=== PATIENT | female | born 1965 | race Caucasian/White ===

== ENCOUNTER 2024-03-03 18:10 | Inpatient (IN) | payer OTHER ==
--- NOTE | 2024-03-03 18:39 | ED ---
Wound/Laceration HPI - General Chief Complaint: Wound/Laceration Stated Complaint: Infection/Wound in foot Time Seen by Provider: 03/03/24 18:16 Source: patient, RN/MD, RN notes reviewed Mode of arrival: EMS Limitations: no limitations - History of Present Illness Initial Comments: 58-year-old female with a history of type 2 diabetes history of heart disease hypertension former smoker who for the past several days has had redness and some swelling to the left foot and she started getting black coloration to the fifth toe on that foot. She presented to [facility] today with diagnosed with a diabetic foot infection. She is transferred here for higher level of care. She has had some chills no fevers or sweats however she was found to have elevated white blood cell count. She was started on IV antibiotics at that facility and transferred here. - Related Data Home Medications Medication Instructions Recorded Confirmed Albuterol Inhaler [Ventolin Hfa 2 puff INHALATION RT-Q6H PRN 06/23/15 03/03/24 Inhaler] Lisinopril/Hydrochlorothiazide 1 tab PO DAILY 06/23/15 03/03/24 [Zestoretic 20-25] Aspirin EC [Ecotrin Low Dose] 81 mg PO DAILY 03/03/24 03/03/24 Cetirizine HCl [Zyrtec] 10 mg PO DAILY PRN 03/03/24 03/03/24 Fluticasone Nasal [place] [Flonase 1 spray EA NOSTRIL DAILY PRN 03/03/24 03/03/24 Nasal [place]] Insulin Glargine,Hum.rec.anlog 20 - 40 units SQ HS 03/03/24 03/03/24 [Lantus Solostar Pen] Insulin Regular [humuLIN R] 20 - 40 units SQ DAILY 03/03/24 03/03/24 Metoprolol Tartrate [Lopressor] 50 mg PO BID 03/03/24 03/03/24 Allergies Allergy/AdvReac Type Severity Reaction Status Date / Time ciprofloxacin [From Cipro] AdvReac Nausea & Verified 03/03/24 18:52 Vomiting ciprofloxacin HCl AdvReac Nausea & Verified 03/03/24 18:52 [From Cipro] Vomiting clindamycin AdvReac Nausea & Verified 03/03/24 18:52 Vomiting sulfamethoxazole AdvReac Nausea & Verified 03/03/24 18:52 [From Bactrim] Vomiting trimethoprim [From Bactrim] AdvReac Nausea & Verified 03/03/24 18:52 Vomiting Review of Systems ROS Statement: Those systems with pertinent positive or pertinent negative responses have been documented in the HPI. ROS Other: All systems not noted in ROS Statement are negative. Past Medical History Past Medical History: Asthma, Diabetes Mellitus, Hypertension Additional Past Medical History / Comment(s): diabetes is diet controlled. retinitis pigmentosa (losing peripheral vision) History of Any Multi-Drug Resistant Organisms: None Reported Additional Past Surgical History / Comment(s): boil under armpit (2000) Past Anesthesia/Blood Transfusion Reactions: No Reported Reaction Past Psychological History: Anxiety Past Alcohol Use History: None Reported Past Drug Use History: None Reported - Past Family History Mother Family Medical History: Hypertension Additional Family Medical History / Comment(s): borderline diabetic Father Family Medical History: Cancer Additional Family Medical History / Comment(s): leukemia, stents placed, at 81 years old General Exam - General Exam Comments Initial Comments: This is a well-developed well-nourished awake alert oriented x 4 female Limitations: no limitations General appearance: alert, in no apparent distress Head exam: Present: atraumatic, normocephalic, normal inspection Eye exam: Present: normal appearance, PERRL, EOMI. Absent: scleral icterus, conjunctival injection, periorbital swelling ENT exam: Present: normal exam, mucous membranes moist Neck exam: Present: normal inspection. Absent: tenderness, meningismus, lymphadenopathy Respiratory exam: Present: normal lung sounds bilaterally. Absent: respiratory distress, wheezes, rales, rhonchi, stridor Cardiovascular Exam: Present: regular rate, normal rhythm, normal heart sounds. Absent: systolic murmur, diastolic murmur, rubs, gallop, clicks GI/Abdominal exam: Present: soft, normal bowel sounds. Absent: distended, tenderness, guarding, rebound, rigid Extremities exam: Present: full ROM, normal capillary refill, other (Left foot demonstrates some numbness to the dorsal aspect of the left foot with erythema consistent with a cellulitis the left fifth toe demonstrates stigmata of diabetic foot infection with what appears to be early eschar formation.). Absent: tenderness, pedal edema, joint swelling, calf tenderness Back exam: Present: normal inspection Neurological exam: Present: alert, oriented X3, CN II-XII intact Psychiatric exam: Present: normal affect, normal mood Skin exam: Present: warm, dry, intact, normal color. Absent: rash Course Vital Signs 03/03/24 18:23 Temperature 98.8 F Pulse Rate 65 Respiratory 18 Rate Blood Pressure 183/73 O2 Sat by Pulse 96 Oximetry Medical Decision Making - Medical Decision Making I did discuss the findings with the patient and family members I did review the materials from [facility]. Patient will be admitted infectious disease and vascular surgery consultation. IV antibiotics was pt. sent in by a medical professional or institution (, [facility], [facility], urgent care, hospital, or jail...) When possible be specific @ -No Did you speak to anyone other than the patient for history (EMS, parent, family, police, friend...)? What history was obtained from this source @ -MS as well as the ER DrAsim [facility] Did you review nursing and triage notes (agree or disagree)? Why? @ -I reviewed and agree with nursing and triage notes Were old charts reviewed (outside hosp., previous admission, EMS record, old EKG, old radiological studies, urgent care reports/EKG's, jail records)? Report findings @ -2014 reported on charts as well as [facility] charting old charts were reviewed Differential Diagnosis (chest pain, altered mental status, abdominal pain women, abdominal pain men, vaginal bleeding, weakness, fever, dyspnea, syncope, headache, dizziness, GI bleed, back pain, seizure, CVA, palpatations, mental health, musculoskeletal)? @ -Diabetic foot infection EKG interpreted by me (3pts min.). @ -Indicated X-rays interpreted by me (1pt min.). @ -Reviewed from [facility] CT interpreted by me (1pt min.). @ -None done U/S interpreted by me (1pt. min.). @ -None done What testing was considered but not performed or refused? (CT, X-rays, U/S, labs)? Why? @ -None What meds were considered but not given or refused? Why? @ -None Did you discuss the management of the patient with other professionals (professionals i.e. , [facility], [employer] [facility] [employer], lab, RT, psych nurse, social services director, international relations professor, teacher, marketing and communications officer, bilingual case manager)? Give summary @ -Did discuss case with Tarah Sheikh covering Dr. Castillo's group Was smoking cessation discussed for >3mins.? @ -No Was critical care preformed (if so, how long)? @ -No Were there social determinants of health that impacted care today? How? (Homelessness, low income, unemployed, alcoholism, drug addiction, transportation, low edu. Level, literacy, decrease access to med. care, [facility], rehab)? @ -No Was there de-escalation of care discussed even if they declined (Discuss DNR or withdrawal of care, Hospice)? DNR status @ -No What co-morbidities impacted this encounter? (DM, HTN, Smoking, COPD, CAD, Cancer, CVA, ARF, Chemo, Hep., AIDS, mental health diagnosis, sleep apnea, morbid obesity)? @ -Diabetes, hypertension, coronary artery disease history of 3 stents Was patient admitted / discharged? Hospital course, mention meds given and route, prescriptions, significant lab abnormalities, going to OR and other pertinent info. @ -Hospital course the patient was admitted for inpatient IV antibiotics ID consultation vascular surgery consultation Undiagnosed new problem with uncertain prognosis? @ -No Drug Therapy requiring intensive monitoring for toxicity (Heparin, Nitro, Insulin, Cardizem)? @ -No Were any procedures done? @ -No Diagnosis/symptom? @ -Acute diabetic foot infection foot, diabetic peripheral neuropathy Acute, or Chronic, or Acute on Chronic? @ -Acute Uncomplicated (without systemic symptoms) or Complicated (systemic symptoms)? @ -Complicated Side effects of treatment? @ -No Exacerbation, Progression, or Severe Exacerbation? @ -No Poses a threat to life or bodily function? How? (Chest pain, USA, NC, pneumonia, PE, COPD, DKA, ARF, appy, cholecystitis, CVA, Diverticulitis, Homicidal, Suicidal, threat to staff... and all critical care pts) @ -Mental Disposition Clinical Impression: Diabetic infection of left foot, Peripheral neuropathy Disposition: ADMITTED IP TO THIS HOSP Condition: Stable Referrals: Dylon Cortes MD [Primary Care Provider] - 1-2 days Time of Disposition: 20:00 Decision Date: 03/03/24 Decision Time: 20:00
[2024-03-03] MEDS ORDERED: NALOXONE 0.4 MG/ML 1 ML VIAL IV PRN (21:13)
[2024-03-03] MEDS ORDERED: FLUTICASONE 50MCG/SPRAY NASAL 16GM EA NOSTRIL PRN (21:16)
[2024-03-03] MEDS ORDERED: ALBUTEROL NEBULIZED 2.5 MG/3 ML INHALATION PRN (21:16)
[2024-03-03] MEDS ORDERED: LORATADINE 10 MG TAB PO PRN (21:16)
[2024-03-03] MEDS ORDERED: DEXTROSE 50% SYRINGE 50 ML IVP PRN ×2 (21:19)
[2024-03-03] MEDS: SODIUM CHLORIDE 0.9% 1,000 ML IV SCH (21:40)
[2024-03-03] MEDS: PIPERACILLIN-TAZOBACTAM 3.375 GM in SODIUM CHLORIDE 0.9% 100 ML IVPB STA (21:40)
[2024-03-03 23:09] LABS: Glucose,Whole Blood 129 mg/dL (70-110)
[2024-03-04] MEDS: INSULIN ASPART (NovoLOG) 100 UNIT/ML VIAL SQ SCH (07:34)
[2024-03-04 07:37] LABS: Glucose,Whole Blood 148 mg/dL (70-110)
[2024-03-04 08:31] LABS: ALT 14 U/L (4-34); AST 19 U/L (14-36); African American GFR (CKD) 49 (>60 ml/min/1.73 sqM); Albumin 3.5 g/dL (3.5-5.0); Albumin/Globulin Ratio 1.2; Alkaline Phosphatase 89 U/L (38-126); Anion Gap 9 mmol/L; Blood Urea Nitrogen 31 mg/dL (7-17); Calcium 8.3 mg/dL (8.4-10.2); Carbon Dioxide 24 mmol/L (22-30); Chloride 107 mmol/L (98-107); Globulin 2.9 g/dL; Glucose 135 mg/dL (74-99); Non-African American GFR(CKD) 42 (>60 ml/min/1.73 sqM); Potassium 4.3 mmol/L (3.5-5.1); Sodium 140 mmol/L (137-145); Total Bilirubin 0.4 mg/dL (0.2-1.3); Total Protein 6.4 g/dL (6.3-8.2)
[2024-03-04] MEDS: PIPERACILLIN-TAZOBACTAM 3.375 GM in SODIUM CHLORIDE 0.9% 100 ML IVPB SCH (08:54)
[2024-03-04] MEDS: METOPROLOL TARTRATE 50 MG TAB PO SCH (08:56)
--- NOTE | 2024-03-04 10:14 | US ---
EXAMINATION TYPE: US arterial LE multi level DATE OF EXAM: 03/04/2024 9:33 AM CLINICAL INDICATION: Female, 58 years old with history of left fifth toe gangrene,diabetes; Left 5th toe gangrene. burning sensation left foot History of: Smoker: previous Hypertension: yes Diabetic: yes Hyperlipidemia: no TIA/CVA: no Previous Vascular Surgery: yes, 3 cardiac stents 10 years ago [place]: yes Claudication: no Gangrene: yes Doppler Waveforms: Right: Monophasic Left: Monophasic Right Brachial Pressure: 143 Left Brachial Pressure: deferred due to IV Ankle-Brachial Indices: Right: n/a Left: 0.87 (Vessel hardening > 1.4; Normal 0.9 - 1.4, Moderate 0.7 - 0.9, Severe 0.5-0.7) Toe Brachial Indices: Right: 0.70 Left: unable to obtain IMPRESSION: Mild peripheral vascular disease on the left and limited evaluation of the right with noncompressible vessels on the right.
[2024-03-04] MEDS: LISINOPRIL-HCTZ 20-25 MG 1 EACH TAB PO SCH (10:16)
[2024-03-04 11:05] LABS: Basophils # (A) 0.05 X 10*3/uL (0.00-0.10); Basophils % (A) 0.4 %; Eosinophils # (A) 0.22 X 10*3/uL (0.04-0.35); Eosinophils % (A) 1.8 %; HCT 30.9 % (37.2-46.3); HGB 9.5 g/dL (12.0-15.0); Lymphocytes # (A) 1.46 X 10*3/uL (0.90-5.00); MCH 26.5 pg (27.0-32.0); MCHC 30.7 g/dL (32.0-37.0); MCV 86.3 FL (80.0-97.0); Mean Platelet Volume 10.2 FL (9.5-12.2); Monocytes # (A) 0.83 X 10*3/uL (0.20-1.00); Monocytes % (A) 6.8 %; NRBC Per 100 WBC 0 X 10*3/uL (0.00-0.01); Neutrophils # (A) 9.53 X 10*3/uL (1.80-7.70); Neutrophils % (A) 78.6 %; Platelet Count 364 X 10*3/uL (140-440); RBC 3.58 X 10*6/uL (4.10-5.20); RDW 15.1 % (11.5-14.5); WBC 12.14 X 10*3/uL (4.50-10.00)
--- NOTE | 2024-03-04 12:15 | P.GSCN ---
History of Present Illness Consult date: 03/04/24 Reason for Consult: Left diabetic foot infection Requesting physician: Shahram Braun History of present illness: This is a pleasant 58-year-old who was transferred from [facility] for concerns of acute left diabetic foot infection. She has a past medical history including insulin-dependent diabetes for 25 to 30 years, coronary artery disease status post stenting, asthma and hypertension. She states she noticed the toe turning black about 4 to 5 days ago. States that there was some burning pain associated with it. Patient does admit that she cannot sustain walking long distances that she we will get weakness in her hips and thighs. Denies any known history of peripheral arterial disease. She has been afebrile. She currently denies any chest pain, shortness of breath, abdominal pain, nausea or vomiting. She denies any fevers or chills. Labs WBC 12.1 hemoglobin 9.5 platelet count 364,000 sodium 140 potassium 4.3 BUN 31 creatinine 1.36 GFR 42 glucose 135 Hemoglobin A1c 9.6 Review of Systems A 14 point review systems was completed all pertinent positives and negatives as stated in the HPI. Past Medical History Past Medical History: Asthma, Diabetes Mellitus, Hypertension Additional Past Medical History / Comment(s): diabetes is diet controlled. retinitis pigmentosa (losing peripheral vision) History of Any Multi-Drug Resistant Organisms: None Reported Additional Past Surgical History / Comment(s): boil under armpit (2000) Past Anesthesia/Blood Transfusion Reactions: No Reported Reaction Past Psychological History: Anxiety Past Alcohol Use History: None Reported Past Drug Use History: None Reported - Past Family History Mother Family Medical History: Hypertension Additional Family Medical History / Comment(s): borderline diabetic Father Family Medical History: Cancer Additional Family Medical History / Comment(s): leukemia, stents placed, at 81 years old Medications and Allergies Home Medications Medication Instructions Recorded Confirmed Type Albuterol Inhaler [Ventolin Hfa 2 puff INHALATION RT-Q6H PRN 06/23/15 03/03/24 History Inhaler] Lisinopril/Hydrochlorothiazide 1 tab PO DAILY 06/23/15 03/03/24 History [Zestoretic 20-25] Aspirin EC [Ecotrin Low Dose] 81 mg PO DAILY 03/03/24 03/03/24 History Cetirizine HCl [Zyrtec] 10 mg PO DAILY PRN 03/03/24 03/03/24 History Fluticasone Nasal [place] [Flonase 1 spray EA NOSTRIL DAILY PRN 03/03/24 03/03/24 History Nasal [place]] Insulin Glargine,Hum.rec.anlog 20 - 40 units SQ HS 03/03/24 03/03/24 History [Lantus Solostar Pen] Insulin Regular [humuLIN R] 20 - 40 units SQ DAILY 03/03/24 03/03/24 History Metoprolol Tartrate [Lopressor] 50 mg PO BID 03/03/24 03/03/24 History Allergies Allergy/AdvReac Type Severity Reaction Status Date / Time ciprofloxacin [From Cipro] AdvReac Nausea & Verified 03/03/24 18:52 Vomiting ciprofloxacin HCl AdvReac Nausea & Verified 03/03/24 18:52 [From Cipro] Vomiting clindamycin AdvReac Nausea & Verified 03/03/24 18:52 Vomiting sulfamethoxazole AdvReac Nausea & Verified 03/03/24 18:52 [From Bactrim] Vomiting trimethoprim [From Bactrim] AdvReac Nausea & Verified 03/03/24 18:52 Vomiting Surgical - Exam Vital Signs Temp Pulse Resp BP Pulse Ox 98.8 F 65 18 183/73 96 03/03/24 18:23 03/03/24 18:23 03/03/24 18:23 03/03/24 18:23 03/03/24 18:23 General appearance: The patient is alert, oriented, appears in no acute distress. HET: Head is normocephalic and atraumatic. Pupils are equal and reactive. Neck: Supple. Right carotid bruit. Heart: Regular. Lungs: Equal expansion, normal respiratory effort. Abdomen: Soft, nontender, nondistended. Extremities: Bilateral femoral pulses present. Nonpalpable popliteal, PT and DP pulses. Left foot swelling, fifth toe dry gangrene, warm to the touch with good capillary refill and sensorimotor intact. Neurological: No focal deficits. alert and oriented x 3. Results - Labs 03/04/24 07:12 03/04/24 07:12 Abnormal Lab Results - Last 24 Hours (Table) 03/03/24 03/04/24 03/04/24 Range/Units 23:07 07:12 07:33 BUN 31 H (7-17) mg/dL Creatinine 1.36 H (0.52-1.04) mg/dL Glucose 135 H (74-99) mg/dL POC Glucose (mg/dL) 129 H 148 H (70-110) mg/dL Calcium 8.3 L (8.4-10.2) mg/dL Diabetes panel 03/04/24 Range/Units 07:12 Sodium 140 (137-145) mmol/L Potassium 4.3 (3.5-5.1) mmol/L Chloride 107 (98-107) mmol/L Carbon Dioxide 24 (22-30) mmol/L BUN 31 H (7-17) mg/dL Creatinine 1.36 H (0.52-1.04) mg/dL Glucose 135 H (74-99) mg/dL Calcium 8.3 L (8.4-10.2) mg/dL AST 19 (14-36) U/L ALT 14 (4-34) U/L Alkaline Phosphatase 89 (38-126) U/L Total Protein 6.4 (6.3-8.2) g/dL Albumin 3.5 (3.5-5.0) g/dL Calcium panel 03/04/24 Range/Units 07:12 Calcium 8.3 L (8.4-10.2) mg/dL Albumin 3.5 (3.5-5.0) g/dL Pituitary panel 03/04/24 Range/Units 07:12 Sodium 140 (137-145) mmol/L Potassium 4.3 (3.5-5.1) mmol/L Chloride 107 (98-107) mmol/L Carbon Dioxide 24 (22-30) mmol/L BUN 31 H (7-17) mg/dL Creatinine 1.36 H (0.52-1.04) mg/dL Glucose 135 H (74-99) mg/dL Calcium 8.3 L (8.4-10.2) mg/dL Adrenal panel 03/04/24 Range/Units 07:12 Sodium 140 (137-145) mmol/L Potassium 4.3 (3.5-5.1) mmol/L Chloride 107 (98-107) mmol/L Carbon Dioxide 24 (22-30) mmol/L BUN 31 H (7-17) mg/dL Creatinine 1.36 H (0.52-1.04) mg/dL Glucose 135 H (74-99) mg/dL Calcium 8.3 L (8.4-10.2) mg/dL Total Bilirubin 0.4 (0.2-1.3) mg/dL AST 19 (14-36) U/L ALT 14 (4-34) U/L Alkaline Phosphatase 89 (38-126) U/L Total Protein 6.4 (6.3-8.2) g/dL Albumin 3.5 (3.5-5.0) g/dL - Imaging Comments: Arterial ultrasound bilateral lower extremities, bilateral lower extremity monophasic Doppler waveforms, right lower extremity noncompressible, left GREGG 0.87. Impression reports mild peripheral vascular disease on the left and limited evaluation of the right with noncompressible vessels on the right. Assessment and Plan Assessment: 1. Dry gangrene left fifth toe 2. Insulin-dependent diabetes mellitus 3. History of coronary artery disease status post stents 4. Hypertension Plan: 1. Lower extremity arterial duplex ordered and reviewed 2. Carotid duplex ordered for right carotid bruit 3. CT angiogram abdomen pelvis aorta with runoff ordered for tomorrow 4. Continue IV hydration for now for elevated creatinine 5. Recommend strict glycemic control 6. Further recommendations forthcoming based on clinical course Thank you for this consultation, we will continue to follow. The impression and plan of care has been dictated as directed. I performed a history and examination of this patient, discussed the same with the dictator. I agree with the dictator's note ,documented as a scribe. Any additional findings or plans will be noted.
[2024-03-04 12:26] LABS: Glucose,Whole Blood 264 mg/dL (70-110)
--- NOTE | 2024-03-04 12:37 | US ---
EXAMINATION TYPE: US carotid duplex BILAT DATE OF EXAM: 03/04/2024 COMPARISON: NONE CLINICAL INDICATION: Female, 58 years old with history of right carotid bruit; right carotid bruit TECHNIQUE: Carotid duplex ultrasound examination. Indirect Doppler criteria was utilized. FINDINGS: EXAM MEASUREMENTS: RIGHT: Peak Systolic Velocity (PSV) cm/sec ----- Right CCA: 98.7 ----- Right ICA: 116 ----- Right ECA: 127 ICA/CCA ratio: 1.18 RIGHT: End Diastole cm/sec ----- Right CCA: 15.6 ----- Right ICA: 23.0 ----- Right ECA: 3.3 LEFT: Peak Systolic Velocity (PSV) cm/sec ----- Left CCA: 133 ----- Left ICA: 122 ----- Left ECA: 201 ICA/CCA ratio: 0.92 LEFT: End Diastole cm/sec ----- Left CCA: 19.8 ----- Left ICA: 35.5 ----- Left ECA: 2.6 VERTEBRALS (direction of flow): Right Vertebral: Antegrade Left Vertebral: Antegrade Rhythm: Normal BINGO CLERK NOTES: Mild plaque bilateral bifurcations. Increased velocities left ECA IMPRESSION: Less than 50% stenosis of the bilateral carotid bifurcations. Criteria for Assigning % of Stenosis / Diameter reduction (Estimation based on the indirect measurements of the internal carotid artery velocities (ICA PSV). 1. Normal (no stenosis)=ICA PSV < 125 cm/s: ratio < 2.0: ICA EDV<40 cm/s. 2. Less than 50% stenosis=ICA PSV < 125 cm/s: ratio < 2.0: ICA EDV<40 cm/s. 3. 50 to 69% stenosis=ICA PSV of 125 to 230 cm/s: ration 2.0 ? 4.0: ICA EDV 40-100 cm/s. 4. Greater than 70% stenosis to near occlusion= ICA PSV > 230 cm/s: ratio > 4.0: ICA EDV > 100 cm/s. 5. Near occlusion= ICA PSV velocities may be low or undetectable: variable ratio and ICA EDV. 6. Total occlusion=unable to detect flow.
[2024-03-04] MEDS ORDERED: VANCOMYCIN IV PER PHARMACY 1 EACH MISC MISCELLANE PRN (12:46)
[2024-03-04] MEDS: VANCOMYCIN 1,500 MG in SODIUM CHLORIDE 0.9% 500 ML 500 ML IVPB ONE (13:40)
[2024-03-04 16:46] LABS: Glucose,Whole Blood 342 mg/dL (70-110)
[2024-03-04] MEDS: AMPICILLIN-SULBACTAM 3 GM in SODIUM CHLORIDE 0.9% 100 ML IVPB SCH (17:21)
[2024-03-04 22:44] LABS: Glucose,Whole Blood 277 mg/dL (70-110)
--- NOTE | 2024-03-04 23:03 | P.CONS ---
History of Present Illness - Reason for Consult Consult date: 03/04/24 Diabetic foot infection Requesting physician: Shahram Braun - Chief Complaint Left fifth toe discoloration and foot redness X few days - History of Present Illness Patient is a 58-year-old female with a past medical history significant for diabetes mellitus hypertension and asthma patient presenting to the hospital for evaluation of left fifth toe discoloration apparently the patient initially presented to [facility] with discoloration of the left foot with associated swelling and some redness to the left foot area and the patient was subsequently transferred to [facility] patient mention her symptom has been going on for about 4 to 5 days she is not very clear about any trauma to the left foot area noticed to have discoloration with associated swelling redness and some burning pain, mild to moderate intensity denies having any drainage and no high-grade fever on presentation to the hospital the patient was afebrile no fever have recorded subsequently patient was not tachycardic hypotensive or hypoxic did have a white count of 12.14 with a left shift creatinine was 1.36 liver enzymes are normal patient has been started on Zosyn infectious disease was consulted for further management of antibiotic therapy Review of Systems Positive point and negatives has been mentioned in the HPI, complete review of systems was performed and all other systems are negative Past Medical History Past Medical History: Asthma, Diabetes Mellitus, Hypertension Additional Past Medical History / Comment(s): diabetes is diet controlled. retinitis pigmentosa (losing peripheral vision) History of Any Multi-Drug Resistant Organisms: None Reported Additional Past Surgical History / Comment(s): boil under armpit (2000) Past Anesthesia/Blood Transfusion Reactions: No Reported Reaction Past Psychological History: Anxiety Past Alcohol Use History: None Reported Past Drug Use History: None Reported - Past Family History Mother Family Medical History: Hypertension Additional Family Medical History / Comment(s): borderline diabetic Father Family Medical History: Cancer Additional Family Medical History / Comment(s): leukemia, stents placed, at 81 years old Medications and Allergies Home Medications Medication Instructions Recorded Confirmed Type Albuterol Inhaler [Ventolin Hfa 2 puff INHALATION RT-Q6H PRN 06/23/15 03/03/24 History Inhaler] Lisinopril/Hydrochlorothiazide 1 tab PO DAILY 06/23/15 03/03/24 History [Zestoretic 20-25] Aspirin EC [Ecotrin Low Dose] 81 mg PO DAILY 03/03/24 03/03/24 History Cetirizine HCl [Zyrtec] 10 mg PO DAILY PRN 03/03/24 03/03/24 History Fluticasone Nasal [place] [Flonase 1 spray EA NOSTRIL DAILY PRN 03/03/24 03/03/24 History Nasal [place]] Insulin Glargine,Hum.rec.anlog 20 - 40 units SQ HS 03/03/24 03/03/24 History [Lantus Solostar Pen] Insulin Regular [humuLIN R] 20 - 40 units SQ DAILY 03/03/24 03/03/24 History Metoprolol Tartrate [Lopressor] 50 mg PO BID 03/03/24 03/03/24 History Clopidogrel [Plavix] 75 mg PO DAILY #30 tab 03/07/24 Rx Acetaminophen Tab [Tylenol] 650 mg PO Q6HR PRN tab 03/08/24 Rx Amoxic-Pot Clav 875-125Mg 1 tab PO BID 10 Days #20 tab 03/08/24 Rx [Augmentin 875-125] Atorvastatin [Lipitor] 40 mg PO HS #30 tab 03/08/24 Rx Allergies Allergy/AdvReac Type Severity Reaction Status Date / Time ciprofloxacin [From Cipro] AdvReac Nausea & Verified 03/03/24 18:52 Vomiting ciprofloxacin HCl AdvReac Nausea & Verified 03/03/24 18:52 [From Cipro] Vomiting clindamycin AdvReac Nausea & Verified 03/03/24 18:52 Vomiting sulfamethoxazole AdvReac Nausea & Verified 03/03/24 18:52 [From Bactrim] Vomiting trimethoprim [From Bactrim] AdvReac Nausea & Verified 03/03/24 18:52 Vomiting Physical Exam Vitals: Vital Signs Temp Pulse Resp BP Pulse Ox 03/04/24 10:15 82 17 164/74 99 03/04/24 08:58 98.1 F 88 18 143/60 96 03/04/24 06:00 83 18 123/51 98 03/04/24 00:00 90 18 131/54 98 03/03/24 18:23 98.8 F 65 18 183/73 96 Intake and Output 03/03/24 03/04/24 03/04/24 22:59 06:59 14:59 Other: Weight 83.915 kg GENERAL DESCRIPTION: Middle-aged [place] lying in bed, no distress. No tachypnea or accessory muscle of respiration use. HEENT: Shows Pallor , no scleral icterus. Oral mucous membrane is dry. No p haryngeal erythema or thrush NECK: Trachea central, no thyromegaly. LUNGS: Unlabored breathing. Clear to auscultation anteriorly. No wheeze or crackle. HEART: S1, S2, regular rate and rhythm. No loud murmur ABDOMEN: Soft, no tenderness , guarding or rigidity, no organomegaly EXTREMITIES: Left fifth toe with discoloration and did have swelling and redness to the left foot dorsum area SKIN: No rash, no masses palpable. NEUROLOGICAL: The patient is awake, alert, oriented x3, mood and affect normal. Results CBC & Chem 7: 03/08/24 12:10 03/08/24 12:10 Labs: Abnormal Lab Results - Last 24 Hours (Table) 03/03/24 03/04/24 03/04/24 Range/Units 23:07 07:12 07:33 BUN 31 H (7-17) mg/dL Creatinine 1.36 H (0.52-1.04) mg/dL Glucose 135 H (74-99) mg/dL POC Glucose (mg/dL) 129 H 148 H (70-110) mg/dL Calcium 8.3 L (8.4-10.2) mg/dL Assessment and Plan (1) Allergy to multiple antibiotics Status: Acute Code(s): Z88.1 - ALLERGY STATUS TO OTHER ANTIBIOTIC AGENTS SNOMED Code(s): 291775776 (2) Cellulitis of left foot Status: Acute Code(s): L03.116 - CELLULITIS OF LEFT LOWER LIMB SNOMED Code(s): 58682159078078403 (3) Diabetic infection of left foot Status: Acute Code(s): E11.628 - TYPE 2 DIABETES MELLITUS WITH OTHER SKIN COMPLICATIONS; L08.9 - LOCAL INFECTION OF THE SKIN AND SUBCUTANEOUS TISSUE, UNSP SNOMED Code(s): 30420597 (4) Gangrene of toe of left foot Status: Acute Code(s): I96 - GANGRENE, NOT ELSEWHERE CLASSIFIED SNOMED Code(s): 83424025355605961 Plan: 1patient presented hospital left fifth toe gangrene in this patient with underlying diabetes mellitus and diabetic foot infection we will need to cover for the polymicrobial ortiz associated with diabetic foot infection. Patient has not been on antibiotic in the recent past clinical notes resistant gram- negative pathogen 2-discontinue Zosyn 3-we will start patient on vancomycin pharmacy to dose and Unasyn 4-await decision for vascular surgery regarding debridement/amputation of the fifth toe along with deep culture We will follow on clinical condition and cultures to further adjust medication if needed Thank you for this consultation we will follow the patient along with you Dictation was produced using [employer] dictation software. please excuse any grammatical, word or spelling errors. Time with Patient: Greater than 30
[2024-03-04] MEDS: INSULIN DETEMIR (LEVEMIR) 100 UNIT/ML SYR SQ SCH (23:52)
[2024-03-05] MEDS: ACETAMINOPHEN TAB 325 MG TAB PO PRN (00:11)
--- NOTE | 2024-03-05 00:14 | P.HPIM ---
History of Present Illness H&P Date: 03/04/24 Chief Complaint: Left toe infection Patient is a 58-year-old female with known history of coronary disease status post stent placement, diabetes type 2 insulin-dependent, hypertension, asthma and history of retinitis pigmentosa, anxiety presents to ER with complaints of left fifth toe discoloration. Patient states that she has been having worsening discoloration and and chills on and off for the past 4 to 5 days. Denies any recent trauma. Patient was initially presented to [facility] [place] the hospital and subsequently transferred to [facility] for further management. She was also having subjective fevers at home. She was given antibiotics prior to transfer. Left lower extremity vascular study showed mild peripheral vascular disease on the left and limited evaluation of the right with noncompressible vessels on the right. Laboratory data showed WBC 12.1 hemoglobin 9.5 and platelets 364 Sodium 140 potassium 4.3 chloride 107 bicarbonate 24 BUN 31 creatinine 1.36 and blood sugar 135 and he is A1c 9.6 liver enzymes are not elevated. Review of Systems Constitutional: Patient denies any fever or chills . No generalized weakness or weight loss. Abdomen: Patient denied nausea vomiting and diarrhea and abdominal pain. Cardiovascular: Patient denies any chest pain or short of breath no palpitations. Respiratory: patient denied any cough is from production. No shortness of breath Neurologic: Patient denied any numbness or tingling headache. Musculoskeletal: Patient denies any complaints of joint swelling or deformity. Left fifth toe infection/discoloration Skin: Negative Psychiatric: Negative Endocrine: No heat or cold intolerance. No recent weight gain. Genitourinary: No dysuria or hematuria. All other 14 point ROS negative except the above Past Medical History Past Medical History: Asthma, Diabetes Mellitus, Hypertension Additional Past Medical History / Comment(s): diabetes is diet controlled. retinitis pigmentosa (losing peripheral vision) History of Any Multi-Drug Resistant Organisms: None Reported Additional Past Surgical History / Comment(s): boil under armpit (2000) Past Anesthesia/Blood Transfusion Reactions: No Reported Reaction Past Psychological History: Anxiety Past Alcohol Use History: None Reported Past Drug Use History: None Reported - Past Family History Mother Family Medical History: Hypertension Additional Family Medical History / Comment(s): borderline diabetic Father Family Medical History: Cancer Additional Family Medical History / Comment(s): leukemia, stents placed, at 81 years old Medications and Allergies Home Medications Medication Instructions Recorded Confirmed Type Albuterol Inhaler [Ventolin Hfa 2 puff INHALATION RT-Q6H PRN 06/23/15 03/03/24 History Inhaler] Lisinopril/Hydrochlorothiazide 1 tab PO DAILY 06/23/15 03/03/24 History [Zestoretic 20-25] Aspirin EC [Ecotrin Low Dose] 81 mg PO DAILY 03/03/24 03/03/24 History Cetirizine HCl [Zyrtec] 10 mg PO DAILY PRN 03/03/24 03/03/24 History Fluticasone Nasal [place] [Flonase 1 spray EA NOSTRIL DAILY PRN 03/03/24 03/03/24 History Nasal [place]] Insulin Glargine,Hum.rec.anlog 20 - 40 units SQ HS 03/03/24 03/03/24 History [Lantus Solostar Pen] Insulin Regular [humuLIN R] 20 - 40 units SQ DAILY 03/03/24 03/03/24 History Metoprolol Tartrate [Lopressor] 50 mg PO BID 03/03/24 03/03/24 History Allergies Allergy/AdvReac Type Severity Reaction Status Date / Time ciprofloxacin [From Cipro] AdvReac Nausea & Verified 03/03/24 18:52 Vomiting ciprofloxacin HCl AdvReac Nausea & Verified 03/03/24 18:52 [From Cipro] Vomiting clindamycin AdvReac Nausea & Verified 03/03/24 18:52 Vomiting sulfamethoxazole AdvReac Nausea & Verified 03/03/24 18:52 [From Bactrim] Vomiting trimethoprim [From Bactrim] AdvReac Nausea & Verified 03/03/24 18:52 Vomiting Physical Exam Vitals: Vital Signs Temp Pulse Resp BP Pulse Ox 03/04/24 08:58 98.1 F 88 18 143/60 96 03/04/24 06:00 83 18 123/51 98 03/04/24 00:00 90 18 131/54 98 03/03/24 18:23 98.8 F 65 18 183/73 96 Intake and Output 03/03/24 03/04/24 03/04/24 22:59 06:59 14:59 Other: Weight 83.915 kg PHYSICAL EXAMINATION: Patient is lying in the bed comfortably, no acute distress, awake alert and oriented.. HEENT: Normocephalic. Neck is supple. Pupils reactive. Nostrils clear. Oral cavity is moist. Neck reveals no JVD, carotid bruits, or thyromegaly. CHEST EXAMINATION: Trachea is central. Symmetrical expansion. Lung fernandes clear to auscultation and percussion. CARDIAC: Normal S1, S2 with no gallops. No murmurs ABDOMEN: Soft. Bowel sounds normal. No organomegaly. No abdominal bruits. Extremities: reveal no edema. Left fifth toe discoloration. No discharge noted. No clubbing or cyanosis Neurologically awake, alert, oriented x3 with well-coordinated movements. No focal deficits noted Skin: No rash or skin lesions. Psychiatric: Coperative. Nonsuicidal Musculoskeletal: No joint swelling or deformity. Normal range of motion. Results CBC & Chem 7: 03/04/24 07:12 03/05/24 07:05 Labs: Abnormal Lab Results - Last 24 Hours (Table) 03/03/24 03/04/24 03/04/24 Range/Units 23:07 07:12 07:33 BUN 31 H (7-17) mg/dL Creatinine 1.36 H (0.52-1.04) mg/dL Glucose 135 H (74-99) mg/dL POC Glucose (mg/dL) 129 H 148 H (70-110) mg/dL Calcium 8.3 L (8.4-10.2) mg/dL Thrombosis Risk Factor Assmnt - DVT/VTE Prophylaxis DVT/VTE Prophylaxis: Pharmacologic Prophylaxis ordered Assessment and Plan Assessment: Left fifth toe gangrene and diabetic foot infection Diabetes type 2 insulin-dependent uncontrolled with A1c level 9.6 Acute kidney injury with underlying CKD stage III Coronary disease with history of stent placement Hypertension Asthma Retinitis pigmentosa with loss of peripheral vision Anxiety Prior history of smoking DVT prophylaxis with heparin subcu Plan: Patient will be continued on antibiotics. He was given a dose of Zosyn in the ER. Continue with Unasyn and vancomycin as per ID recommendations. Vascular surgery was consulted for possible debridement and deep wound cultures. Aspirin is on hold. Continue the insulin regimen and titrate dose as needed. Albuterol elation as needed for shortness of breath. ID and vascular surgery is on board. Follow-up closely. Time with Patient: Greater than 30
[2024-03-05 07:42] LABS: Glucose,Whole Blood 271 mg/dL (70-110)
[2024-03-05 08:00] LABS: African American GFR (CKD) 42 (>60 ml/min/1.73 sqM); Anion Gap 11 mmol/L; Blood Urea Nitrogen 28 mg/dL (7-17); Calcium 8.1 mg/dL (8.4-10.2); Carbon Dioxide 21 mmol/L (22-30); Chloride 108 mmol/L (98-107); Glucose 280 mg/dL (74-99); Non-African American GFR(CKD) 37 (>60 ml/min/1.73 sqM); Potassium 4.5 mmol/L (3.5-5.1); Sodium 140 mmol/L (137-145)
--- NOTE | 2024-03-05 09:10 | P.PN ---
Subjective Progress Note Date: 03/05/24 Principal diagnosis: Gangrene left fifth toe Patient is seen and examined today as a follow-up. She went down for her CT angiogram this morning. Results are currently pending. She has been afebrile. She denies any fevers chills, abdominal pain, nausea or vomiting. No increase in pain in the left foot. Infectious diseases following patient, she is currently on Unasyn and vancomycin. Patient underwent carotid duplex yesterday which reported less than 50% stenosis of bilateral carotid bifurcations. Objective - Vital Signs Vital signs: Vital Signs Temp 98.6 F 03/05/24 07:15 Pulse 89 03/05/24 07:15 Resp 15 03/05/24 07:15 BP 175/71 03/05/24 07:15 Pulse Ox 95 03/05/24 07:15 FiO2 Intake & Output 03/04/24 03/05/24 03/05/24 18:59 06:59 18:59 Intake Total 590 Balance 590 Weight 83.915 kg Intake: Oral 590 Other: Voiding Method Toilet # Voids 1 - Exam General appearance: The patient is alert, oriented, appears in no acute distress. HET: Head is normocephalic and atraumatic. Pupils are equal and reactive. Neck: Supple. Abdomen: Soft, nondistended. Extremities: Left foot swelling, fifth toe dry gangrene. Neurological: No focal deficits. Alert and oriented x 3. - Labs CBC & Chem 7: 03/05/24 07:05 03/05/24 07:05 Labs: Abnormal Lab Results - Last 24 Hours (Table) 03/04/24 03/04/24 03/04/24 Range/Units 07:12 07:12 12:24 WBC 12.14 H (4.50-10.00) X 10*3/uL RBC 3.58 L (4.10-5.20) X 10*6/uL Hgb 9.5 L (12.0-15.0) g/dL Hct 30.9 L (37.2-46.3) % MCH 26.5 L (27.0-32.0) pg MCHC 30.7 L (32.0-37.0) g/dL RDW 15.1 H (11.5-14.5) % Immature Gran # 0.05 H (0.00-0.04) X 10*3/uL Neutrophils # 9.53 H (1.80-7.70) X 10*3/uL Chloride (98-107) mmol/L Carbon Dioxide (22-30) mmol/L BUN (7-17) mg/dL Creatinine (0.52-1.04) mg/dL Glucose (74-99) mg/dL POC Glucose (mg/dL) 264 H (70-110) mg/dL Hemoglobin A1c 9.6 H (<=6.0) % Calcium (8.4-10.2) mg/dL 03/04/24 03/04/24 03/05/24 Range/Units 16:43 22:41 07:05 WBC (4.50-10.00) X 10*3/uL RBC (4.10-5.20) X 10*6/uL Hgb (12.0-15.0) g/dL Hct (37.2-46.3) % MCH (27.0-32.0) pg MCHC (32.0-37.0) g/dL RDW (11.5-14.5) % Immature Gran # (0.00-0.04) X 10*3/uL Neutrophils # (1.80-7.70) X 10*3/uL Chloride 108 H (98-107) mmol/L Carbon Dioxide 21 L (22-30) mmol/L BUN 28 H (7-17) mg/dL Creatinine 1.53 H (0.52-1.04) mg/dL Glucose 280 H (74-99) mg/dL POC Glucose (mg/dL) 342 H 277 H (70-110) mg/dL Hemoglobin A1c (<=6.0) % Calcium 8.1 L (8.4-10.2) mg/dL 03/05/24 Range/Units 07:40 WBC (4.50-10.00) X 10*3/uL RBC (4.10-5.20) X 10*6/uL Hgb (12.0-15.0) g/dL Hct (37.2-46.3) % MCH (27.0-32.0) pg MCHC (32.0-37.0) g/dL RDW (11.5-14.5) % Immature Gran # (0.00-0.04) X 10*3/uL Neutrophils # (1.80-7.70) X 10*3/uL Chloride (98-107) mmol/L Carbon Dioxide (22-30) mmol/L BUN (7-17) mg/dL Creatinine (0.52-1.04) mg/dL Glucose (74-99) mg/dL POC Glucose (mg/dL) 271 H (70-110) mg/dL Hemoglobin A1c (<=6.0) % Calcium (8.4-10.2) mg/dL Assessment and Plan Assessment: 1. Dry gangrene left fifth toe 2. Insulin-dependent diabetes mellitus 3. History of coronary artery disease status post stents 4. Hypertension Plan: 1. Lower extremity arterial duplex ordered and reviewed 2. Carotid duplex ordered for right carotid bruit, less than 50% stenosis bilateral carotid bifurcations 3. CT angiogram abdomen pelvis aorta with runoff reviewed 4. Consistent carbohydrate diet 5. Recommend strict glycemic control 6. Will plan for abdominal aortogram with runoff on , 03/07/2024 Thank you for this consultation, we will continue to follow. The impression and plan of care has been dictated as directed. Dr. Haines I performed a history and examination of this patient, discussed the same with the dictator. I agree with the dictator's note ,documented as a scribe. Any additional findings or plans will be noted.
[2024-03-05] MEDS: HEPARIN SODIUM,PORCINE 5,000 UNIT/ML 1 ML VIAL SQ SCH (09:58)
[2024-03-05] MEDS: VANCOMYCIN 1,500 MG in SODIUM CHLORIDE 0.9% 500 ML 500 ML IVPB SCH (11:07)
--- NOTE | 2024-03-05 11:18 | CT ---
EXAMINATION TYPE: CT angio abd aorta w/Runoff CT DLP: 2531 mGycm, Automated exposure control for dose reduction was used. DATE OF EXAM: 03/05/2024 9:09 AM COMPARISON: None CLINICAL INDICATION:Female, 58 years old with history of left fifth toe gangrene, nonpalpable pulses; PHH, left fifth toe gangrene, nonpalpable pulses TECHNIQUE: Multiple thin slice sub-millimeter images were obtained after administration of contrast. 3-D reconstructed images and maximum intensity projection images were obtained. CT angio abd aorta w /Runoff CT Contrast: Contrast used:80 mL of Isovue 370 with IV Contrast, Oral contrast used: None FINDINGS: CTA Abdomen and pelvis: The abdominal aorta does not demonstrate aneurysmal dilatation. Atherosclero tic plaquing is identified within the abdominal aorta. There is a small caliber of the abdominal aort a. The origins of the superior mesenteric artery, renal arteries, catheter lab CT angiogram mesenteri c artery, and celiac axis are patent. There are 2 left and one right renal arteries. The iliac vessel s are normal in morphology the common iliac and external iliac arteries are patent. No significant st enosis. CTA Lower extremities: Right: The common femoral and superficial femoral arteries are patent. There is severe atheroscleroti c plaque along the course of the superficial femoral artery with scattered areas of high-grade stenos is. There is poor visualization of contrast within the vasculature especially in the popliteal artery which is diminutive with severe atherosclerotic plaque. Posterior and anterior tibial arteries are h eavily calcified and have limited evaluation there felt to be patent. Left: The common femoral and superficial femoral arteries are patent. There is severe atheroscleroti c plaque along the course of the superficial femoral artery with scattered areas of high-grade stenos is. There is poor visualization of contrast within the vasculature especially in the popliteal artery which is diminutive with severe atherosclerotic plaque. Posterior and anterior tibial arteries are h eavily calcified and have limited evaluation there felt to be patent. LOWER CHEST: The lower septal thickening with trace bilateral pleural effusions and cardiomegaly. No evidence of focal consolidation, pneumothorax. LIVER: Unremarkable GALLBLADDER AND BILE DUCTS: Layering high density gallstones in the gallbladder lumen. PANCREAS: Unremarkable. SPLEEN: Unremarkable. ADRENAL GLANDS: Unremarkable. KIDNEYS AND URETERS: No evidence of hydronephrosis or renal calculus. The ureters are unremarkable. Areas of cortical thinning within the right kidney suggestive of prior vascular insults. PELVIS BLADDER: Unremarkable REPRODUCTIVE: Arterial enhancing lesion within the left ovary which is asymmetric. ABDOMEN & PELVIS STOMACH AND BOWEL: No evidence of bowel obstruction. PERITONEUM: No evidence of pneumoperitoneum or free fluid. MUSCULOSKELETAL: No acute osseous abnormalities LYMPH NODES: No gross evidence for lymphadenopathy. SOFT TISSUE/ABDOMINAL WALL: Fat-containing umbilical hernia. IMPRESSION 1. Heavily calcified bilateral lower extremity arterial vasculature involving the superficial femora l arteries and extending inferiorly to the. Evaluation extending from the popliteal artery to the fee t is limited due to severe atherosclerotic plaque. There is diminutive caliber of the superficial fem oral arteries with multiple areas of high-grade stenosis. Consider [employer] angiogram for definitive evaluation of the arterial vasculature extending from the popliteal arteries to the feet. 2. Pulmonary vascular congestion and trace bilateral pleural effusions correlate serum BNP for conge stive heart failure. Few airspace opacities could also be sequela from heart failure. 3. Arterial enhancing region in the left ovary which is asymmetric.
[2024-03-05 11:40] LABS: Basophils # (A) 0.03 X 10*3/uL (0.00-0.10); Basophils % (A) 0.3 %; Eosinophils # (A) 0.14 X 10*3/uL (0.04-0.35); Eosinophils % (A) 1.4 %; HCT 27.8 % (37.2-46.3); HGB 8.4 g/dL (12.0-15.0); Lymphocytes # (A) 1.48 X 10*3/uL (0.90-5.00); Lymphocytes % (A) 15.2 %; MCH 25.8 pg (27.0-32.0); MCHC 30.2 g/dL (32.0-37.0); MCV 85.5 FL (80.0-97.0); Mean Platelet Volume 9.9 FL (9.5-12.2); Monocytes # (A) 0.66 X 10*3/uL (0.20-1.00); Monocytes % (A) 6.8 %; NRBC Per 100 WBC 0 X 10*3/uL (0.00-0.01); Neutrophils # (A) 7.39 X 10*3/uL (1.80-7.70); Neutrophils % (A) 75.9 %; Platelet Count 335 X 10*3/uL (140-440); RBC 3.25 X 10*6/uL (4.10-5.20); WBC 9.74 X 10*3/uL (4.50-10.00)
[2024-03-05 12:07] LABS: % Iron Saturation 7.22 (12.00-45.00); Iron 20 UG/DL (50-170); Total Iron Binding Capacity 277 UG/DL (228-460)
[2024-03-05 12:12] LABS: Glucose,Whole Blood 211 mg/dL (70-110)
[2024-03-05 15:15] VITALS: BMI 31.7
[2024-03-05 17:31] LABS: Glucose,Whole Blood 256 mg/dL (70-110)
[2024-03-05 20:34] LABS: Glucose,Whole Blood 262 mg/dL (70-110)
[2024-03-05] MEDS: PANTOPRAZOLE 40 MG TABLET PO SCH (21:54)
--- NOTE | 2024-03-05 23:23 | P.PN ---
Subjective Progress Note Date: 03/05/24 Patient is a 58-year-old female with known history of coronary disease status post stent placement, diabetes type 2 insulin-dependent, hypertension, asthma and history of retinitis pigmentosa, anxiety presents to ER with complaints of left fifth toe discoloration. Patient states that she has been having worsening discoloration and and chills on and off for the past 4 to 5 days. Denies any recent trauma. Patient was initially presented to [facility] in the hospital and subsequently transferred to [facility] for further management. She was also having subjective fevers at home. She was given antibiotics prior to transfer. Left lower extremity vascular study showed mild peripheral vascular disease on the left and limited evaluation of the right with noncompressible vessels on the right. Laboratory data showed WBC 12.1 hemoglobin 9.5 and platelets 364 Sodium 140 potassium 4.3 chloride 107 bicarbonate 24 BUN 31 creatinine 1.36 and blood sugar 135 and he is A1c 9.6 liver enzymes are not elevated. 03/05/2024 Patient is currently sitting in the chair. Awake active alert intact significant no complaints of chest pain or shortness of breath. No fever no chills. On room air. No cough or sputum production. Patient had CT angiogram of the abdomen aorta with runoff showed heavily calcified bilateral lower extremity arterial vasculature involving the superficial femoral arteries and extending inferiorly to the popliteal artery to the feet is limited due to severe atherosclerotic plaque. Pulmonary vascular congestion and trace bilateral pleural effusions correlate serum BNP for CHF. Diffuse airspace opacities could also be sequela of heart failure. Arterial enhancing lesion in the left ovary which is asymmetric. Laboratory data showed WBC 9.7 hemoglobin 8.4 and platelets 335 iron profile is consistent with deficiency. B12 331 Otherwise renal function worsened with creatinine level 1.53 and BUN 28. Patient is being continued on antibiotics Unasyn and vancomycin. ID and vascular surgery is on board. Current medications reviewed. Objective - Vital Signs Vital signs: Vital Signs Temp 97.8 F 03/05/24 20:00 Pulse 93 03/05/24 20:00 Resp 16 03/05/24 20:00 BP 163/74 03/05/24 20:00 Pulse Ox 97 03/05/24 20:00 FiO2 Intake & Output 03/05/24 03/05/24 03/06/24 06:59 18:59 06:59 Intake Total 590 360 Balance 590 360 Weight 83.915 kg 83.915 kg Intake: Oral 590 360 Other: Voiding Method Toilet Toilet # Voids 1 4 - Exam PHYSICAL EXAMINATION: Patient is lying in the bed comfortably, no acute distress, awake alert and oriented.. HEENT: Normocephalic. Neck is supple. Pupils reactive. Nostrils clear. Oral cavity is moist. Neck reveals no JVD, carotid bruits, or thyromegaly. CHEST EXAMINATION: Trachea is central. Symmetrical expansion. Lung fernandes clear to auscultation and percussion. CARDIAC: Normal S1, S2 with no gallops. No murmurs ABDOMEN: Soft. Bowel sounds normal. No organomegaly. No abdominal bruits. Extremities: reveal no edema. Left fifth toe discoloration. No discharge noted. No clubbing or cyanosis Neurologically awake, alert, oriented x3 with well-coordinated movements. No focal deficits noted Skin: No rash or skin lesions. Psychiatric: Coperative. Nonsuicidal Musculoskeletal: No joint swelling or deformity. Normal range of motion. - Labs CBC & Chem 7: 03/05/24 07:05 03/05/24 07:05 Labs: Abnormal Lab Results - Last 24 Hours (Table) 03/05/24 03/05/24 03/05/24 Range/Units 07:05 07:05 07:40 RBC 3.25 L (4.10-5.20) X 10*6/uL Hgb 8.4 L (12.0-15.0) g/dL Hct 27.8 L (37.2-46.3) % MCH 25.8 L (27.0-32.0) pg MCHC 30.2 L (32.0-37.0) g/dL RDW 15.0 H (11.5-14.5) % Chloride 108 H (98-107) mmol/L Carbon Dioxide 21 L (22-30) mmol/L BUN 28 H (7-17) mg/dL Creatinine 1.53 H (0.52-1.04) mg/dL Glucose 280 H (74-99) mg/dL POC Glucose (mg/dL) 271 H (70-110) mg/dL Calcium 8.1 L (8.4-10.2) mg/dL Iron 20 L (50-170) UG/DL % Saturation 7.22 L (12.00-45.00) Transferrin 198.0 L (204.0-354.0) mg/dL 03/05/24 03/05/24 03/05/24 Range/Units 12:09 17:30 20:33 RBC (4.10-5.20) X 10*6/uL Hgb (12.0-15.0) g/dL Hct (37.2-46.3) % MCH (27.0-32.0) pg MCHC (32.0-37.0) g/dL RDW (11.5-14.5) % Chloride (98-107) mmol/L Carbon Dioxide (22-30) mmol/L BUN (7-17) mg/dL Creatinine (0.52-1.04) mg/dL Glucose (74-99) mg/dL POC Glucose (mg/dL) 211 H 256 H 262 H (70-110) mg/dL Calcium (8.4-10.2) mg/dL Iron (50-170) UG/DL % Saturation (12.00-45.00) Transferrin (204.0-354.0) mg/dL Assessment and Plan Assessment: Left fifth toe gangrene and diabetic foot infection Diabetes type 2 insulin-dependent uncontrolled with A1c level 9.6 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 With underlying CKD stage III Iron deficiency anemia Coronary disease with history of stent placement Hypertension Asthma Retinitis pigmentosa with loss of peripheral vision Anxiety Prior history of smoking DVT prophylaxis with heparin subcu Plan: Patient will be continued on antibiotics. He was given a dose of Zosyn in the ER. Continue with Unasyn and vancomycin as per ID recommendations. Vascular surgery was consulted for possible debridement and deep wound cultures. Patient had current duplex and also abdominal aorta with runoff. Vascular surgery is planning for abdominal aortogram with runoff on , 03/07/2024 Aspirin is on hold. Will supplement IV iron once infection is controlled. Continue the insulin regimen and titrate dose as needed. Albuterol elation as needed for shortness of breath. ID and vascular surgery is on board. Follow-up closely. Time with Patient: Greater than 30
[2024-03-06] MEDS: CALCIUM CARBONATE 500 MG CHEWABLE PO PRN (01:42)
[2024-03-06 04:06] LABS: Glucose,Whole Blood 119 mg/dL (70-110)
[2024-03-06 07:10] LABS: Glucose,Whole Blood 122 mg/dL (70-110)
[2024-03-06] MEDS: INSULIN ASPART (NovoLOG) 100 UNIT/ML VIAL SQ SCH (08:04)
[2024-03-06 08:13] LABS: African American GFR (CKD) 62 (>60 ml/min/1.73 sqM); Anion Gap 8 mmol/L; Blood Urea Nitrogen 19 mg/dL (7-17); Calcium 8.8 mg/dL (8.4-10.2); Carbon Dioxide 23 mmol/L (22-30); Chloride 107 mmol/L (98-107); Glucose 108 mg/dL (74-99); Non-African American GFR(CKD) 54 (>60 ml/min/1.73 sqM); Potassium 4.2 mmol/L (3.5-5.1); Sodium 138 mmol/L (137-145)
--- NOTE | 2024-03-06 10:44 | P.PN ---
Subjective Progress Note Date: 03/06/24 Principal diagnosis: Gangrene left fifth toe Patient is seen and examined today as a follow-up. She states that she is having shortness of breath and lower extremity swelling. She does have asthma and he has not used her albuterol as ordered. Repeat BMP sodium 138 potassium 4 .2 BUN 19 creatinine 1.12 glucose 108. She has been afebrile. Oxygen saturation 93 to 100% on room air. Patient underwent CT angiogram yesterday reporting heavily calcified bilateral lower extremity arterial vasculature with severe arthrosclerotic plaque. Pulmonary vascular congestion and trace bilateral pleural effusion correlate serum BNP for congestive heart failure. Few airspace opacities could also be sequela from heart failure. Arterial enhancing region left ovary which is asymmetric. Objective - Vital Signs Vital signs: Vital Signs Temp 98.7 F 03/06/24 07:10 Pulse 88 03/06/24 07:10 Resp 17 03/06/24 07:10 BP 151/78 03/06/24 07:10 Pulse Ox 93 L 03/06/24 07:10 FiO2 Intake & Output 03/05/24 03/06/24 03/06/24 18:59 06:59 18:59 Intake Total 360 590 Output Total 286 Balance 360 304 Weight 83.915 kg Intake: Oral 360 590 Output: Post Void Residual 286 Other: Voiding Method Toilet Toilet # Voids 4 2 - Exam . General appearance: The patient is alert, oriented, appears in no acute distress. HET: Head is normocephalic and atraumatic. Pupils are equal and reactive. Neck: Supple. Heart: Regular. Lungs: Equal expansion, normal respiratory effort. Abdomen: Soft, nontender, nondistended. Extremities: Bilateral lower extremity edema. Left foot with erythema on dorsal aspect of foot, fifth toe dry gangrene. Good capillary refill. Neurological: No focal deficits. Strength and sensation are grossly intact. - Labs CBC & Chem 7: 03/05/24 07:05 03/06/24 06:59 Labs: Abnormal Lab Results - Last 24 Hours (Table) 03/05/24 03/05/24 03/05/24 Range/Units 07:05 07:05 12:09 RBC 3.25 L (4.10-5.20) X 10*6/uL Hgb 8.4 L (12.0-15.0) g/dL Hct 27.8 L (37.2-46.3) % MCH 25.8 L (27.0-32.0) pg MCHC 30.2 L (32.0-37.0) g/dL RDW 15.0 H (11.5-14.5) % BUN (7-17) mg/dL Creatinine (0.52-1.04) mg/dL Glucose (74-99) mg/dL POC Glucose (mg/dL) 211 H (70-110) mg/dL Iron 20 L (50-170) UG/DL % Saturation 7.22 L (12.00-45.00) Transferrin 198.0 L (204.0-354.0) mg/dL 03/05/24 03/05/24 03/06/24 Range/Units 17:30 20:33 04:03 RBC (4.10-5.20) X 10*6/uL Hgb (12.0-15.0) g/dL Hct (37.2-46.3) % MCH (27.0-32.0) pg MCHC (32.0-37.0) g/dL RDW (11.5-14.5) % BUN (7-17) mg/dL Creatinine (0.52-1.04) mg/dL Glucose (74-99) mg/dL POC Glucose (mg/dL) 256 H 262 H 119 H (70-110) mg/dL Iron (50-170) UG/DL % Saturation (12.00-45.00) Transferrin (204.0-354.0) mg/dL 03/06/24 03/06/24 Range/Units 06:59 07:08 RBC (4.10-5.20) X 10*6/uL Hgb (12.0-15.0) g/dL Hct (37.2-46.3) % MCH (27.0-32.0) pg MCHC (32.0-37.0) g/dL RDW (11.5-14.5) % BUN 19 H (7-17) mg/dL Creatinine 1.12 H (0.52-1.04) mg/dL Glucose 108 H (74-99) mg/dL POC Glucose (mg/dL) 122 H (70-110) mg/dL Iron (50-170) UG/DL % Saturation (12.00-45.00) Transferrin (204.0-354.0) mg/dL Assessment and Plan Assessment: 1. Dry gangrene left fifth toe 2. Bilateral lower extremity peripheral vascular disease 3. Insulin-dependent diabetes mellitus 4. Shortness of breath 4. History of coronary artery disease status post stents 5. Hypertension 6. Asthma Plan: 1. Lower extremity arterial duplex ordered and reviewed 2. Carotid duplex ordered for right carotid bruit, less than 50% stenosis bilateral carotid bifurcations 3. CT angiogram abdomen pelvis aorta with runoff reviewed 4. Consistent carbohydrate diet. N.p.o. after midnight 5. Recommend strict glycemic control 6. Chest x-ray ordered 7. Discontinue IV fluids 8. ROSETTA hose to bilateral lower extremities 9. Rest of medical management per primary medical team 10. Will plan for abdominal aortogram with runoff on , 03/07/2024 with possible intervention Thank you for this consultation, we will continue to follow. The impression and plan of care has been dictated as directed. Dr. Ledesma I performed a history and examination of this patient, discussed the same with the dictator. I agree with the dictator's note ,documented as a scribe. Any additional findings or plans will be noted.
[2024-03-06] MEDS: FUROSEMIDE 10 MG/ML 2 ML VIAL IV ONE (11:35)
[2024-03-06 12:23] LABS: Glucose,Whole Blood 277 mg/dL (70-110)
--- NOTE | 2024-03-06 13:15 | XR ---
EXAMINATION TYPE: XR chest 2V DATE OF EXAM: 03/06/2024 COMPARISON: 06/24/2015 HISTORY: 58 year-old female shortness of breath TECHNIQUE: Frontal and lateral views FINDINGS: Heart upper limits of normal in size. Mild hyperinflation. Mild interstitial densities. Patchy corrections sergeant ior basilar opacity on the lateral view and patchy medial right basilar opacity noted as well. No ple ural effusion. IMPRESSION: COPD with increased patchy medial right basilar and posterior basilar opacities. Correlate for atelec tasis versus developing pneumonia.
[2024-03-06] MEDS ORDERED: IPRATROPIUM-ALBUTEROL 3 ML NEB INHALATION PRN (14:39)
[2024-03-06 17:18] LABS: Glucose,Whole Blood 242 mg/dL (70-110)
[2024-03-06] MEDS: IPRATROPIUM-ALBUTEROL 3 ML NEB INHALATION SCH (19:43)
[2024-03-06 20:11] LABS: Glucose,Whole Blood 261 mg/dL (70-110)
--- NOTE | 2024-03-07 05:46 | P.PN ---
Subjective Progress Note Date: 03/06/24 Patient is a 58-year-old female with known history of coronary disease status post stent placement, diabetes type 2 insulin-dependent, hypertension, asthma and history of retinitis pigmentosa, anxiety presents to ER with complaints of left fifth toe discoloration. Patient states that she has been having worsening discoloration and and chills on and off for the past 4 to 5 days. Denies any recent trauma. Patient was initially presented to [facility] in the hospital and subsequently transferred to [facility] for further management. She was also having subjective fevers at home. She was given antibiotics prior to transfer. Left lower extremity vascular study showed mild peripheral vascular disease on the left and limited evaluation of the right with noncompressible vessels on the right. Laboratory data showed WBC 12.1 hemoglobin 9.5 and platelets 364 Sodium 140 potassium 4.3 chloride 107 bicarbonate 24 BUN 31 creatinine 1.36 and blood sugar 135 and he is A1c 9.6 liver enzymes are not elevated. 03/05/2024 Patient is currently sitting in the chair. Awake active alert intact significant no complaints of chest pain or shortness of breath. No fever no chills. On room air. No cough or sputum production. Patient had CT angiogram of the abdomen aorta with runoff showed heavily calcified bilateral lower extremity arterial vasculature involving the superficial femoral arteries and extending inferiorly to the popliteal artery to the feet is limited due to severe atherosclerotic plaque. Pulmonary vascular congestion and trace bilateral pleural effusions correlate serum BNP for CHF. Diffuse airspace opacities could also be sequela of heart failure. Arterial enh ancing lesion in the left ovary which is asymmetric. Laboratory data showed WBC 9.7 hemoglobin 8.4 and platelets 335 iron profile is consistent with deficiency. B12 331 Otherwise renal function worsened with creatinine level 1.53 and BUN 28. Patient is being continued on antibiotics Unasyn and vancomycin. ID and vascular surgery is on board. Current medications reviewed. 03/06/2024 Patient is seen in follow-up today with infectious disease and vascular surgery following. Patient scheduled to undergo abdominal angiogram with vascular surgery tomorrow. Patient reporting feeling bloated with swelling and lower extremity swelling and reports she feels it is secondary to antibiotics. Patient also had been on IV hydration which has been discontinued as patient is eating and drinking. Patient insisted on receiving a dose of Lasix for her continued swelling. Patient reports she cannot afford to gain weight. Patient is afebrile and denies chest pain or palpitations. Patient has been tolerating diet with no reported nausea or vomiting. Encouraged to increase activity as t olerated. Review of systems: Constitutional: No reports of fatigue, fever, or chills Cardiovascular: No reports of chest pain or palpitations Respiratory: reports of intermittent shortness of breath GI: No reports of nausea, vomiting, or diarrhea : No reports of dysuria or retention Neurovascular: No reports of weakness or numbness All medications have been reviewed PHYSICAL EXAMINATION: Patient is sitting up in the chair, no acute distress, awake alert and oriented.. Well-developed, elderly appearing, obese HEENT: Normocephalic. Neck is supple. Pupils reactive. Nostrils clear. Oral c avity is moist. Neck reveals no JVD, carotid bruits, or thyromegaly. CHEST EXAMINATION: Trachea is central. Symmetrical expansion. Lung fernandes clear to auscultation and percussion. CARDIAC: Normal S1, S2 with no gallops. No murmurs ABDOMEN: Soft. Obese. Bowel sounds normal. No organomegaly. No abdominal bruits. Extremities: reveal no edema. Left fifth toe discoloration. No discharge noted . No clubbing or cyanosis Neurologically awake, alert, oriented x3 with well-coordinated movements. No focal deficits noted Skin: No rash or skin lesions. Psychiatric: Cooperative. Non-suicidal, anxious. Musculoskeletal: No joint swelling or deformity. Normal range of motion. 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 With underlying CKD stage III Iron deficiency anemia Coronary disease with history of stent placement Hypertension Asthma, not in exacerbation Retinitis pigmentosa with loss of peripheral vision Obesity with a BMI of 31.8 Anxiety Prior history of smoking DVT prophylaxis with heparin subcu GI prophylaxis Full code Plan: Patient will be continued on antibiotics. Currently on vancomycin as per ID recommendations. Patient has been refusing reporting it is making her gain weight Vascular surgery following for possible debridement and deep wound cultures. Patient had current duplex and also abdominal aorta with runoff. Vascular surgery is planning for abdominal aortogram with runoff on , 03/07/2024 Aspirin is on hold. Will supplement IV iron once infection is controlled. Continue the current insulin regimen and titrate dose as needed. Albuterol as needed for shortness of breath. Encouraged to increase activity as tolerated. Recommend PT/OT therapy evaluation. Will follow-up on repeat labs. Due to multiple complex medical issues, prognosis is guarded The impression and plan of care has been dictated by Tarah Aguilar, Nurse Practitioner as directed. Dr. Neena MD I have performed a history and examination and MDM of this patient, discussed the same with the dictator, and agree with the dictator's assessment and plan as written ,documented as a scribe. Based on total visit time, I have performed more than 50% of the visit. Objective - Vital Signs Vital signs: Vital Signs Temp 98.7 F 03/06/24 07:10 Pulse 88 03/06/24 07:10 Resp 17 03/06/24 07:10 BP 151/78 03/06/24 07:10 Pulse Ox 93 L 03/06/24 07:10 FiO2 Intake & Output 03/05/24 03/06/24 03/06/24 18:59 06:59 18:59 Intake Total 360 590 Output Total 286 Balance 360 304 Weight 83.915 kg Intake: Oral 360 590 Output: Post Void Residual 286 Other: Voiding Method Toilet Toilet # Voids 4 2 - Labs CBC & Chem 7: 03/05/24 07:05 03/06/24 06:59 Labs: Abnormal Lab Results - Last 24 Hours (Table) 03/05/24 03/05/24 03/05/24 Range/Units 07:05 07:05 12:09 RBC 3.25 L (4.10-5.20) X 10*6/uL Hgb 8.4 L (12.0-15.0) g/dL Hct 27.8 L (37.2-46.3) % MCH 25.8 L (27.0-32.0) pg MCHC 30.2 L (32.0-37.0) g/dL RDW 15.0 H (11.5-14.5) % BUN (7-17) mg/dL Creatinine (0.52-1.04) mg/dL Glucose (74-99) mg/dL POC Glucose (mg/dL) 211 H (70-110) mg/dL Iron 20 L (50-170) UG/DL % Saturation 7.22 L (12.00-45.00) Transferrin 198.0 L (204.0-354.0) mg/dL 03/05/24 03/05/24 03/06/24 Range/Units 17:30 20:33 04:03 RBC (4.10-5.20) X 10*6/uL Hgb (12.0-15.0) g/dL Hct (37.2-46.3) % MCH (27.0-32.0) pg MCHC (32.0-37.0) g/dL RDW (11.5-14.5) % BUN (7-17) mg/dL Creatinine (0.52-1.04) mg/dL Glucose (74-99) mg/dL POC Glucose (mg/dL) 256 H 262 H 119 H (70-110) mg/dL Iron (50-170) UG/DL % Saturation (12.00-45.00) Transferrin (204.0-354.0) mg/dL 03/06/24 03/06/24 Range/Units 06:59 07:08 RBC (4.10-5.20) X 10*6/uL Hgb (12.0-15.0) g/dL Hct (37.2-46.3) % MCH (27.0-32.0) pg MCHC (32.0-37.0) g/dL RDW (11.5-14.5) % BUN 19 H (7-17) mg/dL Creatinine 1.12 H (0.52-1.04) mg/dL Glucose 108 H (74-99) mg/dL POC Glucose (mg/dL) 122 H (70-110) mg/dL Iron (50-170) UG/DL % Saturation (12.00-45.00) Transferrin (204.0-354.0) mg/dL
[2024-03-07 05:55] LABS: Glucose,Whole Blood 155 mg/dL (70-110)
[2024-03-07 07:05] LABS: Glucose,Whole Blood 133 mg/dL (70-110)
[2024-03-07] MEDS ORDERED: VANCOMYCIN TROUGH DUE 1 EACH MISC MISCELLANE ONE (08:00)
[2024-03-07 08:04] LABS: African American GFR (CKD) 66 (>60 ml/min/1.73 sqM); Anion Gap 11 mmol/L; Blood Urea Nitrogen 18 mg/dL (7-17); Calcium 9.1 mg/dL (8.4-10.2); Carbon Dioxide 22 mmol/L (22-30); Chloride 106 mmol/L (98-107); Glucose 124 mg/dL (74-99); Non-African American GFR(CKD) 57 (>60 ml/min/1.73 sqM); Potassium 3.9 mmol/L (3.5-5.1); Sodium 139 mmol/L (137-145)
[2024-03-07 08:11] LABS: NT-Pro-B-Type Natriuretic Pept 3300 pg/mL
[2024-03-07] MEDS ORDERED: LIDOCAINE 1% INJ 10MG/ML (20 ML MDV) ONE (11:08)
[2024-03-07] MEDS ORDERED: fentaNYL (PF) 50 MCG/ML 2 ML AMP ONE (11:08)
[2024-03-07] MEDS ORDERED: HEPARIN SODIUM 1,000 UN/ML (10ML VL) ONE (11:08)
[2024-03-07] MEDS: LIDOCAINE 1% INJ 10MG/ML (20 ML MDV) SQ ONE (11:37)
[2024-03-07] MEDS: MIDAZOLAM 2 MG/2 ML VIAL IVP ONE ×3 (11:37→12:12)
[2024-03-07] MEDS ORDERED: hydrALAZINE HCL 20 MG/ML 1 ML VIAL ONE (11:40)
[2024-03-07] MEDS: fentaNYL (PF) 50 MCG/1 ML VIAL IVP ONE ×3 (11:41→12:47)
[2024-03-07] MEDS: hydrALAZINE HCL 20 MG/ML 1 ML VIAL IVP ONE (11:52)
[2024-03-07] MEDS ORDERED: CLOPIDOGREL 75 MG TAB ONE (12:44)
[2024-03-07] MEDS: CLOPIDOGREL 75 MG TAB PO ONE (12:47)
[2024-03-07] MEDS: SODIUM CHLORIDE 0.9% 500 ML 500 ML IV ONE (12:48)
[2024-03-07] MEDS ORDERED: NALOXONE 0.4 MG/ML 1 ML VIAL IVP PRN (13:24)
--- NOTE | 2024-03-07 15:57 | P.OP ---
Date of Procedure: 03/07/24 Description of Procedure: Preoperative diagnosis: Diabetic foot ulceration, Hayti 5 peripheral arterial disease, left fifth toe gangrene Postoperative diagnosis: Same Procedure: Ultrasound-guided right common femoral artery access Right iliofemoral angiogram Selective left lower extremity angiogram third order to the distal popliteal artery Percutaneous transluminal balloon angioplasty of the left superficial femoral artery with a 5 x 200 drug-coated balloon Percutaneous transluminal stent placement 5 x 120 self-expanding noncovered stent Percutaneous closure Moderate conscious sedation time 79 minutes, personal monitoring certified RN administration and hemodynamic monitoring Surgeon: Jo Ledesma D.O. EBL: 10 cc] IV fluids: See records Urine output: Not measured Drains: None Complications: None immediately apparent Condition: Stable Operative indication and findings: Patient is a 58-year-old female with evidence of gangrene and diabetic foot infection on her left fifth toe. She had noncompressibility on her lower extremity toe images and due to this it was recommended she undergo an angiogram. She presents today for this. Risk and benefits were discussed, she seemingly understood and was willing to proceed. Procedure in detail: [Patient was taken to the special suite and placed in supine position. The bilateral groins were prepped and draped in usual sterile fashion. A preprocedural timeout performed, all parties were in agreement. Using ultrasound, the right common femoral artery was identified. It did appear to be small in nature. It was free of significant calcific disease. Ultrasound was utilized and a image was stored. Direct access was obtained. Seldinger technique was used to place a 5 Romansh sheath. A right iliofemoral angiogram was performed showing widely patent vessels without significant disease. Catheters and wires were then used to access the left iliac system. An angiogram was performed. The common, internal and external iliac arteries appear patent without significant disease. The common femoral artery appears patent without significant disease, there is a very high takeoff of the profunda which appeared patent without significant disease. The superficial femoral artery appeared patent with moderate diffuse disease further distally at the adductor canal. The popliteal artery appeared patent. The below-knee popliteal artery appeared patent. The anterior tibial artery was not visualized at its takeoff however did appear to have flow via collaterals further distally. The tibioperoneal trunk appeared patent, there is no significant visualize posterior tibial artery. The peroneal artery appeared patent to the level of the mid calf. Difficult to discern anterior tibial versus peroneal vessel at the ankle, likely anterior tibial based on brisk flow. Catheters and wires were then used and attempts were made to access the potential orifice of the anterior tibial. This was unsuccessful after multiple maneuvers. There was no orifice or visualized takeoff of the posterior tibial at this time. Attention was then turned towards the superficial femoral artery. A 5 x 200 drug-coated balloon was utilized and insufflated for prolonged hold. Repeat angiogram did show evidence of dissection with haziness which was uncertain if it was truly flow-limiting however given the appearance and area finally was decided to place a stent. A 5 x 120 stent was placed overlying the areas of concern and a repeat balloon of the 5 x 40 at the distal outflow was performed showing significant improvement of the visualized flow with brisk washing. Repeat left lower extremity angiogram was performed showing brisk flow through the superficial femoral artery. The 6 Romansh sheath was then replaced with a short 6 sheath and and a Vascade closure device was deployed in standard fashion. Manual pressure was held till hemostasis is adequate. The patient tolerated the procedure well.
[2024-03-07 17:35] LABS: Glucose,Whole Blood 254 mg/dL (70-110)
--- NOTE | 2024-03-07 19:50 | P.PN ---
Progress Note - Text Progress Note Date: 03/07/24 Patient is a 58-year-old female with known history of coronary disease status post stent placement, diabetes type 2 insulin-dependent, hypertension, asthma and history of retinitis pigmentosa, anxiety presents to ER with complaints of left fifth toe discoloration. Patient states that she has been having worsening discoloration and and chills on and off for the past 4 to 5 days. Denies any recent trauma. Patient was initially presented to [facility] in the hospital and subsequently transferred to [facility] for further management. She was also having subjective fevers at home. She was given antibiotics prior to transfer. Left lower extremity vascular study showed mild peripheral vascular disease on the left and limited evaluation of the right with noncompressible vessels on the right. Laboratory data showed WBC 12.1 hemoglobin 9.5 and platelets 364 Sodium 140 potassium 4.3 chloride 107 bicarbonate 24 BUN 31 creatinine 1.36 and blood sugar 135 and he is A1c 9.6 liver enzymes are not elevated. 03/05/2024 Patient is currently sitting in the chair. Awake active alert intact significant no complaints of chest pain or shortness of breath. No fever no chills. On room air. No cough or sputum production. Patient had CT angiogram of the abdomen aorta with runoff showed heavily calcified bilateral lower extremity arterial vasculature involving the superficial femoral arteries and extending inferiorly to the popliteal artery to the feet is limited due to severe atherosclerotic plaque. Pulmonary vascular congestion and trace bilateral pleural effusions correlate serum BNP for CHF. Diffuse airspace opacities could also be sequela of heart failure. Arterial enhancing lesion in the left ovary which is asymmetric. Laboratory data showed WBC 9.7 hemoglobin 8.4 and platelets 335 iron profile is consistent with deficiency. B12 331 Otherwise renal function worsened with creatinine level 1.53 and BUN 28. Patient is being continued on antibiotics Unasyn and vancomycin. ID and vascular surgery is on board. Current medications reviewed. 03/06/2024 Patient is seen in follow-up today with infectious disease and vascular surgery following. Patient scheduled to undergo abdominal angiogram with vascular surgery tomorrow. Patient reporting feeling bloated with swelling and lower extremity swelling and reports she feels it is secondary to antibiotics. Patient also had been on IV hydration which has been discontinued as patient is eating and drinking. Patient insisted on receiving a dose of Lasix for her continued swelling. Patient reports she cannot afford to gain weight. Patient is afebrile and denies chest pain or palpitations. Patient has been tolerating diet with no reported nausea or vomiting. Encouraged to increase activity as tolerated. March 07, 2024: Saw the patient this morning. NPO. Pending surgery this afternoon. Daughter at the bedside. Had multiple questions. Answered at length. Patient not been taking vancomycin counseled about renal function. ID was informed yesterday. Patient had smoked questions specific to the surgery. Will defer that to vascular. Later this afternoon, patient underwent right iliofemoral angiogram with runoff. Patient underwent PTCA of the left superficial femoral artery and stent placement. Active Medications Acetaminophen (Acetaminophen Tab 325 Mg Tab) 650 mg PO Q6HR PRN PRN Reason: Mild Pain or Fever > 100.5 Last Admin: 03/05/24 00:11 Dose: 650 mg Albuterol/Ipratropium (Ipratropium-Albuterol 3 Ml Neb) 3 ml INHALATION RT-TID PRN PRN Reason: Shortness Of Breath Or Wheezing Aspirin (Aspirin 81 Mg) 81 mg PO DAILY [facility] Calcium Carbonate/Glycine (Calcium Carbonate 500 Mg Chewable) 500 mg PO QID PRN PRN Reason: Heartburn Last Admin: 03/06/24 01:42 Dose: 500 mg Clopidogrel Bisulfate (Clopidogrel 75 Mg Tab) 75 mg PO DAILY [facility] Dextrose/Water (Dextrose 50% Syringe 50 Ml) 25 ml IVP PER PROTOCOL PRN; Protocol PRN Reason: Hypoglycemia Dextrose/Water (Dextrose 50% Syringe 50 Ml) 50 ml IVP PER PROTOCOL PRN; Protocol PRN Reason: Hypoglycemia Fluticasone Propionate (Fluticasone 50mcg/[place] Nasal 16gm) 1 spray EA NOSTRIL DAILY PRN PRN Reason: Allergy Symptoms Lisinopril/HCTZ (Lisinopril-Hctz 20-25 Mg 1 Each Tab) 1 each PO DAILY [facility] Last Admin: 03/07/24 08:44 Dose: 1 each Heparin Sodium (Porcine) (Heparin Sodium,Porcine 5,000 Unit/Ml 1 Ml Vial) 5,000 unit SQ Q8HR [facility] Last Admin: 03/07/24 17:29 Dose: 5,000 unit Ampicillin Sodium/Sulbactam (Sodium 3 gm/ Sodium Chloride) 100 mls @ 200 mls/hr IVPB Q8HR [facility]; Protocol Last Admin: 03/07/24 17:29 Dose: 200 mls/hr Vancomycin HCl 1,500 mg/ (Sodium Chloride) 500 mls @ 167 mls/hr IVPB Q24HR [facility] Last Admin: 03/07/24 08:28 Dose: Not Given Insulin Aspart (Insulin Aspart (Novolog) 100 Unit/Ml Vial) 10 unit SQ AC-TID [facility] Last Admin: 03/07/24 17:39 Dose: 10 unit Insulin Detemir (Insulin Detemir (Levemir) 100 Unit/Ml Syr) 40 unit SQ HS [facility] Last Admin: 03/06/24 20:30 Dose: 40 unit Loratadine (Loratadine 10 Mg Tab) 10 mg PO DAILY PRN PRN Reason: Allergy Symptoms Metoprolol Tartrate (Metoprolol Tartrate 50 Mg Tab) 50 mg PO BID [facility] Last Admin: 03/07/24 08:44 Dose: 50 mg Naloxone HCl (Naloxone 0.4 Mg/Ml 1 Ml Vial) 0.2 mg IV Q2M PRN PRN Reason: Opioid Reversal Naloxone HCl (Naloxone 0.4 Mg/Ml 1 Ml Vial) 0.2 mg IVP Q2M PRN PRN Reason: Opioid Reversal Pantoprazole Sodium (Pantoprazole 40 Mg Tablet) 40 mg PO DAILY [facility] Last Admin: 03/07/24 08:44 Dose: 40 mg On examination: VITAL SIGNS: [98.4, 86, 16, 124 x 74, 96% room air] GENERAL APPEARANCE: BMI 31.8, laying in bed. Some facial hair HEENT: Normal external appearance of nose and ear. Oral cavity normal EYES: Pupils equal. Conjunctiva normal. NECK: JVD not raised. Mass not palpable. RESPIRATORY: Respiratory effort normal. Lungs clear to auscultation. CARDIOVASCULAR: First and second sounds normal. No edema. ABDOMEN: Soft. Liver and spleen not palpable. No tenderness. No mass palpable. PSYCHIATRY: Alert and oriented x3. Mood and affect normal. EXTREMITIES: Left leg fifth toe gangrene three quarters distally. Tenderness with some surrounding redness INVESTIGATIONS, reviewed in the clinical context: March 07: Sodium 139 potassium 3.9 BUN 18 creatinine 1.07 February 6: Creatinine 1.36 CT angiogram: Heavily calcified bilateral lower extremity arterial vasculature involving the superficial femoral arteries. Extending inferiorly. Extending into the femoral artery then is limited due to severe atherosclerotic plaque. Multiple areas of high-grade stenosis. Assessment and plan: -Acute left fifth toe gangrene and diabetic foot infection, secondary to diabetes and PAD IV Unasyn. IV vancomycin.-Being followed by ID Being followed by Dr. Ledesma from vascular -Severe peripheral arterial disease As per CT angiogram. Patient on Plavix. 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 With underlying CKD stage III Vancomycin has been held. Follow labs -Iron deficiency anemia -Coronary disease with history of stent placement Plavix. Aspirin-on hold -Essential hypertension Lopressor 50 mg twice daily. Zestoretic 20/25 -Intubated asthma, not in exacerbation Albuterol as needed -Retinitis pigmentosa with loss of peripheral vision -Obesity with a BMI of 31.8 Weight loss measures -Anxiety -Full code
[2024-03-07 19:55] LABS: Glucose,Whole Blood 163 mg/dL (70-110)
[2024-03-07] MEDS: ATORVASTATIN 40 MG TAB PO SCH (20:09)
--- NOTE | 2024-03-07 22:07 | P.PN ---
Subjective Progress Note Date: 03/05/24 Principal diagnosis: Reason for follow-up is left fifth toe gangrene and diabetic foot infection Patient is a 58-year-old female with a past medical history significant for diabetes mellitus hypertension and asthma patient presenting to the hospital for evaluation of left fifth toe discoloration patient has been diagnosed with left fifth toe gangrene diabetic foot infection. On today's evaluation that is 03/05/2024, Patient is afebrile patient is currently on room air however is complaining of shortness of breath, the patient denies any chest pain or cough, the patient denies any nausea vomiting did not have any abdominal pain and no diarrhea denies pain to the left fifth toe. Patient white count has normalized to 9.74 creatinine is 1.53 Objective - Vital Signs Vital signs: Vital Signs Temp 98.0 F 03/05/24 12:06 Pulse 83 03/05/24 12:06 Resp 16 03/05/24 12:06 BP 143/74 03/05/24 12:06 Pulse Ox 98 03/05/24 12:06 FiO2 Intake & Output 03/04/24 03/05/24 03/05/24 18:59 06:59 18:59 Intake Total 590 Balance 590 Weight 83.915 kg 83.915 kg Intake: Oral 590 Other: Voiding Method Toilet Toilet # Voids 1 - Exam GENERAL DESCRIPTION: Middle-aged female lying in bed in no distress RESPIRATORY SYSTEM: Unlabored breathing , decreased breath sounds at bases HEART: S1 S2 regular rate and rhythm , ABDOMEN: Soft , no tenderness EXTREMITIES: Left fifth toe with some necrotic changes swelling redness to the dorsum of the foot - Labs CBC & Chem 7: 03/05/24 07:05 03/07/24 07:01 Labs: Abnormal Lab Results - Last 24 Hours (Table) 03/04/24 03/04/24 03/05/24 Range/Units 16:43 22:41 07:05 RBC 3.25 L (4.10-5.20) X 10*6/uL Hgb 8.4 L (12.0-15.0) g/dL Hct 27.8 L (37.2-46.3) % MCH 25.8 L (27.0-32.0) pg MCHC 30.2 L (32.0-37.0) g/dL RDW 15.0 H (11.5-14.5) % Chloride (98-107) mmol/L Carbon Dioxide (22-30) mmol/L BUN (7-17) mg/dL Creatinine (0.52-1.04) mg/dL Glucose (74-99) mg/dL POC Glucose (mg/dL) 342 H 277 H (70-110) mg/dL Calcium (8.4-10.2) mg/dL Iron (50-170) UG/DL % Saturation (12.00-45.00) Transferrin (204.0-354.0) mg/dL 03/05/24 03/05/24 03/05/24 Range/Units 07:05 07:40 12:09 RBC (4.10-5.20) X 10*6/uL Hgb (12.0-15.0) g/dL Hct (37.2-46.3) % MCH (27.0-32.0) pg MCHC (32.0-37.0) g/dL RDW (11.5-14.5) % Chloride 108 H (98-107) mmol/L Carbon Dioxide 21 L (22-30) mmol/L BUN 28 H (7-17) mg/dL Creatinine 1.53 H (0.52-1.04) mg/dL Glucose 280 H (74-99) mg/dL POC Glucose (mg/dL) 271 H 211 H (70-110) mg/dL Calcium 8.1 L (8.4-10.2) mg/dL Iron 20 L (50-170) UG/DL % Saturation 7.22 L (12.00-45.00) Transferrin 198.0 L (204.0-354.0) mg/dL Assessment and Plan (1) Gangrene of toe of left foot Current Visit: Yes Status: Acute Code(s): I96 - GANGRENE, NOT ELSEWHERE C LASSIFIED SNOMED Code(s): 95383155879790029 (2) Cellulitis of left foot Current Visit: Yes Status: Acute Code(s): L03.116 - CELLULITIS OF LEFT LOWER LIMB SNOMED Code(s): 07559587976357471 (3) Allergy to multiple antibiotics Current Visit: Yes Status: Acute Code(s): Z88.1 - ALLERGY STATUS TO OTHER ANTIBIOTIC AGENTS SNOMED Code(s): 838242613 (4) Diabetic infection of left foot Current Visit: Yes Status: Acute Code(s): E11.628 - TYPE 2 DIABETES MELLITUS WITH OTHER SKIN COMPLICATIONS; L08.9 - LOCAL INFECTION OF THE SKIN AND [place] BCUTANEOUS TISSUE, UNSP SNOMED Code(s): 72183550 Plan: 1patient presented hospital left fifth toe gangrene in this patient with underlying diabetes mellitus and diabetic foot infection we will need to cover for the polymicrobial ortiz associated with diabetic foot infection. Patient has not been on antibiotic in the recent past clinical notes resistant gram- negative pathogen 2-patient is currently waiting for vascular workup 3-patient did have normalization of the white count and will continue with vancomycin pharmacy to dose and Unasyn Dictation was produced using [employer] dictation software. please excuse any grammatical, word or spelling errors. Time with Patient: Less than 30
--- NOTE | 2024-03-07 22:09 | P.PN ---
Subjective Progress Note Date: 03/06/24 Principal diagnosis: Reason for follow-up is left fifth toe gangrene and diabetic foot infection Patient is a 58-year-old female with a past medical history significant for diabetes mellitus hypertension and asthma patient presenting to the hospital for evaluation of left fifth toe discoloration patient has been diagnosed with left fifth toe gangrene diabetic foot infection. On today's evaluation that is 03/06/2024, patient has been afebrile, patient is breathing comfortably and is currently on room air, patient denies having any significant cough no chest pain no complaining of some shortness of breath, patient denies nausea vomiting or diarrhea and no abdominal pain, patient denies pain to the left fifth toe with analysis of the patient has been refusing her antibiotics especially vancomycin No CBC was done today creatinine has improved to 1.12. Objective - Vital Signs Vital signs: Vital Signs Temp 98.4 F 03/06/24 13:29 Pulse 84 03/06/24 13:29 Resp 18 03/06/24 13:29 BP 178/83 03/06/24 13:29 Pulse Ox 98 03/06/24 13:29 FiO2 Intake & Output 03/05/24 03/06/24 03/06/24 18:59 06:59 18:59 Intake Total 360 590 Output Total 286 Balance 360 304 Weight 83.915 kg Intake: Oral 360 590 Output: Post Void Residual 286 Other: Voiding Method Toilet Toilet Toilet # Voids 4 2 - Exam GENERAL DESCRIPTION: Middle-aged female lying in bed in no distress RESPIRATORY SYSTEM: Unlabored breathing , decreased breath sounds at bases HEART: S1 S2 regular rate and rhythm , ABDOMEN: Soft , no tenderness EXTREMITIES: Left fifth toe with some necrotic changes swelling redness to the dorsum of the foot - Labs CBC & Chem 7: 03/05/24 07:05 03/07/24 07:01 Labs: Abnormal Lab Results - Last 24 Hours (Table) 03/05/24 03/05/24 03/05/24 Range/Units 07:05 17:30 20:33 BUN (7-17) mg/dL Creatinine (0.52-1.04) mg/dL Glucose (74-99) mg/dL POC Glucose (mg/dL) 256 H 262 H (70-110) mg/dL RBC Folate 993 H (280 - 791) ng/mL 03/06/24 03/06/24 03/06/24 Range/Units 04:03 06:59 07:08 BUN 19 H (7-17) mg/dL Creatinine 1.12 H (0.52-1.04) mg/dL Glucose 108 H (74-99) mg/dL POC Glucose (mg/dL) 119 H 122 H (70-110) mg/dL RBC Folate (280 - 791) ng/mL 03/06/24 Range/Units 12:06 BUN (7-17) mg/dL Creatinine (0.52-1.04) mg/dL Glucose (74-99) mg/dL POC Glucose (mg/dL) 277 H (70-110) mg/dL RBC Folate (280 - 791) ng/mL Assessment and Plan (1) Allergy to multiple antibiotics Current Visit: Yes Status: Acute Code(s): Z88.1 - ALLERGY STATUS TO OTHER ANTIBIOTIC AGENTS SNOMED Code(s): 931924059 (2) Cellulitis of left foot Current Visit: Yes Status: Acute Code(s): L03.116 - CELLULITIS OF LEFT LOWER LIMB SNOMED Code(s): 37879772644639251 (3) Diabetic infection of left foot Current Visit: Yes Status: Acute Code(s): E11.628 - TYPE 2 DIABETES MELLITUS WITH OTHER SKIN COMPLICATIONS; L08.9 - LOCAL INFECTION OF THE SKIN AND SUBCUTANEOUS TISSUE, UNSP SNOMED Code(s): 96177700 (4) Gangrene of toe of left foot Current Visit: Yes Status: Acute Code(s): I96 - GANGRENE, NOT ELSEWHERE CLASSIFIED SNOMED Code(s): 22499541709518279 Plan: 1patient [facility] left fifth toe gangrene in this patient with underlying diabetes mellitus and diabetic foot infection we will need to cover for the polymicrobial ortiz associated with diabetic foot infection. Patient has not been on antibiotic in the recent past clinical notes resistant gram- negative pathogen 2-patient is currently waiting for angiogram and possible angioplasty tomorrow 3-patient has been concerned about swelling and attributing it to the antibiotics it was explained to the patient in layman terms antibiotics are not causing any of the symptoms possibly benefit from diuretics advised to continue with both antibiotics to prevent any worsening infection all questions were answered continue vancomycin and Unasyn did have improvement in her kidney function Dictation was produced using [employer] software. please excuse any grammatical, word or spelling errors. Time with Patient: Less than 30
--- NOTE | 2024-03-07 22:12 | P.PN ---
Subjective Progress Note Date: 03/07/24 Principal diagnosis: Reason for follow-up is left fifth toe gangrene and diabetic foot infection Patient is a 58-year-old female with a past medical history significant for diabetes mellitus hypertension and asthma patient presenting to the hospital for evaluation of left fifth toe discoloration patient has been diagnosed with left fifth toe gangrene diabetic foot infection. Patient is status post selective left lower extremity angiogram balloon angioplasty and per cutaneous transluminal stent placement procedure completed on 03/07/2024 On today's evaluation that is 03/07/2024,the patient denies any fever or any chills, patient is complaining of some shortness of breath but no chest pain or cough no nausea no vomiting no abdominal pain or pain to the left lower extremity. No CBC was done today patient creatinine has improved to 1.07 no cultures done Objective - Vital Signs Vital signs: Vital Signs Temp 98.4 F 03/07/24 06:59 Pulse 86 03/07/24 06:59 Resp 16 03/07/24 06:59 BP 124/74 03/07/24 06:59 Pulse Ox 96 03/07/24 06:59 FiO2 Intake & Output 03/06/24 03/07/24 03/07/24 18:59 06:59 18:59 Intake Total 1770 100 125 Balance 1770 100 125 Intake: IV 125 Intake, IV Titration 1530 100 Amount Ampicillin-Sulbactam 3 gm 100 In Sodium Chloride 0.9% 100 ml @ 200 mls/hr IVPB Q8HR [facility] Rx#:[id number] Sodium Chloride 0.9% 1, 1530 000 ml @ 75 mls/hr IV . [id number] [facility] Rx#:[id number] Oral 240 Other: Voiding Method Toilet Toilet # Voids 3 1 - Exam GENERAL DESCRIPTION: Middle-aged female lying in bed in no distress RESPIRATORY SYSTEM: Unlabored breathing , decreased breath sounds at bases HEART: S1 S2 regular rate and rhythm , ABDOMEN: Soft , no tenderness EXTREMITIES: Left foot is currently dressed - Labs CBC & Chem 7: 03/05/24 07:05 03/07/24 07:01 Labs: Abnormal Lab Results - Last 24 Hours (Table) 03/06/24 03/06/24 03/07/24 Range/Units 17:15 20:10 05:44 BUN (7-17) mg/dL Creatinine (0.52-1.04) mg/dL Glucose (74-99) mg/dL POC Glucose (mg/dL) 242 H 261 H 155 H (70-110) mg/dL 03/07/24 03/07/24 Range/Units 07:01 07:04 BUN 18 H (7-17) mg/dL Creatinine 1.07 H (0.52-1.04) mg/dL Glucose 124 H (74-99) mg/dL POC Glucose (mg/dL) 133 H (70-110) mg/dL Assessment and Plan (1) Allergy to multiple antibiotics Current Visit: Yes Status: Acute Code(s): Z88.1 - ALLERGY STATUS TO OTHER ANTIBIOTIC AGENTS SNOMED Code(s): 919503834 (2) Cellulitis of left foot Current Visit: Yes Status: Acute Code(s): L03.116 - CELLULITIS OF LEFT LOWER LIMB SNOMED Code(s): 68840172236262840 (3) Diabetic infection of left foot Current Visit: Yes Status: Acute Code(s): E11.628 - TYPE 2 DIABETES MELLITUS WITH OTHER SKIN COMPLICATIONS; L08.9 - LOCAL INFECTION OF THE SKIN AND SUBCUTANEOUS TISSUE, UNSP SNOMED Code(s): 13962756 (4) Gangrene of toe of left foot Current Visit: Yes Status: Acute Code(s): I96 - GANGRENE, NOT ELSEWHERE CLASSIFIED SNOMED Code(s): 48846161621754676 Plan: 1patient [facility] left fifth toe gangrene in this patient with underlying diabetes mellitus and diabetic foot infection we will need to cover for the polymicrobial ortiz associated with diabetic foot infection. Patient has not been on antibiotic in the recent past clinical notes resistant gram- negative pathogen 2-patient is status post selective left lower extremity angiogram and an angioplasty completed on 03/07/2024 3-patient unfortunately has been refusing vancomycin despite explaining in layman terms importance of taking her antibiotics we will continue with the Unasyn and vancomycin as no reason to discontinue vancomycin or switch especially with improvement in her kidney function Dictation was produced using [employer] dictation software. please excuse any gra mmatical, word or spelling errors. Time with Patient: Less than 30
[2024-03-08 06:05] VITALS: RESP 16
[2024-03-08 06:11] LABS: Glucose,Whole Blood 93 mg/dL (70-110)
[2024-03-08] MEDS: ASPIRIN 81 MG PO SCH (08:26)
[2024-03-08] MEDS: CLOPIDOGREL 75 MG TAB PO SCH (08:26)
--- NOTE | 2024-03-08 11:02 | P.PN ---
Subjective Progress Note Date: 03/08/24 Principal diagnosis: Gangrene left fifth toe, peripheral arterial disease Patient is seen and examined today as a follow-up. Yesterday she underwent angiogram of the left lower extremity with percutaneous balloon angioplasty and stent placement of the left superficial femoral artery with percutaneous closure. She denies any pain, swelling or bleeding from the right groin access site. She denies any significant amount of pain of the left lower extremity. She still has some swelling to bilateral lower extremities. She continues to be afebrile. She continues to refuse IV vancomycin as recommended by infectious disease. She has been started on Plavix 75 mg daily. Primary medical physician Dr. Allen recommended a atorvastatin 40 mg at bedtime however patient refused that as well. Objective - Vital Signs Vital signs: Vital Signs Temp 98.0 F 03/08/24 08:18 Pulse 89 03/08/24 08:18 Resp 16 03/08/24 08:18 BP 146/80 03/08/24 08:18 Pulse Ox 94 L 03/08/24 08:18 FiO2 Intake & Output 03/07/24 03/08/24 03/08/24 18:59 06:59 18:59 Intake Total 243 Balance 243 Intake: IV 125 Oral 118 Other: Voiding Method Toilet Toilet # Voids 2 - Exam . General appearance: The patient is alert, oriented, appears in no acute distress. HET: Head is normocephalic and atraumatic. Pupils are equal and reactive. Neck: Supple. Abdomen: Soft, nondistended. Extremities: Bilateral lower extremity edema. Left foot with erythema on dorsal aspect of foot, fifth toe dry gangrene. Good capillary refill. Mu ltiphasic DP and PT Doppler signal. Neurological: No focal deficits. Strength and sensation are grossly intact. - Labs CBC & Chem 7: 03/05/24 07:05 03/07/24 07:01 Labs: Abnormal Lab Results - Last 24 Hours (Table) 03/07/24 03/07/24 Range/Units 17:34 19:42 POC Glucose (mg/dL) 254 H 163 H (70-110) mg/dL Assessment and Plan Assessment: 1. Diabetic foot ulcer 2. Dry gangrene left fifth toe 3. [place] 5 peripheral arterial disease status post percutaneous translum inal balloon angioplasty and stent placement of the left superficial femoral artery 4. Insulin-dependent diabetes mellitus 5. Shortness of breath 6. History of coronary artery disease status post stents 7. Hypertension 8. Asthma Plan: 1. Patient is status post percutaneous transluminal balloon angioplasty and stent placement of the left SFA 2. Carotid duplex ordered for right carotid bruit, less than 50% stenosis bilateral carotid bifurcations 3. Plavix 75 mg daily added, continue aspirin 81 mg and agree with statin 4. Consistent carbohydrate diet 5. Recommend strict glycemic control 6. Continue with recommendations from infectious disease 7. There is no urgency to left fifth toe amputation, can allow to demarcate and follow-up next week. This was discussed with patient. 8. The rest of medical management per primary medical team Thank you for this consultation, patient is cleared for discharge from vascular surgery. The impression and plan of care has been dictated as directed. Dr. Ledesma I performed a history and examination of this patient, discussed the same with the dictator. I agree with the dictator's note ,documented as a scribe. Any additional findings or plans will be noted.
[2024-03-08 11:34] LABS: Glucose,Whole Blood 175 mg/dL (70-110)
--- NOTE | 2024-03-08 12:35 | P.PN ---
Subjective Progress Note Date: 03/08/24 Principal diagnosis: Reason for follow-up is left fifth toe gangrene and diabetic foot infection Patient is a 58-year-old female with a past medical history significant for diabetes mellitus hypertension and asthma patient presenting to the hospital for evaluation of left fifth toe discoloration patient has been diagnosed with left fifth toe gangrene diabetic foot infection. Patient is status post selective left lower extremity angiogram balloon angioplasty and per cutaneous transluminal stent placement procedure completed on 03/07/2024 On today's evaluation that is 03/08/2024,the patient remains to be afebrile, the patient is breathing comfortably Currently on room air denies any chest pain shortness of breath or cough has been complaining of mostly swelling to the left lower extremity denies pain to the left fifth toe which seem to have dried out and there is no drainage. No lab draw today, her creatinine 1.07 as of yesterday Objective - Vital Signs Vital signs: Vital Signs Temp 98.0 F 03/08/24 08:18 Pulse 89 03/08/24 08:18 Resp 16 03/08/24 08:18 BP 146/80 03/08/24 08:18 Pulse Ox 94 L 03/08/24 08:18 FiO2 Intake & Output 03/07/24 03/08/24 03/08/24 18:59 06:59 18:59 Intake Total 243 Balance 243 Intake: IV 125 Oral 118 Other: Voiding Method Toilet Toilet # Voids 2 - Exam GENERAL DESCRIPTION: Middle-aged female lying in bed in no distress RESPIRATORY SYSTEM: Unlabored breathing , decreased breath sounds at bases HEART: S1 S2 regular rate and rhythm , ABDOMEN: Soft , no tenderness EXTREMITIES: Left fifth toe has dried out redness has improved no drainage - Labs CBC & Chem 7: 03/05/24 07:05 03/07/24 07:01 Labs: Abnormal Lab Results - Last 24 Hours (Table) 03/07/24 03/07/24 Range/Units 17:34 19:42 POC Glucose (mg/dL) 254 H 163 H (70-110) mg/dL Assessment and Plan (1) Allergy to multiple antibiotics Current Visit: Yes Status: Acute Code(s): Z88.1 - ALLERGY STATUS TO OTHER ANTIBIOTIC AGENTS SNOMED Code(s): 650807600 (2) Cellulitis of left foot Current Visit: Yes Status: Acute Code(s): L03.116 - CELLULITIS OF LEFT LOWER LIMB SNOMED Code(s): 68695507267534575 (3) Diabetic infection of left foot Current Visit: Yes Status: Acute Code(s): E11.628 - TYPE 2 DIABETES MELLITUS WITH OTHER SKIN COMPLICATIONS; L08.9 - LOCAL INFECTION OF THE SKIN AND SUBCUTANEOUS TISSUE, UNSP SNOMED Code(s): 85335794 (4) Gangrene of toe of left foot Current Visit: Yes Status: Acute Code(s): I96 - GANGRENE, NOT ELSEWHERE CLASSIFIED SNOMED Code(s): 67611137932665236 Plan: 1patient [facility] left fifth toe gangrene in this patient with underlying diabetes mellitus and diabetic foot infection we will need to cover for the polymicrobial ortiz associated with diabetic foot infection. Patient has not been on antibiotic in the recent past clinical notes resistant gram- negative pathogen 2-patient is status post selective left lower extremity angiogram and an angioplasty completed on 03/07/2024, patient has been cleared for discharge by vascular surgery apparently outpatient outpatient follow-up and to discussed fifth toe amputation in the outpatient setting she is scheduled to see the surgeon discussed fifth toe amputation in the outpatient setting she is scheduled to see the surgeon Monday 3-we will suggest a 10-day course of oral Augmentin on discharge and discontinue vancomycin discussed with the admitting physician Dictation was produced using [employer] dictation software. please excuse any grammatical, word or spelling errors. Time with Patient: Less than 30
[2024-03-08 12:56] VITALS: BP 147/58; PULSE 80; TEMP 98.3
--- NOTE | 2024-03-08 13:11 | P.DS ---
Providers Date of admission: 03/03/24 21:13 Expected date of discharge: 03/08/24 Attending physician: Tyler Allen Consults: 03/03/24 21:13 Consult Physician Routine Consulting Provider: Dylon Walter Consult Reason/Comments: Left diabetic foot infection Do you want consulting provider notified?: Yes, Notify in am Consult Physician Routine Consulting Provider: Nandini Flynn Consult Reason/Comments: Diabetic foot infection Do you want consulting provider notified?: Yes, Notify in am Primary care physician: [facility] Course: Patient is a 58-year-old female with known history of coronary disease status post stent placement, diabetes type 2 insulin-dependent, hypertension, asthma and history of retinitis pigmentosa, anxiety presents to ER with complaints of left fifth toe discoloration. Patient states that she has been having worsening discoloration and and chills on and off for the past 4 to 5 days. Denies any recent trauma. Patient was initially presented to [facility] in the hospital and subsequently transferred to [facility] for further management. She was also having subjective fevers at home. She was given antibiotics prior to transfer. Left lower extremity vascular study showed mild peripheral vascular disease on the left and limited evaluation of the right with noncompressible vessels on the right. Laboratory data showed WBC 12.1 hemoglobin 9.5 and platelets 364 Sodium 140 potassium 4.3 chloride 107 bicarbonate 24 BUN 31 creatinine 1.36 and blood sugar 135 and he is A1c 9.6 liver enzymes are not elevated. 03/05/2024 Patient is currently sitting in the chair. Awake active alert intact significant no complaints of chest pain or shortness of breath. No fever no chills. On room air. No cough or sputum production. Patient had CT angiogram of the abdomen aorta with runoff showed heavily calcified bilateral lower extremity arterial vasculature involving the superficial femoral arteries and extending inferiorly to the popliteal artery to the feet is limited due to severe atherosclerotic plaque. Pulmonary vascular congestion and trace bilateral pleural effusions correlate serum BNP for CHF. Diffuse airspace opacities could also be sequela of heart failure. Arterial enhancing lesion in the left ovary which is asymmetric. Laboratory data showed WBC 9.7 hemoglobin 8.4 and platelets 335 iron profile is consistent with deficiency. B12 331 Otherwise renal function worsened with creatinine level 1.53 and BUN 28. Patient is being continued on antibiotics Unasyn and vancomycin. ID and vascular surgery is on board. Current medications reviewed. 03/06/2024 Patient is seen in follow-up today with infectious disease and vascular surgery following. Patient scheduled to undergo abdominal angiogram with vascular surgery tomorrow. Patient reporting feeling bloated with swelling and lower extremity swelling and reports she feels it is secondary to antibiotics. Patient also had been on IV hydration which has been discontinued as patient is eating and drinking. Patient insisted on receiving a dose of Lasix for her continued swelling. Patient reports she cannot afford to gain weight. Patient is afebrile and denies chest pain or palpitations. Patient has been tolerating diet with no reported nausea or vomiting. Encouraged to increase activity as tolerated. March 07, 2024: Saw the patient this morning. NPO. Pending surgery this afternoon. Daughter at the bedside. Had multiple questions. Answered at length. Patient not been taking vancomycin counseled about renal function. ID was informed yesterday. Patient had smoked questions specific to the surgery. Will defer that to vascular. Later this afternoon, patient underwent right iliofemoral angiogram with runoff. Patient underwent PTCA of the left superficial femoral artery and stent placement. March 08, 2024: Patient does complain of slight burning to sensation on around the left heel. Did ambulate in the hallway. Lipitor [address] Ledesma patient to be discharged on aspirin and Plavix. Expecting the left toe dry gangrene l demarcate and either autoamputation or may need surgical amputation. Discussed with ID. 10 days of Augmentin. Discussed with patient. Questions answered. Discussion and discharge planning more than 35 minutes On examination: VITAL SIGNS: 98.3, 80, 16, 147/58, 95% room air GENERAL APPEARANCE: BMI 31.8, comfortable some facial hair HEENT: Normal external appearance of nose and ear. Oral cavity normal EYES: Pupils equal. Conjunctiva normal. NECK: JVD not raised. Mass not palpable. RESPIRATORY: Respiratory effort normal. Lungs clear to auscultation. CARDIOVASCULAR: First and second sounds normal. No edema. ABDOMEN: Soft. Liver and spleen not palpable. No tenderness. No mass palpable. PSYCHIATRY: Alert and oriented x3. Mood and affect normal. EXTREMITIES: Left leg fifth toe gangrene three quarters distally. Tenderness with some surrounding redness INVESTIGATIONS, reviewed in the clinical context: March 07: Sodium 139 potassium 3.9 BUN 18 creatinine 1.07 February 6: Creatinine 1.36 CT angiogram: Heavily calcified bilateral lower extremity arterial vasculature involving the superficial femoral arteries. Extending inferiorly. Extending into the femoral artery then is limited due to severe atherosclerotic plaque. Multiple areas of high-grade stenosis. Assessment and plan: -Acute left fifth toe dry gangrene and diabetic foot infection, secondary to diabetes and PAD Hide hoping for autoamputation or building surgical amputation. IV Unasyn. IV vancomycin.-Being followed by ID Being discharged on Augmentin for 10 days Follow-up with Dr. Ledesma outpatient next week -Severe peripheral arterial disease As per CT angiogram. Aspirin and Plavix. 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 With underlying CKD stage III Vancomycin has been held. Follow labs -Iron deficiency anemia -Coronary disease with history of stent placement Plavix. Aspirin-resumed. Lipitor added -Essential hypertension Lopressor 50 mg twice daily. 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 -Obesity with a BMI of 31.8 Weight loss measures -Anxiety -Full code Disposition: Home Plan - Discharge Summary Discharge Rx Participant: Yes New Discharge Prescriptions: New Amoxic-Pot Clav 875-125Mg [Augmentin 875-125] 1 tab PO BID 10 Days #20 tab Clopidogrel [Plavix] 75 mg PO DAILY #30 tab Atorvastatin [Lipitor] 40 mg PO HS #30 tab Acetaminophen Tab [Tylenol] 650 mg PO Q6HR PRN tab PRN Reason: Mild Pain Or Fever > 100.5 Continue Lisinopril/Hydrochlorothiazide [Zestoretic 20-25] 1 tab PO DAILY Albuterol Inhaler [Ventolin Hfa Inhaler] 2 puff INHALATION RT-Q6H PRN PRN Reason: Shortness Of Breath Aspirin EC [Ecotrin Low Dose] 81 mg PO DAILY Fluticasone Nasal [place] [Flonase Nasal [place]] 1 spray EA NOSTRIL DAILY PRN PRN Reason: Allergy Symptoms Metoprolol Tartrate [Lopressor] 50 mg PO BID Cetirizine HCl [Zyrtec] 10 mg PO DAILY PRN PRN Reason: Allergy Symptoms Insulin Regular [humuLIN R] 20 - 40 units SQ DAILY Insulin Glargine,Hum.rec.anlog [Lantus Solostar Pen] 20 - 40 units SQ HS Discharge Medication List Albuterol Inhaler [Ventolin Hfa Inhaler] 2 puff INHALATION RT-Q6H PRN 06/23/15 [History] Lisinopril/Hydrochlorothiazide [Zestoretic 20-25] 1 tab PO DAILY 06/23/15 [History] Aspirin EC [Ecotrin Low Dose] 81 mg PO DAILY 03/03/24 [History] Cetirizine HCl [Zyrtec] 10 mg PO DAILY PRN 03/03/24 [History] Fluticasone Nasal [place] [Flonase Nasal [place]] 1 spray EA NOSTRIL DAILY PRN 03/03/24 [History] Insulin Glargine,Hum.rec.anlog [Lantus Solostar Pen] 20 - 40 units SQ HS 03/03/24 [History] Insulin Regular [humuLIN R] 20 - 40 units SQ DAILY 03/03/24 [History] Metoprolol Tartrate [Lopressor] 50 mg PO BID 03/03/24 [History] Clopidogrel [Plavix] 75 mg PO DAILY #30 tab 03/07/24 [Rx] Acetaminophen Tab [Tylenol] 650 mg PO Q6HR PRN tab 03/08/24 [Rx] Amoxic-Pot Clav 875-125Mg [Augmentin 875-125] 1 tab PO BID 10 Days #20 tab 03/08 [Rx] Atorvastatin [Lipitor] 40 mg PO HS #30 tab 03/08/24 [Rx] Follow up Appointment(s)/Referral(s): Dylon Cortes MD [Primary Care Provider] - 1-2 days Jo Ledesma DO [STAFF PHYSICIAN] - 1 Week (Call office on Monday to make appointment for March [address] Ledesma for outpatient follow-up)
[2024-03-08 13:13] LABS: Basophils % (A) 0 %; Eosinophils # (A) 0.2 k/uL (0-0.7); Eosinophils % (A) 2 %; HCT 28.2 % (34.0-46.0); HGB 8.3 gm/dL (11.4-16.0); Hypochromasia Moderate; Lymphocytes # (A) 1.2 k/uL (1.0-4.8); Lymphocytes % (A) 13 %; MCH 25.8 pg (25.0-35.0); MCHC 29.4 g/dL (31.0-37.0); MCV 87.8 fL (80.0-100.0); Mean Platelet Volume 7.5; Monocytes # (A) 0.5 k/uL (0-1.0); Monocytes % (A) 5 %; Neutrophils # (A) 7.2 k/uL (1.3-7.7); Neutrophils % (A) 79 %; Platelet Count 383 k/uL (150-450); RBC 3.21 m/uL (3.80-5.40); RDW 14.9 % (11.5-15.5); WBC 9.1 k/uL (3.8-10.6)
[2024-03-08 13:22] LABS: African American GFR (CKD) 59 (>60 ml/min/1.73 sqM); Anion Gap 7 mmol/L; Blood Urea Nitrogen 22 mg/dL (7-17); Calcium 8.8 mg/dL (8.4-10.2); Carbon Dioxide 26 mmol/L (22-30); Chloride 105 mmol/L (98-107); Glucose 141 mg/dL (74-99); Non-African American GFR(CKD) 51 (>60 ml/min/1.73 sqM); Sodium 138 mmol/L (137-145)
--- NOTE | 2024-03-11 13:22 | IR ---
EXAMINATION TYPE: IR stent intravas non coronary Intraoperative/procedural fluoroscopic services were provided. CLINICAL INDICATION:Female, 58 years old with history of left leg pain, 14.8min fluoro, 41.4Gycm2; , [facility] Total fluoroscopy time is 14.8 min. DAP: 14.4 Gycm2 Please see the operative/procedural note for further details.
== END 2024-03-08 16:15 | disposition home or self-care (01) | DRG 182 ==
LOC: EC 18:10 → 5NMEDONC 21:13 → 3SCARD 03-07 16:36
PROVIDERS: ADMIT Hospitalist; ATTEND Hospitalist
PROC: B41G1ZZ Fluoroscopy of Left Lower Extremity Arteries using Low Osmolar Contrast (ICD-10-PCS; principal; 2024-03-07 11:15)
PROC: 04HK3DZ Insertion of Intraluminal Device into Right Femoral Artery, Percutaneous Approach (ICD-10-PCS; principal; 2024-03-07 11:15)
PROC: B41F1ZZ Fluoroscopy of Right Lower Extremity Arteries using Low Osmolar Contrast (ICD-10-PCS; principal; 2024-03-07 11:15)
PROC: 047K3D1 Dilation of Right Femoral Artery with Intraluminal Device, using Drug-Coated Balloon, Percutaneous Approach (ICD-10-PCS; principal; 2024-03-07 11:15)
DX: E11.52 Type 2 diabetes mellitus with diabetic peripheral angiopathy with gangrene (principal); E11.621 Type 2 diabetes mellitus with foot ulcer; E11.628 Type 2 diabetes mellitus with other skin complications; E11.42 Type 2 diabetes mellitus with diabetic polyneuropathy; E11.65 Type 2 diabetes mellitus with hyperglycemia; Z79.4 Long term (current) use of insulin; E66.9 Obesity, unspecified; Z68.31 Body mass index [BMI] 31.0-31.9, adult; F41.9 Anxiety disorder, unspecified; I13.10 Hypertensive heart and chronic kidney disease without heart failure, with stage 1 through stage 4 chronic kidney disease, or unspecified chronic kidney disease; H35.52 Pigmentary retinal dystrophy; N18.30 Chronic kidney disease, stage 3 unspecified; E11.22 Type 2 diabetes mellitus with diabetic chronic kidney disease; L03.116 Cellulitis of left lower limb; L97.509 Non-pressure chronic ulcer of other part of unspecified foot with unspecified severity; N17.9 Acute kidney failure, unspecified; I25.10 Atherosclerotic heart disease of native coronary artery without angina pectoris; I65.23 Occlusion and stenosis of bilateral carotid arteries; J45.20 Mild intermittent asthma, uncomplicated; Z71.3 Dietary counseling and surveillance; Z28.310 Unvaccinated for COVID-19; Z95.5 Presence of coronary angioplasty implant and graft; D50.9 Iron deficiency anemia, unspecified; Z79.02 Long term (current) use of antithrombotics/antiplatelets; Z79.899 Other long term (current) drug therapy; Z88.1 Allergy status to other antibiotic agents; Z88.2 Allergy status to sulfonamides; Z79.82 Long term (current) use of aspirin; Z87.891 Personal history of nicotine dependence
CPT/HCPCS: 37226; 71046; 75635; 75710; 76937; 80048; 80053; 82607; 82747; 83036; 83540; 83550; 83880; 85025; 93880; 93923; 96361; 96365; 96366; 96367; 99285

== ENCOUNTER 2024-03-28 07:37 | Day surgery (SDC) | payer OTHER ==
[2024-03-26 16:34] VITALS: BMI 31.7
[~2024-03-28 07:37] MED LIST: DEXAMETHASONE SOD PHOSPHATE 4 MG/ML 1 ML VIAL IV ONE; HYDROmorphone 0.5 MG/0.5 ML SYRINGE IVP PRN; LACTATED RINGERS 1,000 ML IV SCH; LIDOCAINE 1% (10MG/ML) FOR IV START INTRADERMA PRN; MIDAZOLAM 2 MG/2 ML VIAL IV PRN; ONDANSETRON 4 MG/2 ML VIAL IVP ONE; fentaNYL (PF) 50 MCG/ML 2 ML AMP IVP PRN
[2024-03-28] MEDS: LACTATED RINGERS 1,000 ML IV ONE (08:00)
[2024-03-28 08:17] LABS: Glucose,Whole Blood 257 mg/dL (70-110)
[2024-03-28] MEDS: ONDANSETRON 4 MG/2 ML VIAL IVP ONE ×2 (08:34→09:38)
[2024-03-28] MEDS: INSULIN ASPART (NovoLOG) 100 UNIT/ML VIAL SQ ONE (08:34)
[2024-03-28] MEDS: MIDAZOLAM 2 MG/2 ML VIAL IVP ONE (08:34)
[2024-03-28] MEDS: LIDOCAINE 1% INJ 10MG/ML (20 ML MDV) SQ ONE (08:37)
[2024-03-28] MEDS ORDERED: PROPOFOL 10 MG/ML 20 ML VIAL IV ONE (08:37)
[2024-03-28] MEDS ORDERED: KETAMINE HCL IN 0.9 % NACL 50 MG/5 ML SYRINGE ONE (08:37)
[2024-03-28] MEDS ORDERED: fentaNYL (PF) 50 MCG/ML 2 ML AMP ONE (08:37)
--- NOTE | 2024-03-28 09:16 | P.OP ---
Date of Procedure: 03/28/24 Description of Procedure: SURGEON: oJ Ledesma DO [employer] PLANNING: none PREOPERATIVE DIAGNOSIS: Left fifth toe gangrene. POSTOPERATIVE DIAGNOSIS: Same. OPERATION: Left fifth toe ray amputation. ANESTHESIA: Sedation with local ESTIMATED BLOOD LOSS: 5 cc SPECIMENS REMOVED: Left fifth toe for disposal COMPLICATIONS: None DESCRIPTION OF PROCEDURE: This patient was brought to the operating room, and given local and IV sedation. The operative foot was prepped and draped in sterile manner. An incision was made at the base of the fifth toe deep into skin and fascia on plantar and dorsal aspect until we reached the head of the metatarsal bone. The head of the metatarsal was from the fifth toe. The tendons were divided in plantar and dorsal aspects. The fifth toe was removed. The lateral portion of the wound was extended and the metatarsal head was transected with a bone cutter. The base of the wound looked clean, and the wound was copiously irrigated with saline. At the medial portion at the web of the fourth and fifth toe there was some degree of macerated tissue. It did not look necrotic nor infected therefore at this time it was debrided with a curette. Due to the size of the wound necessary for amputation of devitalized tissue, full reapproximation was unobtainable. The lateral portion of the wound was reapproximated interrupted sutures of 3-0 Vicryl followed by 2-0 nylon in interrupted fashion. Hemostasis was well controlled and wet-to-dry dressing was applied. The patient tolerated the procedure well. Plan - Discharge Summary Discharge Rx Participant: No New Discharge Prescriptions: No Action Lisinopril/Hydrochlorothiazide [Zestoretic 20-25] 1 tab PO QAM Aspirin EC [Ecotrin Low Dose] 81 mg PO QAM Fluticasone Nasal [place] [Flonase Nasal [place]] 1 spray EA NOSTRIL DAILY PRN PRN Reason: Allergy Symptoms Metoprolol Tartrate [Lopressor] 50 mg PO BID Cetirizine HCl [Zyrtec] 10 mg PO DAILY PRN PRN Reason: Allergy Symptoms Insulin Regular [humuLIN R] 40 units SQ QAM Insulin Glargine,Hum.rec.anlog [Lantus Solostar Pen] 40 units SQ HS Acetaminophen Tab [Tylenol] 650 mg PO Q6HR PRN tab PRN Reason: Mild Pain Or Fever > 100.5 Clopidogrel [Plavix] 75 mg PO QAM Discharge Medication List Lisinopril/Hydrochlorothiazide [Zestoretic 20-25] 1 tab PO QAM 06/23/15 [History] Aspirin EC [Ecotrin Low Dose] 81 mg PO QAM 03/03/24 [History] Cetirizine HCl [Zyrtec] 10 mg PO DAILY PRN 03/03/24 [History] Fluticasone Nasal [place] [Flonase Nasal [place]] 1 spray EA NOSTRIL DAILY PRN 03/03/24 [History] Insulin Glargine,Hum.rec.anlog [Lantus Solostar Pen] 40 units SQ HS 03/03/24 [History] Insulin Regular [humuLIN R] 40 units SQ QAM 03/03/24 [History] Metoprolol Tartrate [Lopressor] 50 mg PO BID 03/03/24 [History] Acetaminophen Tab [Tylenol] 650 mg PO Q6HR PRN tab 03/08/24 [Rx] Clopidogrel [Plavix] 75 mg PO QAM 03/26/24 [History] Follow up Appointment(s)/Referral(s): Jo Ledesma DO [STAFF PHYSICIAN] - 1 Week Activity/Diet/Wound Care/Special Instructions: Resume regular diet. Resume home medications including antiplatelet medications. Resume activity, heel touch weightbearing for left lower extremity. Wear postoperative shoe. Do not submerge or wet the wound. May shower keeping the wound bed dry. Daily wet-to-dry dressings with saline gauze Discharge Disposition: HOME WITH HOME HEALTH SERVICES
[2024-03-28 09:18] LABS: Glucose,Whole Blood 247 mg/dL (70-110)
[2024-03-28 09:43] VITALS: TEMP 97
[2024-03-28 10:34] VITALS: BP 155/53; PULSE 74; RESP 20
[2024-03-28] MEDS ORDERED: INSULIN ASPART (NovoLOG) 100 UNIT/ML VIAL SQ SCH (12:30)
== END 2024-03-28 10:33 | disposition home health service (06) ==
LOC: OR 07:37
PROVIDERS: ATTEND Surgery
DX: I70.262 Atherosclerosis of native arteries of extremities with gangrene, left leg (principal); Z79.02 Long term (current) use of antithrombotics/antiplatelets; Z79.82 Long term (current) use of aspirin
CPT/HCPCS: 11043; J2250; J0690; J2405; J2001; J3010; J2704

== ENCOUNTER 2024-04-20 15:47 | Inpatient (IN) | payer OTHER ==
--- NOTE | 2024-04-20 16:58 | ED ---
General Adult HPI - General Chief complaint: Extremity Injury, Lower Stated complaint: foot infection Time Seen by Provider: 04/20/24 16:49 Source: patient, RN notes reviewed, old records reviewed Mode of arrival: ambulatory Limitations: no limitations - History of Present Illness Initial comments: 58-year-old female with a past medical history significant for diabetes status post left fifth toe amputation on 03/28/[address] Ledesma presenting to the ED with complaints of left fifth toe infection. Patient states has had pain in the area of the left fifth toe however reports has not necessarily been worsening since amputation. Patient reports she completed a 10-day course of Augmentin yesterday and was going to get more antibiotics as she reported she was concerned this was infected however was prompted to present to the ED for further evaluation due to to how her wound looked. Denies fever or chills. No chest pain or shortness of breath. No other complaints at this time. - Related Data Home Medications Medication Instructions Recorded Confirmed Lisinopril/Hydrochlorothiazide 1 tab PO QAM 06/23/15 03/28/24 [Zestoretic 20-25] Aspirin EC [Ecotrin Low Dose] 81 mg PO QAM 03/03/24 03/28/24 Cetirizine HCl [Zyrtec] 10 mg PO DAILY PRN 03/03/24 03/28/24 Fluticasone Nasal [place] [Flonase 1 spray EA NOSTRIL DAILY PRN 03/03/24 03/28/24 Nasal [place]] Insulin Glargine,Hum.rec.anlog 40 units SQ HS 03/03/24 03/28/24 [Lantus Solostar Pen] Insulin Regular [humuLIN R] 40 units SQ QAM 03/03/24 03/28/24 Metoprolol Tartrate [Lopressor] 50 mg PO BID 03/03/24 03/28/24 Clopidogrel [Plavix] 75 mg PO QAM 03/26/24 03/28/24 Previous Rx's Medication Instructions Recorded Acetaminophen Tab [Tylenol] 650 mg PO Q6HR PRN tab 03/08/24 Allergies Allergy/AdvReac Type Severity Reaction Status Date / Time ciprofloxacin [From Cipro] AdvReac Nausea & Verified 04/20/24 16:04 Vomiting ciprofloxacin HCl AdvReac Nausea & Verified 04/20/24 16:04 [From Cipro] Vomiting clindamycin AdvReac Nausea & Verified 04/20/24 16:04 Vomiting sulfamethoxazole AdvReac Nausea & Verified 04/20/24 16:04 [From Bactrim] Vomiting trimethoprim [From Bactrim] AdvReac Nausea & Verified 04/20/24 16:04 Vomiting Review of Systems ROS Statement: Those systems with pertinent positive or pertinent negative responses have been documented in the HPI. ROS Other: All systems not noted in ROS Statement are negative. Past Medical History Past Medical History: Asthma, Blood Disorder, Coronary Artery Disease (CAD), Diabetes Mellitus, Eye Disorder, GERD/Reflux, Hyperlipidemia, Hypertension, Myocardial Infarction ([place]), Pneumonia, Skin Disorder, Vascular Disorder Additional Past Medical History / Comment(s): Type II diabetic IDDM. retinitis pigmentosa (losing peripheral vision), Hx of cellulitis lt foot March 03, 2024. Circulation issues to lt leg-recent February 2024. IBD. Recent hospitalization @[facility] February-pt states she was anemic. States Hgb at discharge was 8.4. Pt states she had re-draw last week @[facility] out pt lab and it was Hgb was 9.6. She states she was put on Multivitamin. Last Myocardial Infarction Date:: 05/2015 History of Any Multi-Drug Resistant Organisms: None Reported Past Surgical History: Heart Catheterization, Heart Catheterization With Stent Additional Past Surgical History / Comment(s): boil under armpit (2000) Cardiac stent x3. Stent to lt leg March 07, 2024. Past Anesthesia/Blood Transfusion Reactions: No Reported Reaction Additional Past Anesthesia/Blood Transfusion Reaction / Comment(s): No hx of blood transfusion. Date of Last Stent Placement:: 05/30/2015 Past Psychological History: Anxiety Smoking Status: Former smoker Past Alcohol Use History: None Reported Past Drug Use History: None Reported - Past Family History Mother Family Medical History: Hypertension Additional Family Medical History / Comment(s): borderline diabetic Father Family Medical History: Cancer Additional Family Medical History / Comment(s): leukemia, stents placed, at 81 years old General Exam - General Exam Comments Initial Comments: Visual Physical Exam Vital signs reviewed General: Well-appearing, nontoxic, no acute distress. Head: Normocephalic, atraumatic Eyes: PERRLA, EOMI ENT: Airway patent Chest: Nonlabored breathing Skin: No visual rash, normal skin tone Neuro: Alert and oriented 3 Musculoskeletal: Left fifth toe amputation with purulent drainage. Limitations: no limitations General appearance: alert, in no apparent distress Neck exam: Present: normal inspection Respiratory exam: Present: normal lung sounds bilaterally Cardiovascular Exam: Present: regular rate GI/Abdominal exam: Present: soft, normal bowel sounds. Absent: distended, tenderness, guarding, rebound, rigid Extremities exam: Present: other (Left foot shows purulent drainage near amputation site of left fifth toe with findings concerning for gangrene.) Neurological exam: Present: alert, oriented X3 Course Vital Signs 04/20/24 16:01 Temperature 98.3 F Pulse Rate 83 Respiratory 16 Rate Blood Pressure 164/68 O2 Sat by Pulse 97 Oximetry Medical Decision Making - Medical Decision Making Was pt. sent in by a medical professional or institution ([facility] Gordillo, [employer], urgent care, hospital, or long term...) When possible be specific @ -No Did you speak to anyone other than the patient for history (EMS, parent, family, police, friend...)? What history was obtained from this source @ -No Did you review nursing and triage notes (agree or disagree)? Why? @ -I reviewed and agree with nursing and triage notes Were old charts reviewed (outside hosp., previous admission, EMS record, old EKG, old radiological studies, urgent care reports/EKG's, long term records)? Report findings @ -No old charts were reviewed Differential Diagnosis (chest pain, altered mental status, abdominal pain women, abdominal pain men, vaginal bleeding, weakness, fever, dyspnea, syncope, headache, dizziness, GI bleed, back pain, seizure, CVA, palpatations, mental health, musculoskeletal)? @ -Differential Musculoskeletal Muscular strain, contusion, ligament sprain, fracture, arthritis, septic arthritis, bursitis, cellulitis, muscle spasm, nerve compression, DVT, arterial occlusion, herpes zoster, electrolyte abnormality, tumor.... This is not meant to be in all inclusive list EKG interpreted by me (3pts min.). @ -As above X-rays interpreted by me (1pt min.). @ -X-ray interpreted by me showing findings of air possibly related to recent operation with gas forming infection difficult to exclude at this time. CT interpreted by me (1pt min.). @ -None done U/S interpreted by me (1pt. min.). @ -None done What testing was considered but not performed or refused? (CT, X-rays, U/S, labs)? Why? @ -None What meds were considered but not given or refused? Why? @ -None Did you discuss the management of the patient with other professionals (professionals i.e. Dr., PA, [employer], lab, RT, psych nurse, addiction social worker, manager scheduling, teacher, military source operations officer, case management coordinator)? Give summary @ -Case discussed with Dr. Haines of vascular surgery has no further recommendations at this time. Case discussed with Dr. Allen, who accepts admission. Was smoking cessation discussed for >3mins.? @ -No Was critical care preformed (if so, how long)? @ -No Were there social determinants of health that impacted care today? How? (Homelessness, low income, unemployed, alcoholism, drug addiction, transportation, low edu. Level, literacy, decrease access to med. care, senior care, rehab)? @ -No Was there de-escalation of care discussed even if they declined (Discuss DNR or withdrawal of care, Hospice)? DNR status @ -No What co-morbidities impacted this encounter? (DM, HTN, Smoking, COPD, CAD, Cancer, CVA, ARF, Chemo, Hep., AIDS, mental health diagnosis, sleep apnea, morbid obesity)? @ -Diabetes Was patient admitted / discharged? Hospital course, mention meds given and route, prescriptions, significant lab abnormalities, going to OR and other pertinent info. @ -Admission 58-year-old female with past medical history significant for diabetes presenting to the ED with concerns of left foot infection. Had amputation by Dr. Ledesma on 0 03/28/24. Reports she finished a course of Augmentin yesterday however followed up with wound care and was advised to present to the ED for further evaluation. On examination there are findings of purulent discharge appearing concerning for gangrene. Laboratory studies reviewed. Labs show an elevated white blood cell count 11.8, elevated CRP at 5.2. Wound and blood cultures obtained. Patient started on IV ceftriaxone and vancomycin. Patient will be admitted on IV antibiotics with consult to infectious disease and vascular surgery. Undiagnosed new problem with uncertain prognosis? @ -No Drug Therapy requiring intensive monitoring for toxicity (Heparin, Nitro, Insulin, Cardizem)? @ -No Were any procedures done? @ -No Diagnosis/symptom? @ -Left foot infection Acute, or Chronic, or Acute on Chronic? @ -Acute Uncomplicated (without systemic symptoms) or Complicated (systemic symptoms)? @ -Complicated Side effects of treatment? @ -No Exacerbation, Progression, or Severe Exacerbation? @ -No Poses a threat to life or bodily function? How? (Chest pain, [place], [place], pneumonia, PE, COPD, DKA, ARF, appy, cholecystitis, CVA, Diverticulitis, Homicidal, Suicidal, threat to staff... and all critical care pts) @ -Possibly - Lab Data Result diagrams: 04/20/24 18:09 04/20/24 18:09 Lab Results 04/20/24 04/20/24 04/20/24 Range/Units 18:09 18:09 18:09 WBC 11.8 H (3.8-10.6) k/uL RBC 4.02 (3.80-5.40) m/uL Hgb 10.7 L (11.4-16.0) gm/dL Hct 34.0 (34.0-46.0) % MCV 84.5 (80.0-100.0) fL MCH 26.5 (25.0-35.0) pg MCHC 31.4 (31.0-37.0) g/dL RDW 14.2 (11.5-15.5) % Plt Count 437 (150-450) k/uL MPV 8.0 Neutrophils % 83 % Lymphocytes % 11 % Monocytes % 4 % Eosinophils % 1 % Basophils % 0 % Neutrophils # 9.8 H (1.3-7.7) k/uL Lymphocytes # 1.3 (1.0-4.8) k/uL Monocytes # 0.5 (0-1.0) k/uL Eosinophils # 0.1 (0-0.7) k/uL Basophils # 0.0 (0-0.2) k/uL Hypochromasia Moderate Sodium 132 L (137-145) mmol/L Potassium 5.3 H (3.5-5.1) mmol/L Chloride 97 L (98-107) mmol/L Carbon Dioxide 25 (22-30) mmol/L Anion Gap 10 mmol/L BUN 26 H (7-17) mg/dL Creatinine 1.00 (0.52-1.04) mg/dL Est GFR (CKD-EPI)AfAm 71 (>60 ml/min/1.73 sqM) Est GFR (CKD-EPI)NonAf 62 (>60 ml/min/1.73 sqM) Glucose 385 H (74-99) mg/dL Plasma Lactic Acid Jose Manuel 1.6 (0.7-2.0) mmol/L Calcium 9.9 (8.4-10.2) mg/dL Total Bilirubin 0.5 (0.2-1.3) mg/dL AST 28 (14-36) U/L ALT 21 (4-34) U/L Alkaline Phosphatase 104 (38-126) U/L C-Reactive Protein 5.2 H (<1.0) mg/dL Total Protein 7.2 (6.3-8.2) g/dL Albumin 4.0 (3.5-5.0) g/dL Disposition Clinical Impression: Left foot infection Disposition: ADMITTED IP TO THIS HOSP Condition: Fair Referrals: Dylon Cortes MD [Primary Care Provider] - 1-2 days Time of Disposition: 19:30
--- NOTE | 2024-04-20 17:24 | XR ---
EXAMINATION TYPE: XR foot complete LT DATE OF EXAM: 04/20/2024 CLINICAL HISTORY: pain TECHNIQUE: Frontal, lateral and oblique images of the left foot are obtained. COMPARISON: Preoperative study 03/03/2024 FINDINGS: There is amputation left fifth digit. There appears to be soft tissue air which could be po stoperative in nature however air producing infection is not excluded. Correlate with patient's surgi micaela history. Amputation extends to the neck of the fifth metatarsal. No definite irregularity about t he osteotomy site however underlying osteomyelitis is difficult to exclude. Comparison with postopera tive studies would be of value as well as strict clinical correlation. WBC scan could be obtained as well. Chronic appearing fracture with partial union left second metatarsal. IMPRESSION: Air producing infection and osteomyelitis difficult to exclude. See above.
[2024-04-20] MEDS: KETOROLAC 15 MG/ML 1 ML VIAL IVP STA (18:02)
[2024-04-20] MEDS: SODIUM CHLORIDE 0.9% 1,000 ML BAG IV STA (18:04)
[2024-04-20 18:59] LABS: ALT 21 U/L (4-34); AST 28 U/L (14-36); African American GFR (CKD) 71 (>60 ml/min/1.73 sqM); Alkaline Phosphatase 104 U/L (38-126); Anion Gap 10 mmol/L; Basophils % (A) 0 %; Blood Urea Nitrogen 26 mg/dL (7-17); Calcium 9.9 mg/dL (8.4-10.2); Carbon Dioxide 25 mmol/L (22-30); Chloride 97 mmol/L (98-107); Eosinophils # (A) 0.1 k/uL (0-0.7); Eosinophils % (A) 1 %; Glucose 385 mg/dL (74-99); HGB 10.7 gm/dL (11.4-16.0); Hypochromasia Moderate; Lymphocytes # (A) 1.3 k/uL (1.0-4.8); Lymphocytes % (A) 11 %; MCH 26.5 pg (25.0-35.0); MCHC 31.4 g/dL (31.0-37.0); MCV 84.5 fL (80.0-100.0); Monocytes # (A) 0.5 k/uL (0-1.0); Monocytes % (A) 4 %; Neutrophils # (A) 9.8 k/uL (1.3-7.7); Neutrophils % (A) 83 %; Non-African American GFR(CKD) 62 (>60 ml/min/1.73 sqM); Platelet Count 437 k/uL (150-450); Potassium 5.3 mmol/L (3.5-5.1); RBC 4.02 m/uL (3.80-5.40); RDW 14.2 % (11.5-15.5); Sodium 132 mmol/L (137-145); Total Bilirubin 0.5 mg/dL (0.2-1.3); Total Protein 7.2 g/dL (6.3-8.2); WBC 11.8 k/uL (3.8-10.6)
[2024-04-20 19:22] LABS: C Reactive Protein 5.2 mg/dL (<1.0)
[2024-04-20] MEDS ORDERED: VANCOMYCIN IV PER PHARMACY 1 EACH MISC MISCELLANE PRN (20:08)
[2024-04-20] MEDS ORDERED: HYDROmorphone 1 MG/ML 1 ML SYRINGE IVP PRN (20:18)
[2024-04-20] MEDS ORDERED: NALOXONE 0.4 MG/ML 1 ML VIAL IV PRN (20:18)
[2024-04-20] MEDS ORDERED: ALBUTEROL HFA INHALER INHALATION PRN (20:29)
[2024-04-20 20:38] LABS: Glucose,Whole Blood 412 mg/dL (70-110)
[2024-04-20 20:41] LABS: Appearance,Urine Cloudy (Clear); Bacteria,Urine Rare /hpf; Bilirubin,Urine Negative (Negative); Blood,Urine Negative (Negative); Color,Urine Light Yellow; Glucose,Urine (UA) 4+ (Negative); Hyaline Casts,Urine 5 /lpf (0-2); Ketones,Urine Negative (Negative); Leukocyte Esterase,Urine Large (Negative); Mucus,Urine Rare /hpf; Nitrite,Urine Negative (Negative); Protein,Urine 2+ (Negative); RBC,Urine 1 /hpf (0-5); Specific Gravity,Urine 1.023 (1.001-1.035); Squamous Epithelial Cell,Urine 10 /hpf (0-4); Urobilinogen,Urine <2.0 mg/dL (<2.0); WBC,Urine 44 /hpf (0-5)
[2024-04-20] MEDS: HYDROmorphone 0.5 MG/0.5 ML SYRINGE IVP STA (20:56)
[2024-04-20] MEDS: cefTRIAXone IN SWFI 1,000 MG/10 ML SYRINGE IVP STA (20:57)
[2024-04-20] MEDS ORDERED: NON FORMULARY DRUG (Insulin Glargine,Hum.Rec.Anlog [Lantus Solostar Pen] 100 UNIT/ML Insul SQ SCH (21:00)
[2024-04-20] MEDS: VANCOMYCIN 1,500 MG in SODIUM CHLORIDE 0.9% 500 ML 500 ML IVPB SCH (21:01)
[2024-04-20] MEDS: METOPROLOL TARTRATE 50 MG TAB PO SCH (21:03)
[2024-04-20] MEDS: INSULIN REGULAR 100 UNIT/ML VIAL (IV) SQ SCH (21:05)
[2024-04-20] MEDS: INSULIN REGULAR 100 UNIT/ML VIAL (IV) IV ONE (21:08)
[2024-04-20] MEDS: INSULIN DETEMIR (LEVEMIR) 100 UNIT/ML SYR SQ SCH (22:04)
[2024-04-20 22:05] LABS: Glucose,Whole Blood 367 mg/dL (70-110)
[2024-04-20] MEDS: SODIUM CHLORIDE 0.9% 1,000 ML IV SCH (22:49)
[2024-04-20 23:19] LABS: Glucose,Whole Blood 291 mg/dL (70-110)
[2024-04-20] MEDS: INSULIN ASPART (NovoLOG) 100 UNIT/ML VIAL SQ SCH (23:55)
[2024-04-21 04:28] LABS: Glucose,Whole Blood 55 mg/dL (70-110)
[2024-04-21 04:46] LABS: Glucose,Whole Blood 92 mg/dL (70-110)
[2024-04-21 06:37] LABS: Glucose,Whole Blood 151 mg/dL (70-110)
[2024-04-21 06:37] LABS: African American GFR (CKD) 59 (>60 ml/min/1.73 sqM); Non-African American GFR(CKD) 51 (>60 ml/min/1.73 sqM)
[2024-04-21 09:17] LABS: Basophils # (A) 0.05 X 10*3/uL (0.00-0.10); Basophils % (A) 0.5 %; Eosinophils # (A) 0.15 X 10*3/uL (0.04-0.35); Eosinophils % (A) 1.5 %; HCT 29.9 % (37.2-46.3); HGB 8.8 g/dL (12.0-15.0); Lymphocytes # (A) 1.27 X 10*3/uL (0.90-5.00); Lymphocytes % (A) 12.4 %; MCH 25.1 pg (27.0-32.0); MCHC 29.4 g/dL (32.0-37.0); MCV 85.2 FL (80.0-97.0); Mean Platelet Volume 9.8 FL (9.5-12.2); Monocytes # (A) 0.71 X 10*3/uL (0.20-1.00); NRBC Per 100 WBC 0 X 10*3/uL (0.00-0.01); Neutrophils # (A) 7.99 X 10*3/uL (1.80-7.70); Neutrophils % (A) 78.2 %; Platelet Count 404 X 10*3/uL (140-440); RBC 3.51 X 10*6/uL (4.10-5.20); RDW 14.5 % (11.5-14.5); WBC 10.21 X 10*3/uL (4.50-10.00)
[2024-04-21] MEDS: LISINOPRIL-HCTZ 20-25 MG 1 EACH TAB PO SCH (10:34)
[2024-04-21] MEDS: ASPIRIN 81 MG PO SCH (10:34)
[2024-04-21 10:40] LABS: Glucose,Whole Blood 245 mg/dL (70-110)
[2024-04-21] MEDS ORDERED: MELATONIN 3 MG TABLET PO PRN (11:15)
[2024-04-21 11:35] LABS: Glucose,Whole Blood 219 mg/dL (70-110)
[2024-04-21] MEDS: ENOXAPARIN 40 MG/0.4 ML SYRINGE SQ SCH (12:11)
[2024-04-21 12:26] LABS: Glucose,Whole Blood 189 mg/dL (70-110)
[2024-04-21] MEDS: ACETAMINOPHEN TAB 325 MG TAB PO PRN (13:21)
[2024-04-21 16:44] LABS: Glucose,Whole Blood 59 mg/dL (70-110)
[2024-04-21 16:58] LABS: Glucose,Whole Blood 71 mg/dL (70-110)
--- NOTE | 2024-04-21 17:02 | P.CONS ---
History of Present Illness - Reason for Consult Consult date: 04/21/24 Left foot infection Requesting physician: Eugene Maher - Chief Complaint Left foot worsening wound and redness x days - History of Present Illness Patient is a 58-year-old female with a past medical history significant for diabetes mellitus hypertension hyperlipidemia AR recently admitted to hospital with back left fifth toe gangrene diabetic foot infection i n this patient who is status post left fifth toe amputation on 03/29/2024 patient was subsequently discharged in patient mention she did have a post hospital follow-up with the surgeon and noticed to have some infection and was started on oral Augmentin with the patient has taken however patient now presenting back to the ER concerning for worsening wound to the left fifth toe amputation site patient did have some blackish discoloration pain is mostly dull aching to sharp mild to moderate intensity without radiation and did have some drainage denies high-grade fever and did not have any fever on presentation to the hospital patient was not tachycardic hypotensive or hypoxic did have a white count of 11.8 with a left shift. Is 1.17 liver enzymes are normal CRP is 5.2 urine is positive local culture. She currently pending patient did have x-ray of the foot it progressing infection and osteomyelitis difficult exclude patient is currently being empirically treated with vancomycin Review of Systems Positive point and negatives has been mentioned in the HPI, complete review of systems was performed and all other systems are negative Past Medical History Past Medical History: Asthma, Blood Disorder, Coronary Artery Disease (CAD), Diabetes Mellitus, Eye Disorder, GERD/Reflux, Hyperlipidemia, Hypertension, Myocardial Infarction ([place]), Pneumonia, Skin Disorder, Vascular Disorder Additional Past Medical History / Comment(s): Type II diabetic IDDM. retinitis pigmentosa (losing peripheral vision), Hx of cellulitis lt foot March 03, 2024. Circulation issues to lt leg-recent February 2024. IBD. Recent hospitalization @[facility] February-pt states she was anemic. States Hgb at discharge was 8.4. Pt states she had re-draw last week @[facility] out pt lab and it was Hgb was 9.6. She states she was put on Multivitamin. Last Myocardial Infarction Date:: 05/2015 History of Any Multi-Drug Resistant Organisms: None Reported Past Surgical History: Heart Catheterization, Heart Catheterization With Stent Additional Past Surgical History / Comment(s): boil under armpit (2000) Cardiac stent x3. Stent to lt leg March 07, 2024. Past Anesthesia/Blood Transfusion Reactions: No Reported Reaction Additional Past Anesthesia/Blood Transfusion Reaction / Comm: No hx of blood transfusion. Date of Last Stent Placement:: 05/30/2015 Past Psychological History: Anxiety Smoking Status: Former smoker Past Alcohol Use History: None Reported Past Drug Use History: None Reported - Past Family History Mother Family Medical History: Hypertension Additional Family Medical History / Comment(s): borderline diabetic Father Family Medical History: Cancer Additional Family Medical History / Comment(s): leukemia, stents placed, at 81 years old Medications and Allergies Home Medications Medication Instructions Recorded Confirmed Type Aspirin EC [Ecotrin Low Dose] 81 mg PO DAILY 03/03/24 04/20/24 History Albuterol Sulfate [Ventolin HFA] 2 puff INHALATION RT-Q6H PRN 04/20/24 04/20/24 History Ertapenem [INVanz] 1 gm IVPB Q24H #42 each 05/07/24 Rx Acetaminophen Tab [Tylenol] 650 mg PO Q6HR PRN tab 05/08/24 Rx Calcium Carbonate [Tums] 1,000 mg PO Q4HR PRN tab 05/08/24 Rx Clopidogrel [Plavix] 75 mg PO DAILY #30 tab 05/08/24 Rx Collagenase [Santyl Ointment] 1 applic TOPICAL DAILY #1 each 05/08/24 Rx Dapagliflozin Propanediol [Farxiga] 10 mg PO DAILY #30 tab 05/08/24 Rx Famotidine [Pepcid] 20 mg PO DAILY #30 tab 05/08/24 Rx Furosemide [Lasix] 20 mg PO DAILY #30 tab 05/08/24 Rx Gabapentin [Neurontin] 100 mg PO TID #90 cap 05/08/24 Rx Insulin Glargine,Hum.rec.anlog 30 units SQ HS #0 05/08/24 04/20/24 Rx [Lantus Solostar Pen] Insulin Regular [humuLIN R] 30 units SQ BID #0 05/08/24 04/20/24 Rx Losartan [Cozaar] 12.5 mg PO DAILY #30 tab 05/08/24 Rx Mag Hydrox/Al Hydrox/Simeth 30 ml PO Q4HR PRN ml 05/08/24 Rx [Maalox] Metoprolol Succinate (ER) [Toprol 25 mg PO DAILY #30 tab 05/08/24 Rx XL] Nitroglycerin Sl Tabs [Nitrostat] 0.4 mg SUBLINGUAL Q5M PRN #20 tab 05/08/24 Rx amLODIPine [Norvasc] 10 mg PO DAILY #30 tab 05/08/24 Rx Allergies Allergy/AdvReac Type Severity Reaction Status Date / Time ciprofloxacin [From Cipro] AdvReac Nausea & Verified 04/24/24 13:38 Vomiting ciprofloxacin HCl AdvReac Nausea & Verified 04/24/24 13:38 [From Cipro] Vomiting clindamycin AdvReac Nausea & Verified 04/24/24 13:38 Vomiting sulfamethoxazole AdvReac Nausea & Verified 04/24/24 13:38 [From Bactrim] Vomiting trimethoprim [From Bactrim] AdvReac Nausea & Verified 04/24/24 13:38 Vomiting Physical Exam Vitals: Vital Signs Temp Pulse Pulse Resp BP BP Pulse Ox 04/21/24 08:00 98.3 F 88 18 168/74 97 04/21/24 07:00 77 18 155/78 99 04/21/24 04:00 75 18 161/79 100 04/20/24 23:28 76 15 156/75 96 04/20/24 20:40 98.2 F 85 16 185/100 97 04/20/24 16:01 98.3 F 83 16 164/68 97 Intake and Output 04/20/24 04/21/24 04/21/24 22:59 06:59 14:59 Other: Weight 83.461 kg GENERAL DESCRIPTION: Middle-aged female lying in bed, no distress. No tachypnea or accessory muscle of respiration use. HEENT: Shows Pallor , no scleral icterus. Oral mucous membrane is dry. No pharyngeal erythema or thrush NECK: Trachea central, no thyromegaly. LUNGS: Unlabored breathing. Clear to auscultation anteriorly. No wheeze or crackle. HEART: S1, S2, regular rate and rhythm. No loud murmur ABDOMEN: Soft, no tenderness , guarding or rigidity, no organomegaly EXTREMITIES: Left foot fifth toe amputation site wound base with slough tissue some surrounding skin necrosis and redness SKIN: No rash, no masses palpable. NEUROLOGICAL: The patient is awake, alert, oriented x3, mood and affect normal. Results CBC & Chem 7: 05/07/24 09:49 05/08/24 10:41 Labs: Abnormal Lab Results - Last 24 Hours (Table) 04/20/24 04/20/24 04/20/24 Range/Units 18:09 18:09 19:16 WBC 11.8 H (3.8-10.6) k/uL RBC (4.10-5.20) X 10*6/uL Hgb 10.7 L (11.4-16.0) gm/dL Hct (37.2-46.3) % MCH (27.0-32.0) pg MCHC (32.0-37.0) g/dL Neutrophils # 9.8 H (1.3-7.7) k/uL Sodium 132 L (137-145) mmol/L Potassium 5.3 H (3.5-5.1) mmol/L Chloride 97 L (98-107) mmol/L BUN 26 H (7-17) mg/dL Creatinine (0.52-1.04) mg/dL Glucose 385 H (74-99) mg/dL POC Glucose (mg/dL) (70-110) mg/dL C-Reactive Protein 5.2 H (<1.0) mg/dL Urine Appearance Cloudy H (Clear) Urine Protein 2+ H (Negative) Urine Glucose (UA) 4+ H (Negative) Ur Leukocyte Esterase Large H (Negative) Urine WBC 44 H (0-5) /hpf Ur Squamous Epith Cells 10 H (0-4) /hpf Urine Bacteria Rare H (None) /hpf Hyaline Casts 5 H (0-2) /lpf Urine Mucus Rare H (None) /hpf 04/20/24 04/20/24 04/20/24 Range/Units 20:35 22:03 23:17 WBC (3.8-10.6) k/uL RBC (4.10-5.20) X 10*6/uL Hgb (11.4-16.0) gm/dL Hct (37.2-46.3) % MCH (27.0-32.0) pg MCHC (32.0-37.0) g/dL Neutrophils # (1.3-7.7) k/uL Sodium (137-145) mmol/L Potassium (3.5-5.1) mmol/L Chloride (98-107) mmol/L BUN (7-17) mg/dL Creatinine (0.52-1.04) mg/dL Glucose (74-99) mg/dL POC Glucose (mg/dL) 412 H 367 H 291 H (70-110) mg/dL C-Reactive Protein (<1.0) mg/dL Urine Appearance (Clear) Urine Protein (Negative) Urine Glucose (UA) (Negative) Ur Leukocyte Esterase (Negative) Urine WBC (0-5) /hpf Ur Squamous Epith Cells (0-4) /hpf Urine Bacteria (None) /hpf Hyaline Casts (0-2) /lpf Urine Mucus (None) /hpf 04/21/24 04/21/24 04/21/24 Range/Units 04:26 05:33 05:33 WBC 10.21 H (3.8-10.6) k/uL RBC 3.51 L (4.10-5.20) X 10*6/uL Hgb 8.8 L (11.4-16.0) gm/dL Hct 29.9 L (37.2-46.3) % MCH 25.1 L (27.0-32.0) pg MCHC 29.4 L (32.0-37.0) g/dL Neutrophils # 7.99 H (1.3-7.7) k/uL Sodium (137-145) mmol/L Potassium (3.5-5.1) mmol/L Chloride (98-107) mmol/L BUN (7-17) mg/dL Creatinine 1.17 H (0.52-1.04) mg/dL Glucose (74-99) mg/dL POC Glucose (mg/dL) 55 L (70-110) mg/dL C-Reactive Protein (<1.0) mg/dL Urine Appearance (Clear) Urine Protein (Negative) Urine Glucose (UA) (Negative) Ur Leukocyte Esterase (Negative) Urine WBC (0-5) /hpf Ur Squamous Epith Cells (0-4) /hpf Urine Bacteria (None) /hpf Hyaline Casts (0-2) /lpf Urine Mucus (None) /hpf 04/21/24 Range/Units 06:35 WBC (3.8-10.6) k/uL RBC (4.10-5.20) X 10*6/uL Hgb (11.4-16.0) gm/dL Hct (37.2-46.3) % MCH (27.0-32.0) pg MCHC (32.0-37.0) g/dL Neutrophils # (1.3-7.7) k/uL Sodium (137-145) mmol/L Potassium (3.5-5.1) mmol/L Chloride (98-107) mmol/L BUN (7-17) mg/dL Creatinine (0.52-1.04) mg/dL Glucose (74-99) mg/dL POC Glucose (mg/dL) 151 H (70-110) mg/dL C-Reactive Protein (<1.0) mg/dL Urine Appearance (Clear) Urine Protein (Negative) Urine Glucose (UA) (Negative) Ur Leukocyte Esterase (Negative) Urine WBC (0-5) /hpf Ur Squamous Epith Cells (0-4) /hpf Urine Bacteria (None) /hpf Hyaline Casts (0-2) /lpf Urine Mucus (None) /hpf Assessment and Plan (1) Allergy to multiple antibiotics Status: Acute Code(s): Z88.1 - ALLERGY STATUS TO OTHER ANTIBIOTIC AGENTS SNOMED Code(s): 666256627 (2) Cellulitis of left foot Status: Acute Code(s): L03.116 - CELLULITIS OF LEFT LOWER LIMB SNOMED Code(s): 33464290363308253 (3) Diabetic infection of left foot Status: Acute Code(s): E11.628 - TYPE 2 DIABETES MELLITUS WITH OTHER SKIN COMPLICATIONS; L08.9 - LOCAL INFECTION OF THE SKIN AND SUBCUTANEOUS TISSUE, UNSP SNOMED Code(s): 143596236 Plan: 1patient with a left fifth toe diabetic foot wound and this patient was status post amputation of the left fifth toe now with evidence of nonhealing wound to the left fifth amputation site and some gangrene failing outpatient oral Augmentin therapy we will need to cover for resistant gram-positive as well as gram-negative pathogen. 2await surgical evaluation and debridement of the wound as well as deep culture. 3continue with the vancomycin we will add cefepime and Flagyl to cover for the gram-negative and anaerobes we will follow on clinical condition and cultures to further adjust medication if needed Thank you for this consultation we will follow the patient along with you Dictation was produced using [employer] software. please excuse any grammatical, word or spelling errors. Time with Patient: Greater than 30
--- NOTE | 2024-04-21 17:16 | P.HPIM ---
History of Present Illness H&P Date: 04/21/24 Chief Complaint: Left foot infection Patient is a 58-year-old female with known history of coronary disease status post stent placement, diabetes type 2 insulin-dependent, hypertension, asthma and history of retinitis pigmentosa, anxiety 03/05/2024: CT angiogram of the abdomen aorta with runoff showed heavily calcified bilateral lower extremity arterial vasculature involving the superficial femoral arteries and extending inferiorly to the popliteal artery to the feet is limited due to severe atherosclerotic plaque. Patient was discharged from the hospital on March [address] Ledesma. Left toe was felt will probably demarcate. With gangrene. March 28: Left fifth toe ray amputation carried out by Dr. Ledesma. Patient did not return to the office outpatient to see Dr. Ledesma on April 08. There was some odor from the amputation site. Was given 10-day course of Augmentin. Patient now presents with increasing drainage and highly sensitive area of the left foot. No fever no chills. Appetite not too good. Has been using a walker Review of systems: GEN.: Tired EYES: None HEENT: None NECK: None RESPIRATORY: None CARDIOVASCULAR: None GASTROINTESTINAL: None GENITOURINARY: None MUSCULOSKELETAL: Joint pains e LYMPHATICS: None HEMATOLOGICAL: None PSYCHIATRY: None NEUROLOGICAL: Using a walker Social history: Lives alone. No alcohol. Patient smoked 1 pack a day from 1983. On examination: VITAL SIGNS: 98.3, 88, 18, 168 presently 4, 97% room air GENERAL APPEARANCE: BMI 31.6, reclining bed awake not in distress HEENT: Normal external appearance of nose and ear. Oral cavity normal EYES: Pupils equal. Conjunctiva normal. NECK: JVD not raised. Mass not palpable. RESPIRATORY: Respiratory effort normal. Lungs clear to auscultation. CARDIOVASCULAR: First and second sounds normal. No edema. ABDOMEN: Soft. Liver and spleen not palpable. No tenderness. No mass palpable. PSYCHIATRY: Alert and oriented x3. Mood and affect normal. EXTREMITIES: Left foot in a dressing INVESTIGATIONS, reviewed in the clinical context: April 21: White count 10.2 hemoglobin 8.8 platelets 404 April 20: Sodium 132 potassium 5.3 BUN 26 creatinine 1.0 Previous testing Hemoglobin 8.[address]ogram: [February 2022] heavily calcified bilateral lower extremity arterial vasculature involving the superficial femoral arteries. Extending inferiorly. Extending into the femoral artery then is limited due to severe atherosclerotic plaque. Multiple areas of high-grade stenosis. Assessment and plan: -Acute left fifth toe dry gangrene and diabetic foot infection, secondary to diabetes and PAD, leading to left fifth toe amputation ray on March [address] Ledesma Return to see Dr. Ledesma in the office on April 08 with some drainage and being to have an order follow-up. Discharged on 10 days of Augmentin. Now presents with worsening local area with drainage and odor increased yesterday. On IV vancomycin. IV cefepime. P.o. Flag[employer] Consulting Dr. Ledesma and ID. -Severe peripheral arterial disease As per CT angiogram. Aspirin, Plavix held for now in case of surgical intervention Lipitor 40 mg nightly -Diabetes type 2 insulin-dependent uncontrolled A1c level 9.6 Levemir, Humulin R. Accu-Cheks with sliding scale insulin -Iron deficiency anemia -Coronary disease with history of stent placement Plavix-hold for now in case of surgical intervention. Aspirin-resumed. Lipitor added -Essential hypertension Lopressor 50 mg twice daily. 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 6 Weight loss measures -Anxiety -Full code Care was discussed with the patient. Past Medical History Past Medical History: Asthma, Blood Disorder, Coronary Artery Disease (CAD), Diabetes Mellitus, Eye Disorder, GERD/Reflux, Hyperlipidemia, Hypertension, Myocardial Infarction ([place]), Pneumonia, Skin Disorder, Vascular Disorder Additional Past Medical History / Comment(s): Type II diabetic IDDM. retinitis pigmentosa (losing peripheral vision), Hx of cellulitis lt foot March 03, 2024. Circulation issues to lt leg-recent February 2024. IBD. Recent hospitalization @[facility] February-pt states she was anemic. States Hgb at discharge was 8.4. Pt states she had re-draw last week @[facility] out pt lab and it was Hgb was 9.6. She states she was put on Multivitamin. Last Myocardial Infarction Date:: 05/2015 History of Any Multi-Drug Resistant Organisms: None Reported Past Surgical History: Heart Catheterization, Heart Catheterization With Stent Additional Past Surgical History / Comment(s): boil under armpit (2000) Cardiac stent x3. Stent to lt leg March 07, 2024. Past Anesthesia/Blood Transfusion Reactions: No Reported Reaction Additional Past Anesthesia/Blood Transfusion Reaction / Comment(s): No hx of blood transfusion. Date of Last Stent Placement:: 05/30/2015 Past Psychological History: Anxiety Smoking Status: Former smoker Past Alcohol Use History: None Reported Past Drug Use History: None Reported - Past Family History Mother Family Medical History: Hypertension Additional Family Medical History / Comment(s): borderline diabetic Father Family Medical History: Cancer Additional Family Medical History / Comment(s): leukemia, stents placed, at 81 years old Medications and Allergies Home Medications Medication Instructions Recorded Confirmed Type Lisinopril/Hydrochlorothiazide 1 tab PO DAILY 06/23/15 04/20/24 History [Zestoretic ] Aspirin EC [Ecotrin Low Dose] 81 mg PO DAILY 03/03/24 04/20/24 History Insulin Glargine,Hum.rec.anlog 40 units SQ HS 03/03/24 04/20/24 History [Lantus Solostar Pen] Insulin Regular [humuLIN R] 40 units SQ BID 03/03/24 04/20/24 History Metoprolol Tartrate [Lopressor] 50 mg PO BID 03/03/24 04/20/24 History Clopidogrel [Plavix] 75 mg PO DAILY 03/26/24 04/20/24 History Albuterol Sulfate [Ventolin HFA] 2 puff INHALATION RT-Q6H PRN 04/20/24 04/20/24 History Allergies Allergy/AdvReac Type Severity Reaction Status Date / Time ciprofloxacin [From Cipro] AdvReac Nausea & Verified 04/20/24 20:27 Vomiting ciprofloxacin HCl AdvReac Nausea & Verified 04/20/24 20:27 [From Cipro] Vomiting clindamycin AdvReac Nausea & Verified 04/20/24 20:27 Vomiting sulfamethoxazole AdvReac Nausea & Verified 04/20/24 20:27 [From Bactrim] Vomiting trimethoprim [From Bactrim] AdvReac Nausea & Verified 04/20/24 20:27 Vomiting Physical Exam Vitals: Vital Signs Temp Pulse Pulse Resp BP BP Pulse Ox 04/21/24 08:00 98.3 F 88 18 168/74 97 04/21/24 07:00 77 18 155/78 99 04/21/24 04:00 75 18 161/79 100 04/20/24 23:28 76 15 156/75 96 04/20/24 20:40 98.2 F 85 16 185/100 97 04/20/24 16:01 98.3 F 83 16 164/68 97 Intake and Output 04/20/24 04/21/24 04/21/24 22:59 06:59 14:59 Other: Weight 83.461 kg Results CBC & Chem 7: 04/21/24 05:33 04/21/24 05:33 Labs: Abnormal Lab Results - Last 24 Hours (Table) 04/20/24 04/20/24 04/20/24 Range/Units 18:09 18:09 19:16 WBC 11.8 H (3.8-10.6) k/uL RBC (4.10-5.20) X 10*6/uL Hgb 10.7 L (11.4-16.0) gm/dL Hct (37.2-46.3) % MCH (27.0-32.0) pg MCHC (32.0-37.0) g/dL Neutrophils # 9.8 H (1.3-7.7) k/uL Sodium 132 L (137-145) mmol/L Potassium 5.3 H (3.5-5.1) mmol/L Chloride 97 L (98-107) mmol/L BUN 26 H (7-17) mg/dL Creatinine (0.52-1.04) mg/dL Glucose 385 H (74-99) mg/dL POC Glucose (mg/dL) (70-110) mg/dL C-Reactive Protein 5.2 H (<1.0) mg/dL Urine Appearance Cloudy H (Clear) Urine Protein 2+ H (Negative) Urine Glucose (UA) 4+ H (Negative) Ur Leukocyte Esterase Large H (Negative) Urine WBC 44 H (0-5) /hpf Ur Squamous Epith Cells 10 H (0-4) /hpf Urine Bacteria Rare H (None) /hpf Hyaline Casts 5 H (0-2) /lpf Urine Mucus Rare H (None) /hpf 04/20/24 04/20/24 04/20/24 Range/Units 20:35 22:03 23:17 WBC (3.8-10.6) k/uL RBC (4.10-5.20) X 10*6/uL Hgb (11.4-16.0) gm/dL Hct (37.2-46.3) % MCH (27.0-32.0) pg MCHC (32.0-37.0) g/dL Neutrophils # (1.3-7.7) k/uL Sodium (137-145) mmol/L Potassium (3.5-5.1) mmol/L Chloride (98-107) mmol/L BUN (7-17) mg/dL Creatinine (0.52-1.04) mg/dL Glucose (74-99) mg/dL POC Glucose (mg/dL) 412 H 367 H 291 H (70-110) mg/dL C-Reactive Protein (<1.0) mg/dL Urine Appearance (Clear) Urine Protein (Negative) Urine Glucose (UA) (Negative) Ur Leukocyte Esterase (Negative) Urine WBC (0-5) /hpf Ur Squamous Epith Cells (0-4) /hpf Urine Bacteria (None) /hpf Hyaline Casts (0-2) /lpf Urine Mucus (None) /hpf 04/21/24 04/21/24 04/21/24 Range/Units 04:26 05:33 05:33 WBC 10.21 H (3.8-10.6) k/uL RBC 3.51 L (4.10-5.20) X 10*6/uL Hgb 8.8 L (11.4-16.0) gm/dL Hct 29.9 L (37.2-46.3) % MCH 25.1 L (27.0-32.0) pg MCHC 29.4 L (32.0-37.0) g/dL Neutrophils # 7.99 H (1.3-7.7) k/uL Sodium (137-145) mmol/L Potassium (3.5-5.1) mmol/L Chloride (98-107) mmol/L BUN (7-17) mg/dL Creatinine 1.17 H (0.52-1.04) mg/dL Glucose (74-99) mg/dL POC Glucose (mg/dL) 55 L (70-110) mg/dL C-Reactive Protein (<1.0) mg/dL Urine Appearance (Clear) Urine Protein (Negative) Urine Glucose (UA) (Negative) Ur Leukocyte Esterase (Negative) Urine WBC (0-5) /hpf Ur Squamous Epith Cells (0-4) /hpf Urine Bacteria (None) /hpf Hyaline Casts (0-2) /lpf Urine Mucus (None) /hpf 04/21/ Range/Units 06:35 WBC (3.8-10.6) k/uL RBC (4.10-5.20) X 10*6/uL Hgb (11.4-16.0) gm/dL Hct (37.2-46.3) % MCH (27.0-32.0) pg MCHC (32.0-37.0) g/dL Neutrophils # (1.3-7.7) k/uL Sodium (137-145) mmol/L Potassium (3.5-5.1) mmol/L Chloride (98-107) mmol/L BUN (7-17) mg/dL Creatinine (0.52-1.04) mg/dL Glucose (74-99) mg/dL POC Glucose (mg/dL) 151 H (70-110) mg/dL C-Reactive Protein (<1.0) mg/dL Urine Appearance (Clear) Urine Protein (Negative) Urine Glucose (UA) (Negative) Ur Leukocyte Esterase (Negative) Urine WBC (0-5) /hpf Ur Squamous Epith Cells (0-4) /hpf Urine Bacteria (None) /hpf Hyaline Casts (0-2) /lpf Urine Mucus (None) /hpf
[2024-04-21] MEDS: CEFEPIME 2 GM in SODIUM CHLORIDE 0.9% 100 ML IVPB SCH (17:17)
[2024-04-21] MEDS: metroNIDAZOLE 500 MG TAB PO SCH (17:18)
[2024-04-21 20:54] LABS: Glucose,Whole Blood 135 mg/dL (70-110)
[2024-04-21] MEDS: INSULIN REGULAR 100 UNIT/ML VIAL (IV) SQ SCH (20:57)
[2024-04-21] MEDS: ATORVASTATIN 40 MG TAB PO SCH (21:00)
[2024-04-21] MEDS: INSULIN DETEMIR (LEVEMIR) 100 UNIT/ML SYR SQ SCH (21:01)
[2024-04-22 02:00] LABS: Glucose,Whole Blood 156 mg/dL (70-110)
[2024-04-22 05:38] LABS: African American GFR (CKD) 64 (>60 ml/min/1.73 sqM); Non-African American GFR(CKD) 56 (>60 ml/min/1.73 sqM)
[2024-04-22 05:45] LABS: Glucose,Whole Blood 153 mg/dL (70-110)
[2024-04-22 11:46] LABS: Glucose,Whole Blood 152 mg/dL (70-110)
--- NOTE | 2024-04-22 14:31 | P.GSCN ---
History of Present Illness Consult date: 04/22/24 Reason for Consult: Left foot infection Requesting physician: Eugene Maher History of present illness: This is a pleasant 58-year-old female known to our practice who recently underwent a left fifth toe amputation on 03/28/[address] Ledesma. She has a past medical history including insulin dependent diabetes mellitus, coronary artery disease status post stent placement, hypertension and asthma. She states that she has been seeing wound care and when she last went they were concerned for infection and recommended that she go to the emergency department. She came in on Monday evening and was admitted to the hospital for antibiotic therapy with consultation to vascular surgery. X-ray reported air producing infection and osteomyelitis difficult to exclude. She currently denies any shortness of breath, chest pain, abdominal pain, nausea or vomiting. No fevers, chills or bodyaches. She has been afebrile. Wound culture preliminary growing E. coli. Blood cultures no growth after 24 hours. Review of Systems A 14 point review systems was completed all pertinent positives and negatives as stated in the HPI. Past Medical History Past Medical History: Asthma, Blood Disorder, Coronary Artery Disease (CAD), Diabetes Mellitus, Eye Disorder, GERD/Reflux, Hyperlipidemia, Hypertension, Myocardial Infarction ([place]), Pneumonia, Skin Disorder, Vascular Disorder Additional Past Medical History / Comment(s): Type II diabetic IDDM. retinitis pigmentosa (losing peripheral vision), Hx of cellulitis lt foot March 03, 2024. Circulation issues to lt leg-recent February 2024. IBD. Recent hospitalization @[facility] February-pt states she was anemic. States Hgb at discharge was 8.4. Pt states she had re-draw last week @[facility] out pt lab and it was Hgb was 9.6. She states she was put on Multivitamin. Last Myocardial Infarction Date:: 05/2015 History of Any Multi-Drug Resistant Organisms: None Reported Past Surgical History: Heart Catheterization, Heart Catheterization With Stent Additional Past Surgical History / Comment(s): boil under armpit (2000) Cardiac stent x3. Stent to lt leg March 07, 2024. Past Anesthesia/Blood Transfusion Reactions: No Reported Reaction Additional Past Anesthesia/Blood Transfusion Reaction / Comm: No hx of blood transfusion. Date of Last Stent Placement:: 05/30/2015 Past Psychological History: Anxiety Smoking Status: Former smoker Past Alcohol Use History: None Reported Past Drug Use History: None Reported - Past Family History Mother Family Medical History: Hypertension Additional Family Medical History / Comment(s): borderline diabetic Father Family Medical History: Cancer Additional Family Medical History / Comment(s): leukemia, stents placed, at 81 years old Medications and Allergies Home Medications Medication Instructions Recorded Confirmed Type Lisinopril/Hydrochlorothiazide 1 tab PO DAILY 06/23/15 04/20/24 History [Zestoretic ] Aspirin EC [Ecotrin Low Dose] 81 mg PO DAILY 03/03/24 04/20/24 History Insulin Glargine,Hum.rec.anlog 40 units SQ HS 03/03/24 04/20/24 History [Lantus Solostar Pen] Insulin Regular [humuLIN R] 40 units SQ BID 03/03/24 04/20/24 History Metoprolol Tartrate [Lopressor] 50 mg PO BID 03/03/24 04/20/24 History Clopidogrel [Plavix] 75 mg PO DAILY 03/26/24 04/20/24 History Albuterol Sulfate [Ventolin HFA] 2 puff INHALATION RT-Q6H PRN 04/20/24 04/20/24 History Allergies Allergy/AdvReac Type Severity Reaction Status Date / Time ciprofloxacin [From Cipro] AdvReac Nausea & Verified 04/20/24 20:27 Vomiting ciprofloxacin HCl AdvReac Nausea & Verified 04/20/24 20:27 [From Cipro] Vomiting clindamycin AdvReac Nausea & Verified 04/20/24 20:27 Vomiting sulfamethoxazole AdvReac Nausea & Verified 04/20/24 20:27 [From Bactrim] Vomiting trimethoprim [From Bactrim] AdvReac Nausea & Verified 04/20/24 20:27 Vomiting Surgical - Exam Vital Signs Temp Pulse Resp BP Pulse Ox 98.3 F 83 16 164/68 97 04/20/24 16:01 04/20/24 16:01 04/20/24 16:01 04/20/24 16:01 04/20/24 16:01 General appearance: The patient is alert, oriented, appears in no acute distress. HET: Head is normocephalic and atraumatic. Pupils are equal and reactive. Neck: Supple. Heart: Regular. Lungs: Equal expansion, normal respiratory effort. Abdomen: Soft, nontender, nondistended. Extremities: Left foot fifth toe amputation site with eschar, purulent drainage. Palpable DP pulse. Neurological: No focal deficits. Strength and sensation are grossly intact. Results - Labs 04/21/24 05:33 04/22/24 05:11 Abnormal Lab Results - Last 24 Hours (Table) 04/21/24 04/21/24 04/21/24 Range/Units 10:38 11:33 12:24 Creatinine (0.52-1.04) mg/dL POC Glucose (mg/dL) 245 H 219 H 189 H (70-110) mg/dL 04/21/24 04/21/24 04/22/24 Range/Units 16:42 20:52 01:58 Creatinine (0.52-1.04) mg/dL POC Glucose (mg/dL) 59 L 135 H 156 H (70-110) mg/dL 04/22/24 04/22/24 Range/Units 05:11 05:44 Creatinine 1.09 H (0.52-1.04) mg/dL POC Glucose (mg/dL) 153 H (70-110) mg/dL Microbiology - Last 24 Hours (Table) 04/20/24 19:03 Blood Culture - Preliminary Blood 04/20/24 19:18 Blood Culture - Preliminary Blood 04/20/24 16:55 Gram Stain - Preliminary Toe - Left Fifth Diabetes panel 04/22/24 Range/Units 05:11 Creatinine 1.09 H (0.52-1.04) mg/dL Pituitary panel 04/22/24 Range/Units 05:11 Creatinine 1.09 H (0.52-1.04) mg/dL Adrenal panel 04/22/24 Range/Units 05:11 Creatinine 1.09 H (0.52-1.04) mg/dL - Imaging Comments: Left foot x-ray reports air producing infection and osteomyelitis difficult to exclude. See above. X-ray independently reviewed by Dr. Haines no concerns for air Assessment and Plan Assessment: 1. Infected left fifth toe amputation site 2. Left fifth toe amputation 03/28/2024 for gangrene 3. Diabetes mellitus Plan: 1. Continue symptomatic and supportive care 2. Continue IV antibiotics per recommendations from infectious disease 3. Hold Plavix may continue aspirin 4. Patient scheduled for left fifth toe amputation site debridement and deep tissue cultures 04/24/2024 5. Daily wet-to-dry dressing 6. Rest of medical management per primary medical team Thank you for this consultation, we will continue to follow The impression and plan of care has been dictated as directed. I performed a history and examination of this patient, discussed the same with the dictator. I agree with the dictator's note ,documented as a scribe. Any additional findings or plans will be noted.
--- NOTE | 2024-04-22 16:18 | P.PN ---
Progress Note - Text Progress Note Date: 04/22/24 Chief Complaint: Left foot infection Patient is a 58-year-old female with known history of coronary disease status post stent placement, diabetes type 2 insulin-dependent, hypertension, asthma and history of retinitis pigmentosa, anxiety 03/05/2024: CT angiogram of the abdomen aorta with runoff showed heavily calcified bilateral lower extremity arterial vasculature involving the superficial femoral arteries and extending inferiorly to the popliteal artery to the feet is limited due to severe atherosclerotic plaque. Patient was discharged from the hospital on March [address] Ledesma. Left toe was felt will probably demarcate. With gangrene. March 28: Left fifth toe ray amputation carried out by Dr. Ledesma. Patient did not return to the office outpatient to see Dr. Ledesma on April 08. There was some odor from the amputation site. Was given 10-day course of Augmentin. Patient now presents with increasing drainage and highly sensitive area of the left foot. No fever no chills. Appetite not too good. Has been using a walker April 22: Sitting at the edge of bed. Seen earlier by Dr. Haines from vascular. Plan for local debridement and deep tissue culture on April 24. Also seen by ID. Patient IV cefepime and vancomycin. And Flagyl. Eating 100% Active Medications Acetaminophen (Acetaminophen Tab 325 Mg Tab) 650 mg PO Q6HR PRN PRN Reason: Mild Pain or Fever > 100.5 Last Admin: 04/22/24 08:19 Dose: 650 mg Albuterol Sulfate (Albuterol Hfa Inhaler) 2 puff INHALATION RT-Q6H PRN PRN Reason: Shortness Of Breath Aspirin (Aspirin 81 Mg) 81 mg PO DAILY [facility] Last Admin: 04/22/24 08:19 Dose: 81 mg Atorvastatin Calcium (Atorvastatin 40 Mg Tab) 40 mg PO HS [facility] Last Admin: 04/21/24 21:00 Dose: 40 mg Calcium Carbonate/Glycine (Calcium Carbonate 500 Mg Chewable) 1,000 mg PO Q4HR PRN PRN Reason: Dyspepsia Enoxaparin Sodium (Enoxaparin 40 Mg/0.4 Ml Syringe) 40 mg SQ DAILY [facility] Last Admin: 04/22/24 08:20 Dose: 40 mg Lisinopril/HCTZ (Lisinopril-Hctz 20-25 Mg 1 Each Tab) 1 each PO DAILY [facility] Last Admin: 04/22/24 08:20 Dose: 1 each Hydromorphone HCl (Hydromorphone 0.5 Mg/0.5 Ml Syringe) 0.5 mg IVP Q3HR PRN PRN Reason: Moderate Pain (Scale 4 to 6) Hydromorphone HCl (Hydromorphone 1 Mg/Ml 1 Ml Syringe) 1 mg IVP Q3HR PRN PRN Reason: Severe Pain (Scale 7 to 10) Vancomycin HCl 1,500 mg/ (Sodium Chloride) 500 mls @ 167 mls/hr IVPB Q16H [facility] Last Admin: 04/22/24 06:26 Dose: 167 mls/hr Sodium Chloride (Saline 0.9%) 1,000 mls @ 75 mls/hr IV .[id number] [facility] Last Admin: 04/22/24 12:34 Dose: 75 mls/hr Cefepime HCl 2 gm/ Sodium (Chloride) 100 mls @ 25 mls/hr IVPB Q12H [facility]; P rotocol Last Admin: 04/22/24 06:26 Dose: 25 mls/hr Insulin Aspart (Insulin Aspart (Novolog) 100 Unit/Ml Vial) 0 unit SQ ACHS [facility]; Protocol Last Admin: 04/22/24 12:28 Dose: 3 unit Insulin Detemir (Insulin Detemir (Levemir) 100 Unit/Ml Syr) 30 unit SQ HS [facility] Last Admin: 04/21/24 21:01 Dose: 30 unit Insulin Human Regular (Insulin Regular 100 Unit/Ml Vial (Iv)) 30 unit SQ BID [facility] Last Admin: 04/22/24 08:21 Dose: 30 unit Lactulose (Lactulose 20 Gm/30 Ml Cup) 20 gm PO DAILY PRN PRN Reason: Constipation Lorazepam (Lorazepam 0.5 Mg Tab) 0.5 mg PO Q6HR PRN PRN Reason: Anxiety Melatonin (Melatonin 3 Mg Tablet) 3 mg PO HS PRN PRN Reason: Insomnia Metoprolol Tartrate (Metoprolol Tartrate 50 Mg Tab) 50 mg PO BID [facility] Last Admin: 04/22/24 08:19 Dose: 50 mg Metronidazole (Metronidazole 500 Mg Tab) 500 mg PO TID [facility]; Protocol Last Admin: 04/22/24 15:33 Dose: 500 mg Miscellaneous Information (Vancomycin Trough Due 1 Each Misc) 0 each MISCELLANE DIRECTED ONE Stop: 04/22/24 20:01 Naloxone HCl (Naloxone 0.4 Mg/Ml 1 Ml Vial) 0.2 mg IV Q2M PRN PRN Reason: Opioid Reversal Ondansetron HCl (Ondansetron 4 Mg/2 Ml Vial) 4 mg IVP Q8HR PRN PRN Reason: Nausea And Vomiting Social history: Lives alone. No alcohol. Patient smoked 1 pack a day from 1983 through 9897. On examination: VITAL SIGNS: 98.4, 83, 17, 162 897, 98% room air GENERAL APPEARANCE: Edge of the bed, comfortable HEENT: Normal external appearance of nose and ear. Oral cavity normal EYES: Pupils equal. Conjunctiva normal. NECK: JVD not raised. Mass not palpable. RESPIRATORY: Respiratory effort normal. Lungs clear to auscultation. CARDIOVASCULAR: First and second sounds normal. No edema. ABDOMEN: Soft. Liver and spleen not palpable. No tenderness. No mass palpable. PSYCHIATRY: Alert and oriented x3. Mood and affect normal. EXTREMITIES: Left foot in a dressing INVESTIGATIONS, reviewed in the clinical context: April 21: White count 10.2 hemoglobin 8.8 platelets 404 April 20: Sodium 132 potassium 5.3 BUN 26 creatinine 1.0 Previous testing Hemoglobin 8.[address]ogram: [February 2022] heavily calcified bilateral lower extremity arterial vasculature involving the superficial femoral arteries. Extending inferiorly. Extending into the femoral artery then is limited due to severe atherosclerotic plaque. Multiple areas of high-grade stenosis. Assessment and plan: -Acute left fifth toe dry gangrene and diabetic foot infection, secondary to diabetes and PAD, leading to left fifth toe amputation ray on March [address] Ledesma Return to see Dr. Ledesma in the office on April 08 with some drainage and being to have an order follow-up. Discharged on 10 days of Augmentin. Now presents with worsening local area with drainage and odor increased yesterday. On IV vancomycin. IV cefepime. P.o. Flagyl-followed by ID Seen by Dr. Haines. For local debridement on April 24. -Severe peripheral arterial disease As per CT angiogram. Aspirin, Plavix held for now in case of surgical intervention Lipitor 40 mg nightly -Diabetes type 2 insulin-dependent uncontrolled A1c level 9.6 Levemir, Humulin R. Accu-Cheks with sliding scale insulin -Iron deficiency anemia -Coronary disease with history of stent placement Plavix-hold for now in case of surgical intervention. Aspirin-resumed. Lipitor added -Essential hypertension Lopressor 50 mg twice daily. 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 6 Weight loss measures -Anxiety -Full code Discussed with patient. Continue antibiotics. Past Medical History Past Medical History: Asthma, Blood Disorder, Coronary Artery Disease (CAD), Diabetes Mellitus, Eye Disorder, GERD/Reflux, Hyperlipidemia, Hypertension, Myocardial Infarction ([place]), Pneumonia, Skin Disorder, Vascular Disorder Additional Past Medical History / Comment(s): Type II diabetic IDDM. retinitis pigmentosa (losing peripheral vision), Hx of cellulitis lt foot March 03, 2024. Circulation issues to lt leg-recent February 2024. IBD. Recent hospitalization @[facility] February-pt states she was anemic. States Hgb at discharge was 8.4. Pt states she had re-draw last week @[facility] out pt lab and it was Hgb was 9.6. She states she was put on Multivitamin. Last Myocardial Infarction Date:: 05/2015 History of Any Multi-Drug Resistant Organisms: None Reported Past Surgical History: Heart Catheterization, Heart Catheterization With Stent Additional Past Surgical History / Comment(s): boil under armpit (2000) Cardiac stent x3. Stent to lt leg March 07, 2024. Past Anesthesia/Blood Transfusion Reactions: No Reported Reaction Additional Past Anesthesia/Blood Transfusion Reaction / Comment(s): No hx of blood transfusion. Date of Last Stent Placement:: 05/30/2015 Past Psychological History: Anxiety Smoking Status: Former smoker Past Alcohol Use History: None Reported Past Drug Use History: None Reported
[2024-04-22 16:42] LABS: Glucose,Whole Blood 219 mg/dL (70-110)
--- NOTE | 2024-04-22 18:14 | P.PN ---
Subjective Progress Note Date: 04/22/24 Principal diagnosis: Left diabetic foot ulcer/for surgical infection Patient is a 58-year-old female with a past medical history significant for diabetes mellitus hypertension hyperlipidemia NE recently admitted to hospital with back left fifth toe gangrene diabetic foot infection in this patient who is status post left fifth toe amputation on 03/29/2024, presenting back to the hospital worsening wound to the left fifth toe amputation site with some discoloration. On today's evaluation that is 04/22/2024, Patient is afebrile patient is currently on room air and denies having any shortness of breath, the patient denies any chest pain or cough, the patient denies any nausea vomiting did not have any abdominal pain and no diarrhea, patient denies any worsening pain to the right foot wound. Creatinine 1.09 cultures currently pending Objective - Vital Signs Vital signs: Vital Signs Temp 98.0 F 04/22/24 07:05 Pulse 78 04/22/24 07:05 Resp 18 04/22/24 07:05 BP 160/72 04/22/24 07:05 Pulse Ox 97 04/22/24 07:05 FiO2 Intake & Output 04/21/24 04/22/24 04/22/24 18:59 06:59 18:59 Intake Total 120 Balance 120 Weight 83.461 kg Intake: Oral 120 Other: Voiding Method Toilet # Voids 1 2 - Exam GENERAL DESCRIPTION: Middle-aged female lying in bed in no distress RESPIRATORY SYSTEM: Unlabored breathing , decreased breath sounds at bases HEART: S1 S2 regular rate and rhythm , ABDOMEN: Soft , no tenderness EXTREMITIES: Left foot is currently dressed no drainage on the dressing - Labs CBC & Chem 7: 04/21/24 05:33 04/22/24 05:11 Labs: Abnormal Lab Results - Last 24 Hours (Table) 04/21/24 04/21/24 04/22/24 Range/Units 16:42 20:52 01:58 Creatinine (0.52-1.04) mg/dL POC Glucose (mg/dL) 59 L 135 H 156 H (70-110) mg/dL 04/22/24 04/22/24 04/22/24 Range/Units 05:11 05:44 11:44 Creatinine 1.09 H (0.52-1.04) mg/dL POC Glucose (mg/dL) 153 H 152 H (70-110) mg/dL Microbiology - Last 24 Hours (Table) 04/20/24 16:55 Gram Stain - Preliminary Toe - Left Fifth Wound Culture - Preliminary Escherichia coli 04/20/24 19:03 Blood Culture - Preliminary Blood 04/20/24 19:18 Blood Culture - Preliminary Blood Assessment and Plan (1) Left foot infection Current Visit: Yes Status: Acute Code(s): L08.9 - LOCAL INFECTION OF THE SKIN AND SUBCUTANEOUS TISSUE, UNSP SNOMED Code(s): 706032787 (2) Allergy to multiple antibiotics Current Visit: No Status: Acute Code(s): Z88.1 - ALLERGY STATUS TO OTHER ANT IBIOTIC AGENTS SNOMED Code(s): 396244264 (3) Cellulitis of left foot Current Visit: No Status: Acute Code(s): L03.116 - CELLULITIS OF LEFT LOWER LIMB SNOMED Code(s): 91679243919924648 Plan: 1patient with a left fifth toe diabetic foot wound and this patient was status post amputation of the left fifth toe now with evidence of nonhealing wound to the left fifth amputation site and some gangrene failing outpatient oral Augmentin therapy we will need to cover for resistant gram-positive as well as gram-negative pathogen. 2patient has been evaluated by vascular surgery and planning for debridement of the wound on 04/22/2024 3continue with the vancomycin along with cefepime and Flagyl while waiting for the culture to finalize Dictation was produced using [employer] dictation software. please excuse any grammatical, word or spelling errors. Time with Patient: Less than 30
[2024-04-22 20:41] LABS: Glucose,Whole Blood 262 mg/dL (70-110)
[2024-04-22] MEDS: VANCOMYCIN TROUGH DUE 1 EACH MISC MISCELLANE ONE (21:03)
[2024-04-22] MEDS: ONDANSETRON 4 MG/2 ML VIAL IVP PRN (21:33)
[2024-04-22 21:45] LABS: Glucose,Whole Blood 249 mg/dL (70-110)
[2024-04-23 04:02] LABS: Basophils % (A) 0 %; Eosinophils # (A) 0.2 k/uL (0-0.7); Eosinophils % (A) 2 %; HCT 29.6 % (34.0-46.0); Hypochromasia Marked; Lymphocytes # (A) 1.6 k/uL (1.0-4.8); Lymphocytes % (A) 16 %; MCHC 30.3 g/dL (31.0-37.0); MCV 85.9 fL (80.0-100.0); Mean Platelet Volume 8.2; Monocytes # (A) 0.5 k/uL (0-1.0); Monocytes % (A) 5 %; Neutrophils # (A) 7.5 k/uL (1.3-7.7); Neutrophils % (A) 76 %; Platelet Count 374 k/uL (150-450); RBC 3.45 m/uL (3.80-5.40); RDW 14.2 % (11.5-15.5); WBC 9.9 k/uL (3.8-10.6)
[2024-04-23 04:06] LABS: Potassium 4.5 mmol/L (3.5-5.1)
[2024-04-23 04:08] LABS: African American GFR (CKD) 70 (>60 ml/min/1.73 sqM); Anion Gap 10 mmol/L; Blood Urea Nitrogen 21 mg/dL (7-17); Calcium 9.1 mg/dL (8.4-10.2); Carbon Dioxide 21 mmol/L (22-30); Chloride 106 mmol/L (98-107); Glucose 155 mg/dL (74-99); Non-African American GFR(CKD) 61 (>60 ml/min/1.73 sqM); Sodium 137 mmol/L (137-145)
[2024-04-23 06:12] LABS: Glucose,Whole Blood 173 mg/dL (70-110)
[2024-04-23] MEDS: HYDROmorphone 0.5 MG/0.5 ML SYRINGE IVP PRN (09:09)
--- NOTE | 2024-04-23 10:14 | P.PN ---
Subjective Progress Note Date: 04/23/24 Principal diagnosis: Nonhealing, infected left foot wound Patient seen and examined today as a follow-up. She remains afebrile. She reports that she is having some stinging/burning in her left foot. No acute changes through the night. She is scheduled for left foot debridement tomorrow. She remains on IV vancomycin and cefepime. Objective - Vital Signs Vital signs: Vital Signs Temp 98.8 F 04/23/24 07:20 Pulse 81 04/23/24 07:20 Resp 17 04/23/24 07:20 BP 144/79 04/23/24 07:20 Pulse Ox 96 04/23/24 07:20 FiO2 Intake & Output 04/22/24 04/23/24 04/23/24 18:59 06:59 18:59 Intake Total 120 1067 240 Balance 120 1067 240 Intake: Intake, IV Titration 1067 Amount Sodium Chloride 0.9% 1, 900 000 ml @ 75 mls/hr IV . [id number] [facility] Rx#:[id number] Vancomycin 1,500 mg In 167 Sodium Chloride 0.9% 500 ml 500 ml @ 167 mls/hr IVPB Q16H [facility] Rx#: [id number] Oral 120 240 Other: Voiding Method Toilet Toilet Toilet # Voids 3 1 - Exam General appearance: The patient is alert, oriented, appears in no acute distress. HET: Head is normocephalic and atraumatic. Neck: Supple. Heart: Regular. Lungs: Equal expansion, normal respiratory effort. Abdomen: Soft, nondistended. Extremities: eft foot fifth toe amputation site with eschar, purulent drainage. Palpable DP pulse. Neurological: No focal deficits. Strength and sensation are grossly intact. - Labs CBC & Chem 7: 04/23/24 03:11 04/23/24 03:11 Labs: Abnormal Lab Results - Last 24 Hours (Table) 04/22/24 04/22/24 04/22/24 Range/Units 11:44 16:40 20:40 RBC (3.80-5.40) m/uL Hgb (11.4-16.0) gm/dL Hct (34.0-46.0) % MCHC (31.0-37.0) g/dL Carbon Dioxide (22-30) mmol/L BUN (7-17) mg/dL Glucose (74-99) mg/dL POC Glucose (mg/dL) 152 H 219 H 262 H (70-110) mg/dL 04/22/24 04/23/24 04/23/24 Range/Units 21:34 03:11 03:11 RBC 3.45 L (3.80-5.40) m/uL Hgb 9.0 L D (11.4-16.0) gm/dL Hct 29.6 L (34.0-46.0) % MCHC 30.3 L (31.0-37.0) g/dL Carbon Dioxide 21 L (22-30) mmol/L BUN 21 H (7-17) mg/dL Glucose 155 H (74-99) mg/dL POC Glucose (mg/dL) 249 H (70-110) mg/dL 04/23/24 Range/Units 06:10 RBC (3.80-5.40) m/uL Hgb (11.4-16.0) gm/dL Hct (34.0-46.0) % MCHC (31.0-37.0) g/dL Carbon Dioxide (22-30) mmol/L BUN (7-17) mg/dL Glucose (74-99) mg/dL POC Glucose (mg/dL) 173 H (70-110) mg/dL Microbiology - Last 24 Hours (Table) 04/20/24 16:55 Gram Stain - Final Toe - Left Fifth Wound Culture - Final Escherichia coli 04/20/24 19:03 Blood Culture - Preliminary Blood 04/20/24 19:18 Blood Culture - Preliminary Blood Assessment and Plan Assessment: 1. Infected left fifth toe amputation site 2. Left fifth toe amputation 03/28/2024 for gangrene 3. Diabetes mellitus Plan: 1. Continue symptomatic and supportive care 2. Continue IV antibiotics per recommendations from infectious disease 3. Hold Plavix may continue aspirin 4. Patient scheduled for left fifth toe amputation site debridement and deep tissue cultures 04/24/2024 5. Daily wet-to-dry dressing 6. Hold Lovenox 04/24/2024 for surgery 7. N.p.o. after midnight 8. Rest of medical management per primary medical team Thank you for this consultation, we will continue to follow The impression and plan of care has been dictated as directed. Dr. Ledesma I performed a history and examination of this patient, discussed the same with the dictator. I agree with the dictator's note ,documented as a scribe. Any additional findings or plans will be noted.
[2024-04-23 11:41] LABS: Glucose,Whole Blood 79 mg/dL (70-110)
--- NOTE | 2024-04-23 15:42 | P.PN ---
Progress Note - Text Progress Note Date: 04/23/24 Chief Complaint: Left foot infection Patient is a 58-year-old female with known history of coronary disease status post stent placement, diabetes type 2 insulin-dependent, hypertension, asthma and history of retinitis pigmentosa, anxiety 03/05/2024: CT angiogram of the abdomen aorta with runoff showed heavily calcified bilateral lower extremity arterial vasculature involving the superficial femoral arteries and extending inferiorly to the popliteal artery to the feet is limited due to severe atherosclerotic plaque. Patient was discharged from the hospital on March [address] Ledesma. Left toe was felt will probably demarcate. With gangrene. March 28: Left fifth toe ray amputation carried out by Dr. Ledesma. Patient did not return to the office outpatient to see Dr. Ledesma on April 08. There was some odor from the amputation site. Was given 10-day course of Augmentin. Patient now presents with increasing drainage and highly sensitive area of the left foot. No fever no chills. Appetite not too good. Has been using a walker April 22: Sitting at the edge of bed. Seen earlier by Dr. Haines from vascular. Plan for local debridement and deep tissue culture on April 24. Also seen by ID. Patient IV cefepime and vancomycin. And Flagyl. Eating 100% April 23: Resting in bed. Pending debridement of wound tomorrow. Getting IV cefepime IV vancomycin. Wound culture growing E. coli. # That Active Medications Acetaminophen (Acetaminophen Tab 325 Mg Tab) 650 mg PO Q6HR PRN PRN Reason: Mild Pain or Fever > 100.5 Last Admin: 04/23/24 06:36 Dose: 650 mg Albuterol Sulfate (Albuterol Hfa Inhaler) 2 puff INHALATION RT-Q6H PRN PRN Reason: Shortness Of Breath Aspirin (Aspirin 81 Mg) 81 mg PO DAILY [facility] Last Admin: 04/23/24 08:15 Dose: 81 mg Calcium Carbonate/Glycine (Calcium Carbonate 500 Mg Chewable) 1,000 mg PO Q4HR PRN PRN Reason: Dyspepsia Enoxaparin Sodium (Enoxaparin 40 Mg/0.4 Ml Syringe) 40 mg SQ DAILY [facility] Last Admin: 04/23/24 08:15 Dose: 40 mg Lisinopril/HCTZ (Lisinopril-Hctz 20-25 Mg 1 Each Tab) 1 each PO DAILY [facility] Last Admin: 04/23/24 08:15 Dose: 1 each Hydromorphone HCl (Hydromorphone 0.5 Mg/0.5 Ml Syringe) 0.5 mg IVP Q3HR PRN PRN Reason: Moderate Pain (Scale 4 to 6) Last Admin: 04/23/24 09:09 Dose: 0.5 mg Hydromorphone HCl (Hydromorphone 1 Mg/Ml 1 Ml Syringe) 1 mg IVP Q3HR PRN PRN Reason: Severe Pain (Scale 7 to 10) Vancomycin HCl 1,500 mg/ (Sodium Chloride) 500 mls @ 167 mls/hr IVPB Q16H [facility] Last Admin: 04/23/24 12:06 Dose: 167 mls/hr Sodium Chloride (Saline 0.9%) 1,000 mls @ 75 mls/hr IV .[id number] [facility] Last Admin: 04/23/24 15:13 Dose: 75 mls/hr Cefepime HCl 2 gm/ Sodium (Chloride) 100 mls @ 25 mls/hr IVPB Q12H [facility]; Protocol Last Admin: 04/23/24 06:36 Dose: 25 mls/hr Insulin Aspart (Insulin Aspart (Novolog) 100 Unit/Ml Vial) 0 unit SQ ACHS [facility]; Protocol Last Admin: 04/23/24 11:47 Dose: Not Given Insulin Detemir (Insulin Detemir (Levemir) 100 Unit/Ml Syr) 30 unit SQ HS [facility] Last Admin: 04/22/24 21:37 Dose: 30 unit Insulin Human Regular (Insulin Regular 100 Unit/Ml Vial (Iv)) 30 unit SQ BID [facility] Last Admin: 04/23/24 08:16 Dose: 30 unit Lactulose (Lactulose 20 Gm/30 Ml Cup) 20 gm PO DAILY PRN PRN Reason: Constipation Lorazepam (Lorazepam 0.5 Mg Tab) 0.5 mg PO Q6HR PRN PRN Reason: Anxiety Melatonin (Melatonin 3 Mg Tablet) 3 mg PO HS PRN PRN Reason: Insomnia Metoprolol Tartrate (Metoprolol Tartrate 50 Mg Tab) 50 mg PO BID [facility] Last Admin: 04/23/24 08:15 Dose: 50 mg Metronidazole (Metronidazole 500 Mg Tab) 500 mg PO TID [facility]; Protocol Last Admin: 04/23/24 15:12 Dose: 500 mg Miscellaneous Information (Vancomycin Trough Due 1 Each Misc) 0 each MISCELLANE DIRECTED ONE Stop: 04/25/24 12:01 Naloxone HCl (Naloxone 0.4 Mg/Ml 1 Ml Vial) 0.2 mg IV Q2M PRN PRN Reason: Opioid Reversal Ondansetron HCl (Ondansetron 4 Mg/2 Ml Vial) 4 mg IVP Q8HR PRN PRN Reason: Nausea And Vomiting Last Admin: 04/22/24 21:33 Dose: 4 mg Social history: Lives alone. No alcohol. Patient smoked 1 pack a day from 1983 through 9897. On examination: VITAL SIGNS: 98.1, 73, 20, 130/57, 95% room air GENERAL APPEARANCE: Resting in bed HEENT: Normal external appearance of nose and ear. Oral cavity normal EYES: Pupils equal. Conjunctiva normal. NECK: JVD not raised. Mass not palpable. RESPIRATORY: Respiratory effort normal. Lungs clear to auscultation. CARDIOVASCULAR: First and second sounds normal. No edema. ABDOMEN: Soft. Liver and spleen not palpable. No tenderness. No mass palpable. PSYCHIATRY: Alert and oriented x3. Mood and affect normal. EXTREMITIES: Left foot in a dressing INVESTIGATIONS, reviewed in the clinical context: April 23: White count 9.9 hemoglobin 9 potassium 4.5 creatinine 1.01 April 21: White count 10.2 hemoglobin 8.8 platelets 404 April 20: Sodium 132 potassium 5.3 BUN 26 creatinine 1.0 Previous testing Hemoglobin 8.[address]ogram: [February 2022] heavily calcified bilateral lower extremity arterial vasculature involving the superficial femoral arteries. Extending inferiorly. Extending into the femoral artery then is limited due to severe atherosclerotic plaque. Multiple areas of high-grade stenosis. Assessment and plan: -Acute left fifth toe dry gangrene and diabetic foot infection, secondary to diabetes and PAD, leading to left fifth toe amputation ray on March [address] Ledesma Return to see Dr. Ledesma in the office on April 08 with some drainage and being to have an order follow-up. Discharged on 10 days of Augmentin. Now presents with worsening local area with drainage and odor increased yesterday. On IV vancomycin. IV cefepime. P.o. Flagyl-followed by ID Seen by Dr. Haines. For local debridement on April 24. -Severe peripheral arterial disease As per CT angiogram. Aspirin, Plavix held for now in case of surgical intervention Lipitor 40 mg nightly -Diabetes type 2 insulin-dependent uncontrolled A1c level 9.6 Levemir, Humulin R. Accu-Cheks with sliding scale insulin -Iron deficiency anemia -Coronary disease with history of stent placement Plavix-hold for now in case of surgical intervention. Aspirin-resumed. Lipitor added -Essential hypertension Lopressor 50 mg twice daily. 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 6 Weight loss measures -Anxiety -Full code Discussed. Continue current medications Past Medical History Past Medical History: Asthma, Blood Disorder, Coronary Artery Disease (CAD), Diabetes Mellitus, Eye Disorder, GERD/Reflux, Hyperlipidemia, Hypertension, Myocardial Infarction ([place]), Pneumonia, Skin Disorder, Vascular Disorder Additional Past Medical History / Comment(s): Type II diabetic IDDM. retinitis pigmentosa (losing peripheral vision), Hx of cellulitis lt foot March 03, 2024. Circulation issues to lt leg-recent February 2024. IBD. Recent hospitalization @[facility] February-pt states she was anemic. States Hgb at discharge was 8.4. Pt states she had re-draw last week @[facility] out pt lab and it was Hgb was 9.6. She states she was put on Multivitamin. Last Myocardial Infarction Date:: 05/2015 History of Any Multi-Drug Resistant Organisms: None Reported Past Surgical History: Heart Catheterization, Heart Catheterization With Stent Additional Past Surgical History / Comment(s): boil under armpit (2000) Cardiac stent x3. Stent to lt leg March 07, 2024. Past Anesthesia/Blood Transfusion Reactions: No Reported Reaction Additional Past Anesthesia/Blood Transfusion Reaction / Comment(s): No hx of blood transfusion. Date of Last Stent Placement:: 05/30/2015 Past Psychological History: Anxiety Smoking Status: Former smoker Past Alcohol Use History: None Reported Past Drug Use History: None Reported
[2024-04-23 16:48] LABS: Glucose,Whole Blood 234 mg/dL (70-110)
--- NOTE | 2024-04-23 17:06 | P.PN ---
Subjective Progress Note Date: 04/23/24 Principal diagnosis: Left diabetic foot ulcer/for surgical infection Patient is a 58-year-old female with a past medical history significant for diabetes mellitus hypertension hyperlipidemia ND recently admitted to hospital with back left fifth toe gangrene diabetic foot infection in this patient who is status post left fifth toe amputation on 03/29/2024, presenting back to the hospital worsening wound to the left fifth toe amputation site with some discoloration. On today's evaluation that is 04/23/2024, patient has been afebrile, patient is breathing comfortably and is currently on room air, patient denies having any significant cough no chest pain shortness of breath, patient denies nausea vomiting or diarrhea and no abdominal pain, denies any worsening pain to the left foot wound. Patient white count is 9.9 creatinine 1.01 local culture with ESBL E. coli Objective - Vital Signs Vital signs: Vital Signs Temp 98.1 F 04/23/24 14:04 Pulse 73 04/23/24 14:04 Resp 20 04/23/24 14:04 BP 130/57 04/23/24 14:04 Pulse Ox 95 04/23/24 14:04 FiO2 Intake & Output 04/22/24 04/23/24 04/23/24 18:59 06:59 18:59 Intake Total 120 1067 240 Balance 120 1067 240 Intake: Intake, IV Titration 1067 Amount Sodium Chloride 0.9% 1, 900 000 ml @ 75 mls/hr IV . [id number] [facility] Rx#:[id number] Vancomycin 1,500 mg In 167 Sodium Chloride 0.9% 500 ml 500 ml @ 167 mls/hr IVPB Q16H [facility] Rx#: [id number] Oral 120 240 Other: Voiding Method Toilet Toilet Toilet # Voids 3 1 - Exam GENERAL DESCRIPTION: Middle-aged female lying in bed in no distress RESPIRATORY SYSTEM: Unlabored breathing , decreased breath sounds at bases HEART: S1 S2 regular rate and rhythm , ABDOMEN: Soft , no tenderness EXTREMITIES: Left foot is currently dressed no drainage on the dressing - Labs CBC & Chem 7: 04/23/24 03:11 04/23/24 03:11 Labs: Abnormal Lab Results - Last 24 Hours (Table) 04/22/24 04/22/24 04/23/24 Range/Units 20:40 21:34 03:11 RBC 3.45 L (3.80-5.40) m/uL Hgb 9.0 L D (11.4-16.0) gm/dL Hct 29.6 L (34.0-46.0) % MCHC 30.3 L (31.0-37.0) g/dL Carbon Dioxide (22-30) mmol/L BUN (7-17) mg/dL Glucose (74-99) mg/dL POC Glucose (mg/dL) 262 H 249 H (70-110) mg/dL 04/23/24 04/23/24 04/23/24 Range/Units 03:11 06:10 16:47 RBC (3.80-5.40) m/uL Hgb (11.4-16.0) gm/dL Hct (34.0-46.0) % MCHC (31.0-37.0) g/dL Carbon Dioxide 21 L (22-30) mmol/L BUN 21 H (7-17) mg/dL Glucose 155 H (74-99) mg/dL POC Glucose (mg/dL) 173 H 234 H (70-110) mg/dL Microbiology - Last 24 Hours (Table) 04/20/24 16:55 Anaerobic Culture - Preliminary Toe - Left Fifth 04/20/24 16:55 Gram Stain - Final Toe - Left Fifth Wound Culture - Final Escherichia coli 04/20/24 19:03 Blood Culture - Preliminary Blood 04/20/24 19:18 Blood Culture - Preliminary Blood Assessment and Plan (1) Left foot infection Current Visit: Yes Status: Acute Code(s): L08.9 - LOCAL INFECTION OF THE SKIN AND SUBCUTANEOUS TISSUE, UNSP SNOMED Code(s): 030133011 (2) Allergy to multiple antibiotics Current Visit: No Status: Acute Code(s): Z88.1 - ALLERGY STATUS TO OTHER ANTIBIOTIC AGENTS SNOMED Code(s): 852988829 (3) Cellulitis of left foot Current Visit: No Status: Acute Code(s): L03.116 - CELLULITIS OF LEFT LOWER LIMB SNOMED Code(s): 12719488438783147 Plan: 1patient with a left fifth toe diabetic foot wound and this patient was status post amputation of the left fifth toe now with evidence of nonhealing wound to the left fifth amputation site and some gangrene failing outpatient oral Augmentin therapy we will need to cover for resistant gram-positive as well as gram-negative pathogen. 2patient has been evaluated by vascular surgery and planning for debridement of the wound on 04/22/2024 3patient initial culture currently growing ESBL E. coli we will switch cefepime and Flagyl to Invanz continue vancomycin awaiting for deep culture at the time of surgery hopefully tomorrow that will determine her discharge antibiotics Dictation was produced using [employer] dictation software. please excuse any grammatical, word or spelling errors. Time with Patient: Less than 30
[2024-04-23] MEDS: ERTAPENEM 1 GM in SODIUM CHLORIDE 0.9% 50 ML IVPB SCH (18:03)
[2024-04-23 20:40] LABS: Glucose,Whole Blood 263 mg/dL (70-110)
[2024-04-23] MEDS: CALCIUM CARBONATE 500 MG CHEWABLE PO PRN (22:32)
[2024-04-24 06:06] LABS: Glucose,Whole Blood 233 mg/dL (70-110)
[2024-04-24] MEDS ORDERED: GABAPENTIN 100 MG CAP PO SCH (09:30)
[2024-04-24 11:21] LABS: Glucose,Whole Blood 197 mg/dL (70-110)
[2024-04-24 13:16] LABS: African American GFR (CKD) 81 (>60 ml/min/1.73 sqM); Anion Gap 7 mmol/L; Blood Urea Nitrogen 18 mg/dL (7-17); Calcium 9.1 mg/dL (8.4-10.2); Carbon Dioxide 23 mmol/L (22-30); Chloride 106 mmol/L (98-107); Glucose 186 mg/dL (74-99); Non-African American GFR(CKD) 70 (>60 ml/min/1.73 sqM); Potassium 4.7 mmol/L (3.5-5.1); Sodium 136 mmol/L (137-145)
[2024-04-24] MEDS: IV FLUID CONTINUATION 1,000 ML IV ONE (13:37)
[2024-04-24 13:47] LABS: Basophils % (A) 0 %; Eosinophils # (A) 0.1 k/uL (0-0.7); Eosinophils % (A) 1 %; HCT 29.7 % (34.0-46.0); HGB 8.8 gm/dL (11.4-16.0); Hypochromasia Marked; Lymphocytes % (A) 9 %; MCH 25.5 pg (25.0-35.0); MCHC 29.7 g/dL (31.0-37.0); MCV 85.8 fL (80.0-100.0); Mean Platelet Volume 7.5; Monocytes # (A) 0.5 k/uL (0-1.0); Monocytes % (A) 5 %; Neutrophils # (A) 9.1 k/uL (1.3-7.7); Neutrophils % (A) 84 %; Platelet Count 334 k/uL (150-450); RBC 3.46 m/uL (3.80-5.40); RDW 14.7 % (11.5-15.5); WBC 10.8 k/uL (3.8-10.6)
[2024-04-24 13:54] LABS: Glucose,Whole Blood 191 mg/dL (70-110)
[2024-04-24] MEDS: FAMOTIDINE 20 MG/2 ML VIAL IV STA (13:59)
[2024-04-24] MEDS: LACTATED RINGERS 1,000 ML BAG IV STA (14:13)
[2024-04-24] MEDS ORDERED: LABETALOL 5 MG/ML VIAL MDV ONE (14:17)
[2024-04-24] MEDS ORDERED: fentaNYL (PF) 50 MCG/ML 2 ML AMP ONE (14:17)
[2024-04-24] MEDS ORDERED: MIDAZOLAM 2 MG/2 ML VIAL ONE (14:17)
[2024-04-24] MEDS ORDERED: PROPOFOL 10 MG/ML 20 ML VIAL IV ONE (14:17)
[2024-04-24] MEDS ORDERED: KETAMINE HCL IN 0.9 % NACL 50 MG/5 ML SYRINGE ONE (14:17)
[2024-04-24] MEDS ORDERED: SUCCINYLCHOLINE CHLORIDE 200 MG/10 ML VIAL IV ONE (14:17)
[2024-04-24] MEDS ORDERED: DEXAMETHASONE SOD PHOSPHATE 10 MG/ML 1 ML VIAL ONE (14:17)
[2024-04-24] MEDS: IV FLUID CONTINUATION 600 ML IV ONE (15:02)
--- NOTE | 2024-04-24 15:04 | P.PN ---
Progress Note - Text Progress Note Date: 04/24/24 Patient was taken to the operative suite for planned left fifth toe amputation site debridement. Dressing had been removed and at the time of initiation of anesthesia, patient had hypoxic event and rapid decline with bradycardia and subsequent loss of pulses. Initiation of CPR and intubation was performed rapidly. After appropriate airway and CPR pt had ROSC. At that point the surgery was canceled. The patient was subsequently then extubated in the OR and transported to recovery. She is awake and alert. She is conversant appropriately. Will make further plans for further operative debridement pending clinical course
[2024-04-24 15:26] LABS: Glucose,Whole Blood 249 mg/dL (70-110)
[2024-04-24] MEDS: INSULIN ASPART (NovoLOG) 100 UNIT/ML VIAL SQ ONE (15:34)
[2024-04-24] MEDS: hydrALAZINE HCL 20 MG/ML 1 ML VIAL IVP STA (15:35)
--- NOTE | 2024-04-24 17:21 | P.PN ---
Subjective Progress Note Date: 04/24/24 Principal diagnosis: Left diabetic foot ulcer/for surgical infection Patient is a 58-year-old female with a past medical history significant for diabetes mellitus hypertension hyperlipidemia [place] recently admitted to hospital with back left fifth toe gangrene diabetic foot infection in this patient who is status post left fifth toe amputation on 03/29/2024, presenting back to the hospital worsening wound to the left fifth toe amputation site with some discoloration. On today's evaluation that is 04/24/2024, Patient is afebrile this morning and denies any chills, patient mention breathing comfortably and is currently on room air, patient denies any chest pain occasional cough patient denies any abdominal pain no diarrhea has been complaining of some nausea with Invanz infusion but no vomiting denies any worsening pain to the left foot. Patient did have a white count of 10.8 creatinine 0.90 culture with ESBL E. coli and anaerobes Objective - Vital Signs Vital signs: Vital Signs Temp 97.0 F L 04/24/24 14:56 Pulse 97 04/24/24 14:56 Resp 14 04/24/24 14:56 BP 186/86 04/24/24 14:56 Pulse Ox 95 04/24/24 14:56 FiO2 Intake & Output 04/23/24 04/24/24 04/24/24 18:59 06:59 18:59 Intake Total 240 1067 100 Balance 240 1067 100 Intake: IV 100 Intake, IV Titration 1067 Amount Sodium Chloride 0.9% 1, 900 000 ml @ 75 mls/hr IV . [id number] [facility] Rx#:[id number] Vancomycin 1,500 mg In 167 Sodium Chloride 0.9% 500 ml 500 ml @ 167 mls/hr IVPB Q16H [facility] Rx#: [id number] Oral 240 Other: Voiding Method Toilet Toilet # Voids 3 3 - Exam GENERAL DESCRIPTION: Middle-aged female lying in bed in no distress RESPIRATORY SYSTEM: Unlabored breathing , decreased breath sounds at bases HEART: S1 S2 regular rate and rhythm , ABDOMEN: Soft , no tenderness EXTREMITIES: Left foot is currently dressed no drainage on the dressing - Labs CBC & Chem 7: 04/24/24 12:45 04/24/24 12:45 Labs: Abnormal Lab Results - Last 24 Hours (Table) 04/23/24 04/23/24 04/24/24 Range/Units 16:47 20:39 06:05 WBC (3.8-10.6) k/uL RBC (3.80-5.40) m/uL Hgb (11.4-16.0) gm/dL Hct (34.0-46.0) % MCHC (31.0-37.0) g/dL Neutrophils # (1.3-7.7) k/uL Sodium (137-145) mmol/L BUN (7-17) mg/dL Glucose (74-99) mg/dL POC Glucose (mg/dL) 234 H 263 H 233 H (70-110) mg/dL 04/24/24 04/24/24 04/24/24 Range/Units 11:20 12:45 12:45 WBC 10.8 H (3.8-10.6) k/uL RBC 3.46 L (3.80-5.40) m/uL Hgb 8.8 L (11.4-16.0) gm/dL Hct 29.7 L (34.0-46.0) % MCHC 29.7 L (31.0-37.0) g/dL Neutrophils # 9.1 H (1.3-7.7) k/uL Sodium 136 L (137-145) mmol/L BUN 18 H (7-17) mg/dL Glucose 186 H (74-99) mg/dL POC Glucose (mg/dL) 197 H (70-110) mg/dL 04/24/24 Range/Units 13:53 WBC (3.8-10.6) k/uL RBC (3.80-5.40) m/uL Hgb (11.4-16.0) gm/dL Hct (34.0-46.0) % MCHC (31.0-37.0) g/dL Neutrophils # (1.3-7.7) k/uL Sodium (137-145) mmol/L BUN (7-17) mg/dL Glucose (74-99) mg/dL POC Glucose (mg/dL) 191 H (70-110) mg/dL Microbiology - Last 24 Hours (Table) 04/20/24 19:03 Blood Culture - Preliminary Blood 04/20/24 19:18 Blood Culture - Preliminary Blood 06/22/24 16:55 Anaerobic Culture - Preliminary Toe - Left Fifth Assessment and Plan (1) Left foot infection Current Visit: Yes Status: Acute Code(s): L08.9 - LOCAL INFECTION OF THE SKIN AND SUBCUTANEOUS TISSUE, UNSP SNOMED Code(s): 569614164 (2) Allergy to multiple antibiotics Current Visit: No Status: Acute Code(s): Z88.1 - ALLERGY STATUS TO OTHER ANTIBIOTIC AGENTS SNOMED Code(s): 857283962 (3) Cellulitis of left foot Current Visit: No Status: Acute Code(s): L03.116 - CELLULITIS OF LEFT LOWER LIMB SNOMED Code(s): 95784655685621033 Plan: 1patient with a left fifth toe diabetic foot wound and this patient was status post amputation of the left fifth toe now with evidence of nonhealing wound to the left fifth amputation site and some gangrene failing outpatient oral Augmentin therapy we will need to cover for resistant gram-positive as well as gram-negative pathogen. 2patient has been evaluated by vascular surgery and planning for debridement of the wound scheduled for this afternoon 3patient initial culture currently growing ESBL E. coli as well as anaerobes patient is covered with Invanz may add Zofran if nausea persist Dictation was produced using [employer] dictation software. please excuse any grammatical, word or spelling errors. Time with Patient: Less than 30
[2024-04-24 17:25] LABS: Glucose,Whole Blood 242 mg/dL (70-110)
--- NOTE | 2024-04-24 17:41 | P.PN ---
Progress Note - Text Progress Note Date: 04/24/24 Chief Complaint: Left foot infection Patient is a 58-year-old female with known history of coronary disease status post stent placement, diabetes type 2 insulin-dependent, hypertension, asthma and history of retinitis pigmentosa, anxiety 03/05/2024: CT angiogram of the abdomen aorta with runoff showed heavily calcified bilateral lower extremity arterial vasculature involving the superficial femoral arteries and extending inferiorly to the popliteal artery to the feet is limited due to severe atherosclerotic plaque. Patient was discharged from the hospital on March [address] Ledesma. Left toe was felt will probably demarcate. With gangrene. March 28: Left fifth toe ray amputation carried out by Dr. Ledesma. Patient did not return to the office outpatient to see Dr. Ledesma on April 08. There was some odor from the amputation site. Was given 10-day course of Augmentin. Patient now presents with increasing drainage and highly sensitive area of the left foot. No fever no chills. Appetite not too good. Has been using a walker April 22: Sitting at the edge of bed. Seen earlier by Dr. Haines from vascular. Plan for local debridement and deep tissue culture on April 24. Also seen by ID. Patient IV cefepime and vancomycin. And Flagyl. Eating 100% April 23: Resting in bed. Pending debridement of wound tomorrow. Getting IV cefepime IV vancomycin. Wound culture growing E. coli. April 24: Saw the patient this morning. Resting bed. Pending debridement. On antibiotics. NPO. IV this afternoon I got a call from Dr. Ledesma vascular surgery. Patient had respiratory compromise had to be intubated. Moved to the ICU. Active Medications Acetaminophen (Acetaminophen Tab 325 Mg Tab) 650 mg PO Q6HR PRN PRN Reason: Mild Pain or Fever > 100.5 Last Admin: 04/24/24 09:06 Dose: 650 mg Albuterol Sulfate (Albuterol Hfa Inhaler) 2 puff INHALATION RT-Q6H PRN PRN Reason: Shortness Of Breath Aspirin (Aspirin 81 Mg) 81 mg PO DAILY [facility] Last Admin: 04/24/24 09:05 Dose: 81 mg Calcium Carbonate/Glycine (Calcium Carbonate 500 Mg Chewable) 1,000 mg PO Q4HR PRN PRN Reason: Dyspepsia Last Admin: 04/24/24 09:14 Dose: 1,000 mg Enoxaparin Sodium (Enoxaparin 40 Mg/0.4 Ml Syringe) 40 mg SQ DAILY [facility] Last Admin: 04/23/24 19:22 Dose: Not Given Gabapentin (Gabapentin 100 Mg Cap) 100 mg PO TID [facility] Lisinopril/HCTZ (Lisinopril-Hctz 20-25 Mg 1 Each Tab) 1 each PO DAILY [facility] Last Admin: 04/24/24 09:05 Dose: 1 each Hydromorphone HCl (Hydromorphone 0.5 Mg/0.5 Ml Syringe) 0.5 mg IVP Q3HR PRN PRN Reason: Moderate Pain (Scale 4 to 6) Last Admin: 04/23/24 09:09 Dose: 0.5 mg Hydromorphone HCl (Hydromorphone 1 Mg/Ml 1 Ml Syringe) 1 mg IVP Q3HR PRN PRN Reason: Severe Pain (Scale 7 to 10) Vancomycin HCl 1,500 mg/ (Sodium Chloride) 500 mls @ 167 mls/hr IVPB Q16H [facility] Last Admin: 04/24/24 06:02 Dose: 167 mls/hr Sodium Chloride (Saline 0.9%) 1,000 mls @ 75 mls/hr IV .[id number] [facility] Last Admin: 04/24/24 06:02 Dose: 75 mls/hr Ertapenem 1 gm/ Sodium (Chloride) 50 mls @ 100 mls/hr IVPB DAILY [facility]; Protocol Last Admin: 04/24/24 09:08 Dose: 100 mls/hr Insulin Aspart (Insulin Aspart (Novolog) 100 Unit/Ml Vial) 0 unit SQ ACHS [facility]; Protocol Last Admin: 04/24/24 11:52 Dose: Not Given Insulin Detemir (Insulin Detemir (Levemir) 100 Unit/Ml Syr) 30 unit SQ HS [facility] Last Admin: 04/23/24 21:34 Dose: Not Given Insulin Human Regular (Insulin Regular 100 Unit/Ml Vial (Iv)) 30 unit SQ BID [facility] Last Admin: 04/24/24 09:06 Dose: Not Given Lactulose (Lactulose 20 Gm/30 Ml Cup) 20 gm PO DAILY PRN PRN Reason: Constipation Lorazepam (Lorazepam 0.5 Mg Tab) 0.5 mg PO Q6HR PRN PRN Reason: Anxiety Melatonin (Melatonin 3 Mg Tablet) 3 mg PO HS PRN PRN Reason: Insomnia Metoprolol Tartrate (Metoprolol Tartrate 50 Mg Tab) 50 mg PO BID [facility] Last Admin: 04/24/24 09:05 Dose: 50 mg Miscellaneous Information (Vancomycin Trough Due 1 Each Misc) 0 each MISCELLANE DIRECTED ONE Stop: 04/25/24 12:01 Naloxone HCl (Naloxone 0.4 Mg/Ml 1 Ml Vial) 0.2 mg IV Q2M PRN PRN Reason: Opioid Reversal Ondansetron HCl (Ondansetron 4 Mg/2 Ml Vial) 4 mg IVP Q8HR PRN PRN Reason: Nausea And Vomiting Last Admin: 04/24/24 13:59 Dose: 4 mg Social history: Lives alone. No alcohol. Patient smoked 1 pack a day from 1983 through 9897. On examination: VITAL SIGNS: 98.6, 88, 17, 155/72, 100% room air GENERAL APPEARANCE: Resting in bed, comfortable HEENT: Normal external appearance of nose and ear. Oral cavity normal EYES: Pupils equal. Conjunctiva normal. NECK: JVD not raised. Mass not palpable. RESPIRATORY: Respiratory effort normal. Lungs clear to auscultation. CARDIOVASCULAR: First and second sounds normal. No edema. ABDOMEN: Soft. Liver and spleen not palpable. No tenderness. No mass palpable. PSYCHIATRY: Alert and oriented x3. Mood and affect normal. EXTREMITIES: Left foot in a dressing INVESTIGATIONS, reviewed in the clinical context: April 24: White count 10.8 hemoglobin 8.8 potassium 4.7 creatinine 0.9 April 23: White count 9.9 hemoglobin 9 potassium 4.5 creatinine 1.01 April 21: White count 10.2 hemoglobin 8.8 platelets 404 April 20: Sodium 132 potassium 5.3 BUN 26 creatinine 1.0 Previous testing Hemoglobin 8.[address]ogram: [February 2022] heavily calcified bilateral lower extremity arterial vasculature involving the superficial femoral arteries. Extending inferiorly. Extending into the femoral artery then is limited due to severe atherosclerotic plaque. Multiple areas of high-grade stenosis. Assessment and plan: -Acute left fifth toe dry gangrene and diabetic foot infection, secondary to diabetes and PAD, leading to left fifth toe amputation ray on March [address] Ledesma Return to see Dr. Ledesma in the office on April 08 with some drainage and being to have an order follow-up. Discharged on 10 days of Augmentin. Now presents with worsening local area with drainage and odor increased yesterday. On IV vancomycin. IV cefepime. P.o. Flagyl-followed by ID Seen by Dr. Haines. For local debridement on April 24. -Severe peripheral arterial disease As per CT angiogram. Aspirin, Plavix held for now in case of surgical intervention Lipitor 40 mg nightly -Diabetes type 2 insulin-dependent uncontrolled A1c level 9.6 Levemir, Humulin R. Accu-Cheks with sliding scale insulin -Iron deficiency anemia -Coronary disease with history of stent placement Plavix-hold for now in case of surgical intervention. Aspirin-resumed. Lipitor added -Essential hypertension Lopressor 50 mg twice daily. 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 6 Weight loss measures -Anxiety -Full code Pending debridement this afternoon. Later this afternoon was informed that patient had to be intubated moved to the ICU. Past Medical History Past Medical History: Asthma, Blood Disorder, Coronary Artery Disease (CAD), Diabetes Mellitus, Eye Disorder, GERD/Reflux, Hyperlipidemia, Hypertension, Myocardial Infarction ([place]), Pneumonia, Skin Disorder, Vascular Disorder Additional Past Medical History / Comment(s): Type II diabetic IDDM. retinitis pigmentosa (losing peripheral vision), Hx of cellulitis lt foot March 03, 2024. Circulation issues to lt leg-recent February 2024. IBD. Recent hospitalization @[facility] February-pt states she was anemic. States Hgb at discharge was 8.4. Pt states she had re-draw last week @[facility] out pt lab and it was Hgb was 9.6. She states she was put on Multivitamin. Last Myocardial Infarction Date:: 05/2015 History of Any Multi-Drug Resistant Organisms: None Reported Past Surgical History: Heart Catheterization, Heart Catheterization With Stent Additional Past Surgical History / Comment(s): boil under armpit (2000) Cardiac stent x3. Stent to lt leg March 07, 2024. Past Anesthesia/Blood Transfusion Reactions: No Reported Reaction Additional Past Anesthesia/Blood Transfusion Reaction / Comment(s): No hx of blood transfusion. Date of Last Stent Placement:: 05/30/2015 Past Psychological History: Anxiety Smoking Status: Former smoker Past Alcohol Use History: None Reported Past Drug Use History: None Reported
[2024-04-24] MEDS: GABAPENTIN 100 MG CAP PO SCH (18:05)
[2024-04-24 19:35] LABS: Glucose,Whole Blood 265 mg/dL (70-110)
[2024-04-24] MEDS: FAMOTIDINE 20 MG TAB PO SCH (21:18)
--- NOTE | 2024-04-25 02:07 | P.CNPUL ---
History of Present Illness Consult date: 04/25/24 Requesting physician: Jo Ledesma Reason for consult: other (ICU management) Chief complaint: cardiac arrest on initiation of anesthesia History of present illness: Patient is a 58-year-old white female with past medical history significant for diabetes mellitus, peripheral arterial disease with previous ballooning and stent to the left leg, left fifth toe gangrene and previous amputation of this appendage. She also has a history of asthma, coronary artery disease with previous stents, hyperlipidemia, hypertension, among other things. Early Feb, 2024 patient initially noticed left fifth toe wound or blister. This did get worse and became infected. She has been treated for gangrene of the left fifth toe. She did undergo left fifth toe amputation on 03/28/2024. While outside of [facility], she had increased drainage of this site. She also had some associated pain in this area. No significant fevers. She was treated with Augmentin 10 days. She was directed to our emergency department on 04/20/2024 by an after-hours urgent care clinic. On arrival and x-ray of the left foot demonstrated air producing infection and osteomyelitis was difficult to exclude. She was scheduled for debridement yesterday, however, during induction of anesthesia she became hypoxic and pulseless. She had brief round of CPR and was intubated. Following this, ROSC was achieved quickly, and patient was subsequently extubated. She was then transferred to the intensive care unit. Patient is currently in room 254. She is awake and alert and no distress. She is on 2 L/min nasal cannula. SpO2 is 93%. Blood pressure is normotensive. Not currently requiring any vasopressors. Normal saline infusing at 75 mL/h. Heart rhythm is sinus tachycardia on bedside monitor. She denies any previous reactions to anesthesia. She does report some substernal chest pain, not particularly worse with inspiration or coughing. No shortness of breath. Most recent CBC: WBC count 10.8, hemoglobin 8.8, hematocrit 29.7, platelets 334. Most recent BMP unremarkable. Procalcitonin level 0.07. Wound positive for E. coli and anaerobic organisms. Preliminary blood cultures are still not growing any organisms. She is maintained on a combination of ertapenem and vancomycin as directed by infectious disease specialist. She still needs surgical debridement. Review of Systems REVIEW OF SYSTEMS: CONSTITUTIONAL: Denies any recent significant weight loss or weight gain. Denies fevers. EYES: Denies change in vision. EARS, NOSE, MOUTH, THROAT: Denies headaches, denies sore throat. CARDIOVASCULAR: Denies palpitations or syncopal episodes. Admits substernal chest pain. RESPIRATORY: Denies shortness of breath, cough, congestion or hemoptysis. GASTROINTESTINAL: Denies change in appetite, abdominal pain, nausea and vomiting, or diarrhea GENITOURINARY: Denies hematuria, denies infections. MUSKULOSKELETAL: Admits to increased throbbing pain of the left amputation site. Also reports increased drainage and blackened wound bed. INTEGUMENTARY: Denies rash, denies eczema. NEUROLOGICAL: Denies recent memory loss, no recent seizure activity. PSYCHIATRIC: Denies anxiety, denies depression. HEMATOLOGIC/LYMPHATIC: Denies anemia, denies enlarged lymph node Past Medical History Past Medical History: Asthma, Blood Disorder, Coronary Artery Disease (CAD), Diabetes Mellitus, Eye Disorder, GERD/Reflux, Hyperlipidemia, Hypertension, Myocardial Infarction (ID), Pneumonia, Skin Disorder, Vascular Disorder Additional Past Medical History / Comment(s): Type II diabetic IDDM. retinitis pigmentosa (losing peripheral vision), Hx of cellulitis lt foot March 03, 2024. Circulation issues to lt leg-recent February 2024. IBD. Recent hospitalization @[facility] February-pt states she was anemic. States Hgb at discharge was 8.4. Pt states she had re-draw last week @[facility] out pt lab and it was Hgb was 9.6. She states she was put on Multivitamin. Last Myocardial Infarction Date:: 05/2015 History of Any Multi-Drug Resistant Organisms: None Reported Past Surgical History: Heart Catheterization, Heart Catheterization With Stent Additional Past Surgical History / Comment(s): boil under armpit (2000) Cardiac stent x3. Stent to lt leg March 07, 2024. Past Anesthesia/Blood Transfusion Reactions: No Reported Reaction Additional Past Anesthesia/Blood Transfusion Reaction / Comment(s): No hx of blood transfusion. Date of Last Stent Placement:: 05/30/2015 Past Psychological History: Anxiety Smoking Status: Former smoker Past Alcohol Use History: None Reported Past Drug Use History: None Reported - Past Family History Mother Family Medical History: Hypertension Additional Family Medical History / Comment(s): borderline diabetic Father Family Medical History: Cancer Additional Family Medical History / Comment(s): leukemia, stents placed, at 81 years old Medications and Allergies Home Medications Medication Instructions Recorded Confirmed Type Lisinopril/Hydrochlorothiazide 1 tab PO DAILY 06/23/15 04/20/24 History [Zestoretic -] Aspirin EC [Ecotrin Low Dose] 81 mg PO DAILY 03/03/24 04/20/24 History Insulin Glargine,Hum.rec.anlog 40 units SQ HS 03/03/24 04/20/24 History [Lantus Solostar Pen] Insulin Regular [humuLIN R] 40 units SQ BID 03/03/24 04/20/24 History Metoprolol Tartrate [Lopressor] 50 mg PO BID 03/03/24 04/20/24 History Clopidogrel [Plavix] 75 mg PO DAILY 03/26/24 04/20/24 History Albuterol Sulfate [Ventolin HFA] 2 puff INHALATION RT-Q6H PRN 04/20/24 04/20/24 History Allergies Allergy/AdvReac Type Severity Reaction Status Date / Time ciprofloxacin [From Cipro] AdvReac Nausea & Verified 04/24/24 13:38 Vomiting ciprofloxacin HCl AdvReac Nausea & Verified 04/24/24 13:38 [From Cipro] Vomiting clindamycin AdvReac Nausea & Verified 04/24/24 13:38 Vomiting sulfamethoxazole AdvReac Nausea & Verified 04/24/24 13:38 [From Bactrim] Vomiting trimethoprim [From Bactrim] AdvReac Nausea & Verified 04/24/24 13:38 Vomiting Physical Exam Vitals: Vital Signs Temp Pulse Pulse Pulse Resp BP BP 04/24/24 23:00 101 H 19 150/80 04/24/24 22:00 98 16 147/75 04/24/24 21:00 104 H 17 150/83 04/24/24 20:00 100 25 H 163/75 04/24/24 19:30 97 19 152/81 04/24/24 19:00 97.7 F 98 19 158/66 04/24/24 16:46 94 16 04/24/24 16:15 93 16 04/24/24 16:00 90 17 04/24/24 15:45 88 17 04/24/24 15:30 87 18 04/24/24 15:17 16 04/24/24 15:11 91 18 04/24/24 14:56 97.0 F L 97 14 04/24/24 13:50 97.8 F 78 16 186/83 04/24/24 07:00 98.6 F 88 17 BP Pulse Ox 04/24/24 23:00 93 L 04/24/24 22:00 92 L 04/24/24 21:00 92 L 04/24/24 20:00 95 04/24/24 19:30 96 04/24/24 19:00 95 04/24/24 16:46 131/66 93 L 04/24/24 16:15 163/68 94 L 04/24/24 16:00 160/72 90 L 04/24/24 15:45 170/76 97 04/24/24 15:30 189/83 96 04/24/24 15:17 87 L 04/24/24 15:11 199/86 96 04/24/24 14:56 186/86 95 04/24/24 13:50 98 04/24/24 07:00 155/72 100 Intake and Output 04/24/24 04/24/24 04/25/24 14:59 22:59 06:59 Intake Total 100 900 315 Output Total 900 Balance 100 0 315 Intake: IV 100 900 75 Sodium Chloride 0.9% 1, 300 75 000 ml @ 75 mls/hr IV . [id number] [facility] Rx#:[id number] Oral 240 Output: Urine 900 Other: Voiding Method Bedside Commode GENERAL EXAM: Alert, 58-year-old obese white female, comfortable in no apparent distress. HEAD: Normocephalic and atraumatic EYES: Normal reaction of pupils, equal size. NOSE: Clear with pink turbinates. THROAT: No erythema or exudates. NECK: No masses, no JVD. CHEST: No chest wall deformity. LUNGS: Equal air entry with no crackles, wheeze, rhonchi or dullness. On 2 L/min nasal cannula. No conversational dyspnea or accessory muscle use.. CVS: S1 and S2 normal with no audible murmur, regular rhythm. No extra heart sounds ABDOMEN: No hepatosplenomegaly, active bowel sounds, no guarding or rigidity. SPINE: No scoliosis or deformity SKIN: No rashes CENTRAL NERVOUS SYSTEM: No focal deficits, tone is normal in all 4 extremities. EXTREMITIES: There is no peripheral edema, clubbing, or cyanosis. Peripheral pulses are intact. Left foot is wrapped. Results - Laboratory Findings CBC and BMP: 04/24/24 12:45 04/24/24 12:45 PT/INR, D-dimer D-Dimer 3.25 mg/L FEU (<0.60) H 04/25/24 00:45 Abnormal lab findings: Abnormal Labs 04/20/24 04/20/24 04/20/24 18:09 18:09 19:16 WBC 11.8 H RBC Hgb 10.7 L Hct MCH MCHC Neutrophils # 9.8 H D-Dimer Sodium 132 L Potassium 5.3 H Chloride 97 L Carbon Dioxide BUN 26 H Creatinine Glucose 385 H POC Glucose (mg/dL) C-Reactive Protein 5.2 H Urine Appearance Cloudy H Urine Protein 2+ H Urine Glucose (UA) 4+ H Ur Leukocyte Esterase Large H Urine WBC 44 H Ur Squamous Epith Cells 10 H Urine Bacteria Rare H Hyaline Casts 5 H Urine Mucus Rare H 04/20/24 04/20/24 04/20/24 20:35 22:03 23:17 WBC RBC Hgb Hct MCH MCHC Neutrophils # D-Dimer Sodium Potassium Chloride Carbon Dioxide BUN Creatinine Glucose POC Glucose (mg/dL) 412 H 367 H 291 H C-Reactive Protein Urine Appearance Urine Protein Urine Glucose (UA) Ur Leukocyte Esterase Urine WBC Ur Squamous Epith Cells Urine Bacteria Hyaline Casts Urine Mucus 04/21/24 04/21/24 04/21/24 04:26 05:33 05:33 WBC 10.21 H RBC 3.51 L Hgb 8.8 L Hct 29.9 L MCH 25.1 L MCHC 29.4 L Neutrophils # 7.99 H D-Dimer Sodium Potassium Chloride Carbon Dioxide BUN Creatinine 1.17 H Glucose POC Glucose (mg/dL) 55 L C-Reactive Protein Urine Appearance Urine Protein Urine Glucose (UA) Ur Leukocyte Esterase Urine WBC Ur Squamous Epith Cells Urine Bacteria Hyaline Casts Urine Mucus 04/21/24 04/21/24 04/21/24 06:35 10:38 11:33 WBC RBC Hgb Hct MCH MCHC Neutrophils # D-Dimer Sodium Potassium Chloride Carbon Dioxide BUN Creatinine Glucose POC Glucose (mg/dL) 151 H 245 H 219 H C-Reactive Protein Urine Appearance Urine Protein Urine Glucose (UA) Ur Leukocyte Esterase Urine WBC Ur Squamous Epith Cells Urine Bacteria Hyaline Casts Urine Mucus 04/21/24 04/21/24 04/21/24 12:24 16:42 20:52 WBC RBC Hgb Hct MCH MCHC Neutrophils # D-Dimer Sodium Potassium Chloride Carbon Dioxide BUN Creatinine Glucose POC Glucose (mg/dL) 189 H 59 L 135 H C-Reactive Protein Urine Appearance Urine Protein Urine Glucose (UA) Ur Leukocyte Esterase Urine WBC Ur Squamous Epith Cells Urine Bacteria Hyaline Casts Urine Mucus 04/22/24 04/22/24 04/22/24 01:58 05:11 05:44 WBC RBC Hgb Hct MCH MCHC Neutrophils # D-Dimer Sodium Potassium Chloride Carbon Dioxide BUN Creatinine 1.09 H Glucose POC Glucose (mg/dL) 156 H 153 H C-Reactive Protein Urine Appearance Urine Protein Urine Glucose (UA) Ur Leukocyte Esterase Urine WBC Ur Squamous Epith Cells Urine Bacteria Hyaline Casts Urine Mucus 04/22/24 04/22/24 04/22/24 11:44 16:40 20:40 WBC RBC Hgb Hct MCH MCHC Neutrophils # D-Dimer Sodium Potassium Chloride Carbon Dioxide BUN Creatinine Glucose POC Glucose (mg/dL) 152 H 219 H 262 H C-Reactive Protein Urine Appearance Urine Protein Urine Glucose (UA) Ur Leukocyte Esterase Urine WBC Ur Squamous Epith Cells Urine Bacteria Hyaline Casts Urine Mucus 04/22/24 04/23/24 04/23/24 21:34 03:11 03:11 WBC RBC 3.45 L Hgb 9.0 L D Hct 29.6 L MCH MCHC 30.3 L Neutrophils # D-Dimer Sodium Potassium Chloride Carbon Dioxide 21 L BUN 21 H Creatinine Glucose 155 H POC Glucose (mg/dL) 249 H C-Reactive Protein Urine Appearance Urine Protein Urine Glucose (UA) Ur Leukocyte Esterase Urine WBC Ur Squamous Epith Cells Urine Bacteria Hyaline Casts Urine Mucus 04/23/24 04/23/24 04/23/24 06:10 16:47 20:39 WBC RBC Hgb Hct MCH MCHC Neutrophils # D-Dimer Sodium Potassium Chloride Carbon Dioxide BUN Creatinine Glucose POC Glucose (mg/dL) 173 H 234 H 263 H C-Reactive Protein Urine Appearance Urine Protein Urine Glucose (UA) Ur Leukocyte Esterase Urine WBC Ur Squamous Epith Cells Urine Bacteria Hyaline Casts Urine Mucus 04/24/24 04/24/24 04/24/24 06:05 11:20 12:45 WBC 10.8 H RBC 3.46 L Hgb 8.8 L Hct 29.7 L MCH MCHC 29.7 L Neutrophils # 9.1 H D-Dimer Sodium Potassium Chloride Carbon Dioxide BUN Creatinine Glucose POC Glucose (mg/dL) 233 H 197 H C-Reactive Protein Urine Appearance Urine Protein Urine Glucose (UA) Ur Leukocyte Esterase Urine WBC Ur Squamous Epith Cells Urine Bacteria Hyaline Casts Urine Mucus 04/24/24 04/24/24 04/24/24 12:45 13:53 15:21 WBC RBC Hgb Hct MCH MCHC Neutrophils # D-Dimer Sodium 136 L Potassium Chloride Carbon Dioxide BUN 18 H Creatinine Glucose 186 H POC Glucose (mg/dL) 191 H 249 H C-Reactive Protein Urine Appearance Urine Protein Urine Glucose (UA) Ur Leukocyte Esterase Urine WBC Ur Squamous Epith Cells Urine Bacteria Hyaline Casts Urine Mucus 04/24/24 04/24/24 04/25/24 17:23 19:34 00:45 WBC RBC Hgb Hct MCH MCHC Neutrophils # D-Dimer 3.25 H Sodium Potassium Chloride Carbon Dioxide BUN Creatinine Glucose POC Glucose (mg/dL) 242 H 265 H C-Reactive Protein Urine Appearance Urine Protein Urine Glucose (UA) Ur Leukocyte Esterase Urine WBC Ur Squamous Epith Cells Urine Bacteria Hyaline Casts Urine Mucus - Diagnostic Findings Chest x-ray: image reviewed Assessment and Plan Assessment: Left foot gangrene, left foot x-ray on arrival to the emergency department demonstrated air producing infection and osteomyelitis was difficult to exclude. Patient was scheduled for OR debridement yesterday 04/24/2024, during induction of anesthesia, patient became hypoxic and pulseless. Patient had a brief round of CPR and was intubated, following this ROSC was achieved quickly. Patient was subsequently extubated and transferred to the intensive care unit. Brief PEA cardiac arrest, likely secondary to anesthesia induction Substernal chest pain, likely related to CPR History of left fifth toe gangrene status post amputation on 03/28/2024 History of severe peripheral arterial disease with previous balloon angioplasty and stent to the left lower extremity on 03/07/2024 History of coronary artery disease and previous ID, with multiple previous PCI/stents Diabetes mellitus type 2, insulin-dependent Normocytic normochromic anemia, no overt signs of blood loss History of hyperlipidemia History of hypertension History of asthma, stable Plan: Patient is currently in the intensive care unit. She was extubated by anesthesia. Currently on 2 L/min nasal cannula. She is still complaining of some substernal chest pain. Likely related to CPR, however, will consider ACS and rule out PE. Obtain chest x-ray Obtain stat EKG and echocardiogram Obtain D-dimer and follow-up with chest CT angio protocol if elevated Antibiotics are being managed by infectious disease specialist. Surgical debridement will need to be rescheduled We will continue to follow, and additional recommendations are forthcoming I have personally seen and examined the patient, performed the documentation and the assessment and plan as written. Number of minutes spent on the visit:20 Time with Patient: Greater than 30
--- NOTE | 2024-04-25 03:24 | CT ---
EXAM: CT Angiography Chest With Intravenous Contrast CLINICAL HISTORY: ITS.REASON CT Reason: rule out PE TECHNIQUE: Axial computed tomographic angiography images of the chest with intravenous contrast. CTDI is 12.6 mGy and DLP is 473.3 mGy-cm. This CT exam was performed using one or more of the following dose reduction techniques: automated exposure control, adjustment of the mA and/or kV according to patient size, and/or use of iterative reconstruction technique. MIP reconstructed images were created and reviewed. COMPARISON: No relevant prior studies available. FINDINGS: Pulmonary arteries: Unremarkable. No pulmonary embolism. Aorta: No acute findings. No thoracic aortic aneurysm. Lungs: Unremarkable. No mass. No consolidation. Pleural space: Patchy bilateral airspace consolidations, preferentially involving the RIGHT lower lobe. Small bilateral pleural effusions. Heart: Unremarkable. No cardiomegaly. No significant pericardial effusion. No evidence of RV dysfunction. Bones/joints: No acute fracture. No dislocation. Soft tissues: Unremarkable. Lymph nodes: Unremarkable. No enlarged lymph nodes. Liver: Hepatic steatosis. IMPRESSION: 1. Patchy bilateral airspace consolidations, preferentially involving the RIGHT lower lobe. Small bilateral pleural effusions. 2. Hepatic steatosis.
[2024-04-25] MEDS: LORazepam 0.5 MG TAB PO PRN (03:31)
[2024-04-25 04:52] LABS: African American GFR (CKD) >90 (>60 ml/min/1.73 sqM); Anion Gap 12 mmol/L; Blood Urea Nitrogen 19 mg/dL (7-17); Calcium 8.9 mg/dL (8.4-10.2); Carbon Dioxide 21 mmol/L (22-30); Chloride 99 mmol/L (98-107); Glucose 285 mg/dL (74-99); Non-African American GFR(CKD) 80 (>60 ml/min/1.73 sqM); Potassium 4.8 mmol/L (3.5-5.1); Sodium 132 mmol/L (137-145)
[2024-04-25 05:20] LABS: Basophils % (A) 0 %; Eosinophils % (A) 0 %; HCT 33.1 % (34.0-46.0); HGB 9.7 gm/dL (11.4-16.0); Hypochromasia Marked; Lymphocytes # (A) 0.5 k/uL (1.0-4.8); Lymphocytes % (A) 4 %; MCH 25.4 pg (25.0-35.0); MCHC 29.2 g/dL (31.0-37.0); Mean Platelet Volume 8.4; Monocytes # (A) 0.2 k/uL (0-1.0); Monocytes % (A) 2 %; Neutrophils # (A) 12.1 k/uL (1.3-7.7); Neutrophils % (A) 94 %; Platelet Count 377 k/uL (150-450); RBC 3.81 m/uL (3.80-5.40); RDW 14.6 % (11.5-15.5); WBC 12.8 k/uL (3.8-10.6)
--- NOTE | 2024-04-25 07:41 | XR ---
EXAMINATION TYPE: XR chest 1V DATE OF EXAM: 04/25/2024 HISTORY: Shortness of breath. COMPARISON: 03/06/2024 TECHNIQUE: Single view of the chest is submitted. FINDINGS: Demonstrated are scattered senescent parenchymal change. Pulmonary venous congestion with perihilar infiltrates and interstitial edema suggested. There is als o cardiomegaly. Correlate for congestive failure. Infiltrates of other etiology are not excluded and follow-up until resolution and clinical correlation advised. Hilar and mediastinal structures are within normal limits. Degenerative changes are seen of the dorsal spine. IMPRESSION: 1. Pulmonary venous congestion with perihilar infiltrates and interstitial edema suggested. There is also cardiomegaly. Correlate for congestive failure. Infiltrates of other etiology are not excluded and follow-up until resolution and clinical correlation advised.
[2024-04-25 08:31] LABS: Glucose,Whole Blood 280 mg/dL (70-110)
--- NOTE | 2024-04-25 10:42 | P.PN ---
Subjective Progress Note Date: 04/25/24 Principal diagnosis: Nonhealing, infected left foot wound Patient is seen and examined today as a follow-up. Yesterday patient was supposed to undergo debridement of left fifth toe amputation site, which was canceled as she had a hypoxic event with rapid decline and bradycardia with subsequent loss of pulse with initiation of CPR and intubation after initiation of anesthesia. After appropriate airway and CPR patient had ROSC she was subsequently extubated and admitted to the ICU. She is currently lying down and undergoing echocardiogram. She currently denies any acute changes through the night. She has no complaints at this time including chest pain or shortness of breath. Does have some sternal discomfort. She remains afebrile. Infectious disease ordered Invanz IV antibiotic therapy and patient is refusing. Patient also has been refusing her nighttime insulin for the last couple nights and her blood sugars have been running in the upper 200s this morning pending 285. Today's labs WBC 12.8 hemoglobin 9.7 platelet count 377,000 sodium 132 potassium 4.8 BUN 19 creatinine 0.8 glucose 285 troponin 11.5. Patient also had positive D-dimer 3.[address] angiogram chest which was negative for pulmonary embolism. Objective - Vital Signs Vital signs: Vital Signs Temp 98.1 F 04/25/24 00:00 Pulse 87 04/25/24 07:00 Resp 13 04/25/24 07:00 BP 159/68 04/25/24 07:00 Pulse Ox 95 04/25/24 07:00 FiO2 Intake & Output 04/24/24 04/25/24 04/25/24 18:59 06:59 18:59 Intake Total 700 940 25 Output Total 2600 Balance 700 -1660 25 Weight 90.3 kg Intake: IV 700 700 25 Sodium Chloride 0.9% 1, 700 25 000 ml @ 75 mls/hr IV . [id number] [facility] Rx#:[id number] Oral 240 Output: Urine 2600 Other: Voiding Method External Catheter Bedside Commode - Exam General appearance: The patient is alert, oriented, appears in no acute distress. HET: Head is normocephalic and atraumatic. Neck: Supple. Abdomen: Soft, nondistended. Extremities: Left foot with dressing clean dry and intact. Palpable DP pulse. Neurological: No focal deficits. Alert and oriented. - Labs CBC & Chem 7: 04/25/24 03:38 06/27/24 03:38 Labs: Abnormal Lab Results - Last 24 Hours (Table) 04/24/24 04/24/24 04/24/24 Range/Units 11:20 12:45 12:45 WBC 10.8 H (3.8-10.6) k/uL RBC 3.46 L (3.80-5.40) m/uL Hgb 8.8 L (11.4-16.0) gm/dL Hct 29.7 L (34.0-46.0) % MCHC 29.7 L (31.0-37.0) g/dL Neutrophils # 9.1 H (1.3-7.7) k/uL Lymphocytes # (1.0-4.8) k/uL D-Dimer (<0.60) mg/L FEU Sodium 136 L (137-145) mmol/L Carbon Dioxide (22-30) mmol/L BUN 18 H (7-17) mg/dL Glucose 186 H (74-99) mg/dL POC Glucose (mg/dL) 197 H (70-110) mg/dL Troponin I (0.000-0.034) ng/mL 04/24/24 04/24/24 04/24/24 Range/Units 13:53 15:21 17:23 WBC (3.8-10.6) k/uL RBC (3.80-5.40) m/uL Hgb (11.4-16.0) gm/dL Hct (34.0-46.0) % MCHC (31.0-37.0) g/dL Neutrophils # (1.3-7.7) k/uL Lymphocytes # (1.0-4.8) k/uL D-Dimer (<0.60) mg/L FEU Sodium (137-145) mmol/L Carbon Dioxide (22-30) mmol/L BUN (7-17) mg/dL Glucose (74-99) mg/dL POC Glucose (mg/dL) 191 H 249 H 242 H (70-110) mg/dL Troponin I (0.000-0.034) ng/mL 04/24/24 04/25/24 04/25/24 Range/Units 19:34 00:45 00:45 WBC (3.8-10.6) k/uL RBC (3.80-5.40) m/uL Hgb (11.4-16.0) gm/dL Hct (34.0-46.0) % MCHC (31.0-37.0) g/dL Neutrophils # (1.3-7.7) k/uL Lymphocytes # (1.0-4.8) k/uL D-Dimer 3.25 H (<0.60) mg/L FEU Sodium (137-145) mmol/L Carbon Dioxide (22-30) mmol/L BUN (7-17) mg/dL Glucose (74-99) mg/dL POC Glucose (mg/dL) 265 H (70-110) mg/dL Troponin I 3.260 H* (0.000-0.034) ng/mL 04/25/24 04/25/24 04/25/24 Range/Units 03:38 03:38 03:38 WBC 12.8 H (3.8-10.6) k/uL RBC (3.80-5.40) m/uL Hgb 9.7 L (11.4-16.0) gm/dL Hct 33.1 L (34.0-46.0) % MCHC 29.2 L (31.0-37.0) g/dL Neutrophils # 12.1 H (1.3-7.7) k/uL Lymphocytes # 0.5 L (1.0-4.8) k/uL D-Dimer (<0.60) mg/L FEU Sodium 132 L (137-145) mmol/L Carbon Dioxide 21 L (22-30) mmol/L BUN 19 H (7-17) mg/dL Glucose 285 H (74-99) mg/dL POC Glucose (mg/dL) (70-110) mg/dL Troponin I 11.500 H* (0.000-0.034) ng/mL Microbiology - Last 24 Hours (Table) 04/20/24 16:55 Anaerobic Culture - Preliminary Toe - Left Fifth Anaerobic Gm Negative Bacilli Anaerobic Gm Negative Bacilli#2 Assessment and Plan Assessment: 1. Infected left fifth toe amputation site 2. Left fifth toe amputation 03/28/2024 for gangrene 3. Diabetes mellitus 4. Medication noncompliance, patient is refusing ordered medications during her hospitalization including her insulin in IV antibiotics 5. Hyperglycemia 6. Brief PEA cardiac arrest with CPR initiated, likely secondary to anesthesia induction Plan: 1. Continue symptomatic and supportive care 2. Continue IV antibiotics per recommendations from infectious disease. Discussed with patient importance of medication compliance to help with infection and reduce risk of further amputation. Patient verbalized understanding. 3. Resume Plavix 4. Wound VAC to left fifth toe amputation site 5. Cardiology on consultation, they recommend patient undergo cardiac catheterization before any further anesthesia or surgical procedures 6. Consistent carbohydrate diet 7. Surgical debridement canceled for now 9. Rest of medical management per primary medical team 10. Discussed importance of medication compliance for blood sugar control and role it plays in peripheral vascular disease, as well as healing of wound and prevention of requiring further amputation. Patient verbalized understanding. Thank you for this consultation, we will continue to follow The impression and plan of care has been dictated as directed. Dr. Ledesma I performed a history and examination of this patient, discussed the same with the dictator. I agree with the dictator's note ,documented as a scribe. Any additional findings or plans will be noted.
[2024-04-25 11:34] LABS: Glucose,Whole Blood 217 mg/dL (70-110)
[2024-04-25] MEDS: VANCOMYCIN TROUGH DUE 1 EACH MISC MISCELLANE ONE (13:11)
[2024-04-25] MEDS ORDERED: ALPRAZolam 0.5 MG TAB PO PRN (13:16)
[2024-04-25] MEDS ORDERED: NITROGLYCERIN SL TABS 0.4 MG TAB SUBLINGUAL PRN (13:16)
--- NOTE | 2024-04-25 15:46 | P.PN ---
Progress Note - Text Progress Note Date: 04/25/24 Chief Complaint: Left foot infection Patient is a 58-year-old female with known history of coronary disease status post stent placement, diabetes type 2 insulin-dependent, hypertension, asthma and history of retinitis pigmentosa, anxiety 03/05/2024: CT angiogram of the abdomen aorta with runoff showed heavily calcified bilateral lower extremity arterial vasculature involving the superficial femoral arteries and extending inferiorly to the popliteal artery to the feet is limited due to severe atherosclerotic plaque. Patient was discharged from the hospital on March [address] Ledesma. Left toe was felt will probably demarcate. With gangrene. March 28: Left fifth toe ray amputation carried out by Dr. Ledesma. Patient did not return to the office outpatient to see Dr. Ledesma on April 08. There was some odor from the amputation site. Was given 10-day course of Augmentin. Patient now presents with increasing drainage and highly sensitive area of the left foot. No fever no chills. Appetite not too good. Has been using a walker April 22: Sitting at the edge of bed. Seen earlier by Dr. Haines from vascular. Plan for local debridement and deep tissue culture on April 24. Also seen by ID. Patient IV cefepime and vancomycin. And Flagyl. Eating 100% April 23: Resting in bed. Pending debridement of wound tomorrow. Getting IV cefepime IV vancomycin. Wound culture growing E. coli. April 24: Saw the patient this morning. Resting bed. Pending debridement. On antibiotics. NPO. IV this afternoon I got a call from Dr. Ledesma vascular surgery. Patient had respiratory compromise had to be intubated. Moved to the ICU. April 25: Patient in the ICU. Yesterday when patient is given anesthesia patient had a cardiac arrest. Had to be intubated. Was shortly extubated t after. Debridement was postponed. Patient's troponin became positive. Peaked at 11.5. He is planning for a cardiac catheterization. Patient initially refused antibiotics feeling is causing her bloating. I did explain to the patient that several of the reasons for the same. Has agreed to take antibiotics. On IV heparin EKG showed ST depression and some T wave changes Active Medications Acetaminophen (Acetaminophen Tab 325 Mg Tab) 650 mg PO Q6HR PRN PRN Reason: Mild Pain or Fever > 100.5 Last Admin: 04/24/24 09:06 Dose: 650 mg Albuterol Sulfate (Albuterol Hfa Inhaler) 2 puff INHALATION RT-Q6H PRN PRN Reason: Shortness Of Breath Alprazolam (Alprazolam 0.25 Mg Tab) 0.25 mg PO Q6HR PRN PRN Reason: Mild Anxiety Alprazolam (Alprazolam 0.5 Mg Tab) 0.5 mg PO Q6HR PRN PRN Reason: Moderate Anxiety Aspirin (Aspirin 81 Mg) 81 mg PO DAILY [facility] Last Admin: 04/25/24 08:41 Dose: 81 mg Calcium Carbonate/Glycine (Calcium Carbonate 500 Mg Chewable) 1,000 mg PO Q4HR PRN PRN Reason: Dyspepsia Last Admin: 04/24/24 09:14 Dose: 1,000 mg Clopidogrel Bisulfate (Clopidogrel 75 Mg Tab) 75 mg PO DAILY [facility] Enoxaparin Sodium (Enoxaparin 40 Mg/0.4 Ml Syringe) 40 mg SQ DAILY [facility] Last Admin: 04/25/24 08:38 Dose: 40 mg Famotidine (Famotidine 20 Mg Tab) 20 mg PO BID [facility] Last Admin: 04/25/24 08:40 Dose: 20 mg Gabapentin (Gabapentin 100 Mg Cap) 100 mg PO TID [facility] Last Admin: 04/25/24 08:40 Dose: 100 mg Lisinopril/HCTZ (Lisinopril-Hctz 20-25 Mg 1 Each Tab) 1 each PO DAILY [facility] Last Admin: 04/25/24 08:41 Dose: 1 each Hydromorphone HCl (Hydromorphone 0.5 Mg/0.5 Ml Syringe) 0.5 mg IVP Q3HR PRN PRN Reason: Moderate Pain (Scale 4 to 6) Last Admin: 04/24/24 21:18 Dose: 0.5 mg Hydromorphone HCl (Hydromorphone 1 Mg/Ml 1 Ml Syringe) 1 mg IVP Q3HR PRN PRN Reason: Severe Pain (Scale 7 to 10) Vancomycin HCl 1,500 mg/ (Sodium Chloride) 500 mls @ 167 mls/hr IVPB Q16H [facility] Last Admin: 04/25/24 13:11 Dose: 167 mls/hr Sodium Chloride (Saline 0.9%) 1,000 mls @ 75 mls/hr IV .[id number] [facility] Last Admin: 04/25/24 08:43 Dose: Not Given Ertapenem 1 gm/ Sodium (Chloride) 50 mls @ 100 mls/hr IVPB DAILY [facility]; Protocol Last Admin: 04/25/24 08:41 Dose: 100 mls/hr Heparin Sodium (Porcine) 10, (000 unit/ Sodium Chloride) 1,001 mls @ 999 mls/hr IRRIGATION ONCE PRN PRN Reason: INTRA-OP Stop: 04/26/24 23:00 Heparin Sodium (Porcine) 2,500 (unit/ Sodium Chloride) 250.5 mls @ 250 mls/hr IRRIGATION ONCE PRN PRN Reason: INTRA-OP Stop: 04/26/24 23:00 Insulin Aspart (Insulin Aspart (Novolog) 100 Unit/Ml Vial) 0 unit SQ ACHS [facility]; Protocol Last Admin: 04/25/24 11:45 Dose: 6 unit Insulin Detemir (Insulin Detemir (Levemir) 100 Unit/Ml Syr) 30 unit SQ HS [facility] Last Admin: 04/24/24 21:18 Dose: 30 unit Insulin Human Regular (Insulin Regular 100 Unit/Ml Vial (Iv)) 30 unit SQ BID [facility] Last Admin: 04/25/24 08:37 Dose: 30 unit Lactulose (Lactulose 20 Gm/30 Ml Cup) 20 gm PO DAILY PRN PRN Reason: Constipation Lorazepam (Lorazepam 0.5 Mg Tab) 0.5 mg PO Q6HR PRN PRN Reason: Anxiety Last Admin: 04/25/24 03:31 Dose: 0.5 mg Melatonin (Melatonin 3 Mg Tablet) 3 mg PO HS PRN PRN Reason: Insomnia Metoprolol Tartrate (Metoprolol Tartrate 50 Mg Tab) 50 mg PO BID [facility] Last Admin: 04/25/24 08:41 Dose: 50 mg Naloxone HCl (Naloxone 0.4 Mg/Ml 1 Ml Vial) 0.2 mg IV Q2M PRN PRN Reason: Opioid Reversal Nitroglycerin (Nitroglycerin Sl Tabs 0.4 Mg Tab) 0.4 mg SUBLINGUAL Q5M PRN PRN Reason: Chest Pain Ondansetron HCl (Ondansetron 4 Mg/2 Ml Vial) 4 mg IVP Q8HR PRN PRN Reason: Nausea And Vomiting Last Admin: 04/24/24 13:59 Dose: 4 mg Social history: Lives alone. No alcohol. Patient smoked 1 pack a day from 1983 through 9897. On examination: VITAL SIGNS: 98.2, 92, 18, 159 x 77, 92% on 3 L GENERAL APPEARANCE: Resting in bed, comfortable HEENT: Normal external appearance of nose and ear. Oral cavity normal EYES: Pupils equal. Conjunctiva normal. NECK: JVD not raised. Mass not palpable. RESPIRATORY: Respiratory effort normal. Lungs clear to auscultation. CARDIOVASCULAR: First and second sounds normal. No edema. ABDOMEN: Soft. Liver and spleen not palpable. No tenderness. No mass palpable. PSYCHIATRY: Alert and oriented x3. Mood and affect normal. EXTREMITIES: Left foot in a dressing INVESTIGATIONS, reviewed in the clinical context: April 25: White count 12.8 hemoglobin 9.7 platelets 377 potassium 4.8 creatinine 0.81 Troponin I-3.2, 11.5 April 24: White count 10.8 hemoglobin 8.8 potassium 4.7 creatinine 0.9 April 23: White count 9.9 hemoglobin 9 potassium 4.5 creatinine 1.01 April 21: White count 10.2 hemoglobin 8.8 platelets 404 April 20: Sodium 132 potassium 5.3 BUN 26 creatinine 1.0 Previous testing Hemoglobin 8.[address]ogram: [February 2022] heavily calcified bilateral lower extremity arterial vasculature involving the superficial femoral arteries. Extending inferiorly. Extending into the femoral artery then is limited due to severe atherosclerotic plaque. Multiple areas of high-grade stenosis. Assessment and plan: -Acute left fifth toe dry gangrene and diabetic foot infection, secondary to diabetes and PAD, leading to left fifth toe amputation ray on March [address] Ledesma Return to see Dr. Ledesma in the office on April 08 with some drainage and being to have an order follow-up. Discharged on 10 days of Augmentin. Now presents with worsening local area with drainage and odor increased yesterday. On IV vancomycin. IV cefepime. P.o. Flagyl-followed by ID Seen by vascular. For debridement -Acute non-Q wave LA. Troponin peaked at 11.5 IV heparin. Cardiology following. For possible cardiac cath -IV heparin monitoring Follow PTT -Severe peripheral arterial disease As per CT angiogram. Aspirin, Plavix held for now in case of surgical intervention Lipitor 40 mg nightly -Diabetes type 2 insulin-dependent uncontrolled A1c level 9.6 Levemir, Humulin R. Accu-Cheks with sliding scale insulin -Iron deficiency anemia -Coronary disease with history of stent placement Plavix-hold for now in case of surgical intervention. Aspirin-resumed. Lipitor added -Essential hypertension Lopressor 50 mg twice daily. 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 6 Weight loss measures -Anxiety -Full code Discussed with patient about antibiotics. Discussed with Dr. Ledesma. ICU. IV heparin. Past Medical History Past Medical History: Asthma, Blood Disorder, Coronary Artery Disease (CAD), Diabetes Mellitus, Eye Disorder, GERD/Reflux, Hyperlipidemia, Hypertension, Myocardial Infarction ([place]), Pneumonia, Skin Disorder, Vascular Disorder Additional Past Medical History / Comment(s): Type II diabetic IDDM. retinitis pigmentosa (losing peripheral vision), Hx of cellulitis lt foot March 03, 2024. Circulation issues to lt leg-recent February 2024. IBD. Recent hospitalization @[facility] February-pt states she was anemic. States Hgb at discharge was 8.4. Pt states she had re-draw last week @[facility] out pt lab and it was Hgb was 9.6. She states she was put on Multivitamin. Last Myocardial Infarction Date:: 05/2015 History of Any Multi-Drug Resistant Organisms: None Reported Past Surgical History: Heart Catheterization, Heart Catheterization With Stent Additional Past Surgical History / Comment(s): boil under armpit (2000) Cardiac stent x3. Stent to lt leg March 07, 2024. Past Anesthesia/Blood Transfusion Reactions: No Reported Reaction Additional Past Anesthesia/Blood Transfusion Reaction / Comment(s): No hx of blood transfusion. Date of Last Stent Placement:: 05/30/2015 Past Psychological History: Anxiety Smoking Status: Former smoker Past Alcohol Use History: None Reported Past Drug Use History: None Reported
[2024-04-25 16:16] LABS: Glucose,Whole Blood 100 mg/dL (70-110)
--- NOTE | 2024-04-25 16:33 | P.CRDCN ---
History of Present Illness History of present illness: HISTORY OF PRESENTING ILLNESS This is a pleasant 58-year-old with past medical history significant for hypertension, hyperlipidemia, CAD with prior PCI of the RCA and circumflex, diabetes mellitus type 2 and PAD and nonhealing ulcer. She follows in the office with Dr Donahue. She does have PAD and had recent lower extremity stenting in the setting of nonhealing ulcer. She presented 04/20 secondary to increased left foot pain and infection with possible osteomyelitis. She was scheduled for debridement 04/24 however upon induction of anesthesia patient had hypoxic episode and asystole requiring CPR. This was felt related to bronchospasm and during the time of intubation per anesthesia. She had return of spontaneous circulation and has been off of any vasopressors. She was extubated and surgery was not performed. Currently she denies any chest pain other than where her chest compressions were performed. Troponins elevated 3.2, 11.5. EKG showing normal sinus rhythm, poor R-wave progression, diffuse mild ST depressions in the lateral leads. She has had prior stress test from 2020 with abnormal anterior ischemia and plan was to repeat stress testing at some point in cardiology office. REVIEW OF SYSTEMS At the time of my exam: CONSTITUTIONAL: Denies fever or chills. CARDIOVASCULAR: Denies chest pain, +chronic shortness of breath, no orthopnea, PND or palpitations. RESPIRATORY: Denies cough. GASTROINTESTINAL: Denies abdominal pain, diarrhea, constipation, nausea or vomiting. MUSCULOSKELETAL: Denies myalgias. NEUROLOGIC: Denies numbness, tingling or weakness. ENDOCRINE: Denies fatigue, weight change, polydipsia or polyurina. GENITOURINARY: Denies burning, hematuria or urgency with micturation. HEMATOLOGIC: Denies history of anemia or bleeding. PHYSICAL EXAMINATION Vital signs reviewed. CONSTITUTIONAL: No apparent distress. HEENT: Head is normocephalic. Pupils are equal, round. Sclerae anicteric. Mucous membranes of the mouth are moist. No JVD. No carotid bruit. CHEST EXAMINATION: Lungs are clear to auscultation. No chest wall tenderness is noted on palpation or with deep breathing. HEART EXAMINATION: Regular rate and rhythm. S1, S2 heard. No murmurs, gallops or rub. ABDOMEN: Soft, nontender. Positive bowel sounds. EXTREMITIES: no lower extremity edema and no calf tenderness. +LLE nonhealing ulcer NEUROLOGIC EXAMINATION: Patient is awake, alert and oriented x3. ASSESSMENT Cardiac arrest, possible hypoxic related however significant non-STEMI with concern of cardiac etiology Non-STEMI, concern of type I etiology Left foot gangrene Atypical chest pain related to CPR PAD with prior left lower extremity intervention CAD with prior history of PCI of circumflex and RCA Diabetes mellitus type 2 Anemia Hypertension Hyperlipidemia History of asthma PLAN Patient with cardiac arrest during induction of anesthesia which may be related to hypoxia however multiple risk factors and additionally had a prior abnormal stress test. Before any consideration of repeating debridement, patient needs further cardiac evaluation. Additionally given non-STEMI continue aspirin and heparin drip. Discussed heart catheterization patient is agreeable. Heart catheterization 04/26. Currently not having any significant angina-type symptoms. Past Medical History Past Medical History: Asthma, Blood Disorder, Coronary Artery Disease (CAD), Diabetes Mellitus, Eye Disorder, GERD/Reflux, Hyperlipidemia, Hypertension, Myocardial Infarction ([place]), Pneumonia, Skin Disorder, Vascular Disorder Additional Past Medical History / Comment(s): Type II diabetic IDDM. retinitis pigmentosa (losing peripheral vision), Hx of cellulitis lt foot March 03, 2024. Circulation issues to lt leg-recent February 2024. IBD. Recent hospitalization @[facility] February-pt states she was anemic. States Hgb at discharge was 8.4. Pt states she had re-draw last week @[facility] out pt lab and it was Hgb was 9.6. She states she was put on Multivitamin. Last Myocardial Infarction Date:: 05/2015 History of Any Multi-Drug Resistant Organisms: None Reported Past Surgical History: Heart Catheterization, Heart Catheterization With Stent Additional Past Surgical History / Comment(s): boil under armpit (2000) Cardiac stent x3. Stent to lt leg March 07, 2024. Past Anesthesia/Blood Transfusion Reactions: No Reported Reaction Additional Past Anesthesia/Blood Transfusion Reaction / Comment(s): No hx of blood transfusion. Date of Last Stent Placement:: 05/30/2015 Past Psychological History: Anxiety Smoking Status: Former smoker Past Alcohol Use History: None Reported Past Drug Use History: None Reported - Past Family History Mother Family Medical History: Hypertension Additional Family Medical History / Comment(s): borderline diabetic Father Family Medical History: Cancer Additional Family Medical History / Comment(s): leukemia, stents placed, at 81 years old Medications and Allergies Home Medications Medication Instructions Recorded Confirmed Type Lisinopril/Hydrochlorothiazide 1 tab PO DAILY 06/23/15 04/20/24 History [Zestoretic 20-] Aspirin EC [Ecotrin Low Dose] 81 mg PO DAILY 03/03/24 04/20/24 History Insulin Glargine,Hum.rec.anlog 40 units SQ HS 03/03/24 04/20/24 History [Lantus Solostar Pen] Insulin Regular [humuLIN R] 40 units SQ BID 03/03/24 04/20/24 History Metoprolol Tartrate [Lopressor] 50 mg PO BID 03/03/24 04/20/24 History Clopidogrel [Plavix] 75 mg PO DAILY 03/26/24 04/20/24 History Albuterol Sulfate [Ventolin HFA] 2 puff INHALATION RT-Q6H PRN 04/20/24 04/20/24 History Allergies Allergy/AdvReac Type Severity Reaction Status Date / Time ciprofloxacin [From Cipro] AdvReac Nausea & Verified 04/24/24 13:38 Vomiting ciprofloxacin HCl AdvReac Nausea & Verified 04/24/24 13:38 [From Cipro] Vomiting clindamycin AdvReac Nausea & Verified 04/24/24 13:38 Vomiting sulfamethoxazole AdvReac Nausea & Verified 04/24/24 13:38 [From Bactrim] Vomiting trimethoprim [From Bactrim] AdvReac Nausea & Verified 04/24/24 13:38 Vomiting Physical Exam Vitals: Vital Signs Temp Pulse Pulse Resp BP BP Pulse Ox 04/25/24 16:15 97.8 F 89 16 145/74 96 04/25/24 09:00 92 159/77 04/25/24 08:00 98.2 F 92 18 159/68 92 L 04/25/24 07:00 87 13 159/68 95 04/25/24 06:00 80 10 L 117/54 90 L 04/25/24 05:00 92 27 H 152/72 91 L 04/25/24 04:00 90 19 161/72 94 L 04/25/24 03:00 96 7 L 153/80 93 L 04/25/24 02:00 92 25 H 92 L 04/25/24 01:00 98 21 155/81 95 04/25/24 00:00 98.1 F 98 13 135/73 96 04/24/24 23:28 96 15 155/82 94 L 04/24/24 23:00 101 H 19 150/80 93 L 04/24/24 22:00 98 16 147/75 92 L 04/24/24 21:00 104 H 17 150/83 92 L 04/24/24 20:00 100 25 H 163/75 95 04/24/24 19:30 97 19 152/81 96 04/24/24 19:00 97.7 F 98 19 158/66 95 04/24/24 16:46 94 16 131/66 93 L Intake and Output 04/25/24 04/25/24 04/25/24 06:59 14:59 22:59 Intake Total 640 525 Output Total 1700 Balance -1060 525 Intake: IV 400 75 Sodium Chloride 0.9% 1, 400 75 000 ml @ 75 mls/hr IV . [id number] [facility] Rx#:[id number] Oral 240 450 Output: Urine 1700 Other: Voiding Method Bedside Commode Bedside Commode Weight 90.3 kg 90.3 kg Results 04/25/24 03:38 04/25/24 03:38 Cardiac Enzymes 04/25/24 04/25/24 Range/Units 00:45 03:38 Troponin I 3.260 H* 11.500 H* (0.000-0.034) ng/mL CBC 04/25/24 Range/Units 03:38 WBC 12.8 H (3.8-10.6) k/uL RBC 3.81 (3.80-5.40) m/uL Hgb 9.7 L (11.4-16.0) gm/dL Hct 33.1 L (34.0-46.0) % Plt Count 377 (150-450) k/uL Comprehensive Metabolic Panel 04/25/24 Range/Units 03:38 Sodium 132 L (137-145) mmol/L Potassium 4.8 (3.5-5.1) mmol/L Chloride 99 (98-107) mmol/L Carbon Dioxide 21 L (22-30) mmol/L BUN 19 H (7-17) mg/dL Creatinine 0.81 (0.52-1.04) mg/dL Glucose 285 H (74-99) mg/dL Calcium 8.9 (8.4-10.2) mg/dL Current Medications Generic Name Dose Route Start Last Admin Trade Name Freq PRN Reason Stop Dose Admin Acetaminophen 650 mg 04/20/24 20:18 04/25/24 15:42 Acetaminophen Tab 325 Mg Tab PO 650 mg Q6HR PRN Administration Mild Pain or Fever > 100.5 Albuterol Sulfate 2 puff 04/20/24 20:29 Albuterol Hfa Inhaler INHALATION RT-Q6H PRN Shortness Of Breath Alprazolam 0.25 mg 04/25/24 13:16 Alprazolam 0.25 Mg Tab PO Q6HR PRN Mild Anxiety Alprazolam 0.5 mg 04/25/24 13:16 Alprazolam 0.5 Mg Tab PO Q6HR PRN Moderate Anxiety Aspirin 81 mg 04/21/24 09:45 04/25/24 08:41 Aspirin 81 Mg PO 81 mg DAILY [facility] Administration Calcium Carbonate/Glycine 1,000 mg 04/21/24 11:15 04/24/24 09:14 Calcium Carbonate 500 Mg Chewable PO 1,000 mg Q4HR PRN Administration Dyspepsia Clopidogrel Bisulfate 75 mg 04/26/24 09:00 Clopidogrel 75 Mg Tab PO DAILY [facility] Enoxaparin Sodium 40 mg 04/21/24 11:30 04/25/24 08:38 Enoxaparin 40 Mg/0.4 Ml Syringe SQ 40 mg DAILY [facility] Administration Famotidine 20 mg 04/24/24 21:00 04/25/24 08:40 Famotidine 20 Mg Tab PO 20 mg BID [facility] Administration Gabapentin 100 mg 04/24/24 16:00 04/25/24 15:42 Gabapentin 100 Mg Cap PO 100 mg TID [facility] Administration Lisinopril/HCTZ 1 each 04/21/24 09:00 04/25/24 08:41 Lisinopril-Hctz 20-25 Mg 1 Each Tab PO 1 each DAILY [facility] Administration Hydromorphone HCl 0.5 mg 04/20/24 20:18 04/24/24 21:18 Hydromorphone 0.5 Mg/0.5 Ml Syringe IVP 0.5 mg Q3HR PRN Administration Moderate Pain (Scale 4 to 6) Hydromorphone HCl 1 mg 04/20/24 20:18 Hydromorphone 1 Mg/Ml 1 Ml Syringe IVP Q3HR PRN Severe Pain (Scale 7 to 10) Vancomycin HCl 1,500 mg/ 500 mls @ 167 mls/hr 04/20/24 21:00 04/25/24 13:11 Sodium Chloride IVPB 167 mls/hr Q16H [facility] Administration Sodium Chloride 1,000 mls @ 75 mls/hr 04/20/24 20:30 04/25/24 08:43 Saline 0.9% IV Not Given .[id number] [facility] Ertapenem 1 gm/ Sodium 50 mls @ 100 mls/hr 04/23/24 17:15 04/25/24 08:41 Chloride IVPB 100 mls/hr DAILY [facility] Administration Protocol Heparin Sodium (Porcine) 10, 1,001 mls @ 999 mls/hr 04/26/24 07:00 000 unit/ Sodium Chloride IRRIGATION 04/26/24 23:00 ONCE PRN INTRA-OP Heparin Sodium (Porcine) 2,500 250.5 mls @ 250 mls/hr 04/26/24 07:00 unit/ Sodium Chloride IRRIGATION 04/26/24 23:00 ONCE PRN INTRA-OP Insulin Aspart 0 unit 04/20/24 21:00 04/25/24 16:18 Insulin Aspart (Novolog) 100 Unit/Ml Vial SQ Not Given ACHS [facility] Protocol Insulin Detemir 30 unit 04/21/24 21:00 04/24/24 21:18 Insulin Detemir (Levemir) 100 Unit/Ml Syr SQ 30 unit HS [facility] Administration Insulin Human Regular 30 unit 04/21/24 21:00 04/25/24 08:37 Insulin Regular 100 Unit/Ml Vial (Iv) SQ 30 unit BID [facility] Administration Lactulose 20 gm 04/21/24 11:15 Lactulose 20 Gm/30 Ml Cup PO DAILY PRN Constipation Lorazepam 0.5 mg 04/21/24 11:15 04/25/24 03:31 Lorazepam 0.5 Mg Tab PO 0.5 mg Q6HR PRN Administration Anxiety Melatonin 3 mg 04/21/24 11:15 Melatonin 3 Mg Tablet PO HS PRN Insomnia Metoprolol Tartrate 50 mg 04/20/24 21:00 04/25/24 08:41 Metoprolol Tartrate 50 Mg Tab PO 50 mg BID [facility] Administration Naloxone HCl 0.2 mg 04/20/24 20:18 Naloxone 0.4 Mg/Ml 1 Ml Vial IV Q2M PRN Opioid Reversal Nitroglycerin 0.4 mg 04/25/24 13:16 Nitroglycerin Sl Tabs 0.4 Mg Tab SUBLINGUAL Q5M PRN Chest Pain Ondansetron HCl 4 mg 04/20/24 20:18 04/24/24 13:59 Ondansetron 4 Mg/2 Ml Vial IVP 4 mg Q8HR PRN Administration Nausea And Vomiting Intake and Output 04/25/24 04/25/24 04/25/24 06:59 14:59 22:59 Intake Total 640 525 Output Total 1700 Balance -1060 525 Intake: IV 400 75 Sodium Chloride 0.9% 1, 400 75 000 ml @ 75 mls/hr IV . [id number] [facility] Rx#:[id number] Oral 240 450 Output: Urine 1700 Other: Voiding Method Bedside Commode Bedside Commode Weight 90.3 kg 90.3 kg Patient Weight 04/26/24 06:59 Weight 90.3 kg 04/25/24 03:38 04/25/24 03:38
--- NOTE | 2024-04-25 16:54 | P.PN ---
Subjective Progress Note Date: 04/25/24 Principal diagnosis: Left diabetic foot ulcer/for surgical infection Patient is a 58-year-old female with a past medical history significant for diabetes mellitus hypertension hyperlipidemia [place] recently admitted to hospital with back left fifth toe gangrene diabetic foot infection in this patient who is status post left fifth toe amputation on 03/29/2024, presenting back to the hospital worsening wound to the left fifth toe amputation site with some discoloration. On today's evaluation that is 04/25/2024,the patient surgery was postponed yesterday apparently the patient did have apneic episode at the time of intubation subsequently transferred to the ICU, patient denies any fever or any chills, patient is breathing comfortably on room air, the patient denies chest pain shortness of breath and no significant cough, patient denies abdominal pain, no nausea vomiting or diarrhea and denies any worsening pain to the left foot. Patient white count is 12.8, creatinine 0.81. Objective - Vital Signs Vital signs: Vital Signs Temp 98.2 F 04/25/24 08:00 Pulse 92 04/25/24 09:00 Resp 18 04/25/24 08:00 BP 159/77 04/25/24 09:00 Pulse Ox 92 L 04/25/24 08:00 FiO2 Intake & Output 04/24/24 04/25/24 04/25/24 18:59 06:59 18:59 Intake Total 700 940 525 Output Total 2600 Balance 700 -1660 525 Weight 90.3 kg 90.3 kg Intake: IV 700 700 75 Sodium Chloride 0.9% 1, 700 75 000 ml @ 75 mls/hr IV . [id number] [facility] Rx#:[id number] Oral 240 450 Output: Urine 2600 Other: Voiding Method External Catheter Bedside Commode Bedside Commode - Exam GENERAL DESCRIPTION: Middle-aged female lying in bed in no distress RESPIRATORY SYSTEM: Unlabored breathing , decreased breath sounds at bases HEART: S1 S2 regular rate and rhythm , ABDOMEN: Soft , no tenderness EXTREMITIES: Left foot is currently dressed no drainage on the dressing - Labs CBC & Chem 7: 04/25/24 03:38 04/25/24 03:38 Labs: Abnormal Lab Results - Last 24 Hours (Table) 04/24/24 04/24/24 04/25/24 Range/Units 17:23 19:34 00:45 WBC (3.8-10.6) k/uL Hgb (11.4-16.0) gm/dL Hct (34.0-46.0) % MCHC (31.0-37.0) g/dL Neutrophils # (1.3-7.7) k/uL Lymphocytes # (1.0-4.8) k/uL D-Dimer (<0.60) mg/L FEU Sodium (137-145) mmol/L Carbon Dioxide (22-30) mmol/L BUN (7-17) mg/dL Glucose (74-99) mg/dL POC Glucose (mg/dL) 242 H 265 H (70-110) mg/dL Troponin I 3.260 H* (0.000-0.034) ng/mL 04/25/24 04/25/24 04/25/24 Range/Units 00:45 03:38 03:38 WBC 12.8 H (3.8-10.6) k/uL Hgb 9.7 L (11.4-16.0) gm/dL Hct 33.1 L (34.0-46.0) % MCHC 29.2 L (31.0-37.0) g/dL Neutrophils # 12.1 H (1.3-7.7) k/uL Lymphocytes # 0.5 L (1.0-4.8) k/uL D-Dimer 3.25 H (<0.60) mg/L FEU Sodium 132 L (137-145) mmol/L Carbon Dioxide 21 L (22-30) mmol/L BUN 19 H (7-17) mg/dL Glucose 285 H (74-99) mg/dL POC Glucose (mg/dL) (70-110) mg/dL Troponin I (0.000-0.034) ng/mL 04/25/24 04/25/24 04/25/24 Range/Units 03:38 08:30 11:32 WBC (3.8-10.6) k/uL Hgb (11.4-16.0) gm/dL Hct (34.0-46.0) % MCHC (31.0-37.0) g/dL Neutrophils # (1.3-7.7) k/uL Lymphocytes # (1.0-4.8) k/uL D-Dimer (<0.60) mg/L FEU Sodium (137-145) mmol/L Carbon Dioxide (22-30) mmol/L BUN (7-17) mg/dL Glucose (74-99) mg/dL POC Glucose (mg/dL) 280 H 217 H (70-110) mg/dL Troponin I 11.500 H* (0.000-0.034) ng/mL Microbiology - Last 24 Hours (Table) 04/20/24 16:55 Anaerobic Culture - Preliminary Toe - Left Fifth Anaerobic Gm Negative Bacilli Anaerobic Gm Negative Bacilli#2 Assessment and Plan (1) Left foot infection Current Visit: Yes Status: Acute Code(s): L08.9 - LOCAL INFECTION OF THE SKIN AND SUBCUTANEOUS TISSUE, UNSP SNOMED Code(s): 294724201 (2) Allergy to multiple antibiotics Current Visit: No Status: Acute Code(s): Z88.1 - ALLERGY STATUS TO OTHER ANTIBIOTIC AGENTS SNOMED Code(s): 126972155 (3) Cellulitis of left foot Current Visit: No Status: Acute Code(s): L03.116 - CELLULITIS OF LEFT LOWER LIMB SNOMED Code(s): 44197218494856475 Plan: 1patient with a left fifth toe diabetic foot wound and this patient was status post amputation of the left fifth toe now with evidence of nonhealing wound to the left fifth amputation site and some gangrene failing outpatient oral Augmentin therapy we will need to cover for resistant gram-positive as well as gram-negative pathogen. 2patient has been evaluated by vascular surgery and planning for debridement of the wound, surgery has been postponed at this point awaiting cardiac workup 3patient initial culture currently growing ESBL E. coli as well as anaerobes patient is covered with Invanz, will discontinue vancomycin as no gram-positive growth Dictation was produced using [employer] dictation software. please excuse any grammatical, word or spelling errors. Time with Patient: Less than 30
--- NOTE | 2024-04-25 17:41 | CA ---
Transthoracic Echo Report Name: Rima Smyth Age: 58 Gender: F : 1965 Exam Date: 04/25/2024 07:57 Exam Location: [place] [facility] Ht (in): 64 Wt (lb): 184 Ordering Physician: Figueroa Jeffery Attending/Referring Phys: Cokeman Elena Henderson RDCS Procedure CPT: Indications: Cardiac Arrest Cardiac Hx: Technical Quality: Fair Contrast 1: Definity Total Dose (mL): 2 Contrast 2: Total Dose (mL): MEASUREMENTS (Male / Female) Normal Values 2D ECHO LV Diastolic Diameter PLAX 4.6 cm 4.2 - 5.9 / 3.9 - 5.3 cm LV Systolic Diameter PLAX 3.7 cm IVS Diastolic Thickness 0.9 cm 0.6 - 1.0 / 0.6 - 0.9 cm LVPW Diastolic Thickness 1.2 cm 0.6 - 1.0 / 0.6 - 0.9 cm LV Relative Wall Thickness 0.5 RV Internal Dim ED PLAX 1.8 cm LA Systolic Diameter LX 3.7 cm 3.0 - 4.0 / 2.7 - 3.8 cm M-MODE Aortic Root Diameter MM 2.8 cm LA Systolic Diameter MM 4.0 cm LA Ao Ratio MM 1.4 AV Cusp Separation MM 1.7 cm DOPPLER Mitral E Point Velocity 128.2 cm/s Mitral A Point Velocity 101.6 cm/s Mitral E to A Ratio 1.3 MV Deceleration Time 250.3 ms MV E' Velocity 6.4 cm/s Mitral E to MV E' Ratio 20.2 TR Peak Velocity 279.9 cm/s TR Peak Gradient 31.3 mmHg FINDINGS Left Ventricle Left ventricular ejection fraction is estimated at 35-40 %. Mildly increased posterior wall thickness. Mid to distal anterior wall hypokinesia. [place] akinetic. Left ventricular cavity size normal. Left ventricular cavity size normal. No evidence of apical thrombus on contrast imaging Right Ventricle Normal right ventricular size and function. Right ventricular systolic pressure estimated at 41 mmHg. Mild pulmonary hypertension. Right Atrium Normal right atrial size. Left Atrium Mild left atrial dilatation. Mitral Valve Structurally normal mitral valve. Mild to moderate mitral regurgitation. No mitral stenosis. Aortic Valve Trileaflet aortic valve. No aortic valve stenosis or regurgitation. Tricuspid Valve Structurally normal tricuspid valve. Trace to mild tricuspid regurgitation. Pulmonic Valve Structurally normal pulmonic valve. Trace pulmonic regurgitation. No pulmonic stenosis. Pericardium No pericardial or pleural effusion. Aorta Normal size aortic root and proximal ascending aorta. CONCLUSIONS LVEF 35 to 40% Mid to distal anterior septal wall hypokinesia. Akinetic apex. Elevated RVSP at 41 mmHg Mild LA dilatation Mild to moderate MR Previewed by: Dr Lj Woo (Electronically Signed) Final Date: 25 April 2024 17:40
[2024-04-25 19:58] LABS: Glucose,Whole Blood 173 mg/dL (70-110)
[2024-04-26] MEDS: ASPIRIN 325 MG TAB PO STA (04:19)
[2024-04-26] MEDS: ATORVASTATIN 80 MG TAB PO STA ×2 (04:20→17:52)
[2024-04-26] MEDS: CLOPIDOGREL 75 MG TAB PO SCH (05:19)
[2024-04-26] MEDS: ALPRAZolam 0.25 MG TAB PO PRN (05:19)
[2024-04-26 06:04] LABS: Glucose,Whole Blood 185 mg/dL (70-110)
[2024-04-26] MEDS ORDERED: HEPARIN SODIUM,PORCINE (1 ML) 2,500 UNIT in SODIUM CHLORIDE 0.9% 250 ML IRRIGATION PRN (07:00)
[2024-04-26] MEDS ORDERED: HEPARIN SODIUM,PORCINE 10,000 UNIT in SODIUM CHLORIDE 0.9% 1,000 ML IRRIGATION PRN (07:00)
[2024-04-26] MEDS ORDERED: HEPARIN SODIUM 1,000 UN/ML (10ML VL) ONE (07:15)
[2024-04-26] MEDS ORDERED: fentaNYL (PF) 50 MCG/ML 2 ML AMP ONE (07:15)
[2024-04-26] MEDS ORDERED: LIDOCAINE 1% INJ 10MG/ML (20 ML MDV) ONE (07:15)
[2024-04-26] MEDS ORDERED: VERAPAMIL 2.5 MG/ML 2 ML AMP ONE (07:16)
[2024-04-26] MEDS: fentaNYL (PF) 50 MCG/ML 2 ML AMP IVP ONE ×2 (07:35→07:48)
[2024-04-26] MEDS: MIDAZOLAM 2 MG/2 ML VIAL IVP ONE (07:35)
[2024-04-26] MEDS: LIDOCAINE 1% INJ 10MG/ML (20 ML MDV) SQ ONE (07:38)
[2024-04-26] MEDS: SODIUM CHLORIDE 0.9% 1,000 ML IV ONE (07:43)
[2024-04-26] MEDS ORDERED: FUROSEMIDE 10 MG/ML 4 ML VIAL ONE (08:01)
[2024-04-26] MEDS: FUROSEMIDE 10 MG/ML 4 ML VIAL IVP ONE (08:15)
--- NOTE | 2024-04-26 08:48 | CC ---
CARDIAC CATHETERIZATION REPORT INDICATION: Acute lbg-AL-laazcbd elevation IL. PROCEDURE NOTE: After obtaining informed consent, left heart catheterization and coronary angiogram were performed via the right femoral artery using standard Roseline catheters. The patient tolerated the procedure well without any obvious immediate complications. I could not do a radial catheterization on her. Her radial pulses are very feeble. She has peripheral arterial disease and had prior revascularization on the left side and even have right femoral pulses diminished, but we were able to obtain the access uneventfully. The patient received moderate conscious sedation. Total sedation time was 23 minutes. FINDINGS: 1. Hemodynamics: Left ventricular end-diastolic pressure is 20 mm. There is no significant gradient across the aortic valve. 2. Left Ventriculogram: Left ventriculogram is not performed. 3. Angiographic Data: a.Right Coronary Artery: Right coronary artery is a large dominant vessel that was previously stented in the mid to distal portion. She has a long segment of severe stenosis, at its worst it is an 80% to 90% stenosed. Left main coronary artery is free of disease, divides into left anterior descending coronary artery and a nondominant circumflex coronary artery. Circumflex coronary artery shows a 30% stenosis. LAD is diffusely diseased, subtotally occluded in its midportion, has severe stenosis within the stent, just past the stent and previous to the stent and distal LAD tapers into a very small caliber vessel. CONCLUSIONS: Three-vessel coronary artery disease with severe stenosis involving large dominant right coronary artery and LAD. PLAN: I am going to have Dr. Madrid, the door to door selling agent to perform her previous intervention, review the angiographic data, and advise on revascularization. MMODL / IJN: [id number] /
[2024-04-26] MEDS ORDERED: RX INFO: IV CONTRAST WAS GIVEN 1 EACH MISC MISCELLANE PRN (08:51)
[2024-04-26] MEDS: IOPAMIDOL-370 100ML BTL INJ ONE (09:00)
--- NOTE | 2024-04-26 09:55 | P.PN ---
Subjective Progress Note Date: 04/26/24 Principal diagnosis: Nonhealing, infected left foot wound Patient underwent cardiac catheterization this morning with findings of three- vessel coronary artery disease with severe stenosis involving large dominant right coronary artery and LAD. Plan is for revascularization. No plans from vascular surgery moving forward surgical intervention due to patient's cardiac status. Objective - Vital Signs Vital signs: Vital Signs Temp 97.8 F 04/26/24 04:00 Pulse 86 04/26/24 04:00 Resp 16 04/26/24 04:00 BP 169/75 04/26/24 04:00 Pulse Ox 95 04/26/24 04:00 FiO2 Intake & Output 04/25/24 04/26/24 04/26/24 18:59 06:59 18:59 Intake Total 645 Balance 645 Weight 90.3 kg 87.5 kg Intake: IV 75 Sodium Chloride 0.9% 1, 75 000 ml @ 75 mls/hr IV . [id number] [facility] Rx#:[id number] Oral 570 Other: Voiding Method Bedside Commode # Voids 1 - Exam General appearance: The patient is alert, oriented, appears in no acute distress. HET: Head is normocephalic and atraumatic. Neck: Supple. Abdomen: Soft, nondistended. Extremities: Left foot with dressing clean dry and intact. Palpable DP pulse. Neurological: No focal deficits. Alert and oriented. - Labs CBC & Chem 7: 04/25/24 03:38 04/25/24 03:38 Labs: Abnormal Lab Results - Last 24 Hours (Table) 04/25/24 04/25/24 04/26/24 Range/Units 11:32 19:57 06:03 POC Glucose (mg/dL) 217 H 173 H 185 H (70-110) mg/dL Microbiology - Last 24 Hours (Table) 04/20/24 19:03 Blood Culture - Final Blood 04/20/24 19:18 Blood Culture - Final Blood 04/20/24 16:55 Anaerobic Culture - Final Toe - Left Fifth Anaerobic Gm Negative Bacilli Anaerobic Gm Negative Bacilli#2 Assessment and Plan Assessment: 1. Infected left fifth toe amputation site 2. Left fifth toe amputation 03/28/2024 for gangrene 3. Diabetes mellitus 4. Medication noncompliance, patient is refusing ordered medications during her hospitalization including her insulin in IV antibiotics 5. Hyperglycemia 6. Brief PEA cardiac arrest with CPR initiated, likely secondary to anesthesia induction 7. Coronary artery disease, three-vessel coronary artery disease with severe stenosis involving large dominant right coronary artery and LAD Plan: 1. Continue symptomatic and supportive care 2. Continue IV antibiotics per recommendations from infectious disease. Discussed with patient importance of medication compliance to help with infection and reduce risk of further amputation. Patient verbalized understanding. 3. Resume Plavix 4. Wound VAC to left fifth toe amputation site 5. Cardiology on consultation, appreciate their recommendations. Patient is not cleared for any surgical intervention at this time. 6. Wound VAC to left fifth toe amputation site 7. No plans on surgical debridement 8. Consult wound clinic for further recommendations and wound care 9. Rest of medical management per primary medical team 10. Discussed importance of medication compliance for blood sugar control and role it plays in peripheral vascular disease, as well as healing of wound and prevention of requiring further amputation. Patient verbalized understanding. Thank you for this consultation, we will sign off at this time. The impression and plan of care has been dictated as directed. Dr. Ledesma I performed a history and examination of this patient, discussed the same with the dictator. I agree with the dictator's note ,documented as a scribe. Any additional findings or plans will be noted.
--- NOTE | 2024-04-26 10:57 | P.CONS ---
History of Present Illness - Reason for Consult Consult date: 04/26/24 wound care - History of Present Illness This is a 58-year-old patient with known history of a previous amputation being seen on 3 S. for a nonhealing ulceration with bone necrosis. Patient has eschar and minimal to no granulation seen. Patient is noncompliant. At this time she has a negative pressure wound VAC in place. Patient was scheduled for a surgical debridement however patient coded before the procedure was started. Ulceration measures approximately 5 x 4 x 4 cm with exposed bone.Patient's past medical history is significant for diabetes Review Of Systems: Constitutional: No fever, no chills, no night sweats. No weight change. No weakness, fatigue or lethargy. No daytime sleepiness. Integumentary:reports wounds, no lesions. No rash or pruritus. No unusual bruising. No change in hair or nails. Physical exam: General Appearance: Alert, cooperative, no distress, appears stated age. Skin: See HPI all other Skin color, texture, tugor normal, no rashes or lesions. Neurologic: Alert oriented x3 Assessment: 1. 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 Osteomyelitis 3. Diabetic foot ulceration Plan: 1. Apply Santyl saline moist gauze, dry gauze, rolled gauze and secure with paper tape. Change daily. We will discontinue negative pressure wound VAC. Patient is scheduled to see a wound care center in [place] next week. Thank you for the consultation any questions please contact the wound care center DNP note has been reviewed and discussed with Dr. Munoz and the impression and plan of care has been directed as dictated. Past Medical History Past Medical History: Asthma, Blood Disorder, Coronary Artery Disease (CAD), Diabetes Mellitus, Eye Disorder, GERD/Reflux, Hyperlipidemia, Hypertension, [place]o cardial Infarction ([place]), Pneumonia, Skin Disorder, Vascular Disorder Additional Past Medical History / Comment(s): Type II diabetic IDDM. retinitis pigmentosa (losing peripheral vision), Hx of cellulitis lt foot March 03, 2024. Circulation issues to lt leg-recent February 2024. IBD. Recent hospitalization @[facility] February-pt states she was anemic. States Hgb at discharge was 8.4. Pt states she had re-draw last week @[facility] pt lab and it was Hgb was 9.6. She states she was put on Multivitamin. Last Myocardial Infarction Date:: 05/2015 History of Any Multi-Drug Resistant Organisms: ESBL Year Discovered:: 04/23/24 - ESBL MDRO Source:: TOE Past Surgical History: Heart Catheterization, Heart Catheterization With Stent Additional Past Surgical History / Comment(s): boil under armpit (2000) Cardiac stent x3. Stent to lt leg March 07, 2024. Past Anesthesia/Blood Transfusion Reactions: No Reported Reaction Additional Past Anesthesia/Blood Transfusion Reaction / Comm: No hx of blood transfusion. Date of Last Stent Placement:: 05/30/2015 Past Psychological History: Anxiety Smoking Status: Former smoker Past Alcohol Use History: None Reported Past Drug Use History: None Reported - Past Family History Mother Family Medical History: Hypertension Additional Family Medical History / Comment(s): borderline diabetic Father Family Medical History: Cancer Additional Family Medical History / Comment(s): leukemia, stents placed, at 81 years old Medications and Allergies Home Medications Medication Instructions Recorded Confirmed Type Lisinopril/Hydrochlorothiazide 1 tab PO DAILY 06/23/15 04/20/24 History [Zestoretic -] Aspirin EC [Ecotrin Low Dose] 81 mg PO DAILY 03/03/24 04/20/24 History Insulin Glargine,Hum.rec.anlog 40 units SQ HS 03/03/24 04/20/24 History [Lantus Solostar Pen] Insulin Regular [humuLIN R] 40 units SQ BID 03/03/24 04/20/24 History Metoprolol Tartrate [Lopressor] 50 mg PO BID 03/03/24 04/20/24 History Clopidogrel [Plavix] 75 mg PO DAILY 03/26/24 04/20/24 History Albuterol Sulfate [Ventolin HFA] 2 puff INHALATION RT-Q6H PRN 04/20/24 04/20/24 History Allergies Allergy/AdvReac Type Severity Reaction Status Date / Time ciprofloxacin [From Cipro] AdvReac Nausea & Verified 04/24/24 13:38 Vomiting ciprofloxacin HCl AdvReac Nausea & Verified 04/24/24 13:38 [From Cipro] Vomiting clindamycin AdvReac Nausea & Verified 04/24/24 13:38 Vomiting sulfamethoxazole AdvReac Nausea & Verified 04/24/24 13:38 [From Bactrim] Vomiting trimethoprim [From Bactrim] AdvReac Nausea & Verified 04/24/24 13:38 Vomiting Physical Exam Vitals: Vital Signs Temp Pulse Pulse Resp BP Pulse Ox 04/26/24 10:25 81 17 133/71 93 L 04/26/24 10:07 97.6 F 81 18 158/85 96 04/26/24 04:00 97.8 F 86 16 169/75 95 04/26/24 00:00 88 17 168/78 94 L 04/25/24 20:06 98 F 84 18 153/70 94 L 04/25/24 16:15 97.8 F 89 16 145/74 96 Intake and Output 04/25/24 04/26/24 04/26/24 22:59 06:59 14:59 Intake Total 120 50 Output Total 1100 Balance 120 -1050 Intake: IV 50 Oral 120 Output: Urine 1100 Other: Voiding Method Indwelling Catheter # Voids 1 Weight 87.5 kg Results CBC & Chem 7: 04/25/24 03:38 04/25/24 03:38 Labs: Abnormal Lab Results - Last 24 Hours (Table) 04/25/24 04/25/24 04/26/24 Range/Units 11:32 19:57 06:03 POC Glucose (mg/dL) 217 H 173 H 185 H (70-110) mg/dL Microbiology - Last 24 Hours (Table) 04/20/24 19:03 Blood Culture - Final Blood 04/20/24 19:18 Blood Culture - Final Blood 04/20/24 16:55 Anaerobic Culture - Final Toe - Left Fifth Anaerobic Gm Negative Bacilli Anaerobic Gm Negative Bacilli#2 Assessment and Plan (1) Non-pressure chronic ulcer of other part of left foot with necrosis of bone Current Visit: Yes Status: Acute Code(s): L97.524 - NON-PRS CHRONIC ULCER OTH PRT LEFT FOOT W NECROSIS OF BONE SNOMED Code(s): 64955189026997159 (2) Osteomyelitis, unspecified Current Visit: Yes Status: Acute Code(s): M86.9 - OSTEOMYELITIS, UNSPECIFIED SNOMED Code(s): 33801780 (3) Diabetic infection of left foot Current Visit: No Status: Acute Code(s): E11.628 - TYPE 2 DIABETES MELLITUS WITH OTHER SKIN COMPLICATIONS; L08.9 - LOCAL INFECTION OF THE SKIN AND SUBCUTANEOUS TISSUE, UNSP SNOMED Code(s): 56491416
[2024-04-26 11:26] LABS: Glucose,Whole Blood 164 mg/dL (70-110)
--- NOTE | 2024-04-26 12:06 | P.GSCN ---
History of Present Illness Consult date: 04/26/24 Reason for Consult: Multivessel coronary artery disease, non-ST elevated myocardial infarction this admission, evaluate for myocardial vascularization surgery Requesting physician: Cristino Donahue History of present illness: This is a 58-year-old female patient who follows on an outpatient basis for primary care with Dr. Dylon Cortes. She has a past medical history significant for coronary artery disease with previous PCI, diabetes mellitus type 2, peripheral arterial disease with history of left lower extremity intervention March 07, 2024 on Plavix, hypertension, hyperlipidemia, anemia of chronic disease, gangrene left fifth toe with recent amputation of left fifth toe and nonhealing ulcer, medication noncompliance, recent brief PEA cardiac arrest with CPR initiated, asthma, anxiety and remote history of nicotine dependence. On April 20, 2024 the patient presented to the emergency department here at [facility] status post left fifth toe amputation on March 28, [address] Ledesma. She was complaining of pain to the area of her amputation site, nonhealing ulcer and possible osteomyelitis. She was on a 10-day course of Augmentin on an outpatient basis and was prompted to come to the emergency department for further evaluation of her wound site. She denied any recent fever, chills, nausea, vomiting, diarrhea, constipation, chest pain, shortness of breath, hemoptysis, hematemesis, headache, presyncope or syncope. Laboratory results on April 20, 2024 showed a WBC count of 11.8, hemoglobin 10.7, hematocrit 34.0, platelets 437, sodium 132, potassium 5.3, chloride 97, BUN 26, creatinine 1.0, glucose 385, plasmic lactic acid venous 1.6, and C-reactive protein 5.2. Due to the patient's presenting symptoms she was admitted to the hospital for further evaluation and treatment recommendations. Subsequently the patient was scheduled for debridement of her left foot wound on April 24, 2024, however during induction of anesthesia the patient became hypoxic and asystole with ACLS protocol initiated. The patient did have return of spontaneous circulation, was subsequently extubated and surgery was not performed and was eventually weaned off her vasopressor support. Serial troponins were drawn and were positive as high as 11.500. Subsequently, due to the patient's history of coronary artery disease, her elevated troponins and cardiac arrest cardiology was consulted and the patient was taken for cardiac catheterization today April 26, 2024 with a heart cath results revealing triple-vessel coronary artery disease with severe stenosis involving a large dominant right coronary artery and left anterior descending coronary artery. A transthoracic 2D echocardiogram was completed on April 25, 2024 which showed a left ventricular ejection fraction estimated at 35 to 40%, mild to moderate mitral valve regurgitation, trace to mild tricuspid valve regurgitation, no pericardial effusion or pleural effusion. Due to the patient's findings on her heart catheterization a consult was placed to Dr. Rudy Lozano from cardiothoracic surgery for further evaluation and treatment recommendations including myocardial vascularization surgery. Review of Systems A review of systems was completed and was negative except as mentioned in the HPI. Past Medical History Past Medical History: Asthma, Blood Disorder, Coronary Artery Disease (CAD), Diabetes Mellitus, Eye Disorder, GERD/Reflux, Hyperlipidemia, Hypertension, Myoc ardial Infarction (VT), Pneumonia, Skin Disorder, Vascular Disorder Additional Past Medical History / Comment(s): Type II diabetic IDDM. retinitis pigmentosa (losing peripheral vision), Hx of cellulitis lt foot March 03, 2024. Circulation issues to lt leg-recent February 2024. IBD. Recent hospitalization @[facility] February-pt states she was anemic. States Hgb at discharge was 8.4. Pt states she had re-draw last week @[facility] out pt lab and it was Hgb was 9.6. She states she was put on Multivitamin. Last Myocardial Infarction Date:: 05/2015 History of Any Multi-Drug Resistant Organisms: ESBL Year Discovered:: 04/23/24 - ESBL MDRO Source:: TOE Past Surgical History: Heart Catheterization, Heart Catheterization With Stent Additional Past Surgical History / Comment(s): boil under armpit (2000) Cardiac stent x3. Stent to lt leg March 07, 2024. Past Anesthesia/Blood Transfusion Reactions: No Reported Reaction Additional Past Anesthesia/Blood Transfusion Reaction / Comm: No hx of blood transfusion. Date of Last Stent Placement:: 05/30/2015 Past Psychological History: Anxiety Smoking Status: Former smoker Past Alcohol Use History: None Reported Past Drug Use History: None Reported - Past Family History Mother Family Medical History: Hypertension Additional Family Medical History / Comment(s): borderline diabetic Father Family Medical History: Cancer Additional Family Medical History / Comment(s): leukemia, stents placed, at 81 years old Medications and Allergies Home Medications Medication Instructions Recorded Confirmed Type Lisinopril/Hydrochlorothiazide 1 tab PO DAILY 06/23/15 04/20/24 History [Zestoretic -] Aspirin EC [Ecotrin Low Dose] 81 mg PO DAILY 03/03/24 04/20/24 History Insulin Glargine,Hum.rec.anlog 40 units SQ HS 03/03/24 04/20/24 History [Lantus Solostar Pen] Insulin Regular [humuLIN R] 40 units SQ BID 03/03/24 04/20/24 History Metoprolol Tartrate [Lopressor] 50 mg PO BID 03/03/24 04/20/24 History Clopidogrel [Plavix] 75 mg PO DAILY 03/26/24 04/20/24 History Albuterol Sulfate [Ventolin HFA] 2 puff INHALATION RT-Q6H PRN 04/20/24 04/20/24 History Allergies Allergy/AdvReac Type Severity Reaction Status Date / Time ciprofloxacin [From Cipro] AdvReac Nausea & Verified 04/24/24 13:38 Vomiting ciprofloxacin HCl AdvReac Nausea & Verified 04/24/24 13:38 [From Cipro] Vomiting clindamycin AdvReac Nausea & Verified 04/24/24 13:38 Vomiting sulfamethoxazole AdvReac Nausea & Verified 04/24/24 13:38 [From Bactrim] Vomiting trimethoprim [From Bactrim] AdvReac Nausea & Verified 04/24/24 13:38 Vomiting Surgical - Exam Vital Signs Temp Pulse Resp BP Pulse Ox 98.3 F 83 16 164/68 97 04/20/24 16:01 04/20/24 16:01 04/20/24 16:01 04/20/24 16:01 04/20/24 16:01 - General well developed, well nourished, no distress, no pain, chronically ill, obese (BMI 33.1 kg/m) - Eyes PERRL, normal ocular movement, no pale, no icteric - ENT normal pinna, normal nares, normal mucosa, no hearing loss, no congestion - Neck Neck is supple, no lymphadenopathy. no masses, no bruits, trachea midline, no venous distension - Respiratory Lung sounds essentially clear throughout. No wheezes, rhonchi or crackles. Respirations are symmetrical and nonlabored. - Cardiovascular Regular rhythm and rate. S1 and S2, negative for S3, gallop or murmur. - Abdomen Abdomen is soft, nontender and nondistended. Active bowel sounds present all 4 abdominal quadrants. No guarding or rigidity. - Genitourinary Deferred - Rectum Deferred - Integumentary Skin is warm and dry. No clubbing or cyanosis is present. Left lower extremity nonhealing ulcer with Wound VAC in place to her left fifth toe amputation site wound. no rash, no growths - Neurologic No focal deficits. - Musculoskeletal Moves all 4 extremities with equal strength bilateral. - Psychiatric oriented to time, oriented to person, oriented to place, speech is normal, memory intact Results - Labs 04/27/24 03:33 04/27/24 03:33 Abnormal Lab Results - Last 24 Hours (Table) 04/25/24 04/26/24 04/26/24 Range/Units 19:57 06:03 11:25 POC Glucose (mg/dL) 173 H 185 H 164 H (70-110) mg/dL Microbiology - Last 24 Hours (Table) 04/20/24 19:03 Blood Culture - Final Blood 04/20/24 19:18 Blood Culture - Final Blood 04/20/24 16:55 Anaerobic Culture - Final Toe - Left Fifth Anaerobic Gm Negative Bacilli Anaerobic Gm Negative Bacilli#2 - Imaging Additional studies: Cardiac catheterization films and transthoracic 2D echocardiogram films reviewed by Dr. Lozano Assessment and Plan Assessment: Triple-vessel coronary artery disease Coronary artery disease with previous PCI Cardiac arrest, with initiation of ACLS protocol and subsequent return of spon taneous circulation Non-ST elevated myocardial infarction this admission Left foot gangrene to her left fifth toe, status post amputation left fifth toe and nonhealing ulcer with possible osteomyelitis Peripheral arterial disease status post left lower extremity intervention in February 2024, currently on Plavix Diabetes mellitus type 2 Hypertension Hyperlipidemia Anemia of chronic disease History of asthma History of medical noncompliance Remote history of nicotine dependence Plan: The patient was seen and evaluated at her bedside in conjunction with Dr. Rudy Lozano from cardiothoracic surgery. Her chart and diagnostics reviewed. The findings on the cardiac catheterization films were reviewed with the patient by Dr. Lozano, treatment options were discussed including myocardial vascularization surgery. At this time due to the patient's nonhealing wound to her left lower extremity, the patient would be considered a high risk surgical patient. Dr. Lozano spoke with Dr. Donahue from cardiology and agree with proceeding with PCI. The patient is also refusing surgery at this time. Medical management and other comorbidities per primary care service. We will continue to follow the patient on an as-needed basis, please reconsult for further recommendations if needed. Thank you Dr. Donahue for this consult. I have personally seen and examined the patient, performed the documentation and the assessment and plan as written. Number of minutes spent on the visit: 30. YOHAN [place] Attending Addendum: Pt seen and evaluated with TIN FLIPPER above. Agree with his assess ment and plan. This is a 58 year-old F who has a hx of PVD s/p recent PCI to her LLE and toe amputation for gangrene. She was found to have elevated troponins and coronary angiography was performed which reveals AGENT SPA DESK of the LAD and significant RCA disease. Unfortunately given her recent gangrene, she is not a great candidate for bypass at this time. I spent 45 minutes reviewing the data and discussing these findings with the patient and care team. Time with Patient: Greater than 30
[2024-04-26] MEDS ORDERED: NITROGLYCERIN SL TABS 0.4 MG TAB SUBLINGUAL PRN (12:59)
--- NOTE | 2024-04-26 13:35 | P.PN ---
Progress Note - Text Progress Note Date: 04/26/24 Chief Complaint: Left foot infection Patient is a 58-year-old female with known history of coronary disease status post stent placement, diabetes type 2 insulin-dependent, hypertension, asthma and history of retinitis pigmentosa, anxiety 03/05/2024: CT angiogram of the abdomen aorta with runoff showed heavily calcified bilateral lower extremity arterial vasculature involving the superficial femoral arteries and extending inferiorly to the popliteal artery to the feet is limited due to severe atherosclerotic plaque. Patient was discharged from the hospital on March [address] Ledesma. Left toe was felt will probably demarcate. With gangrene. March 28: Left fifth toe ray amputation carried out by Dr. Ledesma. Patient did not return to the office outpatient to see Dr. Ledesma on April 08. There was some odor from the amputation site. Was given 10-day course of Augmentin. Patient now presents with increasing drainage and highly sensitive area of the left foot. No fever no chills. Appetite not too good. Has been using a walker April 22: Sitting at the edge of bed. Seen earlier by Dr. Haines from vascular. Plan for local debridement and deep tissue culture on April 24. Also seen by ID. Patient IV cefepime and vancomycin. And Flagyl. Eating 100% April 23: Resting in bed. Pending debridement of wound tomorrow. Getting IV cefepime IV vancomycin. Wound culture growing E. coli. April 24: Saw the patient this morning. Resting bed. Pending debridement. On antibiotics. NPO. IV this afternoon I got a call from Dr. Ledesma vascular surgery. Patient had respiratory compromise had to be intubated. Moved to the ICU. April 25: Patient in the ICU. Yesterday when patient is given anesthesia patient had a cardiac arrest. Had to be intubated. Was shortly extubated t after. Debridement was postponed. Patient's troponin became positive. Peaked at 11.5. He is planning for a cardiac catheterization. Patient initially refused antibiotics feeling is causing her bloating. I did explain to the patient that several of the reasons for the same. Has agreed to take antibiotics. On IV heparin EKG showed ST depression and some T wave changes April 26: Underwent cardiac catheterization by Dr. Andrea Donahue this morning. It showed: Long segment of severe stenosis 80 to 90% RCA. Circumflex 30%. LAD is diffusely diseased subtotally occluded in its midportion. Severe stenosis within the stent. Cardiology decided to do a stent to be done on Monday. Also seen by the cardiothoracic team. No intervention at the present time. Left foot wound has a wound VAC in place. Currently no plans for surgical debridement. Santyl is going to be placed and probably wound VAC removed. Discussed with patient Active Medications Acetaminophen (Acetaminophen Tab 325 Mg Tab) 650 mg PO Q6HR PRN PRN Reason: Mild Pain or Fever > 100.5 Last Admin: 04/25/24 15:42 Dose: 650 mg Albuterol Sulfate (Albuterol Hfa Inhaler) 2 puff INHALATION RT-Q6H PRN PRN Reason: Shortness Of Breath Alprazolam (Alprazolam 0.25 Mg Tab) 0.25 mg PO Q6HR PRN PRN Reason: Mild Anxiety Alprazolam (Alprazolam 0.5 Mg Tab) 0.5 mg PO Q6HR PRN PRN Reason: Moderate Anxiety Aspirin (Aspirin 81 Mg) 81 mg PO DAILY [facility] Last Admin: 04/26/24 04:13 Dose: Not Given Calcium Carbonate/Glycine (Calcium Carbonate 500 Mg Chewable) 1,000 mg PO Q4HR PRN PRN Reason: Dyspepsia Last Admin: 04/24/24 09:14 Dose: 1,000 mg Clopidogrel Bisulfate (Clopidogrel 75 Mg Tab) 75 mg PO DAILY [facility] Last Admin: 04/26/24 05:19 Dose: 75 mg Collagenase (Collagenase 250 Unit/Gm Ointment 30 Gm Tube) 1 applic TOPICAL DAILY [facility]; Protocol Famotidine (Famotidine 20 Mg Tab) 20 mg PO BID [facility] Last Admin: 04/26/24 04:19 Dose: 20 mg Gabapentin (Gabapentin 100 Mg Cap) 100 mg PO TID [facility] Last Admin: 04/26/24 10:23 Dose: Not Given Lisinopril/HCTZ (Lisinopril-Hctz 20-25 Mg 1 Each Tab) 1 each PO DAILY [facility] Last Admin: 04/26/24 05:20 Dose: 1 each Heparin Sodium (Porcine) (Heparin Sodium 1,000 Un/Ml (10ml Vl)) 0 unit IV PER PROTOCOL PRN; Protocol PRN Reason: Low PTT Hydromorphone HCl (Hydromorphone 0.5 Mg/0.5 Ml Syringe) 0.5 mg IVP Q3HR PRN PRN Reason: Moderate Pain (Scale 4 to 6) Last Admin: 04/24/24 21:18 Dose: 0.5 mg Hydromorphone HCl (Hydromorphone 1 Mg/Ml 1 Ml Syringe) 1 mg IVP Q3HR PRN PRN Reason: Severe Pain (Scale 7 to 10) Sodium Chloride (Saline 0.9%) 1,000 mls @ 75 mls/hr IV .[id number] [facility] Last Admin: 04/26/24 10:24 Dose: 75 mls/hr Ertapenem 1 gm/ Sodium (Chloride) 50 mls @ 100 mls/hr IVPB DAILY [facility]; Protocol Last Admin: 04/26/24 11:46 Dose: 100 mls/hr Heparin Sodium/Sodium Chloride (25,000 unit/ Sodium Chloride) 250 mls @ 10 mls/hr IV .Q24H [facility]; Protocol Heparin Sodium (Porcine) 10, (000 unit/ Sodium Chloride) 1,001 mls @ 999 mls/hr IRRIGATION ONCE PRN PRN Reason: INTRA-OP Stop: 04/27/24 23:00 Heparin Sodium (Porcine) 2,500 (unit/ Sodium Chloride) 250.5 mls @ 250 mls/hr IRRIGATION ONCE PRN PRN Reason: INTRA-OP Stop: 04/27/24 23:00 Insulin Aspart (Insulin Aspart (Novolog) 100 Unit/Ml Vial) 0 unit SQ ACHS [facility]; Protocol Last Admin: 04/26/24 12:20 Dose: 3 unit Insulin Detemir (Insulin Detemir (Levemir) 100 Unit/Ml Syr) 30 unit SQ HS [facility] Last Admin: 04/25/24 20:36 Dose: 30 unit Insulin Human Regular (Insulin Regular 100 Unit/Ml Vial (Iv)) 30 unit SQ BID [facility] Last Admin: 04/26/24 04:31 Dose: Not Given Lactulose (Lactulose 20 Gm/30 Ml Cup) 20 gm PO DAILY PRN PRN Reason: Constipation Lorazepam (Lorazepam 0.5 Mg Tab) 0.5 mg PO Q6HR PRN PRN Reason: Anxiety Last Admin: 04/25/24 03:31 Dose: 0.5 mg Melatonin (Melatonin 3 Mg Tablet) 3 mg PO HS PRN PRN Reason: Insomnia Metoprolol Tartrate (Metoprolol Tartrate 50 Mg Tab) 50 mg PO BID [facility] Last Admin: 04/26/24 04:20 Dose: 50 mg Miscellaneous Information (Rx Info: Iv Contrast Was Given 1 Each Misc) 1 each MISCELLANE DAILY PRN PRN Reason: Per Protocol Stop: 04/28/24 08:52 Naloxone HCl (Naloxone 0.4 Mg/Ml 1 Ml Vial) 0.2 mg IV Q2M PRN PRN Reason: Opioid Reversal Nitroglycerin (Nitroglycerin Sl Tabs 0.4 Mg Tab) 0.4 mg SUBLINGUAL Q5M PRN PRN Reason: Chest Pain Ondansetron HCl (Ondansetron 4 Mg/2 Ml Vial) 4 mg IVP Q8HR PRN PRN Reason: Nausea And Vomiting Last Admin: 04/24/24 13:59 Dose: 4 mg Social history: Lives alone. No alcohol. Patient smoked 1 pack a day from 1983 through 9897. On examination: VITAL SIGNS: 97.6, 81, 17, 149/76, 94% room air GENERAL APPEARANCE: Resting in bed, that HEENT: Normal external appearance of nose and ear. Oral cavity normal EYES: Pupils equal. Conjunctiva normal. NECK: JVD not raised. Mass not palpable. RESPIRATORY: Respiratory effort normal. Lungs clear to auscultation. CARDIOVASCULAR: First and second sounds normal. No edema. ABDOMEN: Soft. Liver and spleen not palpable. No tenderness. No mass palpable. PSYCHIATRY: Alert and oriented x3. Mood and affect normal. EXTREMITIES: Left foot in a dressing INVESTIGATIONS, reviewed in the clinical context: April 25: White count 12.8 hemoglobin 9.7 platelets 377 potassium 4.8 creatinine 0.81 Troponin I-3.2, 11.5 April 24: White count 10.8 hemoglobin 8.8 potassium 4.7 creatinine 0.9 April 23: White count 9.9 hemoglobin 9 potassium 4.5 creatinine 1.01 April 21: White count 10.2 hemoglobin 8.8 platelets 404 April 20: Sodium 132 potassium 5.3 BUN 26 creatinine 1.0 Previous testing Hemoglobin 8.[address]ogram: [February 2022] heavily calcified bilateral lower extremity arterial vasculature involving the superficial femoral arteries. Extending inferiorly. Extending into the femoral artery then is limited due to severe atherosclerotic plaque. Multiple areas of high-grade stenosis. Assessment and plan: -Acute left fifth toe dry gangrene and diabetic foot infection, secondary to diabetes and PAD, leading to left fifth toe amputation ray on March [address] Raymond whittington Return to see Dr. Ledesma in the office on April 08 with some drainage and being to have an order follow-up. Discharged on 10 days of Augmentin. Now presents with worsening local area with drainage and odor increased yesterday. On IV vancomycin. IV cefepime. P.o. Flagyl-followed by ID Being followed by Dr. Ledesma.-Debridement postponed for now. Wound VAC in place. Topical Santyl -Acute non-Q wave DC. Troponin peaked at 11.5 IV heparin. -Severe triple-vessel coronary artery disease per cardiac catheterization Seen by cardiothoracic team. -IV heparin monitoring Follow PTT -Severe peripheral arterial disease As per CT angiogram. Aspirin, Plavix held for now in case of surgical intervention Lipitor 40 mg nightly -Diabetes type 2 insulin-dependent uncontrolled A1c level 9.6 Levemir, Humulin R. Accu-Cheks with sliding scale insulin -Iron deficiency anemia -Coronary disease with history of stent placement Plavix-hold for now in case of surgical intervention. Aspirin-resumed. Lipitor added -Essential hypertension Lopressor 50 mg twice daily. 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 6 Weight loss measures -Anxiety -Full code Continue IV heparin. IV ertapenem. Past Medical History Past Medical History: Asthma, Blood Disorder, Coronary Artery Disease (CAD), Diabetes Mellitus, Eye Disorder, GERD/Reflux, Hyperlipidemia, Hypertension, Myocardial Infarction (DC), Pneumonia, Skin Disorder, Vascular Disorder Additional Past Medical History / Comment(s): Type II diabetic IDDM. retinitis pigmentosa (losing peripheral vision), Hx of cellulitis lt foot March 03, 2024. Circulation issues to lt leg-recent February 2024. IBD. Recent hospitalization @[facility] February-pt states she was anemic. States Hgb at discharge was 8.4. Pt states she had re-draw last week @[facility] out pt lab and it was Hgb was 9.6. She states she was put on Multivitamin. Last Myocardial Infarction Date:: 05/2015 History of Any Multi-Drug Resistant Organisms: None Reported Past Surgical History: Heart Catheterization, Heart Catheterization With Stent Additional Past Surgical History / Comment(s): boil under armpit (2000) Cardiac stent x3. Stent to lt leg March 07, 2024. Past Anesthesia/Blood Transfusion Reactions: No Reported Reaction Additional Past Anesthesia/Blood Transfusion Reaction / Comment(s): No hx of blood transfusion. Date of Last Stent Placement:: 05/30/2015 Past Psychological History: Anxiety Smoking Status: Former smoker Past Alcohol Use History: None Reported Past Drug Use History: None Reported
[2024-04-26 13:39] LABS: Prothrombin Time 11.2 sec (10.0-12.5)
--- NOTE | 2024-04-26 13:48 | P.PN ---
Subjective Progress Note Date: 04/26/24 Principal diagnosis: Cardiopulmonary arrest. Patient is a 58-year-old white female with past medical history significant for diabetes mellitus, peripheral arterial disease with previous ballooning and stent to the left leg, left fifth toe gangrene and previous amputation of this appendage. She also has a history of asthma, coronary artery disease with previous stents, hyperlipidemia, hypertension, among other things. Early Feb, 2024 patient initially noticed left fifth toe wound or blister. This did get worse and became infected. She has been treated for gangrene of the left fifth toe. She did undergo left fifth toe amputation on 03/28/2024. While outside of the hospital, she had increased drainage of this site. She also had some associated pain in this area. No significant fevers. She was treated with Augmentin 10 days. She was directed to our emergency department on 04/20/2024 by an after-hours urgent care clinic. On arrival and x-ray of the left foot dem onstrated air producing infection and osteomyelitis was difficult to exclude. She was scheduled for debridement yesterday, however, during induction of anesthesia she became hypoxic and pulseless. She had brief round of CPR and was intubated. Following this, ROSC was achieved quickly, and patient was subsequently extubated. She was then transferred to the intensive care unit. Patient is currently in room 254. She is awake and alert and no distress. She is on 2 L/min nasal cannula. SpO2 is 93%. Blood pressure is normotensive. Not currently requiring any vasopressors. Normal saline infusing at 75 mL/h. Heart rhythm is sinus tachycardia on bedside monitor. She denies any previous re actions to anesthesia. She does report some substernal chest pain, not particularly worse with inspiration or coughing. No shortness of breath. Most recent CBC: WBC count 10.8, hemoglobin 8.8, hematocrit 29.7, platelets 334. Most recent BMP unremarkable. Procalcitonin level 0.07. Wound positive for E. coli and anaerobic organisms. Preliminary blood cultures are still not growing any organisms. She is maintained on a combination of ertapenem and vancomycin as directed by infectious disease specialist. She still needs surgical debridement. Progress note dated April 26, 2024. This is a 58-year-old female who was seen in room 362. The patient was going for a debridement of her left foot area, having had a previous left small toe amputation. Patient developed a cardiopulmonary arrest. She was resuscitated, and extubated finally, in the recovery area. She came to the ICU for a brief period of time. Currently, she seems to be resting comfortably. She is on room air. She is not receiving any any IV fluids. The patient has a wound VAC, in the area of the previous amputation. Current labs include a PT of 11.2, INR of 1, PTT of 23. Cultures of the left toe area, including anaerobic gram-negative bacilli, and E. coli. The patient is currently on ertapenem. Objective - Vital Signs Vital signs: Vital Signs Temp 97.6 F 04/26/24 10:07 Pulse 81 04/26/24 11:39 Resp 17 04/26/24 11:39 BP 149/76 04/26/24 11:39 Pulse Ox 94 L 04/26/24 11:39 FiO2 Intake & Output 04/25/24 04/26/24 04/26/24 18:59 06:59 18:59 Intake Total 645 50 Output Total 3000 Balance 645 -2950 Weight 90.3 kg 87.5 kg Intake: IV 75 50 Sodium Chloride 0.9% 1, 75 000 ml @ 75 mls/hr IV . [id number] [facility] Rx#:[id number] Oral 570 Output: Urine 3000 Other: Voiding Method Bedside Commode Indwelling Catheter # Voids 1 - Exam No acute distress, oriented 3. Room air saturation 94%. HEENT examination is grossly unremarkable. Mucous membranes are moist. No oral lesions. Neck supple. Full range of motion. No adenopathy thyromegaly or neck vein distention. Cardiovascular examination reveals regular rhythm rate. S1-S2 normal. No S3 or S4. No discernible murmur noted. Heart rate 81 bpm. Lungs reveal clear breath sounds. Breath sounds are equal bilaterally. No adventitious lung sounds including wheezes rhonchi or crackles. Abdomen soft bowel sounds are heard. No masses or tenderness. Extremities are intact. No cyanosis clubbing or edema. Previous left small toe amputation. Skin is without rash or lesion. Neurologic examination is brief but nonfocal. - Labs CBC & Chem 7: 04/25/24 03:38 04/25/24 03:38 Labs: Abnormal Lab Results - Last 24 Hours (Table) 04/25/24 04/26/24 04/26/24 Range/Units 19:57 06:03 11:25 POC Glucose (mg/dL) 173 H 185 H 164 H (70-110) mg/dL Microbiology - Last 24 Hours (Table) 04/20/24 19:03 Blood Culture - Final Blood 04/20/24 19:18 Blood Culture - Final Blood 04/20/24 16:55 Anaerobic Culture - Final Toe - Left Fifth Anaerobic Gm Negative Bacilli Anaerobic Gm Negative Bacilli#2 Assessment and Plan Assessment: Left foot gangrene, left foot x-ray on arrival to the emergency department demonstrated air producing infection and osteomyelitis was difficult to exclude. Patient was scheduled for OR debridement yesterday 04/24/2024, during induction of anesthesia, patient became hypoxic and pulseless. Patient had a brief round of CPR and was intubated, following this ROSC was achieved quickly. Patient was subsequently extubated and transferred to the intensive care unit. Brief PEA cardiac arrest, likely secondary to anesthesia induction. Substernal chest pain, likely related to CPR. History of left fifth toe gangrene status post amputation on 03/28/2024. History of severe peripheral arterial disease with previous balloon angioplasty and stent to the left lower extremity on 03/07/2024. History of coronary artery disease and previous MS, with multiple previous PCI/stents. Diabetes mellitus type 2, insulin-dependent. Normocytic normochromic anemia, no overt signs of blood loss. History of hyperlipidemia. History of hypertension. History of asthma, stable. Plan: Plan dated April 26, 2024. The patient was seen today in room 362. Clinically, she appears stable. She is on room air. She is not receiving any IV fluids. Labs, x-rays, and medications are reviewed. Wound cultures of the left toe and left foot area, show Escherichia coli, and anaerobic gram-negative bacilli. The patient is currently on ertapenem, and was on vancomycin, but that was discontinued. We will continue to follow make recommendations along the way. Prognosis is guarded. Time with Patient: Less than 30
[2024-04-26 13:49] LABS: Basophils % (A) 0 %; Eosinophils % (A) 0 %; HCT 30.1 % (34.0-46.0); HGB 9.1 gm/dL (11.4-16.0); Hypochromasia Marked; Lymphocytes # (A) 1.5 k/uL (1.0-4.8); Lymphocytes % (A) 13 %; MCH 25.7 pg (25.0-35.0); MCHC 30.4 g/dL (31.0-37.0); MCV 84.5 fL (80.0-100.0); Mean Platelet Volume 8.1; Monocytes # (A) 0.7 k/uL (0-1.0); Monocytes % (A) 6 %; Neutrophils # (A) 9.2 k/uL (1.3-7.7); Neutrophils % (A) 80 %; Platelet Count 386 k/uL (150-450); RBC 3.56 m/uL (3.80-5.40); WBC 11.5 k/uL (3.8-10.6)
[2024-04-26] MEDS: HEPARIN SOD,PORK IN 0.45% NACL 25,000 UNIT in 0.45% NACL 1 250ML.BAG IV SCH (14:02)
[2024-04-26] MEDS: COLLAGENASE 250 UNIT/GM OINTMENT 30 GM TUBE TOPICAL SCH (14:02)
--- NOTE | 2024-04-26 16:01 | P.PN ---
Subjective Progress Note Date: 04/26/24 Principal diagnosis: Left diabetic foot ulcer/for surgical infection Patient is a 58-year-old female with a past medical history significant for diabetes mellitus hypertension hyperlipidemia [place] recently admitted to hospital with back left fifth toe gangrene diabetic foot infection in this patient who is status post left fifth toe amputation on 03/29/2024, presenting back to the hospital worsening wound to the left fifth toe amputation site with some discoloration. On today's evaluation that is 04/26/2024,the patient remains to be afebrile, patient is on room air not requiring supplemental oxygen and denies any shortness of breath no chest pain or cough.Patient denies having any nausea or vomiting, no abdominal pain and no diarrhea has been reported, denies any worsening pain to the left foot. Patient white count is down to 11.5 Objective - Vital Signs Vital signs: Vital Signs Temp 97.6 F 04/26/24 10:07 Pulse 81 04/26/24 11:39 Resp 17 04/26/24 11:39 BP 149/76 04/26/24 11:39 Pulse Ox 94 L 04/26/24 11:39 FiO2 Intake & Output 04/25/24 04/26/24 04/26/24 18:59 06:59 18:59 Intake Total 645 50 Output Total 3000 Balance 645 -2950 Weight 90.3 kg 87.5 kg Intake: IV 75 50 Sodium Chloride 0.9% 1, 75 000 ml @ 75 mls/hr IV . [id number] [facility] Rx#:[id number] Oral 570 Output: Urine 3000 Other: Voiding Method Bedside Commode Indwelling Catheter # Voids 1 - Exam GENERAL DESCRIPTION: Middle-aged female lying in bed in no distress RESPIRATORY SYSTEM: Unlabored breathing , decreased breath sounds at bases HEART: S1 S2 regular rate and rhythm , ABDOMEN: Soft , no tenderness EXTREMITIES: Left foot is currently dressed no drainage on the dressing - Labs CBC & Chem 7: 04/26/24 13:14 04/25/24 03:38 Labs: Abnormal Lab Results - Last 24 Hours (Table) 04/25/24 04/26/24 04/26/24 Range/Units 19:57 06:03 11:25 POC Glucose (mg/dL) 173 H 185 H 164 H (70-110) mg/dL Microbiology - Last 24 Hours (Table) 04/20/24 19:03 Blood Culture - Final Blood 04/20/24 19:18 Blood Culture - Final Blood 04/20/24 16:55 Anaerobic Culture - Final Toe - Left Fifth Anaerobic Gm Negative Bacilli Anaerobic Gm Negative Bacilli#2 Assessment and Plan (1) Left foot infection Current Visit: Yes Status: Acute Code(s): L08.9 - LOCAL INFECTION OF THE SKIN AND SUBCUTANEOUS TISSUE, UNSP SNOMED Code(s): 104825142 (2) Allergy to multiple antibiotics Current Visit: No Status: Acute Code(s): Z88.1 - ALLERGY STATUS TO OTHER ANTIBIOTIC AGENTS SNOMED Code(s): 655323486 (3) Cellulitis of left foot Current Visit: No Status: Acute Code(s): L03.116 - CELLULITIS OF LEFT LOWER LIMB SNOMED Code(s): 24710793532795675 Plan: 1patient with a left fifth toe diabetic foot wound and this patient was status post amputation of the left fifth toe now with evidence of nonhealing wound to the left fifth amputation site and some gangrene failing outpatient oral Augmentin therapy we will need to cover for resistant gram-positive as well as gram-negative pathogen. 2patient has been evaluated by vascular surgery and planning for debridement of the wound, surgery has been postponed patient did have a cardiac cath CT surgery has been consulted 3patient initial culture currently growing ESBL E. coli as well as anaerobes 4- patient to continue with Invanz and monitor clinical course closely Dictation was produced using [employer] dictation software. please excuse any grammatical, word or spelling errors. Time with Patient: Less than 30
[2024-04-26 16:37] LABS: Glucose,Whole Blood 287 mg/dL (70-110)
[2024-04-26 20:07] LABS: Glucose,Whole Blood 287 mg/dL (70-110)
[2024-04-26] MEDS: HEPARIN SODIUM 1,000 UN/ML (10ML VL) IV PRN (20:32)
[2024-04-27 05:07] LABS: INR 1.1 (<1.2); Prothrombin Time 12.2 sec (10.0-12.5)
[2024-04-27 05:08] LABS: African American GFR (CKD) 54 (>60 ml/min/1.73 sqM); Anion Gap 8 mmol/L; Blood Urea Nitrogen 44 mg/dL (7-17); Calcium 8.2 mg/dL (8.4-10.2); Carbon Dioxide 22 mmol/L (22-30); Chloride 104 mmol/L (98-107); Glucose 100 mg/dL (74-99); Non-African American GFR(CKD) 47 (>60 ml/min/1.73 sqM); Potassium 3.9 mmol/L (3.5-5.1); Sodium 134 mmol/L (137-145)
[2024-04-27 05:14] LABS: HCT 25.2 % (34.0-46.0); Hypochromasia Moderate; MCH 25.5 pg (25.0-35.0); MCHC 30.3 g/dL (31.0-37.0); MCV 84.2 fL (80.0-100.0); Mean Platelet Volume 8.7; Platelet Count 317 k/uL (150-450); RBC 2.99 m/uL (3.80-5.40); WBC 10.2 k/uL (3.8-10.6)
[2024-04-27 05:55] LABS: Band Neutrophils % 1 %; Eosinophils # (M) 0.31 k/uL (0-0.7); Lymphocytes # (M) 2.45 k/uL (1.0-4.8); Neutrophils % (M) 71 %; Nucleated Red Blood Cells 0 /100 WBC (0-0); Total Cells Counted 100
[2024-04-27 06:17] LABS: Glucose,Whole Blood 95 mg/dL (70-110)
[2024-04-27] MEDS ORDERED: HEPARIN SODIUM,PORCINE 10,000 UNIT in SODIUM CHLORIDE 0.9% 1,000 ML IRRIGATION PRN (07:00)
[2024-04-27] MEDS ORDERED: HEPARIN SODIUM,PORCINE (1 ML) 2,500 UNIT in SODIUM CHLORIDE 0.9% 250 ML IRRIGATION PRN (07:00)
[2024-04-27 07:45] LABS: HGB 7.6 gm/dL (11.4-16.0)
[2024-04-27] MEDS: FAMOTIDINE 20 MG TAB PO SCH (09:53)
[2024-04-27 11:31] LABS: Glucose,Whole Blood 139 mg/dL (70-110)
--- NOTE | 2024-04-27 12:56 | P.PN ---
Progress Note - Text Progress Note Date: 04/27/24 Chief Complaint: Left foot infection Patient is a 58-year-old female with known history of coronary disease status post stent placement, diabetes type 2 insulin-dependent, hypertension, asthma and history of retinitis pigmentosa, anxiety 03/05/2024: CT angiogram of the abdomen aorta with runoff showed heavily calcified bilateral lower extremity arterial vasculature involving the superficial femoral arteries and extending inferiorly to the popliteal artery to the feet is limited due to severe atherosclerotic plaque. Patient was discharged from the hospital on March [address] Ledesma. Left toe was felt will probably demarcate. With gangrene. March 28: Left fifth toe ray amputation carried out by Dr. Ledesma. Patient did not return to the office outpatient to see Dr. Ledesma on April 08. There was some odor from the amputation site. Was given 10-day course of Augmentin. Patient now presents with increasing drainage and highly sensitive area of the left foot. No fever no chills. Appetite not too good. Has been using a walker April 22: Sitting at the edge of bed. Seen earlier by Dr. Haines from vascular. Plan for local debridement and deep tissue culture on April 24. Also seen by ID. Patient IV cefepime and vancomycin. And Flagyl. Eating 100% April 23: Resting in bed. Pending debridement of wound tomorrow. Getting IV cefepime IV vancomycin. Wound culture growing E. coli. April 24: Saw the patient this morning. Resting bed. Pending debridement. On antibiotics. NPO. IV this afternoon I got a call from Dr. Ledesma vascular surgery. Patient had respiratory compromise had to be intubated. Moved to the ICU. April 25: Patient in the ICU. Yesterday when patient is given anesthesia patient had a cardiac arrest. Had to be intubated. Was shortly extubated t after. Debridement was postponed. Patient's troponin became positive. Peaked at 11.5. He is planning for a cardiac catheterization. Patient initially refused antibiotics feeling is causing her bloating. I did explain to the patient that several of the reasons for the same. Has agreed to take antibiotics. On IV heparin EKG showed ST depression and some T wave changes April 26: Underwent cardiac catheterization by Dr. Andrea Donahue this morning. It showed: Long segment of severe stenosis 80 to 90% RCA. Circumflex 30%. LAD is diffusely diseased subtotally occluded in its midportion. Severe stenosis within the stent. Cardiology decided to do a stent to be done on Monday. Also seen by the cardiothoracic team. No intervention at the present time. Left foot wound has a wound VAC in place. Currently no plans for surgical debridement. Santyl is going to be placed and probably wound VAC removed. Discussed with patient April 27: Patient due for catheterization with stent on Monday. Getting IV heparin. Some throat discomfort from intubation. Oral intake fair. IV antibiotics Active Medications Acetaminophen (Acetaminophen Tab 325 Mg Tab) 650 mg PO Q6HR PRN PRN Reason: Mild Pain or Fever > 100.5 Last Admin: 04/27/24 06:52 Dose: 650 mg Albuterol Sulfate (Albuterol Hfa Inhaler) 2 puff INHALATION RT-Q6H PRN PRN Reason: Shortness Of Breath Alprazolam (Alprazolam 0.25 Mg Tab) 0.25 mg PO Q6HR PRN PRN Reason: Mild Anxiety Alprazolam (Alprazolam 0.5 Mg Tab) 0.5 mg PO Q6HR PRN PRN Reason: Moderate Anxiety Aspirin (Aspirin 81 Mg) 81 mg PO DAILY [facility] Last Admin: 04/27/24 09:54 Dose: 81 mg Calcium Carbonate/Glycine (Calcium Carbonate 500 Mg Chewable) 1,000 mg PO Q4HR PRN PRN Reason: Dyspepsia Last Admin: 04/24/24 09:14 Dose: 1,000 mg Clopidogrel Bisulfate (Clopidogrel 75 Mg Tab) 75 mg PO DAILY [facility] Last Admin: 04/27/24 09:53 Dose: 75 mg Collagenase (Collagenase 250 Unit/Gm Ointment 30 Gm Tube) 1 applic TOPICAL DAILY [facility]; Protocol Last Admin: 04/27/24 09:54 Dose: 1 applic Famotidine (Famotidine 20 Mg Tab) 20 mg PO DAILY [facility] Last Admin: 04/27/24 09:53 Dose: 20 mg Gabapentin (Gabapentin 100 Mg Cap) 100 mg PO TID [facility] Last Admin: 04/27/24 09:54 Dose: 100 mg Lisinopril/HCTZ (Lisinopril-Hctz 20-25 Mg 1 Each Tab) 1 each PO DAILY [facility] Last Admin: 04/27/24 09:54 Dose: 1 each Heparin Sodium (Porcine) (Heparin Sodium 1,000 Un/Ml (10ml Vl)) 0 unit IV PER PROTOCOL PRN; Protocol PRN Reason: Low PTT Last Admin: 04/26/24 20:32 Dose: 4,000 unit Hydromorphone HCl (Hydromorphone 0.5 Mg/0.5 Ml Syringe) 0.5 mg IVP Q3HR PRN PRN Reason: Moderate Pain (Scale 4 to 6) Last Admin: 04/24/24 21:18 Dose: 0.5 mg Hydromorphone HCl (Hydromorphone 1 Mg/Ml 1 Ml Syringe) 1 mg IVP Q3HR PRN PRN Reason: Severe Pain (Scale 7 to 10) Sodium Chloride (Saline 0.9%) 1,000 mls @ 75 mls/hr IV .[id number] [facility] Last Admin: 04/27/24 11:48 Dose: Not Given Ertapenem 1 gm/ Sodium (Chloride) 50 mls @ 100 mls/hr IVPB DAILY [facility]; Protocol Last Admin: 04/27/24 09:54 Dose: 100 mls/hr Heparin Sodium/Sodium Chloride (25,000 unit/ Sodium Chloride) 250 mls @ 10 mls/hr IV .Q24H [facility]; Protocol Last Admin: 04/27/24 09:55 Dose: 14.428 units/kg/hr, 12.625 mls/hr Heparin Sodium (Porcine) 10, (000 unit/ Sodium Chloride) 1,001 mls @ 999 mls/hr IRRIGATION ONCE PRN PRN Reason: INTRA-OP Stop: 04/27/24 23:00 Heparin Sodium (Porcine) 2,500 (unit/ Sodium Chloride) 250.5 mls @ 250 mls/hr IRRIGATION ONCE PRN PRN Reason: INTRA-OP Stop: 04/27/24 23:00 Insulin Aspart (Insulin Aspart (Novolog) 100 Unit/Ml Vial) 0 unit SQ ACHS [facility]; Protocol Last Admin: 04/27/24 11:48 Dose: Not Given Insulin Detemir (Insulin Detemir (Levemir) 100 Unit/Ml Syr) 30 unit SQ HS [facility] Last Admin: 04/26/24 20:31 Dose: 30 unit Insulin Human Regular (Insulin Regular 100 Unit/Ml Vial (Iv)) 30 unit SQ BID [facility] Last Admin: 04/27/24 09:54 Dose: 30 unit Lactulose (Lactulose 20 Gm/30 Ml Cup) 20 gm PO DAILY PRN PRN Reason: Constipation Lorazepam (Lorazepam 0.5 Mg Tab) 0.5 mg PO Q6HR PRN PRN Reason: Anxiety Last Admin: 04/25/24 03:31 Dose: 0.5 mg Melatonin (Melatonin 3 Mg Tablet) 3 mg PO HS PRN PRN Reason: Insomnia Metoprolol Tartrate (Metoprolol Tartrate 50 Mg Tab) 50 mg PO BID [facility] Last Admin: 04/27/24 09:54 Dose: 50 mg Miscellaneous Information (Rx Info: Iv Contrast Was Given 1 Each Misc) 1 each MISCELLANE DAILY PRN PRN Reason: Per Protocol Stop: 04/28/24 08:52 Naloxone HCl (Naloxone 0.4 Mg/Ml 1 Ml Vial) 0.2 mg IV Q2M PRN PRN Reason: Opioid Reversal Nitroglycerin (Nitroglycerin Sl Tabs 0.4 Mg Tab) 0.4 mg SUBLINGUAL Q5M PRN PRN Reason: Chest Pain Ondansetron HCl (Ondansetron 4 Mg/2 Ml Vial) 4 mg IVP Q8HR PRN PRN Reason: Nausea And Vomiting Last Admin: 04/24/24 13:59 Dose: 4 mg Social history: Lives alone. No alcohol. Patient smoked 1 pack a day from 1983. On examination: VITAL SIGNS: 98, 86, 16, 147/76, 92% room air GENERAL APPEARANCE: Resting in bed, HEENT: Normal external appearance of nose and ear. Oral cavity normal EYES: Pupils equal. Conjunctiva normal. NECK: JVD not raised. Mass not palpable. RESPIRATORY: Respiratory effort normal. Lungs clear to auscultation. CARDIOVASCULAR: First and second sounds normal. No edema. ABDOMEN: Soft. Liver and spleen not palpable. No tenderness. No mass palpable. PSYCHIATRY: Alert and oriented x3. Mood and affect normal. EXTREMITIES: Left foot in a dressing INVESTIGATIONS, reviewed in the clinical context: April 27: White count 10.2 hemoglobin 7.6 potassium 3.9 BUN 44 creatinine 1.25 April 25: White count 12.8 hemoglobin 9.7 platelets 377 potassium 4.8 creatinine 0.81 Troponin I-3.2, 11.5 April 24: White count 10.8 hemoglobin 8.8 potassium 4.7 creatinine 0.9 April 23: White count 9.9 hemoglobin 9 potassium 4.5 creatinine 1.01 April 21: White count 10.2 hemoglobin 8.8 platelets 404 April 20: Sodium 132 potassium 5.3 BUN 26 creatinine 1.0 Previous testing Hemoglobin 8.[address]ogram: [February 2022] heavily calcified bilateral lower extremity arterial vasculature involving the superficial femoral arteries. Extending inferiorly. Extending into the femoral artery then is limited due to severe atherosclerotic plaque. Multiple areas of high-grade stenosis. Assessment and plan: -Acute left fifth toe dry gangrene and diabetic foot infection, secondary to diabetes and PAD, leading to left fifth toe amputation ray on March [address] Ledesma Return to see Dr. Ledesma in the office on April 08 with some drainage and being to have an order follow-up. Discharged on 10 days of Augmentin. Now presents with worsening local area with drainage and odor increased yesterday. On IV vancomycin. IV cefepime. P.o. Flagyl-followed by ID Being followed by Dr. Ledesma.-Debridement postponed for now. Wound VAC in place. Topical Santyl -Acute non-Q wave CO. Troponin peaked at 11.5 IV heparin. -Severe triple-vessel coronary artery disease per cardiac catheterization Seen by cardiothoracic team.-Currently not for any intervention Patient to go back to [facility] on Monday for stenting -IV heparin monitoring Follow PTT -Severe peripheral arterial disease As per CT angiogram. Aspirin, Plavix held for now in case of surgical intervention Lipitor 40 mg nightly -Diabetes type 2 insulin-dependent uncontrolled A1c level 9.6 Levemir, Humulin R. Accu-Cheks with sliding scale insulin -Iron deficiency anemia -Coronary disease with history of stent placement Plavix-hold for now in case of surgical intervention. Aspirin-. Lipitor -Essential hypertension Lopressor 50 mg twice daily. 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 6 Weight loss measures -Anxiety -Full code Discussed. Continue current treatment plan. Past Medical History Past Medical History: Asthma, Blood Disorder, Coronary Artery Disease (CAD), Diabetes Mellitus, Eye Disorder, GERD/Reflux, Hyperlipidemia, Hypertension, Myocardial Infarction ([place]), Pneumonia, Skin Disorder, Vascular Disorder Additional Past Medical History / Comment(s): Type II diabetic IDDM. retinitis pigmentosa (losing peripheral vision), Hx of cellulitis lt foot March 03, 2024. Circulation issues to lt leg-recent February 2024. IBD. Recent hospitalization @[facility] February-pt states she was anemic. States Hgb at discharge was 8.4. Pt states she had re-draw last week @[facility] out pt lab and it was Hgb was 9.6. She states she was put on Multivitamin. Last Myocardial Infarction Date:: 05/2015 History of Any Multi-Drug Resistant Organisms: None Reported Past Surgical History: Heart Catheterization, Heart Catheterization With Stent Additional Past Surgical History / Comment(s): boil under armpit (2000) Cardiac stent x3. Stent to lt leg March 07, 2024. Past Anesthesia/Blood Transfusion Reactions: No Reported Reaction Additional Past Anesthesia/Blood Transfusion Reaction / Comment(s): No hx of blood transfusion. Date of Last Stent Placement:: 05/30/2015 Past Psychological History: Anxiety Smoking Status: Former smoker Past Alcohol Use History: None Reported Past Drug Use History: None Reported
--- NOTE | 2024-04-27 15:37 | P.PN ---
Subjective Progress Note Date: 04/27/24 Principal diagnosis: Left diabetic foot ulcer/for surgical infection Patient is a 58-year-old female with a past medical history significant for diabetes mellitus hypertension hyperlipidemia [place] recently admitted to hospital with back left fifth toe gangrene diabetic foot infection in this patient who is status post left fifth toe amputation on 03/29/2024, presenting back to the hospital worsening wound to the left fifth toe amputation site with some discoloration. On today's evaluation that is 04/27/2024, the patient continues to be afebrile, the patient is on room air and breathing comfortably, the Pt denies having any chest pain or cough, the patient denies having any abdominal pain no vomiting or any diarrhea and denies any worsening pain to the left foot. Patient white count is 10.2, creatinine 1.25 Objective - Vital Signs Vital signs: Vital Signs Temp 98.0 F 04/27/24 09:41 Pulse 79 04/27/24 12:20 Resp 18 04/27/24 12:20 BP 144/91 04/27/24 12:20 Pulse Ox 94 L 04/27/24 12:20 FiO2 Intake & Output 04/26/24 04/27/24 04/27/24 18:59 06:59 18:59 Intake Total 160 75 168.965 Output Total 3500 400 Balance -3340 -325 168.965 Intake: IV 50 10 Invasive Line 2 10 Intake, IV Titration 65 168.965 Amount Heparin Sod,Pork in 0.45% 65 168.965 NaCl 25,000 unit In 0.45 % NaCl 1 250ml.bag @ 11. 428 UNITS/KG/HR 10 mls/hr IV .Q24H [facility] Rx#: [id number] Oral 110 Output: Urine 3500 400 Other: Voiding Method Indwelling Catheter Toilet Toilet # Voids 1 - Exam GENERAL DESCRIPTION: Middle-aged female lying in bed in no distress RESPIRATORY SYSTEM: Unlabored breathing , decreased breath sounds at bases HEART: S1 S2 regular rate and rhythm , ABDOMEN: Soft , no tenderness EXTREMITIES: Left foot is currently dressed no drainage on the dressing - Labs CBC & Chem 7: 04/27/24 03:33 04/27/24 03:33 Labs: Abnormal Lab Results - Last 24 Hours (Table) 04/26/24 04/26/24 04/26/24 Range/Units 16:36 19:57 20:05 RBC (3.80-5.40) m/uL Hgb (11.4-16.0) gm/dL Hct (34.0-46.0) % MCHC (31.0-37.0) g/dL APTT 30.6 H (22.0-30.0) sec Sodium (137-145) mmol/L BUN (7-17) mg/dL Creatinine (0.52-1.04) mg/dL Glucose (74-99) mg/dL POC Glucose (mg/dL) 287 H 287 H (70-110) mg/dL Calcium (8.4-10.2) mg/dL 04/27/24 04/27/24 04/27/24 Range/Units 03:33 03:33 03:33 RBC 2.99 L (3.80-5.40) m/uL Hgb 7.6 L D (11.4-16.0) gm/dL Hct 25.2 L (34.0-46.0) % MCHC 30.3 L (31.0-37.0) g/dL APTT 63.8 H (22.0-30.0) sec Sodium 134 L (137-145) mmol/L BUN 44 H (7-17) mg/dL Creatinine 1.25 H (0.52-1.04) mg/dL Glucose 100 H (74-99) mg/dL POC Glucose (mg/dL) (70-110) mg/dL Calcium 8.2 L (8.4-10.2) mg/dL 04/27/24 Range/Units 11:29 RBC (3.80-5.40) m/uL Hgb (11.4-16.0) gm/dL Hct (34.0-46.0) % MCHC (31.0-37.0) g/dL APTT (22.0-30.0) sec Sodium (137-145) mmol/L BUN (7-17) mg/dL Creatinine (0.52-1.04) mg/dL Glucose (74-99) mg/dL POC Glucose (mg/dL) 139 H (70-110) mg/dL Calcium (8.4-10.2) mg/dL Assessment and Plan (1) Left foot infection Current Visit: Yes Status: Acute Code(s): L08.9 - LOCAL INFECTION OF THE SKIN AND SUBCUTANEOUS TISSUE, UNSP SNOMED Code(s): 413913195 (2) Allergy to multiple antibiotics Current Visit: No Status: Acute Code(s): Z88.1 - ALLERGY STATUS TO OTHER ANTIBIOTIC AGENTS SNOMED Code(s): 375085098 (3) Cellulitis of left foot Current Visit: No Status: Acute Code(s): L03.116 - CELLULITIS OF LEFT LOWER LIMB SNOMED Code(s): 38767350669102209 Plan: 1patient with a left fifth toe diabetic foot wound and this patient was status post amputation of the left fifth toe now with evidence of nonhealing wound to the left fifth amputation site and some gangrene failing outpatient oral Augmentin therapy we will need to cover for resistant gram-positive as well as gram-negative pathogen. 2patient has been evaluated by vascular surgery and planning for debridement of the wound, surgery has been postponed patient did have a cardiac cath CT surgery has been consulted 3patient initial culture currently growing ESBL E. coli as well as anaerobes 4- patient is afebrile white count normalized, to continue with Invanz and monitor clinical course closely Dictation was produced using [employer] dictation software. please excuse any grammatical, word or spelling errors. Time with Patient: Less than 30
--- NOTE | 2024-04-27 15:51 | P.PN ---
Subjective Progress Note Date: 04/27/24 HISTORY OF PRESENTING ILLNESS This is a pleasant 58-year-old with past medical history significant for hype rtension, hyperlipidemia, CAD with prior PCI of the RCA and circumflex, diabetes mellitus type 2 and PAD and nonhealing ulcer. She follows in the office with Dr Donahue. She does have PAD and had recent lower extremity stenting in the setting of nonhealing ulcer. She presented 04/20 secondary to increased left foot pain and infection with possible osteomyelitis. She was scheduled for debridement however upon induction of anesthesia patient had hypoxic episode and asystole requiring CPR. This was felt related to bronchospasm and during the time of intubation per anesthesia. She had return of spontaneous circulation and has been off of any vasopressors. She was extubated and surgery was not performed. Currently she denies any chest pain other than where her chest compressions were performed. Troponins elevated 3.2, 11.5. EKG showing normal sinus rhythm, poor R-wave progression, diffuse mild ST depressions in the lateral leads. She has had prior stress test from 2020 with abnormal anterior ischemia and plan was to repeat stress testing at some point in cardiology office. 04/27 She underwent left heart catheterization 04/26/2024 which revealed triple-vessel CAD with severe stenosis of the RCA and LAD. She was referred for evaluation by CV surgery and deemed to be at higher risk due to foot infection. Hemoglobin 7.6, creatinine 1.25, potassium 3.9. She denies any chest pain or pressure. Shortness of breath is stable. PHYSICAL EXAMINATION Vital signs reviewed. CONSTITUTIONAL: No apparent distress. HEENT: Head is normocephalic. Pupils are equal, round. Sclerae anicteric. Mucous membranes of the mouth are moist. No JVD. No carotid bruit. CHEST EXAMINATION: Lungs are clear to auscultation. No chest wall tenderness is noted on palpation or with deep breathing. HEART EXAMINATION: Regular rate and rhythm. S1, S2 heard. No murmurs, gallops or rub. ABDOMEN: Soft, nontender. EXTREMITIES: no lower extremity edema and no calf tenderness. +LLE nonhealing ulcer. Right groin site soft with no hematoma or oozing. Dressing is clean dry and intact. NEUROLOGIC EXAMINATION: Patient is awake, alert and oriented x3. ASSESSMENT Cardiac arrest, possible hypoxic related however significant non-STEMI with concern of cardiac etiology Non-STEMI, concern of type I etiology Left foot gangrene Atypical chest pain related to CPR PAD with prior left lower extremity intervention CAD with prior history of PCI of circumflex and RCA Diabetes mellitus type 2 Anemia Hypertension Hyperlipidemia History of asthma PLAN Triple-vessel CAD with severe stenosis of RCA and LAD on left heart catheterization. She was seen by CV surgery and high risk for CABG. Plan for intervention with PCI on Monday. Continue aspirin and heparin drip. Check CBC in a.m. We will follow. Patient seen and examined in rounds with Dr. Chaparro, plan of care agreed upon. Objective - Vital Signs Vital signs: Vital Signs Temp 98.0 F 04/27/24 09:41 Pulse 79 04/27/24 12:20 Resp 18 04/27/24 12:20 BP 144/91 04/27/24 12:20 Pulse Ox 94 L 04/27/24 12:20 FiO2 Intake & Output 04/26/24 04/27/24 04/27/24 18:59 06:59 18:59 Intake Total 160 75 168.965 Output Total 3500 400 Balance -3340 -325 168.965 Intake: IV 50 10 Invasive Line 2 10 Intake, IV Titration 65 168.965 Amount Heparin Sod,Pork in 0.45% 65 168.965 NaCl 25,000 unit In 0.45 % NaCl 1 250ml.bag @ 11. 428 UNITS/KG/HR 10 mls/hr IV .Q24H [facility] Rx#: [id number] Oral 110 Output: Urine 3500 400 Other: Voiding Method Indwelling Catheter Toilet Toilet # Voids 1 - Labs CBC & Chem 7: 04/27/24 03:33 04/27/24 03:33 Labs: Abnormal Lab Results - Last 24 Hours (Table) 04/26/24 04/26/24 04/26/24 Range/Units 13:14 16:36 19:57 WBC 11.5 H (3.8-10.6) k/uL RBC 3.56 L (3.80-5.40) m/uL Hgb 9.1 L (11.4-16.0) gm/dL Hct 30.1 L (34.0-46.0) % MCHC 30.4 L (31.0-37.0) g/dL Neutrophils # 9.2 H (1.3-7.7) k/uL APTT 30.6 H (22.0-30.0) sec Sodium (137-145) mmol/L BUN (7-17) mg/dL Creatinine (0.52-1.04) mg/dL Glucose (74-99) mg/dL POC Glucose (mg/dL) 287 H (70-110) mg/dL Calcium (8.4-10.2) mg/dL 04/26/24 04/27/24 04/27/24 Range/Units 20:05 03:33 03:33 WBC (3.8-10.6) k/uL RBC 2.99 L (3.80-5.40) m/uL Hgb 7.6 L D (11.4-16.0) gm/dL Hct 25.2 L (34.0-46.0) % MCHC 30.3 L (31.0-37.0) g/dL Neutrophils # (1.3-7.7) k/uL APTT (22.0-30.0) sec Sodium 134 L (137-145) mmol/L BUN 44 H (7-17) mg/dL Creatinine 1.25 H (0.52-1.04) mg/dL Glucose 100 H (74-99) mg/dL POC Glucose (mg/dL) 287 H (70-110) mg/dL Calcium 8.2 L (8.4-10.2) mg/dL 04/27/24 04/27/24 Range/Units 03:33 11:29 WBC (3.8-10.6) k/uL RBC (3.80-5.40) m/uL Hgb (11.4-16.0) gm/dL Hct (34.0-46.0) % MCHC (31.0-37.0) g/dL Neutrophils # (1.3-7.7) k/uL APTT 63.8 H (22.0-30.0) sec Sodium (137-145) mmol/L BUN (7-17) mg/dL Creatinine (0.52-1.04) mg/dL Glucose (74-99) mg/dL POC Glucose (mg/dL) 139 H (70-110) mg/dL Calcium (8.4-10.2) mg/dL
[2024-04-27 16:34] LABS: Glucose,Whole Blood 78 mg/dL (70-110)
[2024-04-27 20:19] LABS: Glucose,Whole Blood 120 mg/dL (70-110)
[2024-04-27] MEDS: ATORVASTATIN 80 MG TAB PO SCH (20:23)
[2024-04-28 06:12] LABS: Glucose,Whole Blood 116 mg/dL (70-110)
[2024-04-28 08:08] LABS: Basophils # (A) 0.1 k/uL (0-0.2); Basophils % (A) 1 %; Eosinophils # (A) 0.3 k/uL (0-0.7); Eosinophils % (A) 2 %; HCT 28.3 % (34.0-46.0); HGB 8.4 gm/dL (11.4-16.0); Hypochromasia Marked; Lymphocytes # (A) 2.2 k/uL (1.0-4.8); Lymphocytes % (A) 20 %; MCH 25.2 pg (25.0-35.0); MCHC 29.7 g/dL (31.0-37.0); Mean Platelet Volume 8.2; Monocytes # (A) 0.6 k/uL (0-1.0); Monocytes % (A) 6 %; Neutrophils # (A) 7.6 k/uL (1.3-7.7); Neutrophils % (A) 70 %; Platelet Count 368 k/uL (150-450); RBC 3.33 m/uL (3.80-5.40); RDW 15.2 % (11.5-15.5); WBC 10.9 k/uL (3.8-10.6)
[2024-04-28] MEDS: LACTULOSE 20 GM/30 ML CUP PO PRN (08:25)
[2024-04-28 11:20] LABS: Glucose,Whole Blood 77 mg/dL (70-110)
[2024-04-28 13:04] LABS: % Iron Saturation 7.35 (12.00-45.00)
--- NOTE | 2024-04-28 13:33 | P.PN ---
Subjective Progress Note Date: 04/28/24 HISTORY OF PRESENTING ILLNESS This is a pleasant 58-year-old with past medical history significant for hype rtension, hyperlipidemia, CAD with prior PCI of the RCA and circumflex, diabetes mellitus type 2 and PAD and nonhealing ulcer. She follows in the office with Dr Donahue. She does have PAD and had recent lower extremity stenting in the setting of nonhealing ulcer. She presented 04/20 secondary to increased left foot pain and infection with possible osteomyelitis. She was scheduled for debridement however upon induction of anesthesia patient had hypoxic episode and asystole requiring CPR. This was felt related to bronchospasm and during the time of intubation per anesthesia. She had return of spontaneous circulation and has been off of any vasopressors. She was extubated and surgery was not performed. Currently she denies any chest pain other than where her chest compressions were performed. Troponins elevated 3.2, 11.5. EKG showing normal sinus rhythm, poor R-wave progression, diffuse mild ST depressions in the lateral leads. She has had prior stress test from 2020 with abnormal anterior ischemia and plan was to repeat stress testing at some point in cardiology office. 04/27 She underwent left heart catheterization 04/26/2024 which revealed triple-vessel CAD with severe stenosis of the RCA and LAD. She was referred for evaluation by CV surgery and deemed to be at higher risk due to foot infection. Hemoglobin 7.6, creatinine 1.25, potassium 3.9. She denies any chest pain or pressure. Shortness of breath is stable. 04/28 Patient sitting up edge of bed. She denies any chest pain or pressure. Shortness of breath is okay. Hemoglobin 8.4 this morning. PHYSICAL EXAMINATION Vital signs reviewed. CONSTITUTIONAL: No apparent distress. HEENT: Head is normocephalic. Pupils are equal, round. Sclerae anicteric. Mucous membranes of the mouth are moist. No JVD. No carotid bruit. CHEST EXAMINATION: Lungs are clear to auscultation. No chest wall tenderness is noted on palpation or with deep breathing. HEART EXAMINATION: Regular rate and rhythm. S1, S2 heard. No murmurs, gallops or rub. ABDOMEN: Soft, nontender. EXTREMITIES: no lower extremity edema and no calf tenderness. +LLE nonhealing ulcer. NEUROLOGIC EXAMINATION: Patient is awake, alert and oriented x3. ASSESSMENT Cardiac arrest, possible hypoxic related however significant non-STEMI with concern of cardiac etiology Non-STEMI, concern of type I etiology Left foot gangrene Atypical chest pain related to CPR PAD with prior left lower extremity intervention CAD with prior history of PCI of circumflex and RCA Diabetes mellitus type 2 Anemia Hypertension Hyperlipidemia History of asthma PLAN Hemoglobin is stable, 8.4. Triple-vessel CAD with severe stenosis of RCA and LAD on left heart catheterization. She was seen by CV surgery and high risk for CABG. Plan for intervention with PCI on Monday04/29/24. Continue aspirin and heparin drip. N.p.o. after midnight. Monitor creatinine. We will follow. Patient seen and examined in rounds with Dr. Chaparro, plan of care agreed upon. Objective - Vital Signs Vital signs: Vital Signs Temp 98.2 F 04/28/24 08:10 Pulse 85 04/28/24 08:10 Resp 16 04/28/24 08:10 BP 161/83 04/28/24 08:10 Pulse Ox 96 04/28/24 08:10 FiO2 Intake & Output 04/27/24 04/28/24 04/28/24 18:59 06:59 18:59 Intake Total 168.965 250 190.725 Balance 168.965 250 190.725 Intake: Intake, IV Titration 168.965 250 72.725 Amount Ertapenem 1 gm In Sodium 50 Chloride 0.9% 50 ml @ 100 mls/hr IVPB DAILY [facility] Rx #:[id number] Heparin Sod,Pork in 0.45% 168.965 250 22.725 NaCl 25,000 unit In 0.45 % NaCl 1 250ml.bag @ 11. 428 UNITS/KG/HR 10 mls/hr IV .Q24H [facility] Rx#: [id number] Oral 118 Other: Voiding Method Toilet Toilet Bedside Commode # Voids 1 1 # Bowel Movements 1 - Labs CBC & Chem 7: 04/28/24 06:37 04/27/24 03:33 Labs: Abnormal Lab Results - Last 24 Hours (Table) 04/27/24 04/27/24 04/28/24 Range/Units 11:29 20:18 06:11 WBC (3.8-10.6) k/uL RBC (3.80-5.40) m/uL Hgb (11.4-16.0) gm/dL Hct (34.0-46.0) % MCHC (31.0-37.0) g/dL APTT (22.0-30.0) sec POC Glucose (mg/dL) 139 H 120 H 116 H (70-110) mg/dL 04/28/24 04/28/24 Range/Units 06:37 06:37 WBC 10.9 H (3.8-10.6) k/uL RBC 3.33 L (3.80-5.40) m/uL Hgb 8.4 L (11.4-16.0) gm/dL Hct 28.3 L (34.0-46.0) % MCHC 29.7 L (31.0-37.0) g/dL APTT 43.2 H (22.0-30.0) sec POC Glucose (mg/dL) (70-110) mg/dL
[2024-04-28 14:04] LABS: Glucose,Whole Blood 65 mg/dL (70-110)
[2024-04-28 14:15] LABS: Glucose,Whole Blood 102 mg/dL (70-110)
--- NOTE | 2024-04-28 15:40 | P.PN ---
Subjective Progress Note Date: 04/28/24 Principal diagnosis: Left diabetic foot ulcer/for surgical infection Patient is a 58-year-old female with a past medical history significant for diabetes mellitus hypertension hyperlipidemia [place] recently admitted to hospital with back left fifth toe gangrene diabetic foot infection in this patient who is status post left fifth toe amputation on 03/29/2024, presenting back to the hospital worsening wound to the left fifth toe amputation site with some discoloration. On today's evaluation that is 04/28/2024, Patient is afebrile patient is currently on room air and denies having any shortness of breath, the patient denies any chest pain or cough, the patient denies any nausea vomiting did not have any abdominal pain and no diarrhea denies any worsening pain to the left foot wound. Patient had a white count of 10.9 Objective - Vital Signs Vital signs: Vital Signs Temp 97.9 F 04/28/24 11:30 Pulse 76 04/28/24 11:30 Resp 16 04/28/24 11:30 BP 158/67 04/28/24 11:30 Pulse Ox 98 04/28/24 11:30 FiO2 Intake & Output 04/27/24 04/28/24 04/28/24 18:59 06:59 18:59 Intake Total 168.965 250 190.725 Balance 168.965 250 190.725 Intake: Intake, IV Titration 168.965 250 72.725 Amount Ertapenem 1 gm In Sodium 50 Chloride 0.9% 50 ml @ 100 mls/hr IVPB DAILY [facility] Rx #:[id number] Heparin Sod,Pork in 0.45% 168.965 250 22.725 NaCl 25,000 unit In 0.45 % NaCl 1 250ml.bag @ 11. 428 UNITS/KG/HR 10 mls/hr IV .Q24H [facility] Rx#: [id number] Oral 118 Other: Voiding Method Toilet Toilet Bedside Commode # Voids 1 1 1 # Bowel Movements 1 1 - Exam GENERAL DESCRIPTION: Middle-aged female lying in bed in no distress RESPIRATORY SYSTEM: Unlabored breathing , decreased breath sounds at bases HEART: S1 S2 regular rate and rhythm , ABDOMEN: Soft , no tenderness EXTREMITIES: Left foot is currently dressed no drainage on the dressing - Labs CBC & Chem 7: 04/28/24 06:37 04/27/24 03:33 Labs: Abnormal Lab Results - Last 24 Hours (Table) 04/27/24 04/28/24 04/28/24 Range/Units 20:18 06:11 06:37 WBC 10.9 H (3.8-10.6) k/uL RBC 3.33 L (3.80-5.40) m/uL Hgb 8.4 L (11.4-16.0) gm/dL Hct 28.3 L (34.0-46.0) % MCHC 29.7 L (31.0-37.0) g/dL APTT (22.0-30.0) sec POC Glucose (mg/dL) 120 H 116 H (70-110) mg/dL Iron (50-170) UG/DL % Saturation (12.00-45.00) Transferrin (204.0-354.0) mg/dL 04/28/24 04/28/24 04/28/24 Range/Units 06:37 06:37 13:53 WBC (3.8-10.6) k/uL RBC (3.80-5.40) m/uL Hgb (11.4-16.0) gm/dL Hct (34.0-46.0) % MCHC (31.0-37.0) g/dL APTT 43.2 H (22.0-30.0) sec POC Glucose (mg/dL) 65 L (70-110) mg/dL Iron 20 L (50-170) UG/DL % Saturation 7.35 L (12.00-45.00) Transferrin 194.0 L (204.0-354.0) mg/dL 04/28/24 Range/Units 14:26 WBC (3.8-10.6) k/uL RBC (3.80-5.40) m/uL Hgb (11.4-16.0) gm/dL Hct (34.0-46.0) % MCHC (31.0-37.0) g/dL APTT 61.7 H (22.0-30.0) sec POC Glucose (mg/dL) (70-110) mg/dL Iron (50-170) UG/DL % Saturation (12.00-45.00) Transferrin (204.0-354.0) mg/dL Assessment and Plan (1) Left foot infection Current Visit: Yes Status: Acute Code(s): L08.9 - LOCAL INFECTION OF THE SKIN AND SUBCUTANEOUS TISSUE, UNSP SNOMED Code(s): 127004854 (2) Allergy to multiple antibiotics Current Visit: No Status: Acute Code(s): Z88.1 - ALLERGY STATUS TO OTHER ANTIBIOTIC AGENTS SNOMED Code(s): 166192763 (3) Cellulitis of left foot Current Visit: No Status: Acute Code(s): L03.116 - CELLULITIS OF LEFT LOWER LIMB SNOMED Code(s): 12349063047318535 Plan: 1patient with a left fifth toe diabetic foot wound and this patient was status post amputation of the left fifth toe now with evidence of nonhealing wound to the left fifth amputation site and some gangrene failing outpatient oral Augmentin therapy we will need to cover for resistant gram-positive as well as gram-negative pathogen. 2patient has been evaluated by vascular surgery and planning for debridement of the wound, surgery has been postponed patient did have a cardiac cath and this plan is for PTCA and stent tomorrow 3patient initial culture currently growing ESBL E. coli as well as anaerobes 4- patient is afebrile white count normalized, we will continue patient on ertapenem and monitor clinical course closely Dictation was produced using [employer] dictation software. please excuse any grammatical, word or spelling errors. Time with Patient: Less than 30
[2024-04-28 15:56] LABS: Glucose,Whole Blood 161 mg/dL (70-110)
--- NOTE | 2024-04-28 17:38 | P.PN ---
Progress Note - Text Progress Note Date: 04/28/24 Chief Complaint: Left foot infection Patient is a 58-year-old female with known history of coronary disease status post stent placement, diabetes type 2 insulin-dependent, hypertension, asthma and history of retinitis pigmentosa, anxiety 03/05/2024: CT angiogram of the abdomen aorta with runoff showed heavily calcified bilateral lower extremity arterial vasculature involving the superficial femoral arteries and extending inferiorly to the popliteal artery to the feet is limited due to severe atherosclerotic plaque. Patient was discharged from the hospital on March [address] Ledesma. Left toe was felt will probably demarcate. With gangrene. March 28: Left fifth toe ray amputation carried out by Dr. Ledesma. Patient did not return to the office outpatient to see Dr. Ledesma on April 08. There was some odor from the amputation site. Was given 10-day course of Augmentin. Patient now presents with increasing drainage and highly sensitive area of the left foot. No fever no chills. Appetite not too good. Has been using a walker April 22: Sitting at the edge of bed. Seen earlier by Dr. Haines from vascular. Plan for local debridement and deep tissue culture on April 24. Also seen by ID. Patient IV cefepime and vancomycin. And Flagyl. Eating 100% April 23: Resting in bed. Pending debridement of wound tomorrow. Getting IV cefepime IV vancomycin. Wound culture growing E. coli. April 24: Saw the patient this morning. Resting bed. Pending debridement. On antibiotics. NPO. IV this afternoon I got a call from Dr. Ledesma vascular surgery. Patient had respiratory compromise had to be intubated. Moved to the ICU. April 25: Patient in the ICU. Yesterday when patient is given anesthesia patient had a cardiac arrest. Had to be intubated. Was shortly extubated t after. Debridement was postponed. Patient's troponin became positive. Peaked at 11.5. He is planning for a cardiac catheterization. Patient initially refused antibiotics feeling is causing her bloating. I did explain to the patient that several of the reasons for the same. Has agreed to take antibiotics. On IV heparin EKG showed ST depression and some T wave changes April 26: Underwent cardiac catheterization by Dr. Andrea Donahue this morning. It showed: Long segment of severe stenosis 80 to 90% RCA. Circumflex 30%. LAD is diffusely diseased subtotally occluded in its midportion. Severe stenosis within the stent. Cardiology decided to do a stent to be done on Monday. Also seen by the cardiothoracic team. No intervention at the present time. Left foot wound has a wound VAC in place. Currently no plans for surgical debridement. Santyl is going to be placed and probably wound VAC removed. Discussed with patient April 27: Patient due for catheterization with stent on Monday. Getting IV heparin. Some throat discomfort from intubation. Oral intake fair. IV antibiotics April 28: Stable. Sitting at the edge edge of the bed. IV heparin. No chest pain or short of breath. Tolerating diet. Discussed. On IV or ertapenem. Daily Active Medications Acetaminophen (Acetaminophen Tab 325 Mg Tab) 650 mg PO Q6HR PRN PRN Reason: Mild Pain or Fever > 100.5 Last Admin: 04/28/24 08:28 Dose: 650 mg Albuterol Sulfate (Albuterol Hfa Inhaler) 2 puff INHALATION RT-Q6H PRN PRN Reason: Shortness Of Breath Alprazolam (Alprazolam 0.25 Mg Tab) 0.25 mg PO Q6HR PRN PRN Reason: Mild Anxiety Alprazolam (Alprazolam 0.5 Mg Tab) 0.5 mg PO Q6HR PRN PRN Reason: Moderate Anxiety Aspirin (Aspirin 81 Mg) 81 mg PO DAILY [facility] Last Admin: 04/28/24 08:27 Dose: 81 mg Atorvastatin Calcium (Atorvastatin 80 Mg Tab) 80 mg PO HS [facility] Last Admin: 04/27/24 20:23 Dose: Not Given Calcium Carbonate/Glycine (Calcium Carbonate 500 Mg Chewable) 1,000 mg PO Q4HR PRN PRN Reason: Dyspepsia Last Admin: 04/24/24 09:14 Dose: 1,000 mg Clopidogrel Bisulfate (Clopidogrel 75 Mg Tab) 75 mg PO DAILY [facility] Last Admin: 04/28/24 08:27 Dose: 75 mg Collagenase (Collagenase 250 Unit/Gm Ointment 30 Gm Tube) 1 applic TOPICAL DAILY [facility]; Protocol Last Admin: 04/28/24 11:31 Dose: 1 applic Famotidine (Famotidine 20 Mg Tab) 20 mg PO DAILY [facility] Last Admin: 04/28/24 08:27 Dose: 20 mg Gabapentin (Gabapentin 100 Mg Cap) 100 mg PO TID [facility] Last Admin: 04/28/24 16:56 Dose: 100 mg Lisinopril/HCTZ (Lisinopril-Hctz 20-25 Mg 1 Each Tab) 1 each PO DAILY [facility] Last Admin: 04/28/24 08:27 Dose: 1 each Heparin Sodium (Porcine) (Heparin Sodium 1,000 Un/Ml (10ml Vl)) 0 unit IV PER PROTOCOL PRN; Protocol PRN Reason: Low PTT Last Admin: 04/28/24 08:25 Dose: 2,187.5 unit Hydromorphone HCl (Hydromorphone 0.5 Mg/0.5 Ml Syringe) 0.5 mg IVP Q3HR PRN PRN Reason: Moderate Pain (Scale 4 to 6) Last Admin: 04/24/24 21:18 Dose: 0.5 mg Hydromorphone HCl (Hydromorphone 1 Mg/Ml 1 Ml Syringe) 1 mg IVP Q3HR PRN PRN Reason: Severe Pain (Scale 7 to 10) Sodium Chloride (Saline 0.9%) 1,000 mls @ 75 mls/hr IV .[id number] [facility] Last Admin: 04/28/24 16:56 Dose: 75 mls/hr Ertapenem 1 gm/ Sodium (Chloride) 50 mls @ 100 mls/hr IVPB DAILY [facility]; Protocol Last Admin: 04/28/24 08:26 Dose: 100 mls/hr Heparin Sodium/Sodium Chloride (25,000 unit/ Sodium Chloride) 250 mls @ 10 mls/hr IV .Q24H [facility]; Protocol Last Titration: 04/28/24 08:26 Dose: 16.428 units/kg/hr, 14.375 mls/hr Insulin Aspart (Insulin Aspart (Novolog) 100 Unit/Ml Vial) 0 unit SQ ACHS [facility]; Protocol Last Admin: 04/28/24 16:56 Dose: 3 unit Insulin Detemir (Insulin Detemir (Levemir) 100 Unit/Ml Syr) 30 unit SQ HS [facility] Last Admin: 04/27/24 21:48 Dose: 30 unit Insulin Human Regular (Insulin Regular 100 Unit/Ml Vial (Iv)) 30 unit SQ BID [facility] Last Admin: 04/28/24 08:27 Dose: 30 unit Lactulose (Lactulose 20 Gm/30 Ml Cup) 20 gm PO DAILY PRN PRN Reason: Constipation Last Admin: 04/28/24 08:25 Dose: 20 gm Lorazepam (Lorazepam 0.5 Mg Tab) 0.5 mg PO Q6HR PRN PRN Reason: Anxiety Last Admin: 04/25/24 03:31 Dose: 0.5 mg Melatonin (Melatonin 3 Mg Tablet) 3 mg PO HS PRN PRN Reason: Insomnia Metoprolol Tartrate (Metoprolol Tartrate 50 Mg Tab) 50 mg PO BID [facility] Last Admin: 04/28/24 08:27 Dose: 50 mg Naloxone HCl (Naloxone 0.4 Mg/Ml 1 Ml Vial) 0.2 mg IV Q2M PRN PRN Reason: Opioid Reversal Nitroglycerin (Nitroglycerin Sl Tabs 0.4 Mg Tab) 0.4 mg SUBLINGUAL Q5M PRN PRN Reason: Chest Pain Ondansetron HCl (Ondansetron 4 Mg/2 Ml Vial) 4 mg IVP Q8HR PRN PRN Reason: Nausea And Vomiting Last Admin: 04/24/24 13:59 Dose: 4 mg Social history: Lives alone. No alcohol. Patient smoked 1 pack a day from 1983. On examination: VITAL SIGNS: 97.6, 79, 18, 166/79, 98% room air GENERAL APPEARANCE: Sitting at the edge of the bed HEENT: Normal external appearance of nose and ear. Oral cavity normal EYES: Pupils equal. Conjunctiva normal. NECK: JVD not raised. Mass not palpable. RESPIRATORY: Respiratory effort normal. Lungs clear to auscultation. CARDIOVASCULAR: First and second sounds normal. No edema. ABDOMEN: Soft. Liver and spleen not palpable. No tenderness. No mass palpable. PSYCHIATRY: Alert and oriented x3. Mood and affect normal. EXTREMITIES: Left foot in a dressing INVESTIGATIONS, reviewed in the clinical context: April 28: White count 10.9 hemoglobin 8.4 iron 20 TIBC 272% saturation 7.35 April 27: White count 10.2 hemoglobin 7.6 potassium 3.9 BUN 44 creatinine 1.25 April 25: White count 12.8 hemoglobin 9.7 platelets 377 potassium 4.8 creatinine 0.81 Troponin I-3.2, 11.5 April 24: White count 10.8 hemoglobin 8.8 potassium 4.7 creatinine 0.9 April 23: White count 9.9 hemoglobin 9 potassium 4.5 creatinine 1.01 April 21: White count 10.2 hemoglobin 8.8 platelets 404 April 20: Sodium 132 potassium 5.3 BUN 26 creatinine 1.0 Previous testing Hemoglobin 8.[address]ogram: [February 2022] heavily calcified bilateral lower extremity arterial vasculature involving the superficial femoral arteries. Extending inferiorly. Extending into the femoral artery then is limited due to severe atherosclerotic plaque. Multiple areas of high-grade stenosis. Assessment and plan: -Acute left fifth toe dry gangrene and diabetic foot infection, secondary to diabetes and PAD, leading to left fifth toe amputation ray on March [address] Ledesma Return to see Dr. Ledesma in the office on April 08 with some drainage and being to have an order follow-up. Discharged on 10 days of Augmentin. Now presents with worsening local area with drainage and odor increased yesterday. On IV vancomycin. IV cefepime. P.o. Flagyl-followed by ID Being followed by Dr. Ledesma.-Debridement postponed for now. Wound VAC removed topical Santyl -Acute non-Q wave AL. Troponin peaked at 11.5 IV heparin. Pending cardiac catheterization on Monday -Severe triple-vessel coronary artery disease per cardiac catheterization Seen by cardiothoracic team.-Currently not for any intervention Patient to go back to the [facility] on Monday for stenting -IV heparin monitoring Follow PTT -Severe peripheral arterial disease As per CT angiogram. Aspirin, Plavix held for now in case of surgical intervention Lipitor 40 mg nightly -Diabetes type 2 insulin-dependent uncontrolled A1c level 9.6 Levemir, Humulin R. Accu-Cheks with sliding scale insulin -Iron deficiency anemia -Coronary disease with history of stent placement Plavix- Aspirin-. Lipitor -Essential hypertension Lopressor 50 mg twice daily. 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 6 Weight loss measures -Anxiety -Full code Continue IV heparin, IV antibiotics. For cardiac cath tomorrow for stent. Past Medical History Past Medical History: Asthma, Blood Disorder, Coronary Artery Disease (CAD), Diabetes Mellitus, Eye Disorder, GERD/Reflux, Hyperlipidemia, Hypertension, Myocardial Infarction (AL), Pneumonia, Skin Disorder, Vascular Disorder Additional Past Medical History / Comment(s): Type II diabetic IDDM. retinitis pigmentosa (losing peripheral vision), Hx of cellulitis lt foot March 03, 2024. Circulation issues to lt leg-recent February 2024. IBD. Recent hospitalization @[facility] February-pt states she was anemic. States Hgb at discharge was 8.4. Pt states she had re-draw last week @[facility] out pt lab and it was Hgb was 9.6. She states she was put on Multivitamin. Last Myocardial Infarction Date:: 05/2015 History of Any Multi-Drug Resistant Organisms: None Reported Past Surgical History: Heart Catheterization, Heart Catheterization With Stent Additional Past Surgical History / Comment(s): boil under armpit (2000) Cardiac stent x3. Stent to lt leg March 07, 2024. Past Anesthesia/Blood Transfusion Reactions: No Reported Reaction Additional Past Anesthesia/Blood Transfusion Reaction / Comment(s): No hx of blood transfusion. Date of Last Stent Placement:: 05/30/2015 Past Psychological History: Anxiety Smoking Status: Former smoker Past Alcohol Use History: None Reported Past Drug Use History: None Reported
[2024-04-28 19:56] LABS: Glucose,Whole Blood 163 mg/dL (70-110)
[2024-04-29 05:52] LABS: Glucose,Whole Blood 103 mg/dL (70-110)
[2024-04-29] MEDS: ATORVASTATIN 80 MG TAB PO STA ×2 (05:55→06:01)
[2024-04-29] MEDS: ASPIRIN 325 MG TAB PO STA ×2 (05:55→06:00)
[2024-04-29 07:28] LABS: Basophils % (A) 0 %; Eosinophils # (A) 0.3 k/uL (0-0.7); Eosinophils % (A) 2 %; HCT 30.1 % (34.0-46.0); HGB 9.2 gm/dL (11.4-16.0); Hypochromasia Marked; Lymphocytes # (A) 1.6 k/uL (1.0-4.8); Lymphocytes % (A) 15 %; MCH 26.1 pg (25.0-35.0); MCHC 30.5 g/dL (31.0-37.0); MCV 85.5 fL (80.0-100.0); Mean Platelet Volume 7.8; Monocytes # (A) 0.5 k/uL (0-1.0); Monocytes % (A) 5 %; Neutrophils # (A) 8.2 k/uL (1.3-7.7); Neutrophils % (A) 76 %; Platelet Count 381 k/uL (150-450); RBC 3.52 m/uL (3.80-5.40); RDW 15.3 % (11.5-15.5); WBC 10.8 k/uL (3.8-10.6)
[2024-04-29 07:54] LABS: African American GFR (CKD) 67 (>60 ml/min/1.73 sqM); Anion Gap 7 mmol/L; Blood Urea Nitrogen 29 mg/dL (7-17); Carbon Dioxide 28 mmol/L (22-30); Chloride 104 mmol/L (98-107); Glucose 96 mg/dL (74-99); Non-African American GFR(CKD) 58 (>60 ml/min/1.73 sqM); Potassium 4.3 mmol/L (3.5-5.1); Sodium 139 mmol/L (137-145)
[2024-04-29] MEDS ORDERED: LIDOCAINE 1% INJ 10MG/ML (20 ML MDV) ONE (09:11)
[2024-04-29] MEDS ORDERED: VERAPAMIL 2.5 MG/ML 2 ML AMP ONE (09:11)
[2024-04-29] MEDS ORDERED: fentaNYL (PF) 50 MCG/ML 2 ML AMP ONE (09:12)
[2024-04-29] MEDS ORDERED: HEPARIN SODIUM 1,000 UN/ML (10ML VL) ONE (09:12)
[2024-04-29] MEDS: fentaNYL (PF) 50 MCG/1 ML VIAL IVP ONE (10:10)
[2024-04-29] MEDS: LIDOCAINE 1% INJ 10MG/ML (20 ML MDV) SQ ONE (10:18)
[2024-04-29] MEDS: MIDAZOLAM 2 MG/2 ML VIAL IVP ONE ×2 (10:19→10:26)
[2024-04-29] MEDS: VERAPAMIL SYRINGE (5 MG/10 ML) INTRAARTER ONE (10:20)
[2024-04-29] MEDS: SODIUM CHLORIDE 0.9% 1,000 ML IV ONE (10:21)
[2024-04-29] MEDS: HEPARIN SODIUM 1,000 UN/ML (10ML VL) IVP ONE ×2 (10:30→10:43)
[2024-04-29] MEDS: HEPARIN SODIUM,PORCINE (1 ML) 2,500 UNIT in SODIUM CHLORIDE 0.9% 250 ML IRRIGATION ONE (11:02)
[2024-04-29] MEDS: IOPAMIDOL-370 100ML BTL INTRATHECA ONE (11:03)
[2024-04-29] MEDS: HEPARIN SODIUM (1,000 UNIT/ML) 1,000 UNIT in SODIUM CHLORIDE 0.9% 1,000 ML IRRIGATION ONE (11:03)
[2024-04-29] MEDS ORDERED: RX INFO: IV CONTRAST WAS GIVEN 1 EACH MISC MISCELLANE PRN (11:10)
[2024-04-29] MEDS ORDERED: NITROGLYCERIN SL TABS 0.4 MG TAB SUBLINGUAL PRN (11:10)
[2024-04-29] MEDS ORDERED: ZOLPIDEM 5 MG TAB PO PRN (11:10)
--- NOTE | 2024-04-29 11:20 | P.CARDCATH ---
Date of Procedure: 04/29/24 Description of Procedure: PERCUTANEOUS TRANSLUMINAL CORONARY ANGIOPLASTY CLINICAL INFORMATION: The patient is a 58-year-old female with known history of hypertension, hyperlipidemia, diabetes, smoking and a prior history of CAD status post PCI in 2014 who presented with nonhealing ulcer on her foot with se yoandy PAD. The patient was scheduled for debridement and had a cardiac arrest and subsequent elevation of her troponin. She underwent coronary angiography by Dr. Donahue and was found to have severe disease in the RCA and subtotal occlusion of the LAD with minimal distal flow. Her echocardiogram showed anteroapical severe hypokinesis to akinesis. She was evaluated by the surgical team who felt that she is a high risk for surgical intervention. Recommendations were made regarding angioplasty and stenting. The procedure as well as the risks and the complications were discussed with the patient who was in full understanding and agreement. PROCEDURE: The patient was brought to the [facility] in the fasting semisedated state after receiving fentanyl and Benadryl. She was draped and prepped in the conventional fashion. Using Xylocaine anesthesia a 6 [place] sheath was introduced in the left radial artery. A 6 [place] 4 guiding catheter was introduced into the system. After cannulating the right coronary ostium, a 0.014 BMW J-wire was advanced across the lesion and positioned distally. Following that a 2.5 x 12 mm NC trek balloon was advanced and inflated at 8 atmosphere throughout the mid segment. After removing the balloon a 6 [place] guide liner was introduced and subsequently a Isabella Nenana eye IVUS was advanced and imaging were obtained. It revealed diffusely diseased mid segment of the RCA with mild to moderate calcification. The distal reference was 4.0 to 4.2 mm in diameter. Following that a 4.0 x 48 mm Xience williams point stent was deployed. It was dilated at 16 sayda. Repeat IVUS imaging was performed and subsequently a 4.0 x 20 mm NC trek balloon was advanced and multiple inflations at 10 sayda were done. After the last inflation, after appropriate wait, the balloon and the guidewire were withdrawn back into the guiding catheter. Images were obtained and repeated. Those images reveal stable successful stenting. At that point, the guiding catheter, the balloon, and guidewire were removed. The sheath was removed. Hemostasis was obtained with deployment of a TR band. There were no immediate complications. The patient was returned to the room in stable condition. Of note, the patient received 8000 units of heparin as well as continued Plavix. His ACT was followed. There was no immediate complications. She had chest discomfort and EKG changes with the inflations that resolved at the end of the procedure. She had significant spasm in the left radial artery. RESULTS: Successful stenting of the long segment of the mid right coronary art giuliana with reduction of stenosis from 99% to 0% with IVUS imaging and MARISEL-3 flow. RECOMMENDATIONS: The patient will continue on aspirin and clopidogrel for 1 year without any interruption in addition to aggressive coronary risks modification, attempting to maintain LDL below 70 mg/dL. She will be evaluated to see if there is any viability on the anterior wall and if so consider revascularization. The findings and recommendations were discussed with the patient and she was in full understanding and agreement. Her family was not available. Duration of sedation: 44 minutes
[2024-04-29 11:35] LABS: Glucose,Whole Blood 106 mg/dL (70-110)
[2024-04-29] MEDS: ATROPINE SULFATE 0.1 MG/ML 10ML SYRINGE IV PRN (12:01)
[2024-04-29] MEDS: SODIUM CHLORIDE 0.9% 1,000 ML in EMPTY BAG 1 BAG IV SCH (12:59)
--- NOTE | 2024-04-29 13:47 | P.PN ---
Progress Note - Text Progress Note Date: 04/29/24 Chief Complaint: Left foot infection Patient is a 58-year-old female with known history of coronary disease status post stent placement, diabetes type 2 insulin-dependent, hypertension, asthma and history of retinitis pigmentosa, anxiety 03/05/2024: CT angiogram of the abdomen aorta with runoff showed heavily calcified bilateral lower extremity arterial vasculature involving the superficial femoral arteries and extending inferiorly to the popliteal artery to the feet is limited due to severe atherosclerotic plaque. Patient was discharged from the hospital on March [address] Ledesma. Left toe was felt will probably demarcate. With gangrene. March 28: Left fifth toe ray amputation carried out by Dr. Ledesma. Patient did not return to the office outpatient to see Dr. Ledesma on April 08. There was some odor from the amputation site. Was given 10-day course of Augmentin. Patient now presents with increasing drainage and highly sensitive area of the left foot. No fever no chills. Appetite not too good. Has been using a walker April 22: Sitting at the edge of bed. Seen earlier by Dr. Haines from vascular. Plan for local debridement and deep tissue culture on April 24. Also seen by ID. Patient IV cefepime and vancomycin. And Flagyl. Eating 100% April 23: Resting in bed. Pending debridement of wound tomorrow. Getting IV cefepime IV vancomycin. Wound culture growing E. coli. April 24: Saw the patient this morning. Resting bed. Pending debridement. On antibiotics. NPO. IV this afternoon I got a call from Dr. Ledesma vascular surgery. Patient had respiratory compromise had to be intubated. Moved to the ICU. April 25: Patient in the ICU. Yesterday when patient is given anesthesia patient had a cardiac arrest. Had to be intubated. Was shortly extubated t after. Debridement was postponed. Patient's troponin became positive. Peaked at 11.5. He is planning for a cardiac catheterization. Patient initially refused antibiotics feeling is causing her bloating. I did explain to the patient that several of the reasons for the same. Has agreed to take antibiotics. On IV heparin EKG showed ST depression and some T wave changes April 26: Underwent cardiac catheterization by Dr. Andrea Donahue this morning. It showed: Long segment of severe stenosis 80 to 90% RCA. Circumflex 30%. LAD is diffusely diseased subtotally occluded in its midportion. Severe stenosis within the stent. Cardiology decided to do a stent to be done on Monday. Also seen by the cardiothoracic team. No intervention at the present time. Left foot wound has a wound VAC in place. Currently no plans for surgical debridement. Santyl is going to be placed and probably wound VAC removed. Discussed with patient April 27: Patient due for catheterization with stent on Monday. Getting IV heparin. Some throat discomfort from intubation. Oral intake fair. IV antibiotics April 28: Stable. Sitting at the edge edge of the bed. IV heparin. No chest pain or short of breath. Tolerating diet. Discussed. On IV or ertapenem. April 29: Patient underwent a cardiac catheterization by Dr. Madrid. Stent was placed to the RCA. Further evaluation with possible stress testing will be done for the LAD lesion. Patient resting in bed. No chest pain or shortness of breath. Active Medications Acetaminophen (Acetaminophen Tab 325 Mg Tab) 650 mg PO Q6HR PRN PRN Reason: Mild Pain or Fever > 100.5 Last Admin: 04/28/24 20:22 Dose: 650 mg Al Hydroxide/Mg Hydroxide (Mag Hydrox/Al Hydrox/Simeth 30 Ml Cup) 30 ml PO Q4HR PRN PRN Reason: Heartburn Albuterol Sulfate (Albuterol Hfa Inhaler) 2 puff INHALATION RT-Q6H PRN PRN Reason: Shortness Of Breath Alprazolam (Alprazolam 0.25 Mg Tab) 0.25 mg PO Q6HR PRN PRN Reason: Mild Anxiety Alprazolam (Alprazolam 0.5 Mg Tab) 0.5 mg PO Q6HR PRN PRN Reason: Moderate Anxiety Aspirin (Aspirin 81 Mg) 81 mg PO DAILY [facility] Atorvastatin Calcium (Atorvastatin 80 Mg Tab) 80 mg PO HS [facility] Last Admin: 04/28/24 20:05 Dose: Not Given Atropine Sulfate (Atropine Sulfate 0.1 Mg/Ml 10ml Syringe) 0.5 mg IV ONCE PRN PRN Reason: Symptomatic Bradycardia Last Admin: 04/29/24 12:01 Dose: 0.5 mg Calcium Carbonate/Glycine (Calcium Carbonate 500 Mg Chewable) 1,000 mg PO Q4HR PRN PRN Reason: Dyspepsia Last Admin: 04/24/24 09:14 Dose: 1,000 mg Clopidogrel Bisulfate (Clopidogrel 75 Mg Tab) 75 mg PO DAILY [facility] Last Admin: 04/29/24 06:00 Dose: 75 mg Collagenase (Collagenase 250 Unit/Gm Ointment 30 Gm Tube) 1 applic TOPICAL DAILY [facility]; Protocol Last Admin: 04/29/24 07:03 Dose: 1 applic Famotidine (Famotidine 20 Mg Tab) 20 mg PO DAILY [facility] Last Admin: 04/29/24 06:01 Dose: 20 mg Gabapentin (Gabapentin 100 Mg Cap) 100 mg PO TID [facility] Last Admin: 04/29/24 08:20 Dose: 100 mg Lisinopril/HCTZ (Lisinopril-Hctz 20-25 Mg 1 Each Tab) 1 each PO DAILY [facility] Last Admin: 04/29/24 07:01 Dose: 1 each Hydromorphone HCl (Hydromorphone 0.5 Mg/0.5 Ml Syringe) 0.5 mg IVP Q3HR PRN PRN Reason: Moderate Pain (Scale 4 to 6) Last Admin: 04/24/24 21:18 Dose: 0.5 mg Hydromorphone HCl (Hydromorphone 1 Mg/Ml 1 Ml Syringe) 1 mg IVP Q3HR PRN PRN Reason: Severe Pain (Scale 7 to 10) Sodium Chloride (Saline 0.9%) 1,000 mls @ 75 mls/hr IV .[id number] [facility] Last Admin: 04/29/24 06:28 Dose: Not Given Ertapenem 1 gm/ Sodium (Chloride) 50 mls @ 100 mls/hr IVPB DAILY [facility]; Protocol Last Admin: 04/29/24 05:59 Dose: 100 mls/hr Sodium Chloride 1,000 ml/ IV (Solution) 1,000 mls @ 87.5 mls/hr IV .[id number] [facility] Stop: 04/29/24 14:16 Last Admin: 04/29/24 12:59 Dose: Not Given Insulin Aspart (Insulin Aspart (Novolog) 100 Unit/Ml Vial) 0 unit SQ ACHS [facility]; Protocol Last Admin: 04/29/24 12:59 Dose: Not Given Insulin Detemir (Insulin Detemir (Levemir) 100 Unit/Ml Syr) 30 unit SQ HS [facility] Last Admin: 04/28/24 20:22 Dose: 30 unit Insulin Human Regular (Insulin Regular 100 Unit/Ml Vial (Iv)) 30 unit SQ BID [facility] Last Admin: 04/29/24 05:50 Dose: Not Given Lactulose (Lactulose 20 Gm/30 Ml Cup) 20 gm PO DAILY PRN PRN Reason: Constipation Last Admin: 04/28/24 08:25 Dose: 20 gm Lorazepam (Lorazepam 0.5 Mg Tab) 0.5 mg PO Q6HR PRN PRN Reason: Anxiety Last Admin: 04/25/24 03:31 Dose: 0.5 mg Melatonin (Melatonin 3 Mg Tablet) 3 mg PO HS PRN PRN Reason: Insomnia Metoprolol Tartrate (Metoprolol Tartrate 50 Mg Tab) 50 mg PO BID [facility] Last Admin: 04/29/24 06:01 Dose: 50 mg Miscellaneous Information (Rx Info: Iv Contrast Was Given 1 Each Misc) 1 each MISCELLANE DAILY PRN PRN Reason: Per Protocol Stop: 05/01/24 11:11 Naloxone HCl (Naloxone 0.4 Mg/Ml 1 Ml Vial) 0.2 mg IV Q2M PRN PRN Reason: Opioid Reversal Nitroglycerin (Nitroglycerin Sl Tabs 0.4 Mg Tab) 0.4 mg SUBLINGUAL Q5M PRN PRN Reason: Chest Pain Nitroglycerin (Nitroglycerin Sl Tabs 0.4 Mg Tab) 0.4 mg SUBLINGUAL Q5M PRN PRN Reason: Chest Pain Ondansetron HCl (Ondansetron 4 Mg/2 Ml Vial) 4 mg IVP Q8HR PRN PRN Reason: Nausea And Vomiting Last Admin: 04/29/24 11:43 Dose: 4 mg Zolpidem Tartrate (Zolpidem 5 Mg Tab) 5 mg PO HS PRN PRN Reason: Insomnia Social history: Lives alone. No alcohol. Patient smoked 1 pack a day from 1983 through 9897. On examination: VITAL SIGNS: 97.6, 44, 16, 98/57, 98% room air GENERAL APPEARANCE: Reclining in bed, comfortable HEENT: Normal external appearance of nose and ear. Oral cavity normal EYES: Pupils equal. Conjunctiva normal. NECK: JVD not raised. Mass not palpable. RESPIRATORY: Respiratory effort normal. Lungs clear to auscultation. CARDIOVASCULAR: First and second sounds normal. No edema. ABDOMEN: Soft. Liver and spleen not palpable. No tenderness. No mass palpable. PSYCHIATRY: Alert and oriented x3. Mood and affect normal. EXTREMITIES: Left foot in a dressing INVESTIGATIONS, reviewed in the clinical context: April 29: White count 10.8 hemoglobin 9.2 potassium 4.3 creatinine 1.05 April 28: White count 10.9 hemoglobin 8.4 iron 20 TIBC 272% saturation 7.35 April 27: White count 10.2 hemoglobin 7.6 potassium 3.9 BUN 44 creatinine 1.25 April 25: White count 12.8 hemoglobin 9.7 platelets 377 potassium 4.8 creatinine 0.81 Troponin I-3.2, 11.5 April 24: White count 10.8 hemoglobin 8.8 potassium 4.7 creatinine 0.9 April 23: White count 9.9 hemoglobin 9 potassium 4.5 creatinine 1.01 April 21: White count 10.2 hemoglobin 8.8 platelets 404 April 20: Sodium 132 potassium 5.3 BUN 26 creatinine 1.0 Previous testing Hemoglobin 8.[address]ogram: [February 2022] heavily calcified bilateral lower extremity arterial vasculature involving the superficial femoral arteries. Extending inferiorly. Extending into the femoral artery then is limited due to severe atherosclerotic plaque. Multiple areas of high-grade stenosis. Assessment and plan: -Acute left fifth toe dry gangrene and diabetic foot infection, secondary to diabetes and PAD, leading to left fifth toe amputation ray on March [address] Ledesma Return to see Dr. Ledesma in the office on April 08 with some drainage and being to have an order follow-up. Discharged on 10 days of Augmentin. Now presents with worsening local area with drainage and odor increased yesterday. On IV vancomycin. IV cefepime. P.o. Flagyl-followed by ID Being followed by Dr. Ldeesma.-Debridement postponed for now. Wound VAC removed topical Santyl -Acute non-Q wave AK. Troponin peaked at 11.5 IV heparin. April 29: Cardiac catheterization by Dr. Madrid. Stent to RCA. Lesion to LAD to be further evaluated. -Severe triple-vessel coronary artery disease per cardiac catheterization Seen by cardiothoracic team.-Currently not for any intervention Stent to RCA on April 29 -IV heparin monitoring Follow PTT -Severe peripheral arterial disease As per CT angiogram. Aspirin, Plavix held for now in case of surgical intervention Lipitor 40 mg nightly -Diabetes type 2 insulin-dependent uncontrolled A1c level 9.6 Levemir, Humulin R. Accu-Cheks with sliding scale insulin -Iron deficiency anemia -Coronary disease with history of stent placement Plavix- Aspirin-. Lipitor -Essential hypertension Lopressor 50 mg twice daily. 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 6 Weight loss measures -Anxiety -Full code Stent to RCA today. Further evaluation for LAD lesion possible stress testing. Follow with cardiology. Past Medical History Past Medical History: Asthma, Blood Disorder, Coronary Artery Disease (CAD), Diabetes Mellitus, Eye Disorder, GERD/Reflux, Hyperlipidemia, Hypertension, Myocardial Infarction (AK), Pneumonia, Skin Disorder, Vascular Disorder Additional Past Medical History / Comment(s): Type II diabetic IDDM. retinitis pigmentosa (losing peripheral vision), Hx of cellulitis lt foot March 03, 2024. Circulation issues to lt leg-recent February 2024. IBD. Recent hospitalization @[facility] February-pt states she was anemic. States Hgb at discharge was 8.4. Pt states she had re-draw last week @[facility] out pt lab and it was Hgb was 9.6. She states she was put on Multivitamin. Last Myocardial Infarction Date:: 05/2015 History of Any Multi-Drug Resistant Organisms: None Reported Past Surgical History: Heart Catheterization, Heart Catheterization With Stent Additional Past Surgical History / Comment(s): boil under armpit (2000) Cardiac stent x3. Stent to lt leg March 07, 2024. Past Anesthesia/Blood Transfusion Reactions: No Reported Reaction Additional Past Anesthesia/Blood Transfusion Reaction / Comment(s): No hx of blood transfusion. Date of Last Stent Placement:: 05/30/2015 Past Psychological History: Anxiety Smoking Status: Former smoker Past Alcohol Use History: None Reported Past Drug Use History: None Reported
[2024-04-29 14:23] VITALS: BMI 33.0
[2024-04-29] MEDS: ATROPINE SULFATE 0.1 MG/ML 10ML SYRINGE IV STA (15:44)
[2024-04-29 16:19] LABS: Glucose,Whole Blood 237 mg/dL (70-110)
[2024-04-29] MEDS: MAG HYDROX/AL HYDROX/SIMETH 30 ML CUP PO PRN (17:09)
[2024-04-29 20:52] LABS: Glucose,Whole Blood 255 mg/dL (70-110)
[2024-04-29 23:10] LABS: Glucose,Whole Blood 258 mg/dL (70-110)
[2024-04-30 05:39] LABS: Glucose,Whole Blood 299 mg/dL (70-110)
[2024-04-30] MEDS: ASPIRIN 81 MG PO SCH (09:52)
[2024-04-30 11:08] LABS: Glucose,Whole Blood 333 mg/dL (70-110)
--- NOTE | 2024-04-30 11:16 | P.PN ---
Subjective Progress Note Date: 04/30/24 HISTORY OF PRESENTING ILLNESS This is a pleasant 58-year-old with past medical history significant for hyp ertension, hyperlipidemia, CAD with prior PCI of the RCA and circumflex, diabetes mellitus type 2 and PAD and nonhealing ulcer. She follows in the office with Dr Donahue. She does have PAD and had recent lower extremity stenting in the setting of nonhealing ulcer. She presented 04/20 secondary to increased left foot pain and infection with possible osteomyelitis. She was scheduled for debridement 04/24 however upon induction of anesthesia patient had hypoxic episode and asystole requiring CPR. This was felt related to bronchospasm and during the time of intubation per anesthesia. She had return of spontaneous circulation and has been off of any vasopressors. She was extubated and surgery was not performed. Currently she denies any chest pain other than where her chest compressions were performed. Troponins elevated 3.2, 11.5. EKG showing normal sinus rhythm, poor R-wave progression, diffuse mild ST depressions in the lateral leads. She has had prior stress test from 2020 with abnormal anterior ischemia and plan was to repeat stress testing at some point in cardiology office. 04/27 She underwent left heart catheterization 04/26/2024 which revealed triple-vessel CAD with severe stenosis of the RCA and LAD. She was referred for evaluation by CV surgery and deemed to be at higher risk due to foot infection. Hemoglobin 7.6, creatinine 1.25, potassium 3.9. She denies any chest pain or pressure. Shortness of breath is stable. 04/28 Patient sitting up edge of bed. She denies any chest pain or pressure. Shortness of breath is okay. Hemoglobin 8.4 this morning. 04/30 Yesterday, patient underwent PTCA with Dr. Madrid, stenting of the mid RCA. Illnesses or yesterday afternoon after cardiac catheterization, patient did have some bradycardia in the 40s for which atropine 0.5 mg x 2 doses were given. Last evening, patient received beta-jasmyne and she had decrease in her heart rate again and a pause of 4.9 seconds. We will discontinue beta-jasmyne today. atient noted to have a 4.9-second pause yesterday evening. Yesterday afternoon after cath PHYSICAL EXAMINATION Vital signs reviewed. CONSTITUTIONAL: No apparent distress. HEENT: Head is normocephalic. Pupils are equal, round. Sclerae anicteric. Mucous membranes of the mouth are moist. No JVD. No carotid bruit. CHEST EXAMINATION: Lungs are clear to auscultation. No chest wall tenderness is noted on palpation or with deep breathing. HEART EXAMINATION: Regular rate and rhythm. S1, S2 heard. No murmurs, gallops or rub. ABDOMEN: Soft, nontender. EXTREMITIES: no lower extremity edema and no calf tenderness. +LLE nonhealing ulcer. NEUROLOGIC EXAMINATION: Patient is awake, alert and oriented x3. ASSESSMENT Cardiac arrest, possible hypoxic related however significant non-STEMI Non-STEMI, triple-vessel disease with severe stenosis of RCA and LAD on the left heart catheterization status post stenting of the mid RCA Left foot gangrene with prior left fifth toe amputation 03/28 Diabetic ulcer left foot, present on admission Atypical chest pain related to CPR PAD with prior left lower extremity intervention CAD with prior history of PCI of circumflex and RCA Diabetes mellitus type 2 Anemia Hypertension Hyperlipidemia History of asthma Bradycardia with sinus pause 4.9-seconds PLAN Continue the following medications: Aspirin 81 mg daily, atorvastatin 80 mg at bedtime, Plavix 75 mg daily Start patient on Farxiga 10 mg daily, Entresto 24-26 mg twice daily, Aldactone 25 mg daily Discontinue lisinopril/hydrochlorothiazide, last dose was given 04/30. Start Entresto tomorrow morning. Discontinue beta-jasmyne completely Continue telemetry monitoring for another 24 hours and anticipate discharge home on Monday. Further recommendations as patient progresses. Nurse practitioner note has been reviewed, I agree with documented findings and plan of care. Patient was seen and examined. Objective - Vital Signs Vital signs: Vital Signs Temp 97.9 F 04/30/24 03:55 Pulse 46 L 04/30/24 03:55 Resp 16 04/30/24 03:55 BP 113/67 04/30/24 03:55 Pulse Ox 97 04/30/24 03:55 FiO2 Intake & Output 04/29/24 04/30/24 04/30/24 18:59 06:59 18:59 Intake Total 708.813 260 240 Output Total 700 Balance 708.813 -440 240 Weight 87.5 kg 91.5 kg Intake: IV 460 20 Invasive Line 4 10 20 Intake, IV Titration 130.813 Amount Heparin Sod,Pork in 0.45% 130.813 NaCl 25,000 unit In 0.45 % NaCl 1 250ml.bag @ 11. 428 UNITS/KG/HR 10 mls/hr IV .Q24H [facility] Rx#: [id number] Oral 118 240 240 Output: Urine 700 Straight 500 Other: Voiding Method Bedside Commode Bedside Commode # Voids 1 - Labs CBC & Chem 7: 04/29/24 06:56 04/29/24 06:56 Labs: Abnormal Lab Results - Last 24 Hours (Table) 04/29/24 04/29/24 04/29/24 Range/Units 14:08 16:18 20:50 APTT 97.1 H (22.0-30.0) sec POC Glucose (mg/dL) 237 H 255 H (70-110) mg/dL 04/29/24 04/30/24 Range/Units 23:09 05:38 APTT (22.0-30.0) sec POC Glucose (mg/dL) 258 H 299 H (70-110) mg/dL
[2024-04-30] MEDS: DAPAGLIFLOZIN PROPANEDIOL 10 MG TABLET PO SCH (12:32)
[2024-04-30] MEDS: SPIRONOLACTONE 25 MG TAB PO SCH (12:32)
[2024-04-30 12:37] LABS: HCT 26.7 % (34.0-46.0); HGB 7.8 gm/dL (11.4-16.0); Hypochromasia Marked; MCH 25.5 pg (25.0-35.0); MCHC 29.2 g/dL (31.0-37.0); MCV 87.4 fL (80.0-100.0); Mean Platelet Volume 8.2; Platelet Count 322 k/uL (150-450); RBC 3.06 m/uL (3.80-5.40); RDW 15.4 % (11.5-15.5); WBC 11.8 k/uL (3.8-10.6)
[2024-04-30 12:41] LABS: African American GFR (CKD) 22 (>60 ml/min/1.73 sqM); Anion Gap 7 mmol/L; Blood Urea Nitrogen 46 mg/dL (7-17); Calcium 8.1 mg/dL (8.4-10.2); Carbon Dioxide 25 mmol/L (22-30); Chloride 103 mmol/L (98-107); Glucose 241 mg/dL (74-99); Non-African American GFR(CKD) 19 (>60 ml/min/1.73 sqM); Potassium 4.7 mmol/L (3.5-5.1); Sodium 135 mmol/L (137-145)
--- NOTE | 2024-04-30 15:16 | P.PN ---
Subjective Progress Note Date: 04/29/24 Principal diagnosis: Left diabetic foot ulcer/for surgical infection Patient is a 58-year-old female with a past medical history significant for diabetes mellitus hypertension hyperlipidemia [place] recently admitted to hospital with back left fifth toe gangrene diabetic foot infection in this patient who is status post left fifth toe amputation on 03/29/2024, presenting back to the hospital worsening wound to the left fifth toe amputation site with some discoloration.Patient is status post PTCA and stent of the long segment mid right coronary artery completed on 04/29/2024 On today's evaluation 04/29/2024, patient has been afebrile, patient is breathing comfortably and is currently on room air, patient denies having any significant cough no chest pain shortness of breath, patient denies nausea vomiting or diarrhea and no abdominal pain, denies worsening pain to the left foot Patient white count is 10.8 creatinine 1.05 Objective - Vital Signs Vital signs: Vital Signs Temp 97.6 F 04/29/24 15:40 Pulse 55 L 04/29/24 15:40 Resp 16 04/29/24 14:01 BP 118/75 04/29/24 15:40 Pulse Ox 95 04/29/24 15:40 FiO2 Intake & Output 04/28/24 04/29/24 04/29/24 18:59 06:59 18:59 Intake Total 310.725 232.99 708.813 Output Total 600 Balance 310.725 -367.01 708.813 Weight 87.5 kg Intake: IV 10 20 460 Invasive Line 4 10 20 10 Intake, IV Titration 72.725 212.99 130.813 Amount Ertapenem 1 gm In Sodium 50 Chloride 0.9% 50 ml @ 100 mls/hr IVPB DAILY [facility] Rx #:[id number] Heparin Sod,Pork in 0.45% 22.725 212.99 130.813 NaCl 25,000 unit In 0.45 % NaCl 1 250ml.bag @ 11. 428 UNITS/KG/HR 10 mls/hr IV .Q24H [facility] Rx#: [id number] Oral 228 118 Output: Urine 600 Other: Voiding Method Bedside Commode Bedside Commode Bedside Commode # Voids 1 1 # Bowel Movements 1 - Exam GENERAL DESCRIPTION: Middle-aged female lying in bed in no distress RESPIRATORY SYSTEM: Unlabored breathing , decreased breath sounds at bases HEART: S1 S2 regular rate and rhythm , ABDOMEN: Soft , no tenderness EXTREMITIES: Left foot is currently dressed no drainage on the dressing - Labs CBC & Chem 7: 04/30/24 11:40 04/30/24 11:40 Labs: Abnormal Lab Results - Last 24 Hours (Table) 04/28/24 04/29/24 04/29/24 Range/Units 19:54 06:56 06:56 WBC 10.8 H (3.8-10.6) k/uL RBC 3.52 L (3.80-5.40) m/uL Hgb 9.2 L (11.4-16.0) gm/dL Hct 30.1 L (34.0-46.0) % MCHC 30.5 L (31.0-37.0) g/dL Neutrophils # 8.2 H (1.3-7.7) k/uL APTT (22.0-30.0) sec BUN 29 H (7-17) mg/dL Creatinine 1.05 H (0.52-1.04) mg/dL POC Glucose (mg/dL) 163 H (70-110) mg/dL 04/29/24 04/29/24 04/29/24 Range/Units 06:56 14:08 16:18 WBC (3.8-10.6) k/uL RBC (3.80-5.40) m/uL Hgb (11.4-16.0) gm/dL Hct (34.0-46.0) % MCHC (31.0-37.0) g/dL Neutrophils # (1.3-7.7) k/uL APTT 43.0 H 97.1 H (22.0-30.0) sec BUN (7-17) mg/dL Creatinine (0.52-1.04) mg/dL POC Glucose (mg/dL) 237 H (70-110) mg/dL Assessment and Plan (1) Left foot infection Current Visit: Yes Status: Acute Code(s): L08.9 - LOCAL INFECTION OF THE SKIN AND SUBCUTANEOUS TISSUE, UNSP SNOMED Code(s): 194041522 (2) Allergy to multiple antibiotics Current Visit: No Status: Acute Code(s): Z88.1 - ALLERGY STATUS TO OTHER ANTIBIOTIC AGENTS SNOMED Code(s): 446640157 (3) Cellulitis of left foot Current Visit: No Status: Acute Code(s): L03.116 - CELLULITIS OF LEFT LOWER LIMB SNOMED Code(s): 83763021931563011 Plan: 1patient with a left fifth toe diabetic foot wound and this patient was status post amputation of the left fifth toe now with evidence of nonhealing wound to the left fifth amputation site and some gangrene failing outpatient oral Augmentin therapy we will need to cover for resistant gram-positive as well as gram-negative pathogen. 2patient has been evaluated by vascular surgery and planning for debridement of the wound, surgery has been postponed patient did have a cardiac cath and this plan is status post PTCA and stenting of the right coronary artery completed on 04/29/2024 3patient initial culture currently growing ESBL E. coli as well as anaerobes 4- patient is afebrile white count normalized currently undergoing cardiac workup and waiting for possible debridement of the left foot wound, we will continue patient on ertapenem and monitor clinical course closely Dictation was produced using [employer] dictation software. please excuse any g rammatical, word or spelling errors. Time with Patient: Less than 30
--- NOTE | 2024-04-30 15:17 | P.PN ---
Subjective Progress Note Date: 04/30/24 Principal diagnosis: Left diabetic foot ulcer/for surgical infection Patient is a 58-year-old female with a past medical history significant for diabetes mellitus hypertension hyperlipidemia NV recently admitted to hospital with back left fifth toe gangrene diabetic foot infection in this patient who is status post left fifth toe amputation on 03/29/2024, presenting back to the hospital worsening wound to the left fifth toe amputation site with some discoloration.Patient is status post PTCA and stent of the long segment mid right coronary artery completed on 04/29/2024 On today's evaluation 04/30/2024, Patient is afebrile this morning and denies any chills, patient mention breathing comfortably and is currently on room air, patient denies any chest pain occasional cough patient denies any abdominal pain no diarrhea no nausea no vomiting, patient pain to the left foot is currently controlled. Patient white count 11.8 did have worsening creatinine which is up to 2.61 Objective - Vital Signs Vital signs: Vital Signs Temp 97.6 F 04/30/24 12:31 Pulse 59 L 04/30/24 13:41 Resp 16 04/30/24 12:31 BP 161/83 04/30/24 12:31 Pulse Ox 97 04/30/24 12:31 FiO2 Intake & Output 04/29/24 04/30/24 04/30/24 18:59 06:59 18:59 Intake Total 708.813 260 700 Output Total 700 Balance 708.813 -440 700 Weight 87.5 kg 91.5 kg Intake: IV 460 20 220 Invasive Line 4 10 20 20 Sodium Chloride 0.9% 1, 200 000 ml @ 75 mls/hr IV . [id number] [facility] Rx#:[id number] Intake, IV Titration 130.813 Amount Heparin Sod,Pork in 0.45% 130.813 NaCl 25,000 unit In 0.45 % NaCl 1 250ml.bag @ 11. 428 UNITS/KG/HR 10 mls/hr IV .Q24H [facility] Rx#: [id number] Oral 118 240 480 Output: Urine 700 Straight 500 Other: Voiding Method Bedside Commode Bedside Commode Bedside Commode # Voids 1 - Exam GENERAL DESCRIPTION: Middle-aged female lying in bed in no distress RESPIRATORY SYSTEM: Unlabored breathing , decreased breath sounds at bases HEART: S1 S2 regular rate and rhythm , ABDOMEN: Soft , no tenderness EXTREMITIES: Left foot lateral border wound still have significant amount of slough tissue and some foul-smelling drainage - Labs CBC & Chem 7: 04/30/24 11:40 04/30/24 11:40 Labs: Abnormal Lab Results - Last 24 Hours (Table) 04/29/24 04/29/24 04/29/24 Range/Units 16:18 20:50 23:09 WBC (3.8-10.6) k/uL RBC (3.80-5.40) m/uL Hgb (11.4-16.0) gm/dL Hct (34.0-46.0) % MCHC (31.0-37.0) g/dL Sodium (137-145) mmol/L BUN (7-17) mg/dL Creatinine (0.52-1.04) mg/dL Glucose (74-99) mg/dL POC Glucose (mg/dL) 237 H 255 H 258 H (70-110) mg/dL Calcium (8.4-10.2) mg/dL 04/30/24 04/30/24 04/30/24 Range/Units 05:38 11:06 11:40 WBC 11.8 H (3.8-10.6) k/uL RBC 3.06 L (3.80-5.40) m/uL Hgb 7.8 L (11.4-16.0) gm/dL Hct 26.7 L (34.0-46.0) % MCHC 29.2 L (31.0-37.0) g/dL Sodium (137-145) mmol/L BUN (7-17) mg/dL Creatinine (0.52-1.04) mg/dL Glucose (74-99) mg/dL POC Glucose (mg/dL) 299 H 333 H (70-110) mg/dL Calcium (8.4-10.2) mg/dL 04/30/24 Range/Units 11:40 WBC (3.8-10.6) k/uL RBC (3.80-5.40) m/uL Hgb (11.4-16.0) gm/dL Hct (34.0-46.0) % MCHC (31.0-37.0) g/dL Sodium 135 L (137-145) mmol/L BUN 46 H (7-17) mg/dL Creatinine 2.61 H (0.52-1.04) mg/dL Glucose 241 H (74-99) mg/dL POC Glucose (mg/dL) (70-110) mg/dL Calcium 8.1 L (8.4-10.2) mg/dL Assessment and Plan (1) Left foot infection Current Visit: Yes Status: Acute Code(s): L08.9 - LOCAL INFECTION OF THE SKIN AND SUBCUTANEOUS TISSUE, UNSP SNOMED Code(s): 975989296 (2) Allergy to multiple antibiotics Current Visit: No Status: Acute Code(s): Z88.1 - ALLERGY STATUS TO OTHER ANTIBIOTIC AGENTS SNOMED Code(s): 516487129 (3) Cellulitis of left foot Current Visit: No Status: Acute Code(s): L03.116 - CELLULITIS OF LEFT LOWER LIMB SNOMED Code(s): 17544282750070212 Plan: 1patient with a left fifth toe diabetic foot wound and this patient was status post amputation of the left fifth toe now with evidence of nonhealing wound to the left fifth amputation site and some gangrene failing outpatient oral Augmentin therapy we will need to cover for resistant gram-positive as well as gram-negative pathogen. 2patient has been evaluated by vascular surgery and planning for debridement of the wound, surgery has been postponed patient did have a cardiac cath and this plan is status post PTCA and stenting of the right coronary artery completed on 04/29/2024 3patient initial culture currently growing ESBL E. coli as well as anaerobes 4- patient is afebrile still has significant amount of slough tissue to the left foot and will benefit from surgical debridement with concern for deep infection she will need a PICC line outpatient IV antibiotic therapy, worsening of the creatinine will benefit from nephrology evaluation Dictation was produced using [employer] dictation software. please excuse any grammatical, word or spelling errors. Time with Patient: Less than 30
[2024-04-30 16:14] LABS: Glucose,Whole Blood 137 mg/dL (70-110)
--- NOTE | 2024-04-30 17:49 | P.PN ---
Progress Note - Text Progress Note Date: 04/30/24 Chief Complaint: Left foot infection Patient is a 58-year-old female with known history of coronary disease status post stent placement, diabetes type 2 insulin-dependent, hypertension, asthma and history of retinitis pigmentosa, anxiety 03/05/2024: CT angiogram of the abdomen aorta with runoff showed heavily calcified bilateral lower extremity arterial vasculature involving the superficial femoral arteries and extending inferiorly to the popliteal artery to the feet is limited due to severe atherosclerotic plaque. Patient was discharged from the hospital on March [address] Ledesma. Left toe was felt will probably demarcate. With gangrene. March 28: Left fifth toe ray amputation carried out by Dr. Ledesma. Patient did not return to the office outpatient to see Dr. Ledesma on April 08. There was some odor from the amputation site. Was given 10-day course of Augmentin. Patient now presents with increasing drainage and highly sensitive area of the left foot. No fever no chills. Appetite not too good. Has been using a walker April 22: Sitting at the edge of bed. Seen earlier by Dr. Haines from vascular. Plan for local debridement and deep tissue culture on April 24. Also seen by ID. Patient IV cefepime and vancomycin. And Flagyl. Eating 100% April 23: Resting in bed. Pending debridement of wound tomorrow. Getting IV cefepime IV vancomycin. Wound culture growing E. coli. April 24: Saw the patient this morning. Resting bed. Pending debridement. On antibiotics. NPO. IV this afternoon I got a call from Dr. Ledesma vascular surgery. Patient had respiratory compromise had to be intubated. Moved to the ICU. April 25: Patient in the ICU. Yesterday when patient is given anesthesia patient had a cardiac arrest. Had to be intubated. Was shortly extubated t after. Debridement was postponed. Patient's troponin became positive. Peaked at 11.5. He is planning for a cardiac catheterization. Patient initially refused antibiotics feeling is causing her bloating. I did explain to the patient that several of the reasons for the same. Has agreed to take antibiotics. On IV heparin EKG showed ST depression and some T wave changes April 26: Underwent cardiac catheterization by Dr. Andrea Donahue this morning. It showed: Long segment of severe stenosis 80 to 90% RCA. Circumflex 30%. LAD is diffusely diseased subtotally occluded in its midportion. Severe stenosis within the stent. Cardiology decided to do a stent to be done on Monday. Also seen by the cardiothoracic team. No intervention at the present time. Left foot wound has a wound VAC in place. Currently no plans for surgical debridement. Santyl is going to be placed and probably wound VAC removed. Discussed with patient April 27: Patient due for catheterization with stent on Monday. Getting IV heparin. Some throat discomfort from intubation. Oral intake fair. IV antibiotics April 28: Stable. Sitting at the edge edge of the bed. IV heparin. No chest pain or short of breath. Tolerating diet. Discussed. On IV or ertapenem. April 29: Patient underwent a cardiac catheterization by Dr. Madrid. Stent was placed to the RCA. Further evaluation with possible stress testing will be done for the LAD lesion. Patient resting in bed. No chest pain or shortness of breath. April 30: No chest pain. Lisinopril has been held. PICC line planned per ID. Also been started on Farxiga. Creatinine bumped to 2.61. Discussed with Dr. Woo. Will hold off Entresto and Aldactone for now. Will do strict I's and O's. Consult nephrology. Suspect contrast-induced nephropathy. Active Medications Acetaminophen (Acetaminophen Tab 325 Mg Tab) 650 mg PO Q6HR PRN PRN Reason: Mild Pain or Fever > 100.5 Last Admin: 04/28/24 20:22 Dose: 650 mg Al Hydroxide/Mg Hydroxide (Mag Hydrox/Al Hydrox/Simeth 30 Ml Cup) 30 ml PO Q4HR PRN PRN Reason: Heartburn Last Admin: 04/29/24 23:09 Dose: 30 ml Albuterol Sulfate (Albuterol Hfa Inhaler) 2 puff INHALATION RT-Q6H PRN PRN Reason: Shortness Of Breath Alprazolam (Alprazolam 0.25 Mg Tab) 0.25 mg PO Q6HR PRN PRN Reason: Mild Anxiety Alprazolam (Alprazolam 0.5 Mg Tab) 0.5 mg PO Q6HR PRN PRN Reason: Moderate Anxiety Aspirin (Aspirin 81 Mg) 81 mg PO DAILY [facility] Last Admin: 04/30/24 09:52 Dose: 81 mg Atorvastatin Calcium (Atorvastatin 80 Mg Tab) 80 mg PO HS [facility] Last Admin: 04/29/24 20:03 Dose: Not Given Calcium Carbonate/Glycine (Calcium Carbonate 500 Mg Chewable) 1,000 mg PO Q4HR PRN PRN Reason: Dyspepsia Last Admin: 04/24/24 09:14 Dose: 1,000 mg Clopidogrel Bisulfate (Clopidogrel 75 Mg Tab) 75 mg PO DAILY [facility] Last Admin: 04/30/24 09:51 Dose: 75 mg Collagenase (Collagenase 250 Unit/Gm Ointment 30 Gm Tube) 1 applic TOPICAL DAILY [facility]; Protocol Last Admin: 04/30/24 05:49 Dose: 1 applic Dapagliflozin (Dapagliflozin Propanediol 10 Mg Tablet) 10 mg PO DAILY [facility] Last Admin: 04/30/24 12:32 Dose: 10 mg Famotidine (Famotidine 20 Mg Tab) 20 mg PO DAILY [facility] Last Admin: 04/30/24 09:51 Dose: 20 mg Gabapentin (Gabapentin 100 Mg Cap) 100 mg PO TID [facility] Last Admin: 04/30/24 15:45 Dose: 100 mg Hydromorphone HCl (Hydromorphone 0.5 Mg/0.5 Ml Syringe) 0.5 mg IVP Q3HR PRN PRN Reason: Moderate Pain (Scale 4 to 6) Last Admin: 04/24/24 21:18 Dose: 0.5 mg Hydromorphone HCl (Hydromorphone 1 Mg/Ml 1 Ml Syringe) 1 mg IVP Q3HR PRN PRN Reason: Severe Pain (Scale 7 to 10) Ertapenem 0.5 gm/ Sodium (Chloride) 50 mls @ 100 mls/hr IVPB DAILY [facility]; Protocol Insulin Aspart (Insulin Aspart (Novolog) 100 Unit/Ml Vial) 0 unit SQ ACHS [facility]; Protocol Last Admin: 04/30/24 16:47 Dose: Not Given Insulin Detemir (Insulin Detemir (Levemir) 100 Unit/Ml Syr) 30 unit SQ HS [facility] Last Admin: 04/29/24 21:11 Dose: 30 unit Insulin Human Regular (Insulin Regular 100 Unit/Ml Vial (Iv)) 30 unit SQ BID [facility] Last Admin: 04/30/24 09:51 Dose: 30 unit Lactulose (Lactulose 20 Gm/30 Ml Cup) 20 gm PO DAILY PRN PRN Reason: Constipation Last Admin: 04/28/24 08:25 Dose: 20 gm Lorazepam (Lorazepam 0.5 Mg Tab) 0.5 mg PO Q6HR PRN PRN Reason: Anxiety Last Admin: 04/25/24 03:31 Dose: 0.5 mg Melatonin (Melatonin 3 Mg Tablet) 3 mg PO HS PRN PRN Reason: Insomnia Miscellaneous Information (Rx Info: Iv Contrast Was Given 1 Each Misc) 1 each MISCELLANE DAILY PRN PRN Reason: Per Protocol Stop: 05/01/24 11:11 Naloxone HCl (Naloxone 0.4 Mg/Ml 1 Ml Vial) 0.2 mg IV Q2M PRN PRN Reason: Opioid Reversal Nitroglycerin (Nitroglycerin Sl Tabs 0.4 Mg Tab) 0.4 mg SUBLINGUAL Q5M PRN PRN Reason: Chest Pain Ondansetron HCl (Ondansetron 4 Mg/2 Ml Vial) 4 mg IVP Q8HR PRN PRN Reason: Nausea And Vomiting Last Admin: 04/29/24 11:43 Dose: 4 mg Zolpidem Tartrate (Zolpidem 5 Mg Tab) 5 mg PO HS PRN PRN Reason: Insomnia Social history: Lives alone. No alcohol. Patient smoked 1 pack a day from 1983. On examination: VITAL SIGNS: 97.7, 55, 16, 130/58, 99% room air GENERAL APPEARANCE: In bed. Comfortable HEENT: Normal external appearance of nose and ear. Oral cavity normal EYES: Pupils equal. Conjunctiva normal. NECK: JVD not raised. Mass not palpable. RESPIRATORY: Respiratory effort normal. Lungs clear to auscultation. CARDIOVASCULAR: First and second sounds normal. No edema. ABDOMEN: Soft. Liver and spleen not palpable. No tenderness. No mass palpable. PSYCHIATRY: Alert and oriented x3. Mood and affect normal. EXTREMITIES: Left foot in a dressing INVESTIGATIONS, reviewed in the clinical context: April 30: White count 9.8 hemoglobin 7.8 potassium 4.7 BUN 46 creatinine 2.61 April 29: White count 10.8 hemoglobin 9.2 potassium 4.3 creatinine 1.05 April 28: White count 10.9 hemoglobin 8.4 iron 20 TIBC 272% saturation 7.35 Troponin I-3.2, 11.5 April 21: White count 10.2 hemoglobin 8.8 platelets 404 April 20: Sodium 132 potassium 5.3 BUN 26 creatinine 1.0 Previous testing Hemoglobin 8.[address]ogram: [February 2022] heavily calcified bilateral lower extremity arterial vasculature involving the superficial femoral arteries. Extending inferiorly. Extending into the femoral artery then is limited due to severe atherosclerotic plaque. Multiple areas of high-grade stenosis. Assessment and plan: -Acute left fifth toe dry gangrene and diabetic foot infection, secondary to diabetes and PAD, leading to left fifth toe amputation ray on March [address] Ledesma Return to see Dr. Ledesma in the office on April 08 with some drainage and being to have an order follow-up. Discharged on 10 days of Augmentin. Now presents with worsening local area with drainage and odor increased yesterday. Currently no IV or ertapenem Being followed by Dr. Ledesma.-Debridement postponed for now. Wound VAC removed topical Santyl Plan for PICC line and home antibiotics -Acute non-Q wave UT. Troponin peaked at 11.5 IV heparin. April 29: Cardiac catheterization by Dr. Madrid. Stent to RCA. Lesion to LAD to be further evaluated. -Acute kidney injury likely contrast-induced nephropathy. Patient has had a chest CT, to cardiac catheterization. Creatinine was running at 1.0. Now 2.6. Entresto and Aldactone discontinued. Start gentle hydration 50 cc out. Consult nephrology. Strict I's and O's. -Severe triple-vessel coronary artery disease per cardiac catheterization Seen by cardiothoracic team.-Currently not for any intervention Stent to RCA on April 29 -IV heparin monitoring-discontinued Follow PTT -Severe peripheral arterial disease As per CT angiogram. Aspirin, Plavix Lipitor 40 mg nightly -Diabetes type 2 insulin-dependent uncontrolled A1c level 9.6 Levemir, Humulin R. Accu-Cheks with sliding scale insulin -Iron deficiency anemia -Coronary disease with history of stent placement Plavix- Aspirin-. Lipitor -Essential hypertension Lopressor 50 mg twice daily. 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 6 Weight loss measures -Anxiety -Full code Hold Aldactone and Entresto. Gentle hydration. Strict I's and O's. Consult nephrology. Past Medical History Past Medical History: Asthma, Blood Disorder, Coronary Artery Disease (CAD), Diabetes Mellitus, Eye Disorder, GERD/Reflux, Hyperlipidemia, Hypertension, Myocardial Infarction ([place]), Pneumonia, Skin Disorder, Vascular Disorder Additional Past Medical History / Comment(s): Type II diabetic IDDM. retinitis pigmentosa (losing peripheral vision), Hx of cellulitis lt foot March 03, 2024. Circulation issues to lt leg-recent February 2024. IBD. Recent hospitalization @[facility] February-pt states she was anemic. States Hgb at discharge was 8.4. Pt states she had re-draw last week @[facility] out pt lab and it was Hgb was 9.6. She states she was put on Multivitamin. Last Myocardial Infarction Date:: 05/2015 History of Any Multi-Drug Resistant Organisms: None Reported Past Surgical History: Heart Catheterization, Heart Catheterization With Stent Additional Past Surgical History / Comment(s): boil under armpit (2000) Cardiac stent x3. Stent to lt leg March 07, 2024. Past Anesthesia/Blood Transfusion Reactions: No Reported Reaction Additional Past Anesthesia/Blood Transfusion Reaction / Comment(s): No hx of blood transfusion. Date of Last Stent Placement:: 05/30/2015 Past Psychological History: Anxiety Smoking Status: Former smoker Past Alcohol Use History: None Reported Past Drug Use History: None Reported
[2024-04-30] MEDS: SODIUM CHLORIDE 0.45% 1,000 ML IV SCH (18:46)
[2024-04-30 20:11] LABS: Glucose,Whole Blood 270 mg/dL (70-110)
[2024-04-30] MEDS ORDERED: SACUBITRIL/VALSARTAN 24 MG-26 MG TABLET PO SCH (21:00)
[2024-05-01 06:08] LABS: Glucose,Whole Blood 146 mg/dL (70-110)
[2024-05-01] MEDS: ERTAPENEM 0.5 GM in SODIUM CHLORIDE 0.9% 50 ML IVPB SCH (09:19)
[2024-05-01 11:45] LABS: Glucose,Whole Blood 291 mg/dL (70-110)
[2024-05-01] MEDS: METOPROLOL SUCCINATE (ER) 25 MG TAB.ER.24H PO SCH (12:10)
--- NOTE | 2024-05-01 12:11 | P.NPCON ---
History of Present Illness - Reason for Consult acute renal failure - History of Present Illness Reason for consultation: Acute kidney injury History of present illness: Patient is a 58-year-old female seen in renal consultation for acute kidney injury. Patient baseline creatinine is near 1 and was up to 2.61 as of yesterday. Patient came to the hospital on April 20, 2024 due to concern for left fifth toe infection. Patient was having pain and states that she under went amputation in February 2024. Patient has longstanding history of diabetes. Patient is also receiving Farxiga. Aldactone was discontinued April 30, 2024. Oral intake is good. Denies any vomiting or diarrhea. Patient was also receiv ing RUKHSANA inhibitor as well as thiazide diuretic which were discontinued also on April 30, 2024. Patient was scheduled to undergo debridement on April 24, 2024 but developed asystole requiring CPR. She underwent cardiac catheterization on April 18, 2024 and again April 29, 2024 with stent placed to the right coronary artery. Patient also has additional stents from before. She is currently on antibiotics for lower extremity wound infection. Denies chest pain or shortness of breath. Denies gross hematuria or dysuria. Denies family history of renal disease. Vital signs are stable. General: No acute distress. HEENT: Head exam is unremarkable. LUNGS: No audible rhonchi or wheezes. HEART: Rate and Rhythm are regular. ABDOMEN: Nontender. EXTREMITITES: No drainage. 1+ edema. Past Medical History Past Medical History: Asthma, Blood Disorder, Coronary Artery Disease (CAD), Diabetes Mellitus, Eye Disorder, GERD/Reflux, Hyperlipidemia, Hypertension, Myocardial Infarction ([place]), Pneumonia, Skin Disorder, Vascular Disorder Additional Past Medical History / Comment(s): Type II diabetic IDDM. retinitis pigmentosa (losing peripheral vision), Hx of cellulitis lt foot March 03, 2024. Circulation issues to lt leg-recent February 2024. IBD. Recent hospitalization @[facility] February-pt states she was anemic. States Hgb at discharge was 8 .4. Pt states she had re-draw last week @[facility] out pt lab and it was Hgb was 9.6. She states she was put on Multivitamin. Last Myocardial Infarction Date:: 05/2015 History of Any Multi-Drug Resistant Organisms: ESBL Date of last positivie culture/infection: 04/23/24 - ESBL MDRO Source:: TOE Past Surgical History: Heart Catheterization, Heart Catheterization With Stent Additional Past Surgical History / Comment(s): boil under armpit (2000) Cardiac stent x3. Stent to lt leg March 07, 2024. Past Anesthesia/Blood Transfusion Reactions: No Reported Reaction Additional Past Anesthesia/Blood Transfusion Reaction / Comment(s): No hx of blood transfusion. Date of Last Stent Placement:: 05/30/2015 Past Psychological History: Anxiety Smoking Status: Former smoker Past Alcohol Use History: None Reported Past Drug Use History: None Reported - Past Family History Mother Family Medical History: Hypertension Additional Family Medical History / Comment(s): borderline diabetic Father Family Medical History: Cancer Additional Family Medical History / Comment(s): leukemia, stents placed, at 81 years old Medications and Allergies Home Medications Medication Instructions Recorded Confirmed Type Lisinopril/Hydrochlorothiazide 1 tab PO DAILY 06/23/15 04/20/24 History [Zestoretic 20-] Aspirin EC [Ecotrin Low Dose] 81 mg PO DAILY 03/03/24 04/20/24 History Insulin Glargine,Hum.rec.anlog 40 units SQ HS 03/03/24 04/20/24 History [Lantus Solostar Pen] Insulin Regular [humuLIN R] 40 units SQ BID 03/03/24 04/20/24 History Metoprolol Tartrate [Lopressor] 50 mg PO BID 03/03/24 04/20/24 History Clopidogrel [Plavix] 75 mg PO DAILY 03/26/24 04/20/24 History Albuterol Sulfate [Ventolin HFA] 2 puff INHALATION RT-Q6H PRN 04/20/24 04/20/24 History Allergies Allergy/AdvReac Type Severity Reaction Status Date / Time ciprofloxacin [From Cipro] AdvReac Nausea & Verified 04/24/24 13:38 Vomiting ciprofloxacin HCl AdvReac Nausea & Verified 04/24/24 13:38 [From Cipro] Vomiting clindamycin AdvReac Nausea & Verified 04/24/24 13:38 Vomiting sulfamethoxazole AdvReac Nausea & Verified 04/24/24 13:38 [From Bactrim] Vomiting trimethoprim [From Bactrim] AdvReac Nausea & Verified 04/24/24 13:38 Vomiting Physical Exam Vitals: Vital Signs Temp Pulse Resp BP Pulse Ox 05/01/24 08:00 97.8 F 69 16 166/85 98 05/01/24 04:00 97.6 F 80 18 166/83 98 05/01/24 02:00 80 18 05/01/24 00:00 59 L 16 149/76 95 04/30/24 20:00 63 18 171/89 94 L 04/30/24 15:44 97.7 F 55 L 16 130/58 99 04/30/24 13:41 59 L 04/30/24 12:31 97.6 F 59 L 16 161/83 97 Intake and Output 04/30/24 05/01/24 05/01/24 22:59 06:59 14:59 Intake Total 540 Output Total 300 1400 600 Balance 240 -1400 -600 Intake: Oral 540 Output: Urine 300 1400 600 Other: Voiding Method Bedside Commode Bedside Commode # Voids 1 1 # Bowel Movements 1 1 Weight 89.9 kg Results - Lab Results Most recent lab results Calcium 8.1 mg/dL (8.4-10.2) L 04/30/24 11:40 04/30/24 11:40 04/30/24 11:40 Assessment and Plan Plan: Assessment: 1. Acute kidney injury secondary to ATN secondary to IV contrast exposure on April 26 and April 29, 2024, cardiac arrest, further worsen with the use of RUKHSANA inhibitor, diuretics and SGLT2 inhibitor. Baseline creatinine near 1 and up to 2.61 yesterday. 2. Left fifth toe infection status post amputation on antibiotics. 3. Status post PEA arrest. 4. Coronary disease status post cardiac stents with most recent stent placed to the RCA on April 29, 2024. 5. Diabetes mellitus. 6. Benign hypertension. 7. Mild lower extremity edema. Plan: Hep-Lock IV fluids. Stop Farxiga. Zestoretic and Aldactone have also been discontinued. Add amlodipine 5 mg once daily. Check renal ultrasound. Encouraged oral intake. Avoid nephrotoxins. Continue to monitor renal function and urine output. Thank you for the consultation. I will continue to follow the patient with you during her hospital stay.
--- NOTE | 2024-05-01 13:17 | P.PN ---
Subjective Progress Note Date: 05/01/24 HISTORY OF PRESENTING ILLNESS This is a pleasant 58-year-old with past medical history significant for hyp ertension, hyperlipidemia, CAD with prior PCI of the RCA and circumflex, diabetes mellitus type 2 and PAD and nonhealing ulcer. She follows in the office with Dr Donahue. She does have PAD and had recent lower extremity stenting in the setting of nonhealing ulcer. She presented 04/20 secondary to increased left foot pain and infection with possible osteomyelitis. She was scheduled for debridement 04/24 however upon induction of anesthesia patient had hypoxic episode and asystole requiring CPR. This was felt related to bronchospasm and during the time of intubation per anesthesia. She had return of spontaneous circulation and has been off of any vasopressors. She was extubated and surgery was not performed. Currently she denies any chest pain other than where her chest compressions were performed. Troponins elevated 3.2, 11.5. EKG showing normal sinus rhythm, poor R-wave progression, diffuse mild ST depressions in the lateral leads. She has had prior stress test from 2020 with abnormal anterior ischemia and plan was to repeat stress testing at some point in cardiology office. 04/27 She underwent left heart catheterization 04/26/2024 which revealed triple-vessel CAD with severe stenosis of the RCA and LAD. She was referred for evaluation by CV surgery and deemed to be at higher risk due to foot infection. Hemoglobin 7.6, creatinine 1.25, potassium 3.9. She denies any chest pain or pressure. Shortness of breath is stable. 04/28 Patient sitting up edge of bed. She denies any chest pain or pressure. Shortness of breath is okay. Hemoglobin 8.4 this morning. 04/30 Yesterday, patient underwent PTCA with Dr. Madrid, stenting of the mid RCA. Illnesses or yesterday afternoon after cardiac catheterization, patient did have some bradycardia in the 40s for which atropine 0.5 mg x 2 doses were given. Last evening, patient received beta-jasmyne and she had decrease in her heart rate again and a pause of 4.9 seconds. We will discontinue beta-jasmyne today. atient noted to have a 4.9-second pause yesterday evening. Yesterday afternoon after cath 05/01 Patient has had no further episodes of pauses. Heart rate has improved and running in the 70s. She denies having any chest pain or pressure and no shortness of breath. She states she is urinating a lot. Blood pressure 166/85, heart rate 69, pulse ox 98% on room air. Yesterday, patient was started on Farxiga, Entresto and Aldactone. Beta-jasmyne was held because of bradycardia and sinus pauses. Patient is concerned that she has been on metoprolol for many many years. Patient is sure that we will resume at a lower dose and monitor. PHYSICAL EXAMINATION Vital signs reviewed. CONSTITUTIONAL: No apparent distress. HEENT: Head is normocephalic. Pupils are equal, round. Sclerae anicteric. Mucous membranes of the mouth are moist. No JVD. No carotid bruit. CHEST EXAMINATION: Lungs are clear to auscultation. No chest wall tenderness is noted on palpation or with deep breathing. HEART EXAMINATION: Regular rate and rhythm. S1, S2 heard. No murmurs, gallops or rub. ABDOMEN: Soft, nontender. EXTREMITIES: no lower extremity edema and no calf tenderness. +LLE nonhealing ulcer. NEUROLOGIC EXAMINATION: Patient is awake, alert and oriented x3. ASSESSMENT Cardiac arrest, possible hypoxic related however significant non-STEMI Non-STEMI, triple-vessel disease with severe stenosis of RCA and LAD on the left heart catheterization status post stenting of the mid RCA Ischemic cardiomyopathy, EF 35 to 40%, new diagnosis Left foot gangrene with prior left fifth toe amputation 03/28 Diabetic ulcer left foot, present on admission Atypical chest pain related to CPR PAD with prior left lower extremity intervention CAD with prior history of PCI of circumflex and RCA Diabetes mellitus type 2 Anemia Hypertension Hyperlipidemia History of asthma Bradycardia with sinus pause 4.9-seconds Acute kidney injury PLAN Continue the following medications: Aspirin 81 mg daily, atorvastatin 80 mg at bedtime, Plavix 75 mg daily Farxiga 10 mg daily, Entresto 24-26 mg twice daily, Aldactone 25 mg daily--discontinued by nephrology Start patient on Toprol XL 12.5 mg daily Continue telemetry monitoring Further recommendations as patient progresses. Nurse practitioner note has been reviewed, I agree with documented findings and plan of care. Patient was seen and examined. Objective - Vital Signs Vital signs: Vital Signs Temp 97.6 F 05/01/24 04:00 Pulse 80 05/01/24 04:00 Resp 18 05/01/24 04:00 BP 166/83 05/01/24 04:00 Pulse Ox 98 05/01/24 04:00 FiO2 Intake & Output 04/30/24 05/01/24 05/01/24 18:59 06:59 18:59 Intake Total 1240 Output Total 1700 Balance 1240 -1700 Weight 89.9 kg Intake: IV 220 Invasive Line 4 20 Sodium Chloride 0.9% 1, 200 000 ml @ 75 mls/hr IV . [id number] [facility] Rx#:[id number] Oral 1020 Output: Urine 1700 Other: Voiding Method Bedside Commode Bedside Commode # Voids 1 1 # Bowel Movements 1 1 - Labs CBC & Chem 7: 04/30/24 11:40 04/30/24 11:40 Labs: Abnormal Lab Results - Last 24 Hours (Table) 04/30/24 04/30/24 04/30/24 Range/Units 11:06 11:40 11:40 WBC 11.8 H (3.8-10.6) k/uL RBC 3.06 L (3.80-5.40) m/uL Hgb 7.8 L (11.4-16.0) gm/dL Hct 26.7 L (34.0-46.0) % MCHC 29.2 L (31.0-37.0) g/dL Sodium 135 L (137-145) mmol/L BUN 46 H (7-17) mg/dL Creatinine 2.61 H (0.52-1.04) mg/dL Glucose 241 H (74-99) mg/dL POC Glucose (mg/dL) 333 H (70-110) mg/dL Calcium 8.1 L (8.4-10.2) mg/dL 04/30/24 04/30/24 05/01/24 Range/Units 16:11 20:09 06:06 WBC (3.8-10.6) k/uL RBC (3.80-5.40) m/uL Hgb (11.4-16.0) gm/dL Hct (34.0-46.0) % MCHC (31.0-37.0) g/dL Sodium (137-145) mmol/L BUN (7-17) mg/dL Creatinine (0.52-1.04) mg/dL Glucose (74-99) mg/dL POC Glucose (mg/dL) 137 H 270 H 146 H (70-110) mg/dL Calcium (8.4-10.2) mg/dL
[2024-05-01 13:36] LABS: African American GFR (CKD) 41 (>60 ml/min/1.73 sqM); Anion Gap 5 mmol/L; Blood Urea Nitrogen 41 mg/dL (7-17); Calcium 8.3 mg/dL (8.4-10.2); Carbon Dioxide 25 mmol/L (22-30); Chloride 105 mmol/L (98-107); Glucose 253 mg/dL (74-99); Non-African American GFR(CKD) 35 (>60 ml/min/1.73 sqM); Sodium 135 mmol/L (137-145)
--- NOTE | 2024-05-01 14:06 | US ---
EXAMINATION TYPE: US kidneys/renal and bladder DATE OF EXAM: 05/01/2024 Exam done portable COMPARISON: NONE CLINICAL INDICATION: Female, 58 years old with history of chris; EXAM MEASUREMENTS: Right Kidney: 9.5 x 4.4 x 5.1 cm Left Kidney: 10.8 x 6.0 x 7.1 cm Difficult and limited study due to patient body habitus Right Kidney: multiple echogenic shadowing foci throughout with largest measuring 0.9cm Left Kidney: multiple echogenic shadowing foci throughout with largest measuring 1.3cm Bladder: wnl Bilateral Jets seen: yes Gallbladder: stones/sludge There is no evidence for hydronephrosis at this point in time. No masses are identified. The urinar y bladder is anechoic. Bilateral ureteral jets are seen. IMPRESSION: No evidence for obstructive uropathy. Hyperechoic foci possibly representing nonobstructi ng calculi.
[2024-05-01] MEDS: amLODIPine 5 MG TAB PO SCH (14:25)
--- NOTE | 2024-05-01 15:17 | P.PN ---
Progress Note - Text Progress Note Date: 05/01/24 Chief Complaint: Left foot infection Patient is a 58-year-old female with known history of coronary disease status post stent placement, diabetes type 2 insulin-dependent, hypertension, asthma and history of retinitis pigmentosa, anxiety 03/05/2024: CT angiogram of the abdomen aorta with runoff showed heavily calcified bilateral lower extremity arterial vasculature involving the superficial femoral arteries and extending inferiorly to the popliteal artery to the feet is limited due to severe atherosclerotic plaque. Patient was discharged from the hospital on March [address] Ledesma. Left toe was felt will probably demarcate. With gangrene. March 28: Left fifth toe ray amputation carried out by Dr. Ledesma. Patient did not return to the office outpatient to see Dr. Ledesma on April 08. There was some odor from the amputation site. Was given 10-day course of Augmentin. Patient now presents with increasing drainage and highly sensitive area of the left foot. No fever no chills. Appetite not too good. Has been using a walker April 22: Sitting at the edge of bed. Seen earlier by Dr. Haines from vascular. Plan for local debridement and deep tissue culture on April 24. Also seen by ID. Patient IV cefepime and vancomycin. And Flagyl. Eating 100% April 23: Resting in bed. Pending debridement of wound tomorrow. Getting IV cefepime IV vancomycin. Wound culture growing E. coli. April 24: Saw the patient this morning. Resting bed. Pending debridement. On antibiotics. NPO. IV this afternoon I got a call from Dr. Ledesma vascular surgery. Patient had respiratory compromise had to be intubated. Moved to the ICU. April 25: Patient in the ICU. Yesterday when patient is given anesthesia patient had a cardiac arrest. Had to be intubated. Was shortly extubated t after. Debridement was postponed. Patient's troponin became positive. Peaked at 11.5. He is planning for a cardiac catheterization. Patient initially refused antibiotics feeling is causing her bloating. I did explain to the patient that several of the reasons for the same. Has agreed to take antibiotics. On IV heparin EKG showed ST depression and some T wave changes April 26: Underwent cardiac catheterization by Dr. Andrea Donahue this morning. It showed: Long segment of severe stenosis 80 to 90% RCA. Circumflex 30%. LAD is diffusely diseased subtotally occluded in its midportion. Severe stenosis within the stent. Cardiology decided to do a stent to be done on Monday. Also seen by the cardiothoracic team. No intervention at the present time. Left foot wound has a wound VAC in place. Currently no plans for surgical debridement. Santyl is going to be placed and probably wound VAC removed. Discussed with patient April 27: Patient due for catheterization with stent on Monday. Getting IV heparin. Some throat discomfort from intubation. Oral intake fair. IV antibiotics April 28: Stable. Sitting at the edge edge of the bed. IV heparin. No chest pain or short of breath. Tolerating diet. Discussed. On IV or ertapenem. April 29: Patient underwent a cardiac catheterization by Dr. Madrid. Stent was placed to the RCA. Further evaluation with possible stress testing will be done for the LAD lesion. Patient resting in bed. No chest pain or shortness of breath. April 30: No chest pain. Lisinopril has been held. PICC line planned per ID. Also been started on Farxiga. Creatinine bumped to 2.61. Discussed with Dr. Woo. Will hold off Entresto and Aldactone for now. Will do strict I's and O's. Consult nephrology. Suspect contrast-induced nephropathy. May 01: Comfortable. Creatinine improved to 1.58 today. Making good urine. Being followed by nephrology. Farxiga was discontinued. IV fluids discontinued by nephrology. Amlodipine was added. Discussed with patient. Follow That Active Medications Acetaminophen (Acetaminophen Tab 325 Mg Tab) 650 mg PO Q6HR PRN PRN Reason: Mild Pain or Fever > 100.5 Last Admin: 05/01/24 09:19 Dose: 325 mg Al Hydroxide/Mg Hydroxide (Mag Hydrox/Al Hydrox/Simeth 30 Ml Cup) 30 ml PO Q4HR PRN PRN Reason: Heartburn Last Admin: 04/29/24 23:09 Dose: 30 ml Albuterol Sulfate (Albuterol Hfa Inhaler) 2 puff INHALATION RT-Q6H PRN PRN Reason: Shortness Of Breath Alprazolam (Alprazolam 0.25 Mg Tab) 0.25 mg PO Q6HR PRN PRN Reason: Mild Anxiety Alprazolam (Alprazolam 0.5 Mg Tab) 0.5 mg PO Q6HR PRN PRN Reason: Moderate Anxiety Amlodipine Besylate (Amlodipine 5 Mg Tab) 5 mg PO DAILY [facility] Last Admin: 05/01/24 14:25 Dose: 5 mg Aspirin (Aspirin 81 Mg) 81 mg PO DAILY [facility] Last Admin: 05/01/24 09:19 Dose: 81 mg Atorvastatin Calcium (Atorvastatin 80 Mg Tab) 80 mg PO HS [facility] Last Admin: 04/30/24 21:01 Dose: Not Given Calcium Carbonate/Glycine (Calcium Carbonate 500 Mg Chewable) 1,000 mg PO Q4HR PRN PRN Reason: Dyspepsia Last Admin: 04/24/24 09:14 Dose: 1,000 mg Clopidogrel Bisulfate (Clopidogrel 75 Mg Tab) 75 mg PO DAILY [facility] Last Admin: 05/01/24 09:19 Dose: 75 mg Collagenase (Collagenase 250 Unit/Gm Ointment 30 Gm Tube) 1 applic TOPICAL DAILY [facility]; Protocol Last Admin: 05/01/24 09:18 Dose: 1 applic Famotidine (Famotidine 20 Mg Tab) 20 mg PO DAILY [facility] Last Admin: 05/01/24 09:19 Dose: 20 mg Gabapentin (Gabapentin 100 Mg Cap) 100 mg PO TID [facility] Last Admin: 05/01/24 09:19 Dose: 100 mg Hydromorphone HCl (Hydromorphone 0.5 Mg/0.5 Ml Syringe) 0.5 mg IVP Q3HR PRN PRN Reason: Moderate Pain (Scale 4 to 6) Last Admin: 04/24/24 21:18 Dose: 0.5 mg Hydromorphone HCl (Hydromorphone 1 Mg/Ml 1 Ml Syringe) 1 mg IVP Q3HR PRN PRN Reason: Severe Pain (Scale 7 to 10) Ertapenem 0.5 gm/ Sodium (Chloride) 50 mls @ 100 mls/hr IVPB DAILY [facility]; Protocol Last Admin: 05/01/24 09:19 Dose: 100 mls/hr Insulin Aspart (Insulin Aspart (Novolog) 100 Unit/Ml Vial) 0 unit SQ ACHS [facility]; Protocol Last Admin: 05/01/24 12:11 Dose: 9 unit Insulin Detemir (Insulin Detemir (Levemir) 100 Unit/Ml Syr) 30 unit SQ HS [facility] Last Admin: 04/30/24 21:10 Dose: 30 unit Insulin Human Regular (Insulin Regular 100 Unit/Ml Vial (Iv)) 30 unit SQ BID [facility] Last Admin: 05/01/24 09:20 Dose: Not Given Lactulose (Lactulose 20 Gm/30 Ml Cup) 20 gm PO DAILY PRN PRN Reason: Constipation Last Admin: 04/28/24 08:25 Dose: 20 gm Lorazepam (Lorazepam 0.5 Mg Tab) 0.5 mg PO Q6HR PRN PRN Reason: Anxiety Last Admin: 04/25/24 03:31 Dose: 0.5 mg Melatonin (Melatonin 3 Mg Tablet) 3 mg PO HS PRN PRN Reason: Insomnia Metoprolol Succinate (Metoprolol Succinate (Er) 25 Mg Tab.Er.24h) 12.5 mg PO DAILY [facility] Last Admin: 05/01/24 12:10 Dose: 12.5 mg Naloxone HCl (Naloxone 0.4 Mg/Ml 1 Ml Vial) 0.2 mg IV Q2M PRN PRN Reason: Opioid Reversal Nitroglycerin (Nitroglycerin Sl Tabs 0.4 Mg Tab) 0.4 mg SUBLINGUAL Q5M PRN PRN Reason: Chest Pain Ondansetron HCl (Ondansetron 4 Mg/2 Ml Vial) 4 mg IVP Q8HR PRN PRN Reason: Nausea And Vomiting Last Admin: 04/29/24 11:43 Dose: 4 mg Zolpidem Tartrate (Zolpidem 5 Mg Tab) 5 mg PO HS PRN PRN Reason: Insomnia Social history: Lives alone. No alcohol. Patient smoked 1 pack a day from 1983 through 9897. On examination: VITAL SIGNS: 97.8, 69, 16, 1 6685, 98% room air GENERAL APPEARANCE: In bed. Comfortable HEENT: Normal external appearance of nose and ear. Oral cavity normal EYES: Pupils equal. Conjunctiva normal. NECK: JVD not raised. Mass not palpable. RESPIRATORY: Respiratory effort normal. Lungs clear to auscultation. CARDIOVASCULAR: First and second sounds normal. No edema. ABDOMEN: Soft. Liver and spleen not palpable. No tenderness. No mass palpable. PSYCHIATRY: Alert and oriented x3. Mood and affect normal. EXTREMITIES: Left foot in a dressing INVESTIGATIONS, reviewed in the clinical context: May 01: Sodium 135 potassium 5 BUN 41 creatinine 1.58 April 30: White count 9.8 hemoglobin 7.8 potassium 4.7 BUN 46 creatinine 2.61 April 29: White count 10.8 hemoglobin 9.2 potassium 4.3 creatinine 1.05 April 28: White count 10.9 hemoglobin 8.4 iron 20 TIBC 272% saturation 7.35 Troponin I-3.2, 11.5 April 21: White count 10.2 hemoglobin 8.8 platelets 404 April 20: Sodium 132 potassium 5.3 BUN 26 creatinine 1.0 Previous testing Hemoglobin 8.[address]ogram: [February 2022] heavily calcified bilateral lower extremity arterial v asculature involving the superficial femoral arteries. Extending inferiorly. Extending into the femoral artery then is limited due to severe atherosclerotic plaque. Multiple areas of high-grade stenosis. Assessment and plan: -Acute left fifth toe dry gangrene and diabetic foot infection, secondary to diabetes and PAD, leading to left fifth toe amputation ray on March [address] Ledesma Return to see Dr. Ledesma in the office on April 08 with some drainage and being to have an order follow-up. Discharged on 10 days of Augmentin. Now presents with worsening local area with drainage and odor increased yesterday. Currently no IV or ertapenem Being followed by Dr. Ledesma.-Debridement postponed for now. Wound VAC removed topical Santyl Plan for PICC line and home antibiotics -Acute non-Q wave [place]. Troponin peaked at 11.5 IV heparin. April 29: Cardiac catheterization by Dr. Madrid. Stent to RCA. Lesion to LAD to be further evaluated. -Acute kidney injury likely contrast-induced nephropathy. Patient has had a chest CT, to cardiac catheterization.: Some improvement Creatinine was running at 1.0. Peaked 2.6. Entresto and Aldactone discontinued. Did get IV fluids Nephrology is following -Severe triple-vessel coronary artery disease per cardiac catheterization Seen by cardiothoracic team.-Currently not for any intervention Stent to RCA on April 29 -IV heparin monitoring-discontinued Follow PTT -Severe peripheral arterial disease As per CT angiogram. Aspirin, Plavix Lipitor 40 mg nightly -Diabetes type 2 insulin-dependent uncontrolled A1c level 9.6 Levemir, Humulin R. Accu-Cheks with sliding scale insulin -Iron deficiency anemia -Coronary disease with history of stent placement Plavix- Aspirin-. Lipitor -Essential hypertension Lopressor 50 mg twice daily. 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 6 Weight loss measures -Anxiety -Full code Encourage oral intake. Follow renal function. Other medications to continue. Discussed. Past Medical History Past Medical History: Asthma, Blood Disorder, Coronary Artery Disease (CAD), Diabetes Mellitus, Eye Disorder, GERD/Reflux, Hyperlipidemia, Hypertension, Myocardial Infarction ([place]), Pneumonia, Skin Disorder, Vascular Disorder Additional Past Medical History / Comment(s): Type II diabetic IDDM. retinitis pigmentosa (losing peripheral vision), Hx of cellulitis lt foot March 03, 2024. Circulation issues to lt leg-recent February 2024. IBD. Recent hospitalization @[facility] February-pt states she was anemic. States Hgb at discharge was 8.4. Pt states she had re-draw last week @[facility] out pt lab and it was Hgb was 9.6. She states she was put on Multivitamin. Last Myocardial Infarction Date:: 05/2015 History of Any Multi-Drug Resistant Organisms: None Reported Past Surgical History: Heart Catheterization, Heart Catheterization With Stent Additional Past Surgical History / Comment(s): boil under armpit (2000) Cardiac stent x3. Stent to lt leg March 07, 2024. Past Anesthesia/Blood Transfusion Reactions: No Reported Reaction Additional Past Anesthesia/Blood Transfusion Reaction / Comment(s): No hx of blood transfusion. Date of Last Stent Placement:: 05/30/2015 Past Psychological History: Anxiety Smoking Status: Former smoker Past Alcohol Use History: None Reported Past Drug Use History: None Reported
[2024-05-01 16:32] LABS: Glucose,Whole Blood 157 mg/dL (70-110)
--- NOTE | 2024-05-01 16:47 | P.PN ---
Subjective Progress Note Date: 05/01/24 Principal diagnosis: Left diabetic foot ulcer/for surgical infection Patient is a 58-year-old female with a past medical history significant for diabetes mellitus hypertension hyperlipidemia SC recently admitted to hospital with back left fifth toe gangrene diabetic foot infection in this patient who is status post left fifth toe amputation on 03/29/2024, presenting back to the hospital worsening wound to the left fifth toe amputation site with some discoloration.Patient is status post PTCA and stent of the long segment mid right coronary artery completed on 04/29/2024 On today's evaluation that is 05/01/2024,the patient denies any fever or any chills, patient is breathing comfortably on room air, the patient denies chest pain shortness of breath and no significant cough, patient denies abdominal pain, no nausea vomiting or diarrhea. Denies any worsening pain to the left foot area. Patient grade is 1.58 Objective - Vital Signs Vital signs: Vital Signs Temp 97.8 F 05/01/24 08:00 Pulse 77 05/01/24 12:00 Resp 18 05/01/24 12:00 BP 153/84 05/01/24 12:00 Pulse Ox 95 05/01/24 12:00 FiO2 Intake & Output 04/30/24 05/01/24 05/01/24 18:59 06:59 18:59 Intake Total 1240 Output Total 1700 600 Balance 1240 -1700 -600 Weight 89.9 kg Intake: IV 220 Invasive Line 4 20 Sodium Chloride 0.9% 1, 200 000 ml @ 75 mls/hr IV . [id number] [facility] Rx#:[id number] Oral 1020 Output: Urine 1700 600 Other: Voiding Method Bedside Commode Bedside Commode # Voids 1 1 # Bowel Movements 1 1 - Exam GENERAL DESCRIPTION: Middle-aged female lying in bed in no distress RESPIRATORY SYSTEM: Unlabored breathing , decreased breath sounds at bases HEART: S1 S2 regular rate and rhythm , ABDOMEN: Soft , no tenderness EXTREMITIES: Left foot lateral border wound still have significant amount of slough tissue and some foul-smelling drainage - Labs CBC & Chem 7: 04/30/24 11:40 05/01/24 12:00 Labs: Abnormal Lab Results - Last 24 Hours (Table) 04/30/24 05/01/24 05/01/24 Range/Units 20:09 06:06 11:43 Sodium (137-145) mmol/L BUN (7-17) mg/dL Creatinine (0.52-1.04) mg/dL Glucose (74-99) mg/dL POC Glucose (mg/dL) 270 H 146 H 291 H (70-110) mg/dL Calcium (8.4-10.2) mg/dL 05/01/24 05/01/24 Range/Units 12:00 16:30 Sodium 135 L (137-145) mmol/L BUN 41 H (7-17) mg/dL Creatinine 1.58 H (0.52-1.04) mg/dL Glucose 253 H (74-99) mg/dL POC Glucose (mg/dL) 157 H (70-110) mg/dL Calcium 8.3 L (8.4-10.2) mg/dL Assessment and Plan (1) Left foot infection Current Visit: Yes Status: Acute Code(s): L08.9 - LOCAL INFECTION OF THE SKIN AND SUBCUTANEOUS TISSUE, UNSP SNOMED Code(s): 233272565 (2) Allergy to multiple antibiotics Current Visit: No Status: Acute Code(s): Z88.1 - ALLERGY STATUS TO OTHER ANTIBIOTIC AGENTS SNOMED Code(s): 032683418 (3) Cellulitis of left foot Current Visit: No Status: Acute Code(s): L03.116 - CELLULITIS OF LEFT LOWER LIMB SNOMED Code(s): 59971983357280990 Plan: 1patient with a left fifth toe diabetic foot wound and this patient was status post amputation of the left fifth toe now with evidence of nonhealing wound to the left fifth amputation site and some gangrene failing outpatient oral Augmentin therapy we will need to cover for resistant gram-positive as well as gram-negative pathogen. 2patient has been evaluated by vascular surgery and planning for debridement of the wound, surgery has been postponed patient did have a cardiac cath and this plan is status post PTCA and stenting of the right coronary artery completed on 04/29/2024 3patient local culture currently growing ESBL E. coli as well as anaerobes 4- patient is afebrile to continue with the Invanz will benefit from surgical debridement vascular surgery on the case Dictation was produced using [employer] dictation software. please excuse any grammatical, word or spelling errors. Time with Patient: Less than 30
[2024-05-01 19:58] LABS: Glucose,Whole Blood 263 mg/dL (70-110)
[2024-05-01] MEDS: ALPRAZolam 0.25 MG TAB PO PRN (20:20)
[2024-05-01] MEDS ORDERED: SACUBITRIL/VALSARTAN 24 MG-26 MG TABLET PO SCH (21:00)
[2024-05-02 05:41] LABS: Glucose,Whole Blood 166 mg/dL (70-110)
[2024-05-02 08:45] LABS: African American GFR (CKD) 48 (>60 ml/min/1.73 sqM); Anion Gap 4 mmol/L; Blood Urea Nitrogen 36 mg/dL (7-17); Calcium 8.6 mg/dL (8.4-10.2); Carbon Dioxide 28 mmol/L (22-30); Chloride 104 mmol/L (98-107); Glucose 175 mg/dL (74-99); Non-African American GFR(CKD) 41 (>60 ml/min/1.73 sqM); Potassium 5.1 mmol/L (3.5-5.1); Sodium 136 mmol/L (137-145)
[2024-05-02 11:51] LABS: Glucose,Whole Blood 154 mg/dL (70-110)
[2024-05-02] MEDS: DAPAGLIFLOZIN PROPANEDIOL 10 MG TABLET PO SCH (12:26)
--- NOTE | 2024-05-02 13:08 | P.PN ---
Subjective Progress Note Date: 05/02/24 HISTORY OF PRESENTING ILLNESS This is a pleasant 58-year-old with past medical history significant for hyp ertension, hyperlipidemia, CAD with prior PCI of the RCA and circumflex, diabetes mellitus type 2 and PAD and nonhealing ulcer. She follows in the office with Dr Donahue. She does have PAD and had recent lower extremity stenting in the setting of nonhealing ulcer. She presented 04/20 secondary to increased left foot pain and infection with possible osteomyelitis. She was scheduled for debridement 04/24 however upon induction of anesthesia patient had hypoxic episode and asystole requiring CPR. This was felt related to bronchospasm and during the time of intubation per anesthesia. She had return of spontaneous circulation and has been off of any vasopressors. She was extubated and surgery was not performed. Currently she denies any chest pain other than where her chest compressions were performed. Troponins elevated 3.2, 11.5. EKG showing normal sinus rhythm, poor R-wave progression, diffuse mild ST depressions in the lateral leads. She has had prior stress test from 2020 with abnormal anterior ischemia and plan was to repeat stress testing at some point in cardiology office. 04/27 She underwent left heart catheterization 04/26/2024 which revealed triple-vessel CAD with severe stenosis of the RCA and LAD. She was referred for evaluation by CV surgery and deemed to be at higher risk due to foot infection. Hemoglobin 7.6, creatinine 1.25, potassium 3.9. She denies any chest pain or pressure. Shortness of breath is stable. 04/28 Patient sitting up edge of bed. She denies any chest pain or pressure. Shortness of breath is okay. Hemoglobin 8.4 this morning. 04/30 Yesterday, patient underwent PTCA with Dr. Madrid, stenting of the mid RCA. Illnesses or yesterday afternoon after cardiac catheterization, patient did have some bradycardia in the 40s for which atropine 0.5 mg x 2 doses were given. Last evening, patient received beta-jasmyne and she had decrease in her heart rate again and a pause of 4.9 seconds. We will discontinue beta-jasmyne today. atient noted to have a 4.9-second pause yesterday evening. Yesterday afternoon after cath 05/01 Patient has had no further episodes of pauses. Heart rate has improved and running in the 70s. She denies having any chest pain or pressure and no shortness of breath. She states she is urinating a lot. Blood pressure 166/85, heart rate 69, pulse ox 98% on room air. Yesterday, patient was started on Farxiga, Entresto and Aldactone. Beta-jasmyne was held because of bradycardia and sinus pauses. Patient is concerned that she has been on metoprolol for many many years. We will resume at a lower dose and monitor. 05/02 Patient was resumed yesterday back on low-dose Toprol XL. Her heart rates have been running in the 50s to 70s. Blood pressure is 115/69 and pulse ox 95% on room air. Repeat blood work reveals sodium 136, potassium 5.1, BUN 36 creatinine 1.39. PHYSICAL EXAMINATION Vital signs reviewed. CONSTITUTIONAL: No apparent distress. HEENT: Head is normocephalic. Pupils are equal, round. Sclerae anicteric. Mucous membranes of the mouth are moist. No JVD. No carotid bruit. CHEST EXAMINATION: Lungs are clear to auscultation. No chest wall tenderness is noted on palpation or with deep breathing. HEART EXAMINATION: Regular rate and rhythm. S1, S2 heard. No murmurs, gallops or rub. ABDOMEN: Soft, nontender. EXTREMITIES: no lower extremity edema and no calf tenderness. +LLE nonhealing ulcer. NEUROLOGIC EXAMINATION: Patient is awake, alert and oriented x3. ASSESSMENT Cardiac arrest, possible hypoxic related however significant non-STEMI Non-STEMI, triple-vessel disease with severe stenosis of RCA and LAD on the left heart catheterization status post stenting of the mid RCA Ischemic cardiomyopathy, EF 35 to 40%, new diagnosis Left foot gangrene with prior left fifth toe amputation 03/28 Diabetic ulcer left foot, present on admission Atypical chest pain related to CPR PAD with prior left lower extremity intervention CAD with prior history of PCI of circumflex and RCA Diabetes mellitus type 2 Anemia Hypertension Hyperlipidemia History of asthma Bradycardia with sinus pause 4.9-seconds Acute kidney injury PLAN Continue the following medications: Aspirin 81 mg daily, atorvastatin 80 mg at bedtime, Plavix 75 mg daily Resume Farxiga 10 mg daily today Entresto 24-26 mg twice daily, Aldactone 25 mg daily--discontinued by nephrology Continue patient on Toprol XL 12.5 mg daily Continue telemetry monitoring Further recommendations as patient progresses. Nurse practitioner note has been reviewed, I agree with documented findings and plan of care. Patient was seen and examined. Objective - Vital Signs Vital signs: Vital Signs Temp 98.3 F 05/02/24 03:13 Pulse 58 L 05/02/24 03:13 Resp 16 05/02/24 03:13 BP 115/69 05/02/24 03:13 Pulse Ox 95 05/02/24 03:13 FiO2 Intake & Output 05/01/24 05/02/24 05/02/24 18:59 06:59 18:59 Intake Total 118 Output Total 1200 1650 Balance -1082 -1650 Weight 88.2 kg Intake: Oral 118 Output: Urine 1200 1650 Other: Voiding Method Toilet Bedside Commode # Voids 1 3 # Bowel Movements 1 - Labs CBC & Chem 7: 04/30/24 11:40 05/02/24 08:02 Labs: Abnormal Lab Results - Last 24 Hours (Table) 05/01/24 05/01/24 05/01/24 Range/Units 11:43 12:00 16:30 Sodium 135 L (137-145) mmol/L BUN 41 H (7-17) mg/dL Creatinine 1.58 H (0.52-1.04) mg/dL Glucose 253 H (74-99) mg/dL POC Glucose (mg/dL) 291 H 157 H (70-110) mg/dL Calcium 8.3 L (8.4-10.2) mg/dL 05/01/24 05/02/24 05/02/24 Range/Units 19:57 05:40 08:02 Sodium 136 L (137-145) mmol/L BUN 36 H (7-17) mg/dL Creatinine 1.39 H (0.52-1.04) mg/dL Glucose 175 H (74-99) mg/dL POC Glucose (mg/dL) 263 H 166 H (70-110) mg/dL Calcium (8.4-10.2) mg/dL
--- NOTE | 2024-05-02 13:35 | P.PN ---
Subjective Progress Note Date: 05/02/24 Patient seen in follow-up for acute kidney injury. Feeling well and no new complaints. Vital signs are stable. General: No acute distress. HEENT: Head exam is unremarkable. LUNGS: No audible rhonchi or wheezes. HEART: Rate and Rhythm are regular. ABDOMEN: Nontender. EXTREMITITES: No drainage. 1+ edema. Objective - Vital Signs Vital signs: Vital Signs Temp 98.0 F 05/02/24 08:00 Pulse 73 05/02/24 08:00 Resp 16 05/02/24 08:00 BP 173/78 05/02/24 08:00 Pulse Ox 98 05/02/24 08:00 FiO2 Intake & Output 05/01/24 05/02/24 05/02/24 18:59 06:59 18:59 Intake Total 118 118 Output Total 1200 1650 Balance -1082 -1650 118 Weight 88.2 kg Intake: Oral 118 118 Output: Urine 1200 1650 Other: Voiding Method Toilet Bedside Commode # Voids 1 3 # Bowel Movements 1 - Labs CBC & Chem 7: 04/30/24 11:40 05/02/24 08:02 Labs: Abnormal Lab Results - Last 24 Hours (Table) 05/01/24 05/01/24 05/01/24 Range/Units 12:00 16:30 19:57 Sodium 135 L (137-145) mmol/L BUN 41 H (7-17) mg/dL Creatinine 1.58 H (0.52-1.04) mg/dL Glucose 253 H (74-99) mg/dL POC Glucose (mg/dL) 157 H 263 H (70-110) mg/dL Calcium 8.3 L (8.4-10.2) mg/dL 05/02/24 05/02/24 05/02/24 Range/Units 05:40 08:02 11:50 Sodium 136 L (137-145) mmol/L BUN 36 H (7-17) mg/dL Creatinine 1.39 H (0.52-1.04) mg/dL Glucose 175 H (74-99) mg/dL POC Glucose (mg/dL) 166 H 154 H (70-110) mg/dL Calcium (8.4-10.2) mg/dL Assessment and Plan Assessment: 1. Acute kidney injury secondary to ATN secondary to IV contrast exposure on April 26 and April 29, 2024, cardiac arrest, further worsen with the use of RUKHSANA inhibitor, diuretics and SGLT2 inhibitor. Baseline creatinine near 1.0. Peaked 2.6, now 1.4 today. Renal US no hydronephrosis. 2. Left fifth toe infection status post amputation on antibiotics. 3. Status post PEA arrest. 4. Coronary disease status post cardiac stents with most recent stent placed to the RCA on April 29, 2024. 5. Diabetes mellitus. 6. Benign hypertension. 7. Mild lower extremity edema. Plan: Hep-Lock IV fluids. Farxiga resumed, if creatinine continues to improve can restart Entresto and Aldactone tomorrow. Amlodipine 5 mg once daily. Encouraged oral intake.
--- NOTE | 2024-05-02 15:56 | P.PN ---
Subjective Progress Note Date: 05/02/24 Principal diagnosis: Left diabetic foot ulcer/for surgical infection Patient is a 58-year-old female with a past medical history significant for diabetes mellitus hypertension hyperlipidemia [place] recently admitted to hospital with back left fifth toe gangrene diabetic foot infection in this patient who is status post left fifth toe amputation on 03/29/2024, presenting back to the hospital worsening wound to the left fifth toe amputation site with some discoloration.Patient is status post PTCA and stent of the long segment mid right coronary artery completed on 04/29/2024 On today's evaluation that is 05/02/2024,the patient remains to be afebrile, patient is on room air not requiring supplemental oxygen and denies any shortness of breath no chest pain or cough.Patient denies having any nausea or vomiting, no abdominal pain and no diarrhea has been reported, he denies any worsening pain to the left foot. Patient currently is down to 1.39 blood culture has been negative Objective - Vital Signs Vital signs: Vital Signs Temp 98.0 F 05/02/24 08:00 Pulse 72 05/02/24 12:00 Resp 16 05/02/24 12:00 BP 130/60 05/02/24 12:00 Pulse Ox 98 05/02/24 12:00 FiO2 Intake & Output 05/01/24 05/02/24 05/02/24 18:59 06:59 18:59 Intake Total 118 236 Output Total 1200 1650 Balance -1082 -1650 236 Weight 88.2 kg Intake: Oral 118 236 Output: Urine 1200 1650 Other: Voiding Method Toilet Bedside Commode # Voids 1 3 # Bowel Movements 1 - Exam GENERAL DESCRIPTION: Middle-aged female lying in bed in no distress RESPIRATORY SYSTEM: Unlabored breathing , decreased breath sounds at bases HEART: S1 S2 regular rate and rhythm , ABDOMEN: Soft , no tenderness EXTREMITIES: Left foot lateral border wound currently dressed - Labs CBC & Chem 7: 04/30/24 11:40 05/02/24 08:02 Labs: Abnormal Lab Results - Last 24 Hours (Table) 05/01/24 05/01/24 05/02/24 Range/Units 16:30 19:57 05:40 Sodium (137-145) mmol/L BUN (7-17) mg/dL Creatinine (0.52-1.04) mg/dL Glucose (74-99) mg/dL POC Glucose (mg/dL) 157 H 263 H 166 H (70-110) mg/dL 05/02/24 05/02/24 Range/Units 08:02 11:50 Sodium 136 L (137-145) mmol/L BUN 36 H (7-17) mg/dL Creatinine 1.39 H (0.52-1.04) mg/dL Glucose 175 H (74-99) mg/dL POC Glucose (mg/dL) 154 H (70-110) mg/dL Assessment and Plan (1) Left foot infection Current Visit: Yes Status: Acute Code(s): L08.9 - LOCAL INFECTION OF THE SKIN AND SUBCUTANEOUS TISSUE, UNSP SNOMED Code(s): 983446427 (2) Allergy to multiple antibiotics Current Visit: No Status: Acute Code(s): Z88.1 - ALLERGY STATUS TO OTHER ANTIBIOTIC AGENTS SNOMED Code(s): 767658254 (3) Cellulitis of left foot Current Visit: No Status: Acute Code(s): L03.116 - CELLULITIS OF LEFT LOWER LIMB SNOMED Code(s): 17439186123716984 Plan: 1patient with a left fifth toe diabetic foot wound and this patient was status post amputation of the left fifth toe now with evidence of nonhealing wound to the left fifth amputation site and some gangrene failing outpatient oral Augmentin therapy we will need to cover for resistant gram-positive as well as gram-negative pathogen. 2patient has been evaluated by vascular surgery and planning for debridement of the wound, surgery has been postponed patient did have a cardiac cath and this plan is status post PTCA and stenting of the right coronary artery completed on 04/29/2024 3patient local culture currently growing ESBL E. coli as well as anaerobes 4- patient will benefit from surgical debridement vascular surgery on the case this was discussed with admitting physician continue Invanz get a PICC line for outpatient IV antibiotics Dictation was produced using [employer] dictation software. please excuse any grammatical, word or spelling errors. Time with Patient: Less than 30
[2024-05-02 16:42] LABS: Glucose,Whole Blood 194 mg/dL (70-110)
--- NOTE | 2024-05-02 19:55 | P.PN ---
Progress Note - Text Progress Note Date: 05/02/24 Chief Complaint: Left foot infection Patient is a 58-year-old female with known history of coronary disease status post stent placement, diabetes type 2 insulin-dependent, hypertension, asthma and history of retinitis pigmentosa, anxiety 03/05/2024: CT angiogram of the abdomen aorta with runoff showed heavily calcified bilateral lower extremity arterial vasculature involving the superficial femoral arteries and extending inferiorly to the popliteal artery to the feet is limited due to severe atherosclerotic plaque. Patient was discharged from the hospital on March [address] Ledesma. Left toe was felt will probably demarcate. With gangrene. March 28: Left fifth toe ray amputation carried out by Dr. Ledesma. Patient did not return to the office outpatient to see Dr. Ledesma on April 08. There was some odor from the amputation site. Was given 10-day course of Augmentin. Patient now presents with increasing drainage and highly sensitive area of the left foot. No fever no chills. Appetite not too good. Has been using a walker April 22: Sitting at the edge of bed. Seen earlier by Dr. Haines from vascular. Plan for local debridement and deep tissue culture on April 24. Also seen by ID. Patient IV cefepime and vancomycin. And Flagyl. Eating 100% April 23: Resting in bed. Pending debridement of wound tomorrow. Getting IV cefepime IV vancomycin. Wound culture growing E. coli. April 24: Saw the patient this morning. Resting bed. Pending debridement. On antibiotics. NPO. IV this afternoon I got a call from Dr. Ledesma vascular surgery. Patient had respiratory compromise had to be intubated. Moved to the ICU. April 25: Patient in the ICU. Yesterday when patient is given anesthesia patient had a cardiac arrest. Had to be intubated. Was shortly extubated t after. Debridement was postponed. Patient's troponin became positive. Peaked at 11.5. He is planning for a cardiac catheterization. Patient initially refused antibiotics feeling is causing her bloating. I did explain to the patient that several of the reasons for the same. Has agreed to take antibiotics. On IV heparin EKG showed ST depression and some T wave changes April 26: Underwent cardiac catheterization by Dr. Andrea Donahue this morning. It showed: Long segment of severe stenosis 80 to 90% RCA. Circumflex 30%. LAD is diffusely diseased subtotally occluded in its midportion. Severe stenosis within the stent. Cardiology decided to do a stent to be done on Monday. Also seen by the cardiothoracic team. No intervention at the present time. Left foot wound has a wound VAC in place. Currently no plans for surgical debridement. Santyl is going to be placed and probably wound VAC removed. Discussed with patient April 27: Patient due for catheterization with stent on Monday. Getting IV heparin. Some throat discomfort from intubation. Oral intake fair. IV antibiotics April 28: Stable. Sitting at the edge edge of the bed. IV heparin. No chest pain or short of breath. Tolerating diet. Discussed. On IV or ertapenem. April 29: Patient underwent a cardiac catheterization by Dr. Madrid. Stent was placed to the RCA. Further evaluation with possible stress testing will be done for the LAD lesion. Patient resting in bed. No chest pain or shortness of breath. April 30: No chest pain. Lisinopril has been held. PICC line planned per ID. Also been started on Farxiga. Creatinine bumped to 2.61. Discussed with Dr. Woo. Will hold off Entresto and Aldactone for now. Will do strict I's and O's. Consult nephrology. Suspect contrast-induced nephropathy. May 01: Comfortable. Creatinine improved to 1.58 today. Making good urine. Being followed by nephrology. Farxiga was discontinued. IV fluids discontinued by nephrology. Amlodipine was added. Discussed with patient. Follow May 02: Comfortable. No chest pain. Creatinine down to 1.39. Pending PICC line for outpatient antibiotics. Discussed with patient. Farxiga added by cardiology Active Medications Acetaminophen (Acetaminophen Tab 325 Mg Tab) 650 mg PO Q6HR PRN PRN Reason: Mild Pain or Fever > 100.5 Last Admin: 05/01/24 09:19 Dose: 325 mg Al Hydroxide/Mg Hydroxide (Mag Hydrox/Al Hydrox/Simeth 30 Ml Cup) 30 ml PO Q4HR PRN PRN Reason: Heartburn Last Admin: 05/01/24 20:48 Dose: 30 ml Albuterol Sulfate (Albuterol Hfa Inhaler) 2 puff INHALATION RT-Q6H PRN PRN Reason: Shortness Of Breath Alprazolam (Alprazolam 0.25 Mg Tab) 0.25 mg PO Q6HR PRN PRN Reason: Mild Anxiety Last Admin: 05/01/24 20:20 Dose: 0.25 mg Alprazolam (Alprazolam 0.5 Mg Tab) 0.5 mg PO Q6HR PRN PRN Reason: Moderate Anxiety Amlodipine Besylate (Amlodipine 5 Mg Tab) 5 mg PO DAILY [facility] Last Admin: 05/02/24 08:51 Dose: 5 mg Aspirin (Aspirin 81 Mg) 81 mg PO DAILY [facility] Last Admin: 05/02/24 08:51 Dose: 81 mg Atorvastatin Calcium (Atorvastatin 80 Mg Tab) 80 mg PO HS [facility] Last Admin: 05/01/24 19:56 Dose: Not Given Calcium Carbonate/Glycine (Calcium Carbonate 500 Mg Chewable) 1,000 mg PO Q4HR PRN PRN Reason: Dyspepsia Last Admin: 04/24/24 09:14 Dose: 1,000 mg Clopidogrel Bisulfate (Clopidogrel 75 Mg Tab) 75 mg PO DAILY [facility] Last Admin: 05/02/24 08:51 Dose: 75 mg Collagenase (Collagenase 250 Unit/Gm Ointment 30 Gm Tube) 1 applic TOPICAL DAILY [facility]; Protocol Last Admin: 05/02/24 08:52 Dose: 1 applic Dapagliflozin (Dapagliflozin Propanediol 10 Mg Tablet) 10 mg PO DAILY [facility] Last Admin: 05/02/24 12:26 Dose: 10 mg Famotidine (Famotidine 20 Mg Tab) 20 mg PO DAILY [facility] Last Admin: 05/02/24 08:51 Dose: 20 mg Gabapentin (Gabapentin 100 Mg Cap) 100 mg PO TID [facility] Last Admin: 05/02/24 17:21 Dose: 100 mg Hydromorphone HCl (Hydromorphone 0.5 Mg/0.5 Ml Syringe) 0.5 mg IVP Q3HR PRN PRN Reason: Moderate Pain (Scale 4 to 6) Last Admin: 04/24/24 21:18 Dose: 0.5 mg Hydromorphone HCl (Hydromorphone 1 Mg/Ml 1 Ml Syringe) 1 mg IVP Q3HR PRN PRN Reason: Severe Pain (Scale 7 to 10) Ertapenem 1 gm/ Sodium (Chloride) 50 mls @ 100 mls/hr IVPB DAILY [facility]; Protocol Insulin Aspart (Insulin Aspart (Novolog) 100 Unit/Ml Vial) 0 unit SQ ACHS [facility]; Protocol Last Admin: 05/02/24 17:22 Dose: 3 unit Insulin Detemir (Insulin Detemir (Levemir) 100 Unit/Ml Syr) 30 unit SQ HS [facility] Last Admin: 05/01/24 20:45 Dose: 30 unit Insulin Human Regular (Insulin Regular 100 Unit/Ml Vial (Iv)) 30 unit SQ BID [facility] Last Admin: 05/02/24 08:52 Dose: Not Given Lactulose (Lactulose 20 Gm/30 Ml Cup) 20 gm PO DAILY PRN PRN Reason: Constipation Last Admin: 04/28/24 08:25 Dose: 20 gm Lorazepam (Lorazepam 0.5 Mg Tab) 0.5 mg PO Q6HR PRN PRN Reason: Anxiety Last Admin: 04/25/24 03:31 Dose: 0.5 mg Melatonin (Melatonin 3 Mg Tablet) 3 mg PO HS PRN PRN Reason: Insomnia Metoprolol Succinate (Metoprolol Succinate (Er) 25 Mg Tab.Er.24h) 12.5 mg PO DAILY [facility] Last Admin: 05/02/24 08:51 Dose: 12.5 mg Naloxone HCl (Naloxone 0.4 Mg/Ml 1 Ml Vial) 0.2 mg IV Q2M PRN PRN Reason: Opioid Reversal Nitroglycerin (Nitroglycerin Sl Tabs 0.4 Mg Tab) 0.4 mg SUBLINGUAL Q5M PRN PRN Reason: Chest Pain Ondansetron HCl (Ondansetron 4 Mg/2 Ml Vial) 4 mg IVP Q8HR PRN PRN Reason: Nausea And Vomiting Last Admin: 04/29/24 11:43 Dose: 4 mg Zolpidem Tartrate (Zolpidem 5 Mg Tab) 5 mg PO HS PRN PRN Reason: Insomnia Social history: Lives alone. No alcohol. Patient smoked 1 pack a day from 1983. On examination: VITAL SIGNS: 98, 78, 18, 157 x 70, 97% room air GENERAL APPEARANCE: Sitting in bed, comfortable HEENT: Normal external appearance of nose and ear. Oral cavity normal EYES: Pupils equal. Conjunctiva normal. NECK: JVD not raised. Mass not palpable. RESPIRATORY: Respiratory effort normal. Lungs clear to auscultation. CARDIOVASCULAR: First and second sounds normal. No edema. ABDOMEN: Soft. Liver and spleen not palpable. No tenderness. No mass palpable. PSYCHIATRY: Alert and oriented x3. Mood and affect normal. EXTREMITIES: Left foot in a dressing INVESTIGATIONS, reviewed in the clinical context: May 02: Sodium 136 potassium 5.1 BUN 36 creatinine 1.39 May 01: Sodium 135 potassium 5 BUN 41 creatinine 1.58 April 30: White count 9.8 hemoglobin 7.8 potassium 4.7 BUN 46 creatinine 2.61 April 29: White count 10.8 hemoglobin 9.2 potassium 4.3 creatinine 1.05 April 28: White count 10.9 hemoglobin 8.4 iron 20 TIBC 272% saturation 7.35 Troponin I-3.2, 11.5 April 21: White count 10.2 hemoglobin 8.8 platelets 404 April 20: Sodium 132 potassium 5.3 BUN 26 creatinine 1.0 Previous testing Hemoglobin 8.[address]ogram: [February 2022] heavily calcified bilateral lower extremity arterial vasculature involving the superficial femoral arteries. Extending inferiorly. Extending into the femoral artery then is limited due to severe atherosclerotic plaque. Multiple areas of high-grade stenosis. Assessment and plan: -Acute left fifth toe dry gangrene and diabetic foot infection, secondary to diabetes and PAD, leading to left fifth toe amputation ray on March [address] Ledesma Return to see Dr. Ledesma in the office on April 08 with some drainage and being to have an order follow-up. Discharged on 10 days of Augmentin. Now presents with worsening local area with drainage and odor increased yesterday. Currently no IV or ertapenem Being followed by Dr. Ledesma.-Debridement postponed for now. Wound VAC removed topical Santyl Plan for PICC line and home antibiotics -Acute non-Q wave MD. Troponin peaked at 11.5 IV heparin. April 29: Cardiac catheterization by Dr. Madrid. Stent to RCA. Lesion to LAD to be further evaluated. -Acute kidney injury likely contrast-induced nephropathy. Patient has had a chest CT, to cardiac catheterization.: Some improvement Creatinine was running at 1.0. Peaked 2.6. Entresto and Aldactone discontinued. Did get IV fluids Nephrology is following -Severe triple-vessel coronary artery disease per cardiac catheterization Seen by cardiothoracic team.-Currently not for any intervention Stent to RCA on April 29 -IV heparin monitoring-discontinued Follow PTT -Severe peripheral arterial disease As per CT angiogram. Aspirin, Plavix Lipitor 40 mg nightly -Diabetes type 2 insulin-dependent uncontrolled A1c level 9.6 Levemir, Humulin R. Accu-Cheks with sliding scale insulin -Iron deficiency anemia -Coronary disease with history of stent placement Plavix- Aspirin-. Lipitor -Essential hypertension Lopressor 50 mg twice daily. 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 6 Weight loss measures -Anxiety -Full code Farxiga added by cardiology. Discussed. Follow labs Past Medical History Past Medical History: Asthma, Blood Disorder, Coronary Artery Disease (CAD), Diabetes Mellitus, Eye Disorder, GERD/Reflux, Hyperlipidemia, Hypertension, Myocardial Infarction (MD), Pneumonia, Skin Disorder, Vascular Disorder Additional Past Medical History / Comment(s): Type II diabetic IDDM. retinitis pigmentosa (losing peripheral vision), Hx of cellulitis lt foot March 03, 2024. Circulation issues to lt leg-recent February 2024. IBD. Recent hospitalization @[facility] February-pt states she was anemic. States Hgb at discharge was 8.4. Pt states she had re-draw last week @[facility] out pt lab and it was Hgb was 9.6. She states she was put on Multivitamin. Last Myocardial Infarction Date:: 05/2015 History of Any Multi-Drug Resistant Organisms: None Reported Past Surgical History: Heart Catheterization, Heart Catheterization With Stent Additional Past Surgical History / Comment(s): boil under armpit (2000) Cardiac stent x3. Stent to lt leg March 07, 2024. Past Anesthesia/Blood Transfusion Reactions: No Reported Reaction Additional Past Anesthesia/Blood Transfusion Reaction / Comment(s): No hx of blood transfusion. Date of Last Stent Placement:: 05/30/2015 Past Psychological History: Anxiety Smoking Status: Former smoker Past Alcohol Use History: None Reported Past Drug Use History: None Reported
[2024-05-02 20:05] LABS: Glucose,Whole Blood 221 mg/dL (70-110)
[2024-05-03 06:23] LABS: Glucose,Whole Blood 102 mg/dL (70-110)
[2024-05-03 09:00] LABS: African American GFR (CKD) 57 (>60 ml/min/1.73 sqM); Anion Gap 8 mmol/L; Blood Urea Nitrogen 32 mg/dL (7-17); Calcium 8.6 mg/dL (8.4-10.2); Carbon Dioxide 23 mmol/L (22-30); Chloride 106 mmol/L (98-107); Glucose 79 mg/dL (74-99); Non-African American GFR(CKD) 49 (>60 ml/min/1.73 sqM); Potassium 5.3 mmol/L (3.5-5.1); Sodium 137 mmol/L (137-145)
--- NOTE | 2024-05-03 10:24 | P.PN ---
Subjective Progress Note Date: 05/03/24 Principal diagnosis: left foot wound We were asked to re-evaluate. She is a 58 year old female with history of left 5th toe amputation with wound, gangrene who went into PEA prior to debridement recently and underwent two cardiac stents. She states still having pain at the wound site and wants to have something definitively done prior to being discharged home. She denies any fevers, chills, chest pain or shortness of breath. Objective - Vital Signs Vital signs: Vital Signs Temp 97.9 F 05/02/24 20:00 Pulse 71 05/03/24 04:00 Resp 18 05/03/24 04:00 BP 137/62 05/03/24 04:00 Pulse Ox 97 05/03/24 04:00 FiO2 Intake & Output 05/02/24 05/03/24 05/03/24 18:59 06:59 18:59 Intake Total 236 360 Output Total 950 Balance 236 -950 360 Weight 86.5 kg Intake: Oral 236 360 Output: Urine 950 Other: Voiding Method Toilet Bedside Commode # Voids 2 - Exam non palpable dp or pt pulses bilaterally. capillary refill slowed bilaterally. +tenderness at the 5th toe amputation wound site. - Constitutional General appearance: Present: cooperative, mild distress - EENT Eyes: Present: PERRLA - Respiratory Respiratory: bilateral: CTA - Cardiovascular Rhythm: regular - Neurologic Neurologic: Present: CNII-XII intact - Psychiatric Psychiatric: Present: A&O x's 3, appropriate affect - Labs CBC & Chem 7: 04/30/24 11:40 05/03/24 07:08 Labs: Abnormal Lab Results - Last 24 Hours (Table) 05/02/24 05/02/24 05/02/24 Range/Units 11:50 16:41 20:04 Potassium (3.5-5.1) mmol/L BUN (7-17) mg/dL Creatinine (0.52-1.04) mg/dL POC Glucose (mg/dL) 154 H 194 H 221 H (70-110) mg/dL 05/03/24 Range/Units 07:08 Potassium 5.3 H (3.5-5.1) mmol/L BUN 32 H (7-17) mg/dL Creatinine 1.20 H (0.52-1.04) mg/dL POC Glucose (mg/dL) (70-110) mg/dL Assessment and Plan Assessment: 1. Infected left fifth toe amputation site 2. Left fifth toe amputation 03/28/2024 for gangrene 3. Diabetes mellitus 4. Medication noncompliance, patient is refusing ordered medications during her hospitalization including her insulin in IV antibiotics 5. Hyperglycemia 6. Brief PEA cardiac arrest with CPR initiated, likely secondary to anesthesia induction 7. Coronary artery disease, three-vessel coronary artery disease with severe stenosis involving large dominant right coronary artery and LAD Plan: Continue antibiotics and current wound care Recommend further debridement and may require further amputation in the future if doesn't heal. Will schedule for Monday.
[2024-05-03] MEDS: ERTAPENEM 1 GM in SODIUM CHLORIDE 0.9% 50 ML IVPB SCH (11:43)
[2024-05-03 11:55] LABS: Glucose,Whole Blood 123 mg/dL (70-110)
--- NOTE | 2024-05-03 12:10 | P.PN ---
Progress Note - Text Progress Note Date: 05/03/24 Chief Complaint: Left foot infection Patient is a 58-year-old female with known history of coronary disease status post stent placement, diabetes type 2 insulin-dependent, hypertension, asthma and history of retinitis pigmentosa, anxiety 03/05/2024: CT angiogram of the abdomen aorta with runoff showed heavily calcified bilateral lower extremity arterial vasculature involving the superficial femoral arteries and extending inferiorly to the popliteal artery to the feet is limited due to severe atherosclerotic plaque. Patient was discharged from the hospital on March [address] Ledesma. Left toe was felt will probably demarcate. With gangrene. March 28: Left fifth toe ray amputation carried out by Dr. Ledesma. Patient did not return to the office outpatient to see Dr. Ledemsa on April 08. There was some odor from the amputation site. Was given 10-day course of Augmentin. Patient now presents with increasing drainage and highly sensitive area of the left foot. No fever no chills. Appetite not too good. Has been using a walker April 22: Sitting at the edge of bed. Seen earlier by Dr. Haines from vascular. Plan for local debridement and deep tissue culture on April 24. Also seen by ID. Patient IV cefepime and vancomycin. And Flagyl. Eating 100% April 23: Resting in bed. Pending debridement of wound tomorrow. Getting IV cefepime IV vancomycin. Wound culture growing E. coli. April 24: Saw the patient this morning. Resting bed. Pending debridement. On antibiotics. NPO. IV this afternoon I got a call from Dr. Ledesma vascular surgery. Patient had respiratory compromise had to be intubated. Moved to the ICU. April 25: Patient in the ICU. Yesterday when patient is given anesthesia patient had a cardiac arrest. Had to be intubated. Was shortly extubated t after. Debridement was postponed. Patient's troponin became positive. Peaked at 11.5. He is planning for a cardiac catheterization. Patient initially refused antibiotics feeling is causing her bloating. I did explain to the patient that several of the reasons for the same. Has agreed to take antibiotics. On IV heparin EKG showed ST depression and some T wave changes April 26: Underwent cardiac catheterization by Dr. Andrea Donahue this morning. It showed: Long segment of severe stenosis 80 to 90% RCA. Circumflex 30%. LAD is diffusely diseased subtotally occluded in its midportion. Severe stenosis within the stent. Cardiology decided to do a stent to be done on Monday. Also seen by the cardiothoracic team. No intervention at the present time. Left foot wound has a wound VAC in place. Currently no plans for surgical debridement. Santyl is going to be placed and probably wound VAC removed. Discussed with patient April 27: Patient due for catheterization with stent on Monday. Getting IV heparin. Some throat discomfort from intubation. Oral intake fair. IV antibiotics April 28: Stable. Sitting at the edge edge of the bed. IV heparin. No chest pain or short of breath. Tolerating diet. Discussed. On IV or ertapenem. April 29: Patient underwent a cardiac catheterization by Dr. Madrid. Stent was placed to the RCA. Further evaluation with possible stress testing will be done for the LAD lesion. Patient resting in bed. No chest pain or shortness of breath. April 30: No chest pain. Lisinopril has been held. PICC line planned per ID. Also been started on Farxiga. Creatinine bumped to 2.61. Discussed with Dr. Woo. Will hold off Entresto and Aldactone for now. Will do strict I's and O's. Consult nephrology. Suspect contrast-induced nephropathy. May 01: Comfortable. Creatinine improved to 1.58 today. Making good urine. Being followed by nephrology. Farxiga was discontinued. IV fluids discontinued by nephrology. Amlodipine was added. Discussed with patient. Follow May 02: Comfortable. No chest pain. Creatinine down to 1.39. Pending PICC line for outpatient antibiotics. Discussed with patient. Farxiga added by cardiology May 03: Sitting up. Comfortable. Did get a PICC line. Spoke to Dr. Haines from vascular. He can schedule the patient for debridement on Monday. Patient does not want to leave before that. Will continue with current treatment plan. Active Medications Acetaminophen (Acetaminophen Tab 325 Mg Tab) 650 mg PO Q6HR PRN PRN Reason: Mild Pain or Fever > 100.5 Last Admin: 05/01/24 09:19 Dose: 325 mg Al Hydroxide/Mg Hydroxide (Mag Hydrox/Al Hydrox/Simeth 30 Ml Cup) 30 ml PO Q4HR PRN PRN Reason: Heartburn Last Admin: 05/01/24 20:48 Dose: 30 ml Albuterol Sulfate (Albuterol Hfa Inhaler) 2 puff INHALATION RT-Q6H PRN PRN Reason: Shortness Of Breath Alprazolam (Alprazolam 0.25 Mg Tab) 0.25 mg PO Q6HR PRN PRN Reason: Mild Anxiety Last Admin: 05/02/24 20:23 Dose: 0.25 mg Alprazolam (Alprazolam 0.5 Mg Tab) 0.5 mg PO Q6HR PRN PRN Reason: Moderate Anxiety Amlodipine Besylate (Amlodipine 5 Mg Tab) 5 mg PO DAILY [facility] Last Admin: 05/03/24 09:06 Dose: 5 mg Aspirin (Aspirin 81 Mg) 81 mg PO DAILY [facility] Last Admin: 05/03/24 09:06 Dose: 81 mg Atorvastatin Calcium (Atorvastatin 80 Mg Tab) 80 mg PO HS [facility] Last Admin: 05/02/24 20:14 Dose: Not Given Calcium Carbonate/Glycine (Calcium Carbonate 500 Mg Chewable) 1,000 mg PO Q4HR PRN PRN Reason: Dyspepsia Last Admin: 04/24/24 09:14 Dose: 1,000 mg Clopidogrel Bisulfate (Clopidogrel 75 Mg Tab) 75 mg PO DAILY [facility] Last Admin: 05/03/24 09:06 Dose: 75 mg Collagenase (Collagenase 250 Unit/Gm Ointment 30 Gm Tube) 1 applic TOPICAL DAILY [facility]; Protocol Last Admin: 05/03/24 09:07 Dose: 1 applic Dapagliflozin (Dapagliflozin Propanediol 10 Mg Tablet) 10 mg PO DAILY [facility] Last Admin: 05/03/24 11:43 Dose: 10 mg Famotidine (Famotidine 20 Mg Tab) 20 mg PO DAILY [facility] Last Admin: 05/03/24 09:06 Dose: 20 mg Gabapentin (Gabapentin 100 Mg Cap) 100 mg PO TID [facility] Last Admin: 05/03/24 09:06 Dose: 100 mg Hydromorphone HCl (Hydromorphone 0.5 Mg/0.5 Ml Syringe) 0.5 mg IVP Q3HR PRN PRN Reason: Moderate Pain (Scale 4 to 6) Last Admin: 04/24/24 21:18 Dose: 0.5 mg Hydromorphone HCl (Hydromorphone 1 Mg/Ml 1 Ml Syringe) 1 mg IVP Q3HR PRN PRN Reason: Severe Pain (Scale 7 to 10) Ertapenem 1 gm/ Sodium (Chloride) 50 mls @ 100 mls/hr IVPB DAILY [facility]; Protocol Last Admin: 05/03/24 11:43 Dose: 100 mls/hr Insulin Aspart (Insulin Aspart (Novolog) 100 Unit/Ml Vial) 0 unit SQ ACHS [facility]; Protocol Last Admin: 05/03/24 06:45 Dose: Not Given Insulin Detemir (Insulin Detemir (Levemir) 100 Unit/Ml Syr) 30 unit SQ HS [facility] Last Admin: 05/02/24 20:23 Dose: 30 unit Insulin Human Regular (Insulin Regular 100 Unit/Ml Vial (Iv)) 30 unit SQ BID [facility]CR[facility] Last Admin: 05/03/24 09:06 Dose: 30 unit Lactulose (Lactulose 20 Gm/30 Ml Cup) 20 gm PO DAILY PRN PRN Reason: Constipation Last Admin: 04/28/24 08:25 Dose: 20 gm Lorazepam (Lorazepam 0.5 Mg Tab) 0.5 mg PO Q6HR PRN PRN Reason: Anxiety Last Admin: 04/25/24 03:31 Dose: 0.5 mg Losartan Potassium (Losartan 25 Mg Tab) 12.5 mg PO DAILY [facility] Melatonin (Melatonin 3 Mg Tablet) 3 mg PO HS PRN PRN Reason: Insomnia Metoprolol Succinate (Metoprolol Succinate (Er) 25 Mg Tab.Er.24h) 25 mg PO DAILY [facility] Naloxone HCl (Naloxone 0.4 Mg/Ml 1 Ml Vial) 0.2 mg IV Q2M PRN PRN Reason: Opioid Reversal Nitroglycerin (Nitroglycerin Sl Tabs 0.4 Mg Tab) 0.4 mg SUBLINGUAL Q5M PRN PRN Reason: Chest Pain Ondansetron HCl (Ondansetron 4 Mg/2 Ml Vial) 4 mg IVP Q8HR PRN PRN Reason: Nausea And Vomiting Last Admin: 04/29/24 11:43 Dose: 4 mg Zolpidem Tartrate (Zolpidem 5 Mg Tab) 5 mg PO HS PRN PRN Reason: Insomnia Social history: Lives alone. No alcohol. Patient smoked 1 pack a day from 1983 through 9897. On examination: VITAL SIGNS: 98.4, 76, 16, 155 x 68, 97% room air GENERAL APPEARANCE: Sitting in bed, comfortable HEENT: Normal external appearance of nose and ear. Oral cavity normal EYES: Pupils equal. Conjunctiva normal. NECK: JVD not raised. Mass not palpable. RESPIRATORY: Respiratory effort normal. Lungs clear to auscultation. CARDIOVASCULAR: First and second sounds normal. No edema. ABDOMEN: Soft. Liver and spleen not palpable. No tenderness. No mass palpable. PSYCHIATRY: Alert and oriented x3. Mood and affect normal. EXTREMITIES: Left foot in a dressing INVESTIGATIONS, reviewed in the clinical context: May 03: Potassium 5.3 BUN 32 creatinine 1.2 May 02: Sodium 136 potassium 5.1 BUN 36 creatinine 1.39 May 01: Sodium 135 potassium 5 BUN 41 creatinine 1.58 April 30: White count 9.8 hemoglobin 7.8 potassium 4.7 BUN 46 creatinine 2.61 April 29: White count 10.8 hemoglobin 9.2 potassium 4.3 creatinine 1.05 April 28: White count 10.9 hemoglobin 8.4 iron 20 TIBC 272% saturation 7.35 Troponin I-3.2, 11.5 April 21: White count 10.2 hemoglobin 8.8 platelets 404 April 20: Sodium 132 potassium 5.3 BUN 26 creatinine 1.0 Previous testing Hemoglobin 8.[address]ogram: [February 2022] heavily calcified bilateral lower extremity arterial vasculature involving the superficial femoral arteries. Extending inferiorly. Extending into the femoral artery then is limited due to severe atherosclerotic plaque. Multiple areas of high-grade stenosis. Assessment and plan: -Acute left fifth toe dry gangrene and diabetic foot infection, secondary to diabetes and PAD, leading to left fifth toe amputation ray on March [address] Ledesma Return to see Dr. Ledesma in the office on April 08 with some drainage and being to have an order follow-up. Discharged on 10 days of Augmentin. Now presents with worsening local area with drainage and odor increased yesterday. Currently - IV or ertapenem Wound VAC removed topical Santyl PICC line placed. Per Dr. Haines patient for debridement on Monday -Acute non-Q wave [place]. Troponin peaked at 11.5 IV heparin. April 29: Cardiac catheterization by Dr. Madrid. Stent to RCA. Lesion to LAD to be further evaluated. -Acute kidney injury likely contrast-induced nephropathy. Patient has had a chest CT, to cardiac catheterization.: Some improvement Creatinine was running at 1.0. Peaked 2.6. Entresto and Aldactone discontinued. Did get IV fluids Nephrology is following -Severe triple-vessel coronary artery disease per cardiac catheterization Seen by cardiothoracic team.-Currently not for any intervention Stent to RCA on April 29 -IV heparin monitoring-discontinued Follow PTT -Severe peripheral arterial disease As per CT angiogram. Aspirin, Plavix Lipitor 40 mg nightly -Diabetes type 2 insulin-dependent uncontrolled A1c level 9.6 Levemir, Humulin R. Accu-Cheks with sliding scale insulin -Iron deficiency anemia -Coronary disease with history of stent placement Plavix- Aspirin-. Lipitor -Essential hypertension Lopressor 50 mg twice daily. 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 6 Weight loss measures -Anxiety -Full code Patient is being scheduled for debridement for Monday. Other medications to continue. Past Medical History Past Medical History: Asthma, Blood Disorder, Coronary Artery Disease (CAD), Diabetes Mellitus, Eye Disorder, GERD/Reflux, Hyperlipidemia, Hypertension, Myocardial Infarction ([place]), Pneumonia, Skin Disorder, Vascular Disorder Additional Past Medical History / Comment(s): Type II diabetic IDDM. retinitis pigmentosa (losing peripheral vision), Hx of cellulitis lt foot March 03, 2024. Circulation issues to lt leg-recent February 2024. IBD. Recent hospitalization @[facility] February-pt states she was anemic. States Hgb at discharge was 8.4. Pt states she had re-draw last week @[facility] out pt lab and it was Hgb was 9.6. She states she was put on Multivitamin. Last Myocardial Infarction Date:: 05/2015 History of Any Multi-Drug Resistant Organisms: None Reported Past Surgical History: Heart Catheterization, Heart Catheterization With Stent Additional Past Surgical History / Comment(s): boil under armpit (2000) Cardiac stent x3. Stent to lt leg March 07, 2024. Past Anesthesia/Blood Transfusion Reactions: No Reported Reaction Additional Past Anesthesia/Blood Transfusion Reaction / Comment(s): No hx of blood transfusion. Date of Last Stent Placement:: 05/30/2015 Past Psychological History: Anxiety Smoking Status: Former smoker Past Alcohol Use History: None Reported Past Drug Use History: None Reported
[2024-05-03] MEDS: SODIUM POLYSTYRENE SULFONATE 15 GM/60 ML BOTTLE PO STA (12:20)
--- NOTE | 2024-05-03 12:34 | P.PN ---
Subjective Progress Note Date: 05/03/24 Principal diagnosis: Left diabetic foot ulcer/for surgical infection Patient is a 58-year-old female with a past medical history significant for diabetes mellitus hypertension hyperlipidemia [place] recently admitted to hospital with back left fifth toe gangrene diabetic foot infection in this patient who is status post left fifth toe amputation on 03/29/2024, presenting back to the hospital worsening wound to the left fifth toe amputation site with some discoloration.Patient is status post PTCA and stent of the long segment mid right coronary artery completed on 04/29/2024 On today's evaluation that is 05/03/2024, the patient continues to be afebrile, the patient is on room air and breathing comfortably, the Pt denies having any chest pain or cough, the patient denies having any abdominal pain no vomiting or any diarrhea and denies any worsening pain to the left foot wound area. Patient creatinine is 1.20 Objective - Vital Signs Vital signs: Vital Signs Temp 98.4 F 05/03/24 08:59 Pulse 76 05/03/24 08:59 Resp 16 05/03/24 08:59 BP 155/68 05/03/24 08:59 Pulse Ox 97 05/03/24 08:59 FiO2 Intake & Output 05/02/24 05/03/24 05/03/24 18:59 06:59 18:59 Intake Total 236 360 Output Total 950 900 Balance 236 -950 -540 Weight 86.5 kg Intake: Oral 236 360 Output: Urine 950 900 Other: Voiding Method Toilet Toilet Bedside Commode Bedside Commode # Voids 2 - Exam GENERAL DESCRIPTION: Middle-aged female lying in bed in no distress RESPIRATORY SYSTEM: Unlabored breathing , decreased breath sounds at bases HEART: S1 S2 regular rate and rhythm , ABDOMEN: Soft , no tenderness EXTREMITIES: Left foot lateral border wound did have significant slough tissue and some necrotic changes at the bottom - Labs CBC & Chem 7: 04/30/24 11:40 05/03/24 07:08 Labs: Abnormal Lab Results - Last 24 Hours (Table) 05/02/24 05/02/24 05/03/24 Range/Units 16:41 20:04 07:08 Potassium 5.3 H (3.5-5.1) mmol/L BUN 32 H (7-17) mg/dL Creatinine 1.20 H (0.52-1.04) mg/dL POC Glucose (mg/dL) 194 H 221 H (70-110) mg/dL 05/03/24 Range/Units 11:54 Potassium (3.5-5.1) mmol/L BUN (7-17) mg/dL Creatinine (0.52-1.04) mg/dL POC Glucose (mg/dL) 123 H (70-110) mg/dL Assessment and Plan (1) Left foot infection Current Visit: Yes Status: Acute Code(s): L08.9 - LOCAL INFECTION OF THE SKIN AND SUBCUTANEOUS TISSUE, UNSP SNOMED Code(s): 596585056 (2) Allergy to multiple antibiotics Current Visit: No Status: Acute Code(s): Z88.1 - ALLERGY STATUS TO OTHER ANTIBIOTIC AGENTS SNOMED Code(s): 907356226 (3) Cellulitis of left foot Current Visit: No Status: Acute Code(s): L03.116 - CELLULITIS OF LEFT LOWER LIMB SNOMED Code(s): 88024488343386307 Plan: 1patient with a left fifth toe diabetic foot wound and this patient was status post amputation of the left fifth toe now with evidence of nonhealing wound to the left fifth amputation site and some gangrene failing outpatient oral Augmentin therapy we will need to cover for resistant gram-positive as well as gram-negative pathogen. 2patient has been evaluated by vascular surgery and planning for debridement of the wound, surgery has been postponed patient did have a cardiac cath and this plan is status post PTCA and stenting of the right coronary artery completed on 04/29/2024 3patient local culture currently growing ESBL E. coli as well as anaerobes 4- patient has been reeval by vascular surgery planning for debridement of the wound on Monday continue with Invanz patient did get a PICC line Dictation was produced using [employer] dictation software. please excuse any grammatical, word or spelling errors. Time with Patient: Less than 30
[2024-05-03] MEDS: METOPROLOL SUCCINATE (ER) 25 MG TAB.ER.24H PO STA (13:55)
--- NOTE | 2024-05-03 13:57 | P.PN ---
Subjective Progress Note Date: 05/03/24 HISTORY OF PRESENTING ILLNESS This is a pleasant 58-year-old with past medical history significant for hyp ertension, hyperlipidemia, CAD with prior PCI of the RCA and circumflex, diabetes mellitus type 2 and PAD and nonhealing ulcer. She follows in the office with Dr Donahue. She does have PAD and had recent lower extremity stenting in the setting of nonhealing ulcer. She presented 04/20 secondary to increased left foot pain and infection with possible osteomyelitis. She was scheduled for debridement 04/24 however upon induction of anesthesia patient had hypoxic episode and asystole requiring CPR. This was felt related to bronchospasm and during the time of intubation per anesthesia. She had return of spontaneous circulation and has been off of any vasopressors. She was extubated and surgery was not performed. Currently she denies any chest pain other than where her chest compressions were performed. Troponins elevated 3.2, 11.5. EKG showing normal sinus rhythm, poor R-wave progression, diffuse mild ST depressions in the lateral leads. She has had prior stress test from 2020 with abnormal anterior ischemia and plan was to repeat stress testing at some point in cardiology office. 04/27 She underwent left heart catheterization 04/26/2024 which revealed triple-vessel CAD with severe stenosis of the RCA and LAD. She was referred for evaluation by CV surgery and deemed to be at higher risk due to foot infection. Hemoglobin 7.6, creatinine 1.25, potassium 3.9. She denies any chest pain or pressure. Shortness of breath is stable. 04/28 Patient sitting up edge of bed. She denies any chest pain or pressure. Shortness of breath is okay. Hemoglobin 8.4 this morning. 04/30 Yesterday, patient underwent PTCA with Dr. Madrid, stenting of the mid RCA. Illnesses or yesterday afternoon after cardiac catheterization, patient did have some bradycardia in the 40s for which atropine 0.5 mg x 2 doses were given. Last evening, patient received beta-jasmyne and she had decrease in her heart rate again and a pause of 4.9 seconds. We will discontinue beta-jasmyne today. atient noted to have a 4.9-second pause yesterday evening. Yesterday afternoon after cath 05/01 Patient has had no further episodes of pauses. Heart rate has improved and running in the 70s. She denies having any chest pain or pressure and no shortness of breath. She states she is urinating a lot. Blood pressure 166/85, heart rate 69, pulse ox 98% on room air. Yesterday, patient was started on Farxiga, Entresto and Aldactone. Beta-jasmyne was held because of bradycardia and sinus pauses. Patient is concerned that she has been on metoprolol for many many years. We will resume at a lower dose and monitor. 05/02 Patient was resumed yesterday back on low-dose Toprol XL. Her heart rates have been running in the 50s to 70s. Blood pressure is 115/69 and pulse ox 95% on room air. Repeat blood work reveals sodium 136, potassium 5.1, BUN 36 creatinine 1.39. 05/03 Patient is refusing to take Farxiga as she thinks it is causing dizziness but discussed with patient and plan to continue Farxiga. Blood pressure 155/68, heart rate 76, pulse ox 97% on room air. Telemetry is sinus rhythm. Repeat blood work reveals potassium 5.3, sodium 137, BUN 32 and creatinine 1.2. PHYSICAL EXAMINATION Vital signs reviewed. CONSTITUTIONAL: No apparent distress. HEENT: Head is normocephalic. Pupils are equal, round. Sclerae anicteric. Mucous membranes of the mouth are moist. No JVD. No carotid bruit. CHEST EXAMINATION: Lungs are clear to auscultation. No chest wall tenderness is noted on palpation or with deep breathing. HEART EXAMINATION: Regular rate and rhythm. S1, S2 heard. No murmurs, gallops or rub. ABDOMEN: Soft, nontender. EXTREMITIES: no lower extremity edema and no calf tenderness. +LLE nonhealing ulcer. NEUROLOGIC EXAMINATION: Patient is awake, alert and oriented x3. ASSESSMENT Cardiac arrest, possible hypoxic related however significant non-STEMI Non-STEMI, triple-vessel disease with severe stenosis of RCA and LAD on the left heart catheterization status post stenting of the mid RCA Ischemic cardiomyopathy, EF 35 to 40%, new diagnosis Left foot gangrene with prior left fifth toe amputation 03/28 Diabetic ulcer left foot, present on admission Atypical chest pain related to CPR PAD with prior left lower extremity intervention CAD with prior history of PCI of circumflex and RCA Diabetes mellitus type 2 Anemia Hypertension Hyperlipidemia History of asthma Bradycardia with sinus pause 4.9-seconds Acute kidney injury PLAN Continue the following medications: Amlodipine 5 mg daily, patient on aspirin 81 mg daily, atorvastatin 80 mg at bedtime, Plavix 75 mg daily Continue patient on Farxiga 10 mg daily, patient agreeable to take Start patient back on losartan at 12.5 mg daily Increase metoprolol succinate to 25 mg daily Cardiology will sign off this case and follow on an as-needed basis. Please reconsult for any new concerns. Patient may follow-up in the office in one to [address] Andrea Donahue. Nurse practitioner note has been reviewed, I agree with documented findings and plan of care. Patient was seen and examined. Objective - Vital Signs Vital signs: Vital Signs Temp 98.4 F 05/03/24 08:59 Pulse 76 05/03/24 08:59 Resp 16 05/03/24 08:59 BP 155/68 05/03/24 08:59 Pulse Ox 97 05/03/24 08:59 FiO2 Intake & Output 05/02/24 05/03/24 05/03/24 18:59 06:59 18:59 Intake Total 236 360 Output Total 950 900 Balance 236 -950 -540 Weight 86.5 kg Intake: Oral 236 360 Output: Urine 950 900 Other: Voiding Method Toilet Toilet Bedside Commode Bedside Commode # Voids 2 - Labs CBC & Chem 7: 04/30/24 11:40 05/03/24 07:08 Labs: Abnormal Lab Results - Last 24 Hours (Table) 05/02/24 05/02/24 05/02/24 Range/Units 11:50 16:41 20:04 Potassium (3.5-5.1) mmol/L BUN (7-17) mg/dL Creatinine (0.52-1.04) mg/dL POC Glucose (mg/dL) 154 H 194 H 221 H (70-110) mg/dL 05/03/24 Range/Units 07:08 Potassium 5.3 H (3.5-5.1) mmol/L BUN 32 H (7-17) mg/dL Creatinine 1.20 H (0.52-1.04) mg/dL POC Glucose (mg/dL) (70-110) mg/dL
--- NOTE | 2024-05-03 14:06 | P.PN ---
Subjective Progress Note Date: 05/03/24 Patient seen in follow-up for acute kidney injury. Feeling well and no new complaints. Vital signs are stable. General: No acute distress. HEENT: Head exam is unremarkable. LUNGS: No audible rhonchi or wheezes. HEART: Rate and Rhythm are regular. ABDOMEN: Nontender. EXTREMITITES: No drainage. 1+ edema. Objective - Vital Signs Vital signs: Vital Signs Temp 98 F 05/03/24 12:00 Pulse 71 05/03/24 12:00 Resp 17 05/03/24 12:00 BP 139/96 05/03/24 12:00 Pulse Ox 96 05/03/24 12:00 FiO2 Intake & Output 05/02/24 05/03/24 05/03/24 18:59 06:59 18:59 Intake Total 236 360 Output Total 950 900 Balance 236 -950 -540 Weight 86.5 kg Intake: Oral 236 360 Output: Urine 950 900 Other: Voiding Method Toilet Toilet Bedside Commode Bedside Commode # Voids 2 - Labs CBC & Chem 7: 04/30/24 11:40 05/03/24 07:08 Labs: Abnormal Lab Results - Last 24 Hours (Table) 05/02/24 05/02/24 05/03/24 Range/Units 16:41 20:04 07:08 Potassium 5.3 H (3.5-5.1) mmol/L BUN 32 H (7-17) mg/dL Creatinine 1.20 H (0.52-1.04) mg/dL POC Glucose (mg/dL) 194 H 221 H (70-110) mg/dL 05/03/24 Range/Units 11:54 Potassium (3.5-5.1) mmol/L BUN (7-17) mg/dL Creatinine (0.52-1.04) mg/dL POC Glucose (mg/dL) 123 H (70-110) mg/dL Assessment and Plan Assessment: 1. Acute kidney injury secondary to ATN secondary to IV contrast exposure on April 26 and April 29, 2024, cardiac arrest, further worsen with the use of RUKHSANA inhibitor, diuretics and SGLT2 inhibitor. Baseline creatinine near 1.0. Peaked 2.6, now 1.4 today. Renal US no hydronephrosis. 2. Left fifth toe infection status post amputation on antibiotics. 3. Status post PEA arrest. 4. Coronary disease status post cardiac stents with most recent stent placed to the RCA on April 29, 2024. 5. Diabetes mellitus. 6. Benign hypertension. 7. Mild lower extremity edema. Plan: Hep-Lock IV fluids. Farxiga and Losartan resumed, monitor potassium closely. Amlodipine 5 mg once daily. Encouraged oral intake. OK for PICC line.
[2024-05-03 14:28] LABS: Glucose,Whole Blood 191 mg/dL (70-110)
[2024-05-03 16:51] LABS: Glucose,Whole Blood 104 mg/dL (70-110)
[2024-05-03 19:39] LABS: Glucose,Whole Blood 154 mg/dL (70-110)
[2024-05-03] MEDS: INSULIN REGULAR 100 UNIT/ML VIAL (IV) SQ SCH (20:47)
[2024-05-04 05:55] LABS: Glucose,Whole Blood 113 mg/dL (70-110)
--- NOTE | 2024-05-04 07:59 | P.PN ---
Subjective Principal diagnosis: left foot wound Doing well this morning. No new issues overnight. Changed dressings yesterday without issue. Objective - Vital Signs Vital signs: Vital Signs Temp 97.8 F 05/04/24 04:00 Pulse 69 05/04/24 04:00 Resp 17 05/04/24 04:00 BP 140/64 05/04/24 04:00 Pulse Ox 97 05/04/24 04:00 FiO2 Intake & Output 05/03/24 05/04/24 05/04/24 18:59 06:59 18:59 Intake Total 720 Output Total 1700 1500 Balance -980 -1500 Weight 85 kg Intake: Oral 720 Output: Urine 1700 1500 Other: Voiding Method Toilet Toilet Bedside Commode Bedside Commode - Exam non palpable dp or pt pulses bilaterally. capillary refill slowed bilaterally. +tenderness at the 5th toe amputation wound site. - Labs CBC & Chem 7: 04/30/24 11:40 05/03/24 07:08 Labs: Abnormal Lab Results - Last 24 Hours (Table) 05/03/24 05/03/24 05/03/24 Range/Units 07:08 09:08 11:54 Potassium 5.3 H (3.5-5.1) mmol/L BUN 32 H (7-17) mg/dL Creatinine 1.20 H (0.52-1.04) mg/dL POC Glucose (mg/dL) 191 H 123 H (70-110) mg/dL 05/03/24 05/04/24 Range/Units 19:37 05:54 Potassium (3.5-5.1) mmol/L BUN (7-17) mg/dL Creatinine (0.52-1.04) mg/dL POC Glucose (mg/dL) 154 H 113 H (70-110) mg/dL Assessment and Plan Assessment: 1. Infected left fifth toe amputation site 2. Left fifth toe amputation 03/28/2024 for gangrene 3. Diabetes mellitus 4. Medication noncompliance, patient is refusing ordered medications during her hospitalization including her insulin in IV antibiotics 5. Hyperglycemia 6. Brief PEA cardiac arrest with CPR initiated, likely secondary to anesthesia induction 7. Coronary artery disease, three-vessel coronary artery disease with severe stenosis involving large dominant right coronary artery and LAD Plan: Continue antibiotics and current wound care Monday for debridement.
[2024-05-04 08:00] LABS: HCT 28.9 % (34.0-46.0); HGB 8.4 gm/dL (11.4-16.0); Hypochromasia Marked; MCH 24.9 pg (25.0-35.0); MCV 85.6 fL (80.0-100.0); Mean Platelet Volume 7.7; Platelet Count 377 k/uL (150-450); RBC 3.38 m/uL (3.80-5.40); RDW 15.7 % (11.5-15.5); WBC 10.2 k/uL (3.8-10.6)
[2024-05-04 08:30] LABS: ALT 521 U/L (4-34); AST 147 U/L (14-36); African American GFR (CKD) 71 (>60 ml/min/1.73 sqM); Albumin 3.4 g/dL (3.5-5.0); Alkaline Phosphatase 140 U/L (38-126); Anion Gap 6 mmol/L; Blood Urea Nitrogen 27 mg/dL (7-17); Calcium 8.8 mg/dL (8.4-10.2); Carbon Dioxide 27 mmol/L (22-30); Chloride 105 mmol/L (98-107); Glucose 142 mg/dL (74-99); Non-African American GFR(CKD) 62 (>60 ml/min/1.73 sqM); Potassium 5.2 mmol/L (3.5-5.1); Sodium 138 mmol/L (137-145); Total Bilirubin 0.5 mg/dL (0.2-1.3); Total Protein 6.2 g/dL (6.3-8.2)
[2024-05-04] MEDS: METOPROLOL SUCCINATE (ER) 25 MG TAB.ER.24H PO SCH (08:46)
[2024-05-04] MEDS: LOSARTAN 25 MG TAB PO SCH (08:46)
[2024-05-04 11:31] LABS: Glucose,Whole Blood 164 mg/dL (70-110)
--- NOTE | 2024-05-04 12:13 | P.PN ---
Subjective patient is seen for follow-up for acute kidney injury. No significant complaints today. serum creatinine at 1.0. Potassium was 5.2 today. Started low-dose losartan today. Objective - Vital Signs Vital signs: Vital Signs Temp 98.2 F 05/04/24 08:44 Pulse 77 05/04/24 08:44 Resp 17 05/04/24 08:44 BP 173/74 05/04/24 08:44 Pulse Ox 97 05/04/24 08:44 FiO2 Intake & Output 05/03/24 05/04/24 05/04/24 18:59 06:59 18:59 Intake Total 720 360 Output Total 1700 1500 Balance -980 -1500 360 Weight 85 kg Intake: Oral 720 360 Output: Urine 1700 1500 Other: Voiding Method Toilet Toilet Toilet Bedside Commode Bedside Commode Bedside Commode - Exam patient is awake, comfortable, no acute distress. Examination of the heart S1 and S2 Examination of the lungs bilateral breath sounds are heard Abdomen is soft nontender Examination of lower extremities shows edema trace bilaterally PERIODONTIST exam grossly intact - Labs CBC & Chem 7: 05/04/24 07:37 05/04/24 07:37 Labs: Abnormal Lab Results - Last 24 Hours (Table) 05/03/24 05/03/24 05/04/24 Range/Units 09:08 19:37 05:54 RBC (3.80-5.40) m/uL Hgb (11.4-16.0) gm/dL Hct (34.0-46.0) % MCH (25.0-35.0) pg MCHC (31.0-37.0) g/dL RDW (11.5-15.5) % Potassium (3.5-5.1) mmol/L BUN (7-17) mg/dL Glucose (74-99) mg/dL POC Glucose (mg/dL) 191 H 154 H 113 H (70-110) mg/dL AST (14-36) U/L ALT (4-34) U/L Alkaline Phosphatase (38-126) U/L Total Protein (6.3-8.2) g/dL Albumin (3.5-5.0) g/dL 05/04/24 05/04/24 05/04/24 Range/Units 07:37 07:37 11:29 RBC 3.38 L (3.80-5.40) m/uL Hgb 8.4 L (11.4-16.0) gm/dL Hct 28.9 L (34.0-46.0) % MCH 24.9 L (25.0-35.0) pg MCHC 29.0 L (31.0-37.0) g/dL RDW 15.7 H (11.5-15.5) % Potassium 5.2 H (3.5-5.1) mmol/L BUN 27 H (7-17) mg/dL Glucose 142 H (74-99) mg/dL POC Glucose (mg/dL) 164 H (70-110) mg/dL AST 147 H (14-36) U/L ALT 521 H (4-34) U/L Alkaline Phosphatase 140 H (38-126) U/L Total Protein 6.2 L (6.3-8.2) g/dL Albumin 3.4 L (3.5-5.0) g/dL Assessment and Plan Assessment: 1. Acute kidney injury secondary to ATN secondary to IV contrast exposure on April 26 and April 29, 2024, cardiac arrest, further worsen with the use of RUKHSANA inhibitor, diuretics and SGLT2 inhibitor. Baseline creatinine near 1.0. Peaked 2.6, now 1.4 today. Renal US no hydronephrosis. 2. Left fifth toe infection status post amputation on antibiotics. 3. Status post PEA arrest. 4. Coronary disease status post cardiac stents with most recent stent placed to the RCA on April 29, 2024. 5. Diabetes mellitus. 6. Benign hypertension. 7. Mild lower extremity edema. Plan: monitor potassium closely as patient has been restarted on losartan. Low potassium diet. Repeat labs in a.m.
[2024-05-04] MEDS: amLODIPine 5 MG TAB PO STA (13:52)
--- NOTE | 2024-05-04 15:07 | P.PN ---
Subjective Progress Note Date: 05/04/24 Principal diagnosis: Left diabetic foot ulcer/for surgical infection Patient is a 58-year-old female with a past medical history significant for diabetes mellitus hypertension hyperlipidemia [place] recently admitted to hospital with back left fifth toe gangrene diabetic foot infection in this patient who is status post left fifth toe amputation on 03/29/2024, presenting back to the hospital worsening wound to the left fifth toe amputation site with some discoloration.Patient is status post PTCA and stent of the long segment mid right coronary artery completed on 04/29/2024 On today's evaluation that is 05/04/2024, Patient is afebrile patient is currently on room air and denies having any shortness of breath, the patient denies any chest pain or cough, the patient denies any nausea vomiting did not have any abdominal pain and no diarrhea denies any worsening pain to the left foot wound. Patient white count is 10.2 creatinine is 1.0 Objective - Vital Signs Vital signs: Vital Signs Temp 98.2 F 05/04/24 08:44 Pulse 77 05/04/24 08:44 Resp 17 05/04/24 08:44 BP 173/74 05/04/24 08:44 Pulse Ox 97 05/04/24 08:44 FiO2 Intake & Output 05/03/24 05/04/24 05/04/24 18:59 06:59 18:59 Intake Total 720 Output Total 1700 1500 Balance -980 -1500 Weight 85 kg Intake: Oral 720 Output: Urine 1700 1500 Other: Voiding Method Toilet Toilet Toilet Bedside Commode Bedside Commode Bedside Commode - Labs CBC & Chem 7: 05/04/24 07:37 05/04/24 07:37 Labs: Abnormal Lab Results - Last 24 Hours (Table) 05/03/24 05/03/24 05/03/24 Range/Units 09:08 11:54 19:37 RBC (3.80-5.40) m/uL Hgb (11.4-16.0) gm/dL Hct (34.0-46.0) % MCH (25.0-35.0) pg MCHC (31.0-37.0) g/dL RDW (11.5-15.5) % Potassium (3.5-5.1) mmol/L BUN (7-17) mg/dL Glucose (74-99) mg/dL POC Glucose (mg/dL) 191 H 123 H 154 H (70-110) mg/dL AST (14-36) U/L ALT (4-34) U/L Alkaline Phosphatase (38-126) U/L Total Protein (6.3-8.2) g/dL Albumin (3.5-5.0) g/dL 05/04/24 05/04/24 05/04/24 Range/Units 05:54 07:37 07:37 RBC 3.38 L (3.80-5.40) m/uL Hgb 8.4 L (11.4-16.0) gm/dL Hct 28.9 L (34.0-46.0) % MCH 24.9 L (25.0-35.0) pg MCHC 29.0 L (31.0-37.0) g/dL RDW 15.7 H (11.5-15.5) % Potassium 5.2 H (3.5-5.1) mmol/L BUN 27 H (7-17) mg/dL Glucose 142 H (74-99) mg/dL POC Glucose (mg/dL) 113 H (70-110) mg/dL AST 147 H (14-36) U/L ALT 521 H (4-34) U/L Alkaline Phosphatase 140 H (38-126) U/L Total Protein 6.2 L (6.3-8.2) g/dL Albumin 3.4 L (3.5-5.0) g/dL Assessment and Plan (1) Left foot infection Current Visit: Yes Status: Acute Code(s): L08.9 - LOCAL INFECTION OF THE SKIN AND SUBCUTANEOUS TISSUE, UNSP SNOMED Code(s): 113219471 (2) Allergy to multiple antibiotics Current Visit: No Status: Acute Code(s): Z88.1 - ALLERGY STATUS TO OTHER A NTIBIOTIC AGENTS SNOMED Code(s): 057242598 (3) Cellulitis of left foot Current Visit: No Status: Acute Code(s): L03.116 - CELLULITIS OF LEFT LOWER LIMB SNOMED Code(s): 23532183110996422 Plan: 1patient with a left fifth toe diabetic foot wound and this patient was status post amputation of the left fifth toe now with evidence of nonhealing wound to the left fifth amputation site and some gangrene failing outpatient oral Augmentin therapy we will need to cover for resistant gram-positive as well as gram-negative pathogen. 2patient has been evaluated by vascular surgery and planning for debridement of the wound, surgery has been postponed patient did have a cardiac cath and this plan is status post PTCA and stenting of the right coronary artery completed on 04/29/2024 3patient local culture currently growing ESBL E. coli as well as anaerobes 4- patient did get a PICC line continue with Memo, awaiting debridement of the wound on Monday Dictation was produced using [employer] dictation software. please excuse any grammatical, word or spelling errors. Time with Patient: Less than 30
--- NOTE | 2024-05-04 15:25 | P.PN ---
Progress Note - Text Progress Note Date: 05/04/24 Chief Complaint: Left foot infection Patient is a 58-year-old female with known history of coronary disease status post stent placement, diabetes type 2 insulin-dependent, hypertension, asthma and history of retinitis pigmentosa, anxiety 03/05/2024: CT angiogram of the abdomen aorta with runoff showed heavily calcified bilateral lower extremity arterial vasculature involving the superficial femoral arteries and extending inferiorly to the popliteal artery to the feet is limited due to severe atherosclerotic plaque. Patient was discharged from the hospital on March [address] Ledesma. Left toe was felt will probably demarcate. With gangrene. March 28: Left fifth toe ray amputation carried out by Dr. Ledesma. Patient did not return to the office outpatient to see Dr. Ledesma on April 08. There was some odor from the amputation site. Was given 10-day course of Augmentin. Patient now presents with increasing drainage and highly sensitive area of the left foot. No fever no chills. Appetite not too good. Has been using a walker April 22: Sitting at the edge of bed. Seen earlier by Dr. Haines from vascular. Plan for local debridement and deep tissue culture on April 24. Also seen by ID. Patient IV cefepime and vancomycin. And Flagyl. Eating 100% April 23: Resting in bed. Pending debridement of wound tomorrow. Getting IV cefepime IV vancomycin. Wound culture growing E. coli. April 24: Saw the patient this morning. Resting bed. Pending debridement. On antibiotics. NPO. IV this afternoon I got a call from Dr. Ledesma vascular surgery. Patient had respiratory compromise had to be intubated. Moved to the ICU. April 25: Patient in the ICU. Yesterday when patient is given anesthesia patient had a cardiac arrest. Had to be intubated. Was shortly extubated t after. Debridement was postponed. Patient's troponin became positive. Peaked at 11.5. He is planning for a cardiac catheterization. Patient initially refused antibiotics feeling is causing her bloating. I did explain to the patient that several of the reasons for the same. Has agreed to take antibiotics. On IV heparin EKG showed ST depression and some T wave changes April 26: Underwent cardiac catheterization by Dr. Andrea Donahue this morning. It showed: Long segment of severe stenosis 80 to 90% RCA. Circumflex 30%. LAD is diffusely diseased subtotally occluded in its midportion. Severe stenosis within the stent. Cardiology decided to do a stent to be done on Monday. Also seen by the cardiothoracic team. No intervention at the present time. Left foot wound has a wound VAC in place. Currently no plans for surgical debridement. Santyl is going to be placed and probably wound VAC removed. Discussed with patient April 27: Patient due for catheterization with stent on Monday. Getting IV heparin. Some throat discomfort from intubation. Oral intake fair. IV antibiotics April 28: Stable. Sitting at the edge edge of the bed. IV heparin. No chest pain or short of breath. Tolerating diet. Discussed. On IV or ertapenem. April 29: Patient underwent a cardiac catheterization by Dr. Madrid. Stent was placed to the RCA. Further evaluation with possible stress testing will be done for the LAD lesion. Patient resting in bed. No chest pain or shortness of breath. April 30: No chest pain. Lisinopril has been held. PICC line planned per ID. Also been started on Farxiga. Creatinine bumped to 2.61. Discussed with Dr. Woo. Will hold off Entresto and Aldactone for now. Will do strict I's and O's. Consult nephrology. Suspect contrast-induced nephropathy. May 01: Comfortable. Creatinine improved to 1.58 today. Making good urine. Being followed by nephrology. Farxiga was discontinued. IV fluids discontinued by nephrology. Amlodipine was added. Discussed with patient. Follow May 02: Comfortable. No chest pain. Creatinine down to 1.39. Pending PICC line for outpatient antibiotics. Discussed with patient. Farxiga added by cardiology May 03: Sitting up. Comfortable. Did get a PICC line. Spoke to Dr. Haines from vascular. He can schedule the patient for debridement on Monday. Patient does not want to leave before that. Will continue with current treatment plan. May 04: Blood pressure running high. Increase amlodipine to 10 mg. Extra 5 mg given today. LFTs are up with AST 147 ALT 521-will hold off Lipitor till starts coming down Active Medications Acetaminophen (Acetaminophen Tab 325 Mg Tab) 650 mg PO Q6HR PRN PRN Reason: Mild Pain or Fever > 100.5 Last Admin: 05/03/24 16:17 Dose: 650 mg Al Hydroxide/Mg Hydroxide (Mag Hydrox/Al Hydrox/Simeth 30 Ml Cup) 30 ml PO Q4HR PRN PRN Reason: Heartburn Last Admin: 05/01/24 20:48 Dose: 30 ml Albuterol Sulfate (Albuterol Hfa Inhaler) 2 puff INHALATION RT-Q6H PRN PRN Reason: Shortness Of Breath Alprazolam (Alprazolam 0.25 Mg Tab) 0.25 mg PO Q6HR PRN PRN Reason: Mild Anxiety Last Admin: 05/02/24 20:23 Dose: 0.25 mg Alprazolam (Alprazolam 0.5 Mg Tab) 0.5 mg PO Q6HR PRN PRN Reason: Moderate Anxiety Amlodipine Besylate (Amlodipine 10 Mg Tab) 10 mg PO DAILY [facility] Aspirin (Aspirin 81 Mg) 81 mg PO DAILY [facility] Last Admin: 05/04/24 08:45 Dose: 81 mg Atorvastatin Calcium (Atorvastatin 80 Mg Tab) 80 mg PO HS [facility] Last Admin: 05/03/24 20:46 Dose: Not Given Calcium Carbonate/Glycine (Calcium Carbonate 500 Mg Chewable) 1,000 mg PO Q4HR PRN PRN Reason: Dyspepsia Last Admin: 04/24/24 09:14 Dose: 1,000 mg Clopidogrel Bisulfate (Clopidogrel 75 Mg Tab) 75 mg PO DAILY [facility] Last Admin: 05/04/24 08:45 Dose: 75 mg Collagenase (Collagenase 250 Unit/Gm Ointment 30 Gm Tube) 1 applic TOPICAL DAILY [facility]; Protocol Last Admin: 05/04/24 08:46 Dose: 1 applic Dapagliflozin (Dapagliflozin Propanediol 10 Mg Tablet) 10 mg PO DAILY [facility] Last Admin: 05/04/24 08:46 Dose: 10 mg Famotidine (Famotidine 20 Mg Tab) 20 mg PO DAILY [facility] Last Admin: 05/04/24 08:45 Dose: 20 mg Gabapentin (Gabapentin 100 Mg Cap) 100 mg PO TID [facility] Last Admin: 05/04/24 08:45 Dose: 100 mg Hydromorphone HCl (Hydromorphone 0.5 Mg/0.5 Ml Syringe) 0.5 mg IVP Q3HR PRN PRN Reason: Moderate Pain (Scale 4 to 6) Last Admin: 04/24/24 21:18 Dose: 0.5 mg Hydromorphone HCl (Hydromorphone 1 Mg/Ml 1 Ml Syringe) 1 mg IVP Q3HR PRN PRN Reason: Severe Pain (Scale 7 to 10) Ertapenem 1 gm/ Sodium (Chloride) 50 mls @ 100 mls/hr IVPB DAILY [facility]; Protocol Last Admin: 05/04/24 08:45 Dose: 100 mls/hr Insulin Aspart (Insulin Aspart (Novolog) 100 Unit/Ml Vial) 0 unit SQ ACHS [facility]; Protocol Last Admin: 05/04/24 11:54 Dose: 3 unit Insulin Detemir (Insulin Detemir (Levemir) 100 Unit/Ml Syr) 30 unit SQ HS [facility] Last Admin: 05/03/24 20:46 Dose: 30 unit Insulin Human Regular (Insulin Regular 100 Unit/Ml Vial (Iv)) 30 unit SQ 0700,2100 [facility] Last Admin: 05/04/24 06:01 Dose: Not Given Lactulose (Lactulose 20 Gm/30 Ml Cup) 20 gm PO DAILY PRN PRN Reason: Constipation Last Admin: 04/28/24 08:25 Dose: 20 gm Lorazepam (Lorazepam 0.5 Mg Tab) 0.5 mg PO Q6HR PRN PRN Reason: Anxiety Last Admin: 04/25/24 03:31 Dose: 0.5 mg Losartan Potassium (Losartan 25 Mg Tab) 12.5 mg PO DAILY [facility] Last Admin: 05/04/24 08:46 Dose: 12.5 mg Melatonin (Melatonin 3 Mg Tablet) 3 mg PO HS PRN PRN Reason: Insomnia Metoprolol Succinate (Metoprolol Succinate (Er) 25 Mg Tab.Er.24h) 25 mg PO DAILY [facility] Last Admin: 05/04/24 08:46 Dose: 25 mg Naloxone HCl (Naloxone 0.4 Mg/Ml 1 Ml Vial) 0.2 mg IV Q2M PRN PRN Reason: Opioid Reversal Nitroglycerin (Nitroglycerin Sl Tabs 0.4 Mg Tab) 0.4 mg SUBLINGUAL Q5M PRN PRN Reason: Chest Pain Ondansetron HCl (Ondansetron 4 Mg/2 Ml Vial) 4 mg IVP Q8HR PRN PRN Reason: Nausea And Vomiting Last Admin: 04/29/24 11:43 Dose: 4 mg Zolpidem Tartrate (Zolpidem 5 Mg Tab) 5 mg PO HS PRN PRN Reason: Insomnia Social history: Lives alone. No alcohol. Patient smoked 1 pack a day from 1983 through 9897. On examination: VITAL SIGNS: 97.4, 72, 17, 181/88, 97% room air GENERAL APPEARANCE: Sitting in bed, comfortable HEENT: Normal external appearance of nose and ear. Oral cavity normal EYES: Pupils equal. Conjunctiva normal. NECK: JVD not raised. Mass not palpable. RESPIRATORY: Respiratory effort normal. Lungs clear to auscultation. CARDIOVASCULAR: First and second sounds normal. No edema. ABDOMEN: Soft. Liver and spleen not palpable. No tenderness. No mass palpable. PSYCHIATRY: Alert and oriented x3. Mood and affect normal. EXTREMITIES: Left foot in a dressing INVESTIGATIONS, reviewed in the clinical context: May 04: White count 10.2 hemoglobin 8.4 potassium 5.2 creatinine 1.0 AST 147 ALT 521 May 03: Potassium 5.3 BUN 32 creatinine 1.2 May 02: Sodium 136 potassium 5.1 BUN 36 creatinine 1.39 May 01: Sodium 135 potassium 5 BUN 41 creatinine 1.58 April 30: White count 9.8 hemoglobin 7.8 potassium 4.7 BUN 46 creatinine 2.61 April 29: White count 10.8 hemoglobin 9.2 potassium 4.3 creatinine 1.05 April 28: White count 10.9 hemoglobin 8.4 iron 20 TIBC 272% saturation 7.35 Troponin I-3.2, 11.5 April 21: White count 10.2 hemoglobin 8.8 platelets 404 April 20: Sodium 132 potassium 5.3 BUN 26 creatinine 1.0 Previous testing Hemoglobin 8.[address]ogram: [February 2022] heavily calcified bilateral lower extremity arterial vasculature involving the superficial femoral arteries. Extending inferiorly. Extending into the femoral artery then is limited due to severe atherosclerotic plaque. Multiple areas of high-grade stenosis. Assessment and plan: -Acute left fifth toe dry gangrene and diabetic foot infection, secondary to diabetes and PAD, leading to left fifth toe amputation ray on March [address] Ledesma Return to see Dr. Ledesma in the office on April 08 with some drainage and being to have an order follow-up. Discharged on 10 days of Augmentin. Now presents with worsening local area with drainage and odor increased yesterday. Currently - IV or ertapenem Wound VAC removed topical Santyl PICC line placed. Per Dr. Haines patient for debridement on Monday -Ischemic cardiomyopathy EF 35 to 40% -Acute non-Q wave RI. Troponin peaked at 11.5 IV heparin. April 29: Cardiac catheterization by Dr. Madrid. Stent to RCA. Lesion to LAD to be further evaluated. -Acute kidney injury likely contrast-induced nephropathy. Patient has had a chest CT, to cardiac catheterization.: Improving Creatinine was running at 1.0. Peaked 2.6. Entresto and Aldactone discontinued. Did get IV fluids Nephrology is following -Severe triple-vessel coronary artery disease per cardiac catheterization Seen by cardiothoracic team.-Currently not for any intervention Stent to RCA on April 29 -Acute hepatitis, could have been ischemic For now hold off Lipitor. Follow daily LFTs. Resume Lipitor when LFTs better -IV heparin monitoring-discontinued Follow PTT -Severe peripheral arterial disease As per CT angiogram. Aspirin, Plavix Lipitor 40 mg nightly -Diabetes type 2 insulin-dependent uncontrolled A1c level 9.6 Levemir, Humulin R. Accu-Cheks with sliding scale insulin -Iron deficiency anemia -Coronary disease with history of stent placement Plavix- Aspirin-. Lipitor -Essential hypertension, uncontrolled Lopressor 50 mg twice daily. 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 6 Weight loss measures -Anxiety -Full code Increase amlodipine to 10 mg a day. Hold Lipitor. Follow LFTs. Past Medical History Past Medical History: Asthma, Blood Disorder, Coronary Artery Disease (CAD), Diabetes Mellitus, Eye Disorder, GERD/Reflux, Hyperlipidemia, Hypertension, Myocardial Infarction (RI), Pneumonia, Skin Disorder, Vascular Disorder Additional Past Medical History / Comment(s): Type II diabetic IDDM. retinitis pigmentosa (losing peripheral vision), Hx of cellulitis lt foot March 03, 2024. Circulation issues to lt leg-recent February 2024. IBD. Recent hospitalization @[facility] February-pt states she was anemic. States Hgb at discharge was 8.4. Pt states she had re-draw last week @[facility] out pt lab and it was Hgb was 9.6. She states she was put on Multivitamin. Last Myocardial Infarction Date:: 05/2015 History of Any Multi-Drug Resistant Organisms: None Reported Past Surgical History: Heart Catheterization, Heart Catheterization With Stent Additional Past Surgical History / Comment(s): boil under armpit (2000) Cardiac stent x3. Stent to lt leg March 07, 2024. Past Anesthesia/Blood Transfusion Reactions: No Reported Reaction Additional Past Anesthesia/Blood Transfusion Reaction / Comment(s): No hx of blood transfusion. Date of Last Stent Placement:: 05/30/2015 Past Psychological History: Anxiety Smoking Status: Former smoker Past Alcohol Use History: None Reported Past Drug Use History: None Reported
[2024-05-04] MEDS: ALPRAZolam 0.5 MG TAB PO PRN (16:21)
[2024-05-04 16:48] LABS: Glucose,Whole Blood 143 mg/dL (70-110)
[2024-05-04] MEDS: FUROSEMIDE 20 MG TAB PO SCH (17:03)
[2024-05-04 20:26] LABS: Glucose,Whole Blood 270 mg/dL (70-110)
[2024-05-05 06:25] LABS: Glucose,Whole Blood 148 mg/dL (70-110)
[2024-05-05 08:16] LABS: ALT 378 U/L (4-34); AST 74 U/L (14-36); African American GFR (CKD) 61 (>60 ml/min/1.73 sqM); Albumin 3.6 g/dL (3.5-5.0); Alkaline Phosphatase 135 U/L (38-126); Anion Gap 9 mmol/L; Blood Urea Nitrogen 28 mg/dL (7-17); Calcium 9.1 mg/dL (8.4-10.2); Carbon Dioxide 26 mmol/L (22-30); Chloride 104 mmol/L (98-107); Glucose 135 mg/dL (74-99); Non-African American GFR(CKD) 53 (>60 ml/min/1.73 sqM); Potassium 5.1 mmol/L (3.5-5.1); Sodium 139 mmol/L (137-145); Total Bilirubin 0.5 mg/dL (0.2-1.3); Total Protein 6.5 g/dL (6.3-8.2)
[2024-05-05] MEDS: amLODIPine 10 MG TAB PO SCH (09:22)
[2024-05-05 11:57] LABS: Glucose,Whole Blood 248 mg/dL (70-110)
--- NOTE | 2024-05-05 14:37 | P.PN ---
Subjective Progress Note Date: 05/05/24 Principal diagnosis: Left diabetic foot ulcer/for surgical infection Patient is a 58-year-old female with a past medical history significant for diabetes mellitus hypertension hyperlipidemia [place] recently admitted to hospital with back left fifth toe gangrene diabetic foot infection in this patient who is status post left fifth toe amputation on 03/29/2024, presenting back to the hospital worsening wound to the left fifth toe amputation site with some discoloration.Patient is status post PTCA and stent of the long segment mid right coronary artery completed on 04/29/2024 On today's evaluation that is 05/05/2024, patient has been afebrile, patient is breathing comfortably and is currently on room air, patient denies having any significant cough no chest pain shortness of breath, patient denies nausea vomiting or diarrhea and no abdominal pain denies any worsening pain to the left foot wound. Patient currently is 1.14, ALT 521 yesterday and is down to 378 Objective - Vital Signs Vital signs: Vital Signs Temp 97.6 F 05/05/24 11:59 Pulse 72 05/05/24 11:59 Resp 17 05/05/24 11:59 BP 137/61 05/05/24 11:59 Pulse Ox 99 05/05/24 11:59 FiO2 Intake & Output 05/04/24 05/05/24 05/05/24 18:59 06:59 18:59 Intake Total 1080 360 Output Total 400 Balance 1080 -400 360 Weight 84.5 kg Intake: Oral 1080 360 Output: Urine 400 Other: Voiding Method Toilet Toilet Toilet Bedside Commode Bedside Commode Bedside Commode - Exam GENERAL DESCRIPTION: Middle-aged female lying in bed in no distress RESPIRATORY SYSTEM: Unlabored breathing , decreased breath sounds at bases HEART: S1 S2 regular rate and rhythm , ABDOMEN: Soft , no tenderness EXTREMITIES: Left foot lateral border wound did have significant slough tissue and some necrotic changes at the bottom - Labs CBC & Chem 7: 05/04/24 07:37 05/05/24 07:30 Labs: Abnormal Lab Results - Last 24 Hours (Table) 05/04/24 05/04/24 05/05/24 Range/Units 16:46 20:24 06:23 BUN (7-17) mg/dL Creatinine (0.52-1.04) mg/dL Glucose (74-99) mg/dL POC Glucose (mg/dL) 143 H 270 H 148 H (70-110) mg/dL AST (14-36) U/L ALT (4-34) U/L Alkaline Phosphatase (38-126) U/L 05/05/24 05/05/24 Range/Units 07:30 11:55 BUN 28 H (7-17) mg/dL Creatinine 1.14 H (0.52-1.04) mg/dL Glucose 135 H (74-99) mg/dL POC Glucose (mg/dL) 248 H (70-110) mg/dL AST 74 H (14-36) U/L ALT 378 H (4-34) U/L Alkaline Phosphatase 135 H (38-126) U/L Assessment and Plan (1) Left foot infection Current Visit: Yes Status: Acute Code(s): L08.9 - LOCAL INFECTION OF THE SKIN AND SUBCUTANEOUS TISSUE, UNSP SNOMED Code(s): 796382153 (2) Allergy to multiple antibiotics Current Visit: No Status: Acute Code(s): Z88.1 - ALLERGY STATUS TO OTHER ANTIBIOTIC AGENTS SNOMED Code(s): 666447652 (3) Cellulitis of left foot Current Visit: No Status: Acute Code(s): L03.116 - CELLULITIS OF LEFT LOWER LIMB SNOMED Code(s): 63840546800386894 Plan: 1patient with a left fifth toe diabetic foot wound and this patient was status post amputation of the left fifth toe now with evidence of nonhealing wound to the left fifth amputation site and some gangrene failing outpatient oral Augmentin therapy we will need to cover for resistant gram-positive as well as gram-negative pathogen. 2patient has been evaluated by vascular surgery and planning for debridement of the wound, surgery has been postponed patient did have a cardiac cath and this plan is status post PTCA and stenting of the right coronary artery completed on 04/29/2024 3patient local culture currently growing ESBL E. coli as well as anaerobes 4- patient did have slightly elevated ALT yesterday however is down today and will monitor closely continue with Invanz await surgical debridement and deep culture scheduled for tomorrow Dictation was produced using [employer] dictation software. please excuse any grammatical, word or spelling errors. Time with Patient: Less than 30
--- NOTE | 2024-05-05 16:26 | P.PN ---
Progress Note - Text Progress Note Date: 05/05/24 Chief Complaint: Left foot infection Patient is a 58-year-old female with known history of coronary disease status post stent placement, diabetes type 2 insulin-dependent, hypertension, asthma and history of retinitis pigmentosa, anxiety 03/05/2024: CT angiogram of the abdomen aorta with runoff showed heavily calcified bilateral lower extremity arterial vasculature involving the superficial femoral arteries and extending inferiorly to the popliteal artery to the feet is limited due to severe atherosclerotic plaque. Patient was discharged from the hospital on March [address] Ledesma. Left toe was felt will probably demarcate. With gangrene. March 28: Left fifth toe ray amputation carried out by Dr. Ledesma. Patient did not return to the office outpatient to see Dr. Ledesma on April 08. There was some odor from the amputation site. Was given 10-day course of Augmentin. Patient now presents with increasing drainage and highly sensitive area of the left foot. No fever no chills. Appetite not too good. Has been using a walker April 22: Sitting at the edge of bed. Seen earlier by Dr. Haines from vascular. Plan for local debridement and deep tissue culture on April 24. Also seen by ID. Patient IV cefepime and vancomycin. And Flagyl. Eating 100% April 23: Resting in bed. Pending debridement of wound tomorrow. Getting IV cefepime IV vancomycin. Wound culture growing E. coli. April 24: Saw the patient this morning. Resting bed. Pending debridement. On antibiotics. NPO. IV this afternoon I got a call from Dr. Ledesma vascular surgery. Patient had respiratory compromise had to be intubated. Moved to the ICU. April 25: Patient in the ICU. Yesterday when patient is given anesthesia patient had a cardiac arrest. Had to be intubated. Was shortly extubated t after. Debridement was postponed. Patient's troponin became positive. Peaked at 11.5. He is planning for a cardiac catheterization. Patient initially refused antibiotics feeling is causing her bloating. I did explain to the patient that several of the reasons for the same. Has agreed to take antibiotics. On IV heparin EKG showed ST depression and some T wave changes April 26: Underwent cardiac catheterization by Dr. Andrea Donahue this morning. It showed: Long segment of severe stenosis 80 to 90% RCA. Circumflex 30%. LAD is diffusely diseased subtotally occluded in its midportion. Severe stenosis within the stent. Cardiology decided to do a stent to be done on Monday. Also seen by the cardiothoracic team. No intervention at the present time. Left foot wound has a wound VAC in place. Currently no plans for surgical debridement. Santyl is going to be placed and probably wound VAC removed. Discussed with patient April 27: Patient due for catheterization with stent on Monday. Getting IV heparin. Some throat discomfort from intubation. Oral intake fair. IV antibiotics April 28: Stable. Sitting at the edge edge of the bed. IV heparin. No chest pain or short of breath. Tolerating diet. Discussed. On IV or ertapenem. April 29: Patient underwent a cardiac catheterization by Dr. Madrid. Stent was placed to the RCA. Further evaluation with possible stress testing will be done for the LAD lesion. Patient resting in bed. No chest pain or shortness of breath. April 30: No chest pain. Lisinopril has been held. PICC line planned per ID. Also been started on Farxiga. Creatinine bumped to 2.61. Discussed with Dr. Woo. Will hold off Entresto and Aldactone for now. Will do strict I's and O's. Consult nephrology. Suspect contrast-induced nephropathy. May 01: Comfortable. Creatinine improved to 1.58 today. Making good urine. Being followed by nephrology. Farxiga was discontinued. IV fluids discontinued by nephrology. Amlodipine was added. Discussed with patient. Follow May 02: Comfortable. No chest pain. Creatinine down to 1.39. Pending PICC line for outpatient antibiotics. Discussed with patient. Farxiga added by cardiology May 03: Sitting up. Comfortable. Did get a PICC line. Spoke to Dr. Haines from vascular. He can schedule the patient for debridement on Monday. Patient does not want to leave before that. Will continue with current treatment plan. April 6: Blood pressure running high. Increase amlodipine to 10 mg. Extra 5 mg given today. LFTs are up with AST 147 ALT 521-will hold off Lipitor till starts coming down April 7: Blood pressure better. No chest pain. LFTs have started to come down. Nurse informed me that patient had not been getting her Lipitor. This could be an ischemic liver in that case. Will follow. Patient due for debridement of the foot tomorrow. Active Medications Acetaminophen (Acetaminophen Tab 325 Mg Tab) 650 mg PO Q6HR PRN PRN Reason: Mild Pain or Fever > 100.5 Last Admin: 05/04/24 21:17 Dose: 650 mg Al Hydroxide/Mg Hydroxide (Mag Hydrox/Al Hydrox/Simeth 30 Ml Cup) 30 ml PO Q4HR PRN PRN Reason: Heartburn Last Admin: 05/01/24 20:48 Dose: 30 ml Albuterol Sulfate (Albuterol Hfa Inhaler) 2 puff INHALATION RT-Q6H PRN PRN Reason: Shortness Of Breath Alprazolam (Alprazolam 0.25 Mg Tab) 0.25 mg PO Q6HR PRN PRN Reason: Mild Anxiety Last Admin: 05/02/24 20:23 Dose: 0.25 mg Alprazolam (Alprazolam 0.5 Mg Tab) 0.5 mg PO Q6HR PRN PRN Reason: Moderate Anxiety Last Admin: 05/05/24 09:25 Dose: 0.5 mg Amlodipine Besylate (Amlodipine 10 Mg Tab) 10 mg PO DAILY [facility] Last Admin: 05/05/24 09:22 Dose: 10 mg Aspirin (Aspirin 81 Mg) 81 mg PO DAILY [facility] Last Admin: 05/05/24 09:21 Dose: 81 mg Calcium Carbonate/Glycine (Calcium Carbonate 500 Mg Chewable) 1,000 mg PO Q4HR PRN PRN Reason: Dyspepsia Last Admin: 04/24/24 09:14 Dose: 1,000 mg Clopidogrel Bisulfate (Clopidogrel 75 Mg Tab) 75 mg PO DAILY [facility] Last Admin: 05/05/24 09:22 Dose: 75 mg Collagenase (Collagenase 250 Unit/Gm Ointment 30 Gm Tube) 1 applic TOPICAL DAILY [facility]; Protocol Last Admin: 05/05/24 09:23 Dose: 1 applic Dapagliflozin (Dapagliflozin Propanediol 10 Mg Tablet) 10 mg PO DAILY [facility] Last Admin: 05/05/24 09:21 Dose: 10 mg Famotidine (Famotidine 20 Mg Tab) 20 mg PO DAILY [facility] Last Admin: 05/05/24 09:21 Dose: 20 mg Furosemide (Furosemide 20 Mg Tab) 20 mg PO DAILY [facility] Last Admin: 05/05/24 09:21 Dose: 20 mg Gabapentin (Gabapentin 100 Mg Cap) 100 mg PO TID [facility] Last Admin: 05/05/24 09:21 Dose: 100 mg Hydromorphone HCl (Hydromorphone 0.5 Mg/0.5 Ml Syringe) 0.5 mg IVP Q3HR PRN PRN Reason: Moderate Pain (Scale 4 to 6) Last Admin: 04/24/24 21:18 Dose: 0.5 mg Hydromorphone HCl (Hydromorphone 1 Mg/Ml 1 Ml Syringe) 1 mg IVP Q3HR PRN PRN Reason: Severe Pain (Scale 7 to 10) Ertapenem 1 gm/ Sodium (Chloride) 50 mls @ 100 mls/hr IVPB DAILY [facility]; Protocol Last Admin: 05/05/24 12:00 Dose: 100 mls/hr Insulin Aspart (Insulin Aspart (Novolog) 100 Unit/Ml Vial) 0 unit SQ ACHS [facility]; Protocol Last Admin: 05/05/24 12:00 Dose: 6 unit Insulin Detemir (Insulin Detemir (Levemir) 100 Unit/Ml Syr) 30 unit SQ HS [facility] Last Admin: 05/04/24 20:45 Dose: 30 unit Insulin Human Regular (Insulin Regular 100 Unit/Ml Vial (Iv)) 30 unit SQ 0700,2100 [facility] Last Admin: 05/05/24 06:25 Dose: Not Given Lactulose (Lactulose 20 Gm/30 Ml Cup) 20 gm PO DAILY PRN PRN Reason: Constipation Last Admin: 04/28/24 08:25 Dose: 20 gm Lorazepam (Lorazepam 0.5 Mg Tab) 0.5 mg PO Q6HR PRN PRN Reason: Anxiety Last Admin: 04/25/24 03:31 Dose: 0.5 mg Losartan Potassium (Losartan 25 Mg Tab) 12.5 mg PO DAILY [facility] Last Admin: 05/05/24 09:21 Dose: 12.5 mg Melatonin (Melatonin 3 Mg Tablet) 3 mg PO HS PRN PRN Reason: Insomnia Metoprolol Succinate (Metoprolol Succinate (Er) 25 Mg Tab.Er.24h) 25 mg PO DAILY [facility] Last Admin: 05/05/24 09:21 Dose: 25 mg Naloxone HCl (Naloxone 0.4 Mg/Ml 1 Ml Vial) 0.2 mg IV Q2M PRN PRN Reason: Opioid Reversal Nitroglycerin (Nitroglycerin Sl Tabs 0.4 Mg Tab) 0.4 mg SUBLINGUAL Q5M PRN PRN Reason: Chest Pain Ondansetron HCl (Ondansetron 4 Mg/2 Ml Vial) 4 mg IVP Q8HR PRN PRN Reason: Nausea And Vomiting Last Admin: 04/29/24 11:43 Dose: 4 mg Zolpidem Tartrate (Zolpidem 5 Mg Tab) 5 mg PO HS PRN PRN Reason: Insomnia Social history: Lives alone. No alcohol. Patient smoked 1 pack a day from 1983 through 9897. On examination: VITAL SIGNS: 97.6, 72, 17, 137.61, 99% room air GENERAL APPEARANCE: Sitting in bed, comfortable HEENT: Normal external appearance of nose and ear. Oral cavity normal EYES: Pupils equal. Conjunctiva normal. NECK: JVD not raised. Mass not palpable. RESPIRATORY: Respiratory effort normal. Lungs clear to auscultation. CARDIOVASCULAR: First and second sounds normal. No edema. ABDOMEN: Soft. Liver and spleen not palpable. No tenderness. No mass palpable. PSYCHIATRY: Alert and oriented x3. Mood and affect normal. EXTREMITIES: Left foot in a dressing INVESTIGATIONS, reviewed in the clinical context: May 05: Potassium 5.1 BUN 28 creatinine 1.14 AST 74 ALT 378 May 04: White count 10.2 hemoglobin 8.4 potassium 5.2 creatinine 1.0 AST 147 ALT 521 May 03: Potassium 5.3 BUN 32 creatinine 1.2 May 02: Sodium 136 potassium 5.1 BUN 36 creatinine 1.39 May 01: Sodium 135 potassium 5 BUN 41 creatinine 1.58 April 30: White count 9.8 hemoglobin 7.8 potassium 4.7 BUN 46 creatinine 2.61 April 29: White count 10.8 hemoglobin 9.2 potassium 4.3 creatinine 1.05 April 28: White count 10.9 hemoglobin 8.4 iron 20 TIBC 272% saturation 7.35 Troponin I-3.2, 11.5 April 21: White count 10.2 hemoglobin 8.8 platelets 404 April 20: Sodium 132 potassium 5.3 BUN 26 creatinine 1.0 Previous testing Hemoglobin 8.[address]ogram: [February 2022] heavily calcified bilateral lower extremity arterial vasculature involving the superficial femoral arteries. Extending inferiorly. Extending into the femoral artery then is limited due to severe atherosclerotic plaque. Multiple areas of high-grade stenosis. Assessment and plan: -Acute left fifth toe dry gangrene and diabetic foot infection, secondary to diabetes and PAD, leading to left fifth toe amputation ray on March [address] Ledesma Return to see Dr. Ledesma in the office on April 08 with some drainage and being to have an order follow-up. Discharged on 10 days of Augmentin. Now presents with worsening local area with drainage and odor increased yesterday. Currently - IV or ertapenem Wound VAC removed topical Santyl PICC line placed. Per Dr. Haines patient for debridement tomorrow -Ischemic cardiomyopathy EF 35 to 40% Lasix 20 mg a day -Acute non-Q wave DE. Troponin peaked at 11.5 IV heparin. April 29: Cardiac catheterization by Dr. Madrid. Stent to RCA. Lesion to LAD to be further evaluated. -Acute kidney injury likely contrast-induced nephropathy. Patient has had a chest CT, to cardiac catheterization.: Improving Creatinine was running at 1.0. Peaked 2.6. Entresto and Aldactone discontinued. Did get IV fluids Nephrology is following -Severe triple-vessel coronary artery disease per cardiac catheterization Seen by cardiothoracic team.-Currently not for any intervention Stent to RCA on April 29 -Acute hepatitis, could have been ischemic: improving Lipitor has been held -IV heparin monitoring-discontinued Follow PTT -Severe peripheral arterial disease As per CT angiogram. Aspirin, Plavix Lipitor-held -Diabetes type 2 insulin-dependent uncontrolled A1c level 9.6 Levemir, Humulin R. Accu-Cheks with sliding scale insulin -Iron deficiency anemia -Coronary disease with history of stent placement Plavix- Aspirin-. Lipitor-held -Essential hypertension, Lopressor 50 mg twice daily. 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 6 Weight loss measures -Anxiety -Full code Follow LFTs. Coming down. Scheduled for debridement for the foot tomorrow. Hopefully can be discharged by Monday Past Medical History Past Medical History: Asthma, Blood Disorder, Coronary Artery Disease (CAD), Diabetes Mellitus, Eye Disorder, GERD/Reflux, Hyperlipidemia, Hypertension, Myocardial Infarction (DE), Pneumonia, Skin Disorder, Vascular Disorder Additional Past Medical History / Comment(s): Type II diabetic IDDM. retinitis pigmentosa (losing peripheral vision), Hx of cellulitis lt foot March 03, 2024. Circulation issues to lt leg-recent February 2024. IBD. Recent hospitalization @[facility] February-pt states she was anemic. States Hgb at discharge was 8.4. Pt states she had re-draw last week @[facility] out pt lab and it was Hgb was 9.6. She states she was put on Multivitamin. Last Myocardial Infarction Date:: 05/2015 History of Any Multi-Drug Resistant Organisms: None Reported Past Surgical History: Heart Catheterization, Heart Catheterization With Stent Additional Past Surgical History / Comment(s): boil under armpit (2000) Cardiac stent x3. Stent to lt leg March 07, 2024. Past Anesthesia/Blood Transfusion Reactions: No Reported Reaction Additional Past Anesthesia/Blood Transfusion Reaction / Comment(s): No hx of blood transfusion. Date of Last Stent Placement:: 05/30/2015 Past Psychological History: Anxiety Smoking Status: Former smoker Past Alcohol Use History: None Reported Past Drug Use History: None Reported
[2024-05-05 16:37] LABS: Glucose,Whole Blood 294 mg/dL (70-110)
[2024-05-05 20:21] LABS: Glucose,Whole Blood 334 mg/dL (70-110)
[2024-05-06 06:24] LABS: Glucose,Whole Blood 215 mg/dL (70-110)
[2024-05-06 08:34] LABS: Basophils # (A) 0.1 k/uL (0-0.2); Basophils % (A) 1 %; Eosinophils # (A) 0.2 k/uL (0-0.7); Eosinophils % (A) 2 %; HCT 30.1 % (34.0-46.0); HGB 9.1 gm/dL (11.4-16.0); Hypochromasia Moderate; Lymphocytes # (A) 1.2 k/uL (1.0-4.8); Lymphocytes % (A) 12 %; MCH 25.7 pg (25.0-35.0); MCHC 30.4 g/dL (31.0-37.0); MCV 84.8 fL (80.0-100.0); Mean Platelet Volume 7.7; Monocytes # (A) 0.5 k/uL (0-1.0); Monocytes % (A) 5 %; Neutrophils # (A) 7.8 k/uL (1.3-7.7); Neutrophils % (A) 80 %; Platelet Count 394 k/uL (150-450); RBC 3.55 m/uL (3.80-5.40); RDW 15.4 % (11.5-15.5); WBC 9.8 k/uL (3.8-10.6)
--- NOTE | 2024-05-06 11:48 | P.PN ---
Subjective Progress Note Date: 05/06/24 Principal diagnosis: Left diabetic foot ulcer/for surgical infection Patient is a 58-year-old female with a past medical history significant for diabetes mellitus hypertension hyperlipidemia [place] recently admitted to hospital with back left fifth toe gangrene diabetic foot infection in this patient who is status post left fifth toe amputation on 03/29/2024, presenting back to the hospital worsening wound to the left fifth toe amputation site with some discoloration.Patient is status post PTCA and stent of the long segment mid right coronary artery completed on 04/29/2024 On today's evaluation that is 05/06/2024, Patient is afebrile this morning and denies any chills, patient mention breathing comfortably and is currently on room air, patient denies any chest pain occasional cough patient denies any abdominal pain no diarrhea no nausea no vomiting denies any worsening pain to the left foot wound area. Patient white count is 9.8 creatinine was 1.14 as of yesterday blood culture has been negative Objective - Vital Signs Vital signs: Vital Signs Temp 98.0 F 05/06/24 08:45 Pulse 71 05/06/24 08:45 Resp 17 05/06/24 08:45 BP 145/65 05/06/24 08:45 Pulse Ox 99 05/06/24 08:45 FiO2 Intake & Output 05/05/24 05/06/24 05/06/24 18:59 06:59 18:59 Intake Total 960 120 Output Total 900 600 Balance 60 -480 Weight 84.6 kg Intake: Oral 960 120 Output: Urine 900 600 Other: Voiding Method Toilet Toilet Bedside Commode Bedside Commode - Exam GENERAL DESCRIPTION: Middle-aged female lying in bed in no distress RESPIRATORY SYSTEM: Unlabored breathing , decreased breath sounds at bases HEART: S1 S2 regular rate and rhythm , ABDOMEN: Soft , no tenderness EXTREMITIES: Left foot lateral border wound did have significant slough tissue and some necrotic changes at the bottom - Labs CBC & Chem 7: 05/06/24 08:00 05/05/24 07:30 Labs: Abnormal Lab Results - Last 24 Hours (Table) 05/05/24 05/05/24 05/05/24 Range/Units 11:55 16:35 20:20 RBC (3.80-5.40) m/uL Hgb (11.4-16.0) gm/dL Hct (34.0-46.0) % MCHC (31.0-37.0) g/dL Neutrophils # (1.3-7.7) k/uL POC Glucose (mg/dL) 248 H 294 H 334 H (70-110) mg/dL 05/06/24 05/06/24 Range/Units 06:22 08:00 RBC 3.55 L (3.80-5.40) m/uL Hgb 9.1 L (11.4-16.0) gm/dL Hct 30.1 L (34.0-46.0) % MCHC 30.4 L (31.0-37.0) g/dL Neutrophils # 7.8 H (1.3-7.7) k/uL POC Glucose (mg/dL) 215 H (70-110) mg/dL Assessment and Plan (1) Left foot infection Current Visit: Yes Status: Acute Code(s): L08.9 - LOCAL INFECTION OF THE SKIN AND SUBCUTANEOUS TISSUE, UNSP SNOMED Code(s): 529268004 (2) Allergy to multiple antibiotics Current Visit: No Status: Acute Code(s): Z88.1 - ALLERGY STATUS TO OTHER ANTIBIOTIC AGENTS SNOMED Code(s): 874652127 (3) Cellulitis of left foot Current Visit: No Status: Acute Code(s): L03.116 - CELLULITIS OF LEFT LOWER LIMB SNOMED Code(s): 44838660655230327 Plan: 1patient with a left fifth toe diabetic foot wound and this patient was status post amputation of the left fifth toe now with evidence of nonhealing wound to the left fifth amputation site and some gangrene failing outpatient oral Augmentin therapy we will need to cover for resistant gram-positive as well as gram-negative pathogen. 2patient has been evaluated by vascular surgery and planning for debridement of the wound, surgery has been postponed patient did have a cardiac cath and this plan is status post PTCA and stenting of the right coronary artery completed on 04/29/2024 3patient local culture currently growing ESBL E. coli as well as anaerobes 4- patient did have slightly elevated ALT yesterday however is down as of yesterday no LFTs were done today 5patient is currently waiting for surgical debridement scheduled for this afternoon we will continue with Invanz patient has already got PICC line for outpatient IV antibiotic therapy and will monitor closely continue with Memo Dictation was produced using [employer] dictation software. please excuse any grammatical, word or spelling errors. Time with Patient: Less than 30
[2024-05-06 12:06] LABS: Glucose,Whole Blood 58 mg/dL (70-110)
[2024-05-06] MEDS: DEXTROSE 50% SYRINGE 50 ML IVP ONE (12:09)
--- NOTE | 2024-05-06 12:09 | P.PN ---
Subjective patient is seen for follow-up for acute kidney injury. No significant complaints today. serum creatinine at 1. yesterday. Potassium was 5.1 today. Started low-dose losartan . Objective - Vital Signs Vital signs: Vital Signs Temp 98.3 F 05/06/24 11:52 Pulse 70 05/06/24 11:52 Resp 17 05/06/24 11:52 BP 149/65 05/06/24 11:52 Pulse Ox 99 05/06/24 08:45 FiO2 Intake & Output 05/05/24 05/06/24 05/06/24 18:59 06:59 18:59 Intake Total 960 120 Output Total 900 600 Balance 60 -480 Weight 84.6 kg Intake: Oral 960 120 Output: Urine 900 600 Other: Voiding Method Toilet Toilet Bedside Commode Bedside Commode - Exam patient is awake, comfortable, no acute distress. Examination of the heart S1 and S2 Examination of the lungs bilateral breath sounds are heard Abdomen is soft nontender Examination of lower extremities shows edema trace bilaterally [employer] exam grossly intact - Labs CBC & Chem 7: 05/06/24 08:00 05/05/24 07:30 Labs: Abnormal Lab Results - Last 24 Hours (Table) 05/05/24 05/05/24 05/06/24 Range/Units 16:35 20:20 06:22 RBC (3.80-5.40) m/uL Hgb (11.4-16.0) gm/dL Hct (34.0-46.0) % MCHC (31.0-37.0) g/dL Neutrophils # (1.3-7.7) k/uL POC Glucose (mg/dL) 294 H 334 H 215 H (70-110) mg/dL 05/06/24 05/06/24 Range/Units 08:00 12:04 RBC 3.55 L (3.80-5.40) m/uL Hgb 9.1 L (11.4-16.0) gm/dL Hct 30.1 L (34.0-46.0) % MCHC 30.4 L (31.0-37.0) g/dL Neutrophils # 7.8 H (1.3-7.7) k/uL POC Glucose (mg/dL) 58 L (70-110) mg/dL Assessment and Plan Assessment: 1. Acute kidney injury secondary to ATN secondary to IV contrast exposure on April 26 and April 29, 2024, cardiac arrest, further worsened with the use of RUKHSANA inhibitor, diuretics and SGLT2 inhibitor. Baseline creatinine near 1.0. Peaked 2.6, now 1.1 . Renal US no hydronephrosis. 2. Left fifth toe infection status post amputation on antibiotics. 3. Status post PEA arrest. 4. Coronary disease status post cardiac stents with most recent stent placed to the RCA on April 29, 2024. 5. Diabetes mellitus. 6. Benign hypertension. 7. Mild lower extremity edema. Plan: monitor potassium closely as patient has been restarted on losartan. Continue with low-dose loop diuretics Low potassium diet. Repeat labs in a.m.
[2024-05-06 13:19] LABS: Glucose,Whole Blood 137 mg/dL (70-110)
[2024-05-06] MEDS: LACTATED RINGERS 1,000 ML BAG IV STA (13:39)
[2024-05-06] MEDS: IV FLUID CONTINUATION 1,000 ML IV ONE (13:40)
[2024-05-06] MEDS ORDERED: MIDAZOLAM 2 MG/2 ML VIAL ONE (13:56)
[2024-05-06] MEDS ORDERED: KETAMINE HCL IN 0.9 % NACL 50 MG/5 ML SYRINGE ONE (13:56)
[2024-05-06] MEDS ORDERED: fentaNYL (PF) 50 MCG/ML 2 ML AMP ONE (13:56)
[2024-05-06] MEDS: LIDOCAINE 1% INJ 10MG/ML (20 ML MDV) SQ ONE (14:12)
--- NOTE | 2024-05-06 14:45 | P.OP ---
Date of Procedure: 05/06/24 Preoperative Diagnosis: Left fifth toe amputation wound infection Postoperative Diagnosis: Left lateral fifth toe amputation wound measuring 5 cm x 4 cm x 3 cm in depth down to bone Procedure(s) Performed: Excisional debridement of left fifth toe amputation wound with excision of fifth toe metatarsal Negative pressure dressing placement of the left lateral foot Surgeon: Joe Haines Pathology: other (Deep wound cultures) Condition: stable Disposition: PACU Indications for Procedure: 58-year-old female with history of gangrene of the left fifth toe with previous amputation currently being treated at the hospital secondary to dehiscence and wound development of the fifth toe amputation site. She was supposed to have this procedure done previously but had a OR and required cardiac catheterization at that time and stenting. She has been doing better and prior to being discharged it was required to debride further her wound to see if we can get this to heal. Operative Findings: Significant fibrinous tissue and ischemic fat noted throughout the entirety of the wound with purulence. Exposed bone and tendon noted. Deep abscess drained Description of Procedure: After written and informed consent was obtained for the patient and all risk, benefits and complications were described the patient was brought to the operative suite and laid in a supine position. The area of the left foot was prepped and draped in usual sterile fashion after appropriate anesthetic was performed per the anesthesiologist. Timeout was performed in normal fashion and antibiotics were administered prior to surgery. Utilizing a curette, 10 blade scalpel and rongeur the ischemic tissue at the wound bed was removed down to some bleeding tissues at the superior aspect of the wound as well as the medial aspect of the wound. There was dense amount of ischemic fat noted and exposed fifth metatarsal which was taken back with a rongeur. There was some bleeding tissue noted but mostly ischemic fat was encountered with some purulent drainage. The purulent aspect of the wound and the deep abscess was cultured and sent for pathology. The area was then copiously irrigated and suctioned dry. The wound measured 5 x 4 cm with a depth down to the bone and fascia. A wound VAC was then chosen to be placed and a small sponge was placed within the wound and secured in normal fashion. The patient tolerated the procedure well and was sent to PACU for recovery.
[2024-05-06 16:13] LABS: Glucose,Whole Blood 114 mg/dL (70-110)
[2024-05-06 20:45] LABS: Glucose,Whole Blood 304 mg/dL (70-110)
[2024-05-07 06:01] LABS: Glucose,Whole Blood 182 mg/dL (70-110)
--- NOTE | 2024-05-07 06:07 | P.PN ---
Subjective Progress Note Date: 05/06/24 Chief Complaint: Left foot infection Patient is a 58-year-old female with known history of coronary disease status post stent placement, diabetes type 2 insulin-dependent, hypertension, asthma and history of retinitis pigmentosa, anxiety 03/05/2024: CT angiogram of the abdomen aorta with runoff showed heavily calcified bilateral lower extremity arterial vasculature involving the superficial femoral arteries and extending inferiorly to the popliteal artery to the feet is limited due to severe atherosclerotic plaque. Patient was discharged from the hospital on March [address] Ledesma. Left toe was felt will probably demarcate. With gangrene. March 28: Left fifth toe ray amputation carried out by Dr. Ledesma. Patient did not return to the office outpatient to see Dr. Ledesma on April 08. There was some odor from the amputation site. Was given 10-day course of Augmentin. Patient now presents with increasing drainage and highly sensitive area of the left foot. No fever no chills. Appetite not too good. Has been using a walker April 22: Sitting at the edge of bed. Seen earlier by Dr. Haines from vascular. Plan for local debridement and deep tissue culture on April 24. Also seen by ID. Patient IV cefepime and vancomycin. And Flagyl. Eating 100% April 23: Resting in bed. Pending debridement of wound tomorrow. Getting IV cefepime IV vancomycin. Wound culture growing E. coli. April 24: Saw the patient this morning. Resting bed. Pending debridement. On antibiotics. NPO. IV this afternoon I got a call from Dr. Ledesma vascular surgery. Patient had respiratory compromise had to be intubated. Moved to the ICU. April 25: Patient in the ICU. Yesterday when patient is given anesthesia patient had a cardiac arrest. Had to be intubated. Was shortly extubated t after. Debridement was postponed. Patient's troponin became positive. Peaked at 11.5. He is planning for a cardiac catheterization. Patient initially refused antibiotics feeling is causing her bloating. I did explain to the patient that several of the reasons for the same. Has agreed to take antibiotics. On IV heparin EKG showed ST depression and some T wave changes April 26: Underwent cardiac catheterization by Dr. Andrea Donahue this morning. It showed: Long segment of severe stenosis 80 to 90% RCA. Circumflex 30%. LAD is diffusely diseased subtotally occluded in its midportion. Severe stenosis within the stent. Cardiology decided to do a stent to be done on Monday. Also seen by the cardiothoracic team. No intervention at the present time. Left foot wound has a wound VAC in place. Currently no plans for surgical debridement. Santyl is going to be placed and probably wound VAC removed. Discussed with patient April 27: Patient due for catheterization with stent on Monday. Getting IV heparin. Some throat discomfort from intubation. Oral intake fair. IV antibiotics April 28: Stable. Sitting at the edge edge of the bed. IV heparin. No chest pain or short of breath. Tolerating diet. Discussed. On IV or ertapenem. April 29: Patient underwent a cardiac catheterization by Dr. Madrid. Stent was placed to the RCA. Further evaluation with possible stress testing will be done for the LAD lesion. Patient resting in bed. No chest pain or shortness of breath. April 30: No chest pain. Lisinopril has been held. PICC line planned per ID. Also been started on Farxiga. Creatinine bumped to 2.61. Discussed with Dr. Woo. Will hold off Entresto and Aldactone for now. Will do strict I's and O's. Consult nephrology. Suspect contrast-induced nephropathy. May 01: Comfortable. Creatinine improved to 1.58 today. Making good urine. Being followed by nephrology. Farxiga was discontinued. IV fluids discontinued by nephrology. Amlodipine was added. Discussed with patient. Follow May 02: Comfortable. No chest pain. Creatinine down to 1.39. Pending PICC line for outpatient antibiotics. Discussed with patient. Farxiga added by cardiology May 03: Sitting up. Comfortable. Did get a PICC line. Spoke to Dr. Haines from vascular. He can schedule the patient for debridement on Monday. Patient does not want to leave before that. Will continue with current treatment plan. May 04: Blood pressure running high. Increase amlodipine to 10 mg. Extra 5 mg given today. LFTs are up with AST 147 ALT 521-will hold off Lipitor till starts coming down May 05: Blood pressure better. No chest pain. LFTs have started to come down. Nurse informed me that patient had not been getting her Lipitor. This could be an ischemic liver in that case. Will follow. Patient due for debridement of the foot tomorrow. 05/06/2024 Patient is seen in follow-up today Review of systems: Constitutional: No reports of fatigue, fever, or chills Cardiovascular: No reports of chest pain or palpitations Respiratory: No reports of shortness of breath or cough GI: No reports of nausea, vomiting, or diarrhea : No reports of dysuria or retention Neurovascular: No reports of weakness or numbness All medications have been reviewed Active Medications Acetaminophen (Acetaminophen Tab 325 Mg Tab) 650 mg PO Q6HR PRN PRN Reason: Mild Pain or Fever > 100.5 Last Admin: 05/04/24 21:17 Dose: 650 mg Al Hydroxide/Mg Hydroxide (Mag Hydrox/Al Hydrox/Simeth 30 Ml Cup) 30 ml PO Q4HR PRN PRN Reason: Heartburn Last Admin: 05/01/24 20:48 Dose: 30 ml Albuterol Sulfate (Albuterol Hfa Inhaler) 2 puff INHALATION RT-Q6H PRN PRN Reason: Shortness Of Breath Alprazolam (Alprazolam 0.25 Mg Tab) 0.25 mg PO Q6HR PRN PRN Reason: Mild Anxiety Last Admin: 05/02/24 20:23 Dose: 0.25 mg Alprazolam (Alprazolam 0.5 Mg Tab) 0.5 mg PO Q6HR PRN PRN Reason: Moderate Anxiety Last Admin: 05/05/24 09:25 Dose: 0.5 mg Amlodipine Besylate (Amlodipine 10 Mg Tab) 10 mg PO DAILY [facility] Last Admin: 05/05/24 09:22 Dose: 10 mg Aspirin (Aspirin 81 Mg) 81 mg PO DAILY [facility] Last Admin: 05/05/24 09:21 Dose: 81 mg Calcium Carbonate/Glycine (Calcium Carbonate 500 Mg Chewable) 1,000 mg PO Q4HR PRN PRN Reason: Dyspepsia Last Admin: 04/24/24 09:14 Dose: 1,000 mg Clopidogrel Bisulfate (Clopidogrel 75 Mg Tab) 75 mg PO DAILY [facility] Last Admin: 05/05/24 09:22 Dose: 75 mg Collagenase (Collagenase 250 Unit/Gm Ointment 30 Gm Tube) 1 applic TOPICAL DAILY [facility]; Protocol Last Admin: 05/05/24 09:23 Dose: 1 applic Dapagliflozin (Dapagliflozin Propanediol 10 Mg Tablet) 10 mg PO DAILY [facility] Last Admin: 05/05/24 09:21 Dose: 10 mg Famotidine (Famotidine 20 Mg Tab) 20 mg PO DAILY [facility] Last Admin: 05/05/24 09:21 Dose: 20 mg Furosemide (Furosemide 20 Mg Tab) 20 mg PO DAILY [facility] Last Admin: 05/05/24 09:21 Dose: 20 mg Gabapentin (Gabapentin 100 Mg Cap) 100 mg PO TID [facility] Last Admin: 05/05/24 09:21 Dose: 100 mg Hydromorphone HCl (Hydromorphone 0.5 Mg/0.5 Ml Syringe) 0.5 mg IVP Q3HR PRN PRN Reason: Moderate Pain (Scale 4 to 6) Last Admin: 04/24/24 21:18 Dose: 0.5 mg Hydromorphone HCl (Hydromorphone 1 Mg/Ml 1 Ml Syringe) 1 mg IVP Q3HR PRN PRN Reason: Severe Pain (Scale 7 to 10) Ertapenem 1 gm/ Sodium (Chloride) 50 mls @ 100 mls/hr IVPB DAILY [facility]; Protocol Last Admin: 05/05/24 12:00 Dose: 100 mls/hr Insulin Aspart (Insulin Aspart (Novolog) 100 Unit/Ml Vial) 0 unit SQ ACHS [facility]; Protocol Last Admin: 05/05/24 12:00 Dose: 6 unit Insulin Detemir (Insulin Detemir (Levemir) 100 Unit/Ml Syr) 30 unit SQ HS [facility] Last Admin: 05/04/24 20:45 Dose: 30 unit Insulin Human Regular (Insulin Regular 100 Unit/Ml Vial (Iv)) 30 unit SQ 0700,2100 [facility] Last Admin: 05/05/24 06:25 Dose: Not Given Lactulose (Lactulose 20 Gm/30 Ml Cup) 20 gm PO DAILY PRN PRN Reason: Constipation Last Admin: 04/28/24 08:25 Dose: 20 gm Lorazepam (Lorazepam 0.5 Mg Tab) 0.5 mg PO Q6HR PRN PRN Reason: Anxiety Last Admin: 04/25/24 03:31 Dose: 0.5 mg Losartan Potassium (Losartan 25 Mg Tab) 12.5 mg PO DAILY [facility] Last Admin: 05/05/24 09:21 Dose: 12.5 mg Melatonin (Melatonin 3 Mg Tablet) 3 mg PO HS PRN PRN Reason: Insomnia Metoprolol Succinate (Metoprolol Succinate (Er) 25 Mg Tab.Er.24h) 25 mg PO DAILY [facility] Last Admin: 05/05/24 09:21 Dose: 25 mg Naloxone HCl (Naloxone 0.4 Mg/Ml 1 Ml Vial) 0.2 mg IV Q2M PRN PRN Reason: Opioid Reversal Nitroglycerin (Nitroglycerin Sl Tabs 0.4 Mg Tab) 0.4 mg SUBLINGUAL Q5M PRN PRN Reason: Chest Pain Ondansetron HCl (Ondansetron 4 Mg/2 Ml Vial) 4 mg IVP Q8HR PRN PRN Reason: Nausea And Vomiting Last Admin: 04/29/24 11:43 Dose: 4 mg Zolpidem Tartrate (Zolpidem 5 Mg Tab) 5 mg PO HS PRN PRN Reason: Insomnia Social history: Lives alone. No alcohol. Patient smoked 1 pack a day from 1983 through 9897. On examination: VITAL SIGNS: 97.6, 72, 17, 137.61, 99% room air GENERAL APPEARANCE: Sitting in bed, comfortable HEENT: Normal external appearance of nose and ear. Oral cavity normal EYES: Pupils equal. Conjunctiva normal. NECK: JVD not raised. Mass not palpable. RESPIRATORY: Respiratory effort normal. Lungs clear to auscultation. CARDIOVASCULAR: First and second sounds normal. No edema. ABDOMEN: Soft. Liver and spleen not palpable. No tenderness. No mass palpable. PSYCHIATRY: Alert and oriented x3. Mood and affect normal. EXTREMITIES: Left foot in a dressing INVESTIGATIONS, reviewed in the clinical context: May 05: Potassium 5.1 BUN 28 creatinine 1.14 AST 74 ALT 378 May 04: White count 10.2 hemoglobin 8.4 potassium 5.2 creatinine 1.0 AST 147 ALT 521 May 03: Potassium 5.3 BUN 32 creatinine 1.2 May 02: Sodium 136 potassium 5.1 BUN 36 creatinine 1.39 May 01: Sodium 135 potassium 5 BUN 41 creatinine 1.58 April 30: White count 9.8 hemoglobin 7.8 potassium 4.7 BUN 46 creatinine 2.61 April 29: White count 10.8 hemoglobin 9.2 potassium 4.3 creatinine 1.05 April 28: White count 10.9 hemoglobin 8.4 iron 20 TIBC 272% saturation 7.35 Troponin I-3.2, 11.5 April 21: White count 10.2 hemoglobin 8.8 platelets 404 April 20: Sodium 132 potassium 5.3 BUN 26 creatinine 1.0 Previous testing Hemoglobin 8.[address]ogram: [February 2022] heavily calcified bilateral lower extremity arterial vasculature involving the superficial femoral arteries. Extending inferiorly. Extending into the femoral artery then is limited due to severe atherosclerotic plaque. Multiple areas of high-grade stenosis. Assessment: -Acute left fifth toe dry gangrene and diabetic foot infection, secondary to diabetes and PAD, leading to left fifth toe amputation ray on March [address] Ledesma Return to see Dr. Ledesma in the office on April 08 with some drainage and being to have an order follow-up. Discharged on 10 days of Augmentin. Now presents with worsening local area with drainage and odor increased yesterday. -Ischemic cardiomyopathy EF 35 to 40% -Acute non-Q wave CA. Troponin peaked at 11.5, status post cardiac catheterization on April 29 with stenting to the RCA. There is a lesion noted to the LAD and outpatient follow-up -Acute kidney injury likely contrast-induced nephropathy. Patient has had a chest CT, to cardiac catheterization.: Improving -Severe triple-vessel coronary artery disease per cardiac catheterization -Acute hepatitis, could have been ischemic: improving -Severe peripheral arterial disease -Diabetes type 2 insulin-dependent uncontrolled, A1c level 9.6 -Iron deficiency anemia -Coronary disease with history of stent placement -Essential hypertension -Intermittent asthma, not in exacerbation -Retinitis pigmentosa with loss of peripheral vision -Obesity with a BMI of 31.3 -Anxiety -GI prophylaxis -DVT prophylaxis -Full code Plan: Patient is currently n.p.o. and scheduled to undergo debridement of the left foot with surgery today Continue monitoring Accu-Cheks before meals and at bedtime and adjust insulins accordingly Follow-up on repeat labs and monitor LFTs Patient is hoping to be discharged on 05/07/2024. Will currently be waiting deep tissue cultures and will discuss further with infectious disease regarding discharge planning. Patient does have a PICC line and will require IV antibiotics on discharge. Will discuss further with case management regarding discharge planning. Due to multiple complex medical issues, overall prognosis is guarded The impression and plan of care has been dictated by Tarah Aguilar, Nurse Practitioner as directed. Dr. Neena MD I have performed a history and examination and MDM of this patient, discussed the same with the dictator, and agree with the dictator's assessment and plan as written ,documented as a scribe. Based on total visit time, I have performed more than 50% of the visit. Objective - Vital Signs Vital signs: Vital Signs Temp 98.0 F 05/06/24 08:45 Pulse 71 05/06/24 08:45 Resp 17 05/06/24 08:45 BP 145/65 05/06/24 08:45 Pulse Ox 99 05/06/24 08:45 FiO2 Intake & Output 05/05/24 05/06/24 05/06/24 18:59 06:59 18:59 Intake Total 960 120 Output Total 900 600 Balance 60 -480 Weight 84.6 kg Intake: Oral 960 120 Output: Urine 900 600 Other: Voiding Method Toilet Toilet Bedside Commode Bedside Commode - Labs CBC & Chem 7: 05/06/24 08:00 05/05/24 07:30 Labs: Abnormal Lab Results - Last 24 Hours (Table) 05/05/24 05/05/24 05/05/24 Range/Units 11:55 16:35 20:20 RBC (3.80-5.40) m/uL Hgb (11.4-16.0) gm/dL Hct (34.0-46.0) % MCHC (31.0-37.0) g/dL Neutrophils # (1.3-7.7) k/uL POC Glucose (mg/dL) 248 H 294 H 334 H (70-110) mg/dL 05/06/24 05/06/24 Range/Units 06:22 08:00 RBC 3.55 L (3.80-5.40) m/uL Hgb 9.1 L (11.4-16.0) gm/dL Hct 30.1 L (34.0-46.0) % MCHC 30.4 L (31.0-37.0) g/dL Neutrophils # 7.8 H (1.3-7.7) k/uL POC Glucose (mg/dL) 215 H (70-110) mg/dL
[2024-05-07 10:48] LABS: African American GFR (CKD) 48 (>60 ml/min/1.73 sqM); Anion Gap 5 mmol/L; Blood Urea Nitrogen 31 mg/dL (7-17); Calcium 8.8 mg/dL (8.4-10.2); Carbon Dioxide 30 mmol/L (22-30); Chloride 101 mmol/L (98-107); Glucose 150 mg/dL (74-99); Magnesium 1.7 mg/dL (1.6-2.3); Non-African American GFR(CKD) 42 (>60 ml/min/1.73 sqM); Potassium 5.1 mmol/L (3.5-5.1); Sodium 136 mmol/L (137-145)
[2024-05-07 11:01] LABS: Basophils % (A) 0 %; Eosinophils # (A) 0.2 k/uL (0-0.7); Eosinophils % (A) 2 %; HGB 8.5 gm/dL (11.4-16.0); Hypochromasia Marked; Lymphocytes % (A) 11 %; MCHC 29.5 g/dL (31.0-37.0); MCV 84.7 fL (80.0-100.0); Mean Platelet Volume 7.8; Monocytes # (A) 0.5 k/uL (0-1.0); Monocytes % (A) 5 %; Neutrophils # (A) 7.6 k/uL (1.3-7.7); Neutrophils % (A) 80 %; Platelet Count 407 k/uL (150-450); RBC 3.42 m/uL (3.80-5.40); RDW 15.2 % (11.5-15.5); WBC 9.5 k/uL (3.8-10.6)
[2024-05-07 11:35] LABS: Glucose,Whole Blood 163 mg/dL (70-110)
--- NOTE | 2024-05-07 11:41 | P.PN ---
Subjective Progress Note Date: 05/07/24 Principal diagnosis: Nonhealing, infected left foot wound She is seen and examined today as a follow-up. Yesterday she underwent excisional debridement of fifth toe amputation site with wound VAC placement. Patient states she is doing well today. She has been afebrile. No chest pain or shortness of breath. Patient tolerated anesthesia fine according to patient. Deep tissue cultures were obtained and currently pending. Patient has PICC line present. Final blood cultures with no growth. Objective - Vital Signs Vital signs: Vital Signs Temp 97.8 F 05/07/24 04:00 Pulse 72 05/07/24 04:00 Resp 16 05/07/24 04:00 BP 130/59 05/07/24 04:00 Pulse Ox 96 05/07/24 04:00 FiO2 Intake & Output 05/06/24 05/07/24 05/07/24 18:59 06:59 18:59 Intake Total 500 100 Output Total 5 1700 Balance 495 -1600 Weight 82.7 kg Intake: IV 500 Oral 100 Output: Urine 1700 Estimated Blood Loss 5 Other: Voiding Method Toilet Toilet Bedside Commode Bedside Commode # Voids 2 - Exam General appearance: The patient is alert, oriented, appears in no acute distress. HET: Head is normocephalic and atraumatic. Neck: Supple. Abdomen: Soft, nondistended. Extremities: Left foot with wound VAC in place with good suction. Neurological: No focal deficits. Alert and oriented. - Labs CBC & Chem 7: 05/07/24 09:49 05/07/24 09:49 Labs: Abnormal Lab Results - Last 24 Hours (Table) 05/06/24 05/06/24 05/06/24 Range/Units 12:04 13:16 16:11 POC Glucose (mg/dL) 58 L 137 H 114 H (70-110) mg/dL 05/06/24 05/07/24 Range/Units 20:43 05:59 POC Glucose (mg/dL) 304 H 182 H (70-110) mg/dL Microbiology - Last 24 Hours (Table) 05/06/24 14:25 Gram Stain - Preliminary Foot - Left Assessment and Plan Assessment: 1. Infected left fifth toe amputation site status post excisional debridement with wound VAC placement 2. Left fifth toe amputation 03/28/2024 for gangrene 3. Diabetes mellitus 4. Medication noncompliance, patient is refusing ordered medications during her hospitalization including her insulin in IV antibiotics 5. Hyperglycemia 6. Brief PEA cardiac arrest with CPR initiated, likely secondary to anesthesia induction 7. Coronary artery disease, three-vessel coronary artery disease with severe stenosis involving large dominant right coronary artery and LAD Plan: 1. Continue symptomatic and supportive care 2. Continue IV antibiotics per recommendations from infectious disease 3. Resume Plavix 4. Wound VAC to left fifth toe amputation site change Fridays 5. Recommend outpatient wound care through wound clinic, patient currently following through wound clinic in [place] but may decide to go to [place] 6. Rest of medical management per primary medical team 7. Discussed importance of medication compliance for blood sugar control and role it plays in peripheral vascular disease, as well as healing of wound and prevention of requiring further amputation. Patient verbalized understanding. Thank you for this consultation, patient is cleared from vascular surgery for discharge. The impression and plan of care has been dictated as directed. Dr. Haines I performed a history and examination of this patient, discussed the same with the dictator. I agree with the dictator's note ,documented as a scribe. Any additional findings or plans will be noted.
--- NOTE | 2024-05-07 12:11 | P.PN ---
Subjective Progress Note Date: 05/07/24 Principal diagnosis: Left diabetic foot ulcer/for surgical infection Patient is a 58-year-old female with a past medical history significant for diabetes mellitus hypertension hyperlipidemia [place] recently admitted to hospital with back left fifth toe gangrene diabetic foot infection in this patient who is status post left fifth toe amputation on 03/29/2024, presenting back to the hospital worsening wound to the left fifth toe amputation site with some discoloration.Patient is status post PTCA and stent of the long segment mid right coronary artery completed on 04/29/2024, patient is status post Excisional debridement of left fifth toe amputation wound with excision of fifth toe metatarsal along with cultures which are pending. On today's evaluation that is 05/07/2024,the patient denies any fever or any chills, patient is breathing comfortably on room air, the patient denies chest pain shortness of breath and no significant cough, patient denies abdominal pain , no nausea vomiting or diarrhea. Patient denies any worsening pain to the left foot wound area. Patient white count is 9.5 creatinine is 1.38 OR cultures currently pending Objective - Vital Signs Vital signs: Vital Signs Temp 97.8 F 05/07/24 04:00 Pulse 72 05/07/24 04:00 Resp 16 05/07/24 04:00 BP 130/59 05/07/24 04:00 Pulse Ox 96 05/07/24 04:00 FiO2 Intake & Output 05/06/24 05/07/24 05/07/24 18:59 06:59 18:59 Intake Total 500 100 Output Total 5 1700 Balance 495 -1600 Weight 82.7 kg Intake: IV 500 Oral 100 Output: Urine 1700 Estimated Blood Loss 5 Other: Voiding Method Toilet Toilet Bedside Commode Bedside Commode # Voids 2 - Exam GENERAL DESCRIPTION: Middle-aged female lying in bed in no distress RESPIRATORY SYSTEM: Unlabored breathing , decreased breath sounds at bases HEART: S1 S2 regular rate and rhythm , ABDOMEN: Soft , no tenderness EXTREMITIES: Left foot lateral border wound covered with a wound VAC - Labs CBC & Chem 7: 05/07/24 09:49 05/07/24 09:49 Labs: Abnormal Lab Results - Last 24 Hours (Table) 05/06/24 05/06/24 05/06/24 Range/Units 13:16 16:11 20:43 RBC (3.80-5.40) m/uL Hgb (11.4-16.0) gm/dL Hct (34.0-46.0) % MCHC (31.0-37.0) g/dL Sodium (137-145) mmol/L BUN (7-17) mg/dL Creatinine (0.52-1.04) mg/dL Glucose (74-99) mg/dL POC Glucose (mg/dL) 137 H 114 H 304 H (70-110) mg/dL 05/07/24 05/07/24 05/07/24 Range/Units 05:59 09:49 09:49 RBC 3.42 L (3.80-5.40) m/uL Hgb 8.5 L (11.4-16.0) gm/dL Hct 29.0 L (34.0-46.0) % MCHC 29.5 L (31.0-37.0) g/dL Sodium 136 L (137-145) mmol/L BUN 31 H (7-17) mg/dL Creatinine 1.38 H (0.52-1.04) mg/dL Glucose 150 H (74-99) mg/dL POC Glucose (mg/dL) 182 H (70-110) mg/dL 05/07/24 Range/Units 11:32 RBC (3.80-5.40) m/uL Hgb (11.4-16.0) gm/dL Hct (34.0-46.0) % MCHC (31.0-37.0) g/dL Sodium (137-145) mmol/L BUN (7-17) mg/dL Creatinine (0.52-1.04) mg/dL Glucose (74-99) mg/dL POC Glucose (mg/dL) 163 H (70-110) mg/dL Microbiology - Last 24 Hours (Table) 05/06/24 14:25 Gram Stain - Preliminary Foot - Left Assessment and Plan (1) Left foot infection Current Visit: Yes Status: Acute Code(s): L08.9 - LOCAL INFECTION OF THE SKIN AND SUBCUTANEOUS TISSUE, UNSP SNOMED Code(s): 353020824 (2) Allergy to multiple antibiotics Current Visit: No Status: Acute Code(s): Z88.1 - ALLERGY STATUS TO OTHER ANTIBIOTIC AGENTS SNOMED Code(s): 963579588 (3) Cellulitis of left foot Current Visit: No Status: Acute Code(s): L03.116 - CELLULITIS OF LEFT LOWER LIMB SNOMED Code(s): 61631183778655457 Plan: 1patient with a left fifth toe diabetic foot wound and this patient was status post amputation of the left fifth toe now with evidence of nonhealing wound to the left fifth amputation site and some gangrene failing outpatient oral Augmentin therapy we will need to cover for resistant gram-positive as well as gram-negative pathogen. 2patient has been evaluated by vascular surgery and planning for debridement of the wound, surgery has been postponed patient did have a cardiac cath and this plan is status post PTCA and stenting of the right coronary artery completed on 04/29/2024 3patient local culture currently growing ESBL E. coli as well as anaerobes 4- patient is status post surgical debridement and excision of the fifth metatarsal cultures currently pending patient has been insisting on going home may consider discharge on Invanz on the basis of previous culture however antibiotic may need to be adjusted this was explained both to the patient as well as case consultant who is working on discharge and close outpatient follow-up Dictation was produced using [employer] dictation software. please excuse any gra mmatical, word or spelling errors. Time with Patient: Less than 30
--- NOTE | 2024-05-07 13:20 | P.PN ---
Subjective patient is seen for follow-up for acute kidney injury. No significant complaints today. status post debridement of left fifth toe amputation wound on 05/06/2024. Serum creatinine increased to 1.3 today. Patient has been voiding well. Blood pressure has not been low. Objective - Vital Signs Vital signs: Vital Signs Temp 98.5 F 05/07/24 12:10 Pulse 76 05/07/24 12:10 Resp 17 05/07/24 12:10 BP 130/60 05/07/24 12:10 Pulse Ox 97 05/07/24 12:10 FiO2 Intake & Output 05/06/24 05/07/24 05/07/24 18:59 06:59 18:59 Intake Total 500 100 Output Total 5 1700 Balance 495 -1600 Weight 82.7 kg Intake: IV 500 Oral 100 Output: Urine 1700 Estimated Blood Loss 5 Other: Voiding Method Toilet Toilet Bedside Commode Bedside Commode # Voids 2 - Exam patient is awake, comfortable, no acute distress. Examination of the heart S1 and S2 Examination of the lungs bilateral breath sounds are heard Abdomen is soft nontender Examination of lower extremities shows edema trace bilaterally GLOVE FORMER exam grossly intact - Labs CBC & Chem 7: 05/07/24 09:49 05/07/24 09:49 Labs: Abnormal Lab Results - Last 24 Hours (Table) 05/06/24 05/06/24 05/06/24 Range/Units 13:16 16:11 20:43 RBC (3.80-5.40) m/uL Hgb (11.4-16.0) gm/dL Hct (34.0-46.0) % MCHC (31.0-37.0) g/dL Sodium (137-145) mmol/L BUN (7-17) mg/dL Creatinine (0.52-1.04) mg/dL Glucose (74-99) mg/dL POC Glucose (mg/dL) 137 H 114 H 304 H (70-110) mg/dL 05/07/24 05/07/24 05/07/24 Range/Units 05:59 09:49 09:49 RBC 3.42 L (3.80-5.40) m/uL Hgb 8.5 L (11.4-16.0) gm/dL Hct 29.0 L (34.0-46.0) % MCHC 29.5 L (31.0-37.0) g/dL Sodium 136 L (137-145) mmol/L BUN 31 H (7-17) mg/dL Creatinine 1.38 H (0.52-1.04) mg/dL Glucose 150 H (74-99) mg/dL POC Glucose (mg/dL) 182 H (70-110) mg/dL 05/07/24 Range/Units 11:32 RBC (3.80-5.40) m/uL Hgb (11.4-16.0) gm/dL Hct (34.0-46.0) % MCHC (31.0-37.0) g/dL Sodium (137-145) mmol/L BUN (7-17) mg/dL Creatinine (0.52-1.04) mg/dL Glucose (74-99) mg/dL POC Glucose (mg/dL) 163 H (70-110) mg/dL Microbiology - Last 24 Hours (Table) 05/06/24 14:25 Gram Stain - Preliminary Foot - Left Assessment and Plan Assessment: 1. Acute kidney injury secondary to ATN secondary to IV contrast exposure on April 26 and April 29, 2024, cardiac arrest, further worsened with the use of RUKHSANA inhibitor, diuretics and SGLT2 inhibitor. Baseline creatinine near 1.0. Peaked 2.6. serum creatinine increased slightly with initiation of Cozaar. Continue to monitor for now. . Renal US no hydronephrosis. 2. Left fifth toe infection status post amputation on antibiotics. 3. Status post PEA arrest. 4. Coronary disease status post cardiac stents with most recent stent placed to the RCA on April 29, 2024. 5. Diabetes mellitus. 6. Benign hypertension. 7. Mild lower extremity edema. Plan: May continue with low-dose Cozaar for now. Serum creatinine has increased slightly. Continue with low-dose loop diuretics Low potassium diet. Repeat labs in a.m.
[2024-05-07 16:24] LABS: Glucose,Whole Blood 304 mg/dL (70-110)
[2024-05-07 19:49] LABS: Glucose,Whole Blood 190 mg/dL (70-110)
--- NOTE | 2024-05-08 05:41 | P.PN ---
Subjective Progress Note Date: 05/07/24 Chief Complaint: Left foot infection Patient is a 58-year-old female with known history of coronary disease status post stent placement, diabetes type 2 insulin-dependent, hypertension, asthma and history of retinitis pigmentosa, anxiety 03/05/2024: CT angiogram of the abdomen aorta with runoff showed heavily calcified bilateral lower extremity arterial vasculature involving the superficial femoral arteries and extending inferiorly to the popliteal artery to the feet is limited due to severe atherosclerotic plaque. Patient was discharged from the hospital on March [address] Ledesma. Left toe was felt will probably demarcate. With gangrene. March 28: Left fifth toe ray amputation carried out by Dr. Ledesma. Patient did not return to the office outpatient to see Dr. Ledesma on April 08. There was some odor from the amputation site. Was given 10-day course of Augmentin. Patient now presents with increasing drainage and highly sensitive area of the left foot. No fever no chills. Appetite not too good. Has been using a walker April 22: Sitting at the edge of bed. Seen earlier by Dr. Haines from vascular. Plan for local debridement and deep tissue culture on April 24. Also seen by ID. Patient IV cefepime and vancomycin. And Flagyl. Eating 100% April 23: Resting in bed. Pending debridement of wound tomorrow. Getting IV cefepime IV vancomycin. Wound culture growing E. coli. April 24: Saw the patient this morning. Resting bed. Pending debridement. On antibiotics. NPO. IV this afternoon I got a call from Dr. Ledesma vascular surgery. Patient had respiratory compromise had to be intubated. Moved to the ICU. April 25: Patient in the ICU. Yesterday when patient is given anesthesia patient had a cardiac arrest. Had to be intubated. Was shortly extubated t after. Debridement was postponed. Patient's troponin became positive. Peaked at 11.5. He is planning for a cardiac catheterization. Patient initially refused antibiotics feeling is causing her bloating. I did explain to the patient that several of the reasons for the same. Has agreed to take antibiotics. On IV heparin EKG showed ST depression and some T wave changes April 26: Underwent cardiac catheterization by Dr. Andrea Donahue this morning. It showed: Long segment of severe stenosis 80 to 90% RCA. Circumflex 30%. LAD is diffusely diseased subtotally occluded in its midportion. Severe stenosis within the stent. Cardiology decided to do a stent to be done on Monday. Also seen by the cardiothoracic team. No intervention at the present time. Left foot wound has a wound VAC in place. Currently no plans for surgical debridement. Santyl is going to be placed and probably wound VAC removed. Discussed with patient April 27: Patient due for catheterization with stent on Monday. Getting IV heparin. Some throat discomfort from intubation. Oral intake fair. IV antibiotics April 28: Stable. Sitting at the edge edge of the bed. IV heparin. No chest pain or short of breath. Tolerating diet. Discussed. On IV or ertapenem. April 29: Patient underwent a cardiac catheterization by Dr. Madrid. Stent was placed to the RCA. Further evaluation with possible stress testing will be done for the LAD lesion. Patient resting in bed. No chest pain or shortness of breath. April 30: No chest pain. Lisinopril has been held. PICC line planned per ID. Also been started on Farxiga. Creatinine bumped to 2.61. Discussed with Dr. Woo. Will hold off Entresto and Aldactone for now. Will do strict I's and O's. Consult nephrology. Suspect contrast-induced nephropathy. May 01: Comfortable. Creatinine improved to 1.58 today. Making good urine. Being followed by nephrology. Farxiga was discontinued. IV fluids discontinued by nephrology. Amlodipine was added. Discussed with patient. Follow May 02: Comfortable. No chest pain. Creatinine down to 1.39. Pending PICC line for outpatient antibiotics. Discussed with patient. Farxiga added by cardiology May 03: Sitting up. Comfortable. Did get a PICC line. Spoke to Dr. Haines from vascular. He can schedule the patient for debridement on Monday. Patient does not want to leave before that. Will continue with current treatment plan. May 04: Blood pressure running high. Increase amlodipine to 10 mg. Extra 5 mg given today. LFTs are up with AST 147 ALT 521-will hold off Lipitor till starts coming down May 05: Blood pressure better. No chest pain. LFTs have started to come down. Nurse informed me that patient had not been getting her Lipitor. This could be an ischemic liver in that case. Will follow. Patient due for debridement of the foot tomorrow. 05/07/2024 Patient is seen in follow-up today status post debridement of the left foot with vascular surgery and maintained on antibiotics with infectious disease following as well. Patient currently has a wound VAC applied and will need 1 on discharge with case management following and has submitted for approval which is currently pending. Patient does have a PICC line and will continue on current medications per ID recommendations and will adjust accordingly once repeat cultures have finalized. Patient is afebrile with no reports of chest pain or shortness of breath. Patient would like to go home and home care is being arranged. Possible discharge planning in the next 24 hours if wound VAC is approved. Review of systems: Constitutional: No reports of fatigue, fever, or chills Cardiovascular: No reports of chest pain or palpitations Respiratory: No reports of shortness of breath or cough GI: No reports of nausea, vomiting, or diarrhea : No reports of dysuria or retention Neurovascular: No reports of weakness or numbness All medications have been reviewed Physical exam: Gen: This is a 58-year-old female who is awake, alert and oriented x 3, well- developed, elderly appearing, ill-appearing, obese HEENT: Head is atraumatic, normocephalic. Pupils equal, round. Sclerae is anicteric. NECK: Supple. No JVD. No lymphadenopathy. No thyromegaly. LUNGS: Clear to auscultation. No wheezes or rhonchi. No intercostal retractions. HEART: Regular rate and rhythm. No murmur. ABDOMEN: Soft. Bowel sounds are present. No masses. No tenderness. EXTREMITIES: No pedal edema. No calf tenderness. Left lower extremity surgical dressing is dry and intact, wound VAC noted with good suction to the left foot NEUROLOGICAL: Patient is awake, alert and oriented x2-3, baseline. Cranial nerves 2 through 12 are grossly intact. Diffusely weak Assessment: -Acute left fifth toe dry gangrene and diabetic foot infection, secondary to diabetes and PAD, leading to left fifth toe amputation ray on March [address] Ledesma Return to see Dr. Ledesma in the office on April 08 with some drainage and being to have an order follow-up. Discharged on 10 days of Augmentin. Now presents with worsening local area with drainage and odor increased. Status post debridement with wound VAC application on 05/06/2024 -Ischemic cardiomyopathy EF 35 to 40% -Acute non-Q wave [place]. Troponin peaked at 11.5, status post cardiac catheterization on April 29 with stenting to the RCA. There is a lesion noted to the LAD and outpatient follow-up -Acute kidney injury likely contrast-induced nephropathy. Patient has had a chest CT, to cardiac catheterization.: Improving -Severe triple-vessel coronary artery disease per cardiac catheterization -Acute hepatitis, could have been ischemic: improving -Severe peripheral arterial disease -Diabetes type 2 insulin-dependent uncontrolled, A1c level 9.6 -Iron deficiency anemia -Coronary disease with history of stent placement -Essential hypertension -Intermittent asthma, not in exacerbation -Retinitis pigmentosa with loss of peripheral vision -Obesity with a BMI of 31.3 -Anxiety -GI prophylaxis -DVT prophylaxis -Full code Plan: Patient is status post debridement of the left foot with vascular surgery on 05/06/2024. Patient does have a wound VAC and case management following working on insurance authorization for the wound VAC as patient will be going home with home care. Authorization currently pending which is ultimately delaying the discharge Continue monitoring Accu-Cheks before meals and at bedtime and adjust insulins accordingly Follow-up on repeat labs and monitor LFTs Patient was hoping to be discharged today on 05/07/2024. currently awaiting deep tissue cultures. Cultures preliminary and infectious disease will follow and adjust medications accordingly. Patient does have a PICC line and will continue on IV antibiotics on discharge. Will follow-up with case management regarding discharge planning and if approval for the wound VAC has been obtained Due to multiple complex medical issues, overall prognosis is guarded Possible discharge in the next 24 hours The impression and plan of care has been dictated by Tarah Aguilar, Nurse Practitioner as directed. Dr. Neena MD I have performed a history and examination and MDM of this patient, discussed the same with the dictator, and agree with the dictator's assessment and plan as written ,documented as a scribe. Based on total visit time, I have performed more than 50% of the visit. Objective - Vital Signs Vital signs: Vital Signs Temp 97.8 F 05/07/24 04:00 Pulse 72 05/07/24 04:00 Resp 16 05/07/24 04:00 BP 130/59 05/07/24 04:00 Pulse Ox 96 05/07/24 04:00 FiO2 Intake & Output 07/06/2205/06/24 05/07/24 06:59 18:59 06:59 Intake Total 120 500 100 Output Total 600 5 1700 Balance -480 495 -1600 Weight 84.6 kg 82.7 kg Intake: IV 500 Oral 120 100 Output: Urine 600 1700 Estimated Blood Loss 5 Other: Voiding Method Toilet Toilet Toilet Bedside Commode Bedside Commode Bedside Commode # Voids 2 - Labs CBC & Chem 7: 05/07/24 09:49 05/07/24 09:49 Labs: Abnormal Lab Results - Last 24 Hours (Table) 05/06/24 05/06/24 05/06/24 Range/Units 06:22 08:00 12:04 RBC 3.55 L (3.80-5.40) m/uL Hgb 9.1 L (11.4-16.0) gm/dL Hct 30.1 L (34.0-46.0) % MCHC 30.4 L (31.0-37.0) g/dL Neutrophils # 7.8 H (1.3-7.7) k/uL POC Glucose (mg/dL) 215 H 58 L (70-110) mg/dL 05/06/24 05/06/24 05/06/24 Range/Units 13:16 16:11 20:43 RBC (3.80-5.40) m/uL Hgb (11.4-16.0) gm/dL Hct (34.0-46.0) % MCHC (31.0-37.0) g/dL Neutrophils # (1.3-7.7) k/uL POC Glucose (mg/dL) 137 H 114 H 304 H (70-110) mg/dL 05/07/24 Range/Units 05:59 RBC (3.80-5.40) m/uL Hgb (11.4-16.0) gm/dL Hct (34.0-46.0) % MCHC (31.0-37.0) g/dL Neutrophils # (1.3-7.7) k/uL POC Glucose (mg/dL) 182 H (70-110) mg/dL
[2024-05-08 06:01] LABS: Glucose,Whole Blood 116 mg/dL (70-110)
[2024-05-08 08:36] VITALS: RESP 17
[2024-05-08 11:14] LABS: Glucose,Whole Blood 168 mg/dL (70-110)
[2024-05-08 11:32] LABS: African American GFR (CKD) 47 (>60 ml/min/1.73 sqM); Anion Gap 7 mmol/L; Blood Urea Nitrogen 39 mg/dL (7-17); Calcium 8.7 mg/dL (8.4-10.2); Carbon Dioxide 28 mmol/L (22-30); Chloride 101 mmol/L (98-107); Glucose 169 mg/dL (74-99); Non-African American GFR(CKD) 41 (>60 ml/min/1.73 sqM); Potassium 5.1 mmol/L (3.5-5.1); Sodium 136 mmol/L (137-145)
[2024-05-08 11:47] VITALS: BP 136/65; PULSE 72; TEMP 98
--- NOTE | 2024-05-08 12:46 | P.PN ---
Subjective Progress Note Date: 05/08/24 Principal diagnosis: Left diabetic foot ulcer/for surgical infection Patient is a 58-year-old female with a past medical history significant for diabetes mellitus hypertension hyperlipidemia ND recently admitted to hospital with back left fifth toe gangrene diabetic foot infection in this patient who is status post left fifth toe amputation on 03/29/2024, presenting back to the hospital worsening wound to the left fifth toe amputation site with some discoloration.Patient is status post PTCA and stent of the long segment mid right coronary artery completed on 04/29/2024, patient is status post Excisional debridement of left fifth toe amputation wound with excision of fifth toe metatarsal along with cultures which are pending. On today's evaluation that is 05/08/2024,the patient remains to be afebrile, patient is on room air not requiring supplemental oxygen and denies any shortness of breath no chest pain or cough.Patient denies having any nausea or vomiting, no abdominal pain and no diarrhea and denies any worsening pain to the left foot wound. Patient did have a creatinine 1.40 OR culture growing gram-negative with ID sensitivities pending Objective - Vital Signs Vital signs: Vital Signs Temp 97.9 F 05/08/24 08:00 Pulse 71 05/08/24 08:00 Resp 17 05/08/24 08:00 BP 148/63 05/08/24 08:00 Pulse Ox 99 05/08/24 08:00 FiO2 Intake & Output 05/07/24 05/08/24 05/08/24 18:59 06:59 18:59 Intake Total 360 180 Output Total 750 Balance 360 -750 180 Weight 83.4 kg Intake: Oral 360 180 Output: Urine 750 Other: Voiding Method Toilet Toilet Toilet Bedside Commode Bedside Commode Bedside Commode - Exam GENERAL DESCRIPTION: Middle-aged female lying in bed in no distress RESPIRATORY SYSTEM: Unlabored breathing , decreased breath sounds at bases HEART: S1 S2 regular rate and rhythm , ABDOMEN: Soft , no tenderness EXTREMITIES: Left foot lateral border wound covered with a wound VAC - Labs CBC & Chem 7: 05/07/24 09:49 05/08/24 10:41 Labs: Abnormal Lab Results - Last 24 Hours (Table) 05/07/24 05/07/24 05/07/24 Range/Units 09:49 09:49 11:32 RBC 3.42 L (3.80-5.40) m/uL Hgb 8.5 L (11.4-16.0) gm/dL Hct 29.0 L (34.0-46.0) % MCHC 29.5 L (31.0-37.0) g/dL Sodium 136 L (137-145) mmol/L BUN 31 H (7-17) mg/dL Creatinine 1.38 H (0.52-1.04) mg/dL Glucose 150 H (74-99) mg/dL POC Glucose (mg/dL) 163 H (70-110) mg/dL 05/07/24 05/07/24 05/08/24 Range/Units 16:22 19:47 06:00 RBC (3.80-5.40) m/uL Hgb (11.4-16.0) gm/dL Hct (34.0-46.0) % MCHC (31.0-37.0) g/dL Sodium (137-145) mmol/L BUN (7-17) mg/dL Creatinine (0.52-1.04) mg/dL Glucose (74-99) mg/dL POC Glucose (mg/dL) 304 H 190 H 116 H (70-110) mg/dL Microbiology - Last 24 Hours (Table) 05/06/24 14:25 Gram Stain - Preliminary Foot - Left Wound Culture - Preliminary Gram Neg Bacilli Assessment and Plan (1) Left foot infection Current Visit: Yes Status: Acute Code(s): L08.9 - LOCAL INFECTION OF THE SKIN AND SUBCUTANEOUS TISSUE, UNSP SNOMED Code(s): 577680497 (2) Allergy to multiple antibiotics Current Visit: No Status: Acute Code(s): Z88.1 - ALLERGY STATUS TO OTHER ANTIBIOTIC AGENTS SNOMED Code(s): 915018992 (3) Cellulitis of left foot Current Visit: No Status: Acute Code(s): L03.116 - CELLULITIS OF LEFT LOWER LIMB SNOMED Code(s): 99263176030813596 Plan: 1patient with a left fifth toe diabetic foot wound and this patient was status post amputation of the left fifth toe now with evidence of nonhealing wound to the left fifth amputation site and some gangrene failing outpatient oral Augmentin therapy we will need to cover for resistant gram-positive as well as gram-negative pathogen. 2patient has been evaluated by vascular surgery and planning for debridement of the wound, surgery has been postponed patient did have a cardiac cath and this plan is status post PTCA and stenting of the right coronary artery completed on 04/29/2024 3patient local culture currently growing ESBL E. coli as well as anaerobes 4- patient is status post surgical debridement and excision of the fifth metatarsal cultures currently growing gram-negative with ID sensitivities pending patient to be discharged on Invanz, antibiotics may need to be adjusted on the basis of oral culture discussed with the case management social worker as well as the patient Dictation was produced using [employer] dictation software. please excuse any grammatical, word or spelling errors. Time with Patient: Less than 30
--- NOTE | 2024-05-08 13:14 | P.PN ---
Subjective patient is seen for follow-up for acute kidney injury. No significant complaints today. status post debridement of left fifth toe amputation wound on 05/06/2024. Serum creatinine increased to 1.4 today. Patient has been voiding well. Blood pressure has not been low. Objective - Vital Signs Vital signs: Vital Signs Temp 98.0 F 05/08/24 11:46 Pulse 72 05/08/24 11:46 Resp 17 05/08/24 11:46 BP 136/65 05/08/24 11:46 Pulse Ox 97 05/08/24 11:46 FiO2 Intake & Output 05/07/24 05/08/24 05/08/24 18:59 06:59 18:59 Intake Total 360 360 Output Total 750 Balance 360 -750 360 Weight 83.4 kg Intake: Oral 360 360 Output: Urine 750 Other: Voiding Method Toilet Toilet Toilet Bedside Commode Bedside Commode Bedside Commode - Exam patient is awake, comfortable, no acute distress. Examination of the heart S1 and S2 Examination of the lungs bilateral breath sounds are heard Abdomen is soft nontender Examination of lower extremities shows edema 1+ mostly in the left leg. MOTHER TESTER exam grossly intact - Labs CBC & Chem 7: 05/07/24 09:49 05/08/24 10:41 Labs: Abnormal Lab Results - Last 24 Hours (Table) 05/07/24 05/07/24 05/08/24 Range/Units 16:22 19:47 06:00 Sodium (137-145) mmol/L BUN (7-17) mg/dL Creatinine (0.52-1.04) mg/dL Glucose (74-99) mg/dL POC Glucose (mg/dL) 304 H 190 H 116 H (70-110) mg/dL 05/08/24 05/08/24 Range/Units 10:41 11:13 Sodium 136 L (137-145) mmol/L BUN 39 H (7-17) mg/dL Creatinine 1.40 H (0.52-1.04) mg/dL Glucose 169 H (74-99) mg/dL POC Glucose (mg/dL) 168 H (70-110) mg/dL Microbiology - Last 24 Hours (Table) 05/06/24 14:25 Gram Stain - Preliminary Foot - Left Wound Culture - Preliminary Gram Neg Bacilli Assessment and Plan Assessment: 1. Acute kidney injury secondary to ATN secondary to IV contrast exposure on April 26 and April 29, 2024, cardiac arrest, further worsened with the use of RUKHSANA inhibitor, diuretics and SGLT2 inhibitor. Baseline creatinine near 1.0. Peaked 2.6. serum creatinine increased slightly with initiation of Cozaar. Continue to monitor for now. . Renal US no hydronephrosis. 2. Left fifth toe infection status post amputation on antibiotics. 3. Status post PEA arrest. 4. Coronary disease status post cardiac stents with most recent stent placed to the RCA on April 29, 2024. 5. Diabetes mellitus. 6. Benign hypertension. 7. Mild lower extremity edema. Plan: May continue with low-dose Cozaar for now. Serum creatinine has increased slightly. hold diuretics as creatinine increased further to 1.4 today. Low potassium diet. Repeat labs in a.m.
[2024-05-09] MEDS ORDERED: amLODIPine 5 MG TAB PO SCH (09:00)
--- NOTE | 2024-05-13 10:44 | P.DS ---
Providers Date of admission: 04/20/24 20:19 Expected date of discharge: 05/08/24 Attending physician: Tyler Allen Consults: 04/20/24 20:18 Consult Physician Urgent Consulting Provider: Nandini Flynn Consult Reason/Comments: left foot infection Do you want consulting provider notified?: Yes 04/24/24 18:00 Consult Physician Routine Consulting Provider: Shahram Reeder Consult Reason/Comments: ICU management Do you want consulting provider notified?: Already Contacted 04/25/24 02:04 Consult Physician Routine Consulting Provider: Madi Madrid Consult Reason/Comments: post arrest Do you want consulting provider notified?: Yes, Notify in am 04/26/24 08:53 Consult Physician Routine Consulting Provider: Rudy Lozano Consult Reason/Comments: CAD Do you want consulting provider notified?: Yes 04/26/24 09:00 Consult Physician Routine Consulting Provider: Rudy Lozano Consult Reason/Comments: CAD Do you want consulting provider notified?: Yes 04/29/24 11:11 Consult Physician Routine Consulting Provider: [facility] Consult Reason/Comments: Post Interventional Patient Do you want consulting provider notified?: Already Contacted 04/30/24 17:44 Consult Physician Routine Consulting Provider: Dylan Ellis Consult Reason/Comments: Contrast nephropathy Do you want consulting provider notified?: Yes 05/02/24 15:56 Consult Physician Urgent Consulting Provider: Jo Ledesma Consult Reason/Comments: Reevaluate left foot wound for debridement Do you want consulting provider notified?: Yes Primary care physician: [facility] Course: Final diagnosis -Acute left fifth toe dry gangrene and diabetic foot infection, secondary to diabetes and PAD, leading to left fifth toe amputation ray on March [address] Ledesma Return to see Dr. Ledesma in the office on April 08 with some drainage and being to have an order follow-up. Discharged on 10 days of Augmentin. Now presents with worsening local area with drainage and odor increased. Status post debridement with wound VAC application on 05/06/2024 -Status post PICC line placement -Ischemic cardiomyopathy EF 35 to 40% -Acute non-Q wave AL. Troponin peaked at 11.5, status post cardiac catheterization on April 29 with stenting to the RCA. There is a lesion noted to the LAD and outpatient follow-up -Acute kidney injury likely contrast-induced nephropathy. 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 Patient will follow-up with Dr. Cortes in the outpatient setting upon discharge. Patient is to continue with IV antibiotics with a PICC line per ID recommendations with close outpatient follow-up at the wound care center along with vascular surgery as well as cardiology. Patient will continue on 6 weeks of Invanz as well as wound VAC and outpatient wound care with home care . Total time taken is greater than 35 minutes. Hospital course This is a 58-year-old female who was recently admitted with left foot infection with dry gangrene and diabetic foot secondary to extensive peripheral artery disease and diabetes. Patient did undergo left fifth toe amputation in February and had had outpatient infection with failure of outpatient treatment. Patient is status post debridement with wound VAC placement and has received a PICC line and will continue on 6 weeks of Invanz on discharge with extensive wound care and home care being arranged. Patient has been cleared by consultations for discharge. Please refer to consultation notes for further HPI. Currently no reports of chest pain, shortness of breath, or palpitations. Patient is afebrile. No reports of nausea or vomiting and patient is tolerating diet. Patient will be discharged home with home care and wound VAC today. Guarded prognosis and high risk for readmissions Physical exam: Gen: This is a 58-year-old female who is awake, alert and oriented x 3, well- developed, elderly appearing, obese HEENT: Head is atraumatic, normocephalic. Pupils equal, round. Sclerae is anicteric. NECK: Supple. No JVD. No lymphadenopathy. No thyromegaly. LUNGS: Clear to auscultation. No wheezes or rhonchi. No intercostal retractions. HEART: Regular rate and rhythm. No murmur. ABDOMEN: Soft. Obese bowel sounds are present. No masses. No tenderness. EXTREMITIES: No pedal edema. No calf tenderness. NEUROLOGICAL: Patient is awake, alert and oriented x3. Cranial nerves 2 through 12 are grossly intact. Please refer to medication reconciliation sheet for a list of medications. The impression and plan of care has been dictated by Tarah Aguilar, Nurse Practitioner as directed. Dr. Neena MD I have performed a history and examination and MDM of this patient, discussed the same with the dictator, and agree with the dictator's assessment and plan as written ,documented as a scribe. Based on total visit time, I have performed more than 50% of the visit. Patient Condition at Discharge: Fair Plan - Discharge Summary Discharge Rx Participant: No New Discharge Prescriptions: New Ertapenem [INVanz] 1 gm IVPB Q24H #42 each Dapagliflozin Propanediol [Farxiga] 10 mg PO DAILY #30 tab Furosemide [Lasix] 20 mg PO DAILY #30 tab Mag Hydrox/Al Hydrox/Simeth [Maalox] 30 ml PO Q4HR PRN ml PRN Reason: Heartburn Gabapentin [Neurontin] 100 mg PO TID #90 cap amLODIPine [Norvasc] 10 mg PO DAILY #30 tab Famotidine [Pepcid] 20 mg PO DAILY #30 tab Collagenase [Santyl Ointment] 1 applic TOPICAL DAILY #1 each Metoprolol Succinate (ER) [Toprol XL] 25 mg PO DAILY #30 tab Losartan [Cozaar] 12.5 mg PO DAILY #30 tab Nitroglycerin Sl Tabs [Nitrostat] 0.4 mg SUBLINGUAL Q5M PRN #20 tab PRN Reason: Chest Pain Calcium Carbonate [Tums] 1,000 mg PO Q4HR PRN tab PRN Reason: Dyspepsia Acetaminophen Tab [Tylenol] 650 mg PO Q6HR PRN tab PRN Reason: Mild Pain Or Fever > 100.5 Continue Aspirin EC [Ecotrin Low Dose] 81 mg PO DAILY Clopidogrel [Plavix] 75 mg PO DAILY #30 tab Albuterol Sulfate [Ventolin HFA] 2 puff INHALATION RT-Q6H PRN PRN Reason: Shortness Of Breath Changed Insulin Regular [humuLIN R] 30 units SQ BID #0 Insulin Glargine,Hum.rec.anlog [Lantus Solostar Pen] 30 units SQ HS #0 Discontinued Lisinopril/Hydrochlorothiazide [Zestoretic 20-25] 1 tab PO DAILY Metoprolol Tartrate [Lopressor] 50 mg PO BID Discharge Medication List Aspirin EC [Ecotrin Low Dose] 81 mg PO DAILY 03/03/24 [History] Albuterol Sulfate [Ventolin HFA] 2 puff INHALATION RT-Q6H PRN 04/20/24 [History] Ertapenem [INVanz] 1 gm IVPB Q24H #42 each 05/07/24 [Rx] Acetaminophen Tab [Tylenol] 650 mg PO Q6HR PRN tab 05/08/24 [Rx] Calcium Carbonate [Tums] 1,000 mg PO Q4HR PRN tab 05/08/24 [Rx] Clopidogrel [Plavix] 75 mg PO DAILY #30 tab 05/08/24 [Rx] Collagenase [Santyl Ointment] 1 applic TOPICAL DAILY #1 each 05/08/24 [Rx] Dapagliflozin Propanediol [Farxiga] 10 mg PO DAILY #30 tab 05/08/24 [Rx] Famotidine [Pepcid] 20 mg PO DAILY #30 tab 05/08/24 [Rx] Furosemide [Lasix] 20 mg PO DAILY #30 tab 05/08/24 [Rx] Gabapentin [Neurontin] 100 mg PO TID #90 cap 05/08/24 [Rx] Insulin Glargine,Hum.rec.anlog [Lantus Solostar Pen] 30 units SQ HS #0 05/08/24 [Rx] Insulin Regular [humuLIN R] 30 units SQ BID #0 05/08/24 [Rx] Losartan [Cozaar] 12.5 mg PO DAILY #30 tab 05/08/24 [Rx] Mag Hydrox/Al Hydrox/Simeth [Maalox] 30 ml PO Q4HR PRN ml 05/08/24 [Rx] Metoprolol Succinate (ER) [Toprol XL] 25 mg PO DAILY #30 tab 05/08/24 [Rx] Nitroglycerin Sl Tabs [Nitrostat] 0.4 mg SUBLINGUAL Q5M PRN #20 tab 05/08/24 [Rx] amLODIPine [Norvasc] 10 mg PO DAILY #30 tab 05/08/24 [Rx] Follow up Appointment(s)/Referral(s): Joe Haines DO [STAFF PHYSICIAN] - 3 Weeks (MondayMay 28,9:00) Dylon Cortes MD [Primary Care Provider] - 1-2 days (MondayMay 13, 1:00) [facility] [NON-STAFF] - 1 Week Nandini Flynn MD [STAFF PHYSICIAN] - 1 Week (May 20 3:45) Cristino Donahue MD [STAFF PHYSICIAN] - 1 Week (May 13, 3:00 [place]) Ambulatory/Diagnostic Orders: Basic Metabolic Panel [LAB.AMB] Location: None Selected C Reactive Protein [LAB.AMB] Location: None Selected Complete Blood Count w/diff [LAB.AMB] Location: None Selected Erythrocyte Sedimentation Rate [LAB.AMB] Location: None Selected Patient Instructions/Handouts: *Surgery [facility] - After Heart Catheterization - Automobile Glass Technician Instructions, Osteomyelitis (GEN), Negative Pressure Wound Therapy (DC) Activity/Diet/Wound Care/Special Instructions: Activity limited until follow-up Follow-up with primary care provider on discharge Follow-up with consultations outpatient in 1 to 2 weeks Continue with antibiotics per ID recommendations Continue monitoring Accu-Cheks before meals and at bedtime and keep a diary of all readings to bring with you for primary care follow-up Continue heart healthy diabetic diet Discharge Disposition: HOME WITH HOME HEALTH SERVICES
== END 2024-05-08 15:26 | disposition home health service (06) | DRG 314 ==
LOC: EC 15:47 → 4SSUR 20:19 → 2SICU 04-24 16:47 → 3SCARD 04-25 16:08
PROVIDERS: ADMIT Hospitalist; ATTEND Hospitalist
PROC: 0BH17EZ Insertion of Endotracheal Airway into Trachea, Via Natural or Artificial Opening (ICD-10-PCS; 2024-04-24)
PROC: 5A1935Z Respiratory Ventilation, Less than 24 Consecutive Hours (ICD-10-PCS; 2024-04-24)
PROC: 5A12012 Performance of Cardiac Output, Single, Manual (ICD-10-PCS; 2024-04-24)
PROC: B2111ZZ Fluoroscopy of Multiple Coronary Arteries using Low Osmolar Contrast (ICD-10-PCS; 2024-04-26)
PROC: 4A023N7 Measurement of Cardiac Sampling and Pressure, Left Heart, Percutaneous Approach (ICD-10-PCS; 2024-04-26)
PROC: B240ZZ3 Ultrasonography of Single Coronary Artery, Intravascular (ICD-10-PCS; 2024-04-29)
PROC: 027034Z Dilation of Coronary Artery, One Artery with Drug-eluting Intraluminal Device, Percutaneous Approach (ICD-10-PCS; 2024-04-29)
PROC: 05HB33Z Insertion of Infusion Device into Right Basilic Vein, Percutaneous Approach (ICD-10-PCS; 2024-05-03)
PROC: 0QBP0ZZ Excision of Left Metatarsal, Open Approach (ICD-10-PCS; principal; 2024-05-06 07:30)
DX: T87.44 Infection of amputation stump, left lower extremity (principal); D50.9 Iron deficiency anemia, unspecified; D63.8 Anemia in other chronic diseases classified elsewhere; E11.52 Type 2 diabetes mellitus with diabetic peripheral angiopathy with gangrene; E11.621 Type 2 diabetes mellitus with foot ulcer; E11.628 Type 2 diabetes mellitus with other skin complications; E11.69 Type 2 diabetes mellitus with other specified complication; E66.9 Obesity, unspecified; Z68.31 Body mass index [BMI] 31.0-31.9, adult; L03.116 Cellulitis of left lower limb; I21.4 Non-ST elevation (NSTEMI) myocardial infarction; I10 Essential (primary) hypertension; I46.9 Cardiac arrest, cause unspecified; E11.65 Type 2 diabetes mellitus with hyperglycemia; L97.524 Non-pressure chronic ulcer of other part of left foot with necrosis of bone; J45.20 Mild intermittent asthma, uncomplicated; N17.0 Acute kidney failure with tubular necrosis; M86.9 Osteomyelitis, unspecified; F41.9 Anxiety disorder, unspecified; H35.52 Pigmentary retinal dystrophy; I25.10 Atherosclerotic heart disease of native coronary artery without angina pectoris; I25.2 Old myocardial infarction; K21.9 Gastro-esophageal reflux disease without esophagitis; N14.11 Contrast-induced nephropathy; R09.02 Hypoxemia; T50.8X5A Adverse effect of diagnostic agents, initial encounter; Z79.02 Long term (current) use of antithrombotics/antiplatelets; Z79.4 Long term (current) use of insulin; B17.9 Acute viral hepatitis, unspecified; B96.20 Unspecified Escherichia coli [E. coli] as the cause of diseases classified elsewhere; I25.5 Ischemic cardiomyopathy; E78.5 Hyperlipidemia, unspecified; Z87.891 Personal history of nicotine dependence; Z53.09 Procedure and treatment not carried out because of other contraindication; Z79.82 Long term (current) use of aspirin; Z79.899 Other long term (current) drug therapy; Z88.0 Allergy status to penicillin; Z88.2 Allergy status to sulfonamides; Z60.2 Problems related to living alone; Z91.148 Patient's other noncompliance with medication regimen for other reason; Z91.199 Patient's noncompliance with other medical treatment and regimen due to unspecified reason; Z87.01 Personal history of pneumonia (recurrent); Z28.310 Unvaccinated for COVID-19
CPT/HCPCS: 36415; 36573; 71045; 71275; 76770; 80048; 80053; 80202; 81001; 82565; 83540; 83550; 83605; 83735; 84145; 84484; 85025; 85027; 85379; 85610; 85730; 86140; 87040; 87070; 87075; 87077; 87186; 87205; 92978; 93306; 93458; 96361; 96365; 96366; 96375; 99285

== ENCOUNTER 2025-02-27 08:55 | Inpatient (IN) | payer MEDICARE, OTHER ==
--- NOTE | 2025-02-27 10:16 | ED ---
General Adult HPI - General Chief complaint: Wound/Laceration Stated complaint: L Foot Big Toe Time Seen by Provider: 02/27/25 09:33 Source: patient, RN notes reviewed Mode of arrival: ambulatory Limitations: no limitations - History of Present Illness Initial comments: 59-year-old female presents emergency department complaint of left foot infection. Patient states she had a prior imitation of her fifth digit states that she started having infection center yesterday and advised to come the emergency department. Patient states she did not present yesterday but comes today for admission as directed. Patient denies any fevers or chills she states her blood sugar has been elevated patient has known peripheral vascular disease and has seen vascular in the past. - Related Data Home Medications Medication Instructions Recorded Confirmed Aspirin EC [Ecotrin Low Dose] 81 mg PO DAILY 03/03/24 04/20/24 Albuterol Sulfate [Ventolin HFA] 2 puff INHALATION RT-Q6H PRN 04/20/24 04/20/24 Previous Rx's Medication Instructions Recorded Ertapenem [INVanz] 1 gm IVPB Q24H #42 each 05/07/24 Acetaminophen Tab [Tylenol] 650 mg PO Q6HR PRN tab 05/08/24 Calcium Carbonate [Tums] 1,000 mg PO Q4HR PRN tab 05/08/24 Clopidogrel [Plavix] 75 mg PO DAILY #30 tab 05/08/24 Collagenase [Santyl Ointment] 1 applic TOPICAL DAILY #1 each 05/08/24 Dapagliflozin Propanediol [Farxiga] 10 mg PO DAILY #30 tab 05/08/24 Famotidine [Pepcid] 20 mg PO DAILY #30 tab 05/08/24 Furosemide [Lasix] 20 mg PO DAILY #30 tab 05/08/24 Gabapentin [Neurontin] 100 mg PO TID #90 cap 05/08/24 Insulin Glargine,Hum.rec.anlog 30 units SQ HS #0 05/08/24 [Lantus Solostar Pen] Insulin Regular [humuLIN R] 30 units SQ BID #0 05/08/24 Losartan [Cozaar] 12.5 mg PO DAILY #30 tab 05/08/24 Mag Hydrox/Al Hydrox/Simeth 30 ml PO Q4HR PRN ml 05/08/24 [Maalox] Metoprolol Succinate (ER) [Toprol 25 mg PO DAILY #30 tab 05/08/24 XL] Nitroglycerin Sl Tabs [Nitrostat] 0.4 mg SUBLINGUAL Q5M PRN #20 tab 05/08/24 amLODIPine [Norvasc] 10 mg PO DAILY #30 tab 05/08/24 Allergies Allergy/AdvReac Type Severity Reaction Status Date / Time ciprofloxacin [From Cipro] AdvReac Nausea & Verified 02/27/25 09:12 Vomiting ciprofloxacin HCl AdvReac Nausea & Verified 02/27/25 09:12 [From Cipro] Vomiting clindamycin AdvReac Nausea & Verified 02/27/25 09:12 Vomiting sulfamethoxazole AdvReac Nausea & Verified 02/27/25 09:12 [From Bactrim] Vomiting trimethoprim [From Bactrim] AdvReac Nausea & Verified 02/27/25 09:12 Vomiting Review of Systems ROS Statement: Those systems with pertinent positive or pertinent negative responses have been documented in the HPI. ROS Other: All systems not noted in ROS Statement are negative. Past Medical History Past Medical History: Asthma, Blood Disorder, Coronary Artery Disease (CAD), Diabetes Mellitus, Eye Disorder, GERD/Reflux, Hyperlipidemia, Hypertension, Myocardial Infarction ([place]), Pneumonia, Skin Disorder, Vascular Disorder Additional Past Medical History / Comment(s): Type II diabetic IDDM. retinitis pigmentosa (losing peripheral vision), Hx of cellulitis lt foot March 03, 2024. Circulation issues to lt leg-recent February 2024. IBD. Recent hospitalization @[facility] February-pt states she was anemic. States Hgb at discharge was 8.4. Pt states she had re-draw last week @[facility] out pt lab and it was Hgb was 9.6. She states she was put on Multivitamin. Last Myocardial Infarction Date:: 05/2015 History of Any Multi-Drug Resistant Organisms: CRE, ESBL Date of last positivie culture/infection: 05/06/24 - ESBL & CRE MDRO Source:: LEFT FOOT Past Surgical History: Heart Catheterization, Heart Catheterization With Stent Additional Past Surgical History / Comment(s): boil under armpit (2000) Cardiac stent x3. Stent to lt leg March 07, 2024. Past Anesthesia/Blood Transfusion Reactions: No Reported Reaction Additional Past Anesthesia/Blood Transfusion Reaction / Comment(s): No hx of blood transfusion. Date of Last Stent Placement:: 05/30/2015 Past Psychological History: Anxiety Smoking Status: Former smoker Past Alcohol Use History: None Reported Past Drug Use History: None Reported - Past Family History Mother Family Medical History: Hypertension Additional Family Medical History / Comment(s): borderline diabetic Father Family Medical History: Cancer Additional Family Medical History / Comment(s): leukemia, stents placed, at 81 years old General Exam Limitations: no limitations General appearance: alert, in no apparent distress Head exam: Present: atraumatic, normocephalic, normal inspection Eye exam: Present: normal appearance, PERRL, EOMI. Absent: scleral icterus, conjunctival injection, periorbital swelling ENT exam: Present: normal exam, normal oropharynx, mucous membranes moist Neck exam: Present: normal inspection, full ROM. Absent: tenderness, meningismus, lymphadenopathy Respiratory exam: Present: normal lung sounds bilaterally. Absent: respiratory distress, wheezes, rales, rhonchi, stridor Cardiovascular Exam: Present: regular rate, normal rhythm, normal heart sounds. Absent: systolic murmur, diastolic murmur, rubs, gallop, clicks Extremities exam: Present: other (Left left first digit there is gangrenous changes at the first digit with decreased sensation very faint pulses of the foot. Mild erythema edema prior amputation fifth digit) Course Vital Signs 02/27/25 09:08 Temperature 98.0 F Pulse Rate 79 Respiratory 18 Rate Blood Pressure 173/84 O2 Sat by Pulse 96 Oximetry Medical Decision Making - Medical Decision Making Was pt. sent in by a medical professional or institution (, PA, CLARIFIER OPERATOR HELPER, urgent care, hospital, or senior care...) When possible be specific @ -Wound clinic Did you speak to anyone other than the patient for history (EMS, parent, family, police, friend...)? What history was obtained from this source @ -No Did you review nursing and triage notes (agree or disagree)? Why? @ -I reviewed and agree with nursing and triage notes Were old charts reviewed (outside hosp., previous admission, EMS record, old EKG, old radiological studies, urgent care reports/EKG's, senior care records)? Report findings @ -No old charts were reviewed Differential Diagnosis (chest pain, altered mental status, abdominal pain women, abdominal pain men, vaginal bleeding, weakness, fever, dyspnea, syncope, headache, dizziness, GI bleed, back pain, seizure, CVA, palpatations, mental health, musculoskeletal)? @Diabetic ulceration, osteomyelitis, gangrene, peripheral vascular disease EKG interpreted by me (3pts min.). @ -[None X-rays interpreted by me (1pt min.). @ -X-ray right foot shows old amputation, healed fractures no evidence of osteomyelitis. CT interpreted by me (1pt min.). @ -None done U/S interpreted by me (1pt. min.). @ -None done What testing was considered but not performed or refused? (CT, X-rays, U/S, labs)? Why? @ -None What meds were considered but not given or refused? Why? @ -None Did you discuss the management of the patient with other professionals (professionals i.e. , PA, CLARIFIER OPERATOR HELPER, lab, RT, psych nurse, criminal justice social worker, global creative chairman, teacher, environmental compliance officer, bilingual patient support caseworker)? Give summary @ -No Was smoking cessation discussed for >3mins.? @ -No Was critical care preformed (if so, how long)? @ -No Were there social determinants of health that impacted care today? How? (Homelessness, low income, unemployed, alcoholism, drug addiction, transportatio n, low edu. Level, literacy, decrease access to med. care, intermediate, rehab)? @ -No Was there de-escalation of care discussed even if they declined (Discuss DNR or withdrawal of care, Hospice)? DNR status @ -No What co-morbidities impacted this encounter? (DM, HTN, Smoking, COPD, CAD, Cancer, CVA, ARF, Chemo, Hep., AIDS, mental health diagnosis, sleep apnea, morbid obesity)? @ -None Was patient admitted / discharged? Hospital course, mention meds given and route, prescriptions, significant lab abnormalities, going to OR and other pertinent info. @ -Admitted patient sent in for gangrene diabetic ulceration of the first digit. There is no evidence of osteo patient started on dual antibiotic therapy of admitted with vascular surgery. Undiagnosed new problem with uncertain prognosis? @ -No Drug Therapy requiring intensive monitoring for toxicity (Heparin, Nitro, Insulin, Cardizem)? @ -No Were any procedures done? @ -No Diagnosis/symptom? @ -Diabetic ulceration, gangrene Acute, or Chronic, or Acute on Chronic? @ -Acute Uncomplicated (without systemic symptoms) or Complicated (systemic symptoms)? @ -Complicated Side effects of treatment? @ -No Exacerbation, Progression, or Severe Exacerbation? @ -No Poses a threat to life or bodily function? How? (Chest pain, [place], [place], pneumonia, PE, COPD, DKA, ARF, appy, cholecystitis, CVA, Diverticulitis, Homicidal, Suicidal, threat to staff... and all critical care pts) @ -No - Lab Data Result diagrams: 02/27/25 10:20 02/27/25 10:20 Lab Results 02/27/25 02/27/25 02/27/25 Range/Units 10:20 10:20 10:20 WBC 10.06 H (4.50-10.00) 10*3/uL RBC 4.57 (4.10-5.20) 10*6/uL Hgb 12.0 (12.0-15.0) g/dL Hct 37.2 (37.2-46.3) % MCV 81.4 (80.0-97.0) fL MCH 26.3 L (27.0-32.0) pg MCHC 32.3 (32.0-37.0) g/dL Plt Count 346 (140-440) 10*3/uL MPV 9.3 L (9.5-12.2) fL Immature Gran % (Auto) 0.3 % Neutrophils % 80.0 % Lymphocytes % 11.1 % Monocytes % 7.1 % Eosinophils % 1.0 % Basophils % 0.5 % Immature Gran # 0.03 (0.00-0.04) 10*3/uL Neutrophils # 8.05 H (1.80-7.70) 10*3/uL Lymphocytes # 1.12 (0.90-5.00) 10*3/uL Monocytes # 0.71 (0.20-1.00) 10*3/uL Eosinophils # 0.10 (0.04-0.35) 10*3/uL Basophils # 0.05 (0.00-0.10) 10*3/uL Sodium 135 L (137-145) mmol/L Potassium 4.3 (3.5-5.1) mmol/L Chloride 98 (98-107) mmol/L Carbon Dioxide 25 (22-30) mmol/L Anion Gap 12 mmol/L BUN 32 H (7-17) mg/dL Creatinine 1.26 H (0.52-1.04) mg/dL Est GFR (CKD-EPI)AfAm 53 (>60 ml/min/1.73 sqM) Est GFR (CKD-EPI)NonAf 46 (>60 ml/min/1.73 sqM) Glucose 274 H (74-99) mg/dL Plasma Lactic Acid Jose Manuel 1.6 (0.7-2.0) mmol/L Calcium 9.7 (8.4-10.2) mg/dL Total Bilirubin 0.7 (0.2-1.3) mg/dL AST 17 (14-36) U/L ALT 14 (4-34) U/L Alkaline Phosphatase 140 H (38-126) U/L C-Reactive Protein 4.8 H (<1.0) mg/dL Total Protein 7.0 (6.3-8.2) g/dL Albumin 3.8 (3.5-5.0) g/dL Disposition Clinical Impression: Gangrene of toe of left foot, Diabetic infection of left foot Disposition: ADMITTED IP TO THIS HOSP Condition: Fair Referrals: Dylon Cortes MD [Primary Care Provider] - 1-2 days Time of Disposition: 11:06
[2025-02-27 10:33] LABS: Basophils # (A) 0.05 10*3/uL (0.00-0.10); Basophils % (A) 0.5 %; HCT 37.2 % (37.2-46.3); Lymphocytes # (A) 1.12 10*3/uL (0.90-5.00); Lymphocytes % (A) 11.1 %; MCH 26.3 pg (27.0-32.0); MCHC 32.3 g/dL (32.0-37.0); MCV 81.4 fL (80.0-97.0); Mean Platelet Volume 9.3 fL (9.5-12.2); Monocytes # (A) 0.71 10*3/uL (0.20-1.00); Monocytes % (A) 7.1 %; Neutrophils # (A) 8.05 10*3/uL (1.80-7.70); Platelet Count 346 10*3/uL (140-440); RBC 4.57 10*6/uL (4.10-5.20); WBC 10.06 10*3/uL (4.50-10.00)
--- NOTE | 2025-02-27 10:33 | XR ---
EXAMINATION TYPE: XR foot complete LT DATE OF EXAM: 02/27/2025 10:25 AM COMPARISON: 04/20/2024 CLINICAL INDICATION: Female, 59 years old with history of infection 1st toe; PHH, pain TECHNIQUE: 3 views FINDINGS: Previous amputation fifth toe at the level of the mid metatarsal shaft. Healed fracture deformity sec ond mid metatarsal shaft. Type I accessory navicular. There is some mild bone loss and irregularity a t the fourth proximal phalangeal base probably sequela of prior infection if there is no overlying ul cer here. Prominent soft tissue swelling throughout. There is bipartite tibial sesamoid, type I accessory navic ular, underlying degenerative change first TMT joint, tiny plantar heel spur. No discrete osseous ero magdi with particular attention to the great toe. IMPRESSION: 1. Previous fifth toe amputation at the level of the fifth metatarsal shaft. 2. Now healed fracture deformity second mid metatarsal shaft. 3. Some bone loss and irregularity at the fourth proximal phalangeal base. In the absence of any over lying ulcer, findings likely sequela of old infection. Further clinical correlation recommended to ex clude the possibility of osteomyelitis here. 4. Prominent soft tissue swelling throughout. No discrete radiographic findings of osteomyelitis invo lving the great toe. Follow-up as clinically indicated. [facility], , 02/27/2025 10:30 AM
[2025-02-27 10:49] LABS: ALT 14 U/L (4-34); AST 17 U/L (14-36); African American GFR (CKD) 53 (>60 ml/min/1.73 sqM); Albumin 3.8 g/dL (3.5-5.0); Alkaline Phosphatase 140 U/L (38-126); Anion Gap 12 mmol/L; Blood Urea Nitrogen 32 mg/dL (7-17); C Reactive Protein 4.8 mg/dL (<1.0); Calcium 9.7 mg/dL (8.4-10.2); Carbon Dioxide 25 mmol/L (22-30); Chloride 98 mmol/L (98-107); Glucose 274 mg/dL (74-99); Non-African American GFR(CKD) 46 (>60 ml/min/1.73 sqM); Potassium 4.3 mmol/L (3.5-5.1); Sodium 135 mmol/L (137-145); Total Bilirubin 0.7 mg/dL (0.2-1.3)
[2025-02-27] MEDS ORDERED: VANCOMYCIN IV PER PHARMACY 1 EACH MISC MISCELLANE PRN (10:56)
[2025-02-27] MEDS ORDERED: NALOXONE 0.4 MG/ML 1 ML VIAL IV PRN (11:06)
[2025-02-27] MEDS ORDERED: ACETAMINOPHEN TAB 325 MG TAB PO PRN (11:06)
[2025-02-27] MEDS: PIPERACILLIN-TAZOBACTAM 3.375 GM in SODIUM CHLORIDE 0.9% 100 ML IVPB STA (11:51)
[2025-02-27] MEDS: PIPERACILLIN-TAZOBACTAM 3.375 GM in SODIUM CHLORIDE 0.9% 100 ML IVPB SCH ×2 (11:54→19:57)
[2025-02-27] MEDS: VANCOMYCIN 1,500 MG in SODIUM CHLORIDE 0.9% 500 ML 500 ML IVPB STA (13:14)
[2025-02-27] MEDS: METOPROLOL SUCCINATE (ER) 25 MG TAB.ER.24H PO SCH (15:50)
[2025-02-27 16:52] LABS: Glucose,Whole Blood 244 mg/dL (70-110)
[2025-02-27] MEDS: ENOXAPARIN 40 MG/0.4 ML SYRINGE SQ SCH (16:54)
--- NOTE | 2025-02-27 18:52 | P.GSCN ---
History of Present Illness Consult date: 02/27/25 Reason for Consult: Gangrene left great toe. History of present illness: Patient is a 59-year-old female with a 30 or so year history of diabetes mellitus who presented with chronic ischemic changes of the left great toe. She has been treated in wound care with no significant improvement. She was admitted to the hospital for further evaluation and care. She denies any ischemic rest pain, chills or fevers. She is status post left fifth toe amputation performed by Dr. Ledesma. Past Medical History Past Medical History: Asthma, Blood Disorder, Coronary Artery Disease (CAD), Diabetes Mellitus, Eye Disorder, GERD/Reflux, Hyperlipidemia, Hypertension, Myocardial Infarction ([place]), Pneumonia, Skin Disorder, Vascular Disorder Additional Past Medical History / Comment(s): Type II diabetic IDDM. retinitis pigmentosa (losing peripheral vision), Hx of cellulitis lt foot March 03, 2024. Circulation issues to lt leg-recent February 2024. IBD. Recent hospitalization @[facility] February-pt states she was anemic. States Hgb at discharge was 8.4. Pt states she had re-draw last week @[facility] out pt lab and it was Hgb was 9.6. She states she was put on Multivitamin. Last Myocardial Infarction Date:: 05/2015 History of Any Multi-Drug Resistant Organisms: CRE, ESBL Year Discovered:: 05/06/24 - ESBL & CRE MDRO Source:: LEFT FOOT Past Surgical History: Heart Catheterization, Heart Catheterization With Stent Additional Past Surgical History / Comment(s): boil under armpit (2000) Cardiac stent x3. Stent to lt leg March 07, 2024., Left 5thtoe amp Past Anesthesia/Blood Transfusion Reactions: No Reported Reaction Additional Past Anesthesia/Blood Transfusion Reaction / Comm: No hx of blood transfusion. Date of Last Stent Placement:: 04/29/2024 Past Psychological History: Anxiety Smoking Status: Former smoker Past Alcohol Use History: None Reported Additional Past Alcohol Use History / Comment(s): Started smoking 1983, smoked 1ppd, quit in 1997 Past Drug Use History: None Reported Additional Drug Use History / Comment(s): former smoker, quit 27 years ago. - Past Family History Mother Family Medical History: Hypertension Additional Family Medical History / Comment(s): borderline diabetic Father Family Medical History: Cancer Additional Family Medical History / Comment(s): leukemia, stents placed, at 81 years old Medications and Allergies Home Medications Medication Instructions Recorded Confirmed Type Aspirin EC [Ecotrin Low Dose] 81 mg PO DAILY 03/03/24 02/27/25 History Clopidogrel [Plavix] 75 mg PO DAILY #30 tab 05/08/24 02/27/25 Rx Furosemide [Lasix] 20 mg PO DAILY #30 tab 05/08/24 02/27/25 Rx Metoprolol Succinate (ER) [Toprol 25 mg PO DAILY #30 tab 05/08/24 02/27/25 Rx XL] amLODIPine [Norvasc] 10 mg PO DAILY #30 tab 05/08/24 02/27/25 Rx Insulin Degludec [Tresiba 30 units SQ HS 02/27/25 02/27/25 History Flextouch U-100 Pen] Insulin Regular, Human [NovoLIN R] See Protocol SQ TID 02/27/25 02/27/25 History rifAMPin [Rifampin] 300 mg PO BID 02/27/25 02/27/25 History Allergies Allergy/AdvReac Type Severity Reaction Status Date / Time ciprofloxacin [From Cipro] AdvReac Nausea & Verified 02/27/25 11:31 Vomiting ciprofloxacin HCl AdvReac Nausea & Verified 02/27/25 11:31 [From Cipro] Vomiting clindamycin AdvReac Nausea & Verified 02/27/25 11:31 Vomiting sulfamethoxazole AdvReac Nausea & Verified 02/27/25 11:31 [From Bactrim] Vomiting trimethoprim [From Bactrim] AdvReac Nausea & Verified 02/27/25 11:31 Vomiting Surgical - Exam Osteopathic Statement: *. No significant issues noted on an osteopathic structural exam other than those noted in the History and Physical/Consult. Vital Signs Temp Pulse Resp BP Pulse Ox 98.0 F 79 18 173/84 96 02/27/25 09:08 02/27/25 09:08 02/27/25 09:08 02/27/25 09:08 02/27/25 09:08 Patient Seen Date: 02/27/25 Patient Seen Time: 18:00 Patient exhibits dry gangrenous changes of the left great toe. Edges are clean. There is no evidence of erythema or unchecked infectious issue. Foot is otherwise pink as are the toes and the toes are freely movable. I could not palpate DP or PT pulses, consistent with diabetic vascular disease. Results - Labs 02/27/25 10:20 02/27/25 10:20 Abnormal Lab Results - Last 24 Hours (Table) 02/27/25 02/27/25 02/27/25 Range/Units 10:20 10:20 16:51 WBC 10.06 H (4.50-10.00) 10*3/uL MCH 26.3 L (27.0-32.0) pg MPV 9.3 L (9.5-12.2) fL Neutrophils # 8.05 H (1.80-7.70) 10*3/uL Sodium 135 L (137-145) mmol/L BUN 32 H (7-17) mg/dL Creatinine 1.26 H (0.52-1.04) mg/dL Glucose 274 H (74-99) mg/dL POC Glucose (mg/dL) 244 H (70-110) mg/dL Alkaline Phosphatase 140 H (38-126) U/L C-Reactive Protein 4.8 H (<1.0) mg/dL Diabetes panel 02/27/25 Range/Units 10:20 Sodium 135 L (137-145) mmol/L Potassium 4.3 (3.5-5.1) mmol/L Chloride 98 (98-107) mmol/L Carbon Dioxide 25 (22-30) mmol/L BUN 32 H (7-17) mg/dL Creatinine 1.26 H (0.52-1.04) mg/dL Glucose 274 H (74-99) mg/dL Calcium 9.7 (8.4-10.2) mg/dL AST 17 (14-36) U/L ALT 14 (4-34) U/L Alkaline Phosphatase 140 H (38-126) U/L Total Protein 7.0 (6.3-8.2) g/dL Albumin 3.8 (3.5-5.0) g/dL Calcium panel 02/27/25 Range/Units 10:20 Calcium 9.7 (8.4-10.2) mg/dL Albumin 3.8 (3.5-5.0) g/dL Pituitary panel 02/27/25 Range/Units 10:20 Sodium 135 L (137-145) mmol/L Potassium 4.3 (3.5-5.1) mmol/L Chloride 98 (98-107) mmol/L Carbon Dioxide 25 (22-30) mmol/L BUN 32 H (7-17) mg/dL Creatinine 1.26 H (0.52-1.04) mg/dL Glucose 274 H (74-99) mg/dL Calcium 9.7 (8.4-10.2) mg/dL Adrenal panel 02/27/25 Range/Units 10:20 Sodium 135 L (137-145) mmol/L Potassium 4.3 (3.5-5.1) mmol/L Chloride 98 (98-107) mmol/L Carbon Dioxide 25 (22-30) mmol/L BUN 32 H (7-17) mg/dL Creatinine 1.26 H (0.52-1.04) mg/dL Glucose 274 H (74-99) mg/dL Calcium 9.7 (8.4-10.2) mg/dL Total Bilirubin 0.7 (0.2-1.3) mg/dL AST 17 (14-36) U/L ALT 14 (4-34) U/L Alkaline Phosphatase 140 H (38-126) U/L Total Protein 7.0 (6.3-8.2) g/dL Albumin 3.8 (3.5-5.0) g/dL Assessment and Plan Assessment: Diabetic vascular disease with dry gangrenous changes of the left great toe. Plan: I believe the patient can be followed as an outpatient and scheduled for elective great toe amputation.
[2025-02-27] MEDS: cloNIDine HCL 0.1 MG TAB PO SCH (19:56)
--- NOTE | 2025-02-27 20:15 | P.HPIM ---
History of Present Illness H&P Date: 02/27/25 Chief Complaint: Left foot big toe gangrene Patient is a 59-year-old female, follows with Dr. Cortes History of coronary disease status post stent placement, diabetes type 2 ins ulin-dependent, hypertension, asthma and history of retinitis pigmentosa, anxiety 03/05/2024: CT angiogram of the abdomen aorta with runoff showed heavily calcified bilateral lower extremity arterial vasculature involving the superficial femoral arteries and extending inferiorly to the popliteal artery to the feet is limited due to severe atherosclerotic plaque. March 28, 2024: Left fifth toe ray amputation carried out by Dr. Ledesma. April 26, 2024: t cardiac catheterization by Dr. Andrea Donahue-: Long segment of severe stenosis 80 to 90% RCA. Circumflex 30%. LAD is diffusely diseased subtotally occluded in its midportion. Severe stenosis within the stent. Stent to the RCA Patient had developed a wound on the left foot big toe. Follows with Dr. Montoya at the wound center at [facility] from April 2024 to October of this year. Then followed from November till now. Patient developed ulcer on the left big toe was 6 weeks ago. Did also go undergo debridement. Patient recently followed with Dr. Ordaz from vascular who did inform her she had decreased circulation. She was sent in from the wound care center because left big toe black in color. She does get occasionally get pain in that. Sometimes sharp. Denies any fever and chills. No drainage. Review of systems: GEN.: None EYES: None HEENT: None NECK: None RESPIRATORY: None CARDIOVASCULAR: None GASTROINTESTINAL: None GENITOURINARY: None MUSCULOSKELETAL: Joint pains LYMPHATICS: None HEMATOLOGICAL: None PSYCHIATRY: None NEUROLOGICAL: None Social history: Lives with her parents. No alcohol. Patient smoked 1 pack a day from 1983 98. On examination: VITAL SIGNS: 97.7, 80, 18, 190 x 96, 97% room air GENERAL APPEARANCE: Sitting up bed, comfortable HEENT: Normal external appearance of nose and ear. Oral cavity normal EYES: Pupils equal. Conjunctiva normal. NECK: JVD not raised. Mass not palpable. RESPIRATORY: Respiratory effort normal. Lungs clear to auscultation. CARDIOVASCULAR: First and second sounds normal. No edema. ABDOMEN: Soft. Liver and spleen not palpable. No tenderness. No mass palpable. PSYCHIATRY: Alert and oriented x3. Mood and affect normal. EXTREMITIES: Left foot: Fifth toe amputation. Big toe: Dry gangrene along the whole digit. No drainage. INVESTIGATIONS, reviewed in the clinical context: February 27, 2025: White count 10.0 hemoglobin 12.0 platelets 346 sodium 135 potassium 4.3 BUN 32 creatinine 1.26 CRP 4.8 Previous investigations May 08, 2024: Creatinine 1.4 CT angiogram: February 2022 heavily calcified bilateral lower extremity arterial vasculature involving the superficial femoral arteries. Extending inferiorly. Extending into the femoral artery then is limited due to severe atherosclerotic plaque. Multiple areas of high-grade stenosis. Assessment and plan: - Acute on chronic dry gangrene left foot big toe. This has been present for about 6 weeks. Patient has been seeing Dr. Montoya at the wound care center at [place]. This started out as an ulcer about 6 weeks ago. And became dark in about a month's time. She also saw Dr. Ordaz from vascular recently. Was informed that she has poor circulation. Dr. Walter from vascular consulted. Patient was started on vancomycin and Zosyn in the ER. -Ischemic cardiomyopathy, chronic EF 35 to 40% Lasix 20 mg a day -Severe triple-vessel coronary artery disease. Coronary artery disease, with last stent to the RCA April 2024 Plavix, aspirin -Severe peripheral arterial disease Patient's had left foot little finger amputated Aspirin, Plavix Lipitor-has had some problems in the past -Diabetes type 2 insulin-dependent Resume home dose of insulin. Regular and Tresiba. 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 Dr. Walter from vascular was consulted. Home medications resumed. Discussed with patient. Past Medical History Past Medical History: Asthma, Blood Disorder, Coronary Artery Disease (CAD), Diabetes Mellitus, Eye Disorder, GERD/Reflux, Hyperlipidemia, Hypertension, Myocardial Infarction ([place]), Pneumonia, Skin Disorder, Vascular Disorder Additional Past Medical History / Comment(s): Type II diabetic IDDM. retinitis pigmentosa (losing peripheral vision), Hx of cellulitis lt foot March 03, 2024. Circulation issues to lt leg-recent February 2024. IBD. Recent hospitalization @[facility] February-pt states she was anemic. States Hgb at discharge was 8.4. Pt states she had re-draw last week @[facility] out pt lab and it was Hgb was 9.6. She states she was put on Multivitamin. Last Myocardial Infarction Date:: 05/2015 History of Any Multi-Drug Resistant Organisms: CRE, ESBL Date of last positivie culture/infection: 05/06/24 - ESBL & CRE MDRO Source:: LEFT FOOT Past Surgical History: Heart Catheterization, Heart Catheterization With Stent Additional Past Surgical History / Comment(s): boil under armpit (2000) Cardiac stent x3. Stent to lt leg March 07, 2024., Left 5thtoe amp Past Anesthesia/Blood Transfusion Reactions: No Reported Reaction Additional Past Anesthesia/Blood Transfusion Reaction / Comment(s): No hx of blood transfusion. Date of Last Stent Placement:: 04/29/2024 Past Psychological History: Anxiety Smoking Status: Former smoker Past Alcohol Use History: None Reported Additional Past Alcohol Use History / Comment(s): Started smoking 1983, smoked 1ppd, quit in 1997 Past Drug Use History: None Reported Additional Drug Use History / Comment(s): former smoker, quit 27 years ago. - Past Family History Mother Family Medical History: Hypertension Additional Family Medical History / Comment(s): borderline diabetic Father Family Medical History: Cancer Additional Family Medical History / Comment(s): leukemia, stents placed, at 81 years old Medications and Allergies Home Medications Medication Instructions Recorded Confirmed Type Aspirin EC [Ecotrin Low Dose] 81 mg PO DAILY 03/03/24 02/27/25 History Clopidogrel [Plavix] 75 mg PO DAILY #30 tab 05/08/24 02/27/25 Rx Furosemide [Lasix] 20 mg PO DAILY #30 tab 05/08/24 02/27/25 Rx Metoprolol Succinate (ER) [Toprol 25 mg PO DAILY #30 tab 05/08/24 02/27/25 Rx XL] amLODIPine [Norvasc] 10 mg PO DAILY #30 tab 05/08/24 02/27/25 Rx Insulin Degludec [Tresiba 30 units SQ HS 02/27/25 02/27/25 History Flextouch U-100 Pen] Insulin Regular, Human [NovoLIN R] See Protocol SQ TID 02/27/25 02/27/25 History rifAMPin [Rifampin] 300 mg PO BID 02/27/25 02/27/25 History Allergies Allergy/AdvReac Type Severity Reaction Status Date / Time ciprofloxacin [From Cipro] AdvReac Nausea & Verified 02/27/25 11:31 Vomiting ciprofloxacin HCl AdvReac Nausea & Verified 02/27/25 11:31 [From Cipro] Vomiting clindamycin AdvReac Nausea & Verified 02/27/25 11:31 Vomiting sulfamethoxazole AdvReac Nausea & Verified 02/27/25 11:31 [From Bactrim] Vomiting trimethoprim [From Bactrim] AdvReac Nausea & Verified 02/27/25 11:31 Vomiting Physical Exam Vitals: Vital Signs Temp Pulse Pulse Resp BP BP BP 02/27/25 19:52 98.6 F 81 17 183/104 02/27/25 17:45 78 188/105 02/27/25 17:43 82 188/109 02/27/25 16:07 97.7 F 80 18 190/96 02/27/25 15:44 97.8 F 79 18 197/81 02/27/25 11:57 97.9 F 76 18 189/81 02/27/25 09:08 98.0 F 79 18 173/84 Pulse Ox 02/27/25 19:52 94 L 02/27/25 17:45 97 02/27/25 17:43 96 02/27/25 16:07 97 02/27/25 15:44 97 02/27/25 11:57 96 02/27/25 09:08 96 Intake and Output 02/27/25 02/27/25 02/27/25 06:59 14:59 22:59 Intake Total 600 Balance 600 Intake: Intake, IV Titration 600 Amount Piperacillin-Tazobactam 3 100 .375 gm In Sodium Chloride 0.9% 100 ml @ 25 mls/hr IVPB Q8H [facility] Rx#: [id number] Vancomycin 1,500 mg In 500 Sodium Chloride 0.9% 500 ml 500 ml @ 167 mls/hr IVPB Q16H [facility] Rx#: [id number] Other: # Voids 1 Weight 86.183 kg 86.183 kg Results CBC & Chem 7: 02/27/25 10:20 02/27/25 10:20 Labs: Abnormal Lab Results - Last 24 Hours (Table) 02/27/25 02/27/25 02/27/25 Range/Units 10:20 10:20 16:51 WBC 10.06 H (4.50-10.00) 10*3/uL MCH 26.3 L (27.0-32.0) pg MPV 9.3 L (9.5-12.2) fL Neutrophils # 8.05 H (1.80-7.70) 10*3/uL Sodium 135 L (137-145) mmol/L BUN 32 H (7-17) mg/dL Creatinine 1.26 H (0.52-1.04) mg/dL Glucose 274 H (74-99) mg/dL POC Glucose (mg/dL) 244 H (70-110) mg/dL Alkaline Phosphatase 140 H (38-126) U/L C-Reactive Protein 4.8 H (<1.0) mg/dL Thrombosis Risk Factor Assmnt - Choose All That Apply Any of the Below Risk Factors Present?: Yes Each Factor Represents 1 point: Obesity (BMI >25) Other Risk Factors: Yes Each Risk Factor Represents 2 Points: Age 61-74 years Other congenital or acquired thrombophilia - If yes, enter type in comment: No Thrombosis Risk Factor Assessment Total Risk Factor Score: 3 Thrombosis Risk Factor Assessment Level: Moderate Risk
[2025-02-27 20:16] LABS: Glucose,Whole Blood 349 mg/dL (70-110)
[2025-02-27] MEDS: INSULIN GLARGINE (LANTUS) 100 UNIT/ML SYR SQ SCH (20:39)
[2025-02-27] MEDS: rifAMPin 300 MG CAP PO SCH (20:39)
[2025-02-28 00:33] LABS: Glucose,Whole Blood 331 mg/dL (70-110)
[2025-02-28] MEDS ORDERED: VANCOMYCIN 1,500 MG in SODIUM CHLORIDE 0.9% 500 ML 500 ML IVPB SCH (05:00)
[2025-02-28 07:05] LABS: African American GFR (CKD) 59 (>60 ml/min/1.73 sqM); Anion Gap 8 mmol/L; Blood Urea Nitrogen 28 mg/dL (7-17); Calcium 8.9 mg/dL (8.4-10.2); Carbon Dioxide 27 mmol/L (22-30); Chloride 100 mmol/L (98-107); Glucose 189 mg/dL (74-99); Non-African American GFR(CKD) 52 (>60 ml/min/1.73 sqM); Sodium 135 mmol/L (137-145)
[2025-02-28 07:10] LABS: Glucose,Whole Blood 176 mg/dL (70-110)
[2025-02-28 07:37] VITALS: BP 178/89; PULSE 77; RESP 14; TEMP 98.3
[2025-02-28] MEDS: amLODIPine 10 MG TAB PO SCH (08:26)
[2025-02-28] MEDS: ASPIRIN 81 MG PO SCH (08:26)
--- NOTE | 2025-02-28 17:48 | P.DS ---
Providers Date of admission: 02/27/25 12:07 Expected date of discharge: 02/28/25 Attending physician: Tyler Allen Consults: 02/27/25 11:06 Consult Physician Urgent Consulting Provider: Jo Maier Consult Reason/Comments: Diabetic ulceration, gangrene Do you want consulting provider notified?: Yes Primary care physician: [facility] Course: Chief Complaint: Left foot big toe gangrene Patient is a 59-year-old female, follows with Dr. Cortes History of coronary disease status post stent placement, diabetes type 2 insulin-dependent, hypertension, asthma and history of retinitis pigmentosa, anxiety 03/05/2024: CT angiogram of the abdomen aorta with runoff showed heavily calcified bilateral lower extremity arterial vasculature involving the superficial femoral arteries and extending inferiorly to the popliteal artery to the feet is limited due to severe atherosclerotic plaque. March 28, 2024: Left fifth toe ray amp utation carried out by Dr. Ledesma. April 26, 2024: t cardiac catheterization by Dr. Andrea Donahue-: Long segment of severe stenosis 80 to 90% RCA. Circumflex 30%. LAD is diffusely diseased subtotally occluded in its midportion. Severe stenosis within the stent. Stent to the RCA Patient had developed a wound on the left foot big toe. Follows with Dr. Montoya at the wound center at [facility] from April 2024 to October of this year. Then followed from November till now. Patient developed ulcer on the left big toe was 6 weeks ago. Did also go undergo debridement. Patient recently followed with Dr. Ordaz from vascular who did inform her she had decreased circulation. She was sent in from the wound care center because left big toe black in color. She does get occasionally get pain in that. Sometimes sharp. Denies any fever and chills. No drainage. February 28: Dr. Walter from vascular call me last night. Okay for patient to be discharged. Follow-up with outpatient. Patient is on rifampin and clindamycin outpatient continue same until follow-up with vascular. Patient also follows with the wound care center, at [place]. Blood pressure medication being changed to Catapres 0.2 mg twice daily Social history: Lives with her parents. No alcohol. Patient smoked 1 pack a day from 1983 98. On examination: VITAL SIGNS: 97.8, 71, 18, GENERAL APPEARANCE: Sitting up bed, comfortable HEENT: Normal external appearance of nose and ear. Oral cavity normal EYES: Pupils equal. Conjunctiva normal. NECK: JVD not raised. Mass not palpable. RESPIRATORY: Respiratory effort normal. Lungs clear to auscultation. CARDIOVASCULAR: First and second sounds normal. No edema. ABDOMEN: Soft. Liver and spleen not palpable. No tenderness. No mass palpable. PSYCHIATRY: Alert and oriented x3. Mood and affect normal. EXTREMITIES: Left foot: Fifth toe amputation. Big toe: Dry gangrene along the whole digit. No drainage. INVESTIGATIONS, reviewed in the clinical context: February 27, 2025: White count 10.0 hemoglobin 12.0 platelets 346 sodium 135 potassium 4.3 BUN 32 creatinine 1.26 CRP 4.8 Previous investigations May 08, 2024: Creatinine 1.4 CT angiogram: February 2022 heavily calcified bilateral lower extremity arterial vasculature involving the superficial femoral arteries. Extending inferiorly. Extending into the femoral artery then is limited due to severe atherosclerotic plaque. Multiple areas of high-grade stenosis. Assessment and plan: - Acute on chronic dry gangrene left foot big toe. This has been present for about 6 weeks. Patient has been seeing Dr. Montoya at the wound care center at [place]. This started out as an ulcer about 6 weeks ago. And became dark in about a month's time. She also saw Dr. Haines from vascular recently. Was informed that she has poor circulation. Dr. Walter from vascular saw the patient.: Patient okay to be discharged. Follow-up with their office next week Patient to continue rifampin and clindamycin as outpatient -Ischemic cardiomyopathy, chronic EF 35 to 40% Lasix 20 mg a day -Severe triple-vessel coronary artery disease. Coronary artery disease, with last stent to the RCA April 2024 Plavix, aspirin -Severe peripheral arterial disease Patient's had left foot little finger amputated Aspirin, Plavix Lipitor-has had some problems in the past -Diabetes type 2 insulin-dependent Resume home dose of insulin. Regular and Tresiba. 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 retinitis pigmentosa (losing peripheral vision), Hx of cellulitis lt foot March 03, 2024. Circulation issues to lt leg-recent February 2024. IBD. Recent hospitalization @[facility] February-pt states she was anemic. States Hgb at discharge was 8.4. Pt states she had re-draw last week @[facility] out pt lab and it was Hgb was 9.6. She states she was put on Multivitamin. Last Myocardial Infarction Date:: 05/2015 History of Any Multi-Drug Resistant Organisms: CRE, ESBL Date of last positivie culture/infection: 05/06/24 - ESBL & CRE MDRO Source:: LEFT FOOT Past Surgical History: Heart Catheterization, Heart Catheterization With Stent Additional Past Surgical History / Comment(s): boil under armpit (2000) Cardiac stent x3. Stent to lt leg March 07, 2024., Left 5thtoe amp Past Anesthesia/Blood Transfusion Reactions: No Reported Reaction Additional Past Anesthesia/Blood Transfusion Reaction / Comment(s): No hx of blood transfusion. Date of Last Stent Placement:: 04/29/2024 Past Psychological History: Anxiety Smoking Status: Former smoker Past Alcohol Use History: None Reported Additional Past Alcohol Use History / Comment(s): Started smoking 1983, smoked 1ppd, quit in 1997 Past Drug Use History: None Reported Additional Drug Use History / Comment(s): former smoker, quit 27 years ago. Plan - Discharge Summary Discharge Rx Participant: Yes New Discharge Prescriptions: New cloNIDine HCL 0.2 mg PO BID #60 tablet Continue Aspirin EC [Ecotrin Low Dose] 81 mg PO DAILY Furosemide [Lasix] 20 mg PO DAILY #30 tab amLODIPine [Norvasc] 10 mg PO DAILY #30 tab Metoprolol Succinate (ER) [Toprol XL] 25 mg PO DAILY #30 tab Clopidogrel [Plavix] 75 mg PO DAILY #30 tab rifAMPin [Rifampin] 300 mg PO BID Insulin Regular, Human [NovoLIN R] See Protocol SQ TID Insulin Degludec [Tresiba Flextouch U-100 Pen] 30 units SQ HS Discharge Medication List Aspirin EC [Ecotrin Low Dose] 81 mg PO DAILY 03/03/24 [History] Clopidogrel [Plavix] 75 mg PO DAILY #30 tab 05/08/24 [Rx] Furosemide [Lasix] 20 mg PO DAILY #30 tab 05/08/24 [Rx] Metoprolol Succinate (ER) [Toprol XL] 25 mg PO DAILY #30 tab 05/08/24 [Rx] amLODIPine [Norvasc] 10 mg PO DAILY #30 tab 05/08/24 [Rx] Insulin Degludec [Tresiba Flextouch U-100 Pen] 30 units SQ HS 02/27/25 [History] Insulin Regular, Human [NovoLIN R] See Protocol SQ TID 02/27/25 [History] rifAMPin [Rifampin] 300 mg PO BID 02/27/25 [History] cloNIDine HCL 0.2 mg PO BID #60 tablet 02/28/25 [Rx] Follow up Appointment(s)/Referral(s): [facility] [NON-STAFF] - 1 Week Joe Haines DO [STAFF PHYSICIAN] - 03/04/25 2:30 pm Dylon Cortes MD [Primary Care Provider] - 03/03/25 1:00 pm (You will see Henry.) Patient Instructions/Handouts: Diabetic Foot Ulcers (DC), Gangrene (DC) Discharge Disposition: HOME SELF-CARE
== END 2025-02-28 12:15 | disposition home or self-care (01) | DRG 301 ==
LOC: EC 08:55 → 5NMEDONC 12:07
PROVIDERS: ADMIT Hospitalist; ATTEND Hospitalist
DX: E11.52 Type 2 diabetes mellitus with diabetic peripheral angiopathy with gangrene (principal); E11.622 Type 2 diabetes mellitus with other skin ulcer; E11.22 Type 2 diabetes mellitus with diabetic chronic kidney disease; N18.30 Chronic kidney disease, stage 3 unspecified; E66.9 Obesity, unspecified; I12.9 Hypertensive chronic kidney disease with stage 1 through stage 4 chronic kidney disease, or unspecified chronic kidney disease; J45.20 Mild intermittent asthma, uncomplicated; Z79.4 Long term (current) use of insulin; I10 Essential (primary) hypertension; E78.5 Hyperlipidemia, unspecified; I25.10 Atherosclerotic heart disease of native coronary artery without angina pectoris; Z87.891 Personal history of nicotine dependence; F41.9 Anxiety disorder, unspecified; K21.9 Gastro-esophageal reflux disease without esophagitis; H35.52 Pigmentary retinal dystrophy; I25.2 Old myocardial infarction; I25.5 Ischemic cardiomyopathy; L08.9 Local infection of the skin and subcutaneous tissue, unspecified; Z68.32 Body mass index [BMI] 32.0-32.9, adult; Z79.02 Long term (current) use of antithrombotics/antiplatelets; Z79.82 Long term (current) use of aspirin; Z79.84 Long term (current) use of oral hypoglycemic drugs; Z79.899 Other long term (current) drug therapy; Z82.49 Family history of ischemic heart disease and other diseases of the circulatory system; Z95.5 Presence of coronary angioplasty implant and graft; Z88.1 Allergy status to other antibiotic agents; Z88.2 Allergy status to sulfonamides; Z71.3 Dietary counseling and surveillance
CPT/HCPCS: 36415; 80048; 80053; 83605; 85025; 86140; 87040; 96365; 96367; 99285

== ENCOUNTER 2025-03-17 10:02 | Day surgery (SDC) | payer MEDICARE, OTHER ==
[~2025-03-17 10:02] MED LIST changes: -DEXAMETHASONE SOD PHOSPHATE 4 MG/ML 1 ML VIAL IV ONE; -LACTATED RINGERS 1,000 ML IV SCH; -MIDAZOLAM 2 MG/2 ML VIAL IV PRN; -ONDANSETRON 4 MG/2 ML VIAL IVP ONE; -fentaNYL (PF) 50 MCG/ML 2 ML AMP IVP PRN
[2025-03-17] MEDS: IV FLUID CONTINUATION 1,000 ML IV ONE (10:35)
[2025-03-17] MEDS: LACTATED RINGERS 1,000 ML IV SCH (10:44)
[2025-03-17] MEDS: ONDANSETRON 4 MG/2 ML VIAL IVP ONE (10:44)
[2025-03-17] MEDS: DEXAMETHASONE SOD PHOSPHATE 4 MG/ML 1 ML VIAL IVP STA (10:45)
[2025-03-17] MEDS ORDERED: MIDAZOLAM 2 MG/2 ML VIAL ONE (10:46)
[2025-03-17] MEDS ORDERED: LABETALOL 5 MG/ML VIAL MDV ONE (10:46)
[2025-03-17] MEDS ORDERED: LIDOCAINE 1% INJ 10MG/ML (20 ML MDV) ONE (10:46)
[2025-03-17] MEDS ORDERED: fentaNYL (PF) 50 MCG/ML 2 ML AMP ONE (10:46)
[2025-03-17] MEDS ORDERED: ePHEDrine 50 MG/ML 1 ML VIAL ONE (10:46)
[2025-03-17] MEDS ORDERED: PROPOFOL 10 MG/ML 20 ML VIAL IV ONE (10:46)
[2025-03-17] MEDS: ceFAZolin 2 GM in DEXTROSE 5% IN WATER 50 ML IVPB PRN (10:51)
[2025-03-17 10:54] LABS: Glucose,Whole Blood 149 mg/dL (70-110)
[2025-03-17] MEDS: LIDOCAINE 1% INJ 10MG/ML (20 ML MDV) INTRADERMA ONE ×2 (11:04)
--- NOTE | 2025-03-17 11:33 | P.OP ---
Date of Procedure: 03/17/25 Preoperative Diagnosis: Left great toe gangrene Postoperative Diagnosis: Same Procedure(s) Performed: Left great toe amputation Anesthesia: ALISSA Surgeon: Joe Haines Estimated Blood Loss (ml): 5 Pathology: other (Left great toe) Condition: stable Disposition: PACU Indications for Procedure: 59-year-old female with history of peripheral arterial disease, previous fifth toe amputation presented to the office secondary to gangrene developing on her great toe. It was dry and therefore she was scheduled for amputation. Description of Procedure: After written and informed consent was obtained for the patient all risk, benefits and complications were described the patient was brought to the operative suite and laid in the supine position. The area of the left foot was prepped and draped in usual sterile fashion after appropriate anesthetic was performed per the anesthesiologist. A timeout was performed normal fashion antibiotics were administered prior to incision. Local anesthetic was then infused in a block fashion around the great toe on the left. A racquet incision was then created around the great toe and dissection was carried down to the metatarsal bone. The bone was then ligated and further dissection around the toe was performed with electrocautery and the toe was removed. There is no evidence of purulent drainage or infection. The area was copiously irrigated with antibiotic solution. Hemostasis was assured with electrocautery. The incision was then closed with 2-0 nylon suture in a vertical mattress fashion. Adaptic was then placed followed by 4 x 4's and Kerlix. Patient tolerated procedure well was sent to PACU for recovery.
[2025-03-17 11:42] VITALS: TEMP 97.2
[2025-03-17 12:37] VITALS: RESP 16
[2025-03-17 12:39] LABS: Glucose,Whole Blood 148 mg/dL (70-110)
[2025-03-17 13:11] VITALS: BP 180/77; PULSE 82
== END 2025-03-17 13:28 | disposition home or self-care (01) ==
LOC: OR 10:02
PROVIDERS: ATTEND Surgery
DX: S91.102A Unspecified open wound of left great toe without damage to nail, initial encounter (principal); I70.262 Atherosclerosis of native arteries of extremities with gangrene, left leg; I25.10 Atherosclerotic heart disease of native coronary artery without angina pectoris; J44.9 Chronic obstructive pulmonary disease, unspecified; K21.9 Gastro-esophageal reflux disease without esophagitis; E78.5 Hyperlipidemia, unspecified; E11.9 Type 2 diabetes mellitus without complications; F17.210 Nicotine dependence, cigarettes, uncomplicated; I10 Essential (primary) hypertension; F41.9 Anxiety disorder, unspecified; Z88.1 Allergy status to other antibiotic agents; Z88.2 Allergy status to sulfonamides; Z79.82 Long term (current) use of aspirin; Z79.4 Long term (current) use of insulin; Z79.899 Other long term (current) drug therapy; X58.XXXA Exposure to other specified factors, initial encounter
CPT/HCPCS: 28820; J2250; J1100; J0690; J2405; J2003; J3010; J2704; J1920

== ENCOUNTER 2025-04-11 09:58 | Inpatient (IN) | payer MEDICARE, OTHER ==
--- NOTE | 2025-04-11 11:03 | ED ---
Extremity Problem HPI - General Source: patient, RN notes reviewed Mode of arrival: ambulatory Limitations: no limitations - History of Present Illness MD Complaint: extremity pain <Zaida Sanford - Last Filed: 04/11/25 11:02> <Kj Magaña - Last Filed: 04/11/25 13:16> - General Chief complaint: Recheck/Abnormal Lab/Rx Stated complaint: Left foot infection Time Seen by Provider: 04/11/25 10:50 - History of Present Illness Initial comments: Quick Note: This is a 59-year-old female who presents to the emergency department for concerns of a left foot infection. Patient had her left great toe amputated last month. States that she has noticed increasing pain, swellin g, and purulent drainage. She did go to an urgent care yesterday and was started on Keflex. Denies any fevers or chills. (Zaida Sanford) This is a 59-year-old female who presents to the emergency department complain about a left foot infection. Patient states she had surgery on March [address] Haines. Patient states since then the foot has become much more painful and the area around the wound is more red swollen and there is more opening of the wound. Patient denies any fever or chills. Patient has any redness going up the foot or up the leg. Patient denies any calf tenderness. Patient states the pain is getting unbearable whereas the first 2 weeks she took no pain medicines. (Kj Magaña) - Related Data Home Medications Medication Instructions Recorded Confirmed Aspirin EC [Ecotrin Low Dose] 81 mg PO DAILY 03/03/24 03/17/25 Insulin Degludec [Tresiba 30 units SQ HS 02/27/25 03/17/25 Flextouch U-100 Pen] Insulin Regular, Human [NovoLIN R] See Protocol SQ TID 02/27/25 03/17/25 Clindamycin [Cleocin] 150 mg PO TID 03/13/25 03/17/25 Furosemide [Lasix] 40 mg PO DAILY 03/13/25 03/17/25 Albuterol Sulfate [Proair 1 puff INHALATION DAILY PRN 03/17/25 03/17/25 Respiclick] Previous Rx's Medication Instructions Recorded Clopidogrel [Plavix] 75 mg PO DAILY #30 tab 05/08/24 Metoprolol Succinate (ER) [Toprol 25 mg PO DAILY #30 tab 05/08/24 XL] amLODIPine [Norvasc] 10 mg PO DAILY #30 tab 05/08/24 cloNIDine HCL 0.2 mg PO BID #60 tablet 02/28/25 HYDROcodone/APAP 5-325MG [Mystic 1 tab PO Q6HR PRN 3 Days #12 tab 03/17/25 5-325] Allergies Allergy/AdvReac Type Severity Reaction Status Date / Time ciprofloxacin [From Cipro] AdvReac Nausea & Verified 04/11/25 10:16 Vomiting ciprofloxacin HCl AdvReac Nausea & Verified 04/11/25 10:16 [From Cipro] Vomiting nitrofurantoin AdvReac Nausea Verified 04/11/25 10:16 sulfamethoxazole AdvReac Dyspnea Verified 04/11/25 10:16 [From Bactrim] trimethoprim [From Bactrim] AdvReac Dyspnea Verified 04/11/25 10:16 Review of Systems ROS Other: All systems not noted in ROS Statement are negative. <Zaida Sanford - Last Filed: 04/11/25 11:02> ROS Other: All systems not noted in ROS Statement are negative. <Kj Magaña - Last Filed: 04/11/25 13:16> ROS Statement: Those systems with pertinent positive or pertinent negative responses have been documented in the HPI. Past Medical History Past Medical History: Asthma, Blood Disorder, Coronary Artery Disease (CAD), Diabetes Mellitus, Eye Disorder, GERD/Reflux, Hyperlipidemia, Hypertension, Myocardial Infarction ([place]), Pneumonia, Skin Disorder, Vascular Disorder Additional Past Medical History / Comment(s): Type II diabetic IDDM. 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 Poor circulation to left leg. IBD. hx anemia. left foot great toe gangrene. Last Myocardial Infarction Date:: 05/2015 History of Any Multi-Drug Resistant Organisms: CRE, ESBL Date of last positivie culture/infection: 05/06/24 - ESBL & CRE MDRO Source:: LEFT FOOT Past Surgical History: Heart Catheterization, Heart Catheterization With Stent, Joint Replacement, Orthopedic Surgery Additional Past Surgical History / Comment(s): boil under armpit(2000) Cardiac stent x3. Stent to left leg February 2024. Left 5th toe amputation April 2024. Past Anesthesia/Blood Transfusion Reactions: Previous Problems w/ Anesthesia Additional Past Anesthesia/Blood Transfusion Reaction / Comment(s): No hx of blood transfusion. pt states went into cardiac arrest prior to toe debridement last year March 2024, states she was told received too much anesthesia. Date of Last Stent Placement:: 04/29/2024 Past Psychological History: Anxiety Smoking Status: Former smoker Past Alcohol Use History: None Reported Past Drug Use History: None Reported - Past Family History Mother Family Medical History: Hypertension Additional Family Medical History / Comment(s): borderline diabetic Father Family Medical History: Cancer Additional Family Medical History / Comment(s): leukemia, stents placed, at 81 years old <Zaida Sanford - Last Filed: 04/11/25 11:02> General Exam Limitations: no limitations <Zaida Sanford - Last Filed: 04/11/25 11:02> <Kj Magaña - Last Filed: 04/11/25 13:16> - General Exam Comments Initial Comments: Visual Physical Exam Vital signs reviewed General: Well-appearing, nontoxic, no acute distress. Head: Normocephalic, atraumatic Eyes: PERRLA, EOMI ENT: Airway patent Chest: Nonlabored breathing Skin: No visual rash, normal skin tone Neuro: Alert and oriented 3 Musculoskeletal: No gross abnormalities (Zaida Sanford) GENERAL: Patient is well-developed and well-nourished. Patient is nontoxic and well- hydrated and is in mild distress. ENT: Neck is soft and supple. No significant lymphadenopathy is noted. Oropharynx is clear. Moist mucous membranes. Neck has full range of motion without eliciting any pain. EYES: The sclera were anicteric and conjunctiva were pink and moist. Extraocular movements were intact and pupils were equal round and reactive to light. Eyelids were unremarkable. PULMONARY: Unlabored respirations. Good breath sounds bilaterally. No audible rales rhonchi or wheezing was noted. CARDIOVASCULAR: There is a regular rate and rhythm without any murmurs gallops or rubs. ABDOMEN: Soft and nontender with normal bowel sounds. SKIN: Skin is clear with no lesions or rashes and otherwise unremarkable. NEUROLOGIC: Patient is alert and oriented x3. Cranial nerves II through XII are grossly intact. Motor and sensory are also intact. Normal speech, volume and content. Symmetrical smile. MUSCULOSKELETAL: Left foot incision is red all around it extremely tender there is no drainage at this time however. LYMPHATICS: No significant lymphadenopathy is noted PSYCHIATRIC: Normal psychiatric evaluation. (Kj Magaña) Course Vital Signs 04/11/25 10:14 Temperature 97.8 F Pulse Rate 82 Respiratory 20 Rate Blood Pressure 145/67 O2 Sat by Pulse 99 Oximetry Medical Decision Making <Zaida Sanford - Last Filed: 04/11/25 11:02> - Lab Data Result diagrams: 04/11/25 11:29 04/11/25 11:29 <Kj Magaña - Last Filed: 04/11/25 13:16> - Medical Decision Making I performed the QuickNote portion of this chart. Signed Zaida Sanford PA-C. (Zaida Sanford) Was pt. sent in by a medical professional or institution (GIOVANNI Gordillo, ASSIGNMENT EDITOR, urgent care, hospital, or skilled nursing...) When possible be specific @ -No Did you speak to anyone other than the patient for history (EMS, parent, family, police, friend...)? What history was obtained from this source @ -No Did you review nursing and triage notes (agree or disagree)? Why? @ -I reviewed and agree with nursing and triage notes Were old charts reviewed (outside hosp., previous admission, EMS record, old EKG, old radiological studies, urgent care reports/EKG's, skilled nursing records)? Report findings @ -No old charts were reviewed Differential Diagnosis? @ -Osteomyelitis, infected postop wound, DVT, this is not an all-inclusive list EKG interpreted by me (3pts min.). @ -As above X-rays interpreted by me (1pt min.). @ -X-ray of the foot showed haziness of the first metatarsal consistent with possible osteomyelitis CT interpreted by me (1pt min.). @ -None done U/S interpreted by me (1pt. min.). @ -None done What testing was considered but not performed or refused? (CT, X-rays, U/S, labs)? Why? @ -None What meds were considered but not given or refused? Why? @ -None Did you discuss the management of the patient with other professionals (professionals i.e. DrAsim, PA, ASSIGNMENT EDITOR, lab, RT, psych nurse, social work specialist, home health care worker, teacher, ammunition officer, welfare case worker)? Give summary @ -I spoke with Dr. Allen he agreed to admit the patient admitted the patient and her consulted Dr. aHines Was smoking cessation discussed for >3mins.? @ -No Was critical care preformed (if so, how long)? @ -No Were there social determinants of health that impacted care today? How? (Homelessness, low income, unemployed, alcoholism, drug addiction, transportation, low edu. Level, literacy, decrease access to med. care, [place] [facility], rehab)? @ -No Was there de-escalation of care discussed even if they declined (Discuss DNR or withdrawal of care, Hospice)? DNR status @ -No What co-morbidities impacted this encounter? (DM, HTN, Smoking, COPD, CAD, Cancer, CVA, ARF, Chemo, Hep., AIDS, mental health diagnosis, sleep apnea, morbid obesity)? @ -None Was patient admitted / discharged? Hospital course, mention meds given and route, prescriptions, significant lab abnormalities, going to OR and other pertinent info. @ -Patient's wound looks red sore and the x-ray showed haziness at the distal aspect. Patient did not have a white count however I did start the patient on Zosyn and vancomycin. I admitted the patient Dr. Allen and consult with Dr. Haines Undiagnosed new problem with uncertain prognosis? @ -No Drug Therapy requiring intensive monitoring for toxicity (Heparin, Nitro, Insulin, Cardizem)? @ -No Were any procedures done? @ -No Diagnosis/symptom? @ -Osteomyelitis first metatarsal left Acute, or Chronic, or Acute on Chronic? @ -Default Uncomplicated (without systemic symptoms) or Complicated (systemic symptoms)? @ -Acute Side effects of treatment? @ -No Exacerbation, Progression, or Severe Exacerbation? @ -No Poses a threat to life or bodily function? How? (Chest pain, [place], [place], pneumonia, PE, COPD, DKA, ARF, appy, cholecystitis, CVA, Diverticulitis, Homicidal, Suicidal, threat to staff... and all critical care pts) @ -Yes this could lead to sepsis and endorgan dysfunction (Kj Magaña) - Lab Data Lab Results 04/11/25 04/11/25 04/11/25 Range/Units 11:29 11:29 11:29 WBC 7.61 (4.50-10.00) 10*3/uL RBC 4.73 (4.10-5.20) 10*6/uL Hgb 12.7 (12.0-15.0) g/dL Hct 39.7 (37.2-46.3) % MCV 83.9 (80.0-97.0) fL MCH 26.8 L (27.0-32.0) pg MCHC 32.0 (32.0-37.0) g/dL Plt Count 323 (140-440) 10*3/uL MPV 9.3 L (9.5-12.2) fL Immature Gran % (Auto) 0.3 % Neutrophils % 79.0 % Lymphocytes % 13.1 % Monocytes % 5.7 % Eosinophils % 1.4 % Basophils % 0.5 % Immature Gran # 0.02 (0.00-0.04) 10*3/uL Neutrophils # 6.01 (1.80-7.70) 10*3/uL Lymphocytes # 1.00 (0.90-5.00) 10*3/uL Monocytes # 0.43 (0.20-1.00) 10*3/uL Eosinophils # 0.11 (0.04-0.35) 10*3/uL Basophils # 0.04 (0.00-0.10) 10*3/uL Sodium 134 L (137-145) mmol/L Potassium 4.4 (3.5-5.1) mmol/L Chloride 99 (98-107) mmol/L Carbon Dioxide 24 (22-30) mmol/L Anion Gap 11 mmol/L BUN 22 H (7-17) mg/dL Creatinine 0.97 (0.52-1.04) mg/dL Est GFR (CKD-EPI)AfAm 73 (>60 ml/min/1.73 sqM) Est GFR (CKD-EPI)NonAf 64 (>60 ml/min/1.73 sqM) Glucose 430 H (74-99) mg/dL Plasma Lactic Acid Jose Manuel 2.1 H* (0.7-2.0) mmol/L Calcium 9.1 (8.4-10.2) mg/dL Total Bilirubin 0.5 (0.2-1.3) mg/dL AST 19 (14-36) U/L ALT 13 (4-34) U/L Alkaline Phosphatase 99 (38-126) U/L C-Reactive Protein 1.7 H (<1.0) mg/dL Total Protein 6.8 (6.3-8.2) g/dL Albumin 3.9 (3.5-5.0) g/dL Disposition <Zaida Sanford - Last Filed: 04/11/25 11:02> Time of Disposition: 13:15 <Kj Magaña - Last Filed: 04/11/25 13:16> Clinical Impression: Osteomyelitis of metatarsal, Hyperglycemia Disposition: ADMITTED IP TO THIS HOSP Referrals: Dylon Cortes MD [Primary Care Provider] - 1-2 days
--- NOTE | 2025-04-11 11:47 | XR ---
EXAMINATION TYPE: XR foot complete LT DATE OF EXAM: 04/11/2025 11:18 AM COMPARISON: 02/27/2025. CLINICAL INDICATION: Female, 59 years old with history of Postop pain; PHH, pain TECHNIQUE: XR foot complete LT examined in the AP, oblique, and lateral projections. FINDINGS: Postsurgical changes of the first digit with indication of the mid metatarsal. Additional indentation of the fifth digit mid metatarsal. There is mild hazy margin of the first digit amputation site. Richard caneal plantar spurring. Atherosclerosis of the arterial vasculature. IMPRESSION: 1. Hazy margin of the first digit metatarsal at the patient's site consider three-phase bone scan fo r further evaluation for ostomy device. 2. Remote fracture of the second metatarsal. [facility], , 04/11/2025 11:45 AM
[2025-04-11 11:54] LABS: Basophils # (A) 0.04 10*3/uL (0.00-0.10); Basophils % (A) 0.5 %; Eosinophils # (A) 0.11 10*3/uL (0.04-0.35); Eosinophils % (A) 1.4 %; HCT 39.7 % (37.2-46.3); HGB 12.7 g/dL (12.0-15.0); Lymphocytes % (A) 13.1 %; MCH 26.8 pg (27.0-32.0); MCV 83.9 fL (80.0-97.0); Mean Platelet Volume 9.3 fL (9.5-12.2); Monocytes # (A) 0.43 10*3/uL (0.20-1.00); Monocytes % (A) 5.7 %; Neutrophils # (A) 6.01 10*3/uL (1.80-7.70); Platelet Count 323 10*3/uL (140-440); RBC 4.73 10*6/uL (4.10-5.20); RDW 15.4 % (11.5-14.5); WBC 7.61 10*3/uL (4.50-10.00)
[2025-04-11 12:04] LABS: ALT 13 U/L (4-34); AST 19 U/L (14-36); African American GFR (CKD) 73 (>60 ml/min/1.73 sqM); Albumin 3.9 g/dL (3.5-5.0); Alkaline Phosphatase 99 U/L (38-126); Anion Gap 11 mmol/L; Blood Urea Nitrogen 22 mg/dL (7-17); C Reactive Protein 1.7 mg/dL (<1.0); Calcium 9.1 mg/dL (8.4-10.2); Carbon Dioxide 24 mmol/L (22-30); Chloride 99 mmol/L (98-107); Glucose 430 mg/dL (74-99); Non-African American GFR(CKD) 64 (>60 ml/min/1.73 sqM); Potassium 4.4 mmol/L (3.5-5.1); Sodium 134 mmol/L (137-145); Total Bilirubin 0.5 mg/dL (0.2-1.3); Total Protein 6.8 g/dL (6.3-8.2)
[2025-04-11 13:17] LABS: Glucose,Whole Blood 373 mg/dL (70-110)
[2025-04-11] MEDS ORDERED: DEXTROSE 50% SYRINGE 50 ML IVP PRN ×2 (13:17)
[2025-04-11] MEDS: PIPERACILLIN-TAZOBACTAM 3.375 GM in SODIUM CHLORIDE 0.9% 100 ML IVPB STA (13:29)
[2025-04-11] MEDS: SODIUM CHLORIDE 0.9% 1,000 ML IV ONE (13:30)
--- NOTE | 2025-04-11 14:40 | P.GSCN ---
History of Present Illness Consult date: 04/11/25 Reason for Consult: Osteomyelitis first metatarsal Requesting physician: Kj Magaña History of present illness: This a pleasant 59-year-old female with a history of diabetes mellitus, left lower extremity edema, previous fifth toe amputation and most recently great toe amputation secondary to gangrene on 03/17/[address] Haines. Patient states she saw him 2 weeks postop and she did have some drainage, she saw him again in the office this past week as a follow-up he remove the rest of her farhan, and he did put her on oral Keflex. She started getting more redness and drainage in the incision had opened she went to urgent care yesterday and they put her on Keflex again 4 times a day. Due to increased swelling and redness and now it opening she came into the emergency department for further evaluation for concern for infection. She has not been to the wound care center since previous to surgery. She has an appointment this upcoming Monday and . She had an x-ray of the left foot with concerns for possible osteomyelitis and vascular surgery was consulted. Patient denies any fever or chills. States yesterday there was quite a bit of blood coming from that area. She does have tenderness and increased swelling. She states that she has lower extremity swelling left is always greater than right. Review of Systems A 14 point review systems was completed all pertinent positives and negatives as stated in the HPI. Past Medical History Past Medical History: Asthma, Blood Disorder, Coronary Artery Disease (CAD), Diabetes Mellitus, Eye Disorder, GERD/Reflux, Hyperlipidemia, Hypertension, Myocardial Infarction ([place]), Pneumonia, Skin Disorder, Vascular Disorder Additional Past Medical History / Comment(s): Type II diabetic IDDM. 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 Poor circulation to left leg. IBD. hx anemia. left foot great toe gangrene. Last Myocardial Infarction Date:: 05/2015 History of Any Multi-Drug Resistant Organisms: CRE, ESBL Year Discovered:: 05/06/24 - ESBL & CRE MDRO Source:: LEFT FOOT Past Surgical History: Heart Catheterization, Heart Catheterization With Stent, Joint Replacement, Orthopedic Surgery Additional Past Surgical History / Comment(s): boil under armpit(2000) Cardiac stent x3. Stent to left leg February 2024. Left 5th toe amputation April 2024. Past Anesthesia/Blood Transfusion Reactions: Previous Problems w/ Anesthesia Additional Past Anesthesia/Blood Transfusion Reaction / Comm: No hx of blood transfusion. pt states went into cardiac arrest prior to toe debridement last year March 2024, states she was told received too much anesthesia. Date of Last Stent Placement:: 04/29/2024 Past Psychological History: Anxiety Smoking Status: Former smoker Past Alcohol Use History: None Reported Past Drug Use History: None Reported - Past Family History Mother Family Medical History: Hypertension Additional Family Medical History / Comment(s): borderline diabetic Father Family Medical History: Cancer Additional Family Medical History / Comment(s): leukemia, stents placed, at 81 years old Medications and Allergies Home Medications Medication Instructions Recorded Confirmed Type Aspirin EC [Ecotrin Low Dose] 81 mg PO DAILY 03/03/24 04/11/25 History Clopidogrel [Plavix] 75 mg PO DAILY #30 tab 05/08/24 04/11/25 Rx Metoprolol Succinate (ER) [Toprol 25 mg PO DAILY #30 tab 05/08/24 04/11/25 Rx XL] amLODIPine [Norvasc] 10 mg PO DAILY #30 tab 05/08/24 04/11/25 Rx Insulin Degludec [Tresiba 30 units SQ HS 02/27/25 04/11/25 History Flextouch U-100 Pen] Insulin Regular, Human [NovoLIN R] See Protocol SQ TID 02/27/25 04/11/25 History Acetaminophen Tab [Tylenol] 1,000 mg PO Q6H PRN 04/11/25 04/11/25 History Albuterol Sulfate [Albuterol 2 puff INHALATION RT-QID PRN 04/11/25 04/11/25 History Sulfate Hfa] Cephalexin [Keflex] 500 mg PO Q6H 04/11/25 04/11/25 History Cyanocobalamin [Vitamin B-12 1,000 mcg SQ Q30D 04/11/25 04/11/25 History Injection] Furosemide [Lasix] 20 mg PO BID 04/11/25 04/11/25 History Allergies Allergy/AdvReac Type Severity Reaction Status Date / Time cephalexin [From Keflex] AdvReac Nausea & Verified 04/11/25 14:01 Vomiting & Diarrhea ciprofloxacin [From Cipro] AdvReac Nausea & Verified 04/11/25 14:01 Vomiting ciprofloxacin HCl AdvReac Nausea & Verified 04/11/25 14:01 [From Cipro] Vomiting nitrofurantoin AdvReac Nausea Verified 04/11/25 14:01 sulfamethoxazole AdvReac Dyspnea Verified 04/11/25 14:01 [From Bactrim] trimethoprim [From Bactrim] AdvReac Dyspnea Verified 04/11/25 14:01 Surgical - Exam Vital Signs Temp Pulse Resp BP Pulse Ox 97.8 F 82 20 145/67 99 04/11/25 10:14 04/11/25 10:14 04/11/25 10:14 04/11/25 10:14 04/11/25 10:14 General appearance: The patient is alert, oriented, appears in no acute distress. HET: Head is normocephalic and atraumatic. Pupils are equal and reactive. Neck: Supple. Heart: Regular. Lungs: Equal expansion, normal respiratory effort. Abdomen: Soft, nontender, nondistended. Extremities: Bilateral lower extremity swelling, left greater than right with +2 pitting edema. Faint palpable DP pulse, multiphasic PT DP signal. Left foot great toe amputation surgical site surrounding erythema, serosanguineous drainage, subcutaneous fat tissue and soft tissue. Previous fifth toe amputation well-healed. Neurological: Alert and oriented.. Results - Labs 04/11/25 11:29 04/11/25 11:29 Abnormal Lab Results - Last 24 Hours (Table) 04/11/25 04/11/25 04/11/25 Range/Units 11:29 11:29 11:29 MCH 26.8 L (27.0-32.0) pg MPV 9.3 L (9.5-12.2) fL Sodium 134 L (137-145) mmol/L BUN 22 H (7-17) mg/dL Glucose 430 H (74-99) mg/dL POC Glucose (mg/dL) (70-110) mg/dL Plasma Lactic Acid Jose Manuel 2.1 H* (0.7-2.0) mmol/L C-Reactive Protein 1.7 H (<1.0) mg/dL 04/11/25 Range/Units 13:14 MCH (27.0-32.0) pg MPV (9.5-12.2) fL Sodium (137-145) mmol/L BUN (7-17) mg/dL Glucose (74-99) mg/dL POC Glucose (mg/dL) 373 H (70-110) mg/dL Plasma Lactic Acid Jose Manuel (0.7-2.0) mmol/L C-Reactive Protein (<1.0) mg/dL Diabetes panel 04/11/25 Range/Units 11:29 Sodium 134 L (137-145) mmol/L Potassium 4.4 (3.5-5.1) mmol/L Chloride 99 (98-107) mmol/L Carbon Dioxide 24 (22-30) mmol/L BUN 22 H (7-17) mg/dL Creatinine 0.97 (0.52-1.04) mg/dL Glucose 430 H (74-99) mg/dL Calcium 9.1 (8.4-10.2) mg/dL AST 19 (14-36) U/L ALT 13 (4-34) U/L Alkaline Phosphatase 99 (38-126) U/L Total Protein 6.8 (6.3-8.2) g/dL Albumin 3.9 (3.5-5.0) g/dL Calcium panel 04/11/25 Range/Units 11:29 Calcium 9.1 (8.4-10.2) mg/dL Albumin 3.9 (3.5-5.0) g/dL Pituitary panel 04/11/25 Range/Units 11:29 Sodium 134 L (137-145) mmol/L Potassium 4.4 (3.5-5.1) mmol/L Chloride 99 (98-107) mmol/L Carbon Dioxide 24 (22-30) mmol/L BUN 22 H (7-17) mg/dL Creatinine 0.97 (0.52-1.04) mg/dL Glucose 430 H (74-99) mg/dL Calcium 9.1 (8.4-10.2) mg/dL Adrenal panel 04/11/25 Range/Units 11:29 Sodium 134 L (137-145) mmol/L Potassium 4.4 (3.5-5.1) mmol/L Chloride 99 (98-107) mmol/L Carbon Dioxide 24 (22-30) mmol/L BUN 22 H (7-17) mg/dL Creatinine 0.97 (0.52-1.04) mg/dL Glucose 430 H (74-99) mg/dL Calcium 9.1 (8.4-10.2) mg/dL Total Bilirubin 0.5 (0.2-1.3) mg/dL AST 19 (14-36) U/L ALT 13 (4-34) U/L Alkaline Phosphatase 99 (38-126) U/L Total Protein 6.8 (6.3-8.2) g/dL Albumin 3.9 (3.5-5.0) g/dL - Imaging Comments: Left foot x-ray reports hazy margin of the first digit metatarsal at the patient's site consider three-phase bone scan for further evaluation for osteo mellitus. Remote fracture of the second metatarsal. Assessment and Plan Assessment: 1. Infected surgical incision of left great toe amputation site done 03/17/2025 2. Possible osteomyelitis of first metatarsal 3. Diabetes mellitus 4. Chronic lower extremity swelling 5. History of coronary artery disease status post stenting on Plavix and aspirin Plan: 1. Wound cultures ordered 2. Infectious disease on consultation for antibiotic recommendations 3. Antibiotics per recommendations from infectious disease 4. Patient will likely need surgical debridement, will allow for antibiotics for couple days possibly schedule Monday or Monday of next week 5. ROSETTA hose to lower extremities for swelling Thank you for this consultation, we will continue to follow. The impression and plan of care has been dictated as directed. Dr.cuello Cha performed a history and examination of this patient, discussed the same with the dictator. I agree with the dictator's note ,documented as a scribe. Any additional findings or plans will be noted.
[2025-04-11] MEDS: FUROSEMIDE 20 MG TAB PO SCH (15:55)
[2025-04-11] MEDS: PIPERACILLIN-TAZOBACTAM 3.375 GM in SODIUM CHLORIDE 0.9% 100 ML IVPB SCH (15:56)
[2025-04-11 17:29] LABS: Glucose,Whole Blood 369 mg/dL (70-110)
[2025-04-11] MEDS: INSULIN LISPRO (HumaLOG) 100 UNIT/ML 10 mL VL SQ SCH (17:45)
[2025-04-11] MEDS ORDERED: ACETAMINOPHEN TAB 500 MG TAB PO PRN (20:52)
[2025-04-11] MEDS ORDERED: ALBUTEROL NEBULIZED 2.5 MG/3 ML INHALATION PRN (20:52)
[2025-04-11 20:56] LABS: Glucose,Whole Blood 331 mg/dL (70-110)
--- NOTE | 2025-04-11 21:03 | P.HPIM ---
History of Present Illness H&P Date: 04/11/25 Chief Complaint: Infected foot wound Patient is a 59-year-old female, follows with Dr. Cortes History of coronary disease status post stent placement, diabetes type 2 insulin-dependent, hypertension, asthma and history of retinitis pigmentosa, anxiety 03/05/2024: CT angiogram of the abdomen aorta with runoff showed heavily calcified bilateral lower extremity arterial vasculature involving the superficial femoral arteries and extending inferiorly to the popliteal artery to the feet is limited due to severe atherosclerotic plaque. March 28, 2024: Left fifth toe ray amputation carried out by Dr. Ledesma. April 26, 2024: t cardiac catheterization by Dr. Andrea Donahue-: Long segment of severe stenosis 80 to 90% RCA. Circumflex 30%. LAD is diffusely diseased subtotally occluded in its midportion. Severe stenosis within the stent. Stent to the RCA In February of this year 2024 patient developed gangrene of left big toe. On March 17 underwent left great toe amputation with Dr. Haines. Patient followed up with Dr. Haines in 2 weeks. Had noticed some redness. She was given Keflex to return in 1 week. When she returned it was still somewhat red and the stitches were taken off. And Steri-Strips were placed. Patient presents now with worsening redness. Some drainage. Denies any fever or chills. Some local discomfort. Started on IV Zosyn. Review of systems: GEN.: None EYES: None HEENT: None NECK: None RESPIRATORY: None CARDIOVASCULAR: None GASTROINTESTINAL: None GENITOURINARY: None MUSCULOSKELETAL: Joint pains, as above LYMPHATICS: None HEMATOLOGICAL: None PSYCHIATRY: None NEUROLOGICAL: None Social history: Lives with her parents. No alcohol. Patient smoked 1 pack a day from 1983 through 1997. On examination: VITAL SIGNS: 97.7, 75, 17, 177 x 83, 97% room GENERAL APPEARANCE: Sitting up bed, comfortable HEENT: Normal external appearance of nose and ear. Oral cavity normal EYES: Pupils equal. Conjunctiva normal. NECK: JVD not raised. Mass not palpable. RESPIRATORY: Respiratory effort normal. Lungs clear to auscultation. CARDIOVASCULAR: First and second sounds normal. No edema. ABDOMEN: Soft. Liver and spleen not palpable. No tenderness. No mass palpable. PSYCHIATRY: Alert and oriented x3. Mood and affect normal. EXTREMITIES: Left foot: At the site of the left big toe incision site. Red and swollen lips. Slight drainage. INVESTIGATIONS, reviewed in the clinical context: April 11: White count 7.6 hemoglobin 12.7 platelets 323 potassium 4.4 creatinine 0.97 lactic acid 2.1 CRP 1.7 blood glucose 430 Previous investigations May 08, 2024: Creatinine 1.4 CT angiogram: February 2022 heavily calcified bilateral lower extremity arterial vasculature involving the superficial femoral arteries. Extending inferiorly. Extending into the femoral artery then is limited due to severe atherosclerotic plaque. Multiple areas of high-grade stenosis. Assessment and plan: -Acute infection of the incision of left big toe amputation that was done on March [address] Haines. Patient had tried 1 week of outpatient Keflex. Failed outpatient treatment. Elevated white count with lactic acidosis. IV Zosyn. Gentle hydration because of low EF Consultation to ID and vascular -Ischemic cardiomyopathy, chronic EF 35 to 40% Lasix 20 mg twice daily -Severe triple-vessel coronary artery disease. Coronary artery disease, with last stent to the RCA April 2024 Plavix, aspirin -Severe peripheral arterial disease Patient's had left foot little finger amputated Aspirin, Plavix Lipitor-has had some problems in the past -Diabetes type 2 insulin-dependent, uncontrolled with hyperglycemia secondary infection Lantus. 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 Past Medical History Past Medical History: Asthma, Blood Disorder, Coronary Artery Disease (CAD), Diabetes Mellitus, Eye Disorder, GERD/Reflux, Hyperlipidemia, Hypertension, Myocardial Infarction ([place]), Pneumonia, Skin Disorder, Vascular Disorder Additional Past Medical History / Comment(s): Type II diabetic IDDM. 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 Poor circulation to left leg. IBD. hx anemia. left foot great toe gangrene amputated mar 17 2025 Last Myocardial Infarction Date:: 05/2015 History of Any Multi-Drug Resistant Organisms: CRE, ESBL, MRSA Date of last positivie culture/infection: 05/06/24 - ESBL & CRE MDRO Source:: LEFT FOOT Past Surgical History: Heart Catheterization, Heart Catheterization With Stent, Joint Replacement, Orthopedic Surgery Additional Past Surgical History / Comment(s): boil under armpit(2000) Cardiac stent x3. Stent to left leg February 2024. Left 5th toe amputation April 2024 where patient coded due to too much anesthetics because she lost weight in 3 weeks and when she came back they miscalculated due to weight. Past Anesthesia/Blood Transfusion Reactions: Previous Problems w/ Anesthesia Additional Past Anesthesia/Blood Transfusion Reaction / Comment(s): No hx of blood transfusion. pt states went into cardiac arrest prior to toe debridement last year March 2024, states she was told received too much anesthesia. Date of Last Stent Placement:: 04/29/2024 Smoking Status: Former smoker - Past Family History Mother Family Medical History: Hypertension Additional Family Medical History / Comment(s): borderline diabetic Father Family Medical History: Cancer Additional Family Medical History / Comment(s): leukemia, stents placed, at 81 years old Medications and Allergies Home Medications Medication Instructions Recorded Confirmed Type Aspirin EC [Ecotrin Low Dose] 81 mg PO DAILY 03/03/24 04/11/25 History Clopidogrel [Plavix] 75 mg PO DAILY #30 tab 05/08/24 04/11/25 Rx Metoprolol Succinate (ER) [Toprol 25 mg PO DAILY #30 tab 05/08/24 04/11/25 Rx XL] amLODIPine [Norvasc] 10 mg PO DAILY #30 tab 05/08/24 04/11/25 Rx Insulin Degludec [Tresiba 30 units SQ HS 02/27/25 04/11/25 History Flextouch U-100 Pen] Insulin Regular, Human [NovoLIN R] See Protocol SQ TID 02/27/25 04/11/25 History Acetaminophen Tab [Tylenol] 1,000 mg PO Q6H PRN 04/11/25 04/11/25 History Albuterol Sulfate [Albuterol 2 puff INHALATION RT-QID PRN 04/11/25 04/11/25 History Sulfate Hfa] Cephalexin [Keflex] 500 mg PO Q6H 04/11/25 04/11/25 History Cyanocobalamin [Vitamin B-12 1,000 mcg SQ Q30D 04/11/25 04/11/25 History Injection] Furosemide [Lasix] 20 mg PO BID 04/11/25 04/11/25 History Allergies Allergy/AdvReac Type Severity Reaction Status Date / Time cephalexin [From Keflex] AdvReac Nausea & Verified 04/11/25 18:49 Vomiting & Diarrhea ciprofloxacin [From Cipro] AdvReac Nausea & Verified 04/11/25 18:49 Vomiting ciprofloxacin HCl AdvReac Nausea & Verified 04/11/25 18:49 [From Cipro] Vomiting nitrofurantoin AdvReac Nausea Verified 04/11/25 18:49 sulfamethoxazole AdvReac Dyspnea Verified 04/11/25 18:49 [From Bactrim] trimethoprim [From Bactrim] AdvReac Dyspnea Verified 04/11/25 18:49 Physical Exam Vitals: Vital Signs Temp Pulse Pulse Resp BP BP Pulse Ox 04/11/25 19:22 97.7 F 75 17 177/83 97 04/11/25 16:00 72 17 158/66 97 04/11/25 13:18 78 17 182/78 99 04/11/25 10:14 97.8 F 82 20 145/67 99 Intake and Output 04/11/25 04/11/25 04/11/25 06:59 14:59 22:59 Other: Weight 86.183 kg 86.183 kg Results CBC & Chem 7: 04/11/25 11:29 04/11/25 11:29 Labs: Abnormal Lab Results - Last 24 Hours (Table) 04/11/25 04/11/25 04/11/25 Range/Units 11:29 11:29 11:29 MCH 26.8 L (27.0-32.0) pg MPV 9.3 L (9.5-12.2) fL Sodium 134 L (137-145) mmol/L BUN 22 H (7-17) mg/dL Glucose 430 H (74-99) mg/dL POC Glucose (mg/dL) (70-110) mg/dL Hemoglobin A1c (<=6.0) % Plasma Lactic Acid Jose Manuel 2.1 H* (0.7-2.0) mmol/L C-Reactive Protein 1.7 H (<1.0) mg/dL 06/13/25 06/13/25 06/13/25 Range/Units 13:14 14:35 17:28 MCH (27.0-32.0) pg MPV (9.5-12.2) fL Sodium (137-145) mmol/L BUN (7-17) mg/dL Glucose (74-99) mg/dL POC Glucose (mg/dL) 373 H 369 H (70-110) mg/dL Hemoglobin A1c 9.0 H (<=6.0) % Plasma Lactic Acid Jose Manuel (0.7-2.0) mmol/L C-Reactive Protein (<1.0) mg/dL
[2025-04-11] MEDS: INSULIN GLARGINE (LANTUS) 100 UNIT/ML SYR SQ SCH (21:11)
--- NOTE | 2025-04-11 22:29 | P.CONS ---
History of Present Illness - Reason for Consult Consult date: 04/11/25 Foot infection Requesting physician: Kj Magaña - Chief Complaint Left foot amputation site wound swelling and redness x few days - History of Present Illness Patient is a 59-year-old female with a past medical history significant for multiple comorbidities including hypertension hyperlipidemia reflux diabetes mellitus asthma in this patient who is status post left big toe amputation secondary to gangrene on 03/17/[address] Haines that was done as an outpatient patient mention she was not on antibiotic therapy subsequently the patient has seen the surgeon twice on a follow-up visit and on the last visit she was started on Keflex concerning for wound infection as there was dehiscence of the wound but no culture were obtained patient is now presenting to the hospital concerning for increasing pain swelling and purulent drainage from the right big toe amputation site that apparently has been getting worse over the last few days patient denies high-grade fever or any chills patient is breathing comfortably on room air no chest pain shortness of breath or cough no nausea vomiting no abdominal pain or diarrhea she did have pain to the left big toe especially when it is touched or the time of dressing changes and did have some drainage with associated swelling and redness on presentation to the hospital the patient was afebrile no fever have recorded subsequently patient was not tachycardic hypotensive or hypoxic patient did have a white count of 7.61 creatinine 0.97 local culture has been obtained, patient was empirically started on Zosyn infectious he was consulted for foot infection Review of Systems Positive point and negatives has been mentioned in the HPI, complete review of systems was performed and all other systems are negative Past Medical History Past Medical History: Asthma, Blood Disorder, Coronary Artery Disease (CAD), Diabetes Mellitus, Eye Disorder, GERD/Reflux, Hyperlipidemia, Hypertension, Myocardial Infarction ([place]), Pneumonia, Skin Disorder, Vascular Disorder Additional Past Medical History / Comment(s): Type II diabetic IDDM. 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 Poor circulation to left leg. IBD. hx anemia. left foot great toe gangrene. Last Myocardial Infarction Date:: 05/2015 History of Any Multi-Drug Resistant Organisms: CRE, ESBL Year Discovered:: 05/06/24 - ESBL & CRE MDRO Source:: LEFT FOOT Past Surgical History: Heart Catheterization, Heart Catheterization With Stent, Joint Replacement, Orthopedic Surgery Additional Past Surgical History / Comment(s): boil under armpit(2000) Cardiac stent x3. Stent to left leg February 2024. Left 5th toe amputation April 2024. Past Anesthesia/Blood Transfusion Reactions: Previous Problems w/ Anesthesia Additional Past Anesthesia/Blood Transfusion Reaction / Comm: No hx of blood transfusion. pt states went into cardiac arrest prior to toe debridement last year March 2024, states she was told received too much anesthesia. Date of Last Stent Placement:: 04/29/2024 Past Psychological History: Anxiety Smoking Status: Former smoker Past Alcohol Use History: None Reported Past Drug Use History: None Reported - Past Family History Mother Family Medical History: Hypertension Additional Family Medical History / Comment(s): borderline diabetic Father Family Medical History: Cancer Additional Family Medical History / Comment(s): leukemia, stents placed, at 81 years old Medications and Allergies Home Medications Medication Instructions Recorded Confirmed Type Aspirin EC [Ecotrin Low Dose] 81 mg PO DAILY 03/03/24 04/11/25 History Clopidogrel [Plavix] 75 mg PO DAILY #30 tab 05/08/24 04/11/25 Rx Metoprolol Succinate (ER) [Toprol 25 mg PO DAILY #30 tab 05/08/24 04/11/25 Rx XL] amLODIPine [Norvasc] 10 mg PO DAILY #30 tab 05/08/24 04/11/25 Rx Insulin Degludec [Tresiba 30 units SQ HS 02/27/25 04/11/25 History Flextouch U-100 Pen] Insulin Regular, Human [NovoLIN R] See Protocol SQ TID 02/27/25 04/11/25 History Acetaminophen Tab [Tylenol] 1,000 mg PO Q6H PRN 04/11/25 04/11/25 History Albuterol Sulfate [Albuterol 2 puff INHALATION RT-QID PRN 04/11/25 04/11/25 History Sulfate Hfa] Cephalexin [Keflex] 500 mg PO Q6H 04/11/25 04/11/25 History Cyanocobalamin [Vitamin B-12 1,000 mcg SQ Q30D 04/11/25 04/11/25 History Injection] Furosemide [Lasix] 20 mg PO BID 04/11/25 04/11/25 History Allergies Allergy/AdvReac Type Severity Reaction Status Date / Time cephalexin [From Keflex] AdvReac Nausea & Verified 04/11/25 18:49 Vomiting & Diarrhea ciprofloxacin [From Cipro] AdvReac Nausea & Verified 04/11/25 18:49 Vomiting ciprofloxacin HCl AdvReac Nausea & Verified 04/11/25 18:49 [From Cipro] Vomiting nitrofurantoin AdvReac Nausea Verified 04/11/25 18:49 sulfamethoxazole AdvReac Dyspnea Verified 04/11/25 18:49 [From Bactrim] trimethoprim [From Bactrim] AdvReac Dyspnea Verified 04/11/25 18:49 Physical Exam Vitals: Vital Signs Temp Pulse Resp BP Pulse Ox 04/11/25 13:18 78 17 182/78 99 04/11/25 10:14 97.8 F 82 20 145/67 99 Intake and Output 04/11/25 04/11/25 04/11/25 06:59 14:59 22:59 Other: Weight 86.183 kg GENERAL DESCRIPTION: Middle-age female lying in bed, no distress. No tachypnea or accessory muscle of respiration use. HEENT: Shows Pallor , no scleral icterus. Oral mucous membrane is dry. No pharyngeal erythema or thrush NECK: Trachea central, no thyromegaly. LUNGS: Unlabored breathing. Clear to auscultation anteriorly. No wheeze or crackle. HEART: S1, S2, regular rate and rhythm. No loud murmur ABDOMEN: Soft, no tenderness , guarding or rigidity, no organomegaly EXTREMITIES: Left big toe amputation site wound did have slough tissue surrounding swelling redness and drainage SKIN: No rash, no masses palpable. NEUROLOGICAL: The patient is awake, alert, oriented x3, mood and affect normal. Results CBC & Chem 7: 04/11/25 11:29 04/11/25 11:29 Labs: Abnormal Lab Results - Last 24 Hours (Table) 04/11/25 04/11/25 04/11/25 Range/Units 11:29 11:29 11:29 MCH 26.8 L (27.0-32.0) pg MPV 9.3 L (9.5-12.2) fL Sodium 134 L (137-145) mmol/L BUN 22 H (7-17) mg/dL Glucose 430 H (74-99) mg/dL POC Glucose (mg/dL) (70-110) mg/dL Plasma Lactic Acid Jose Manuel 2.1 H* (0.7-2.0) mmol/L C-Reactive Protein 1.7 H (<1.0) mg/dL 04/11/25 Range/Units 13:14 MCH (27.0-32.0) pg MPV (9.5-12.2) fL Sodium (137-145) mmol/L BUN (7-17) mg/dL Glucose (74-99) mg/dL POC Glucose (mg/dL) 373 H (70-110) mg/dL Plasma Lactic Acid Jose Manuel (0.7-2.0) mmol/L C-Reactive Protein (<1.0) mg/dL Assessment and Plan (1) Allergy to multiple antibiotics Current Visit: No Status: Acute Code(s): Z88.1 - ALLERGY STATUS TO OTHER ANTIBIOTIC AGENTS SNOMED Code(s): 610828695 (2) Cellulitis of left foot Current Visit: No Status: Acute Code(s): L03.116 - CELLULITIS OF LEFT LOWER LIMB SNOMED Code(s): 21023578068776990 (3) Diabetic infection of left foot Current Visit: No Status: Acute Code(s): E11.628 - TYPE 2 DIABETES MELLITUS WITH OTHER SKIN COMPLICATIONS; L08.9 - LOCAL INFECTION OF THE SKIN AND SUBCUTANEOUS TISSUE, UNSP SNOMED Code(s): 604506259 Plan: 1patient presented to hospital with increasing pain swelling redness to the left big toe amputation site wound that has failed outpatient oral Keflex ther apy and will need to cover for more resistant gram-negative to be the likely pathogen. 2patient with multiple antibiotic ALLERGIES that would limit the number of antibiotic safe to use. 3local culture have been obtained to guide further treatment therapy and patient possible will need further surgical debridement and deep culture. 4will check inflammatory markers. 5we will empirically treat with Zosyn while waiting for the culture to finalize and see clinical response We will follow on clinical condition and cultures to further adjust medication if needed Thank you for this consultation we will follow the patient along with you Dictation was produced using [employer] dictation software. please excuse any grammatical, word or spelling errors. Time with Patient: Greater than 30
[2025-04-12 06:05] LABS: Glucose,Whole Blood 178 mg/dL (70-110)
[2025-04-12] MEDS: METOPROLOL SUCCINATE (ER) 25 MG TAB.ER.24H PO SCH (09:27)
[2025-04-12] MEDS: CLOPIDOGREL 75 MG TAB PO SCH (09:27)
[2025-04-12] MEDS: amLODIPine 10 MG TAB PO SCH (09:27)
[2025-04-12] MEDS: ASPIRIN 81 MG PO SCH (09:27)
[2025-04-12 11:38] LABS: Glucose,Whole Blood 313 mg/dL (70-110)
[2025-04-12 13:09] VITALS: BMI 32.5
--- NOTE | 2025-04-12 14:21 | P.PN ---
Subjective Progress Note Date: 04/12/25 pt is doing well without any significant complaint. She is up ambulating without any stocking or hard bottom shoe Objective - Vital Signs Vital signs: Vital Signs Temp 97.9 F 04/12/25 07:32 Pulse 76 04/12/25 07:32 Resp 18 04/12/25 07:32 BP 192/78 04/12/25 07:32 Pulse Ox 97 04/12/25 07:32 FiO2 Intake & Output 04/11/25 04/12/25 04/12/25 18:59 06:59 18:59 Weight 86.183 kg 86.183 kg Other: Voiding Method Toilet # Voids 1 - Exam No acute distress. Right lower extremity with mild dehiscence and fibrinous tissue, mild erythema at the edges. No purulent drainage - Labs CBC & Chem 7: 04/11/25 11:29 04/11/25 11:29 Labs: Abnormal Lab Results - Last 24 Hours (Table) 04/11/25 04/11/25 04/11/25 Range/Units 14:35 17:28 20:54 ESR (0-30) mm/Hr POC Glucose (mg/dL) 369 H 331 H (70-110) mg/dL Hemoglobin A1c 9.0 H (<=6.0) % C-Reactive Protein (<1.0) mg/dL 04/12/25 04/12/25 04/12/25 Range/Units 06:04 07:20 07:20 ESR 47 H (0-30) mm/Hr POC Glucose (mg/dL) 178 H (70-110) mg/dL Hemoglobin A1c (<=6.0) % C-Reactive Protein 1.8 H (<1.0) mg/dL 04/12/25 Range/Units 11:37 ESR (0-30) mm/Hr POC Glucose (mg/dL) 313 H (70-110) mg/dL Hemoglobin A1c (<=6.0) % C-Reactive Protein (<1.0) mg/dL Assessment and Plan Assessment: Left toe wound status post amputation Plan: discussed with the patient the importance of utilizing hard bottom shoe. Continue with local wound care and IV antibiotics
[2025-04-12 16:42] LABS: Glucose,Whole Blood 323 mg/dL (70-110)
--- NOTE | 2025-04-12 18:29 | P.PN ---
Progress Note - Text Progress Note Date: 04/12/25 Chief Complaint: Infected foot wound Patient is a 59-year-old female, follows with Dr. Cortes History of coronary disease status post stent placement, diabetes type 2 insulin-dependent, hypertension, asthma and history of retinitis pigmentosa, anxiety 03/05/2024: CT angiogram of the abdomen aorta with runoff showed heavily calcified bilateral lower extremity arterial vasculature involving the superficial femoral arteries and extending inferiorly to the popliteal artery to the feet is limited due to severe atherosclerotic plaque. March 28, 2024: Left fifth toe ray amputation carried out by Dr. Ledesma. April 26, 2024: t cardiac catheterization by Dr. Andrea Donahue-: Long segment of severe stenosis 80 to 90% RCA. Circumflex 30%. LAD is diffusely diseased subtotally occluded in its midportion. Severe stenosis within the stent. Stent to the RCA In February of this year 2024 patient developed gangrene of left big toe. On March 17 underwent left great toe amputation with Dr. Haines. Patient followed up with Dr. Haines in 2 weeks. Had noticed some redness. She was given Keflex to return in 1 week. When she returned it was still somewhat red and the stitches were taken off. And Steri-Strips were placed. Patient presents now with worsening redness. Some drainage. Denies any fever or chills. Some local discomfort. Started on IV Zosyn. April 12: Pain controlled. Getting IV Zosyn. No surgical intervention per vascular. ID following. Eating fair. Discussed with patient The 8 that Active Medications Acetaminophen (Acetaminophen Tab 500 Mg Tab) 1,000 mg PO Q6H PRN PRN Reason: Pain Albuterol Sulfate (Albuterol Nebulized 2.5 Mg/3 Ml) 2.5 mg INHALATION RT-QID PRN PRN Reason: Shortness Of Breath Amlodipine Besylate (Amlodipine 10 Mg Tab) 10 mg PO DAILY [facility] Last Admin: 04/12/25 09:27 Dose: 10 mg Aspirin (Aspirin 81 Mg) 81 mg PO DAILY [facility] Last Admin: 04/12/25 09:27 Dose: 81 mg Clopidogrel Bisulfate (Clopidogrel 75 Mg Tab) 75 mg PO DAILY [facility] Last Admin: 04/12/25 09:27 Dose: 75 mg Dextrose/Water (Dextrose 50% Syringe 50 Ml) 25 ml IVP PER PROTOCOL PRN; Protocol PRN Reason: Hypoglycemia Dextrose/Water (Dextrose 50% Syringe 50 Ml) 50 ml IVP PER PROTOCOL PRN; Protocol PRN Reason: Hypoglycemia Furosemide (Furosemide 20 Mg Tab) 20 mg PO BID@0900,1600 [facility] Last Admin: 04/12/25 17:09 Dose: 20 mg Piperacillin Sod/Tazobactam (Sod 3.375 gm/ Sodium Chloride) 100 mls @ 25 mls/hr IVPB Q8HR [facility]; Protocol Last Admin: 04/12/25 17:10 Dose: 25 mls/hr Insulin Glargine (Insulin Glargine (Lantus) 100 Unit/Ml Syr) 30 unit SQ HS [facility] Last Admin: 04/11/25 21:11 Dose: 30 unit Insulin Human Lispro (Insulin Lispro (Humalog) 100 Unit/Ml 10 Ml Vl) 0 unit SQ ACHS [facility]; Protocol Last Admin: 04/12/25 17:09 Dose: 8 unit Metoprolol Succinate (Metoprolol Succinate (Er) 25 Mg Tab.Er.24h) 25 mg PO DAILY [facility] Last Admin: 04/12/25 09:27 Dose: 25 mg Social history: Lives with her parents. No alcohol. Patient smoked 1 pack a day from 1983 through 1997. On examination: VITAL SIGNS: 98.4, 77, 18, 166 x 64, 96% room air GENERAL APPEARANCE: Sitting at the edge of the bed HEENT: Normal external appearance of nose and ear. Oral cavity normal EYES: Pupils equal. Conjunctiva normal. NECK: JVD not raised. Mass not palpable. RESPIRATORY: Respiratory effort normal. Lungs clear to auscultation. CARDIOVASCULAR: First and second sounds normal. No edema. ABDOMEN: Soft. Liver and spleen not palpable. No tenderness. No mass palpable. PSYCHIATRY: Alert and oriented x3. Mood and affect normal. EXTREMITIES: Left foot: At the site of the left big toe incision site. Red and swollen lips. Slight drainage. INVESTIGATIONS, reviewed in the clinical context: ESR 47 CRP 1.8 April 11: White count 7.6 hemoglobin 12.7 platelets 323 potassium 4.4 creatinine 0.97 lactic acid 2.1 CRP 1.7 blood glucose 430 Previous investigations May 08, 2024: Creatinine 1.4 CT angiogram: February 2022 heavily calcified bilateral lower extremity arterial vasculature involving the superficial femoral arteries. Extending inferiorly. Extending into the femoral artery then is limited due to severe atherosclerotic plaque. Multiple areas of high-grade stenosis. Assessment and plan: -Acute infection of the incision of left big toe amputation that was done on March [address] Haines. Patient had tried 1 week of outpatient Keflex. Failed outpatient treatment. Elevated white count with lactic acidosis. IV Zosyn. Gentle hydration because of low EF Follow-up with ID and vascular -Ischemic cardiomyopathy, chronic EF 35 to 40% Lasix 20 mg twice daily -Severe triple-vessel coronary artery disease. Coronary artery disease, with last stent to the RCA April 2024 Plavix, aspirin -Severe peripheral arterial disease Patient's had left foot little finger amputated Aspirin, Plavix Lipitor-has had some problems in the past -Diabetes type 2 insulin-dependent, uncontrolled with hyperglycemia secondary infection Lantus. 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 and nephrosclerosis Baseline creatinine 1.2 -Essential hypertension, associated with chronic kidney disease: Uncontrolled Toprol-XL 25 mg amlodipine to 10 mg a day -Intermittent asthma, not in exacerbation Albuterol as needed -Retinitis pigmentosa with loss of peripheral vision -Obesity with a BMI of 32.6 Weight loss measures -Full code Discussed with patient Past Medical History Past Medical History: Asthma, Blood Disorder, Coronary Artery Disease (CAD), Diabetes Mellitus, Eye Disorder, GERD/Reflux, Hyperlipidemia, Hypertension, Myocardial Infarction ([place]), Pneumonia, Skin Disorder, Vascular Disorder Additional Past Medical History / Comment(s): Type II diabetic IDDM. 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 Poor circulation to left leg. IBD. hx anemia. left foot great toe gangrene amputated mar 17 2025 Last Myocardial Infarction Date:: 05/2015 History of Any Multi-Drug Resistant Organisms: CRE, ESBL, MRSA Date of last positivie culture/infection: 05/06/24 - ESBL & CRE MDRO Source:: LEFT FOOT Past Surgical History: Heart Catheterization, Heart Catheterization With Stent, Joint Replacement, Orthopedic Surgery Additional Past Surgical History / Comment(s): boil under armpit(2000) Cardiac stent x3. Stent to left leg February 2024. Left 5th toe amputation April 2024 where patient coded due to too much anesthetics because she lost weight in 3 weeks and when she came back they miscalculated due to weight. Past Anesthesia/Blood Transfusion Reactions: Previous Problems w/ Anesthesia Additional Past Anesthesia/Blood Transfusion Reaction / Comment(s): No hx of blood transfusion. pt states went into cardiac arrest prior to toe debridement last year March 2024, states she was told received too much anesthesia. Date of Last Stent Placement:: 04/29/2024 Smoking Status: Former smoker
--- NOTE | 2025-04-12 19:59 | P.PN ---
Subjective Progress Note Date: 04/12/25 Principal diagnosis: Left diabetic foot ulcer/cellulitis Patient is a 59-year-old female with a past medical history significant for multiple comorbidities including hypertension hyperlipidemia reflux diabetes mellitus asthma in this patient who is status post left big toe amputation secondary to gangrene on 03/17/[address] Haines now presented the hospital with dehiscence of the wound swelling redness concern for left foot wound infection. On today's evaluation that is 04/12/2024, patient did have a temperature of 98 F this morning and denies having any chills, patient is on room air and breathing comfortably no chest pain or cough, the patient did not have any nausea vomiting abdominal pain or any diarrhea, patient pain to the left foot is currently controlled. Patient did have a sed rate of 47 creatinine is 1.8 cultures are currently pending Objective - Vital Signs Vital signs: Vital Signs Temp 98.4 F 04/12/25 14:00 Pulse 77 04/12/25 14:00 Resp 18 04/12/25 14:00 BP 166/64 04/12/25 14:00 Pulse Ox 96 04/12/25 14:00 FiO2 Intake & Output 04/11/25 04/12/25 04/12/25 18:59 06:59 18:59 Weight 86.183 kg 86.183 kg Other: Voiding Method Toilet # Voids 1 - Exam GENERAL DESCRIPTION: Middle-age female in bed in no distress RESPIRATORY SYSTEM: Unlabored breathing , decreased breath sounds at bases HEART: S1 S2 regular rate and rhythm , ABDOMEN: Soft , no tenderness EXTREMITIES: Left foot is currently dressed no drainage - Labs CBC & Chem 7: 04/11/25 11:29 04/11/25 11:29 Labs: Abnormal Lab Results - Last 24 Hours (Table) 04/11/25 04/11/25 04/12/25 Range/Units 14:35 20:54 06:04 ESR (0-30) mm/Hr POC Glucose (mg/dL) 331 H 178 H (70-110) mg/dL Hemoglobin A1c 9.0 H (<=6.0) % C-Reactive Protein (<1.0) mg/dL 04/12/25 04/12/25 04/12/25 Range/Units 07:20 07:20 11:37 ESR 47 H (0-30) mm/Hr POC Glucose (mg/dL) 313 H (70-110) mg/dL Hemoglobin A1c (<=6.0) % C-Reactive Protein 1.8 H (<1.0) mg/dL 04/12/25 Range/Units 16:38 ESR (0-30) mm/Hr POC Glucose (mg/dL) 323 H (70-110) mg/dL Hemoglobin A1c (<=6.0) % C-Reactive Protein (<1.0) mg/dL Assessment and Plan (1) Allergy to multiple antibiotics Current Visit: No Status: Acute Code(s): Z88.1 - ALLERGY STATUS TO OTHER ANTIBIOTIC AGENTS SNOMED Code(s): 486369248 (2) Cellulitis of left foot Current Visit: No Status: Acute Code(s): L03.116 - CELLULITIS OF LEFT LOWER LIMB SNOMED Code(s): 51599518140465374 (3) Diabetic infection of left foot Current Visit: No Status: Acute Code(s): E11.628 - TYPE 2 DIABETES MELLITUS WITH OTHER SKIN COMPLICATIONS; L08.9 - LOCAL INFECTION OF THE SKIN AND SUBCUTANEOUS TISSUE, UNSP SNOMED Code(s): 402962688 Plan: 1patient presented to hospital with increasing pain swelling redness to the left big toe amputation site wound that has failed outpatient oral Keflex therapy and will need to cover for more resistant gram-negative to be the likely pathogen. 2patient with multiple antibiotic ALLERGIES that would limit the number of antibiotic safe to use. 3local culture have been obtained which is currently pending may benefit from surgical debridement and deep culture. 4patient did have elevated sed rate and CRP 5she is currently being treated with Zosyn while waiting for the culture to finalize and see clinical response Dictation was produced using [employer] dictation software. please excuse any grammatical, word or spelling errors. Time with Patient: Less than 30
[2025-04-12 20:45] LABS: Glucose,Whole Blood 205 mg/dL (70-110)
[2025-04-13 07:03] LABS: Glucose,Whole Blood 290 mg/dL (70-110)
--- NOTE | 2025-04-13 10:11 | P.PN ---
Progress Note - Text Progress Note Date: 04/13/25 Chief Complaint: Infected foot wound Patient is a 59-year-old female, follows with Dr. Cortes History of coronary disease status post stent placement, diabetes type 2 insulin-dependent, hypertension, asthma and history of retinitis pigmentosa, anxiety 03/05/2024: CT angiogram of the abdomen aorta with runoff showed heavily calcified bilateral lower extremity arterial vasculature involving the superficial femoral arteries and extending inferiorly to the popliteal artery to the feet is limited due to severe atherosclerotic plaque. March 28, 2024: Left fifth toe ray amputation carried out by Dr. Ledesma. April 26, 2024: t cardiac catheterization by Dr. Andrea Donahue-: Long segment of severe stenosis 80 to 90% RCA. Circumflex 30%. LAD is diffusely diseased subtotally occluded in its midportion. Severe stenosis within the stent. Stent to the RCA In February of this year 2024 patient developed gangrene of left big toe. On March 17 underwent left great toe amputation with Dr. Haines. Patient followed up with Dr. Haines in 2 weeks. Had noticed some redness. She was given Keflex to return in 1 week. When she returned it was still somewhat red and the stitches were taken off. And Steri-Strips were placed. Patient presents now with worsening redness. Some drainage. Denies any fever or chills. Some local discomfort. Started on IV Zosyn. April 12: Pain controlled. Getting IV Zosyn. No surgical intervention per vascular. ID following. Eating fair. Discussed with patient April 13: Remains on IV Zosyn. Eating well. Pain controlled. Cultures pending. Will add Cozaar 50 mg nightly for blood pressure Active Medications Acetaminophen (Acetaminophen Tab 500 Mg Tab) 1,000 mg PO Q6H PRN PRN Reason: Pain Albuterol Sulfate (Albuterol Nebulized 2.5 Mg/3 Ml) 2.5 mg INHALATION RT-QID PRN PRN Reason: Shortness Of Breath Amlodipine Besylate (Amlodipine 10 Mg Tab) 10 mg PO DAILY [facility] Last Admin: 04/13/25 09:14 Dose: 10 mg Aspirin (Aspirin 81 Mg) 81 mg PO DAILY [facility] Last Admin: 04/13/25 09:15 Dose: 81 mg Clopidogrel Bisulfate (Clopidogrel 75 Mg Tab) 75 mg PO DAILY [facility] Last Admin: 04/13/25 09:14 Dose: 75 mg Dextrose/Water (Dextrose 50% Syringe 50 Ml) 25 ml IVP PER PROTOCOL PRN; Protocol PRN Reason: Hypoglycemia Dextrose/Water (Dextrose 50% Syringe 50 Ml) 50 ml IVP PER PROTOCOL PRN; Protocol PRN Reason: Hypoglycemia Furosemide (Furosemide 20 Mg Tab) 20 mg PO BID@0900,1600 [facility] Last Admin: 04/13/25 09:14 Dose: 20 mg Piperacillin Sod/Tazobactam (Sod 3.375 gm/ Sodium Chloride) 100 mls @ 25 mls/hr IVPB Q8HR [facility]; Protocol Last Admin: 04/13/25 09:14 Dose: 25 mls/hr Insulin Glargine (Insulin Glargine (Lantus) 100 Unit/Ml Syr) 30 unit SQ HS [facility] Last Admin: 04/12/25 21:23 Dose: 30 unit Insulin Human Lispro (Insulin Lispro (Humalog) 100 Unit/Ml 10 Ml Vl) 0 unit SQ ACHS [facility]; Protocol Last Admin: 04/13/25 07:31 Dose: 6 unit Metoprolol Succinate (Metoprolol Succinate (Er) 25 Mg Tab.Er.24h) 25 mg PO DAILY [facility] Last Admin: 04/13/25 09:15 Dose: 25 mg Social history: Lives with her parents. No alcohol. Patient smoked 1 pack a day from 1983 through 1997. On examination: VITAL SIGNS: 98.5, 80, 17, 169 x 78, 94% room air GENERAL APPEARANCE: Sitting at the edge of the bed HEENT: Normal external appearance of nose and ear. Oral cavity normal EYES: Pupils equal. Conjunctiva normal. NECK: JVD not raised. Mass not palpable. RESPIRATORY: Respiratory effort normal. Lungs clear to auscultation. CARDIOVASCULAR: First and second sounds normal. No edema. ABDOMEN: Soft. Liver and spleen not palpable. No tenderness. No mass palpable. PSYCHIATRY: Alert and oriented x3. Mood and affect normal. EXTREMITIES: Left foot: At the site of the left big toe incision site. Red and swollen lips. Slight drainage. INVESTIGATIONS, reviewed in the clinical context: ESR 47 CRP 1.8 April 11: White count 7.6 hemoglobin 12.7 platelets 323 potassium 4.4 creatinine 0.97 lactic acid 2.1 CRP 1.7 blood glucose 430 Previous investigations May 08, 2024: Creatinine 1.4 CT angiogram: February 2022 heavily calcified bilateral lower extremity arterial vasculature involving the superficial femoral arteries. Extending inferiorly. Extending into the femoral artery then is limited due to severe atherosclerotic plaque. Multiple areas of high-grade stenosis. Assessment and plan: -Acute infection of the incision of left big toe amputation that was done on March [address] Haines. Patient had tried 1 week of outpatient Keflex. Failed outpatient treatment. Elevated white count with lactic acidosis. IV Zosyn. Gentle hydration because of low EF Follow-up with ID and vascular -Ischemic cardiomyopathy, chronic EF 35 to 40% Lasix 20 mg twice daily -Severe triple-vessel coronary artery disease. Coronary artery disease, with last stent to the RCA April 2024 Plavix, aspirin -Severe peripheral arterial disease Patient's had left foot little finger amputated Aspirin, Plavix Lipitor-has had some problems in the past -Diabetes type 2 insulin-dependent, uncontrolled with hyperglycemia secondary infection Lantus. 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 and nephrosclerosis Baseline creatinine 1.2 -Essential hypertension, associated with chronic kidney disease: Uncontrolled Toprol-XL 25 mg amlodipine to 10 mg a day Add Cozaar 50 mg nightly -Intermittent asthma, not in exacerbation Albuterol as needed -Retinitis pigmentosa with loss of peripheral vision -Obesity with a BMI of 32.6 Weight loss measures -Full code Await cultures. Add Cozaar 50 mg nightly Past Medical History Past Medical History: Asthma, Blood Disorder, Coronary Artery Disease (CAD), Diabetes Mellitus, Eye Disorder, GERD/Reflux, Hyperlipidemia, Hypertension, Myocardial Infarction ([place]), Pneumonia, Skin Disorder, Vascular Disorder Additional Past Medical History / Comment(s): Type II diabetic IDDM. 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 Poor circulation to left leg. IBD. hx anemia. left foot great toe gangrene amputated mar 17 2025 Last Myocardial Infarction Date:: 05/2015 History of Any Multi-Drug Resistant Organisms: CRE, ESBL, MRSA Date of last positivie culture/infection: 05/06/24 - ESBL & CRE MDRO Source:: LEFT FOOT Past Surgical History: Heart Catheterization, Heart Catheterization With Stent, Joint Replacement, Orthopedic Surgery Additional Past Surgical History / Comment(s): boil under armpit(2000) Cardiac stent x3. Stent to left leg February 2024. Left 5th toe amputation April 2024 where patient coded due to too much anesthetics because she lost weight in 3 weeks and when she came back they miscalculated due to weight. Past Anesthesia/Blood Transfusion Reactions: Previous Problems w/ Anesthesia Additional Past Anesthesia/Blood Transfusion Reaction / Comment(s): No hx of blood transfusion. pt states went into cardiac arrest prior to toe debridement last year March 2024, states she was told received too much anesthesia. Date of Last Stent Placement:: 04/29/2024 Smoking Status: Former smoker
[2025-04-13 12:08] LABS: Glucose,Whole Blood 215 mg/dL (70-110)
[2025-04-13 16:54] LABS: Glucose,Whole Blood 356 mg/dL (70-110)
[2025-04-13 20:22] LABS: Glucose,Whole Blood 256 mg/dL (70-110)
[2025-04-13] MEDS: LOSARTAN 50 MG TAB PO SCH (20:57)
[2025-04-14 06:15] LABS: Glucose,Whole Blood 134 mg/dL (70-110)
--- NOTE | 2025-04-14 10:25 | P.PN ---
Subjective Progress Note Date: 04/14/25 Patient seen and examined today as a follow-up. No acute changes through the weekend. She has been afebrile. Preliminary wound culture with gram negative bacilli. She remains on IV Zosyn. States pain in her foot is improved as well as redness. Objective - Vital Signs Vital signs: Vital Signs Temp 98.0 F 04/14/25 07:16 Pulse 75 04/14/25 07:16 Resp 18 04/14/25 07:16 BP 178/87 04/14/25 07:16 Pulse Ox 96 04/14/25 07:16 FiO2 Intake & Output 04/13/25 04/14/25 04/14/25 18:59 06:59 18:59 Intake Total 240 Balance 240 Intake: Oral 240 Other: Voiding Method Toilet # Voids 2 - Exam General appearance: The patient is alert, oriented, appears in no acute distress. HET: Head is normocephalic and atraumatic. Neck: Supple. Abdomen: Soft, nondistended. Extremities: Left foot great toe amputation site mild dehiscence and fibrinous tissue, mild erythema surrounding edges, no drainage. Neurological: No focal deficits. Strength and sensation are grossly intact. - Labs CBC & Chem 7: 04/11/25 11:29 04/11/25 11:29 Labs: Abnormal Lab Results - Last 24 Hours (Table) 04/13/25 04/13/25 04/13/25 Range/Units 11:54 16:50 20:21 POC Glucose (mg/dL) 215 H 356 H 256 H (70-110) mg/dL 04/14/25 Range/Units 06:14 POC Glucose (mg/dL) 134 H (70-110) mg/dL Microbiology - Last 24 Hours (Table) 04/11/25 18:03 Gram Stain - Preliminary Toe - Left First Wound Culture - Preliminary Gram Neg Bacilli Assessment and Plan Assessment: 1. Left toe wound status post amputation 2. Diabetes mellitus 3. Chronic lower extremity swelling 4. History of coronary artery disease status post stenting on Plavix and aspirin Plan: 1. Continue with local wound care and IV antibiotics per recommendations from infectious disease 2. No plans on any surgical debridement 3. Outpatient follow-up with Dr. Haines in 1-2 weeks 4. Outpatient wound care follow-up, patient follows in [place] 5. Document postop shoe to left foot 6. Patient is cleared from vascular surgery for discharge Thank you for this consultation. The impression and plan of care has been dictated as directed. Dr. Haines I performed a history and examination of this patient, discussed the same with the dictator. I agree with the dictator's note ,documented as a scribe. Any additional findings or plans will be noted.
[2025-04-14 11:47] LABS: Glucose,Whole Blood 272 mg/dL (70-110)
--- NOTE | 2025-04-14 14:34 | XR ---
EXAMINATION TYPE: XR foot complete LT DATE OF EXAM: 04/14/2025 2:20 PM COMPARISON: 04/11/2025. CLINICAL INDICATION: Female, 59 years old with history of left big toe amputation site wound ,?osteo; PHH, pain TECHNIQUE: XR foot complete LT examined in the AP, oblique, and lateral projections. FINDINGS: FINDINGS: Postsurgical changes of the first digit with indication of the mid metatarsal. Additional indication of the fifth digit mid metatarsal no evidence for osseous erosion at the fifth digit. There is mild h azy margin of the first digit amputation site. Calcaneal plantar spurring. Atherosclerosis of the art erial vasculature. Scattered multifocal degeneration changes with osteophyte information joint space narrowing. IMPRESSION: 1. Similar Hazy margin of the first digit metatarsal at the patient's site consider three-phase bone scan for further evaluation for ostomy device. 2. Remote fracture of the second metatarsal. 3. Similar postsurgical changes of the fifth metatarsal without evidence for osseous erosion. [facility], Workstation: [facility], 04/14/2025 2:31 PM
[2025-04-14] MEDS: ERTAPENEM 1 GM in SODIUM CHLORIDE 0.9% 50 ML IVPB SCH (15:09)
[2025-04-14 16:37] LABS: Glucose,Whole Blood 340 mg/dL (70-110)
--- NOTE | 2025-04-14 18:22 | P.PN ---
Progress Note - Text Progress Note Date: 04/14/25 Chief Complaint: Infected foot wound Patient is a 59-year-old female, follows with Dr. Cortes History of coronary disease status post stent placement, diabetes type 2 insulin-dependent, hypertension, asthma and history of retinitis pigmentosa, anxiety 03/05/2024: CT angiogram of the abdomen aorta with runoff showed heavily calcified bilateral lower extremity arterial vasculature involving the superficial femoral arteries and extending inferiorly to the popliteal artery to the feet is limited due to severe atherosclerotic plaque. March 28, 2024: Left fifth toe ray amputation carried out by Dr. Ledesma. April 26, 2024: t cardiac catheterization by Dr. Andrea Donahue-: Long segment of severe stenosis 80 to 90% RCA. Circumflex 30%. LAD is diffusely diseased subtotally occluded in its midportion. Severe stenosis within the stent. Stent to the RCA In February of this year 2024 patient developed gangrene of left big toe. On March 17 underwent left great toe amputation with Dr. Haines. Patient followed up with Dr. Haines in 2 weeks. Had noticed some redness. She was given Keflex to return in 1 week. When she returned it was still somewhat red and the stitches were taken off. And Steri-Strips were placed. Patient presents now with worsening redness. Some drainage. Denies any fever or chills. Some local discomfort. Started on IV Zosyn. April 12: Pain controlled. Getting IV Zosyn. No surgical intervention per vascular. ID following. Eating fair. Discussed with patient April 13: Remains on IV Zosyn. Eating well. Pain controlled. Cultures pending. Will add Cozaar 50 mg nightly for blood pressure April 14: Patient wound culture growing E. coli ESBL. PICC line ordered by ID. On IV ertapenem. Manual blood pressure reading much better. Eating well. Active Medications Acetaminophen (Acetaminophen Tab 500 Mg Tab) 1,000 mg PO Q6H PRN PRN Reason: Pain Albuterol Sulfate (Albuterol Nebulized 2.5 Mg/3 Ml) 2.5 mg INHALATION RT-QID PRN PRN Reason: Shortness Of Breath Amlodipine Besylate (Amlodipine 10 Mg Tab) 10 mg PO DAILY [facility] Last Admin: 04/14/25 07:25 Dose: 10 mg Aspirin (Aspirin 81 Mg) 81 mg PO DAILY [facility] Last Admin: 04/14/25 07:25 Dose: 81 mg Clopidogrel Bisulfate (Clopidogrel 75 Mg Tab) 75 mg PO DAILY [facility] Last Admin: 04/14/25 07:25 Dose: 75 mg Dextrose/Water (Dextrose 50% Syringe 50 Ml) 25 ml IVP PER PROTOCOL PRN; Protocol PRN Reason: Hypoglycemia Dextrose/Water (Dextrose 50% Syringe 50 Ml) 50 ml IVP PER PROTOCOL PRN; Protocol PRN Reason: Hypoglycemia Furosemide (Furosemide 20 Mg Tab) 20 mg PO BID@0900,1600 [facility] Last Admin: 04/14/25 16:34 Dose: 20 mg Ertapenem 1 gm/ Sodium (Chloride) 50 mls @ 100 mls/hr IVPB DAILY@1400 [facility]; Protocol Last Admin: 04/14/25 15:09 Dose: 100 mls/hr Insulin Glargine (Insulin Glargine (Lantus) 100 Unit/Ml Syr) 30 unit SQ [facility] Last Admin: 04/13/25 20:57 Dose: 30 unit Insulin Human Lispro (Insulin Lispro (Humalog) 100 Unit/Ml 10 Ml Vl) 0 unit SQ [facility]; Protocol Last Admin: 04/14/25 16:56 Dose: 8 unit Losartan Potassium (Losartan 50 Mg Tab) 50 mg PO [facility] Last Admin: 04/13/25 20:57 Dose: 50 mg Metoprolol Succinate (Metoprolol Succinate (Er) 25 Mg Tab.Er.24h) 25 mg PO DAILY [facility] Last Admin: 04/14/25 07:25 Dose: 25 mg Social history: Lives with her parents. No alcohol. Patient smoked 1 pack a day from 1983 through 1997. On examination: VITAL SIGNS: 98.1, 75, 18, 128 x 62, 97% room air GENERAL APPEARANCE: Sitting up in bed, comfortable HEENT: Normal external appearance of nose and ear. Oral cavity normal EYES: Pupils equal. Conjunctiva normal. NECK: JVD not raised. Mass not palpable. RESPIRATORY: Respiratory effort normal. Lungs clear to auscultation. CARDIOVASCULAR: First and second sounds normal. No edema. ABDOMEN: Soft. Liver and spleen not palpable. No tenderness. No mass palpable. PSYCHIATRY: Alert and oriented x3. Mood and affect normal. EXTREMITIES: Left foot: At the site of the left big toe incision site. Red and swollen lips. Slight drainage.: Improving INVESTIGATIONS, reviewed in the clinical context: Wound culture: E. coli with ESBL ESR 47 CRP 1.8 April 11: White count 7.6 hemoglobin 12.7 platelets 323 potassium 4.4 creatinine 0.97 lactic acid 2.1 CRP 1.7 blood glucose 430 Previous investigations May 08, 2024: Creatinine 1.4 CT angiogram: February 2022 heavily calcified bilateral lower extremity arterial vasculature involving the superficial femoral arteries. Extending inferiorly. Extending into the femoral artery then is limited due to severe atherosclerotic plaque. Multiple areas of high-grade stenosis. Assessment and plan: -Acute infection of the incision of left big toe amputation that was done on March [address] Haines. Patient had tried 1 week of outpatient Keflex. Failed outpatient treatment. Wound culture: E. coli/ESBL Elevated white count with lactic acidosis. IV Zosyn discontinued. Started on IV ertapenem. PICC line ordered Follow-up with ID and vascular -Ischemic cardiomyopathy, chronic EF 35 to 40% Lasix 20 mg twice daily -Severe triple-vessel coronary artery disease. Coronary artery disease, with last stent to the RCA April 2024 Plavix, aspirin -Severe peripheral arterial disease Patient's had left foot little finger amputated Aspirin, Plavix Lipitor-has had some problems in the past -Diabetes type 2 insulin-dependent, uncontrolled with hyperglycemia secondary infection Lantus. 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 Past Medical History Past Medical History: Asthma, Blood Disorder, Coronary Artery Disease (CAD), Diabetes Mellitus, Eye Disorder, GERD/Reflux, Hyperlipidemia, Hypertension, Myocardial Infarction ([place]), Pneumonia, Skin Disorder, Vascular Disorder Additional Past Medical History / Comment(s): Type II diabetic IDDM. 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 Poor circulation to left leg. IBD. hx anemia. left foot great toe gangrene amputated mar 17 2025 Last Myocardial Infarction Date:: 05/2015 History of Any Multi-Drug Resistant Organisms: CRE, ESBL, MRSA Date of last positivie culture/infection: 05/06/24 - ESBL & CRE MDRO Source:: LEFT FOOT Past Surgical History: Heart Catheterization, Heart Catheterization With Stent, Joint Replacement, Orthopedic Surgery Additional Past Surgical History / Comment(s): boil under armpit(2000) Cardiac stent x3. Stent to left leg February 2024. Left 5th toe amputation April 2024 where patient coded due to too much anesthetics because she lost weight in 3 weeks and when she came back they miscalculated due to weight. Past Anesthesia/Blood Transfusion Reactions: Previous Problems w/ Anesthesia Additional Past Anesthesia/Blood Transfusion Reaction / Comment(s): No hx of blood transfusion. pt states went into cardiac arrest prior to toe debridement last year March 2024, states she was told received too much anesthesia. Date of Last Stent Placement:: 04/29/2024 Smoking Status: Former smoker
[2025-04-14 20:41] LABS: Glucose,Whole Blood 194 mg/dL (70-110)
[2025-04-14] MEDS: INSULIN GLARGINE (LANTUS) 100 UNIT/ML SYR SQ SCH (21:33)
--- NOTE | 2025-04-15 05:49 | P.PN ---
Subjective Progress Note Date: 04/13/25 Principal diagnosis: Left diabetic foot ulcer/cellulitis Patient is a 59-year-old female with a past medical history significant for multiple comorbidities including hypertension hyperlipidemia reflux diabetes mellitus asthma in this patient who is status post left big toe amputation secondary to gangrene on 03/17/[address] Haines now presented the hospital with dehiscence of the wound swelling redness concern for left foot wound infection. On today's evaluation that is 04/13/2025, the patient remains to be afebrile the patient is breathing comfortably on room air no chest pain shortness with or cough no nausea vomiting abdominal pain or diarrhea pain to the left foot is currently controlled. Culture from the left foot currently growing gram-negative with sensitivities pending Objective - Vital Signs Vital signs: Vital Signs Temp 98.2 F 04/13/25 14:04 Pulse 79 04/13/25 14:04 Resp 21 04/13/25 14:04 BP 173/121 04/13/25 14:04 Pulse Ox 96 04/13/25 14:04 FiO2 Intake & Output 04/12/25 04/13/25 04/13/25 18:59 06:59 18:59 Intake Total 1650 Balance 1650 Weight 86.183 kg Intake: Oral 1650 Other: Voiding Method Toilet # Voids 2 5 # Bowel Movements 0 - Exam GENERAL DESCRIPTION: Middle-age female in bed in no distress RESPIRATORY SYSTEM: Unlabored breathing , decreased breath sounds at bases HEART: S1 S2 regular rate and rhythm , ABDOMEN: Soft , no tenderness EXTREMITIES: Left foot is currently dressed no drainage - Labs CBC & Chem 7: 04/11/25 11:29 04/11/25 11:29 Labs: Abnormal Lab Results - Last 24 Hours (Table) 04/12/25 04/12/25 04/13/25 Range/Units 16:38 20:44 07:02 POC Glucose (mg/dL) 323 H 205 H 290 H (70-110) mg/dL 04/13/25 Range/Units 11:54 POC Glucose (mg/dL) 215 H (70-110) mg/dL Microbiology - Last 24 Hours (Table) 04/11/25 18:03 Gram Stain - Preliminary Toe - Left First Wound Culture - Preliminary Gram Neg Bacilli Assessment and Plan (1) Allergy to multiple antibiotics Current Visit: No Status: Acute Code(s): Z88.1 - ALLERGY STATUS TO OTHER ANTIBIOTIC AGENTS SNOMED Code(s): 302276721 (2) Cellulitis of left foot Current Visit: No Status: Acute Code(s): L03.116 - CELLULITIS OF LEFT LOWER LIMB SNOMED Code(s): 83460317927595025 (3) Diabetic infection of left foot Current Visit: No Status: Acute Code(s): E11.628 - TYPE 2 DIABETES MELLITUS WITH OTHER SKIN COMPLICATIONS; L08.9 - LOCAL INFECTION OF THE SKIN AND SUBCUTANEOUS TISSUE, UNSP SNOMED Code(s): 090332159 Plan: 1patient presented to hospital with increasing pain swelling redness to the left big toe amputation site wound that has failed outpatient oral Keflex therapy and will need to cover for more resistant gram-negative to be the likely pathogen. 2patient with multiple antibiotic ALLERGIES that would limit the number of a ntibiotic safe to use. 3local culture have been obtained which is currently growing gram-negative with ID sensitivities pending 4patient did have elevated sed rate and CRP 5she is currently being treated with Zosyn while waiting for the culture to finalize and will likely need IV antibiotic on discharge Dictation was produced using [employer] dictation software. please excuse any grammatical, word or spelling errors. Time with Patient: Less than 30
--- NOTE | 2025-04-15 05:50 | P.PN ---
Subjective Progress Note Date: 04/14/25 Principal diagnosis: Left diabetic foot ulcer/cellulitis Patient is a 59-year-old female with a past medical history significant for multiple comorbidities including hypertension hyperlipidemia reflux diabetes mellitus asthma in this patient who is status post left big toe amputation secondary to gangrene on 03/17/[address] Haines now presented the hospital with dehiscence of the wound swelling redness concern for left foot wound infection. On today's evaluation that is 04/14/2025, patient has been afebrile, patient is breathing comfortably and is currently on room air, patient denies having any chest pain and cough, patient denies nausea vomiting or diarrhea and no abdominal pain pain to the left foot is currently controlled. No new lab has been obtained today cultures growing ESBL E. coli Objective - Vital Signs Vital signs: Vital Signs Temp 98.0 F 04/14/25 07:16 Pulse 75 04/14/25 07:16 Resp 18 04/14/25 07:16 BP 178/87 04/14/25 07:16 Pulse Ox 96 04/14/25 07:16 FiO2 Intake & Output 04/13/25 04/14/25 04/14/25 18:59 06:59 18:59 Intake Total 480 Balance 480 Intake: Oral 480 Other: Voiding Method Toilet # Voids 2 - Exam GENERAL DESCRIPTION: Middle-age female in bed in no distress RESPIRATORY SYSTEM: Unlabored breathing , decreased breath sounds at bases HEART: S1 S2 regular rate and rhythm , ABDOMEN: Soft , no tenderness EXTREMITIES: Left foot is currently dressed no drainage - Labs CBC & Chem 7: 04/11/25 11:29 04/11/25 11:29 Labs: Abnormal Lab Results - Last 24 Hours (Table) 04/13/25 04/13/25 04/14/25 Range/Units 16:50 20:21 06:14 POC Glucose (mg/dL) 356 H 256 H 134 H (70-110) mg/dL 04/14/25 Range/Units 11:46 POC Glucose (mg/dL) 272 H (70-110) mg/dL Microbiology - Last 24 Hours (Table) 04/11/25 18:03 Gram Stain - Final Toe - Left First Wound Culture - Final Escherichia coli ESBL Assessment and Plan (1) Allergy to multiple antibiotics Current Visit: No Status: Acute Code(s): Z88.1 - ALLERGY STATUS TO OTHER ANTIBIOTIC AGENTS SNOMED Code(s): 755961782 (2) Cellulitis of left foot Current Visit: No Status: Acute Code(s): L03.116 - CELLULITIS OF LEFT LOWER LIMB SNOMED Code(s): 63276269131307581 (3) Diabetic infection of left foot Current Visit: No Status: Acute Code(s): E11.628 - TYPE 2 DIABETES MELLITUS WITH OTHER SKIN COMPLICATIONS; L08.9 - LOCAL INFECTION OF THE SKIN AND SUBCUTANEOUS TISSUE, UNSP SNOMED Code(s): 959867609 Plan: 1patient presented to hospital with increasing pain swelling redness to the left big toe amputation site wound that has failed outpatient oral Keflex therapy and will need to cover for more resistant gram-negative to be the likely pathogen. 2patient with multiple antibiotic ALLERGIES that would limit the number of antibiotic safe to use. 3local culture have been obtained which is currently growing ESBL E. coli 4patient did have elevated sed rate and CRP 5I will discontinue Zosyn and start the patient on Invanz 1 g daily PICC line has been ordered for outpatient IV antibiotic, discussed with admitting physician Dictation was produced using [employer] dictation software. please excuse any grammatical, word or spelling errors. Time with Patient: Less than 30
[2025-04-15 06:11] LABS: Glucose,Whole Blood 85 mg/dL (70-110)
[2025-04-15 06:47] LABS: Basophils # (A) 0.05 10*3/uL (0.00-0.10); Basophils % (A) 0.7 %; Eosinophils % (A) 1.4 %; HGB 11.9 g/dL (12.0-15.0); Lymphocytes % (A) 16.3 %; MCH 26.6 pg (27.0-32.0); MCHC 31.3 g/dL (32.0-37.0); MCV 84.8 fL (80.0-97.0); Mean Platelet Volume 9.5 fL (9.5-12.2); Monocytes # (A) 0.55 10*3/uL (0.20-1.00); Monocytes % (A) 7.5 %; Neutrophils # (A) 5.45 10*3/uL (1.80-7.70); Neutrophils % (A) 73.8 %; Platelet Count 296 10*3/uL (140-440); RBC 4.48 10*6/uL (4.10-5.20); RDW 14.9 % (11.5-14.5); WBC 7.37 10*3/uL (4.50-10.00)
[2025-04-15 07:01] LABS: ALT 11 U/L (4-34); AST 17 U/L (14-36); African American GFR (CKD) 58 (>60 ml/min/1.73 sqM); Albumin 3.3 g/dL (3.5-5.0); Albumin/Globulin Ratio 1.2; Alkaline Phosphatase 67 U/L (38-126); Anion Gap 7 mmol/L; Blood Urea Nitrogen 25 mg/dL (7-17); Carbon Dioxide 29 mmol/L (22-30); Chloride 103 mmol/L (98-107); Globulin 2.8 g/dL; Glucose 87 mg/dL (74-99); Non-African American GFR(CKD) 50 (>60 ml/min/1.73 sqM); Potassium 3.7 mmol/L (3.5-5.1); Sodium 139 mmol/L (137-145); Total Bilirubin 0.3 mg/dL (0.2-1.3); Total Protein 6.1 g/dL (6.3-8.2)
[2025-04-15 12:03] LABS: Glucose,Whole Blood 215 mg/dL (70-110)
[2025-04-15] MEDS: LOSARTAN 25 MG TAB PO STA (12:23)
--- NOTE | 2025-04-15 13:24 | P.PN ---
Subjective Progress Note Date: 04/15/25 Patient is seen and examined today as a follow-up. Patient is without any acute changes. She is afebrile. Denies any significant pain to the left foot. She had her PICC line placed today and states that she is awaiting insurance authorization for home infusion. Tentative plan for discharges today or tomorrow based on insurance authorization. Objective - Vital Signs Vital signs: Vital Signs Temp 98.1 F 04/15/25 08:04 Pulse 78 04/15/25 08:04 Resp 16 04/15/25 08:04 BP 175/75 04/15/25 08:04 Pulse Ox 96 04/15/25 08:04 FiO2 Intake & Output 04/14/25 04/15/25 04/15/25 18:59 06:59 18:59 Intake Total 2574 Balance 2574 Intake: Oral 2574 Other: Voiding Method Toilet # Voids 5 - Exam General appearance: The patient is alert, oriented, appears in no acute distress. HET: Head is normocephalic and atraumatic. Neck: Supple. Abdomen: Soft, nondistended. Extremities: Left foot with dressing clean dry and intact.. Neurological: No focal deficits. Strength and sensation are grossly intact. - Labs CBC & Chem 7: 04/15/25 05:35 04/15/25 05:35 Labs: Abnormal Lab Results - Last 24 Hours (Table) 04/14/25 04/14/25 04/14/25 Range/Units 11:46 16:35 20:39 Hgb (12.0-15.0) g/dL MCH (27.0-32.0) pg MCHC (32.0-37.0) g/dL RDW (11.5-14.5) % BUN (7-17) mg/dL Creatinine (0.52-1.04) mg/dL POC Glucose (mg/dL) 272 H 340 H 194 H (70-110) mg/dL Total Protein (6.3-8.2) g/dL Albumin (3.5-5.0) g/dL 04/15/25 04/15/25 Range/Units 05:35 05:35 Hgb 11.9 L (12.0-15.0) g/dL MCH 26.6 L (27.0-32.0) pg MCHC 31.3 L (32.0-37.0) g/dL RDW 14.9 H (11.5-14.5) % BUN 25 H (7-17) mg/dL Creatinine 1.18 H (0.52-1.04) mg/dL POC Glucose (mg/dL) (70-110) mg/dL Total Protein 6.1 L (6.3-8.2) g/dL Albumin 3.3 L (3.5-5.0) g/dL Microbiology - Last 24 Hours (Table) 04/11/25 18:03 Anaerobic Culture - Preliminary Toe - Left First 04/11/25 18:03 Gram Stain - Final Toe - Left First Wound Culture - Final Escherichia coli ESBL Assessment and Plan Assessment: 1. Left toe wound status post amputation 2. Diabetes mellitus 3. Chronic lower extremity swelling 4. History of coronary artery disease status post stenting on Plavix and aspirin Plan: 1. Continue with local wound care and IV antibiotics per recommendations from infectious disease 2. No plans on any surgical debridement 3. Outpatient follow-up with Dr. Haines in 1-2 weeks 4. Outpatient wound care follow-up, patient follows in [place], states she has appointment tomorrow 5. Recommend postop shoe to left foot 6. Patient is cleared from vascular surgery for discharge Thank you for this consultation. We will sign off at this time. The impression and plan of care has been dictated as directed. Dr. Haines I performed a history and examination of this patient, discussed the same with the dictator. I agree with the dictator's note ,documented as a scribe. Any additional findings or plans will be noted.
--- NOTE | 2025-04-15 13:52 | P.PN ---
Subjective Progress Note Date: 04/15/25 Principal diagnosis: Left diabetic foot ulcer/cellulitis Patient is a 59-year-old female with a past medical history significant for multiple comorbidities including hypertension hyperlipidemia reflux diabetes mellitus asthma in this patient who is status post left big toe amputation secondary to gangrene on 03/17/[address] Haines now presented the hospital with dehiscence of the wound swelling redness concern for left foot wound infection. On today's evaluation that is 04/15/2025, Patient is afebrile this morning patient denies having any chest pain shortness of breath or cough, the patient is currently on room air, patient denies any abdominal pain no diarrhea no nausea no vomiting pain to the left big toe medial side is currently controlled. Patient white count 7.37, creatinine 1.18 did have elevated sed rate of 47 x-ray did shows hazy appearance and suggestive of osteomyelitis. Objective - Vital Signs Vital signs: Vital Signs Temp 98.1 F 04/15/25 08:04 Pulse 78 04/15/25 08:04 Resp 16 04/15/25 08:04 BP 175/75 04/15/25 08:04 Pulse Ox 96 04/15/25 08:04 FiO2 Intake & Output 04/14/25 04/15/25 04/15/25 18:59 06:59 18:59 Intake Total 2574 Balance 2574 Intake: Oral 2574 Other: Voiding Method Toilet # Voids 5 - Exam GENERAL DESCRIPTION: Middle-age female in bed in no distress RESPIRATORY SYSTEM: Unlabored breathing , decreased breath sounds at bases HEART: S1 S2 regular rate and rhythm , ABDOMEN: Soft , no tenderness EXTREMITIES: Left foot is currently dressed no drainage - Labs CBC & Chem 7: 04/15/25 05:35 04/15/25 05:35 Labs: Abnormal Lab Results - Last 24 Hours (Table) 04/14/25 04/14/25 04/15/25 Range/Units 16:35 20:39 05:35 Hgb 11.9 L (12.0-15.0) g/dL MCH 26.6 L (27.0-32.0) pg MCHC 31.3 L (32.0-37.0) g/dL RDW 14.9 H (11.5-14.5) % BUN (7-17) mg/dL Creatinine (0.52-1.04) mg/dL POC Glucose (mg/dL) 340 H 194 H (70-110) mg/dL Total Protein (6.3-8.2) g/dL Albumin (3.5-5.0) g/dL 04/15/25 04/15/25 Range/Units 05:35 12:02 Hgb (12.0-15.0) g/dL MCH (27.0-32.0) pg MCHC (32.0-37.0) g/dL RDW (11.5-14.5) % BUN 25 H (7-17) mg/dL Creatinine 1.18 H (0.52-1.04) mg/dL POC Glucose (mg/dL) 215 H (70-110) mg/dL Total Protein 6.1 L (6.3-8.2) g/dL Albumin 3.3 L (3.5-5.0) g/dL Microbiology - Last 24 Hours (Table) 04/11/25 18:03 Anaerobic Culture - Preliminary Toe - Left First 04/11/25 18:03 Gram Stain - Final Toe - Left First Wound Culture - Final Escherichia coli ESBL Assessment and Plan (1) Allergy to multiple antibiotics Current Visit: No Status: Acute Code(s): Z88.1 - ALLERGY STATUS TO OTHER ANTIBIOTIC AGENTS SNOMED Code(s): 847321930 (2) Cellulitis of left foot Current Visit: No Status: Acute Code(s): L03.116 - CELLULITIS OF LEFT LOWER LIMB SNOMED Code(s): 47035664873066187 (3) Diabetic infection of left foot Current Visit: No Status: Acute Code(s): E11.628 - TYPE 2 DIABETES MELLITUS WITH OTHER SKIN COMPLICATIONS; L08.9 - LOCAL INFECTION OF THE SKIN AND SUBCUTANEOUS TISSUE, UNSP SNOMED Code(s): 831170320 Plan: 1patient presented to hospital with increasing pain swelling redness to the left big toe amputation site wound that has failed outpatient oral Keflex therapy and will need to cover for more resistant gram-negative to be the likely pathogen. 2patient with multiple antibiotic ALLERGIES that would limit the number of antibiotic safe to use. 3local culture have been obtained which is currently growing ESBL E. coli 4patient did have elevated sed rate and CRP with abnormal features seen on the x-ray highly suggestive of osteomyelitis 5patient is currently being treated with Invanz 1 g daily outpatient antibiotic prescription provided to the director case management currently waiting for arrangement of outpatient antibiotics before discharge Dictation was produced using [employer] software. please excuse any grammatical, word or spelling errors. Time with Patient: Less than 30
--- NOTE | 2025-04-15 15:51 | P.PN ---
Progress Note - Text Progress Note Date: 04/15/25 Chief Complaint: Infected foot wound Patient is a 59-year-old female, follows with Dr. Cortes History of coronary disease status post stent placement, diabetes type 2 insulin-dependent, hypertension, asthma and history of retinitis pigmentosa, anxiety 03/05/2024: CT angiogram of the abdomen aorta with runoff showed heavily calcified bilateral lower extremity arterial vasculature involving the superficial femoral arteries and extending inferiorly to the popliteal artery to the feet is limited due to severe atherosclerotic plaque. March 28, 2024: Left fifth toe ray amputation carried out by Dr. Ledesma. April 26, 2024: t cardiac catheterization by Dr. Andrea Donahue-: Long segment of severe stenosis 80 to 90% RCA. Circumflex 30%. LAD is diffusely diseased subtotally occluded in its midportion. Severe stenosis within the stent. Stent to the RCA In February of this 2024 patient developed gangrene of left big toe. On March 17 underwent left great toe amputation with Dr. Haines. Patient followed up with Dr. Haines in 2 weeks. Had noticed some redness. She was given Keflex to return in 1 week. When she returned it was still somewhat red and the stitches were taken off. And Steri-Strips were placed. Patient presents now with worsening redness. Some drainage. Denies any fever or chills. Some local discomfort. Started on IV Zosyn. April 12: Pain controlled. Getting IV Zosyn. No surgical intervention per vascular. ID following. Eating fair. Discussed with patient April 13: Remains on IV Zosyn. Eating well. Pain controlled. Cultures pending. Will add Cozaar 50 mg nightly for blood pressure April 14: Patient wound culture growing E. coli ESBL. PICC line ordered by ID. On IV ertapenem. Manual blood pressure reading much better. Eating well. April 15: Patient doing well. She got a PICC line this morning. Home antibiotics are being arranged. Per vascular patient follow-up with the wound care center at [place]. Eating well. For blood pressure Cozaar increased to 100 mg nightly. Active Medications Acetaminophen (Acetaminophen Tab 500 Mg Tab) 1,000 mg PO Q6H PRN PRN Reason: Pain Albuterol Sulfate (Albuterol Nebulized 2.5 Mg/3 Ml) 2.5 mg INHALATION RT-QID PRN PRN Reason: Shortness Of Breath Amlodipine Besylate (Amlodipine 10 Mg Tab) 10 mg PO DAILY [facility] Last Admin: 04/15/25 09:36 Dose: 10 mg Aspirin (Aspirin 81 Mg) 81 mg PO DAILY [facility] Last Admin: 04/15/25 09:36 Dose: 81 mg Clopidogrel Bisulfate (Clopidogrel 75 Mg Tab) 75 mg PO DAILY [facility] Last Admin: 04/15/25 09:36 Dose: 75 mg Dextrose/Water (Dextrose 50% Syringe 50 Ml) 25 ml IVP PER PROTOCOL PRN; Protocol PRN Reason: Hypoglycemia Dextrose/Water (Dextrose 50% Syringe 50 Ml) 50 ml IVP PER PROTOCOL PRN; Protocol PRN Reason: Hypoglycemia Furosemide (Furosemide 20 Mg Tab) 20 mg PO BID@0900,1600 [facility] Last Admin: 04/15/25 09:36 Dose: 20 mg Ertapenem 1 gm/ Sodium (Chloride) 50 mls @ 100 mls/hr IVPB DAILY@1400 [facility]; Protocol Last Admin: 04/15/25 13:54 Dose: 100 mls/hr Insulin Glargine (Insulin Glargine (Lantus) 100 Unit/Ml Syr) 40 unit SQ [facility] Last Admin: 04/14/25 21:33 Dose: 40 unit Insulin Human Lispro (Insulin Lispro (Humalog) 100 Unit/Ml 10 Ml Vl) 0 unit SQ [facility]; Protocol Last Admin: 04/15/25 12:23 Dose: 4 unit Losartan Potassium (Losartan 50 Mg Tab) 50 mg PO [facility] Last Admin: 04/14/25 21:33 Dose: 50 mg Metoprolol Succinate (Metoprolol Succinate (Er) 25 Mg Tab.Er.24h) 25 mg PO DAILY [facility] Last Admin: 04/15/25 09:36 Dose: 25 mg Social history: Lives with her parents. No alcohol. Patient smoked 1 pack a day from 1983 through 1997. On examination: VITAL SIGNS: 98.1, 78, 16, 175 x 75, 96% room air GENERAL APPEARANCE: Sitting up in bed, comfortable HEENT: Normal external appearance of nose and ear. Oral cavity normal EYES: Pupils equal. Conjunctiva normal. NECK: JVD not raised. Mass not palpable. RESPIRATORY: Respiratory effort normal. Lungs clear to auscultation. CARDIOVASCULAR: First and second sounds normal. No edema. ABDOMEN: Soft. Liver and spleen not palpable. No tenderness. No mass palpable. PSYCHIATRY: Alert and oriented x3. Mood and affect normal. EXTREMITIES: Left foot: At the site of the left big toe incision site. Red and swollen lips. Slight drainage.: Improving INVESTIGATIONS, reviewed in the clinical context: Wound culture: E. coli with ESBL ESR 47 CRP 1.8 April 11: White count 7.6 hemoglobin 12.7 platelets 323 potassium 4.4 creatinine 0.97 lactic acid 2.1 CRP 1.7 blood glucose 430 Previous investigations May 08, 2024: Creatinine 1.4 CT angiogram: February 2022 heavily calcified bilateral lower extremity arterial vasculature involving the superficial femoral arteries. Extending inferiorly. Extending into the femoral artery then is limited due to severe atherosclerotic plaque. Multiple areas of high-grade stenosis. Assessment and plan: -Acute infection of the incision of left big toe amputation that was done on March [address] Haines. Patient had tried 1 week of outpatient Keflex. Failed outpa tient treatment. Wound culture: E. coli/ESBL Elevated white count with lactic acidosis. IV Zosyn discontinued. Started on IV ertapenem. PICC line placed today. Will be discharged home IV ertapenem. Follow-up with ID and vascular -Ischemic cardiomyopathy, chronic EF 35 to 40% Lasix 20 mg twice daily -Severe triple-vessel coronary artery disease. Coronary artery disease, with last stent to the RCA April 2024 Plavix, aspirin -Severe peripheral arterial disease Patient's had left foot little finger amputated Aspirin, Plavix Lipitor-has had some problems in the past -Diabetes type 2 insulin-dependent, uncontrolled with hyperglycemia secondary infection Lantus. 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 Cozaar increased to 100 g nightly. Home antibiotic being arranged. Hopefully tomorrow. Past Medical History Past Medical History: Asthma, Blood Disorder, Coronary Artery Disease (CAD), Diabetes Mellitus, Eye Disorder, GERD/Reflux, Hyperlipidemia, Hypertension, Myocardial Infarction ([place]), Pneumonia, Skin Disorder, Vascular Disorder Additional Past Medical History / Comment(s): Type II diabetic IDDM. 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 Poor circulation to left leg. IBD. hx anemia. left foot great toe gangrene amputated mar 17 2025 Last Myocardial Infarction Date:: 05/2015 History of Any Multi-Drug Resistant Organisms: CRE, ESBL, MRSA Date of last positivie culture/infection: 05/06/24 - ESBL & CRE MDRO Source:: LEFT FOOT Past Surgical History: Heart Catheterization, Heart Catheterization With Stent, Joint Replacement, Orthopedic Surgery Additional Past Surgical History / Comment(s): boil under armpit(2000) Cardiac stent x3. Stent to left leg February 2024. Left 5th toe amputation April 2024 where patient coded due to too much anesthetics because she lost weight in 3 weeks and when she came back they miscalculated due to weight. Past Anesthesia/Blood Transfusion Reactions: Previous Problems w/ Anesthesia Additional Past Anesthesia/Blood Transfusion Reaction / Comment(s): No hx of blood transfusion. pt states went into cardiac arrest prior to toe debridement last year March 2024, states she was told received too much anesthesia. Date of Last Stent Placement:: 04/29/2024 Smoking Status: Former smoker
[2025-04-15 17:15] LABS: Glucose,Whole Blood 256 mg/dL (70-110)
[2025-04-15 20:27] LABS: Glucose,Whole Blood 280 mg/dL (70-110)
[2025-04-15] MEDS: LOSARTAN 50 MG TAB PO SCH (21:36)
[2025-04-16 06:05] LABS: Glucose,Whole Blood 89 mg/dL (70-110)
[2025-04-16 09:34] VITALS: RESP 18
[2025-04-16 11:38] LABS: Glucose,Whole Blood 183 mg/dL (70-110)
[2025-04-16] MEDS: cloNIDine HCL 0.1 MG TAB PO SCH (12:33)
[2025-04-16 15:37] VITALS: TEMP 97.8
[2025-04-16 16:28] VITALS: BP 154/73; PULSE 61
--- NOTE | 2025-04-16 18:22 | P.DS ---
Providers Date of admission: 04/11/25 13:20 Expected date of discharge: 04/16/25 Attending physician: Tyler Allen Consults: 04/11/25 13:20 Consult Physician Urgent Consulting Provider: Joe Haines Consult Reason/Comments: Osteomyelitis first metatarsal Do you want consulting provider notified?: Yes Consult Physician Urgent Consulting Provider: Nandini Flynn Consult Reason/Comments: Foot infection Do you want consulting provider notified?: Yes Primary care physician: Dylon [facility] Course: Chief Complaint: Infected foot wound Patient is a 59-year-old female, follows with Dr. Cortes History of coronary disease status post stent placement, diabetes type 2 insulin-dependent, hypertension, asthma and history of retinitis pigmentosa, an xiety 03/05/2024: CT angiogram of the abdomen aorta with runoff showed heavily calcified bilateral lower extremity arterial vasculature involving the superficial femoral arteries and extending inferiorly to the popliteal artery to the feet is limited due to severe atherosclerotic plaque. March 28, 2024: Left fifth toe ray amputation carried out by Dr. Ledesma. April 26, 2024: t cardiac catheterization by Dr. Andrea Donahue-: Long segment of severe stenosis 80 to 90% RCA. Circumflex 30%. LAD is diffusely diseased subtotally occluded in its midportion. Severe stenosis within the stent. Stent to the RCA In February of this year 2024 patient developed gangrene of left big toe. On March 17 underwent left great toe amputation with Dr. Haines. Patient followed up with Dr. Haines in 2 weeks. Had noticed some redness. She was given Keflex to return in 1 week. When she returned it was still somewhat red and the stitches were taken off. And Steri-Strips were placed. Patient presents now with worsening redness. Some drainage. Denies any fever or chills. Some local discomfort. Started on IV Zosyn. April 12: Pain controlled. Getting IV Zosyn. No surgical intervention per vascular. ID following. Eating fair. Discussed with patient April 13: Remains on IV Zosyn. Eating well. Pain controlled. Cultures pending. Will add Cozaar 50 mg nightly for blood pressure April 14: Patient wound culture growing E. coli ESBL. PICC line ordered by ID. On IV ertapenem. Manual blood pressure reading much better. Eating well. April 15: Patient doing well. She got a PICC line this morning. Home antibiotics are being arranged. Per vascular patient follow-up with the wound care center at [place]. Eating well. For blood pressure Cozaar increased to 100 mg nightly. April 16: Patient requesting her Cozaar to be switched to clonidine. Which works better for her. Prescription is being changed. Patient being discharged with advance as per ID. He will follow-up with both with vascular and with ID. Social history: Lives with her parents. No alcohol. Patient smoked 1 pack a day from 1983 through 1997. On examination: VITAL SIGNS: 97.8, 76, 18, 140 x 72, 98% room air GENERAL APPEARANCE: Sitting up in bed, comfortable HEENT: Normal external appearance of nose and ear. Oral cavity normal EYES: Pupils equal. Conjunctiva normal. NECK: JVD not raised. Mass not palpable. RESPIRATORY: Respiratory effort normal. Lungs clear to auscultation. CARDIOVASCULAR: First and second sounds normal. No edema. ABDOMEN: Soft. Liver and spleen not palpable. No tenderness. No mass palpable. PSYCHIATRY: Alert and oriented x3. Mood and affect normal. EXTREMITIES: Left foot: At the site of the left big toe incision site. Red and swollen lips. Slight drainage.: Improving INVESTIGATIONS, reviewed in the clinical context: Wound culture: E. coli with ESBL ESR 47 CRP 1.8 April 11: White count 7.6 hemoglobin 12.7 platelets 323 potassium 4.4 creatinine 0.97 lactic acid 2.1 CRP 1.7 blood glucose 430 Previous investigations May 08, 2024: Creatinine 1.4 CT angiogram: February 2022 heavily calcified bilateral lower extremity arterial vasculature involving the superficial femoral arteries. Extending inferiorly. Extending into the femoral artery then is limited due to severe atherosclerotic plaque. Multiple areas of high-grade stenosis. Assessment and plan: -Acute infection of the incision of left big toe amputation that was done on March [address] Haines. Patient had tried 1 week of outpatient Keflex. Failed outpatient treatment. Wound culture: E. coli/ESBL Elevated white count with lactic acidosis. IV Zosyn discontinued. Started on IV ertapenem. PICC line placed today. Will be discharged home IV ertapenem. Follow-up with ID and vascular -Ischemic cardiomyopathy, chronic EF 35 to 40% Lasix 20 mg twice daily -Severe triple-vessel coronary artery disease. Coronary artery disease, with last stent to the RCA April 2024 Plavix, aspirin -Severe peripheral arterial disease Patient's had left foot little finger amputated Aspirin, Plavix Lipitor-has had some problems in the past -Diabetes type 2 insulin-dependent, uncontrolled with hyperglycemia secondary infection Lantus. 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 and nephrosclerosis Baseline creatinine 1.2 -Essential hypertension, associated with chronic kidney disease: Better control Toprol-XL 25 mg amlodipine to 10 mg a day Per patient request Cozaar is being discontinued. Clonidine 0.1 mg twice daily -Intermittent asthma, not in exacerbation Albuterol as needed -Retinitis pigmentosa with loss of peripheral vision -Obesity with a BMI of 32.6 Weight loss measures -Full code Disposition: Home Past Medical History Past Medical History: Asthma, Blood Disorder, Coronary Artery Disease (CAD), Diabetes Mellitus, Eye Disorder, GERD/Reflux, Hyperlipidemia, Hypertension, Myocardial Infarction ([place]), Pneumonia, Skin Disorder, Vascular Disorder Additional Past Medical History / Comment(s): Type II diabetic IDDM. 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 Poor circulation to left leg. IBD. hx anemia. left foot great toe gangrene amputated mar 17 2025 Last Myocardial Infarction Date:: 05/2015 History of Any Multi-Drug Resistant Organisms: CRE, ESBL, MRSA Date of last positivie culture/infection: 05/06/24 - ESBL & CRE MDRO Source:: LEFT FOOT Past Surgical History: Heart Catheterization, Heart Catheterization With Stent, Joint Replacement, Orthopedic Surgery Additional Past Surgical History / Comment(s): boil under armpit(2000) Cardiac stent x3. Stent to left leg February 2024. Left 5th toe amputation April 2024 where patient coded due to too much anesthetics because she lost weight in 3 weeks and when she came back they miscalculated due to weight. Past Anesthesia/Blood Transfusion Reactions: Previous Problems w/ Anesthesia Additional Past Anesthesia/Blood Transfusion Reaction / Comment(s): No hx of blood transfusion. pt states went into cardiac arrest prior to toe debridement last year March 2024, states she was told received too much anesthesia. Date of Last Stent Placement:: 04/29/2024 Smoking Status: Former smoker Plan - Discharge Summary New Discharge Prescriptions: New cloNIDine HCL [Catapres] 0.1 mg PO BID #60 tab Ertapenem [INVanz] 1 gm IVPB Q24H #40 each Continue Aspirin EC [Ecotrin Low Dose] 81 mg PO DAILY amLODIPine [Norvasc] 10 mg PO DAILY #30 tab Metoprolol Succinate (ER) [Toprol XL] 25 mg PO DAILY #30 tab Clopidogrel [Plavix] 75 mg PO DAILY #30 tab Insulin Regular, Human [NovoLIN R] See Protocol SQ TID Furosemide [Lasix] 20 mg PO BID Albuterol Sulfate [Albuterol Sulfate Hfa] 2 puff INHALATION RT-QID PRN PRN Reason: Shortness Of Breath Acetaminophen Tab [Tylenol] 1,000 mg PO Q6H PRN PRN Reason: Pain Insulin Degludec [Tresiba Flextouch U-100 Pen] 30 units SQ HS Cyanocobalamin [Vitamin B-12 Injection] 1,000 mcg SQ Q30D Discontinued Cephalexin [Keflex] 500 mg PO Q6H Discharge Medication List Aspirin EC [Ecotrin Low Dose] 81 mg PO DAILY 03/03/24 [History] Clopidogrel [Plavix] 75 mg PO DAILY #30 tab 05/08/24 [Rx] Metoprolol Succinate (ER) [Toprol XL] 25 mg PO DAILY #30 tab 05/08/24 [Rx] amLODIPine [Norvasc] 10 mg PO DAILY #30 tab 05/08/24 [Rx] Insulin Degludec [Tresiba Flextouch U-100 Pen] 30 units SQ HS 02/27/25 [History] Insulin Regular, Human [NovoLIN R] See Protocol SQ TID 02/27/25 [History] Acetaminophen Tab [Tylenol] 1,000 mg PO Q6H PRN 04/11/25 [History] Albuterol Sulfate [Albuterol Sulfate Hfa] 2 puff INHALATION RT-QID PRN 04/11/25 [History] Cyanocobalamin [Vitamin B-12 Injection] 1,000 mcg SQ Q30D 04/11/25 [History] Furosemide [Lasix] 20 mg PO BID 04/11/25 [History] Ertapenem [INVanz] 1 gm IVPB Q24H #40 each 04/15/25 [Rx] cloNIDine HCL [Catapres] 0.1 mg PO BID #60 tab 04/16/25 [Rx] Follow up Appointment(s)/Referral(s): Home Health,[facility] [NON-STAFF] - 1-2 Days Joe Haines DO [STAFF PHYSICIAN] - 04/22/25 10:30 am Dylon Cortes MD [Primary Care Provider] - 04/17/25 1:00 pm Infusion Services,[facility] [REFERRING] - 1 Week Nandini Flynn MD [STAFF PHYSICIAN] - 2 Weeks (office not answering Please call to schedule appointment ) Ambulatory/Diagnostic Orders: Basic Metabolic Panel [LAB.AMB] Location: None Selected C Reactive Protein [LAB.AMB] Location: None Selected Complete Blood Count w/diff [LAB.AMB] Location: None Selected Erythrocyte Sedimentation Rate [LAB.AMB] Location: None Selected Activity/Diet/Wound Care/Special Instructions: Recommend wearing postop shoe or hard bottom shoe while ambulating. Keep surgical site covered. May shower no tub bathing or soaking, no swimming. Opticell silver to right great toe surgical site, 4 x 4 and wrapped with Kerlix. Change Monday. Follow-up with wound care in [place] as scheduled Discharge Disposition: HOME WITH HOME HEALTH SERVICES
== END 2025-04-16 17:03 | disposition home health service (06) | DRG 863 ==
LOC: EC 09:58 → 4SSUR 13:20
PROVIDERS: ADMIT Hospitalist; ATTEND Hospitalist
PROC: B5181ZA Fluoroscopy of Superior Vena Cava using Low Osmolar Contrast, Guidance (ICD-10-PCS; 2025-04-15)
PROC: B548ZZA Ultrasonography of Superior Vena Cava, Guidance (ICD-10-PCS; 2025-04-15)
PROC: 02HV33Z Insertion of Infusion Device into Superior Vena Cava, Percutaneous Approach (ICD-10-PCS; principal; 2025-04-15 07:30)
DX: T81.41XA Infection following a procedure, superficial incisional surgical site, initial encounter (principal); E87.20 Acidosis, unspecified; L03.116 Cellulitis of left lower limb; I25.5 Ischemic cardiomyopathy; E11.51 Type 2 diabetes mellitus with diabetic peripheral angiopathy without gangrene; B96.20 Unspecified Escherichia coli [E. coli] as the cause of diseases classified elsewhere; E11.22 Type 2 diabetes mellitus with diabetic chronic kidney disease; N18.30 Chronic kidney disease, stage 3 unspecified; I12.9 Hypertensive chronic kidney disease with stage 1 through stage 4 chronic kidney disease, or unspecified chronic kidney disease; J45.20 Mild intermittent asthma, uncomplicated; E66.9 Obesity, unspecified; E11.621 Type 2 diabetes mellitus with foot ulcer; E11.65 Type 2 diabetes mellitus with hyperglycemia; Z79.4 Long term (current) use of insulin; E11.69 Type 2 diabetes mellitus with other specified complication; L97.529 Non-pressure chronic ulcer of other part of left foot with unspecified severity; E11.628 Type 2 diabetes mellitus with other skin complications; Z68.32 Body mass index [BMI] 32.0-32.9, adult; I25.10 Atherosclerotic heart disease of native coronary artery without angina pectoris; M79.89 Other specified soft tissue disorders; Y84.8 Other medical procedures as the cause of abnormal reaction of the patient, or of later complication, without mention of misadventure at the time of the procedure; E78.5 Hyperlipidemia, unspecified; H35.52 Pigmentary retinal dystrophy; I25.2 Old myocardial infarction; Z79.02 Long term (current) use of antithrombotics/antiplatelets; Z79.82 Long term (current) use of aspirin; Z79.899 Other long term (current) drug therapy; Z87.891 Personal history of nicotine dependence; Z88.1 Allergy status to other antibiotic agents; Z89.412 Acquired absence of left great toe; Z89.429 Acquired absence of other toe(s), unspecified side; Z95.5 Presence of coronary angioplasty implant and graft; Z82.49 Family history of ischemic heart disease and other diseases of the circulatory system
CPT/HCPCS: 36415; 36573; 80053; 83036; 83605; 85025; 85652; 86140; 87070; 87075; 87077; 87186; 87205; 96365; 96366; 96367; 99285